=== PATIENT | male | born 1970 | race Caucasian/White ===

== ENCOUNTER 2017-03-08 23:24 | Emergency (ER) | payer MEDICARE, OTHER ==
[~2017-03-08] VITALS: Ht 162.6 cm; Wt 51.9 kg
[~2017-03-08 23:24] MED LIST: BACTRIM DS TAB1 EACH PO; CEPHALEXIN500 MG PO; HALOPERIDOL2 MG; HALOPERIDOL2 MG PO
== END 2017-03-09 00:21 | disposition home or self-care (01) ==
LOC: ED 23:24
DX: R63.4 Abnormal weight loss (principal); F15.10 Other stimulant abuse, uncomplicated; F99 Mental disorder, not otherwise specified; M79.673 Pain in unspecified foot; G89.29 Other chronic pain; F17.200 Nicotine dependence, unspecified, uncomplicated
CPT/HCPCS: 99282

== ENCOUNTER 2017-06-09 22:11 | Emergency (ER) | payer MEDICARE, OTHER | END 2017-06-09 22:20 | disposition left against medical advice (07) | LOC: ED 22:11 | DX: Z53.21 Procedure and treatment not carried out due to patient leaving prior to being seen by health care provider (principal) ==

== ENCOUNTER 2017-06-17 22:56 | Emergency (ER) | payer MEDICARE, OTHER ==
[~2017-06-17] VITALS: Ht 162.6 cm; Wt 54.0 kg
[2017-06-18] MEDS ORDERED: VENTOLIN HFA18 GM INH (00:25)
[2017-06-18] MEDS ORDERED: PREDNISONE20 MG PO (00:25)
--- NOTE | 2017-06-18 08:29 | EKG ---
[facility] [address] [facility] [place], [place] [address] Signed Normal sinus rhythm Possible Left atrial enlargement Nonspecific T wave abnormality Abnormal ECG No previous ECGs available Confirmed by CANDICE BOTELLO MD ([id number]) on 06/18/2017 8:29:52 AM Electronically Signed By: CANDICE BOTELLO MD 06/18/17 0829 PATIENT NAME: VALENTINO SORTO LYDIA Electrocardiogram DATE OF : 68 PHYSICIAN: CANDICE BOTELLO MD REPORT #: [id number] REPORT IS CONFIDENTIAL AND NOT TO BE RELEASED WITHOUT AUTHORIZATION
== END 2017-06-18 00:39 | disposition home or self-care (01) ==
LOC: ED 22:56
DX: J44.1 Chronic obstructive pulmonary disease with (acute) exacerbation (principal); F17.200 Nicotine dependence, unspecified, uncomplicated
CPT/HCPCS: 71010; 93005; 93010; 94640; 99284; J7512

== ENCOUNTER 2017-08-07 14:50 | Emergency (ER) | payer MEDICARE, OTHER ==
[~2017-08-07] VITALS: Ht 162.6 cm; Wt 54.0 kg
[~2017-08-07 14:50] MED LIST changes: +PREDNISONE20 MG PO; +VENTOLIN HFA18 GM INH
[2017-08-07] MEDS ORDERED: VENTOLIN HFA18 GM INH (15:21)
[2017-08-07] MEDS ORDERED: METHYLPREDNISOLO4 M1 PO (15:21)
[2017-08-07] MEDS ORDERED: ZITHROMAX250 MG PO (15:21)
[2017-08-07] MEDS ORDERED: OSELTAMIVIR PHO75 MG PO (15:26)
[2017-08-07] MEDS ORDERED: ZOFRAN ODT4 MG PO (15:26)
== END 2017-08-07 15:34 | disposition home or self-care (01) ==
LOC: ED 14:50
DX: J40 Bronchitis, not specified as acute or chronic (principal); F17.200 Nicotine dependence, unspecified, uncomplicated; Z98.890 Other specified postprocedural states; Z79.899 Other long term (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
CPT/HCPCS: 99283

== ENCOUNTER 2017-09-07 08:25 | Emergency (ER) | payer MEDICARE, OTHER ==
[~2017-09-07] VITALS: Ht 162.6 cm; Wt 54.0 kg
[~2017-09-07 08:25] MED LIST changes: +METHYLPREDNISOLO4 M1 PO; +OSELTAMIVIR PHO75 MG PO; +ZITHROMAX250 MG PO; +ZOFRAN ODT4 MG PO
[2017-09-07] MEDS ORDERED: IBUPROFEN600 MG PO (09:08)
[2017-09-07] MEDS ORDERED: CLEOCIN HCL300 MG PO (09:08)
== END 2017-09-07 09:21 | disposition home or self-care (01) ==
LOC: ED 08:25
PROC: 0H9FXZZ Drainage of Right Hand Skin, External Approach (ICD-10-PCS; principal; 2017-09-07)
DX: L03.011 Cellulitis of right finger (principal); F17.200 Nicotine dependence, unspecified, uncomplicated; Z79.899 Other long term (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
CPT/HCPCS: 10060; 99283

== ENCOUNTER 2017-09-28 13:10 | Emergency (ER) | payer MEDICARE, OTHER ==
[~2017-09-28] VITALS: Ht 162.6 cm; Wt 54.0 kg
[~2017-09-28 13:10] MED LIST changes: +CLEOCIN HCL300 MG PO; +IBUPROFEN600 MG PO
[2017-09-28] MEDS ORDERED: ROBITUSSIN COU237 M2 PO (13:27)
[2017-09-28] MEDS ORDERED: PROAIR HFA8.5 GM INH (13:27)
== END 2017-09-28 13:35 | disposition home or self-care (01) ==
LOC: ED 13:10
DX: J06.9 Acute upper respiratory infection, unspecified (principal); F17.200 Nicotine dependence, unspecified, uncomplicated; Z79.2 Long term (current) use of antibiotics; Z79.899 Other long term (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
CPT/HCPCS: 99283

== ENCOUNTER 2017-10-07 23:13 | Emergency (ER) | payer MEDICARE, OTHER ==
[~2017-10-07] VITALS: Ht 162.6 cm; Wt 54.0 kg
[~2017-10-07 23:13] MED LIST changes: +PROAIR HFA8.5 GM INH; +ROBITUSSIN COU237 M2 PO
[2017-10-08] MEDS ORDERED: BACTRIM DS TAB1 EACH PO (00:13)
== END 2017-10-08 00:21 | disposition home or self-care (01) ==
LOC: ED 23:13
DX: L08.9 Local infection of the skin and subcutaneous tissue, unspecified (principal); F17.200 Nicotine dependence, unspecified, uncomplicated
CPT/HCPCS: 99283

== ENCOUNTER 2017-12-22 07:29 | Emergency (ER) | payer MEDICARE, OTHER ==
[~2017-12-22] VITALS: Ht 162.6 cm; Wt 54.0 kg
[2017-12-22] MEDS ORDERED: PIMOZIDE PO (09:38)
== END 2017-12-22 07:45 | disposition home or self-care (01) ==
LOC: ED 07:29
DX: M79.89 Other specified soft tissue disorders (principal)

== ENCOUNTER 2019-01-27 08:58 | Emergency (ER) | payer SELFPAY ==
[~2019-01-27] VITALS: Ht 162.6 cm; Wt 56.7 kg
[~2019-01-27 08:58] MED LIST changes: +PIMOZIDE PO
--- OUTSIDE RECORDS SUMMARY | 2019-01-27 09:02 | XMS ---
PreManage Notification: VALENTINO SORTO Security Joist Setter Events No recent Security Events currently on file CRITERIA MET - Group Notification - [facility] - Has Care Guidelines CARE PROVIDERS There are no care providers on record at this time. [place] has no Care Guidelines for this patient. Care History Social 10/07/2017 [facility] - CHW Is unable to contact patient. - Phone number on record is no longer in service. - Please update phone number if patient is seen in ED and or contact CHW at [phone]. Care Recommendation: This patient has had 5 or more Emergency Department visits in the last 12 months.\T\nbsp; Patient requires education on the scope and purpose of the ED as an acute care provider not a Primary Care Provider and should not be utilized for chronic conditions.\T\nbsp; If patient returns to ED please contact Community Health WorkerDanuta at [phone]. These are guidelines and the provider should exercise clinical judgment when providing care. E.D. VISIT COUNT ([address] 2 [facility] TOTAL 2 NOTE: Visits indicate total known visits. ED/UCC VISIT TRACKING (12 MO.) 01/27/2019 09:01 [facility] [place] TYPE: Emergency COMPLAINT: - R LEG SWOLLEN/DIZZY 02/21/2018 17:59 [facility] [place] TYPE: Emergency COMPLAINT: - SKIN ISSUES ON HANDS FEET DIAGNOSES: - Other shelter (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 - Delusional disorders - Nicotine dependence, unspecified, uncomplicated - Other specified disorders of the skin and subcutaneous tissue - Encounter for issue of repeat prescription INPATIENT VISIT TRACKING (12 MO.) No inpatient visits to display in this time frame [id number]
[2019-01-27] MEDS ORDERED: KEFLEX500 MG PO (10:18)
== END 2019-01-27 10:28 | disposition home or self-care (01) ==
LOC: ED 08:58
DX: L03.115 Cellulitis of right lower limb (principal); F17.200 Nicotine dependence, unspecified, uncomplicated; Z79.899 Other long term (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
CPT/HCPCS: 93971; 99283-25

== ENCOUNTER 2020-01-23 08:52 | Emergency (ER) | payer MEDICARE ==
[~2020-01-23] VITALS: Ht 162.6 cm; Wt 56.7 kg
[~2020-01-23 08:52] MED LIST changes: +KEFLEX500 MG PO
--- OUTSIDE RECORDS SUMMARY | 2020-01-23 08:54 | XMS ---
PreManage Notification: VALENTINO SORTO Security Oiler Bander Events No recent Security Events currently on file CRITERIA MET - Group Notification CARE PROVIDERS There are no care providers on record at this time. [place] has no Care Guidelines for this patient. Care History Social 10/07/2017 [facility] - CHW Is unable to contact patient. - Phone number on record is no longer in service. - Please update phone number if patient is seen in ED and or contact CHW at [phone]. Care Recommendation: This patient has had 5 or more Emergency Department visits in the last 12 months.\T\nbsp; Patient requires education on the scope and purpose of the ED as an acute care provider not a Primary Care Provider and should not be utilized for chronic conditions.\T\nbsp; If patient returns to ED please contact Community Health WorkerDanuta at [phone]. These are guidelines and the provider should exercise clinical judgment when providing care. E.D. VISIT COUNT (12 MO.) 3 [facility] TOTAL 3 NOTE: Visits indicate total known visits. ED/UCC VISIT TRACKING (12 MO.) 01/23/2020 08:53 [facility] [place] TYPE: Emergency COMPLAINT: - ANKLE PAIN, POSSIBLE INFECTION 11/06/2019 01:12 [facility] [place] TYPE: Emergency COMPLAINT: - SPIDERS IN SKIN 01/27/2019 09:01 [facility] [place] TYPE: Emergency COMPLAINT: - R LEG SWOLLEN/DIZZY DIAGNOSES: - Cellulitis of right lower limb - Other snf (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 - Other specified soft tissue disorders - Nicotine dependence, unspecified, uncomplicated INPATIENT VISIT TRACKING (12 MO.) No inpatient visits to display in this time frame [id number]
[2020-01-23] MEDS ORDERED: PREDNISONE20 MG PO (11:22)
== END 2020-01-23 11:44 | disposition home or self-care (01) ==
LOC: ED 08:52
DX: M10.9 Gout, unspecified (principal); F17.200 Nicotine dependence, unspecified, uncomplicated
CPT/HCPCS: 73610; 85379; 99283

== ENCOUNTER 2020-04-01 02:54 | Emergency (ER) | payer MEDICARE, OTHER ==
[~2020-04-01] VITALS: Ht 162.6 cm; Wt 56.7 kg
--- OUTSIDE RECORDS SUMMARY | 2020-04-01 02:58 | XMS ---
PreManage Notification: VALENTINO SORTO Security Rn Sane Events No recent Security Events currently on file CRITERIA MET - Group Notification CARE PROVIDERS HARI [facility] 01/24/2020-Current PHONE: [phone] [place] has no Care Guidelines for this patient. Care History Medical/Surgical 01/24/2020 [facility] - PATIENT CONTACT NUMBER PROVIDED - PATIENT NO LONGER RESIDES AT THE ADDRESS, FAMILY IS UNKNOWN OF PATIENTS CURRENT RESIDENCE. - IF PATIENT IS SEE IN THE ED AGAIN- PLEASE REFER TO WALK IN CLINIC FOR NON URGENT MEDICAL NEEDS. - PLEASE CONTACT CHWBryce SURESH\\T\\nbsp; [phone] FOR FURTHER CONTACT WITH PATIENT. Social 10/07/2017 [facility] - CHW Is unable to contact patient. - Phone number on record is no longer in service. - Please update phone number if patient is seen in ED and or contact CHW at [phone]. Care Recommendation: This patient has had 5 or more Emergency Department visits in the last 12 months.\\T\\nbsp; Patient requires education on the scope and purpose of the ED as an acute care provider not a Primary Care Provider and should not be utilized for chronic conditions.\\T\\nbsp; If patient returns to ED please contact Community Health WorkerDanuta at [phone]. These are guidelines and the provider should exercise clinical judgment when providing care. E.D. VISIT COUNT (12 MO.) [address] [facility] TOTAL 3 NOTE: Visits indicate total known visits. ED/UCC VISIT TRACKING (12 MO.) 04/01/2020 02:55 [facility] [place] TYPE: Emergency COMPLAINT: - "SPIDERS IN MY BODY" 01/23/2020 08:53 [facility] [place] TYPE: Emergency COMPLAINT: - ANKLE PAIN, POSSIBLE INFECTION DIAGNOSES: - Nicotine dependence, unspecified, uncomplicated - Pain in left foot - Gout, unspecified 11/06/2019 01:12 [facility] [place] TYPE: Emergency COMPLAINT: - SPIDERS IN SKIN INPATIENT VISIT TRACKING (12 MO.) No inpatient visits to display in this time frame [id number]
== END 2020-04-01 03:22 | disposition home or self-care (01) ==
LOC: ED 02:54
DX: R20.0 Anesthesia of skin (principal)

== ENCOUNTER 2020-05-09 16:53 | Emergency (ER) | payer MEDICARE, OTHER ==
[~2020-05-09] VITALS: Ht 175.3 cm; Wt 54.4 kg
--- OUTSIDE RECORDS SUMMARY | 2020-05-09 16:56 | XMS ---
PreManage Notification: VALENTINO SORTO Security Technology Intern Events No recent Security Events currently on file CRITERIA MET - Group Notification CARE PROVIDERS HARI [facility] 01/24/2020-Current PHONE: [phone] [place] has no Care Guidelines for this patient. Care History Medical/Surgical 01/24/2020 [facility] - PATIENT CONTACT NUMBER PROVIDED - PATIENT NO LONGER RESIDES AT THE ADDRESS, FAMILY IS UNKNOWN OF PATIENTS CURRENT RESIDENCE. - IF PATIENT IS SEE IN THE ED AGAIN- PLEASE REFER TO WALK IN CLINIC FOR NON URGENT MEDICAL NEEDS. - PLEASE CONTACT CHWBryce SURESH\\T\\nbsp; [phone] FOR FURTHER CONTACT WITH PATIENT. Social 10/07/2017 [facility] - CHW Is unable to contact patient. - Phone number on record is no longer in service. - Please update phone number if patient is seen in ED and or contact CHW at [phone]. Care Recommendation: This patient has had 5 or more Emergency Department visits in the last 12 months.\\T\\nbsp; Patient requires education on the scope and purpose of the ED as an acute care provider not a Primary Care Provider and should not be utilized for chronic conditions.\\T\\nbsp; If patient returns to ED please contact Community Health WorkerDanuta at [phone]. These are guidelines and the provider should exercise clinical judgment when providing care. E.D. VISIT COUNT (12 MO.) [address] [facility] TOTAL 4 NOTE: Visits indicate total known visits. ED/UCC VISIT TRACKING (12 MO.) 05/09/2020 16:54 [facility] [place] TYPE: Emergency COMPLAINT: - BLOOD IN STOOL 04/01/2020 02:55 [facility] [place] TYPE: Emergency COMPLAINT: - "SPIDERS IN MY BODY" DIAGNOSES: - Anesthesia of skin - Anesthesia of skin 01/23/2020 08:53 [facility] [place] TYPE: Emergency COMPLAINT: - ANKLE PAIN, POSSIBLE INFECTION DIAGNOSES: - Nicotine dependence, unspecified, uncomplicated - Pain in left foot - Gout, unspecified 11/06/2019 01:12 [facility] [place] TYPE: Emergency COMPLAINT: - SPIDERS IN SKIN INPATIENT VISIT TRACKING (12 MO.) No inpatient visits to display in this time frame [id number]
== END 2020-05-09 19:07 | disposition home or self-care (01) ==
LOC: ED 16:53
DX: K59.00 Constipation, unspecified (principal); K60.2 Anal fissure, unspecified; F17.200 Nicotine dependence, unspecified, uncomplicated
CPT/HCPCS: 80048; 85025; 99284

== ENCOUNTER 2020-05-24 06:03 | Emergency (ER) | payer MEDICARE, OTHER ==
[~2020-05-24] VITALS: Ht 162.6 cm; Wt 53.5 kg
--- OUTSIDE RECORDS SUMMARY | 2020-05-24 06:04 | XMS ---
PreManage Notification: VALENTINO SORTO Security Electronics Worker Events No recent Security Events currently on file CRITERIA MET - Group Notification - [facility] - 2 Visits in 30 Days CARE PROVIDERS HARI [facility] 01/24/2020-Current PHONE: [phone] [place] has no Care Guidelines for this patient. Care History Social 10/07/2017 [facility] - CHW Is unable to contact patient. - Phone number on record is no longer in service. - Please update phone number if patient is seen in ED and or contact EMMANUELW at [phone]. Care Recommendation: This patient has had 5 or more Emergency Department visits in the last 12 months.\\T\\nbsp; Patient requires education on the scope and purpose of the ED as an acute care provider not a Primary Care Provider and should not be utilized for chronic conditions.\\T\\nbsp; If patient returns to ED please contact Community Health WorkerDanuta at [phone]. These are guidelines and the provider should exercise clinical judgment when providing care. Medical/Surgical 05/10/2020 [facility] - PATIENT NUMBER LISTED IS NOT A GOOD CONTACT NUMBER FOR PATIENT- PATIENT FAMILY MEMBER STATED PATIENT NO LONGER RESIDES AT THEIR RESIDENCE -PATIENT CURRENTLY LIVES ON [place] STRE[address]. 01/24/2020 [facility] - PATIENT CONTACT NUMBER PROVIDED - PATIENT NO LONGER RESIDES AT THE ADDRESS, FAMILY IS UNKNOWN OF PATIENTS CURRENT RESIDENCE. - IF PATIENT IS SEEN IN THE ED AGAIN- PLEASE REFER TO WALK IN CLINIC FOR NON URGENT MEDICAL NEEDS. - [facility]; [phone] FOR FURTHER CONTACT WITH PATIENT. Shabazz VISIT COUNT (12 MO.) 5 [facility] TOTAL 5 NOTE: Visits indicate total known visits. ED/UCC VISIT TRACKING (12 MO.) 05/24/2020 06:03 [facility] [place] TYPE: Emergency COMPLAINT: - SUICIDAL 05/09/2020 16:[address] [facility] [place] TYPE: Emergency COMPLAINT: - CONSTIPATION DIAGNOSES: - Nicotine dependence, unspecified, uncomplicated - Constipation, unspecified - Anal fissure, unspecified 04/01/2020 02:55 [facility] [place] TYPE: Emergency COMPLAINT: - "SPIDERS IN MY BODY" DIAGNOSES: - Anesthesia of skin - Anesthesia of skin 01/23/2020 08:53 [facility] [place] [facility] [place] TYPE: Emergency COMPLAINT: - ANKLE PAIN, POSSIBLE INFECTION DIAGNOSES: - Nicotine dependence, unspecified, uncomplicated - Pain in left foot - Gout, unspecified 11/06/2019 01:12 [facility] [place] TYPE: Emergency COMPLAINT: - SPIDERS IN SKIN INPATIENT VISIT TRACKING (12 MO.) No inpatient visits to display in this time frame [id number]
== END 2020-05-24 06:47 | disposition home or self-care (01) ==
LOC: ED 06:03
DX: F15.10 Other stimulant abuse, uncomplicated (principal); F17.200 Nicotine dependence, unspecified, uncomplicated
CPT/HCPCS: 80053; 80176; 81001; 84443; 85025; 99284; G0480

== ENCOUNTER 2020-06-16 12:49 | Emergency (ER) | payer MEDICARE, OTHER ==
[~2020-06-16] VITALS: Ht 162.6 cm; Wt 54.4 kg
--- OUTSIDE RECORDS SUMMARY | 2020-06-16 12:52 | XMS ---
PreManage Notification: VALENTINO SORTO Security Supervisor Fruit Grading Events No recent Security Events currently on file CRITERIA MET - Group Notification - [facility] - 2 Visits in 30 Days CARE PROVIDERS HARI [facility] 01/24/2020-Current PHONE: [phone] [place] has no Care Guidelines for this patient. Care History Medical/Surgical 05/10/2020 [facility] - PATIENT NUMBER LISTED IS NOT A GOOD CONTACT NUMBER FOR PATIENT- PATIENT FAMILY MEMBER STATED PATIENT NO LONGER RESIDES AT THEIR RESIDENCE -PATIENT CURRENTLY LIVES ON [place] STRE[address]. 01/24/2020 [facility] - PATIENT CONTACT NUMBER PROVIDED - PATIENT NO LONGER RESIDES AT THE ADDRESS, FAMILY IS UNKNOWN OF PATIENTS CURRENT RESIDENCE. - IF PATIENT IS SEEN IN THE ED AGAIN- PLEASE REFER TO WALK IN CLINIC FOR NON URGENT MEDICAL NEEDS. - PLEASE CONTACT CHWBryce SURESH\\T\\nbsp; [phone] FOR FURTHER CONTACT WITH PATIENT. Social 10/07/2017 [facility] - CHW Is unable to contact patient. - Phone number on record is no longer in service. - Please update phone number if patient is seen in ED and or contact CHW at [phone]. Care Recommendation: This patient has had 5 or more Emergency Department visits in the last 12 months.\\T\\nbsp; Patient requires education on the scope and purpose of the ED as an acute care provider not a Primary Care Provider and should not be utilized for chronic conditions.\\T\\nbsp; If patient returns to ED please contact Community Health Worker Danuta at [phone]. These are guidelines and the provider should exercise clinical judgment when providing care. EGenoveva VISIT COUNT (12 MO.) 6 [facility] TOTAL 6 NOTE: Visits indicate total known visits. ED/UCC VISIT TRACKING (12 MO.) 06/16/2020 12:50 [facility] [place] TYPE: Emergency COMPLAINT: - L HAND SWELLING 05/24/2020 06:[address] [facility] [place] TYPE: Emergency COMPLAINT: - SUICIDAL DIAGNOSES: - Other stimulant abuse, uncomplicated - Nicotine dependence, unspecified, uncomplicated 05/09/2020 16:[address] [facility] [place] TYPE: Emergency COMPLAINT: - CONSTIPATION DIAGNOSES: - Nicotine dependence, unspecified, uncomplicated - Constipation, unspecified - Anal fissure, unspecified 04/01/2020 02:[address] [facility] [place] TYPE: Emergency COMPLAINT: - "SPIDERS IN MY BODY" DIAGNOSES: - Anesthesia of skin - Anesthesia of skin 01/23/2020 08:[address] [facility] [place] TYPE: Emergency COMPLAINT: - ANKLE PAIN, POSSIBLE INFECTION DIAGNOSES: - Nicotine dependence, unspecified, uncomplicated - Pain in left foot - Gout, unspecified 11/06/2019 01:12 [facility] [place] TYPE: Emergency COMPLAINT: - SPIDERS IN SKIN INPATIENT VISIT TRACKING (12 MO.) No inpatient visits to display in this time frame [id number]
[2020-06-16] MEDS ORDERED: CLEOCIN HCL300 MG PO (14:43)
== END 2020-06-16 15:21 | disposition home or self-care (01) ==
LOC: ED 12:49
DX: K04.7 Periapical abscess without sinus (principal); M79.89 Other specified soft tissue disorders; F17.200 Nicotine dependence, unspecified, uncomplicated
CPT/HCPCS: 73130; 99283-25

== ENCOUNTER 2020-07-08 08:20 | Emergency (ER) | payer MEDICARE ==
[~2020-07-08] VITALS: Ht 162.6 cm; Wt 54.4 kg
--- OUTSIDE RECORDS SUMMARY | 2020-07-08 08:24 | XMS ---
PreManage Notification: VALENTINO SORTO Security Tar Distillation Supervisor Events No recent Security Events currently on file CRITERIA MET - Group Notification - 6 ED Visits in 6 Months - [facility] [place] [facility] - 2 Visits in 30 Days CARE PROVIDERS HARI [facility] 01/24/2020-Current PHONE: [phone] [place] has no Care Guidelines for this patient. Care History Medical/Surgical 05/10/2020 [facility] - PATIENT NUMBER LISTED IS NOT A GOOD CONTACT NUMBER FOR PATIENT- PATIENT FAMILY MEMBER STATED PATIENT NO LONGER RESIDES AT THEIR RESIDENCE -PATIENT CURRENTLY LIVES ON [place] [address]. 01/24/2020 [facility] - PATIENT CONTACT NUMBER PROVIDED - PATIENT NO LONGER RESIDES AT THE ADDRESS, FAMILY IS UNKNOWN OF PATIENTS CURRENT RESIDENCE. - IF PATIENT IS SEEN IN THE ED AGAIN- PLEASE REFER TO WALK IN CLINIC FOR NON URGENT MEDICAL NEEDS. - PLEASE CONTACT CHW- [place]\\T\\nbsp; [phone] FOR FURTHER CONTACT WITH PATIENT. Social 10/07/2017 [facility] - CHW Is unable to contact patient. - Phone number on record is no longer in service. - Please update phone number if patient is seen in ED and or contact CHW at [phone]. Care Recommendation: This patient has had 5 or more Emergency Department visits in the last 12 months.\\T\\nbsp; Patient requires education on the scope and purpose of the ED as an acute care provider not a Primary Care Provider and should not be utilized for chronic conditions.\\T\\nbsp; If patient returns to ED please contact Community Health WorkerKerwin at [phone]. These are guidelines and the provider should exercise clinical judgment when providing care. ETroyD. VISIT COUNT (12 MO.) 7 [facility] TOTAL 7 NOTE: Visits indicate total known visits. ED/UCC VISIT TRACKING (12 MO.) 07/08/2020 08:21 [facility] [place] TYPE: Emergency COMPLAINT: - ABD PAIN, HAND SWELLING 06/16/2020 12:50 [facility] [place] TYPE: Emergency COMPLAINT: - L HAND SWELLING DIAGNOSES: - Other specified soft tissue disorders - Periapical abscess without sinus - Jaw pain - Nicotine dependence, unspecified, uncomplicated 05/24/2020 06:03 [facility] [place] TYPE: Emergency COMPLAINT: - SUICIDAL DIAGNOSES: - Otalgia, right ear - Other stimulant abuse, uncomplicated - Lower abdominal pain, unspecified - Rash and other nonspecific skin eruption - Nicotine dependence, unspecified, uncomplicated 05/09/2020 16:54 [facility] [place] TYPE: Emergency COMPLAINT: - CONSTIPATION DIAGNOSES: [...] visits to display in this time frame [id number]
== END 2020-07-08 11:03 | disposition home or self-care (01) ==
LOC: ED 08:20
DX: M79.89 Other specified soft tissue disorders (principal); Z87.891 Personal history of nicotine dependence
CPT/HCPCS: 36415; 73130; 80053; 83690; 84550; 85025; 85651; 99283-25

== ENCOUNTER 2020-07-12 10:17 | Emergency (ER) | payer MEDICARE ==
[~2020-07-12] VITALS: Ht 162.6 cm; Wt 54.4 kg
--- OUTSIDE RECORDS SUMMARY | 2020-07-12 10:20 | XMS ---
PreManage Notification: VALENTINO SORTO Security Audit Senior Associate Events No recent Security Events currently on file CRITERIA MET - Group Notification - 6 ED Visits in 6 Months - [facility] - 2 Visits in 30 Days CARE PROVIDERS HARI [facility] 01/24/2020-Current PHONE: [phone] [place] has no Care Guidelines for this patient. Care History Medical/Surgical 05/10/2020 [facility] - PATIENT NUMBER LISTED IS NOT A GOOD CONTACT NUMBER FOR PATIENT- PATIENT FAMILY MEMBER STATED PATIENT NO LONGER RESIDES AT THEIR RESIDENCE -PATIENT CURRENTLY LIVES ON [place] [address]. 01/24/2020 [facility] - PATIENT CONTACT NUMBER PROVIDED - PATIENT NO LONGER RESIDES AT THE ADDRESS, FAMILY IS UNKNOWN OF PATIENTS CURRENT RESIDENCE. - IF PATIENT IS SEEN IN THE ED AGAIN- PLEASE REFER TO WALK IN CLINIC FOR NON URGENT MEDICAL NEEDS. - PLEASE CONTACT CHW- KERWIN\\T\\nbsp; [phone] FOR FURTHER CONTACT WITH PATIENT. Social 10/07/2017 [facility] - CHW Is unable to contact patient. - Phone number on record is no longer in service. - Please update phone number if patient is seen in ED and or contact CHW at [phone]. Care Recommendation: This patient has had 5 or more Emergency Department visits in the last 12 months.\\T\\nbsp; Patient requires education on the scope and purpose of the ED as an acute care provider not a Primary Care Provider and should not be utilized for chronic conditions.\\T\\nbsp; If patient returns to ED please contact Community Health WorkerKerwin at [phone]. These are guidelines and the provider should exercise clinical judgment when providing care. ETroyD. VISIT COUNT (12 MO.) 8 [facility] TOTAL 8 NOTE: Visits indicate total known visits. ED/UCC VISIT TRACKING (12 MO.) 07/12/2020 10:17 [facility] [place] TYPE: Emergency COMPLAINT: - LEFT ARM/HAND SWELLING NON INJURY 07/08/2020 08:21 [facility] [place] TYPE: Emergency COMPLAINT: - HAND SWELLING DIAGNOSES: - Other specified soft tissue disorders - Personal history of nicotine dependence 06/16/2020 12:50 [facility] [place] TYPE: Emergency [...] Nicotine dependence, unspecified, uncomplicated 05/09/2020 16:54 [facility] [place] TYPE: Emergency COMPLAINT: - CONSTIPATION [...] visits to display in this time frame [id number]
[2020-07-12] MEDS ORDERED: CLEOCIN HCL300 MG PO (14:16)
== END 2020-07-12 14:29 | disposition home or self-care (01) ==
LOC: ED 10:17
DX: L03.114 Cellulitis of left upper limb (principal); Z87.891 Personal history of nicotine dependence
CPT/HCPCS: 85025; 85651; 93971; 99284-25

== ENCOUNTER 2020-07-15 12:59 | Emergency (ER) | payer MEDICARE ==
[~2020-07-15] VITALS: Ht 162.6 cm; Wt 54.4 kg
--- OUTSIDE RECORDS SUMMARY | 2020-07-15 13:02 | XMS ---
PreManage Notification: VALENTINO SORTO Security Hand Profiler Events No recent Security Events currently on file CRITERIA MET - Group Notification - 6 ED Visits in 6 Months - [facility] - 2 Visits in 30 Days CARE PROVIDERS HARI [facility] 01/24/2020-Current PHONE: [phone] [place] has no Care Guidelines for this patient. Care History Social 10/07/2017 [facility] - CHW Is unable to contact patient. - Phone number on record is no longer in service. - Please update phone number if patient is seen in ED and or contact CHW at [phone]. Care Recommendation: This patient has had 5 or more Emergency Department visits in the last 12 months.\\T\\nbsp; Patient requires education on the scope and purpose of the ED as an acute care provider not a Primary Care Provider and should not be utilized for chronic conditions.\\T\\nbsp; If patient returns to ED please contact Community Health WorkerKerwin at [phone]. These are guidelines and the provider should exercise clinical judgment when providing care. Medical/Surgical 05/10/2020 [facility] - PATIENT NUMBER LISTED IS NOT A GOOD CONTACT NUMBER FOR PATIENT- PATIENT FAMILY MEMBER STATED PATIENT NO LONGER RESIDES AT THEIR RESIDENCE -PATIENT CURRENTLY LIVES ON THE STREET. 01/24/2020 [facility] - PATIENT CONTACT NUMBER PROVIDED - PATIENT NO LONGER RESIDES AT THE ADDRESS, FAMILY IS UNKNOWN OF PATIENTS CURRENT RESIDENCE. - IF PATIENT IS SEEN IN THE ED AGAIN- PLEASE REFER TO WALK IN CLINIC FOR NON URGENT MEDICAL NEEDS. - PLEASE CONTACT [facility]- [facility]; [phone] FOR FURTHER CONTACT WITH PATIENT. Shabazz VISIT COUNT (12 MO.) 9 [facility] TOTAL 9 NOTE: Visits indicate total known visits. ED/UCC VISIT TRACKING (12 MO.) 07/15/2020 12:59 [facility] [place] TYPE: Emergency COMPLAINT: - EYE PAIN 07/12/2020 10:17 [facility] [place] TYPE: Emergency COMPLAINT: - LEFT ARM/HAND SWELLING NON INJURY 07/08/2020 08:21 [facility] [place] TYPE: Emergency COMPLAINT: - HAND SWELLING [...] visits to display in this time frame [id number]
[2020-07-15] MEDS ORDERED: ERYTHROMYCIN1 GM OP (23:53)
== END 2020-07-15 13:36 | disposition left against medical advice (07) ==
LOC: ED 12:59
DX: Z53.21 Procedure and treatment not carried out due to patient leaving prior to being seen by health care provider (principal)

== ENCOUNTER 2020-07-15 21:14 | Emergency (ER) | payer MEDICARE ==
[~2020-07-15] VITALS: Ht 162.6 cm; Wt 54.4 kg
--- OUTSIDE RECORDS SUMMARY | 2020-07-15 21:18 | XMS ---
PreManage Notification: VALENTINO SORTO Security Manager Orange Events No recent Security Events currently on file CRITERIA MET - Group Notification - 6 ED Visits in 6 Months - [facility] - 2 Visits in 30 Days CARE PROVIDERS HARI [facility] 01/24/2020-Current PHONE: [phone] [place] has no Care Guidelines for this patient. Care History Social 10/07/2017 [facility] - CHW Is unable to contact patient. - Phone number on record is no longer in service. - Please update phone number if patient is seen in ED and or contact CHW at [phone]. Care Recommendation: This patient has had 5 or more Emergency Department visits in the last 12 months.\\T\\nbsp; Patient requires education on the scope and purpose of the ED as an acute care provider not a Primary Care Provider and should not be utilized for chronic conditions.\\T\\nbsp; If patient returns to ED please contact Community Health WorkerKerwin at [phone]. These are guidelines and the provider should exercise clinical judgment when providing care. Medical/Surgical 05/10/2020 [facility] - PATIENT NUMBER LISTED IS NOT A GOOD CONTACT NUMBER FOR PATIENT- PATIENT FAMILY MEMBER STATED PATIENT NO LONGER RESIDES AT THEIR RESIDENCE -PATIENT CURRENTLY LIVES ON THE STREET. 01/24/2020 [facility] - PATIENT CONTACT NUMBER PROVIDED - PATIENT NO LONGER RESIDES AT THE ADDRESS, FAMILY IS UNKNOWN OF PATIENTS CURRENT RESIDENCE. - IF PATIENT IS SEEN IN THE ED AGAIN- PLEASE REFER TO WALK IN CLINIC FOR NON URGENT MEDICAL NEEDS. - PLEASE CONTACT [facility]- [facility]; [phone] FOR FURTHER CONTACT WITH PATIENT. Shabazz VISIT COUNT (12 MO.) 10 LASHAY Delgado TOTAL 10 NOTE: Visits indicate total known visits. ED/UCC VISIT TRACKING (12 MO.) 07/15/2020 21:15 [facility] [place] [place] TYPE: Emergency COMPLAINT: - INJURED HAND 07/15/2020 12:59 [facility] Sh[facility] [place] TYPE: Emergency [...] Nicotine dependence, unspecified, uncomplicated 05/24/2020 06:03 LASHAY [place]olan [place] TYPE: Emergency COMPLAINT: - SUICIDAL DIAGNOSES: - Otalgia, right ear - Other stimulant abuse, uncomplicated - Lower abdominal pain, unspecified - Rash and other nonspecific skin eruption - Nicotine dependence, unspecified, uncomplicated 05/09/2020 16:54 L[facility]AY [place] TYPE: Emergency COMPLAINT: - CONSTIPATION DIAGNOSES: - Nicotine dependence, unspecified, uncomplicated - Constipation, unspecified - Anal fissure, unspecified 04/01/2020 02:[address] [facility] [place] TYPE: Emergency COMPLAINT: - "SPIDERS IN MY BODY" DIAGNOSES: - Anesthesia of skin - Anesthesia of skin 01/23/2020 08:53 LASHAY Smolan [place] TYPE: Emergency COMPLAINT: - ANKLE PAIN, POSSIBLE INFECTION DIAGNOSES: - Nicotine dependence, unspecified, uncomplicated - Pain in left foot - Gout, unspecified 11/06/2019 01:12 [facility] [place] TYPE: Emergency COMPLAINT: - SPIDERS IN SKIN INPATIENT VISIT TRACKING (12 MO.) No inpatient visits to display in this time frame [id number]
[2020-07-15] MEDS ORDERED: ERYTHROMYCIN1 GM OP (23:53)
--- NOTE | 2020-07-16 05:41 | EKG ---
[facility] [address] [place] [address] Signed Normal sinus rhythm Nonspecific T wave abnormality Abnormal ECG When compared with ECG of 17-JUN-2017 23:35, No significant change was found Confirmed by CANDICE BOTELLO MD ([id number]) on 07/16/2020 5:41:05 AM Electronically Signed By: CANDICE BOTELLO MD 07/16/20 0541 PATIENT NAME: VALENTINO SORTO Electrocardiogram DATE OF : 68 PHYSICIAN: CANDICE BOTELLO MD REPORT #: [id number] REPORT IS CONFIDENTIAL AND NOT TO BE RELEASED WITHOUT AUTHORIZATION
== END 2020-07-16 00:10 | disposition home or self-care (01) ==
LOC: ED 21:14
DX: S05.02XA Injury of conjunctiva and corneal abrasion without foreign body, left eye, initial encounter (principal); M79.89 Other specified soft tissue disorders; N17.9 Acute kidney failure, unspecified; F15.10 Other stimulant abuse, uncomplicated; F12.10 Cannabis abuse, uncomplicated; F17.200 Nicotine dependence, unspecified, uncomplicated; X58.XXXA Exposure to other specified factors, initial encounter
CPT/HCPCS: 71045; 80053; 81001; 83690; 85025; 85651; 93005; 93010; 99284-25; A9270

== ENCOUNTER 2020-07-25 15:58 | Emergency (ER) | payer MEDICARE, OTHER ==
[~2020-07-25] VITALS: Ht 162.6 cm; Wt 54.4 kg
[~2020-07-25 15:58] MED LIST changes: +ERYTHROMYCIN1 GM OP
--- OUTSIDE RECORDS SUMMARY | 2020-07-25 16:00 | XMS ---
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 07/15/2020 12:59 - Other Details: PATIENT LWBS. CRITERIA MET - Group Notification - 6 ED Visits in 6 Months - [facility] - 2 Visits in 30 Days CARE PROVIDERS JAMILA NORIEGA [facility] 01/24/2020-Current PHONE: [phone] [place] has no Care Guidelines for this patient. Care History Medical/Surgical 07/17/2020 [facility] - W HAS NOT BEEN ABLE TO CONTACT PATIENT- LEFT A MESSAGE PHONE # [phone] . - PLEASE CONTACT CHW IF PATIENT IS SEEN IN THE ED DURING THE DAY - IF I AM UNAVAILABLE PLEASE CONTACT CASE MANAGEMENT. 05/10/2020 [facility] - PATIENT NUMBER LISTED IS NOT A GOOD CONTACT NUMBER FOR PATIENT- PATIENT FAMILY MEMBER STATED PATIENT NO LONGER RESIDES AT THEIR RESIDENCE -PATIENT CURRENTLY LIVES ON [place] STREET. 01/24/2020 [facility] - PATIENT CONTACT NUMBER PROVIDED - PATIENT NO LONGER RESIDES AT THE ADDRESS, FAMILY IS UNKNOWN OF PATIENTS CURRENT RESIDENCE. - IF PATIENT IS SEEN IN THE ED AGAIN- PLEASE REFER TO WALK IN CLINIC FOR NON URGENT MEDICAL NEEDS. - PLEASE CONTACT CHW- KERWIN\\Moe\\charlesp; [phone] FOR FURTHER CONTACT WITH PATIENT. Social 10/07/2017 [facility] - CHW Is unable to contact patient. - Phone number on record is no longer in service. - Please update phone number if patient is seen in ED and or contact CHW at [phone]. Care Recommendation: This patient has had 5 or more Emergency Department visits in the last 12 months.\\T\\nbsp; Patient requires education on the scope and purpose of the ED as an acute care provider not a Primary Care Provider and should not be utilized for chronic conditions.\\T\\nbsp; If patient returns to ED please contact Community Health WorkerKerwin at [phone]. These are guidelines and the provider should exercise clinical judgment when providing care. E.D. VISIT COUNT (12 MO.) 11 [facility] TOTAL 11 NOTE: Visits indicate total known visits. ED/C VISIT TRACKING (12 MO.) 07/25/2020 15:59 [facility] [place] TYPE: Emergency COMPLAINT: - COUGH 07/15/2020 21:15 [facility] [place] [place] TYPE: Emergency COMPLAINT: - INJURED EYE DIAGNOSES: - Exposure to other specified factors, initial encounter - Cannabis abuse, uncomplicated - Other specified soft tissue disorders - Acute kidney failure, unspecified - Injury of conjunctiva and corneal abrasion without foreign body, left eye, initial encounter - Other stimulant abuse, uncomplicated - Nicotine dependence, unspecified, uncomplicated 07/15/2020 12:59 [facility] [place] [place] TYPE: Emergency COMPLAINT: - EYE PAIN DIAGNOSES: - Procedure and treatment not carried out due to patient leaving prior to being seen by health care provider 07/12/2020 10:17 [facility] [place] [place] TYPE: Emergency COMPLAINT: - LEFT ARM/HAND SWELLING NON INJURY DIAGNOSES: - Personal history of nicotine dependence - Cellulitis of left upper limb 07/08/2020 08:21 [facility] [place] TYPE: Emergency [...] Nicotine dependence, unspecified, uncomplicated 05/09/2020 16:54 LASHAY [place] TYPE: Emergency COMPLAINT: - CONSTIPATION DIAGNOSES: - Nicotine dependence, unspecified, uncomplicated - Constipation, unspecified - Anal fissure, unspecified 04/01/2020 02:55 [facility] [place] TYPE: Emergency COMPLAINT: - "SPIDERS IN MY BODY" DIAGNOSES: - Anesthesia of skin - Anesthesia of skin 01/23/2020 08:53 [facility] [place] TYPE: Emergency COMPLAINT: - ANKLE PAIN, POSSIBLE INFECTION DIAGNOSES: - Nicotine dependence, unspecified, uncomplicated - Pain in left foot - Gout, unspecified 11/06/2019 01:[address] [facility] [address] [facility] [place] TYPE: Emergency COMPLAINT: - SPIDERS IN SKIN INPATIENT VISIT TRACKING ( MO.) No inpatient visits to display in this time frame [email or web address]
== END 2020-07-25 18:45 | disposition home or self-care (01) ==
LOC: ED 15:58
DX: R05 Cough (principal)

== ENCOUNTER 2020-09-06 01:25 | Emergency (ER) | payer MEDICARE, OTHER ==
[~2020-09-06] VITALS: Ht 162.6 cm; Wt 53.5 kg
--- OUTSIDE RECORDS SUMMARY | 2020-09-06 01:26 | XMS ---
PreManage Notification: VALENTINO SORTO Security Senior Engineering Technician Events 2 event(s) in the past 18 months Most recent security events: Elopement at [facility] 07/25/2020 15:59 - Other Details: PATIENT LWBS. Elopement at [facility] 07/15/2020 12:59 - Other Details: PATIENT LWBS. CRITERIA MET - Group Notification - 6 ED Visits in 6 Months CARE PROVIDERS JAMILA NORIEGA [facility] 01/24/2020-Current PHONE: [phone] [place] has no Care Guidelines for this patient. Care History Medical/Surgical 07/17/2020 [facility] - [facility] HAS NOT BEEN ABLE TO CONTACT PATIENT- LEFT A MESSAGE PHONE # . - PLEASE CONTACT W IF PATIENT IS SEEN IN THE ED DURING THE DAY - IF I AM UNAVAILABLE PLEASE CONTACT CASE MANAGEMENT. 05/10/2020 [facility] - PATIENT NUMBER LISTED IS NOT A GOOD CONTACT NUMBER FOR PATIENT- PATIENT FAMILY MEMBER STATED PATIENT NO LONGER RESIDES AT THEIR RESIDENCE -PATIENT CURRENTLY LIVES ON [place] STREET. 01/24/2020 [facility] - PATIENT CONTACT NUMBER PROVIDED - PATIENT NO LONGER RESIDES AT THE ADDRESS, FAMILY IS UNKNOWN OF PATIENTS CURRENT RESIDENCE. - IF PATIENT IS SEEN IN THE ED AGAIN- PLEASE REFER TO WALK IN CLINIC FOR NON URGENT MEDICAL NEEDS. - PLEASE CONTACT CHW- KERWIN\\Moe\\charlesp; [phone] FOR FURTHER CONTACT WITH PATIENT. Social 10/07/2017 [facility] - CHW Is unable to contact patient. - Phone number on record is no longer in service. - Please update phone number if patient is seen in ED and or contact CHW at [phone]. Care Recommendation: This patient has had 5 or more Emergency Department visits in the last 12 months.\\T\\nbsp; Patient requires education on the scope and purpose of the ED as an acute care provider not a Primary Care Provider and should not be utilized for chronic conditions.\\T\\nbsp; If patient returns to ED please contact Community Health WorkerKerwin at [phone]. These are guidelines and the provider should exercise clinical judgment when providing care. E.D. VISIT COUNT (12 MO.) 12 [facility] TOTAL 12 NOTE: Visits indicate total known visits. ED/UCC VISIT TRACKING (12 MO.) 09/06/2020 01:25 [facility] [place] TYPE: Emergency COMPLAINT: - MULTIPLE COMPLAINTS 07/25/2020 15:59 [facility] [place] TYPE: Emergency COMPLAINT: - COUGH DIAGNOSES: - Cough 07/15/2020 21:15 [facility] [place] TYPE: Emergency [...] visits to display in this time frame [email or web address]
== END 2020-09-06 02:40 | disposition home or self-care (01) ==
LOC: ED 01:25
DX: F15.10 Other stimulant abuse, uncomplicated (principal); F17.200 Nicotine dependence, unspecified, uncomplicated
CPT/HCPCS: 80053; 81001; 85025; 99284

== ENCOUNTER → 2020-09-17 | Emergency (ER) | payer MEDICARE, OTHER ==
[~2020-09-17] VITALS: Ht 162.6 cm; Wt 53.5 kg
--- OUTSIDE RECORDS SUMMARY | 2020-09-17 11:46 | XMS ---
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 Elopement at [facility] 07/15/2020 12:59 - Other Details: PATIENT LWBS. CRITERIA MET - Group Notification - 6 ED Visits in 6 Months - [facility] - 2 Visits in 30 Days CARE PROVIDERS HARI [facility] 01/24/2020-Current PHONE: [phone] [place] has no Care Guidelines for this patient. Care History Medical/Surgical 09/17/2020 [facility] - PATIENT FAMILY MEMBER CALLED AND PROVIDED CHW WITH PATIENT NEW CONTACT NUMBER [phone]. 09/14/2020 [facility] - PATIENT CONTACT NUMBER AND ADDRESS IS PATIENT FAMILY CONTACT. PATIENT DOES NOT RESIDE AT THE RESIDENCE BUT THEY WILL PROVIDE MESSAGE TO PATIENT. PATIENT HAS A TRAILER IN TOWN PER FAMILY. 07/17/2020 [facility] - CHW HAS NOT BEEN ABLE TO CONTACT PATIENT- LEFT A MESSAGE PHONE # . - PLEASE CONTACT CHW IF PATIENT IS SEEN IN THE ED DURING THE DAY - [phone] IF I AM UNAVAILABLE PLEASE CONTACT CASE MANAGEMENT. E.DTroy VISIT COUNT (12 MO.) 13 LASHAY Delgado TOTAL 13 NOTE: Visits indicate total known visits. ED/UCC VISIT TRACKING (12 MO.) 09/17/2020 11:40 [facility] [place] TYPE: Emergency COMPLAINT: - SKIN PROBLEM 09/06/2020 01:25 [facility] [place] [place] TYPE: Emergency COMPLAINT: - MULTIPLE COMPLAINTS DIAGNOSES: - Nicotine dependence, unspecified, uncomplicated - Restlessness and agitation - Other stimulant abuse, uncomplicated 07/25/2020 15:59 [facility] [place] [place] TYPE: Emergency [...] dependence - Cellulitis of left upper limb - Pain in left upper arm 07/08/2020 08:21 L[facility] [place] TYPE: Emergency [...] visits to display in this time frame [email or web address]
== END ==
LOC: ED 11:40
DX: L98.8 Other specified disorders of the skin and subcutaneous tissue (principal); F17.200 Nicotine dependence, unspecified, uncomplicated
CPT/HCPCS: 99282

== ENCOUNTER 2020-10-27 16:07 | Emergency (ER) | payer MEDICARE, OTHER ==
[~2020-10-27] VITALS: Ht 162.6 cm; Wt 54.0 kg
--- OUTSIDE RECORDS SUMMARY | 2020-10-27 16:10 | XMS ---
PreManage Notification: VALENTINO SORTO Security Viticulture Teacher Events 2 event(s) in the past 18 months Most recent security events: Elopement at [facility] 07/25/2020 15:59 - Other Details: PATIENT LWBS. Elopement at [facility] 07/15/2020 12:59 - Other Details: PATIENT LWBS. CRITERIA MET - Group Notification - 6 ED Visits in 6 Months CARE PROVIDERS JAMILA NORIEGA [facility] 01/24/2020-Current PHONE: [phone] [place] has no Care Guidelines for this patient. Care History Medical/Surgical 09/18/2020 [facility] REFERRAL MADE- DUE TO PATIENT ED VISIT HISTORY AND NOT CALLING CHW BACK- PATIENT WOULD BENEFIT FROM [place] A\\T\\amp;D SERVICES AND MEDICAL CASE MANAGEMENT FOLLOW UP FROM [facility] CASE MANAGEMENT. 09/17/2020 [facility] - PATIENT FAMILY MEMBER CALLED AND PROVIDED CHW WITH PATIENT NEW CONTACT NUMBER [phone]. 09/14/2020 [facility] - PATIENT CONTACT NUMBER AND ADDRESS IS PATIENT FAMILY CONTACT. PATIENT DOES NOT RESIDE AT THE RESIDENCE BUT THEY WILL PROVIDE MESSAGE TO PATIENT. PATIENT HAS A TRAILER IN TOWN PER FAMILY. E.D. VISIT COUNT (12 MO.) 15 LASHAY Delgado TOTAL 15 NOTE: Visits indicate total known visits. ED/UCC VISIT TRACKING (12 MO.) 10/27/2020 16:08 LASHAY [place]ook [place] TYPE: Emergency COMPLAINT: - MEDICAL CLEARANCE 09/20/2020 11:21 LASH[facility] [place]ook [place] TYPE: Emergency COMPLAINT: - DIZZY, SKIN PROBLEM DIAGNOSES: - Delusional disorders - Nicotine dependence, unspecified, uncomplicated 09/17/2020 11:40 LASHAY [facility]ook [place] TYPE: Emergency COMPLAINT: - SKIN PROBLEM DIAGNOSES: - Nicotine dependence, unspecified, uncomplicated - Other specified disorders of the skin and subcutaneous tissue 09/06/2020 01:25 L[facility] [place] TYPE: Emergency COMPLAINT: - MULTIPLE COMPLAINTS DIAGNOSES: - Nicotine dependence, unspecified, uncomplicated - Anorexia - Restlessness and agitation - Dizziness and giddiness - Nausea - Other stimulant abuse, uncomplicated - Marfan's syndrome, unspecified - Difficulty in walking, not elsewhere classified 07/25/2020 15:59 LASHAY Shook [place] TYPE: Emergency [...] visits to display in this time frame [id number]
== END 2020-10-27 22:26 | disposition home or self-care (01) ==
LOC: ED 16:07
DX: F15.159 Other stimulant abuse with stimulant-induced psychotic disorder, unspecified (principal); Z87.891 Personal history of nicotine dependence
CPT/HCPCS: 80053; 80176; 81001; 84443; 85025; 99284

== ENCOUNTER 2020-11-13 20:20 | Emergency (ER) | payer MEDICARE, OTHER ==
[~2020-11-13] VITALS: Ht 162.6 cm; Wt 54.0 kg
--- OUTSIDE RECORDS SUMMARY | 2020-11-13 20:24 | XMS ---
PreManage Notification: VALENTINO SORTO Security Senior Piping Designer Events 2 event(s) in the past 18 months Most recent security events: Elopement at [facility] 07/25/2020 15:59 - Other Details: PATIENT LWBS. Elopement at [facility] 07/15/2020 12:59 - Other Details: PATIENT LWBS. CRITERIA MET - Group Notification - 6 ED Visits in 6 Months - [facility] - 2 Visits in 30 Days CARE PROVIDERS HARI [facility] 01/24/2020-Current PHONE: [phone] [place] has no Care Guidelines for this patient. Care History Medical/Surgical 09/18/2020 [facility] REFERRAL MADE- DUE TO PATIENT ED VISIT HISTORY AND NOT CALLING CHW BACK- PATIENT WOULD BENEFIT FROM [place] A\\T\\amp;D SERVICES AND MEDICAL CASE MANAGEMENT FOLLOW UP FROM [facility] CASE MANAGEMENT. 09/17/2020 [facility] - PATIENT FAMILY MEMBER CALLED AND PROVIDED CHW WITH PATIENT NEW CONTACT NUMBER [phone]. 09/14/2020 [facility] - PATIENT CONTACT NUMBER AND ADDRESS IS PATIENT FAMILY CONTACT. PATIENT DOES NOT RESIDE AT THE RESIDENCE BUT THEY WILL PROVIDE MESSAGE TO PATIENT. PATIENT HAS A TRAILER IN TOWN PER FAMILY. E.D. VISIT COUNT (12 MO.) 15 LASHAY Delgado TOTAL 15 NOTE: Visits indicate total known visits. ED/UCC VISIT TRACKING (12 MO.) 11/13/2020 20:21 LASH[facility] [place] TYPE: Emergency COMPLAINT: - PT STATES HE IS NOT FEELING WELL 10/27/2020 16:08 [facility] [place] TYPE: Emergency COMPLAINT: - MEDICAL CLEARANCE DIAGNOSES: - Altered mental status, unspecified - Other stimulant abuse with stimulant-induced psychotic disorder, unspecified - Unspecified psychosis not due to a substance or known physiological condition - Other stimulant abuse, uncomplicated - Personal history of nicotine dependence 09/20/2020 11:21 [facility] [place] TYPE: Emergency COMPLAINT: - DIZZY, SKIN PROBLEM DIAGNOSES: - Delusional disorders - Nicotine dependence, unspecified, uncomplicated 09/17/2020 11:40 [facility] [place] Jeremías [place] TYPE: Emergency COMPLAINT: - SKIN PROBLEM DIAGNOSES: - Nicotine dependence, unspecified, uncomplicated - Other specified disorders of the skin and subcutaneous tissue 09/06/2020 01:25 [facility] [place] TYPE: Emergency COMPLAINT: - MULTIPLE COMPLAINTS [...] Pain in left upper arm 07/08/2020 08:[address] [facility] [address] [facility] [place] TYPE: Emergency COMPLAINT: - HAND SWELLING DIAGNOSES: - Other specified soft tissue disorders - Personal history of nicotine dependence [facility] COMPLAINT: - L HAND SWELLING DIAGNOSES: - Other specified soft tissue disorders - Periapical abscess without sinus - Jaw pain - Nicotine dependence, unspecified, uncomplicated 05/24/2020 06:[address] [facility] [address] [facility] [place] TYPE: Emergency COMPLAINT: - SUICIDAL [...] Pain in left foot - Gout, unspecified INPATIENT VISIT TRACKING (12 MO.) No inpatient visits to display in this time frame [email or web address]
== END 2020-11-13 21:11 | disposition left against medical advice (07) ==
LOC: ED 20:20
DX: F15.10 Other stimulant abuse, uncomplicated (principal); F17.200 Nicotine dependence, unspecified, uncomplicated
CPT/HCPCS: 99284

== ENCOUNTER 2020-11-24 09:46 | Emergency (ER) | payer MEDICARE, OTHER ==
[~2020-11-24] VITALS: Ht 162.6 cm; Wt 54.0 kg
--- OUTSIDE RECORDS SUMMARY | 2020-11-24 09:52 | XMS ---
PreManage Notification: VALENTINO SORTO Security Vice President Compliance Events 2 event(s) in the past 18 months Most recent security events: Elopement at [facility] 07/25/2020 15:59 - Other Details: PATIENT LWBS. Elopement at [facility] 07/15/2020 12:59 - Other Details: PATIENT LWBS. CRITERIA MET - Group Notification - 6 ED Visits in 6 Months - [facility] - 2 Visits in 30 Days CARE PROVIDERS HARI [facility] 01/24/2020-Current PHONE: [phone] [place] has no Care Guidelines for this patient. Care History Medical/Surgical 11/14/2020 [facility] - PATIENT HAS DECLINED TREATMENT HELP/PLACEMENT DUE TO LOCATION IN [place] - PATIENT HAS A TRIAL MGR-[facility] - HARD TO FIND PLACEMENT/HELP FOR PATIENT IN THE AREA DUE TO PATIENT PAST - IF PATIENT IS WILLING TO ACCEPT HELP WITH TREATMENT PLEASE CONTACT KATHLEEN. 09/18/2020 [facility] REFERRAL MADE- DUE TO PATIENT ED VISIT HISTORY AND NOT CALLING CHW BACK- PATIENT WOULD BENEFIT FROM [place] A\\T\\amp;D SERVICES AND MEDICAL CASE MANAGEMENT FOLLOW UP FROM [facility] CASE MANAGEMENT. 09/17/2020 [facility] - PATIENT FAMILY MEMBER CALLED AND PROVIDED CHW WITH PATIENT NEW CONTACT NUMBER [phone]. E.D. VISIT COUNT (12 MO.) [address] [facility] TOTAL 16 NOTE: Visits indicate total known visits. ED/UCC VISIT TRACKING (12 MO.) 11/24/2020 09:47 L[facility] [place] TYPE: Emergency COMPLAINT: - HIT HEAD 11/13/2020 20:21 [facility] [place] TYPE: Emergency COMPLAINT: - NOT FEELING WELL DIAGNOSES: - Nicotine dependence, unspecified, uncomplicated - Restlessness and agitation - Other stimulant abuse, uncomplicated 10/27/2020 16:08 [facility] [place] TYPE: Emergency COMPLAINT: - MEDICAL CLEARANCE DIAGNOSES: - Altered mental status, unspecified - Other stimulant abuse with stimulant-induced psychotic disorder, unspecified - Unspecified psychosis not due to a substance or known physiological condition - Other stimulant abuse, uncomplicated - Personal history of nicotine dependence 09/20/2020 11:21 [facility] [place] TYPE: Emergency [...] seen by health care provider 07/12/2020 10:[address] [facility] [address] [facility] [place] TYPE: Emergency COMPLAINT: - LEFT ARM/HAND SWELLING NON INJURY DIAGNOSES: - Personal history of nicotine dependence - Cellulitis of left upper limb - Pain in left upper arm 07/08/2020 08:[address] [facility] [address] [facility] [place] TYPE: Emergency COMPLAINT: - HAND SWELLING DIAGNOSES: - Other specified soft tissue disorders - Personal history of nicotine dependence 06/16/2020 12:[address] [facility] [address] [facility] [place] TYPE: Emergency COMPLAINT: - L HAND SWELLING DIAGNOSES: - Other specified soft tissue disorders - Periapical abscess without sinus - Jaw pain - Nicotine dependence, unspecified, uncomplicated 05/24/2020 06:[address] [facility] [place] TYPE: Emergency COMPLAINT: - SUICIDAL DIAGNOSES: [...] unspecified 04/01/2020 02:[address] [facility] [place] TYPE: Emergency COMPLAINT: - "SPIDERS IN MY BODY" DIAGNOSES: - Anesthesia of skin - Anesthesia of skin 01/23/2020 08:[address] [facility] [place] TYPE: Emergency COMPLAINT: - ANKLE PAIN, POSSIBLE INFECTION DIAGNOSES: - Nicotine dependence, unspecified, uncomplicated - Pain in left foot - Gout, unspecified INPATIENT VISIT TRACKING (12 MO.) No inpatient visits to display in this time frame [email or web address]
--- NOTE | 2020-11-24 15:21 | EKG ---
[facility] [address] [place] [address] Signed Sinus rhythm with premature atrial complexes Minimal voltage criteria for LVH, may be normal variant T wave abnormality, consider inferior ischemia Prolonged QT Abnormal ECG When compared with ECG of 15-JUL-2020 22:32, premature atrial complexes are now present Confirmed by SHELIA MCFADDEN MD ([id number]) on 11/24/2020 3:20:46 PM Electronically Signed By: SHELIA MCFADDEN MD 11/24/20 1521 PATIENT NAME: NOREENVALENTINO LYDIA Electrocardiogram DATE OF : 68 PHYSICIAN: SHELIA MCFADDEN MD REPORT #: [id number] REPORT IS CONFIDENTIAL AND NOT TO BE RELEASED WITHOUT AUTHORIZATION
== END 2020-11-24 12:56 | disposition home or self-care (01) ==
LOC: ED 09:46
DX: R55 Syncope and collapse (principal); S00.01XA Abrasion of scalp, initial encounter; F15.90 Other stimulant use, unspecified, uncomplicated; W18.30XA Fall on same level, unspecified, initial encounter; F17.200 Nicotine dependence, unspecified, uncomplicated; Z20.822 Contact with and (suspected) exposure to COVID-19
CPT/HCPCS: 70450; 71046; 80053; 81001; 84484; 85025; 93005; 93010; 99284-25; C9803; U0003

== ENCOUNTER 2020-12-15 01:34 | Emergency (ER) | payer MEDICARE ==
[~2020-12-15] VITALS: Ht 162.6 cm; Wt 54.0 kg
--- OUTSIDE RECORDS SUMMARY | 2020-12-15 01:36 | XMS ---
PreManage Notification: VALENTINO SORTO Security Air Traffic Instructor Events 2 event(s) in the past 18 months Most recent security events: Elopement at [facility] 07/25/2020 15:59 - Other Details: PATIENT LWBS. Elopement at [facility] 07/15/2020 12:59 - Other Details: PATIENT LWBS. CRITERIA MET - Group Notification - 6 ED Visits in 6 Months - [facility] - 2 Visits in 30 Days CARE PROVIDERS HARI [facility] 01/24/2020-Current PHONE: [phone] [place] has no Care Guidelines for this patient. Care History Medical/Surgical 11/27/2020 [facility] - KATHLEEN HELPED PATIENT WITH TREATMENT PLACEMENT AT [facility] - PATIENT WAS AT TREATMENT FACILITY AND LEFT AMA BY FOOT - PATIENT IS BACK IN THE AREA AND KATHLEEN HAS NO WAY OF CONTACTING PATIENT - IF PATIENT IS SEEN IN THE ED AGAIN-PLEASE ASK IF PATIENT WOULD BE OKAY WITH KATHLEEN BEING CONTACTED. 11/14/2020 [facility] - PATIENT HAS DECLINED TREATMENT HELP/PLACEMENT DUE TO LOCATION IN [place] - PATIENT HAS A BIT SHAVER-TRAVIS - HARD TO FIND PLACEMENT/HELP FOR PATIENT IN THE AREA DUE TO PATIENT PAST - IF PATIENT IS WILLING TO ACCEPT HELP WITH TREATMENT PLEASE CONTACT KATHLEEN. 09/18/2020 [facility] REFERRAL MADE- DUE TO PATIENT ED VISIT HISTORY AND NOT CALLING CHW BACK- PATIENT WOULD BENEFIT FROM [place] A\\T\\amp;D SERVICES AND MEDICAL CASE MANAGEMENT FOLLOW UP FROM [facility] CASE MANAGEMENT. [place]le VISIT COUNT (12 MO.) 17 LASHAY Delgado TOTAL 17 NOTE: Visits indicate total known visits. ED/UCC VISIT TRACKING (12 MO.) 12/15/2020 01:34 LASHAY Shook [place] TYPE: Emergency COMPLAINT: - DIFFICULTY BREATHING/DIFFICULTY STANDING 11/24/2020 09:47 LASHAY Shook [place] TYPE: Emergency COMPLAINT: - HIT HEAD DIAGNOSES: - Nicotine dependence, unspecified, uncomplicated - Fall on same level, unspecified, initial encounter - Other stimulant use, unspecified, uncomplicated - Syncope and collapse - Abrasion of scalp, initial encounter 11/13/2020 20:21 LASHAY [place] TYPE: Emergency COMPLAINT: - NOT FEELING WELL DIAGNOSES: - Nicotine dependence, unspecified, uncomplicated - Restlessness and agitation - Other stimulant abuse, uncomplicated 10/27/2020 16:08 LASHAY [place] Jeremías Ar[place] TYPE: Emergency COMPLAINT: - MEDICAL CLEARANCE [...] - Nicotine dependence, unspecified, uncomplicated 09/17/2020 11:40 [facility] [address] [place] TYPE: Emergency COMPLAINT: - SKIN PROBLEM [...] in walking, not elsewhere classified 07/25/2020 15:59 [facility] [address] [facility] [place] [place] TYPE: Emergency COMPLAINT: - COUGH DIAGNOSES: [...] visits to display in this time frame [id number]
[2020-12-15] MEDS ORDERED: MECLIZINE HCL25 MG PO (02:28)
== END 2020-12-15 02:40 | disposition home or self-care (01) ==
LOC: ED 01:34
DX: R42 Dizziness and giddiness (principal); F17.200 Nicotine dependence, unspecified, uncomplicated
CPT/HCPCS: 80053; 81001; 85025; 99284

== ENCOUNTER 2021-02-08 03:22 | Emergency (ER) | payer MEDICARE, OTHER ==
[~2021-02-08] VITALS: Ht 162.6 cm; Wt 53.5 kg
[~2021-02-08 03:22] MED LIST changes: +MECLIZINE HCL25 MG PO
--- OUTSIDE RECORDS SUMMARY | 2021-02-08 03:28 | XMS ---
PreManage Notification: VALENTINO SORTO Security Special Procedures Tech Events 2 event(s) in the past 18 months Most recent security events: Elopement at [facility] 07/25/2020 15:59 - Other Details: PATIENT LWBS. Elopement at [facility] 07/15/2020 12:59 - Other Details: PATIENT LWBS. CRITERIA MET - Group Notification - 6 ED Visits in 6 Months CARE PROVIDERS HARI [facility] 01/24/2020-Current PHONE: [phone] [place] has no Care Guidelines for this patient. Care History Medical/Surgical 11/27/2020 [facility] - KATHLEEN HELPED PATIENT WITH TREATMENT PLACEMENT AT [facility] - PATIENT WAS AT TREATMENT FACILITY AND LEFT AMA BY FOOT - PATIENT IS BACK IN THE AREA AND KATHLEEN HAS NO WAY OF CONTACTING PATIENT - IF PATIENT IS SEEN IN THE ED AGAIN-PLEASE ASK IF PATIENT WOULD BE OKAY WITH KATHLEEN BEING CONTACTED. 11/14/2020 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 09/18/2020 [facility] REFERRAL MADE- DUE TO PATIENT ED VISIT HISTORY AND NOT CALLING CHW BACK- PATIENT WOULD BENEFIT FROM [place] A\\T\\amp;D SERVICES AND MEDICAL CASE MANAGEMENT FOLLOW UP FROM [facility] MANAGEMENT. Shabazz VISIT COUNT (12 MO.) 17 LASHAY Delgado TOTAL 17 NOTE: Visits indicate total known visits. ED/UCC VISIT TRACKING (12 MO.) 02/08/2021 03:22 LASHAY [place]ook [place] TYPE: Emergency COMPLAINT: - SKIN PROBLEM 12/15/2020 01:34 LASHAY [place] TYPE: Emergency COMPLAINT: - DIFFICULTY BREATHING/DIFFICULTY STANDING DIAGNOSES: - Dizziness and giddiness - Nicotine dependence, unspecified, uncomplicated 11/24/2020 09:47 LASHAY Bolanosony Jeremías Arora [place] TYPE: Emergency COMPLAINT: - HIT HEAD DIAGNOSES: - Nicotine dependence, unspecified, uncomplicated - Fall on same level, unspecified, initial encounter - Other stimulant use, unspecified, uncomplicated - Syncope and collapse - Abrasion of scalp, initial encounter 11/13/2020 20:21 LASHAY Bolanosony Jeremías Ar[place] TYPE: Emergency COMPLAINT: - NOT FEELING [...] Personal history of nicotine dependence 09/20/2020 11:[address] [facility] [address] [facility] [place] TYPE: Emergency COMPLAINT: - DIZZY, SKIN PROBLEM DIAGNOSES: - Delusional disorders - Nicotine dependence, unspecified, uncomplicated 09/17/2020 11:[address] [facility] [address] [facility] [place] TYPE: Emergency COMPLAINT: - SKIN PROBLEM DIAGNOSES: - Nicotine dependence, unspecified, uncomplicated - Other specified disorders of the skin and subcutaneous tissue 09/06/2020 01:[address] [facility] [address] [facility] [place] TYPE: Emergency COMPLAINT: - MULTIPLE COMPLAINTS [...] Anesthesia of skin - Anesthesia of skin INPATIENT VISIT TRACKING (12 MO.) No inpatient visits to display in this time frame [id number]
[2021-02-08] MEDS ORDERED: TRIAMCINOLONE A15 G3 TOP (04:05)
== END 2021-02-08 04:12 | disposition home or self-care (01) ==
LOC: ED 03:22
DX: L30.9 Dermatitis, unspecified (principal); F17.200 Nicotine dependence, unspecified, uncomplicated
CPT/HCPCS: 80053; 85025; 85610; 99283

== ENCOUNTER 2021-04-03 15:02 | Emergency (ER) | payer MEDICARE, OTHER ==
[~2021-04-03] VITALS: Ht 162.6 cm; Wt 53.5 kg
[~2021-04-03 15:02] MED LIST changes: +TRIAMCINOLONE A15 G3 TOP
--- OUTSIDE RECORDS SUMMARY | 2021-04-03 15:10 | XMS ---
PreManage Notification: VALENTINO SORTO Security Documentation Specialist Events 2 event(s) in the past 18 months Most recent security events: Elopement at [facility] 07/25/2020 15:59 - Other Details: PATIENT LWBS. Elopement at [facility] 07/15/2020 12:59 - Other Details: PATIENT LWBS. CRITERIA MET - 6 ED Visits in 6 Months - Group Notification CARE PROVIDERS HARI [facility] 01/24/2020-Current PHONE: [phone] [place] has no Care Guidelines for this patient. Care History Medical/Surgical 11/27/2020 [facility] - KATHLEEN HELPED PATIENT WITH TREATMENT PLACEMENT AT [facility] - PATIENT WAS AT TREATMENT FACILITY AND LEFT AMA BY FOOT - PATIENT IS BACK IN THE AREA AND KATHLEEN HAS NO WAY OF CONTACTING PATIENT - IF PATIENT IS SEEN IN THE ED AGAIN-PLEASE ASK IF PATIENT WOULD BE OKAY WITH KATHLEEN BEING CONTACTED. 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 09/18/2020 [facility] REFERRAL MADE- DUE TO PATIENT ED VISIT HISTORY AND NOT CALLING CHW BACK- PATIENT WOULD BENEFIT FROM [place] A\T\amp;D SERVICES AND MEDICAL CASE MANAGEMENT FOLLOW UP FROM [facility] MANAGEMENT. Shabazz VISIT COUNT (12 MO.) 17 LASHAY Delgado TOTAL 17 NOTE: Visits indicate total known visits. ED/UCC VISIT TRACKING (12 MO.) 04/03/2021 15:02 LASHAY Shook [place] TYPE: Emergency COMPLAINT: - VOMITING 02/08/2021 03:22 LASHAY [employer] [facility]roy Arora [place] TYPE: Emergency COMPLAINT: - SKIN PROBLEM DIAGNOSES: - Nicotine dependence, unspecified, uncomplicated - Dermatitis, unspecified - Pain in right hand 12/15/2020 01:34 [facility] [facility] [place] [place] TYPE: Emergency COMPLAINT: - DIFFICULTY BREATHING/DIFFICULTY STANDING DIAGNOSES: - Dizziness and giddiness - Nicotine dependence, unspecified, uncomplicated 11/24/2020 09:47 [facility] [employer] Jeremías Arora [place] TYPE: Emergency COMPLAINT: - HIT HEAD DIAGNOSES: - Nicotine dependence, unspecified, uncomplicated - Fall on same level, unspecified, initial encounter - Other stimulant use, unspecified, uncomplicated - Syncope and collapse - Abrasion of scalp, initial encounter 11/13/2020 20:21 LASHAY [place] Ar[place] TYPE: Emergency COMPLAINT: - NOT [...] skin and subcutaneous tissue 09/06/2020 01:25 [place]AY [place] TYPE: Emergency COMPLAINT: - MULTIPLE COMPLAINTS DIAGNOSES: - Nicotine dependence, unspecified, uncomplicated - Anorexia - Restlessness and agitation - Dizziness and giddiness - Nausea - Other stimulant abuse, uncomplicated - Marfan's syndrome, unspecified - Difficulty in walking, not elsewhere classified 07/25/2020 [facility] COMPLAINT: - COUGH DIAGNOSES: - Cough 07/15/2020 21[facility] COMPLAINT: - INJURED EYE DIAGNOSES: - Exposure to other specified factors, initial encounter - Cannabis abuse, uncomplicated - Other specified soft tissue disorders - Acute kidney failure, unspecified - Injury of conjunctiva and corneal abrasion without foreign body, left eye, initial encounter - Other stimulant abuse, uncomplicated - Nicotine dependence, unspecified, uncomplicated 07/15/2020 12[facility]59 [facility] [place] [facility] COMPLAINT: - EYE PAIN [...] - Constipation, unspecified - Anal fissure, unspecified INPATIENT VISIT TRACKING (12 MO.) No inpatient visits to display in this time frame [id number]
[2021-04-03] MEDS ORDERED: ZOFRAN4 MG PO (17:06)
== END 2021-04-03 17:27 | disposition home or self-care (01) ==
LOC: ED 15:02
DX: K52.9 Noninfective gastroenteritis and colitis, unspecified (principal); E86.0 Dehydration; Z20.822 Contact with and (suspected) exposure to COVID-19; F17.200 Nicotine dependence, unspecified, uncomplicated
CPT/HCPCS: 71045; 80053; 81001; 83690; 85025; 96374; 99284-25; C9803; J2405; J7030; U0003

== ENCOUNTER 2021-05-04 04:11 | Emergency (ER) | payer MEDICARE, OTHER ==
[~2021-05-04] VITALS: Ht 162.6 cm; Wt 50.9 kg
[~2021-05-04 04:11] MED LIST changes: +ZOFRAN4 MG PO
--- OUTSIDE RECORDS SUMMARY | 2021-05-04 04:18 | XMS ---
PreManage Notification: VALENTINO SORTO Security Director Of Recruitment And Admissions Events 2 event(s) in the past 18 months Most recent security events: Elopement at [facility] 07/25/2020 15:59 - Other Details: PATIENT LWBS. Elopement at [facility] 07/15/2020 12:59 - Other Details: PATIENT LWBS. CRITERIA MET - 6 ED Visits in 6 Months - Group Notification CARE PROVIDERS HARI [facility] 01/24/2020-Current PHONE: [phone] [place] has no Care Guidelines for this patient. Care History Medical/Surgical 11/27/2020 [facility] - KATHLEEN HELPED PATIENT WITH TREATMENT PLACEMENT AT [facility] - PATIENT WAS AT TREATMENT FACILITY AND LEFT AMA BY FOOT - PATIENT IS BACK IN THE AREA AND KATHLEEN HAS NO WAY OF CONTACTING PATIENT - IF PATIENT IS SEEN IN THE ED AGAIN-PLEASE ASK IF PATIENT WOULD BE OKAY WITH KATHLEEN BEING CONTACTED. 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 09/18/2020 [facility] REFERRAL MADE- DUE TO PATIENT ED VISIT HISTORY AND NOT CALLING CHW BACK- PATIENT WOULD BENEFIT FROM [place] A\T\amp;D SERVICES AND MEDICAL CASE MANAGEMENT FOLLOW UP FROM [facility] MANAGEMENT. Shabazz VISIT COUNT (12 MO.) 18 LASHAY Delgado TOTAL 18 NOTE: Visits indicate total known visits. ED/UCC VISIT TRACKING (12 MO.) 2021 04:12 LASHAY Shook [place] TYPE: Emergency COMPLAINT: - HAND PAIN 04/03/2021 15:02 [facility] [address] [facility] [place] TYPE: Emergency COMPLAINT: - VOMITING DIAGNOSES: - Nicotine dependence, unspecified, uncomplicated - Noninfective gastroenteritis and colitis, unspecified - Vomiting, unspecified - Dehydration 02/08/2021 03:22 LASHAY [place] HTroy Arora [place] TYPE: Emergency COMPLAINT: - SKIN PROBLEM DIAGNOSES: - Nicotine dependence, unspecified, uncomplicated - Dermatitis, unspecified - Pain in right hand 12/15/2020 01:34 [facility] [address] [facility] [place] Ar[place] TYPE: Emergency COMPLAINT: - DIFFICULTY BREATHING/DIFFICULTY STANDING DIAGNOSES: - Dizziness and giddiness - Nicotine dependence, unspecified, uncomplicated 11/24/2020 09:[address] [facility] [address] [facility] [place] TYPE: Emergency COMPLAINT: - HIT HEAD DIAGNOSES: - Nicotine dependence, unspecified, uncomplicated - Fall on same level, unspecified, initial encounter - Other stimulant use, unspecified, uncomplicated - Syncope and collapse - Abrasion of scalp, initial encounter 11/13/2020 20:21 [facility] [place] HTroy Arora [place] TYPE: Emergency COMPLAINT: - NOT FEELING WELL DIAGNOSES: - Nicotine dependence, unspecified, uncomplicated - Restlessness and agitation - Other stimulant abuse, uncomplicated 10/27/2020 16:08 [facility] [place] HTroy Arora [place] TYPE: Emergency COMPLAINT: - MEDICAL CLEARANCE DIAGNOSES: - Altered mental status, unspecified - Other stimulant abuse with stimulant-induced psychotic disorder, unspecified - Unspecified psychosis not due to a substance or known physiological condition - Other stimulant abuse, uncomplicated - Personal history of nicotine dependence 09/20/2020 11:21 [facility] [place] Jeremías Arora [place] TYPE: Emergency COMPLAINT: - DIZZY, SKIN PROBLEM DIAGNOSES: - Delusional disorders - Nicotine dependence, unspecified, uncomplicated 09/17/2020 11:40 [facility] [place] HTroy Arora [place] TYPE: Emergency COMPLAINT: - SKIN PROBLEM DIAGNOSES: - Nicotine dependence, unspecified, uncomplicated - Other specified disorders of the skin and subcutaneous tissue 09/06/2020 01:25 [facility] [place] HTroy Arora [place] TYPE: Emergency COMPLAINT: - MULTIPLE COMPLAINTS DIAGNOSES: - Nicotine dependence, unspecified, uncomplicated - Anorexia - Restlessness and agitation - Dizziness and giddiness - Nausea - Other stimulant abuse, uncomplicated - Marfan's syndrome, unspecified - Difficulty in walking, not elsewhere classified 07/25/2020 15:[address] [facility] [address] [place] Ar[place] TYPE: Emergency COMPLAINT: - COUGH DIAGNOSES: - Cough 07/15/2020 21:[address] [facility] [address] [place] Ar[place] TYPE: Emergency COMPLAINT: - INJURED [...] visits to display in this time frame [id number]
== END 2021-05-04 05:05 | disposition home or self-care (01) ==
LOC: ED 04:11
DX: M79.642 Pain in left hand (principal); M79.641 Pain in right hand; F17.200 Nicotine dependence, unspecified, uncomplicated
CPT/HCPCS: 99283

== ENCOUNTER 2021-05-11 07:53 | Emergency (ER) | payer MEDICARE, OTHER ==
[~2021-05-11] VITALS: Ht 162.6 cm; Wt 50.8 kg
--- OUTSIDE RECORDS SUMMARY | 2021-05-11 08:02 | XMS ---
PreManage Notification: VALENTINO SORTO Security Community Services Manager Events 2 event(s) in the past 18 months Most recent security events: Elopement at [facility] 07/25/2020 15:59 - Other Details: PATIENT LWBS. Elopement at [facility] 07/15/2020 12:59 - Other Details: PATIENT LWBS. CRITERIA MET - [facility] - 2 Visits in 30 Days - Group Notification - 6 ED Visits in 6 Months CARE PROVIDERS HARI [facility] 01/24/2020-Current PHONE: [phone] [place] has no Care Guidelines for this patient. Care History Medical/Surgical 11/27/2020 [facility] - KATHLEEN HELPED PATIENT WITH TREATMENT PLACEMENT AT [facility] - PATIENT WAS AT TREATMENT FACILITY AND LEFT AMA BY FOOT - PATIENT IS BACK IN THE AREA AND KATHLEEN HAS NO WAY OF CONTACTING PATIENT - IF PATIENT IS SEEN IN THE ED AGAIN-PLEASE ASK IF PATIENT WOULD BE OKAY WITH KATHLEEN BEING CONTACTED. 11/14/2020 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 09/18/2020 [facility] REFERRAL MADE- DUE TO PATIENT ED VISIT HISTORY AND NOT CALLING CHW BACK- PATIENT WOULD BENEFIT FROM [place] A\T\amp;D SERVICES AND MEDICAL CASE MANAGEMENT FOLLOW UP FROM [facility] CASE MANAGEMENT. Mele VISIT COUNT (12 MO.) 18 LASHAY Delgado TOTAL 18 NOTE: Visits indicate total known visits. ED/UCC VISIT TRACKING (12 MO.) 05/11/2021 07:55 LASHAY [place]ook [place] TYPE: Emergency COMPLAINT: - COUGH,SOB, TIRED 2021 04:12 LASHAY [place] HTroy Liangon [place] TYPE: Emergency COMPLAINT: - HAND PAIN DIAGNOSES: - Nicotine dependence, unspecified, uncomplicated - Pain in right hand - Pain in left hand 04/03/2021 15:02 [facility] [place] TYPE: Emergency COMPLAINT: - VOMITING DIAGNOSES: - Nicotine dependence, unspecified, uncomplicated - Noninfective gastroenteritis and colitis, unspecified - Vomiting, unspecified - Dehydration 02/08/2021 03:22 [facility] [place] TYPE: Emergency COMPLAINT: - SKIN PROBLEM DIAGNOSES: - Nicotine dependence, unspecified, uncomplicated - Dermatitis, unspecified - Pain in right hand 12/15/2020 01:[address] [facility] [place] TYPE: Emergency COMPLAINT: - DIFFICULTY BREATHING/DIFFICULTY STANDING DIAGNOSES: - Dizziness and giddiness - Nicotine dependence, unspecified, uncomplicated 11/24/2020 09:47 LASHAY Shook [place] TYPE: Emergency [...] Personal history of nicotine dependence 09/20/2020 11:21 [facility] [place] Jeremías Arora [place] TYPE: Emergency COMPLAINT: - DIZZY, SKIN PROBLEM DIAGNOSES: - Delusional disorders - Nicotine dependence, unspecified, uncomplicated 09/17/2020 11:40 [facility] [place] TYPE: Emergency COMPLAINT: - SKIN PROBLEM DIAGNOSES: - Nicotine dependence, unspecified, uncomplicated - Other specified disorders of the skin and subcutaneous tissue 09/06/2020 01:25 [facility] [place]roy Arora [place] TYPE: Emergency COMPLAINT: - MULTIPLE COMPLAINTS DIAGNOSES: - Nicotine dependence, unspecified, uncomplicated - Anorexia - Restlessness and agitation - Dizziness and giddiness - Nausea - Other stimulant abuse, uncomplicated - Marfan's syndrome, unspecified - Difficulty in walking, not elsewhere classified 07/25/2020 15:59 [facility] [place] TYPE: Emergency [...] skin eruption - Nicotine dependence, unspecified, uncomplicated INPATIENT VISIT TRACKING (12 MO.) No inpatient visits to display in this time frame [id number]
== END 2021-05-11 10:35 | disposition home or self-care (01) ==
LOC: ED 07:53
DX: J40 Bronchitis, not specified as acute or chronic (principal); F17.200 Nicotine dependence, unspecified, uncomplicated; Z20.822 Contact with and (suspected) exposure to COVID-19
CPT/HCPCS: 71045; 99283-25; U0003

== ENCOUNTER 2021-05-18 08:40 | Emergency (ER) | payer MEDICARE, OTHER ==
[~2021-05-18] VITALS: Ht 162.6 cm; Wt 53.6 kg
--- OUTSIDE RECORDS SUMMARY | 2021-05-18 08:48 | XMS ---
PreManage Notification: VALENTINO SORTO Security Desktop Technician Events 2 event(s) in the past 18 months Most recent security events: Elopement at [facility] 07/25/2020 15:59 - Other Details: PATIENT LWBS. Elopement at [facility] 07/15/2020 12:59 - Other Details: PATIENT LWBS. CRITERIA MET - 6 ED Visits in 6 Months - [facility] - 2 Visits in 30 Days - Group Notification CARE PROVIDERS HARI [facility] 01/24/2020-Current PHONE: [phone] [place] has no Care Guidelines for this patient. Care History Medical/Surgical 11/27/2020 [facility] - KATHLEEN HELPED PATIENT WITH TREATMENT PLACEMENT AT [facility] - PATIENT WAS AT TREATMENT FACILITY AND LEFT AMA BY FOOT - PATIENT IS BACK IN THE AREA AND KATHLEEN HAS NO WAY OF CONTACTING PATIENT - IF PATIENT IS SEEN IN THE ED AGAIN-PLEASE ASK IF PATIENT WOULD BE OKAY WITH KATHLEEN BEING CONTACTED. 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 09/18/2020 [facility] REFERRAL MADE- DUE TO PATIENT ED VISIT HISTORY AND NOT CALLING CHW BACK- PATIENT WOULD BENEFIT FROM [place] A\T\amp;D SERVICES AND MEDICAL CASE MANAGEMENT [facility]LLOW [facility] FROM [facility] MANAGEMENTTroy Shabazz VISIT COUNT (12 MO.) 19 LASHAY Delgado TOTAL 19 NOTE: Visits indicate total known visits. ED/UCC VISIT TRACKING (12 MO.) 05/18/2021 08:40 [facility]AY [place] TYPE: Emergency COMPLAINT: - DIZZY, CHILLS, BODY PAIN 05/11/2021 07:[address] [facility] [address] [facility] [place] TYPE: Emergency COMPLAINT: - COUGH,SOB, TIRED DIAGNOSES: - COUGH, UNSPECIFIED - Nicotine dependence, unspecified, uncomplicated - Bronchitis, not specified as acute or chronic 2021 04:12 [facility] [address] [facility] [place] TYPE: Emergency COMPLAINT: - HAND PAIN DIAGNOSES: - Nicotine dependence, unspecified, uncomplicated - Pain in right hand - Pain in left hand 04/03/2021 15:02 [facility] [address] [facility] [place] TYPE: Emergency COMPLAINT: - VOMITING DIAGNOSES: - Nicotine dependence, unspecified, uncomplicated - Noninfective gastroenteritis and colitis, unspecified - Vomiting, unspecified - Dehydration 02/08/2021 03:[address] [facility] [place] TYPE: Emergency COMPLAINT: - SKIN PROBLEM DIAGNOSES: - Nicotine dependence, unspecified, uncomplicated - Dermatitis, unspecified - Pain in right hand 12/15/2020 01:34 L[facility]AY [place] TYPE: Emergency [...] - Other stimulant abuse, uncomplicated 10/27/2020 16:08 [facility] [address] [facility] [place] [place] TYPE: Emergency COMPLAINT: - MEDICAL CLEARANCE DIAGNOSES: - Altered mental status, unspecified - Other stimulant abuse with stimulant-induced psychotic disorder, unspecified - Unspecified psychosis not due to a substance or known physiological condition - Other stimulant abuse, uncomplicated - Personal history of nicotine dependence 09/20/2020 11:21 [facility] [address] [place] TYPE: Emergency COMPLAINT: - DIZZY, SKIN PROBLEM DIAGNOSES: - Delusional disorders - Nicotine dependence, unspecified, uncomplicated 09/17/2020 11:40 [facility] [address] [place] TYPE: Emergency COMPLAINT: - SKIN PROBLEM DIAGNOSES: - Nicotine dependence, unspecified, uncomplicated - Other specified disorders of the skin and subcutaneous tissue 09/06/2020 01:25 [facility] [address] [facility] [place] TYPE: Emergency COMPLAINT: - MULTIPLE COMPLAINTS [...] history of nicotine dependence 06/16/2020 12:50 [facility] [address] [place] TYPE: Emergency COMPLAINT: [...] visits to display in this time frame [email or web address]
== END 2021-05-18 11:26 | disposition home or self-care (01) ==
LOC: ED 08:40
DX: B34.9 Viral infection, unspecified (principal); Z20.822 Contact with and (suspected) exposure to COVID-19; I10 Essential (primary) hypertension; F17.200 Nicotine dependence, unspecified, uncomplicated
CPT/HCPCS: 71045; 99283-25; U0003

== ENCOUNTER 2021-07-02 09:02 | Emergency (ER) | payer MEDICARE, OTHER ==
[~2021-07-02] VITALS: Ht 162.6 cm; Wt 58.1 kg
--- OUTSIDE RECORDS SUMMARY | 2021-07-02 09:10 | XMS ---
PreManage Notification: VALENTINO SORTO Security Table Top Tile Setter Events 2 event(s) in the past 18 months Most recent security events: Elopement at [facility] 07/25/2020 15:59 - Other Details: PATIENT LWBS. Elopement at [facility] 07/15/2020 12:59 - Other Details: PATIENT LWBS. CRITERIA MET - Group Notification - 6 ED Visits in 6 Months CARE PROVIDERS HARI [facility] 01/24/2020-Current PHONE: [phone] [place] has no Care Guidelines for this patient. Care History Medical/Surgical 11/27/2020 [facility] - KATHLEEN HELPED PATIENT WITH TREATMENT PLACEMENT AT [facility] - PATIENT WAS AT TREATMENT FACILITY AND LEFT AMA BY FOOT - PATIENT IS BACK IN THE AREA AND KATHLEEN HAS NO WAY OF CONTACTING PATIENT - IF PATIENT IS SEEN IN THE ED AGAIN-PLEASE ASK IF PATIENT WOULD BE OKAY WITH KATHLEEN BEING CONTACTED. 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 09/18/2020 [facility] REFERRAL MADE- DUE TO PATIENT ED VISIT HISTORY AND NOT CALLING CHW BACK- PATIENT WOULD BENEFIT FROM [place] A\T\amp;D SERVICES AND MEDICAL CASE MANAGEMENT FOLLOW UP FROM [facility] MANAGEMENT. Shabazz VISIT COUNT (12 MO.) 18 LASHAY Delgado TOTAL 18 NOTE: Visits indicate total known visits. ED/UCC VISIT TRACKING (12 MO.) 07/02/2021 09:03 [place] [place] TYPE: Emergency COMPLAINT: - COUGH, FEVER, SOB 05/18/2021 08:40 [facility] [place] TYPE: Emergency COMPLAINT: - DIZZY, CHILLS, BODY PAIN DIAGNOSES: - COUGH, UNSPECIFIED - Viral infection, unspecified - Nicotine dependence, unspecified, uncomplicated - Essential (primary) hypertension 05/11/2021 07:55 [facility] [place] TYPE: Emergency COMPLAINT: - COUGH,SOB, TIRED DIAGNOSES: - COUGH, UNSPECIFIED - Nicotine dependence, unspecified, uncomplicated - Bronchitis, not specified as acute or chronic 2021 04:12 [facility] [place] TYPE: Emergency COMPLAINT: - HAND PAIN DIAGNOSES: - Nicotine dependence, unspecified, uncomplicated - Pain in right hand - Pain in left hand 04/03/2021 15:02 [facility] [place] TYPE: Emergency COMPLAINT: - VOMITING DIAGNOSES: - Nicotine dependence, unspecified, uncomplicated - Noninfective gastroenteritis and colitis, unspecified - Vomiting, unspecified - Dehydration 02/08/2021 03:22 [facility] [place] TYPE: Emergency [...] Abrasion of scalp, initial encounter 11/13/2020 20:[address] [facility] [address] [facility] [place] TYPE: Emergency COMPLAINT: - NOT FEELING WELL DIAGNOSES: - Nicotine dependence, unspecified, uncomplicated - Restlessness and agitation - Other stimulant abuse, uncomplicated 10/27/2020 16:08 [facility] [place] TYPE: Emergency COMPLAINT: - MEDICAL CLEARANCE DIAGNOSES: - Altered mental status, unspecified - Other stimulant abuse with stimulant-induced psychotic disorder, unspecified - Unspecified psychosis not due to a substance or known physiological condition - Other stimulant abuse, uncomplicated - Personal history of nicotine dependence 09/20/2020 11:21 [facility] [place] TYPE: Emergency COMPLAINT: - DIZZY, SKIN PROBLEM DIAGNOSES: - Delusional disorders - Nicotine dependence, unspecified, uncomplicated 09/17/2020 11:40 [facility] [place] TYPE: Emergency [...] disorders - Personal history of nicotine dependence INPATIENT VISIT TRACKING (12 MO.) No inpatient visits to display in this time frame [id number]
[2021-07-02] MEDS ORDERED: LISINOPRIL10 MG PO (10:12)
== END 2021-07-02 10:43 | disposition home or self-care (01) ==
LOC: ED 09:02
DX: J20.9 Acute bronchitis, unspecified (principal); I10 Essential (primary) hypertension; F17.200 Nicotine dependence, unspecified, uncomplicated; Z20.822 Contact with and (suspected) exposure to COVID-19
CPT/HCPCS: 71045; 80053; 85025; 99285-25; C9803; U0003

== ENCOUNTER 2021-07-13 21:24 | Emergency (ER) | payer MEDICARE, OTHER ==
[~2021-07-13] VITALS: Ht 162.6 cm; Wt 54.4 kg
[~2021-07-13 21:24] MED LIST changes: +LISINOPRIL10 MG PO
--- OUTSIDE RECORDS SUMMARY | 2021-07-13 21:30 | XMS ---
PreManage Notification: VALENTINO SORTO Security Communications Senior Associate Events 2 event(s) in the past 18 months Most recent security events: Elopement at [facility] 07/25/2020 15:59 - Other Details: PATIENT LWBS. Elopement at [facility] 07/15/2020 12:59 - Other Details: PATIENT LWBS. CRITERIA MET - [facility] - 2 Visits in 30 Days - Group Notification - 6 ED Visits in 6 Months CARE PROVIDERS HARI [facility] 01/24/2020-Current PHONE: [phone] [place] has no Care Guidelines for this patient. Care History Medical/Surgical 11/27/2020 [facility] - KATHLEEN HELPED PATIENT WITH TREATMENT PLACEMENT AT [facility] - PATIENT WAS AT TREATMENT FACILITY AND LEFT AMA BY FOOT - PATIENT IS BACK IN THE AREA AND KATHLEEN HAS NO WAY OF CONTACTING PATIENT - IF PATIENT IS SEEN IN THE ED AGAIN-PLEASE ASK IF PATIENT WOULD BE OKAY WITH KATHLEEN BEING CONTACTED. 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 09/18/2020 [facility] REFERRAL MADE- DUE TO PATIENT ED VISIT HISTORY AND NOT CALLING CHW BACK- PATIENT WOULD BENEFIT FROM [place] A\T\amp;D SERVICES AND MEDICAL CASE MANAGEMENT FOLLOW UP FROM [facility] CASE MANAGEMENTTroy Shabazz VISIT COUNT (12 MO.) 17 LASHAY Delgado TOTAL 17 NOTE: Visits indicate total known visits. ED/UCC VISIT TRACKING (12 MO.) 07/13/2021 21:24 [facility] [place] TYPE: Emergency COMPLAINT: - ABDOM PAIN 07/02/2021 09:03 [place] [place] TYPE: Emergency COMPLAINT: - COUGH, FEVER, SOB DIAGNOSES: - Acute bronchitis, unspecified - Nicotine dependence, unspecified, uncomplicated - Dyspnea, unspecified - Essential (primary) hypertension 05/18/2021 08:40 [facility] [place] TYPE: Emergency COMPLAINT: - DIZZY, CHILLS, BODY PAIN DIAGNOSES: - COUGH, UNSPECIFIED - Viral infection, unspecified - Nicotine dependence, unspecified, uncomplicated - Essential (primary) hypertension 05/11/2021 07:55 [facility] [place] TYPE: Emergency COMPLAINT: - COUGH,SOB, TIRED DIAGNOSES: - COUGH, UNSPECIFIED - Nicotine dependence, unspecified, uncomplicated - Bronchitis, not specified as acute or chronic 2021 04:12 [facility] [place] TYPE: Emergency COMPLAINT: - HAND PAIN DIAGNOSES: - Nicotine dependence, unspecified, uncomplicated - Pain in right hand - Pain in left hand 04/03/2021 15:02 [facility] [place] TYPE: Emergency COMPLAINT: - VOMITING DIAGNOSES: [...] - Nicotine dependence, unspecified, uncomplicated 11/24/2020 09:[address] [facility] [address] [place] TYPE: Emergency COMPLAINT: - HIT HEAD DIAGNOSES: - Nicotine dependence, unspecified, uncomplicated - Fall on same level, unspecified, initial encounter - Other stimulant use, unspecified, uncomplicated - Syncope and collapse - Abrasion of scalp, initial encounter 11/13/2020 20:21 [facility] [place] TYPE: Emergency COMPLAINT: - NOT FEELING WELL DIAGNOSES: - Nicotine dependence, unspecified, uncomplicated - Restlessness and agitation - Other stimulant abuse, uncomplicated 10/27/2020 16:08 [facility] [place] TYPE: Emergency COMPLAINT: - MEDICAL CLEARANCE DIAGNOSES: - Altered mental status, unspecified - Other stimulant abuse with stimulant-induced psychotic disorder, unspecified - Unspecified psychosis not due to a substance or known physiological condition - Other stimulant abuse, uncomplicated - Personal history of nicotine dependence 09/20/2020 11:21 [facility] [place] TYPE: Emergency COMPLAINT: - DIZZY, [...] in walking, not elsewhere classified 07/25/2020 15:[address] [facility] [address] [place] TYPE: Emergency COMPLAINT: - COUGH DIAGNOSES: - Cough 07/15/2020 21:15 [facility] [address] [facility] [place] TYPE: Emergency COMPLAINT: - INJURED [...] to being seen by health care provider INPATIENT VISIT TRACKING (12 MO.) No inpatient visits to display in this time frame [id number]
--- NOTE | 2021-07-15 16:17 | EKG ---
[facility] [address] [place] [address] Signed Normal sinus rhythm Minimal voltage criteria for LVH, may be normal variant ( [employer] product ) T wave abnormality, consider inferior ischemia Abnormal ECG When compared with ECG of 24-NOV-2020 10:51, premature atrial complexes are no longer present Confirmed by SHELIA MCFADDEN MD ([id number]) on 07/15/2021 4:17:35 PM Electronically Signed By: SHELIA MCFADDEN MD 07/15/21 1617 PATIENT NAME: VALENTINO SORTO Electrocardiogram DATE OF : 68 PHYSICIAN: SHELIA MCFADDEN MD REPORT #: [id number] REPORT IS CONFIDENTIAL AND NOT TO BE RELEASED WITHOUT AUTHORIZATION
== END 2021-07-13 22:48 | disposition home or self-care (01) ==
LOC: ED 21:24
DX: R42 Dizziness and giddiness (principal); I10 Essential (primary) hypertension; F17.200 Nicotine dependence, unspecified, uncomplicated
CPT/HCPCS: 80053; 81001; 85025; 93005; 93010; 99284-25; G0480; J7030

== ENCOUNTER 2021-08-27 04:34 | Emergency (ER) | payer MEDICARE, OTHER ==
[~2021-08-27] VITALS: Ht 162.6 cm; Wt 54.4 kg
--- OUTSIDE RECORDS SUMMARY | 2021-08-27 04:42 | XMS ---
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 07/25/2020 15:59 - Other Details: PATIENT LWBS. Elopement at [facility] 07/15/2020 12:59 - Other Details: PATIENT LWBS. CRITERIA MET - 6 ED Visits in 6 Months - Group Notification CARE PROVIDERS HARI [facility] Current PHONE: [phone] [place] has no Care Guidelines for this patient. Care History Medical/Surgical 11/27/2020 [facility] - KATHLEEN HELPED PATIENT WITH TREATMENT PLACEMENT AT [facility] - PATIENT WAS AT TREATMENT FACILITY AND LEFT AMA BY FOOT - PATIENT IS BACK IN THE AREA AND KATHLEEN HAS NO WAY OF CONTACTING PATIENT - IF PATIENT IS SEEN IN THE ED AGAIN-PLEASE ASK IF PATIENT WOULD BE OKAY WITH KATHLEEN BEING CONTACTED. 11/14/2020 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 09/18/2020 [facility] REFERRAL MADE- DUE TO PATIENT ED VISIT HISTORY AND NOT CALLING CHW BACK- PATIENT WOULD BENEFIT FROM [place] A\T\amp;D SERVICES AND MEDICAL CASE MANA[facility]EMENT [facility]. Shabazz VISIT COUNT (12 MO.) 15 LASHAY Delgado TOTAL 15 NOTE: Visits indicate total known visits. ED/UCC VISIT TRACKING (12 MO.) 08/27/2021 04:34 LASH[facility] [place] TYPE: Emergency COMPLAINT: - HYPOTHERMIC 07/13/2021 21:24 [facility] [address] [facility] [place] TYPE: Emergency COMPLAINT: - ABDOM PAIN DIAGNOSES: - Essential (primary) hypertension - Nicotine dependence, unspecified, uncomplicated - Dizziness and giddiness 07/02/2021 09:03 [facility] [address] [facility] [place] TYPE: Emergency COMPLAINT: - COUGH, FEVER, SOB DIAGNOSES: - Acute bronchitis, unspecified - Nicotine dependence, unspecified, uncomplicated - Dyspnea, unspecified - Essential (primary) hypertension 05/18/2021 08:40 [facility] [facility] [place] TYPE: Emergency COMPLAINT: - DIZZY, CHILLS, BODY PAIN DIAGNOSES: - COUGH, UNSPECIFIED - Viral infection, unspecified - Nicotine dependence, unspecified, uncomplicated - Essential (primary) hypertension 05/11/2021 07:55 [facility] [address] [facility] [place] TYPE: Emergency COMPLAINT: - COUGH,SOB, TIRED DIAGNOSES: - COUGH, UNSPECIFIED - Nicotine dependence, unspecified, uncomplicated - Bronchitis, not specified as acute or chronic 2021 04:12 [facility] [place] TYPE: Emergency [...] history of nicotine dependence 09/20/2020 11:[address] [place] TYPE: Emergency COMPLAINT: - DIZZY, SKIN PROBLEM DIAGNOSES: - Delusional disorders - Nicotine dependence, unspecified, uncomplicated 09/17/2020 11:40 [facility] [employer] [place] TYPE: Emergency COMPLAINT: - SKIN PROBLEM DIAGNOSES: - Nicotine dependence, unspecified, uncomplicated - Other specified disorders of the skin and subcutaneous tissue 09/06/2020 01:[address] [place] TYPE: Emergency COMPLAINT: - MULTIPLE COMPLAINTS DIAGNOSES: - Nicotine dependence, unspecified, uncomplicated - Anorexia - Restlessness and agitation - Dizziness and giddiness - Nausea - Other stimulant abuse, uncomplicated - Marfan's syndrome, unspecified - Difficulty in walking, not elsewhere classified INPATIENT VISIT TRACKING (12 MO.) No inpatient visits to display in this time frame [id number]
[2021-08-27] MEDS ORDERED: PERIDEX473 M1 MM (04:57)
[2021-08-27] MEDS ORDERED: ZYPREXA5 MG PO (04:58)
== END 2021-08-27 05:50 | disposition home or self-care (01) ==
LOC: ED 04:34
DX: F25.9 Schizoaffective disorder, unspecified (principal); F15.10 Other stimulant abuse, uncomplicated; K12.1 Other forms of stomatitis; I10 Essential (primary) hypertension; F17.200 Nicotine dependence, unspecified, uncomplicated
CPT/HCPCS: 99283

== ENCOUNTER 2021-09-01 16:15 | Emergency (ER) | payer MEDICARE, OTHER ==
[~2021-09-01] VITALS: Ht 162.6 cm; Wt 54.4 kg
[~2021-09-01 16:15] MED LIST changes: +PERIDEX473 M1 MM; +ZYPREXA5 MG PO
--- OUTSIDE RECORDS SUMMARY | 2021-09-01 17:16 | XMS ---
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 Elopement at [facility] 07/15/2020 12:59 - Other Details: PATIENT LWBS. CRITERIA MET - 6 ED Visits in 6 Months - Group Notification - [facility] - 2 Visits in 30 Days CARE PROVIDERS HARI [facility] Current PHONE: [phone] [place] has no Care Guidelines for this patient. Care History Medical/Surgical 11/27/2020 [facility] - KATHLEEN HELPED PATIENT WITH TREATMENT PLACEMENT AT [facility] - PATIENT WAS AT TREATMENT FACILITY AND LEFT AMA BY FOOT - PATIENT IS BACK IN THE AREA AND KATHLEEN HAS NO WAY OF CONTACTING PATIENT - IF PATIENT IS SEEN IN THE ED AGAIN-PLEASE ASK IF PATIENT WOULD BE OKAY WITH KATHLEEN BEING CONTACTED. 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 09/18/2020 [facility] REFERRAL MADE- DUE TO PATIENT ED VISIT HISTORY AND NOT CALLING CHW BACK- PATIENT WOULD BENEFIT FROM [place] A\T\amp;D SERVICES AND MEDICAL CASE MANAGEMENT FOLLOW UP FROM [facility] CASE MANAGEMENT. Shabazz VISIT COUNT (12 MO.) 16 LASHAY Delgado TOTAL 16 NOTE: Visits indicate total known visits. ED/UCC VISIT TRACKING (12 MO.) 09/01/2021 16:16 [facility] [place] TYPE: Emergency COMPLAINT: - PAIN 08/27/2021 04:34 [facility] [place] TYPE: Emergency COMPLAINT: - HYPOTHERMIC DIAGNOSES: - Other stimulant abuse, uncomplicated - Essential (primary) hypertension - Other forms of stomatitis - Nicotine dependence, unspecified, uncomplicated - Schizoaffective disorder, unspecified 07/13/2021 21:24 [facility] [address] [facility] [place] TYPE: Emergency COMPLAINT: - ABDOM PAIN DIAGNOSES: - Essential (primary) hypertension - Nicotine dependence, unspecified, uncomplicated - Dizziness and giddiness 07/02/2021 09:03 [facility] [address] [facility] [place] TYPE: Emergency COMPLAINT: - COUGH, FEVER, SOB DIAGNOSES: - Acute bronchitis, unspecified - Nicotine dependence, unspecified, uncomplicated - Dyspnea, unspecified - Essential (primary) hypertension 05/18/2021 08:40 [facility] [facility] [place] TYPE: Emergency COMPLAINT: - DIZZY, CHILLS, BODY PAIN DIAGNOSES: - COUGH, UNSPECIFIED - Viral infection, unspecified - Nicotine dependence, unspecified, uncomplicated - Essential (primary) hypertension 05/11/2021 07:55 [facility] [place] TYPE: Emergency COMPLAINT: - COUGH,SOB, TIRED DIAGNOSES: - COUGH, UNSPECIFIED - Nicotine dependence, unspecified, uncomplicated - Bronchitis, not specified as acute or chronic 2021 04:12 [facility] [place] TYPE: Emergency COMPLAINT: - HAND PAIN DIAGNOSES: - Nicotine dependence, unspecified, uncomplicated - Pain in right hand - Pain in left hand 04/03/2021 15:02 [facility] [address] [facility] [place] TYPE: Emergency COMPLAINT: - VOMITING DIAGNOSES: - Nicotine dependence, unspecified, uncomplicated - Noninfective gastroenteritis and colitis, unspecified - Vomiting, unspecified - Dehydration 02/08/2021 03:22 [facility] [place] TYPE: Emergency COMPLAINT: - SKIN PROBLEM DIAGNOSES: - Nicotine dependence, unspecified, uncomplicated - Dermatitis, unspecified - Pain in right hand 12/15/2020 01:34 [facility] [place] TYPE: Emergency COMPLAINT: - DIFFICULTY BREATHING/DIFFICULTY STANDING DIAGNOSES: - Dizziness and giddiness - Nicotine dependence, unspecified, uncomplicated 11/24/2020 09:47 [facility] [address] [facility] [place] TYPE: Emergency COMPLAINT: - HIT HEAD DIAGNOSES: - Nicotine dependence, unspecified, uncomplicated - Fall on same level, unspecified, initial encounter - Other stimulant use, unspecified, uncomplicated - Syncope and collapse - Abrasion of scalp, initial encounter 11/13/2020 20:21 [facility] [address] [place] TYPE: [...] visits to display in this time frame [id number]
[2021-09-01] MEDS ORDERED: ZYPREXA5 MG PO (17:48)
== END 2021-09-01 18:11 | disposition home or self-care (01) ==
LOC: ED 16:15
DX: F25.9 Schizoaffective disorder, unspecified (principal); I10 Essential (primary) hypertension; F17.200 Nicotine dependence, unspecified, uncomplicated; Z88.8 Allergy status to other drugs, medicaments and biological substances
CPT/HCPCS: 99284

== ENCOUNTER 2021-09-15 06:29 | Emergency (ER) | payer MEDICARE, OTHER ==
[~2021-09-15] VITALS: Ht 162.6 cm; Wt 56.7 kg
--- OUTSIDE RECORDS SUMMARY | 2021-09-15 06:36 | XMS ---
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 07/25/2020 15:59 - Other Details: PATIENT LWBS. Elopement at [facility] 07/15/2020 12:59 - Other Details: PATIENT LWBS. CRITERIA MET - - 2 Visits in 30 Days - Group Notification - 6 ED Visits in 6 Months CARE PROVIDERS HARI [facility] Current PHONE: [phone] [place] has no Care Guidelines for this patient. Care History Medical/Surgical 09/02/2021 [facility] - MULTIPLE ATTEMPTS TO CONTACT PATIENT - - PATIENT HAS DECLINED COMMUNITY COUNSELING [employer]UTIONS HELP- MULTIPLE ATTEMPTS HAVE BEEN MADE AND PATIENT DECLINES EVERY TIME. - PATIENT HAS DECLINED HELP FROM KATHLEEN - PATIENT IS ABLE TO GO TO THE DAY CENTER THAT KATHLEEN PROVIDES. 11/27/2020 [facility] - KATHLEEN HELPED PATIENT WITH TREATMENT PLACEMENT AT [facility] - PATIENT WAS AT TREATMENT FACILITY AND LEFT AMA BY FOOT - PATIENT IS BACK IN THE AREA AND KATHLEEN HAS NO WAY OF CONTACTING PATIENT - IF PATIENT IS SEEN IN THE ED AGAIN-PLEASE ASK IF PATIENT WOULD BE OKAY WITH KATHLEEN BEING CONTACTED. 11/14/2020 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 Shabazz VISIT COUNT (12 MO.) 16 LASHAY Delgado TOTAL 16 NOTE: Visits indicate total known visits. ED/UCC VISIT TRACKING (12 MO.) 09/15/2021 06:29 [facility] [place] TYPE: Emergency COMPLAINT: - JOINT PAIN 09/01/2021 16:16 [facility] [place] TYPE: Emergency COMPLAINT: - PAIN DIAGNOSES: - Essential (primary) hypertension - Schizoaffective disorder, unspecified - Allergy status to other drugs, medicaments and biological substances - Nicotine dependence, unspecified, uncomplicated 08/27/2021 04:34 [facility] [place] TYPE: Emergency COMPLAINT: - HYPOTHERMIC DIAGNOSES: - Other stimulant abuse, uncomplicated - Essential (primary) hypertension - Other forms of stomatitis - Nicotine dependence, unspecified, uncomplicated - Schizoaffective disorder, unspecified 07/13/2021 21:24 [facility] [place] TYPE: Emergency COMPLAINT: - ABDOM PAIN DIAGNOSES: - Essential (primary) hypertension - Nicotine dependence, unspecified, uncomplicated - Dizziness and giddiness 07/02/2021 09:03 [facility] [place] TYPE: Emergency COMPLAINT: - COUGH, FEVER, SOB DIAGNOSES: - Acute bronchitis, unspecified - Nicotine dependence, unspecified, uncomplicated - Dyspnea, unspecified - Essential (primary) hypertension 05/18/2021 08:40 [facility] [place] TYPE: Emergency COMPLAINT: - DIZZY, CHILLS, BODY PAIN DIAGNOSES: - COUGH, UNSPECIFIED - Viral infection, unspecified - Nicotine dependence, unspecified, uncomplicated - Essential (primary) hypertension 05/11/2021 07:55 [facility] [place] TYPE: Emergency COMPLAINT: - COUGH,SOB, TIRED DIAGNOSES: - COUGH, UNSPECIFIED - Nicotine dependence, unspecified, uncomplicated - Bronchitis, not specified as acute or chronic 2021 04:12 [facility] [place] TYPE: Emergency COMPLAINT: - HAND PAIN DIAGNOSES: - Nicotine dependence, unspecified, uncomplicated - Pain in right hand - Pain in left hand 04/03/2021 15:[address] [place] TYPE: Emergency COMPLAINT: - VOMITING DIAGNOSES: - Nicotine dependence, unspecified, uncomplicated - Noninfective gastroenteritis and colitis, unspecified - Vomiting, unspecified - Dehydration 02/08/2021 03:22 [facility] [place] TYPE: Emergency COMPLAINT: - SKIN PROBLEM DIAGNOSES: - Nicotine dependence, unspecified, uncomplicated - Dermatitis, unspecified - Pain in right hand 12/15/2020 01:[address] [facility] [place] TYPE: Emergency COMPLAINT: - DIFFICULTY BREATHING/DIFFICULTY STANDING DIAGNOSES: - Dizziness and giddiness - Nicotine dependence, unspecified, uncomplicated 11/24/2020 09:[address] [place] TYPE: Emergency COMPLAINT: - HIT HEAD DIAGNOSES: - Nicotine dependence, unspecified, uncomplicated - Fall on same level, unspecified, initial encounter - Other stimulant use, unspecified, uncomplicated - Syncope and collapse - Abrasion of scalp, initial encounter 11/13/2020 20:21 [facility] [place] TYPE: Emergency COMPLAINT: - NOT FEELING WELL DIAGNOSES: - Nicotine dependence, unspecified, uncomplicated - Restlessness and agitation - Other stimulant abuse, uncomplicated 10/27/2020 16:[address] [facility] [address] [place] TYPE: Emergency COMPLAINT: - MEDICAL CLEARANCE DIAGNOSES: - Altered mental status, unspecified - Other stimulant abuse with stimulant-induced psychotic disorder, unspecified - Unspecified psychosis not due to a substance or known physiological condition - Other stimulant abuse, uncomplicated - Personal history of nicotine dependence 09/20/2020 11:21 [facility] [place] TYPE: Emergency COMPLAINT: - DIZZY, SKIN PROBLEM DIAGNOSES: - Delusional disorders - Nicotine dependence, unspecified, uncomplicated 09/17/2020 11:[address] [facility] [address] [facility] [place] TYPE: Emergency COMPLAINT: - SKIN PROBLEM DIAGNOSES: - Nicotine dependence, unspecified, uncomplicated - Other specified disorders of the skin and subcutaneous tissue INPATIENT VISIT TRACKING (12 MO.) No inpatient visits to display in this time frame [id number]
== END 2021-09-15 07:00 | disposition home or self-care (01) ==
LOC: ED 06:29
DX: M25.50 Pain in unspecified joint (principal); M79.10 Myalgia, unspecified site; I10 Essential (primary) hypertension; F17.200 Nicotine dependence, unspecified, uncomplicated
CPT/HCPCS: 99283

== ENCOUNTER 2021-09-21 01:40 | Emergency (ER) | payer MEDICARE, OTHER ==
[~2021-09-21] VITALS: Ht 162.6 cm; Wt 56.7 kg
--- OUTSIDE RECORDS SUMMARY | 2021-09-21 01:46 | XMS ---
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 Elopement at [facility] 07/15/2020 12:59 - Other Details: PATIENT LWBS. CRITERIA MET - [facility] - 2 Visits in 30 Days - Group Notification - 6 ED Visits in 6 Months CARE PROVIDERS HARI [facility] Current PHONE: [phone] [place] has no Care Guidelines for this patient. Care History Medical/Surgical 09/02/2021 [facility] - MULTIPLE ATTEMPTS TO CONTACT PATIENT - - PATIENT HAS DECLINED COMMUNITY COUNSELING SOLUTIONS HELP- MULTIPLE ATTEMPTS HAVE BEEN MADE AND PATIENT DECLINES EVERY TIME. - PATIENT HAS DECLINED HELP FROM KATHLEEN - PATIENT IS ABLE TO GO TO THE DAY CENTER THAT KATHLEEN PROVIDES. 11/27/2020 [facility] - KATHLEEN HELPED PATIENT WITH TREATMENT PLACEMENT AT [facility] - PATIENT WAS AT TREATMENT FACILITY AND LEFT AMA BY FOOT - PATIENT IS BACK IN THE AREA AND KATHLEEN HAS NO WAY OF CONTACTING PATIENT - IF PATIENT IS SEEN IN THE ED AGAIN-PLEASE ASK IF PATIENT WOULD BE OKAY WITH KATHLEEN BEING CONTACTED. 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 Shabazz VISIT COUNT (12 MO.) 15 LASHAY Delgado TOTAL 15 NOTE: Visits indicate total known visits. ED/UCC VISIT TRACKING (12 MO.) 09/21/2021 01:40 [facility] [place] TYPE: Emergency COMPLAINT: - SHORTNESS OF BREATH 09/15/2021 06:29 [place] [place] TYPE: Emergency COMPLAINT: - JOINT PAIN DIAGNOSES: - Myalgia, unspecified site - Pain in unspecified joint - Essential (primary) hypertension - Nicotine dependence, unspecified, uncomplicated 09/01/2021 16:16 [facility] [place] TYPE: Emergency COMPLAINT: - PAIN DIAGNOSES: - Essential (primary) hypertension - Schizoaffective disorder, unspecified - Allergy status to other drugs, medicaments and biological substances - Nicotine dependence, unspecified, uncomplicated 08/27/2021 04:34 [facility] [place] TYPE: Emergency COMPLAINT: - HYPOTHERMIC DIAGNOSES: - Other stimulant abuse, uncomplicated - Essential (primary) hypertension - Other forms of stomatitis - Nicotine dependence, unspecified, uncomplicated - Schizoaffective disorder, unspecified 07/13/2021 21:24 [facility] [place] TYPE: Emergency COMPLAINT: - ABDOM PAIN DIAGNOSES: - Essential (primary) hypertension - Nicotine dependence, unspecified, uncomplicated - Dizziness and giddiness 07/02/2021 09:03 [facility] [place]: Emergency COMPLAINT: - COUGH, FEVER, SOB DIAGNOSES: - Acute bronchitis, unspecified - Nicotine dependence, unspecified, uncomplicated - Dyspnea, unspecified - Essential (primary) hypertension 05/18/2021 08:40 [facility] [place] TYPE: Emergency COMPLAINT: - DIZZY, CHILLS, BODY PAIN DIAGNOSES: - COUGH, UNSPECIFIED - Viral infection, unspecified - Nicotine dependence, unspecified, uncomplicated - Essential (primary) hypertension 05/11/2021 07:55 [facility] [place] TYPE: Emergency COMPLAINT: - COUGH,SOB, TIRED DIAGNOSES: - COUGH, UNSPECIFIED - Nicotine dependence, unspecified, uncomplicated - Bronchitis, not specified as acute or chronic 2021 04:[address] [place] TYPE: Emergency COMPLAINT: - HAND PAIN DIAGNOSES: - Nicotine dependence, unspecified, uncomplicated - Pain in right hand - Pain in left hand 04/03/2021 15:02 L[facility]AY [place] TYPE: Emergency COMPLAINT: - VOMITING DIAGNOSES: - Nicotine dependence, unspecified, uncomplicated - Noninfective gastroenteritis and colitis, unspecified - Vomiting, unspecified - Dehydration 02/08/2021 03:22 [facility] [place] TYPE: Emergency COMPLAINT: - SKIN PROBLEM DIAGNOSES: - Nicotine dependence, unspecified, uncomplicated - Dermatitis, unspecified - Pain in right hand 12/15/2020 01:34 [facility] [place] TYPE: Emergency COMPLAINT: - [...] uncomplicated - Personal history of nicotine dependence INPATIENT VISIT TRACKING (12 MO.) No inpatient visits to display in this time frame [email or web address]
[2021-09-21] MEDS ORDERED: LISINOPRIL10 MG PO (03:32)
--- NOTE | 2021-09-21 17:37 | EKG ---
[facility] [address] [place] [address] Signed Normal sinus rhythm Nonspecific T wave abnormality Abnormal ECG When compared with ECG of 13-JUL-2021 21:39, Inverted T waves have replaced nonspecific T wave abnormality in Lateral leads Confirmed by ANALY ALEX DO ([id number]) on 09/21/2021 5:37:16 PM Electronically Signed By: ANALY ALEX DO 09/21/21 1737 PATIENT NAME: VALENTINO SORTO Electrocardiogram DATE OF : 68 PHYSICIAN: ANALY ALEX DO REPORT #: [id number] REPORT IS CONFIDENTIAL AND NOT TO BE RELEASED WITHOUT AUTHORIZATION
== END 2021-09-21 03:43 | disposition home or self-care (01) ==
LOC: ED 01:40
DX: F15.10 Other stimulant abuse, uncomplicated (principal); I10 Essential (primary) hypertension; F17.200 Nicotine dependence, unspecified, uncomplicated
CPT/HCPCS: 36415; 71045; 71260; 80048; 81001; 83880; 84484; 85025; 85379; 93005; 93010; 99285-25; Q9967

== ENCOUNTER 2021-09-22 20:54 | Emergency (ER) | payer MEDICARE, OTHER ==
[~2021-09-22] VITALS: Ht 162.6 cm; Wt 57.3 kg
--- OUTSIDE RECORDS SUMMARY | 2021-09-22 20:58 | XMS ---
PreManage Notification: VALENTINO SORTO Security Improvement Rn Events 2 event(s) in the past 18 months Most recent security events: Elopement at [facility] 07/25/2020 15:59 - Other Details: PATIENT LWBS. Elopement at [facility] 07/15/2020 12:59 - Other Details: PATIENT LWBS. CRITERIA MET - Group Notification - [facility] - 2 Visits in 30 Days - 6 ED Visits in 6 Months CARE PROVIDERS HARI [facility] Current PHONE: [phone] [place] has no Care Guidelines for this patient. Care History Medical/Surgical 09/02/2021 [facility] - MULTIPLE ATTEMPTS TO CONTACT PATIENT - - PATIENT HAS DECLINED COMMUNITY COUNSELING SOLUTIONS HELP- MULTIPLE ATTEMPTS HAVE BEEN MADE AND PATIENT DECLINES EVERY TIME. - PATIENT HAS DECLINED HELP FROM KATHLEEN - PATIENT IS ABLE TO GO TO THE DAY CENTER THAT KATHLEEN PROVIDES. 11/27/2020 [facility] - KATHLEEN HELPED PATIENT WITH TREATMENT PLACEMENT AT [facility] - PATIENT WAS AT TREATMENT FACILITY AND LEFT AMA BY FOOT - PATIENT IS BACK IN THE AREA AND KATHLEEN HAS NO WAY OF CONTACTING PATIENT - IF PATIENT IS SEEN IN THE ED AGAIN-PLEASE ASK IF PATIENT WOULD BE OKAY WITH KATHLEEN BEING CONTACTED. 11/14/2020 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 Shabazz VISIT COUNT (12 MO.) 16 LASHAY Delgado TOTAL 16 NOTE: Visits indicate total known visits. ED/UCC VISIT TRACKING (12 MO.) 09/22/2021 20:55 [facility] [place] TYPE: Emergency COMPLAINT: - VOMITING 09/21/2021 01:40 [place] [place] TYPE: Emergency COMPLAINT: - SHORTNESS OF BREATH 09/15/2021 06:29 [facility] [place] TYPE: Emergency COMPLAINT: - JOINT PAIN DIAGNOSES: - Myalgia, unspecified site - Pain in unspecified joint - Essential (primary) hypertension - Nicotine dependence, unspecified, uncomplicated 09/01/2021 16:16 [facility] [place] TYPE: Emergency COMPLAINT: - PAIN DIAGNOSES: - Essential (primary) hypertension - Schizoaffective disorder, unspecified - Allergy status to other drugs, medicaments and biological substances - Nicotine dependence, unspecified, uncomplicated 08/27/2021 04:34 [facility] [place] TYPE: Emergency COMPLAINT: - HYPOTHERMIC DIAGNOSES: - Other stimulant abuse, uncomplicated - Essential (primary) hypertension - Other forms of stomatitis - Nicotine dependence, unspecified, uncomplicated - Schizoaffective disorder, unspecified 07/13/2021 21:24 [facility] [place] TYPE: Emergency COMPLAINT: - ABDOM PAIN DIAGNOSES: - Essential (primary) hypertension - Nicotine dependence, unspecified, uncomplicated - Dizziness and giddiness 07/02/2021 09:03 [facility] [place] TYPE: Emergency COMPLAINT: - COUGH, FEVER, SOB DIAGNOSES: - Acute bronchitis, unspecified - Nicotine dependence, unspecified, uncomplicated - Dyspnea, unspecified - Essential (primary) hypertension 05/18/2021 08:40 [facility] [place] TYPE: Emergency COMPLAINT: - DIZZY, CHILLS, BODY PAIN DIAGNOSES: - COUGH, UNSPECIFIED - Viral infection, unspecified - Nicotine dependence, unspecified, uncomplicated - Essential (primary) hypertension 05/11/2021 07:[address] [facility] [address] [place] TYPE: Emergency COMPLAINT: - COUGH,SOB, TIRED DIAGNOSES: - COUGH, UNSPECIFIED - Nicotine dependence, unspecified, uncomplicated - Bronchitis, not specified as acute or chronic 2021 04:12 [facility] [place] TYPE: Emergency COMPLAINT: - HAND PAIN DIAGNOSES: - Nicotine dependence, unspecified, uncomplicated - Pain in right hand - Pain in left hand 04/03/2021 15:02 [facility] [place] TYPE: Emergency COMPLAINT: - VOMITING DIAGNOSES: - Nicotine dependence, unspecified, uncomplicated - Noninfective gastroenteritis and colitis, unspecified - Vomiting, unspecified - Dehydration 02/08/2021 03:22 [facility] [place] TYPE: Emergency COMPLAINT: - [...] - Other stimulant abuse, uncomplicated 10/27/2020 16:08 [facility] [place] TYPE: Emergency COMPLAINT: - MEDICAL CLEARANCE DIAGNOSES: - Altered mental status, unspecified - Other stimulant abuse with stimulant-induced psychotic disorder, unspecified - Unspecified psychosis not due to a substance or known physiological condition - Other stimulant abuse, uncomplicated - Personal history of nicotine dependence INPATIENT VISIT TRACKING (12 MO.) No inpatient visits to display in this time frame [email or web address]
== END 2021-09-22 23:09 | disposition home or self-care (01) ==
LOC: ED 20:54
DX: R11.10 Vomiting, unspecified (principal); I10 Essential (primary) hypertension; F17.200 Nicotine dependence, unspecified, uncomplicated; Z79.899 Other long term (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
CPT/HCPCS: 36415; 80053; 85025; 96374; 99284-25; J2765; J7030

== ENCOUNTER 2021-11-12 04:26 | Emergency (ER) | payer MEDICARE ==
[~2021-11-12] VITALS: Ht 162.6 cm; Wt 57.1 kg
--- OUTSIDE RECORDS SUMMARY | 2021-11-12 04:34 | XMS ---
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 Elopement at [facility] 07/15/2020 12:59 - Other Details: PATIENT LWBS. CRITERIA MET - 6 ED Visits in 6 Months - Group Notification CARE PROVIDERS HARI [facility] Current PHONE: [phone] [place] has no Care Guidelines for this patient. Care History Medical/Surgical 09/02/2021 [facility] - MULTIPLE ATTEMPTS TO CONTACT PATIENT - - PATIENT HAS DECLINED COMMUNITY COUNSELING SOLUTIONS HELP- MULTIPLE ATTEMPTS HAVE BEEN MADE AND PATIENT DECLINES EVERY TIME. - PATIENT HAS DECLINED HELP FROM KATHLEEN - PATIENT IS ABLE TO GO TO THE DAY CENTER THAT KATHLEEN PROVIDES. 11/27/2020 [facility] - KATHLEEN HELPED PATIENT WITH TREATMENT PLACEMENT AT [facility] - PATIENT WAS AT TREATMENT FACILITY AND LEFT AMA BY FOOT - PATIENT IS BACK IN THE AREA AND KATHLEEN HAS NO WAY OF CONTACTING PATIENT - IF PATIENT IS SEEN IN THE ED AGAIN-PLEASE ASK IF PATIENT WOULD BE OKAY WITH KATHLEEN BEING CONTACTED. 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 Shabazz VISIT COUNT (12 MO.) 16 LASHAY Delgado TOTAL 16 NOTE: Visits indicate total known visits. ED/UCC VISIT TRACKING (12 MO.) 11/12/2021 04:27 [facility] [place] TYPE: Emergency COMPLAINT: - MEDICAL CLEARANCE 09/22/2021 20:[address] [facility] [place] TYPE: Emergency COMPLAINT: - VOMITING DIAGNOSES: - Nicotine dependence, unspecified, uncomplicated - Essential (primary) hypertension - Other watermaster (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 - Vomiting, unspecified 09/21/2021 01:[address] [facility] [place] TYPE: Emergency COMPLAINT: - SHORTNESS OF BREATH DIAGNOSES: - Shortness of breath - Nicotine dependence, unspecified, uncomplicated - Essential (primary) hypertension - Other stimulant abuse, uncomplicated 09/15/2021 06:[address] [facility] [place] TYPE: Emergency COMPLAINT: - JOINT PAIN DIAGNOSES: - Myalgia, unspecified site - Pain in unspecified joint - Essential (primary) hypertension - Nicotine dependence, unspecified, uncomplicated 09/01/2021 16:[address] [facility] [place] TYPE: Emergency COMPLAINT: - [...] - Dizziness and giddiness 07/02/2021 09:03 [facility] [place] [place] TYPE: Emergency COMPLAINT: - COUGH, FEVER, SOB DIAGNOSES: - Acute bronchitis, unspecified - Nicotine dependence, unspecified, uncomplicated - Dyspnea, unspecified - Essential (primary) hypertension 05/18/2021 08:[address] [facility] [place] TYPE: Emergency COMPLAINT: - DIZZY, CHILLS, BODY PAIN DIAGNOSES: - COUGH, UNSPECIFIED - Viral infection, unspecified - Nicotine dependence, unspecified, uncomplicated - Essential (primary) hypertension 05/11/2021 07:[address] [facility] [place] TYPE: Emergency COMPLAINT: - COUGH,SOB, TIRED DIAGNOSES: - COUGH, UNSPECIFIED - Nicotine dependence, unspecified, uncomplicated - Bronchitis, not specified as acute or chronic 2021 04:[address] [facility] [place] TYPE: Emergency COMPLAINT: - HAND PAIN DIAGNOSES: - Nicotine dependence, unspecified, uncomplicated - Pain in right hand - Pain in left hand 04/03/2021 15:[address] [facility] [address] [place] TYPE: Emergency COMPLAINT: - VOMITING DIAGNOSES: [...] and agitation - Other stimulant abuse, uncomplicated INPATIENT VISIT TRACKING (12 MO.) No inpatient visits to display in this time frame [id number]
[2021-11-12] MEDS ORDERED: ZITHROMAX250 MG PO (06:26)
--- NOTE | 2021-11-12 06:40 | EKG ---
[facility] [address] [place] [address] Signed Sinus rhythm with occasional premature ventricular complexes Moderate voltage criteria for LVH, may be normal variant ( Sokolow-Hendrix , Dresden product ) T wave abnormality, consider inferolateral ischemia Abnormal ECG When compared with ECG of 21-SEP-2021 02:00, premature ventricular complexes are now present Confirmed by CANDICE BOTELLO MD ([id number]) on 11/12/2021 6:40:28 AM Electronically Signed By: CANDICE BOTELLO MD 11/12/21 0640 PATIENT NAME: VALENTINO SORTO Electrocardiogram DATE OF : 68 PHYSICIAN: CANDICE BOTELLO MD REPORT #: [id number] REPORT IS CONFIDENTIAL AND NOT TO BE RELEASED WITHOUT AUTHORIZATION
[2021-11-12] MEDS ORDERED: ROBITUSSIN COU1 EACH PO (22:22)
== END 2021-11-12 06:47 | disposition home or self-care (01) ==
LOC: ED 04:26
DX: J18.9 Pneumonia, unspecified organism (principal); I10 Essential (primary) hypertension; F17.200 Nicotine dependence, unspecified, uncomplicated
CPT/HCPCS: 36415; 71045; 80048; 84484; 85025; 93005; 93010; 99285-25; U0003

== ENCOUNTER 2021-11-12 20:47 | Emergency (ER) | payer MEDICARE ==
[~2021-11-12] VITALS: Ht 162.6 cm; Wt 57.1 kg
--- OUTSIDE RECORDS SUMMARY | 2021-11-12 20:54 | XMS ---
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 Elopement at [facility] 07/15/2020 12:59 - Other Details: PATIENT LWBS. CRITERIA MET - Group Notification - [facility] - 2 Visits in 30 Days - 6 ED Visits in 6 Months CARE PROVIDERS HARI [facility] Current PHONE: [phone] [place] has no Care Guidelines for this patient. Care History Medical/Surgical 09/02/2021 [facility] - MULTIPLE ATTEMPTS TO CONTACT PATIENT - - PATIENT HAS DECLINED COMMUNITY COUNSELING SOLUTIONS HELP- MULTIPLE ATTEMPTS HAVE BEEN MADE AND PATIENT DECLINES EVERY TIME. - PATIENT HAS DECLINED HELP FROM KATHLEEN - PATIENT IS ABLE TO GO TO THE DAY CENTER THAT KATHLEEN PROVIDES. 11/27/2020 [facility] - KATHLEEN HELPED PATIENT WITH TREATMENT PLACEMENT AT [facility] - PATIENT WAS AT TREATMENT FACILITY AND LEFT AMA BY FOOT - PATIENT IS BACK IN THE AREA AND KATHLEEN HAS NO WAY OF CONTACTING PATIENT - IF PATIENT IS SEEN IN THE ED AGAIN-PLEASE ASK IF PATIENT WOULD BE OKAY WITH KATHLEEN BEING CONTACTED. 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 Shabazz VISIT COUNT (12 MO.) 17 LASHAY Delgado TOTAL 17 NOTE: Visits indicate total known visits. ED/UCC VISIT TRACKING (12 MO.) 11/12/2021 20:48 [facility] [place] TYPE: Emergency COMPLAINT: - DIFFICULTY BREATHING 11/12/2021 04:27 [facility] [place] TYPE: Emergency COMPLAINT: - MEDICAL CLEARANCE 09/22/2021 20:55 [facility] [place] TYPE: Emergency COMPLAINT: - VOMITING DIAGNOSES: - Nicotine dependence, unspecified, uncomplicated - Essential (primary) hypertension - Other long term care administrator (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 - Vomiting, unspecified 09/21/2021 01:40 [facility] [place] TYPE: Emergency COMPLAINT: - SHORTNESS OF BREATH DIAGNOSES: - Shortness of breath - Nicotine dependence, unspecified, uncomplicated - Essential (primary) hypertension - Other stimulant abuse, uncomplicated 09/15/2021 06:29 [facility] [place] TYPE: Emergency COMPLAINT: - JOINT PAIN DIAGNOSES: - Myalgia, unspecified site - Pain in unspecified joint - Essential (primary) hypertension - Nicotine dependence, unspecified, uncomplicated 09/01/2021 16:16 [facility] [place] TYPE: Emergency COMPLAINT: - PAIN [...] uncomplicated - Schizoaffective disorder, unspecified 07/13/2021 21:[address] [facility] [address] [place] TYPE: Emergency COMPLAINT: - ABDOM PAIN DIAGNOSES: - Essential (primary) hypertension - Nicotine dependence, unspecified, uncomplicated - Dizziness and giddiness 07/02/2021 09:03 [place] TYPE: Emergency COMPLAINT: - COUGH, FEVER, SOB DIAGNOSES: - Acute bronchitis, unspecified - Contact with and (suspected) exposure to COVID-19 - Nicotine dependence, unspecified, uncomplicated - Dyspnea, unspecified - Essential (primary) hypertension 05/18/2021 08:40 [facility] [place] TYPE: Emergency COMPLAINT: - DIZZY, CHILLS, BODY PAIN DIAGNOSES: - COUGH, UNSPECIFIED - Contact with and (suspected) exposure to COVID-19 - Viral infection, unspecified - Nicotine dependence, unspecified, uncomplicated - Cough, unspecified - Essential (primary) hypertension 05/11/2021 07:55 [facility] [place] TYPE: Emergency COMPLAINT: - COUGH,SOB, TIRED DIAGNOSES: - COUGH, UNSPECIFIED - Cough, unspecified - Nicotine dependence, unspecified, uncomplicated - Contact with and (suspected) exposure to COVID-19 - Bronchitis, not specified as acute or chronic 2021 04:12 [facility] [place] TYPE: Emergency COMPLAINT: - HAND PAIN DIAGNOSES: - Nicotine dependence, unspecified, uncomplicated - Pain in right hand - Pain in left hand 04/03/2021 15:02 [facility] [place] [place] TYPE: Emergency COMPLAINT: - VOMITING DIAGNOSES: - Nicotine dependence, unspecified, uncomplicated - Noninfective gastroenteritis and colitis, unspecified - Vomiting, unspecified - Contact with and (suspected) exposure to COVID-19 - Dehydration 02/08/2021 03:22 [facility] [place] [...] visits to display in this time frame [email or web address]
[2021-11-12] MEDS ORDERED: ROBITUSSIN COU1 EACH PO (22:22)
--- NOTE | 2021-11-12 22:24 | EKG ---
[facility] [address] [place] [address] Signed Sinus rhythm with occasional premature ventricular complexes Right superior axis deviation Minimal voltage criteria for LVH, may be normal variant ( Elio product ) Nonspecific T wave abnormality Abnormal ECG When compared with ECG of 12-NOV-2021 04:52, QRS axis shifted left T wave inversion less evident in Lateral leads Confirmed by CANDICE BOTELLO MD ([id number]) on 11/12/2021 10:24:22 PM Electronically Signed By: CANDICE BOTELLO MD 11/12/212223 PATIENT NAME: VALENTINO SORTO Electrocardiogram DATE OF : 68 PHYSICIAN: CANDICE BOTELLO MD REPORT #: [id number] REPORT IS CONFIDENTIAL AND NOT TO BE RELEASED WITHOUT AUTHORIZATION
== END 2021-11-12 22:38 | disposition home or self-care (01) ==
LOC: ED 20:47
DX: J18.9 Pneumonia, unspecified organism (principal); D64.9 Anemia, unspecified; I10 Essential (primary) hypertension; F17.200 Nicotine dependence, unspecified, uncomplicated; Z79.899 Other long term (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
CPT/HCPCS: 36415; 80048; 84484; 85025; 85379; 93005; 93010; 99285-25; A9270; U0003

== ENCOUNTER 2022-01-03 05:43 | Emergency (ER) | payer MEDICARE, OTHER ==
[~2022-01-03] VITALS: Ht 162.6 cm; Wt 57.1 kg
[~2022-01-03 05:43] MED LIST changes: +ROBITUSSIN COU1 EACH PO
--- OUTSIDE RECORDS SUMMARY | 2022-01-03 05:50 | XMS ---
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 Elopement at [facility] 07/15/2020 12:59 - Other Details: PATIENT LWBS. CRITERIA MET - Group Notification - 6 ED Visits in 6 Mon[address] PROVID[address] [facility]I [facility] 01/24/2020-Current PHONE: [phone] [place] has no Care Guidelines for this patient. Care History Medical/Surgical 09/02/2021 [facility] - MULTIPLE ATTEMPTS TO CONTACT PATIENT - - PATIENT HAS DECLINED COMMUNITY COUNSELING SOLUTIONS HELP- MULTIPLE ATTEMPTS HAVE BEEN MADE AND PATIENT DECLINES EVERY TIME. - PATIENT HAS DECLINED HELP FROM KATHLEEN - PATIENT IS ABLE TO GO TO THE DAY CENTER THAT KATHLEEN PROVIDES. 11/27/2020 [facility] - KATHLEEN HELPED PATIENT WITH TREATMENT PLACEMENT AT [facility] - PATIENT WAS AT TREATMENT FACILITY AND LEFT AMA BY FOOT - PATIENT IS BACK IN THE AREA AND KATHLEEN HAS NO WAY OF CONTACTING PATIENT - IF PATIENT IS SEEN IN THE ED AGAIN-PLEASE ASK IF PATIENT WOULD BE OKAY WITH KATHLEEN BEING CONTACTED. 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 Shabazz VISIT COUNT (12 MO.) 15 LASHAY Delgado TOTAL 15 NOTE: Visits indicate total known visits. ED/UCC VISIT TRACKING (12 MO.) 01/03/2022 05:43 [facility] [place] TYPE: Emergency COMPLAINT: - DENTAL PAIN 11/12/2021 20:48 [facility] [place] TYPE: Emergency COMPLAINT: - DIFFICULTY BREATHING DIAGNOSES: - Essential (primary) hypertension - Nicotine dependence, unspecified, uncomplicated - Other continuous churn buttermaker (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 - Anemia, unspecified - Cough, unspecified - Pneumonia, unspecified organism 11/12/2021 04:27 [facility] [place] TYPE: Emergency COMPLAINT: - MEDICAL CLEARANCE DIAGNOSES: - Pneumonia, unspecified organism - Contact with and (suspected) exposure to COVID- - Cough, unspecified - Anemia, unspecified - Essential (primary) hypertension - Nicotine dependence, unspecified, uncomplicated 09/22/2021 20:55 [facility] [place] TYPE: Emergency COMPLAINT: - VOMITING DIAGNOSES: - Nicotine dependence, unspecified, uncomplicated - Essential (primary) hypertension - Other continuous churn buttermaker (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 - Vomiting, unspecified 09/21/2021 [...] - Dizziness and giddiness 07/02/2021 09:03 [place] [place] TYPE: Emergency COMPLAINT: - COUGH, FEVER, SOB DIAGNOSES: - Acute bronchitis, unspecified - Contact with and (suspected) exposure to COVID-19 - Nicotine dependence, unspecified, uncomplicated - Dyspnea, unspecified - Essential (primary) hypertension 05/18/2021 08:[address] [facility] [place] TYPE: Emergency COMPLAINT: - DIZZY, CHILLS, BODY PAIN DIAGNOSES: - COUGH, UNSPECIFIED - Contact with and (suspected) exposure to COVID-19 - Viral infection, unspecified - Nicotine dependence, unspecified, uncomplicated - Cough, unspecified - Essential (primary) hypertension 05/11/2021 07:[address] [facility] [place] TYPE: Emergency COMPLAINT: - COUGH,SOB, TIRED DIAGNOSES: - COUGH, UNSPECIFIED - Cough, unspecified - Nicotine dependence, unspecified, uncomplicated - Contact with and (suspected) exposure to COVID-19 - Bronchitis, not specified as acute or chronic 2021 04:[address] [facility] [place] TYPE: Emergency COMPLAINT: - HAND PAIN DIAGNOSES: - Nicotine dependence, unspecified, uncomplicated - Pain in right hand - Pain in left hand 04/03/2021 15:[address] [facility] [place] TYPE: Emergency COMPLAINT: - VOMITING DIAGNOSES: - Nicotine dependence, unspecified, uncomplicated - Noninfective gastroenteritis and colitis, unspecified - Vomiting, unspecified - Contact with and (suspected) exposure to COVID-19 - Dehydration 02/08/2021 03:[address] [facility] [place] TYPE: Emergency COMPLAINT: - SKIN PROBLEM DIAGNOSES: - Nicotine dependence, unspecified, uncomplicated - Dermatitis, unspecified - Pain in right hand INPATIENT VISIT TRACKING (12 MO.) No inpatient visits to display in this time frame [email or web address]
[2022-01-03] MEDS ORDERED: ULTRAM50 MG PO (07:10)
[2022-01-03] MEDS ORDERED: AMOX TR-K CLV1 EAC1 PO (07:10)
== END 2022-01-03 07:32 | disposition home or self-care (01) ==
LOC: ED 05:43
DX: K04.7 Periapical abscess without sinus (principal); D64.9 Anemia, unspecified; I10 Essential (primary) hypertension; F17.200 Nicotine dependence, unspecified, uncomplicated
CPT/HCPCS: 36415; 70487; 80053; 85025; 96361; 99283-25; J1885; J7030; Q9967

== ENCOUNTER 2022-01-13 20:45 | Emergency (ER) | payer MEDICARE, OTHER ==
[~2022-01-13] VITALS: Ht 162.6 cm; Wt 51.0 kg
[~2022-01-13 20:45] MED LIST changes: +AMOX TR-K CLV1 EAC1 PO; +ULTRAM50 MG PO
--- OUTSIDE RECORDS SUMMARY | 2022-01-13 20:54 | XMS ---
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 Elopement at [facility] 07/15/2020 12:59 - Other Details: PATIENT LWBS. CRITERIA MET - Group Notification - 6 ED Visits in 6 Months - [facility] - 2 Visits in 30 Days CARE PROVIDERS HARI [facility] 01/24/2020-Current PHONE: [phone] [place] has no Care Guidelines for this patient. Care History Medical/Surgical 09/02/2021 [facility] - MULTIPLE ATTEMPTS TO CONTACT PATIENT - - PATIENT HAS DECLINED COMMUNITY COUNSELING SOLUTIONS HELP- MULTIPLE ATTEMPTS HAVE BEEN MADE AND PATIENT DECLINES EVERY TIME. - PATIENT HAS DECLINED HELP FROM KATHLEEN - PATIENT IS ABLE TO GO TO THE DAY CENTER THAT KATHLEEN PROVIDES. 11/27/2020 [facility] - KATHLEEN HELPED PATIENT WITH TREATMENT PLACEMENT AT [facility] - PATIENT WAS AT TREATMENT FACILITY AND LEFT AMA BY FOOT - PATIENT IS BACK IN THE AREA AND KATHLEEN HAS NO WAY OF CONTACTING PATIENT - IF PATIENT IS SEEN IN THE ED AGAIN-PLEASE ASK IF PATIENT WOULD BE OKAY WITH KATHLEEN BEING CONTACTED. 11/14/2020 [facility] - PATIENT HAS DECLINED TREATMENT HELP/PLACEMENT DUE TO LOCATION IN [place] - PATIENT HAS A DIRECTOR OF MATH-TRAVIS - KATINA TO FIND PLACEMENT/HELP FOR PATIENT IN THE AREA DUE TO PATIENT PAST - IF PATIENT IS WILLING TO ACCEPT HELP WITH TREATMENT PLEASE CONTACT COPES. Shabazz VISIT COUNT (12 MO.) 17 LASHAY Delgado TOTAL 17 NOTE: Visits indicate total known visits. ED/UCC VISIT TRACKING (12 MO.) 01/13/2022 20:46 [facility] [place] TYPE: Emergency COMPLAINT: - EXTREMITY PAIN 01/04/2022 23:[address] 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 - Anemia, unspecified - Cough, unspecified - Pneumonia, unspecified organism 11/12/2021 04:27 [facility] [place] TYPE: Emergency COMPLAINT: - MEDICAL CLEARANCE DIAGNOSES: - Pneumonia, unspecified organism - Contact with and (suspected) exposure to COVID- - Cough, unspecified - Anemia, unspecified - Essential (primary) hypertension - Nicotine dependence, unspecified, uncomplicated 09/22/2021 20:55 [facility] [place] TYPE: Emergency COMPLAINT: - VOMITING DIAGNOSES: - Nicotine dependence, unspecified, uncomplicated - Essential (primary) hypertension - Other shelter (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 - Vomiting, unspecified 09/21/2021 01:40 [facility] [place] TYPE: Emergency COMPLAINT: - SHORTNESS OF BREATH DIAGNOSES: - Shortness of breath - Nicotine dependence, unspecified, uncomplicated - Essential (primary) hypertension - Other stimulant abuse, uncomplicated 09/15/2021 06:29 [facility] [place] TYPE: Emergency COMPLAINT: - JOINT PAIN DIAGNOSES: - Myalgia, unspecified site - Pain in unspecified joint - Essential (primary) hypertension - Nicotine dependence, unspecified, uncomplicated 09/01/2021 16:16 [facility] [place] TYPE: Emergency COMPLAINT: - PAIN DIAGNOSES: - Essential (primary) hypertension - Schizoaffective disorder, unspecified - Allergy status to other drugs, medicaments and biological substances - Nicotine dependence, unspecified, uncomplicated 08/27/2021 04:34 [facility] [place] TYPE: Emergency COMPLAINT: - HYPOTHERMIC DIAGNOSES: - Other stimulant abuse, uncomplicated - Essential (primary) hypertension - Other forms of stomatitis - Nicotine dependence, unspecified, uncomplicated - Schizoaffective disorder, unspecified 07/13/2021 21:24 [facility] [place] TYPE: Emergency COMPLAINT: - ABDOM PAIN DIAGNOSES: - Essential (primary) hypertension - Nicotine dependence, unspecified, uncomplicated - Dizziness and giddiness 07/02/2021 09:03 [facility] [place] TYPE: Emergency COMPLAINT: - COUGH, FEVER, SOB DIAGNOSES: - Acute bronchitis, unspecified - Contact with and (suspected) exposure to COVID-19 - Nicotine dependence, unspecified, uncomplicated - Dyspnea, unspecified - Essential (primary) hypertension 05/18/2021 08:40 [facility] [place] TYPE: Emergency COMPLAINT: - DIZZY, CHILLS, BODY PAIN DIAGNOSES: - COUGH, UNSPECIFIED - Contact with and (suspected) exposure to COVID-19 - Viral infection, unspecified - Nicotine dependence, unspecified, uncomplicated - Cough, unspecified - Essential (primary) hypertension 05/11/2021 07:55 [facility] [place] TYPE: Emergency COMPLAINT: - COUGH,SOB, TIRED DIAGNOSES: - COUGH, UNSPECIFIED - Cough, unspecified - Nicotine dependence, unspecified, uncomplicated - Contact with and (suspected) exposure to COVID-19 - Bronchitis, not specified as acute or chronic 2021 04:12 [facility] [place] TYPE: Emergency COMPLAINT: [...] visits to display in this time frame [id number]
== END 2022-01-14 03:53 | disposition home or self-care (01) ==
LOC: ED 20:45
DX: B89 Unspecified parasitic disease (principal); D64.9 Anemia, unspecified; I10 Essential (primary) hypertension; F17.200 Nicotine dependence, unspecified, uncomplicated
CPT/HCPCS: 99283

== ENCOUNTER 2022-01-23 02:02 | Emergency (ER) | payer MEDICARE, OTHER ==
[~2022-01-23] VITALS: Ht 162.6 cm; Wt 50.8 kg
--- OUTSIDE RECORDS SUMMARY | 2022-01-23 02:10 | XMS ---
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 CRITERIA MET - 6 ED Visits in 6 Months - Group Notification - [facility] - 2 Visits in 30 Days CARE PROVIDERS JAMILA NORIEGA [facility] 01/24/2020-Current PHONE: [phone] [place] has no Care Guidelines for this patient. Care History Medical/Surgical 09/02/2021 [facility] - MULTIPLE ATTEMPTS TO CONTACT PATIENT - - PATIENT HAS DECLINED COMMUNITY COUNSELING SOLUTIONS HELP- MULTIPLE ATTEMPTS HAVE BEEN MADE AND PATIENT DECLINES EVERY TIME. - PATIENT HAS DECLINED HELP FROM KATHLEEN - PATIENT IS ABLE TO GO TO THE DAY CENTER THAT KATHLEEN PROVIDES. 11/27/2020 [facility] - KATHLEEN HELPED PATIENT WITH TREATMENT PLACEMENT AT [facility] - PATIENT WAS AT TREATMENT FACILITY AND LEFT AMA BY FOOT - PATIENT IS BACK IN THE AREA AND KATHLEEN HAS NO WAY OF CONTACTING PATIENT - IF PATIENT IS SEEN IN THE ED AGAIN-PLEASE ASK IF PATIENT WOULD BE OKAY WITH KATHLEEN BEING CONTACTED. 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 Shabazz VISIT COUNT (12 MO.) 18 LASHAY Delgado TOTAL 18 NOTE: Visits indicate total known visits. ED/UCC VISIT TRACKING (12 MO.) 01/23/2022 02:03 [facility] [place] TYPE: Emergency COMPLAINT: - HAND SWELLING 01/13/2022 20:46 [facility] [place] TYPE: Emergency COMPLAINT: - EXTREMITY PAIN DIAGNOSES: - Nicotine dependence, unspecified, uncomplicated - Unspecified parasitic disease - Anemia, unspecified - Essential (primary) hypertension - Diarrhea, unspecified 01/04/2022 23:40 [facility] [place] TYPE: Emergency COMPLAINT: - WEAKNESS 01/03/2022 05:43 [facility] [place] TYPE: Emergency COMPLAINT: - DENTAL PAIN DIAGNOSES: - Nicotine dependence, unspecified, uncomplicated - Anemia, unspecified - Essential (primary) hypertension - Periapical abscess without sinus 11/12/2021 20:48 [facility] [place] TYPE: Emergency COMPLAINT: - DIFFICULTY BREATHING DIAGNOSES: - Essential (primary) hypertension - Nicotine dependence, unspecified, uncomplicated - Other longterm (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 - Anemia, unspecified - Cough, unspecified - Pneumonia, unspecified organism 11/12/2021 04:27 [facility] [place] TYPE: Emergency COMPLAINT: - MEDICAL CLEARANCE DIAGNOSES: - Pneumonia, unspecified organism - Contact with and (suspected) exposure to COVID-19 - Cough, unspecified - Anemia, unspecified - Essential (primary) hypertension - Nicotine dependence, unspecified, uncomplicated 09/22/2021 20:55 [facility] [place] TYPE: Emergency COMPLAINT: - VOMITING DIAGNOSES: - Nicotine dependence, unspecified, uncomplicated - Essential (primary) hypertension - Other longterm (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 - Vomiting, unspecified 09/21/2021 01:40 [facility] [place] TYPE: Emergency COMPLAINT: - SHORTNESS OF BREATH DIAGNOSES: - Shortness of breath - Nicotine dependence, unspecified, uncomplicated - Essential (primary) hypertension - Other stimulant abuse, uncomplicated 09/15/2021 06:[address] [facility] [address] [facility] [place] TYPE: Emergency COMPLAINT: - JOINT PAIN DIAGNOSES: - Myalgia, unspecified site - Pain in unspecified joint - Essential (primary) hypertension - Nicotine dependence, unspecified, uncomplicated 09/01/2021 16:16 [facility] [place] TYPE: Emergency COMPLAINT: - PAIN DIAGNOSES: - Essential (primary) hypertension - Schizoaffective disorder, unspecified - Allergy status to other drugs, medicaments and biological substances - Nicotine dependence, unspecified, uncomplicated 08/27/2021 04:[address] [facility] [address] [place] TYPE: Emergency COMPLAINT: - HYPOTHERMIC DIAGNOSES: - Other stimulant abuse, uncomplicated - Essential (primary) hypertension - Other forms of stomatitis - Nicotine dependence, unspecified, uncomplicated - Schizoaffective disorder, unspecified 07/13/2021 21:[address] [facility] [address] [place] TYPE: Emergency COMPLAINT: - ABDOM PAIN DIAGNOSES: - Essential (primary) hypertension - Nicotine dependence, unspecified, uncomplicated - Dizziness and giddiness 07/02/2021 09:[address] [place] TYPE: Emergency COMPLAINT: - COUGH, FEVER, SOB DIAGNOSES: - Acute bronchitis, unspecified - Contact with and (suspected) exposure to COVID-19 - Nicotine dependence, unspecified, uncomplicated - Dyspnea, unspecified - Essential (primary) hypertension 05/18/2021 08:40 [facility] [place] TYPE: Emergency COMPLAINT: - DIZZY, CHILLS, BODY PAIN DIAGNOSES: - COUGH, UNSPECIFIED - Contact with and (suspected) exposure to COVID-19 - Viral infection, unspecified - Nicotine dependence, unspecified, uncomplicated - Cough, unspecified - Essential (primary) hypertension 05/11/2021 07:55 [facility] [place] TYPE: Emergency COMPLAINT: - [...] to COVID-19 - Dehydration 02/08/2021 03:22 [facility] [place] TYPE: Emergency COMPLAINT: - SKIN PROBLEM DIAGNOSES: - Nicotine dependence, unspecified, uncomplicated - Dermatitis, unspecified - Pain in right hand INPATIENT VISIT TRACKING (12 MO.) No inpatient visits to display in this time frame [id number]
[2022-01-23] MEDS ORDERED: CEPHALEXIN500 M1 PO (02:54)
== END 2022-01-23 03:47 | disposition home or self-care (01) ==
LOC: ED 02:02
DX: L03.114 Cellulitis of left upper limb (principal); I10 Essential (primary) hypertension; F17.200 Nicotine dependence, unspecified, uncomplicated
CPT/HCPCS: 73130; 99283-25; A9270

== ENCOUNTER 2022-01-28 17:48 | Inpatient (IN) | payer MEDICARE, OTHER ==
[~2022-01-28] VITALS: Ht 162.6 cm; Wt 52.5 kg
[~2022-01-28 17:48] MED LIST changes: +CEPHALEXIN500 M1 PO
--- OUTSIDE RECORDS SUMMARY | 2022-01-28 17:56 | XMS ---
PreManage Notification: VALENTINO SORTO Security Underwriting Director Events No recent Security Events currently on file CRITERIA MET - [facility] - 2 Visits in 30 Days - 6 ED Visits in 6 Months - Group Notification CARE PROVIDERS HARI [facility] 01/24/2020-Current PHONE: [phone] [place] has no Care Guidelines for this patient. Care History Medical/Surgical 09/02/2021 [facility] - MULTIPLE ATTEMPTS TO CONTACT PATIENT - - PATIENT HAS DECLINED COMMUNITY COUNSELING SOLUTIONS HELP- MULTIPLE ATTEMPTS HAVE BEEN MADE AND PATIENT DECLINES EVERY TIME. - PATIENT HAS DECLINED HELP FROM KATHLEEN - PATIENT IS ABLE TO GO TO THE DAY CENTER THAT KATHLEEN PROVIDES. 11/27/2020 [facility] - KATHLEEN HELPED PATIENT WITH TREATMENT PLACEMENT AT [facility] - PATIENT WAS AT TREATMENT FACILITY AND LEFT AMA BY FOOT - PATIENT IS BACK IN THE AREA AND KATHLEEN HAS NO WAY OF CONTACTING PATIENT - IF PATIENT IS SEEN IN THE ED AGAIN-PLEASE ASK IF PATIENT WOULD BE OKAY WITH KATHLEEN BEING CONTACTED. 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 Mele VISIT COUNT (12 MO.) [address] [facility] TOTAL 20 NOTE: Visits indicate total known visits. ED/UCC VISIT TRACKING (12 MO.) 01/28/2022 17:49 [facility] [place] TYPE: Emergency COMPLAINT: - PAIN 01/25/2022 08:28 [facility] [place] TYPE: Emergency COMPLAINT: - BODY PART SWELLING 01/23/2022 02:03 [facility] [place] TYPE: Emergency COMPLAINT: - HAND SWELLING DIAGNOSES: - Cellulitis of left upper limb - Nicotine dependence, unspecified, uncomplicated - Pain in left hand - Essential (primary) hypertension 01/13/2022 20:46 [facility] [place] TYPE: Emergency [...] - Periapical abscess without sinus 11/12/2021 20:[address] [facility] [address] [place] TYPE: Emergency COMPLAINT: - DIFFICULTY BREATHING DIAGNOSES: - Essential (primary) hypertension - Nicotine dependence, unspecified, uncomplicated - Other detention (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 - Anemia, unspecified - Cough, unspecified - Pneumonia, unspecified organism 11/12/2021 04:[address] [facility] [address] [place] TYPE: Emergency COMPLAINT: - MEDICAL CLEARANCE DIAGNOSES: - Pneumonia, unspecified organism - Contact with and (suspected) exposure to COVID-19 - Cough, unspecified - Anemia, unspecified - Essential (primary) hypertension - Nicotine dependence, unspecified, uncomplicated 09/22/2021 20:[address] [facility] [address] [place] TYPE: Emergency COMPLAINT: - VOMITING DIAGNOSES: - Nicotine dependence, unspecified, uncomplicated - Essential (primary) hypertension - Other technician terminal and repeater (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 - Vomiting, unspecified 09/21/2021 01:40 [facility] [place] TYPE: Emergency COMPLAINT: - SHORTNESS OF BREATH DIAGNOSES: - Shortness of breath - Nicotine dependence, unspecified, uncomplicated - Essential (primary) hypertension - Other stimulant abuse, uncomplicated 09/15/2021 06:29 [facility] [place] TYPE: Emergency COMPLAINT: - JOINT PAIN DIAGNOSES: - Myalgia, unspecified site - Pain in unspecified joint - Essential (primary) hypertension - Nicotine dependence, unspecified, uncomplicated 09/01/2021 16:[address] [facility] [address] [place] TYPE: Emergency COMPLAINT: - PAIN DIAGNOSES: - Essential (primary) hypertension - Schizoaffective disorder, unspecified - Allergy status to other drugs, medicaments and biological substances - Nicotine dependence, unspecified, uncomplicated 08/27/2021 04:34 [facility] [place] TYPE: Emergency COMPLAINT: - HYPOTHERMIC DIAGNOSES: - Other stimulant abuse, uncomplicated - Essential (primary) hypertension - Other forms of stomatitis - Nicotine dependence, unspecified, uncomplicated - Schizoaffective disorder, unspecified 07/13/2021 21:24 [facility] [place] TYPE: Emergency COMPLAINT: - ABDOM PAIN DIAGNOSES: - Essential (primary) hypertension - Nicotine dependence, unspecified, uncomplicated - Dizziness and giddiness 07/02/2021 09:03 [facility] [place] TYPE: Emergency COMPLAINT: - COUGH, FEVER, SOB DIAGNOSES: - Acute bronchitis, unspecified - Contact with and (suspected) exposure to COVID-19 - Nicotine dependence, unspecified, uncomplicated - Dyspnea, unspecified - Essential (primary) hypertension 05/18/2021 08:[address] [facility] [address] [place] TYPE: Emergency COMPLAINT: - DIZZY, CHILLS, [...] visits to display in this time frame [id number]
[2022-01-28] MEDS ORDERED: CEPHALEXIN500 MG PO (18:46)
[2022-01-31] MEDS ORDERED: BACTRIM DS TAB1 EACH PO (12:51)
[2022-01-31] MEDS ORDERED: AMLODIPINE BESYL5 MG PO (12:52)
== END 2022-01-31 12:53 | disposition home or self-care (01) | DRG 603 ==
LOC: ED 17:48 → MS 21:43
PROVIDERS: ADMIT Internal Medicine; ATTEND Internal Medicine
DX: L03.114 Cellulitis of left upper limb (principal); M65.9 Synovitis and tenosynovitis, unspecified; Z20.822 Contact with and (suspected) exposure to COVID-19; I10 Essential (primary) hypertension; F15.10 Other stimulant abuse, uncomplicated; R47.1 Dysarthria and anarthria; L03.012 Cellulitis of left finger; F25.9 Schizoaffective disorder, unspecified; F17.210 Nicotine dependence, cigarettes, uncomplicated; Z98.890 Other specified postprocedural states; Z79.2 Long term (current) use of antibiotics
CPT/HCPCS: 36415; 73130; 80048; 80053; 80202; 81001; 84550; 85025; 85651; 86140; 87502; 96365; 97110; 97165; 97535; 99284-25; A9270; J1650; J3370; J7060; J7121; U0003

== ENCOUNTER 2022-02-15 01:41 | Emergency (ER) | payer MEDICARE, OTHER ==
[~2022-02-15] VITALS: Ht 162.6 cm; Wt 49.0 kg
[~2022-02-15 01:41] MED LIST changes: +AMLODIPINE BESYL5 MG PO
--- OUTSIDE RECORDS SUMMARY | 2022-02-15 01:45 | XMS ---
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 - Patient with suicidal and/or homicidal ideations eloped. - Patient eloped with IV in place. Details: PATIENT LWBS CRITERIA MET - [facility] - 2 Visits in 30 Days - 6 ED Visits in 6 Months - Group Notification CARE PROVIDERS [facility] 01/24/2020-Current PHONE: [phone] [place] has no Care Guidelines for this [...] KATHLEEN HELPED PATIENT WITH TREATMENT PLACEMENT AT [facility] - PATIENT WAS AT TREATMENT FACILITY AND LEFT AMA BY FOOT - PATIENT IS BACK IN THE AREA AND KATHLEEN HAS NO WAY OF CONTACTING PATIENT - IF PATIENT IS SEEN IN THE ED AGAIN-PLEASE ASK IF PATIENT WOULD BE OKAY WITH KATHLEEN BEING CONTACTED. 11/14/2020 [facility] - PATIENT HAS DECLINED TREATMENT HELP/PLACEMENT DUE TO LOCATION IN [place] - PATIENT HAS A JUVENILE OFFICER-TRAVIS - HARD TO FIND PLACEMENT/HELP FOR PATIENT IN THE AREA DUE TO PATIENT PAST - IF PATIENT IS WILLING TO ACCEPT HELP WITH TREATMENT PLEASE CONTACT COPES. Shabazz VISIT COUNT (12 MO.) 25 LAHSAY Delgado TOTAL 25 NOTE: Visits indicate total known visits. ED/UCC VISIT TRACKING (12 MO.) 02/15/2022 01:41 [facility] [place] TYPE: Emergency COMPLAINT: - WEAKNESS 02/10/2022 06:38 [facility] [place] TYPE: Emergency COMPLAINT: - LT HAND PAIN 02/05/2022 12:54 [facility] [place] TYPE: Emergency COMPLAINT: - HANDS PAIN 02/04/2022 11:03 [facility] [place] TYPE: Emergency COMPLAINT: - HANDS PAIN 02/03/2022 19:04 [facility] [place] TYPE: Emergency COMPLAINT: - MULTIPLE COMPLAINTS 02/03/2022 11:19 [facility] [place] TYPE: Emergency COMPLAINT: - HAND PAIN 01/28/2022 17:49 [facility] [place] TYPE: Emergency [...] - Periapical abscess without sinus 11/12/2021 20:[address] [facility] [address] [facility] [place] TYPE: Emergency COMPLAINT: - DIFFICULTY BREATHING DIAGNOSES: - Essential (primary) hypertension - Nicotine dependence, unspecified, uncomplicated - Other assistant terminal manager (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 - Anemia, unspecified - [...] uncomplicated - Essential (primary) hypertension - Other assistant terminal manager (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 - Vomiting, unspecified 09/21/2021 [...] dependence, unspecified, uncomplicated - Dizziness and giddiness Plus 5 More Visits INPATIENT VISIT TRACKING (12 MO.) 01/28/2022 21:[address] [facility] [place] TYPE: Medical Surgical COMPLAINT: - CELLULITIS DIAGNOSES: - Cellulitis of left finger - Cellulitis of left finger - Contact with and (suspected) exposure to COVID-19 - Cellulitis of left upper limb - Other specified postprocedural states - Other specified postprocedural states - Schizoaffective disorder, unspecified - MCFP (current) use of antibiotics - Synovitis and tenosynovitis, unspecified - Other stimulant abuse, uncomplicated - Other stimulant abuse, uncomplicated - Synovitis and tenosynovitis, unspecified - MCFP (current) use of antibiotics - Dysarthria and anarthria - Nicotine dependence, cigarettes, uncomplicated - Contact with and (suspected) exposure to COVID-19 - Dysarthria and anarthria - Essential (primary) hypertension - Schizoaffective disorder, unspecified - Essential (primary) hypertension - Nicotine dependence, cigarettes, uncomplicated [email or web address]
== END 2022-02-15 02:43 | disposition home or self-care (01) ==
LOC: ED 01:41
DX: F15.10 Other stimulant abuse, uncomplicated (principal); D64.9 Anemia, unspecified; I10 Essential (primary) hypertension; F17.200 Nicotine dependence, unspecified, uncomplicated; Z79.899 Other long term (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
CPT/HCPCS: 36415; 80048; 85025; 99284

== ENCOUNTER 2022-03-07 01:11 | Emergency (ER) | payer MEDICARE, OTHER ==
[~2022-03-07] VITALS: Ht 162.6 cm; Wt 49.0 kg
--- OUTSIDE RECORDS SUMMARY | 2022-03-07 01:18 | XMS ---
PreManage Notification: VALENTINO SORTO Security Certified Indoor Environmentalist Events 2 event(s) in the past 18 months Most recent security events: Elopement at [facility] 02/04/2022 11:03 - Patient eloped before treatment completed. - Patient with suicidal and/or homicidal ideations eloped. - Patient eloped with IV in place. Details: PATIENT LWBS Elopement at [facility] 01/25/2022 08:28 - Patient eloped before treatment completed. - Patient with suicidal and/or homicidal ideations eloped. - Patient eloped with IV in place. Details: PATIENT LWBS CRITERIA MET - Group Notification - 6 ED Visits in 6 Months [facility] - 2 Visits in 30 Days CARE PROVIDERS [facility] [place] [facility] 01/24/2020-Current PHONE: [phone] [place] has no Care Guidelines for this patient. Care History Medical/Surgical 09/02/2021 [facility] - MULTIPLE ATTEMPTS TO CONTACT PATIENT - - PATIENT HAS DECLINED COMMUNITY COUNSELING SOLUTIONS HELP- MULTIPLE ATTEMPTS HAVE BEEN MADE AND PATIENT DECLINES EVERY TIME. - PATIENT HAS DECLINED HELP FROM KATHLEEN - PATIENT IS ABLE TO GO TO THE DAY CENTER THAT KATHLEEN PROVIDES. 11/27/2020 [facility] - KATHLEEN HELPED PATIENT WITH TREATMENT PLACEMENT AT [facility] - PATIENT WAS AT TREATMENT FACILITY AND LEFT AMA BY FOOT - PATIENT IS BACK IN THE AREA AND KATHLEEN HAS NO WAY OF CONTACTING PATIENT - IF PATIENT IS SEEN IN THE ED AGAIN-PLEASE ASK IF PATIENT WOULD BE OKAY WITH KATHLEEN BEING CONTACTED. 11/14/2020 [facility] - PATIENT HAS DECLINED TREATMENT HELP/PLACEMENT DUE TO LOCATION IN [place] - PATIENT HAS A VP ANALYSIS-TRAVIS - HARD TO FIND PLACEMENT/HELP FOR PATIENT IN THE AREA DUE TO PATIENT PAST - IF PATIENT IS WILLING TO ACCEPT HELP WITH TREATMENT PLEASE CONTACT COPES. Shabazz VISIT COUNT (12 MO.) [address] [facility] T[facility] 28 NOTE: Visits indicate total known visits. ED/C VISIT TRACKING (12 MO.) 03/07/2022 01:[address] [facility] [facility] TYPE: Emergency COMPLAINT: - ARM PAIN [facility]22 [facility] DIAGNOSES: - Pruritus, unspecified - med refill - Medication Refill 03/01/2022 17:[facility] DIAGNOSES: - Dermatitis, unspecified - Other skin changes - Hand Swelling - foot issue - Hallucinations 02/15/2022 01:[address] [facility] [address] [facility] [place] TYPE: Emergency COMPLAINT: - WEAKNESS DIAGNOSES: - Essential (primary) hypertension - Anemia, unspecified - Other vermin exterminator (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 - Other stimulant abuse, uncomplicated - Nicotine dependence, unspecified, uncomplicated 02/10/2022 06:[address] [facility] [address] [facility] [place] TYPE: Emergency COMPLAINT: - LT HAND PAIN 02/05/2022 12:[address] [facility] [address] [facility] [place] TYPE: Emergency COMPLAINT: - HANDS PAIN 02/04/2022 11:[address] [facility] [address] [facility] [place] TYPE: Emergency COMPLAINT: - HANDS PAIN 02/03/2022 19:[address] [facility] [address] [facility] [place] TYPE: Emergency COMPLAINT: - MULTIPLE COMPLAINTS 02/03/2022 11:19 [facility] [place] TYPE: Emergency COMPLAINT: - HAND PAIN 01/28/2022 17:49 [facility] [place] TYPE: Emergency COMPLAINT: - PAIN 01/25/2022 08:28 [facility] [place] TYPE: Emergency COMPLAINT: - BODY PART SWELLING 01/23/2022 02:03 [facility] [place] [place] COMPLAINT: - HAND SWELLING DIAGNOSES: - Cellulitis of left upper limb - Nicotine dependence, unspecified, uncomplicated - Pain in left hand - Essential (primary) hypertension 01/13/2022 20:46 [facility] [place] TYPE: Emergency COMPLAINT: - EXTREMITY PAIN [...] - Nicotine dependence, unspecified, uncomplicated - Other fdc (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 - Anemia, unspecified - Cough, unspecified - Pneumonia, unspecified organism 11/12/2021 04:27 [facility] [place] TYPE: Emergency COMPLAINT: - MEDICAL CLEARANCE DIAGNOSES: - Pneumonia, unspecified organism - Contact with and (suspected) exposure to COVID-19 - Cough, unspecified - Anemia, unspecified - Essential (primary) hypertension - Nicotine dependence, unspecified, uncomplicated 09/22/2021 20:55 [facility] [place] TYPE: Emergency COMPLAINT: - VOMITING DIAGNOSES: - Nicotine dependence, unspecified, uncomplicated - Essential (primary) hypertension - Other vermin exterminator (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 - Vomiting, unspecified 09/21/2021 01:40 [facility] [place] [facility] COMPLAINT: - SHORTNESS OF BREATH DIAGNOSES: - Shortness of breath - Nicotine dependence, unspecified, uncomplicated - Essential (primary) hypertension - Other stimulant abuse, uncomplicated 09/15/2021 06:29 [facility] [place] TYPE: Emergency COMPLAINT: - JOINT PAIN DIAGNOSES: - Myalgia, unspecified site - Pain in unspecified joint - Essential (primary) hypertension - Nicotine dependence, unspecified, uncomplicated Plus 8 More Visits INPATIENT VISIT TRACKING (12 MO.) 01/28/2022 21:[address] [facility] [place] TYPE: Medical Surgical COMPLAINT: - CELLULITIS DIAGNOSES: - Cellulitis of left finger - Cellulitis of left finger - Contact with and (suspected) exposure to COVID-19 - Cellulitis of left upper limb - Other specified postprocedural states - Other specified postprocedural states - Schizoaffective disorder, unspecified - medical terminologist (current) use of antibiotics - Synovitis and tenosynovitis, unspecified - Other stimulant abuse, uncomplicated - Other stimulant abuse, uncomplicated - Synovitis and tenosynovitis, unspecified - medical terminologist (current) use of antibiotics - Dysarthria and anarthria - Nicotine dependence, cigarettes, uncomplicated - Contact with and (suspected) exposure to COVID-19 - Dysarthria and anarthria - Essential (primary) hypertension - Schizoaffective disorder, unspecified - Essential (primary) hypertension - Nicotine dependence, cigarettes, uncomplicated [email or web address]
[2022-03-07] MEDS ORDERED: BETAMETHASONE D15 G2 TOP (01:22)
== END 2022-03-07 02:32 | disposition home or self-care (01) ==
LOC: ED 01:11
DX: F15.10 Other stimulant abuse, uncomplicated (principal); I10 Essential (primary) hypertension; F17.200 Nicotine dependence, unspecified, uncomplicated; Z79.899 Other long term (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
CPT/HCPCS: 36415; 80053; 85025; 99284

== ENCOUNTER 2022-03-10 13:58 | Emergency (ER) | payer MEDICARE, OTHER ==
[~2022-03-10] VITALS: Ht 162.6 cm; Wt 49.0 kg
[~2022-03-10 13:58] MED LIST changes: +BETAMETHASONE D15 G2 TOP
--- OUTSIDE RECORDS SUMMARY | 2022-03-10 14:07 | XMS ---
PreManage Notification: VALENTINO SORTO Security Operational Risk Manager Events 2 event(s) in the past 18 months Most recent security events: Elopement at [facility] 02/04/2022 11:03 - Patient eloped before treatment completed. - Patient with suicidal and/or homicidal ideations eloped. - Patient eloped with IV in place. Details: PATIENT LWBS Elopement at [facility] 01/25/2022 08:28 - Patient eloped before treatment completed. - Patient with suicidal and/or homicidal ideations eloped. - Patient eloped with IV in place. Details: PATIENT LWBS CRITERIA MET - Group Notification - [facility] - 2 Visits in 30 Days - 6 ED Visits in 6 Months CARE PROVIDERS [facility] 01/24/2020-Current PHONE: [phone] [place] has no Care Guidelines for this patient. Care History Medical/Surgical 09/02/2021 [facility] - MULTIPLE ATTEMPTS TO CONTACT PATIENT - - PATIENT HAS DECLINED COMMUNITY COUNSELING SOLUTIONS HELP- MULTIPLE ATTEMPTS HAVE BEEN MADE AND PATIENT DECLINES EVERY TIME. - PATIENT HAS DECLINED HELP FROM KATHLEEN - PATIENT IS ABLE TO GO TO THE DAY CENTER THAT KATHLEEN PROVIDES. 11/27/2020 [facility] - KATHLEEN HELPED PATIENT WITH TREATMENT PLACEMENT AT [facility] - PATIENT WAS AT TREATMENT FACILITY AND LEFT AMA BY FOOT - PATIENT IS BACK IN THE AREA AND KATHLEEN HAS NO WAY OF CONTACTING PATIENT - IF PATIENT IS SEEN IN THE ED AGAIN-PLEASE ASK IF PATIENT WOULD BE OKAY WITH KATHLEEN BEING CONTACTED. 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 Shabazz VISIT COUNT (12 MO.) [address] [facility] TOTAL 29 NOTE: Visits indicate total known visits. ED/C VISIT TRACKING (12 MO.) 03/10/2022 13:59 [facility] TYPE: Emergency COMPLAINT: - MOUTH, THROAT, HANDS PAIN 03/07/2022 01:12 [facility] [place] TYPE: Emergency COMPLAINT: - ARM PAIN [facility] DIAGNOSES: - med refill - Medication Refill - Pruritus, unspecified 03/01/2022 17:[facility] DIAGNOSES: - foot issue - Other skin changes - Hallucinations - Hand Swelling - Dermatitis, unspecified 02/15/2022 01:41 [facility] [place] [facility]: Emergency COMPLAINT: - WEAKNESS DIAGNOSES: - Other stimulant abuse, uncomplicated - Anemia, unspecified - Nicotine dependence, unspecified, uncomplicated - Other assisted (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 - Essential (primary) hypertension 02/10/2022 06:38 [facility] [place] TYPE: Emergency [...] Emergency COMPLAINT: - HAND SWELLING DIAGNOSES: - Essential (primary) hypertension - Nicotine dependence, unspecified, uncomplicated - Pain in left hand - Cellulitis of left upper limb 01/13/2022 20:46 [facility] [place] [facility] TYPE: Emergency COMPLAINT: - EXTREMITY PAIN DIAGNOSES: - Essential (primary) hypertension - Unspecified parasitic disease - Diarrhea, unspecified - Anemia, unspecified - Nicotine dependence, unspecified, uncomplicated 01/04/2022 23:40 [facility] [place] TYPE: Emergency COMPLAINT: - WEAKNESS 01/03/2022 05:43 [facility] [place] [facility] [place] TYPE: Emergency COMPLAINT: - DENTAL PAIN DIAGNOSES: - Periapical abscess without sinus - Anemia, unspecified - Essential (primary) hypertension - Nicotine dependence, unspecified, uncomplicated 11/12/2021 20:48 [facility] [place] TYPE: Emergency COMPLAINT: - DIFFICULTY BREATHING DIAGNOSES: - Pneumonia, unspecified organism - Anemia, unspecified - Nicotine dependence, unspecified, uncomplicated - Cough, unspecified - Other principal archaeologist (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 - Essential (primary) hypertension 11/12/2021 04:27 [facility] [place] TYPE: Emergency COMPLAINT: - MEDICAL CLEARANCE DIAGNOSES: - Nicotine dependence, unspecified, uncomplicated - Anemia, unspecified - Contact with and (suspected) exposure to COVID-19 - Essential (primary) hypertension - Cough, unspecified - Pneumonia, unspecified organism 09/22/2021 20:55 [facility] [place] TYPE: Emergency COMPLAINT: - VOMITING DIAGNOSES: - Vomiting, unspecified - Essential (primary) hypertension - Other principal archaeologist (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 - Nicotine dependence, unspecified, uncomplicated 09/21/2021 01:40 [facility] [place] TYPE: Emergency COMPLAINT: - SHORTNESS OF BREATH DIAGNOSES: - Other stimulant abuse, uncomplicated - Nicotine dependence, unspecified, uncomplicated - Essential (primary) hypertension - Shortness of breath Plus 9 More Visits INPATIENT VISIT TRACKING (12 MO.) 01/28/2022 21:[address] [facility] [place] TYPE: Medical Surgical COMPLAINT: - CELLULITIS DIAGNOSES: - Nicotine dependence, cigarettes, uncomplicated - gifted teacher (current) use of antibiotics - Dysarthria and anarthria - Other stimulant abuse, uncomplicated - Schizoaffective disorder, unspecified - Contact with and (suspected) exposure to COVID-19 - Cellulitis of left finger - Nicotine dependence, cigarettes, uncomplicated - Other specified postprocedural states - Dysarthria and anarthria - Schizoaffective disorder, unspecified - Contact with and (suspected) exposure to COVID-19 - Synovitis and tenosynovitis, unspecified - Essential (primary) hypertension - Cellulitis of left finger - Other stimulant abuse, uncomplicated - Essential (primary) hypertension - Cellulitis of left upper limb - senior living (current) use of antibiotics - Synovitis and tenosynovitis, unspecified - Other specified postprocedural states [email or web address]
[2022-03-10] MEDS ORDERED: CEPHALEXIN500 M1 PO (16:37)
== END 2022-03-10 16:46 | disposition home or self-care (01) ==
LOC: ED 13:58
DX: R20.2 Paresthesia of skin (principal); R23.4 Changes in skin texture; F15.10 Other stimulant abuse, uncomplicated; I10 Essential (primary) hypertension; F17.200 Nicotine dependence, unspecified, uncomplicated; Z79.899 Other long term (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
CPT/HCPCS: 99284

== ENCOUNTER 2022-03-14 16:57 | Emergency (ER) | payer MEDICARE, OTHER ==
[~2022-03-14] VITALS: Ht 162.6 cm; Wt 49.0 kg
--- OUTSIDE RECORDS SUMMARY | 2022-03-14 17:04 | XMS ---
PreManage Notification: VALENTINO SORTO Security Lead Systems Analyst Events 2 event(s) in the past 18 months Most recent security events: Elopement at [facility] 02/04/2022 11:03 - Patient eloped before treatment completed. - Patient with suicidal and/or homicidal ideations eloped. - Patient eloped with IV in place. Details: PATIENT LWBS Elopement at [facility] 01/25/2022 08:28 - Patient eloped before treatment completed. - Patient with suicidal and/or homicidal ideations eloped. - Patient eloped with IV in place. Details: PATIENT LW CRITERIA MET - [facility] - 2 Visits in 30 Days - [facility] - Has Care Guidelines - 6 ED Visits in 6 Months - Group Notification CARE PROVIDERS [facility] 01/24/2020-Current PHONE: [phone] [place] has no Care Guidelines for this patient. Care History Medical/Surgical 03/11/2022 [facility] ALERT KATHLEEN HAS BEEN TRYING TO CONTACT PATIENT. IF PATIENT IS SEEN IN THE ED PLEASE CONTACT KATHLEEN CRISIS LINE [phone]. KATHLEEN HAS A PHONE TO PROVIDE TO THE PATIENT. PLEASE LET PATIENT KNOW. KATHLEEN IS TRYING TO HELP WITH HOUSING RESOURCES AND WOULD LIKE TO FURTHER ASSIST. 09/02/2021 [facility] - MULTIPLE ATTEMPTS TO CONTACT PATIENT - - PATIENT HAS DECLINED COMMUNITY COUNSELING SOLUTIONS HELP- MULTIPLE ATTEMPTS HAVE BEEN MADE AND PATIENT DECLINES EVERY TIME. - PATIENT HAS DECLINED HELP FROM KATHLEEN - PATIENT IS ABLE TO GO TO THE DAY CENTER THAT KATHLEEN PROVIDES. 11/27/2020 [facility] - KATHLEEN HELPED PATIENT WITH TREATMENT PLACEMENT AT [facility] - PATIENT WAS AT TREATMENT FACILITY AND LEFT AMA BY FOOT - PATIENT IS BACK IN THE AREA AND KATHLEEN HAS NO WAY OF CONTACTING PATIENT - IF PATIENT IS SEEN IN THE ED AGAIN-PLEASE ASK IF PATIENT WOULD BE OKAY WITH KATHLEEN BEING CONTACTED. E.D. VISIT COUNT (12 MO.) 2 [facility] 28 [facility]. TOTAL 30 NOTE: Visits indicate total known visits. ED/C VISIT TRACKING (12 MO.) 03/14/2022 16:58 [facility] [place] TYPE: Emergency COMPLAINT: - SKIN PROBLEM 03/10/2022 13:59 [facility] [place] TYPE: Emergency COMPLAINT: - MOUTH, THROAT, HANDS PAIN DIAGNOSES: - Nicotine dependence, unspecified, uncomplicated - Other stimulant abuse, uncomplicated - Essential (primary) hypertension - Paresthesia of skin - Changes in skin texture - Other senior living (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 03/07/2022 01:12 [facility] [place] TYPE: Emergency COMPLAINT: - ARM PAIN DIAGNOSES: - Nicotine dependence, unspecified, uncomplicated - Other stimulant abuse, uncomplicated - Pain in right hand - Other senior living (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 - Essential (primary) hypertension [facility]22 [facility] DIAGNOSES: - med refill - Medication Refill - Pruritus, unspecified 03/01/2022 [facility] DIAGNOSES: - foot issue - Other skin changes - Hallucinations - Hand Swelling - Dermatitis, unspecified 02/15/2022 01:41 [facility] TYPE: Emergency COMPLAINT: - WEAKNESS DIAGNOSES: - Other stimulant abuse, uncomplicated - Anemia, unspecified - Nicotine dependence, unspecified, uncomplicated - Other ocean transportation intermediary (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 - Essential (primary) hypertension [...] of left upper limb 01/13/2022 20:46 [facility] [place] TYPE: Emergency COMPLAINT: - EXTREMITY PAIN DIAGNOSES: - Essential (primary) hypertension - Unspecified parasitic disease - Diarrhea, unspecified - Anemia, unspecified - Nicotine dependence, unspecified, uncomplicated 01/04/2022 23:[address] [facility] [place] TYPE: Emergency COMPLAINT: - WEAKNESS 01/03/2022 05:[address] [place] TYPE: Emergency COMPLAINT: - DENTAL PAIN DIAGNOSES: - Periapical abscess without sinus - Anemia, unspecified - Essential (primary) hypertension - Nicotine dependence, unspecified, uncomplicated 11/12/2021 20:[address] [facility] [place] TYPE: Emergency COMPLAINT: - DIFFICULTY BREATHING DIAGNOSES: - Anemia, unspecified - Nicotine dependence, unspecified, uncomplicated - Cough, unspecified - Other ocean transportation intermediary (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 - Essential (primary) hypertension - Pneumonia, unspecified organism 11/12/2021 04:[address] [facility] [address] [facility] [place] TYPE: Emergency COMPLAINT: - MEDICAL CLEARANCE DIAGNOSES: - Anemia, unspecified - Contact with and (suspected) exposure to COVID-19 - Essential (primary) hypertension - Cough, unspecified - Pneumonia, unspecified organism - Nicotine dependence, unspecified, uncomplicated 09/22/2021 20:55 [facility] [place] TYPE: Emergency COMPLAINT: - VOMITING DIAGNOSES: - Vomiting, unspecified - Essential (primary) hypertension - Other senior living (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 - Nicotine dependence, unspecified, uncomplicated Plus 10 More Visits INPATIENT VISIT TRACKING (12 MO.) 01/28/2022 21:43 [facility] [place] TYPE: Medical Surgical COMPLAINT: - CELLULITIS DIAGNOSES: - Other stimulant abuse, uncomplicated - Schizoaffective [...] - Cellulitis of left upper limb - terminologist (current) use of antibiotics - Synovitis and tenosynovitis, unspecified - Other specified postprocedural states - Nicotine dependence, cigarettes, uncomplicated - terminologist (current) use of antibiotics - Dysarthria and anarthria [email or web address]
[2022-03-14] MEDS ORDERED: BETAMETHASONE D15 G2 TOP (19:54)
== END 2022-03-14 20:07 | disposition home or self-care (01) ==
LOC: ED 16:57
DX: R21 Rash and other nonspecific skin eruption (principal); F22 Delusional disorders; F15.10 Other stimulant abuse, uncomplicated; F17.200 Nicotine dependence, unspecified, uncomplicated; I10 Essential (primary) hypertension; Z79.899 Other long term (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
CPT/HCPCS: 99284

== ENCOUNTER 2022-03-22 09:09 | Emergency (ER) | payer MEDICARE, OTHER ==
[~2022-03-22] VITALS: Ht 162.6 cm; Wt 49.0 kg
--- OUTSIDE RECORDS SUMMARY | 2022-03-22 09:14 | XMS ---
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 - Patient with suicidal and/or homicidal ideations eloped. - Patient eloped with IV in place. Details: PATIENT LWBS Elopement at [facility] 01/25/2022 08:28 - Patient eloped before treatment completed. - Patient with suicidal and/or homicidal ideations eloped. - Patient eloped with IV in place. Details: PATIENT LW CRITERIA MET - [facility] - Has Care Guidelines - 6 ED Visits in 6 Months - Group Notification - [facility] - 2 Visits in 30 Days CARE PROVIDERS JAMILA NORIEGA [facility] 01/24/2020-Current PHONE: [phone] [place] has no Care Guidelines for this patient. Care History Medical/Surgical 03/11/2022 [facility] ALERT KATHLEEN HAS BEEN TRYING TO CONTACT PATIENT. IF PATIENT IS SEEN IN THE ED PLEASE CONTACT KATHLEEN CRISIS LINE [phone]. KATHLEEN HAS A PHONE TO PROVIDE TO THE PATIENT. PLEASE LET PATIENT KNOW. KATHLEEN IS TRYING TO HELP WITH HOUSING RESOURCES AND WOULD LIKE TO FURTHER ASSIST. 09/02/2021 [facility] - MULTIPLE ATTEMPTS TO CONTACT PATIENT - - PATIENT HAS DECLINED COMMUNITY COUNSELING SOLUTIONS HELP- MULTIPLE ATTEMPTS HAVE BEEN MADE AND PATIENT DECLINES EVERY TIME. - PATIENT HAS DECLINED HELP FROM KATHLEEN - PATIENT IS ABLE TO GO TO THE DAY CENTER THAT KATHLEEN PROVIDES. 11/27/2020 [facility] - KATHLEEN HELPED PATIENT WITH TREATMENT PLACEMENT AT [facility] - PATIENT WAS AT TREATMENT FACILITY AND LEFT AMA BY FOOT - PATIENT IS BACK IN THE AREA AND KATHLEEN HAS NO WAY OF CONTACTING PATIENT - IF PATIENT IS SEEN IN THE ED AGAIN-PLEASE ASK IF PATIENT WOULD BE OKAY WITH KATHLEEN BEING CONTACTED. E.D. VISIT COUNT (12 MO.) 2 [facility] 29 [facility]. TOTAL 31 NOTE: Visits indicate total known visits. ED/C VISIT TRACKING (12 MO.) 03/22/2022 09:10 [facility] [place] TYPE: Emergency COMPLAINT: - EXTREMITY PAIN/INJURY 03/14/2022 16:58 [facility] [place] TYPE: Emergency COMPLAINT: - SKIN PROBLEM DIAGNOSES: - Essential (primary) hypertension - Disorder of the skin and subcutaneous tissue, unspecified - Other long term care pharmacist (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 - Rash and other nonspecific skin eruption - Nicotine dependence, unspecified, uncomplicated - Other stimulant abuse, uncomplicated - Delusional disorders 03/10/2022 13:59 [facility] [place] TYPE: Emergency COMPLAINT: - MOUTH, THROAT, HANDS PAIN DIAGNOSES: - Other long term care pharmacist (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 - Nicotine dependence, unspecified, uncomplicated - Other stimulant abuse, uncomplicated - Essential (primary) hypertension - Paresthesia of skin - Changes in skin texture 03/07/2022 01:12 [facility] Pyle TYPE: Emergency COMPLAINT: - ARM PAIN DIAGNOSES: - Nicotine dependence, unspecified, uncomplicated - Other stimulant abuse, uncomplicated - Pain in right hand - Other long term care pharmacist (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 - Essential (primary) hypertension [facility] DIAGNOSES: - med refill - Medication Refill - Pruritus, unspecified [facility]22 [facility] DIAGNOSES: - foot issue - Other skin changes - Hallucinations - Hand Swelling - Dermatitis, unspecified 02/15/2022 01:41 [facility] [place] TYPE: Emergency COMPLAINT: - WEAKNESS DIAGNOSES: - Other stimulant abuse, uncomplicated - Anemia, unspecified - Nicotine dependence, unspecified, uncomplicated - Other long term care pharmacist (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 - Essential (primary) hypertension [...] Nicotine dependence, unspecified, uncomplicated 01/04/2022 23:40 [facility] [place] TYPE: Emergency COMPLAINT: - WEAKNESS 01/03/2022 05:43 [facility] [place] TYPE: Emergency COMPLAINT: - DENTAL PAIN DIAGNOSES: - Periapical abscess without sinus - Anemia, unspecified - Essential (primary) hypertension - Nicotine dependence, unspecified, uncomplicated 11/12/2021 20:48 [facility] [place] TYPE: Emergency COMPLAINT: - DIFFICULTY BREATHING DIAGNOSES: - Pneumonia, unspecified organism - Anemia, unspecified - Nicotine dependence, unspecified, uncomplicated - Cough, unspecified - Other correction (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 - Essential (primary) hypertension 11/12/2021 04:27 [facility] [place] TYPE: Emergency COMPLAINT: - MEDICAL CLEARANCE DIAGNOSES: - Nicotine dependence, unspecified, uncomplicated - Anemia, unspecified - Contact with and (suspected) exposure to COVID-19 - Essential (primary) hypertension - Cough, unspecified - Pneumonia, unspecified organism Plus 11 More Visits INPATIENT VISIT TRACKING (12 MO.) 01/28/2022 21:43 [facility] [place] TYPE: Medical Surgical COMPLAINT: - CELLULITIS DIAGNOSES: - residential (current) use of antibiotics - Dysarthria and [...] - Cellulitis of left upper limb - long term care pharmacist (current) use of antibiotics - Synovitis and tenosynovitis, unspecified - Other specified postprocedural states - Nicotine dependence, cigarettes, uncomplicated [email or web address]
[2022-03-22] MEDS ORDERED: PREDNISONE20 MG PO (09:37)
== END 2022-03-22 09:46 | disposition home or self-care (01) ==
LOC: ED 09:09
DX: M79.89 Other specified soft tissue disorders (principal); I10 Essential (primary) hypertension; F17.200 Nicotine dependence, unspecified, uncomplicated; Z79.899 Other long term (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
CPT/HCPCS: 99283; J7512

== ENCOUNTER 2022-10-13 11:39 | Emergency (ER) | payer MEDICARE ==
[~2022-10-13] VITALS: Ht 162.6 cm; Wt 53.4 kg
--- OUTSIDE RECORDS SUMMARY | 2022-10-13 11:46 | XMS ---
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 - Patient with suicidal and/or homicidal ideations eloped. - Patient eloped with IV in place. Details: PATIENT LWBS Elopement at [facility] 02/04/2022 11:03 - Patient eloped before treatment completed. - Patient with suicidal and/or homicidal ideations eloped. - Patient eloped with IV in place. Details: PATIENT LWBS Elopement at [facility] 01/25/2022 08:28 - Patient eloped before treatment completed. - Patient with suicidal and/or homicidal ideations eloped. - Patient eloped with IV in place. Details: PATIENT LWBS CRITERIA MET - [facility] - Has Care Guidelines - Group Notification CARE PROVIDERS HARI [facility] 01/24/2020-Current PHONE: [phone] [place] has no Care Guidelines for this patient. Care History Medical/Surgical 03/11/2022 [facility] ALERT KATHLEEN HAS BEEN TRYING TO CONTACT PATIENT. IF PATIENT IS SEEN IN THE ED PLEASE CONTACT KATHLEEN CRISIS LINE [phone]. KATHLEEN HAS A PHONE TO PROVIDE TO THE PATIENT. PLEASE LET PATIENT KNOW. KATHLEEN IS TRYING TO HELP WITH HOUSING RESOURCES AND WOULD LIKE TO FURTHER ASSIST. 09/02/2021 [facility] - MULTIPLE ATTEMPTS TO CONTACT PATIENT - - PATIENT HAS DECLINED COMMUNITY COUNSELING SOLUTIONS HELP- MULTIPLE ATTEMPTS HAVE BEEN MADE AND PATIENT DECLINES EVERY TIME. - PATIENT HAS DECLINED HELP FROM KATHLEEN - PATIENT IS ABLE TO GO TO THE DAY CENTER THAT KATHLEEN PROVIDES. 11/27/2020 [facility] - KATHLEEN HELPED PATIENT WITH TREATMENT PLACEMENT AT [facility] - PATIENT WAS AT TREATMENT FACILITY AND LEFT AMA BY FOOT - PATIENT IS BACK IN THE AREA AND KATHLEEN HAS NO WAY OF CONTACTING PATIENT - IF PATIENT IS SEEN IN THE ED AGAIN-PLEASE ASK IF PATIENT WOULD BE OKAY WITH KATHLEEN BEING CONTACTED. [place] VISIT COUNT (12 MO.) 2 [facility] 19 [facility]. TOTAL 21 NOTE: Visits indicate total known visits. ED/UCC VISIT TRACKING (12 MO.) 10/13/2022 11:40 [facility] [place] TYPE: Emergency COMPLAINT: - MOUTH, HANDS, FEET PAIN, HEADACHE 03/22/2022 09:10 [facility] [place] TYPE: Emergency COMPLAINT: - EXTREMITY PAIN/INJURY DIAGNOSES: - Other specified soft tissue disorders - Other long distance billing operator (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 - Nicotine dependence, unspecified, uncomplicated - Essential (primary) hypertension 03/14/2022 16:58 [facility] [place] TYPE: Emergency COMPLAINT: - SKIN PROBLEM DIAGNOSES: - Rash and other nonspecific skin eruption - Nicotine dependence, unspecified, uncomplicated - Other stimulant abuse, uncomplicated - Delusional disorders - Essential (primary) hypertension - Disorder of the skin and subcutaneous tissue, unspecified - Other fdc (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 03/10/2022 13:59 [facility] TYPE: Emergency COMPLAINT: - MOUTH, THROAT, HANDS PAIN DIAGNOSES: - Essential (primary) hypertension - Paresthesia of skin - Changes in skin texture - Other long distance billing operator (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 - Nicotine dependence, unspecified, uncomplicated - Other stimulant abuse, uncomplicated 03/07/2022 01:12 [facility] Pyle TYPE: Emergency COMPLAINT: - ARM PAIN DIAGNOSES: - Pain in right hand - Other fdc (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 - Essential (primary) hypertension - Nicotine dependence, unspecified, uncomplicated - Other stimulant abuse, uncomplicated 03/03/2022 13:25 [facility] Radha ROSARIO TYPE: Emergency DIAGNOSES: - Medication Refill - Pruritus, unspecified - med refill 03/01/2022 17:46 [facility]inoa [facility] TYPE: Emergency DIAGNOSES: - Hallucinations - Hand Swelling - Dermatitis, unspecified - foot issue - Other skin changes 02/15/2022 01:41 [facility] [place] TYPE: Emergency COMPLAINT: - WEAKNESS DIAGNOSES: - Nicotine dependence, unspecified, uncomplicated - Other long distance billing operator (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 - Essential (primary) hypertension - Other stimulant abuse, uncomplicated - Anemia, unspecified 02/10/2022 06:38 [facility] [place] TYPE: Emergency [...] TYPE: Emergency COMPLAINT: - PAIN 01/25/2022 08:28 [facility] [place] [place]: [place] COMPLAINT: - BODY PART SWELLING 01/23/2022 02:[address] [facility] [address] [facility] [place] TYPE: Emergency COMPLAINT: - HAND SWELLING DIAGNOSES: - Pain in left hand - Cellulitis of left upper limb - Essential (primary) hypertension - Nicotine dependence, unspecified, uncomplicated 01/13/2022 20:[address] [facility] [address] [facility] [place] TYPE: Emergency COMPLAINT: - EXTREMITY PAIN DIAGNOSES: - Diarrhea, unspecified - Anemia, unspecified - Nicotine dependence, unspecified, uncomplicated - Essential (primary) hypertension - Unspecified parasitic disease 01/04/2022 23:[address] [facility] [address] [facility] [place] TYPE: Emergency COMPLAINT: - WEAKNESS 01/03/2022 05:43 [facility] [place] TYPE: Emergency COMPLAINT: - DENTAL PAIN DIAGNOSES: - Essential (primary) hypertension - Nicotine dependence, unspecified, uncomplicated - Periapical abscess without sinus - Anemia, unspecified 11/12/2021 20:48 [facility] [place] TYPE: Emergency COMPLAINT: - DIFFICULTY BREATHING DIAGNOSES: - Cough, unspecified - Other fdc (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 - Essential (primary) hypertension - Pneumonia, unspecified organism - Anemia, unspecified - Nicotine dependence, unspecified, uncomplicated Plus 1 More Visit INPATIENT VISIT TRACKING (12 MO.) 01/28/2022 21:[address] [facility] [place] TYPE: Medical Surgical COMPLAINT: - CELLULITIS DIAGNOSES: - Contact with and (suspected) exposure to COVID-19 - Synovitis and tenosynovitis, unspecified - Essential (primary) hypertension - Cellulitis of left finger - Other stimulant abuse, uncomplicated - Essential (primary) hypertension - Cellulitis of left upper limb - extermination inspector (current) use of antibiotics - Synovitis and tenosynovitis, unspecified - Other specified postprocedural states - Nicotine dependence, cigarettes, uncomplicated - extermination inspector (current) use of antibiotics - Dysarthria and anarthria - Other stimulant abuse, uncomplicated - Schizoaffective disorder, unspecified - Contact with and (suspected) exposure to COVID-19 - Cellulitis of left finger - Nicotine dependence, cigarettes, uncomplicated - Other specified postprocedural states - Dysarthria and anarthria - Schizoaffective disorder, unspecified [email or web address]
[2022-10-13] MEDS ORDERED: ONDANSETRON ODT8 MG PO (12:07)
[2022-10-13] MEDS ORDERED: DOXYCYCLINE HY100 MG PO (12:07)
== END 2022-10-13 12:17 | disposition home or self-care (01) ==
LOC: ED 11:39
DX: R60.0 Localized edema (principal); I10 Essential (primary) hypertension; E11.9 Type 2 diabetes mellitus without complications; F17.200 Nicotine dependence, unspecified, uncomplicated
CPT/HCPCS: 99283

== ENCOUNTER 2022-11-22 02:53 | Emergency (ER) | payer MEDICARE, OTHER ==
[~2022-11-22] VITALS: Ht 162.6 cm; Wt 53.1 kg
[~2022-11-22 02:53] MED LIST changes: +DOXYCYCLINE HY100 MG PO; +ONDANSETRON ODT8 MG PO
--- OUTSIDE RECORDS SUMMARY | 2022-11-22 03:01 | XMS ---
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 - Patient with suicidal and/or homicidal ideations eloped. - Patient eloped with IV in place. Details: Patient LWBS Elopement at [facility] 02/10/2022 06:38 - Patient eloped before treatment completed. - Patient with suicidal and/or homicidal ideations eloped. - Patient eloped with IV in place. Details: PATIENT LWBS Elopement at [facility] 02/04/2022 11:03 - Patient eloped before treatment completed. - Patient with suicidal and/or homicidal ideations eloped. - Patient eloped with IV in place. Details: PATIENT LWBS CRITERIA MET - [facility] - Has Care Guidelines - [facility] - 2 Visits in 30 Days - Group Notification CARE PROVIDERS -Ulysses- Dentist: Channel Manager [facility] PHONE: [phone] JAMILA NORIEGA [facility] 01/24/2020-Current PHONE: [phone] [place] has no Care Guidelines for this patient. Care History Medical/Surgical 03/11/2022 [facility] ALERT KATHLEEN HAS BEEN TRYING TO CONTACT PATIENT. IF PATIENT IS SEEN IN THE ED PLEASE CONTACT KATHLEEN CRISIS LINE [phone]. KATHLEEN HAS A PHONE TO PROVIDE TO THE PATIENT. PLEASE LET PATIENT KNOW. KATHLEEN IS TRYING TO HELP WITH HOUSING RESOURCES AND WOULD LIKE TO FURTHER ASSIST. 09/02/2021 [facility] - MULTIPLE ATTEMPTS TO CONTACT PATIENT - - PATIENT HAS DECLINED COMMUNITY COUNSELING SOLUTIONS HELP- MULTIPLE ATTEMPTS HAVE BEEN MADE AND PATIENT DECLINES EVERY TIME. - PATIENT HAS DECLINED HELP FROM KATHLEEN - PATIENT IS ABLE TO GO TO THE DAY CENTER THAT KATHLEEN PROVIDES. 11/27/2020 [facility] - KATHLEEN HELPED PATIENT WITH TREATMENT PLACEMENT AT [facility] - PATIENT WAS AT TREATMENT FACILITY AND LEFT AMA BY FOOT - PATIENT IS BACK IN THE AREA AND KATHLEEN HAS NO WAY OF CONTACTING PATIENT - IF PATIENT IS SEEN IN THE ED AGAIN-PLEASE ASK IF PATIENT WOULD BE OKAY WITH KATHLEEN BEING CONTACTED. E.D. VISIT COUNT (12 MO.) 2 [place] [address] [facility] [place] TOTAL 22 NOTE: Visits indicate total known visits. ED/UCC VISIT TRACKING (12 MO.) 11/22/2022 02:54 [facility] [place] TYPE: Emergency COMPLAINT: - SKIN PROBLEM 11/21/2022 13:52 [facility] [place] TYPE: Emergency COMPLAINT: - EAR PAIN 10/31/2022 17:09 [facility] [place]ish [place] TYPE: Emergency COMPLAINT: - HAND PAIN 10/13/2022 11:[address] [facility] [place] TYPE: Emergency COMPLAINT: - MOUTH, HANDS, FEET PAIN, HEADACHE DIAGNOSES: - Essential (primary) hypertension - Localized edema - Nicotine dependence, unspecified, uncomplicated - Type 2 diabetes mellitus without complications 03/22/2022 09:[address] [facility] Dish [place] TYPE: Emergency COMPLAINT: - EXTREMITY PAIN/INJURY DIAGNOSES: - Essential (primary) hypertension - Nicotine dependence, unspecified, uncomplicated - Other director long term care (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 - Other specified soft tissue disorders 03/14/2022 16:58 [facility] [place] [place] TYPE: Emergency COMPLAINT: - SKIN PROBLEM DIAGNOSES: - Delusional disorders - Disorder of the skin and subcutaneous tissue, unspecified - Essential (primary) hypertension - Nicotine dependence, unspecified, uncomplicated - Other director long term care (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 - Other stimulant abuse, uncomplicated - Rash and other nonspecific skin eruption 03/10/2022 13:59 [facility] Pyle TYPE: Emergency COMPLAINT: - MOUTH, THROAT, HANDS PAIN DIAGNOSES: - Changes in skin texture - Essential (primary) hypertension - Nicotine dependence, unspecified, uncomplicated - Other retirement (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 - Other stimulant abuse, uncomplicated - Paresthesia of skin 03/07/2022 01:12 [facility] Pyle TYPE: Emergency COMPLAINT: - ARM PAIN DIAGNOSES: - Essential (primary) hypertension - Nicotine dependence, unspecified, uncomplicated - Other director long term care (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 - Other stimulant abuse, uncomplicated - Pain in right hand 03/03/2022 13:25 [facility] Radha ROSARIO TYPE: Emergency DIAGNOSES: - Pruritus, unspecified - med refill - Medication Refill 03/01/2022 17:46 [facility] Radha ROSARIO TYPE: Emergency DIAGNOSES: - Dermatitis, unspecified - Other skin changes - foot issue - Hallucinations - Hand Swelling 02/15/2022 01:41 [facility]ook [place] TYPE: Emergency COMPLAINT: - WEAKNESS DIAGNOSES: - Anemia, unspecified - Essential (primary) hypertension - Nicotine dependence, unspecified, uncomplicated - Other director long term care (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 - Other stimulant abuse, uncomplicated 02/10/2022 06:38 [facility] [place] TYPE: Emergency [...] - BODY PART SWELLING 01/23/2022 02:03 [facility] Dish [place] TYPE: Emergency COMPLAINT: - HAND SWELLING DIAGNOSES: - Cellulitis of left upper limb - Essential (primary) hypertension - Nicotine dependence, unspecified, uncomplicated - Pain in left hand 01/13/2022 20:46 [facility] Dish [place] TYPE: Emergency COMPLAINT: - EXTREMITY PAIN DIAGNOSES: - Anemia, unspecified - Diarrhea, unspecified - Essential (primary) hypertension - Nicotine dependence, unspecified, uncomplicated - Unspecified parasitic disease Plus 2 More Visits INPATIENT VISIT TRACKING (12 MO.) 01/28/2022 21:[address] [facility] [place] TYPE: Medical Surgical COMPLAINT: - CELLULITIS DIAGNOSES: - Cellulitis of left finger - Cellulitis of left finger - Cellulitis of left upper limb - Contact with and (suspected) exposure to COVID-19 - Contact with and (suspected) exposure to COVID-19 - Dysarthria and anarthria - Dysarthria and anarthria - Essential (primary) hypertension - Essential (primary) hypertension - prison (current) use of antibiotics - prison (current) use of antibiotics - Nicotine dependence, cigarettes, uncomplicated - Nicotine dependence, cigarettes, uncomplicated - Other specified postprocedural states - Other specified postprocedural states - Other stimulant abuse, uncomplicated - Other stimulant abuse, uncomplicated - Schizoaffective disorder, unspecified - Schizoaffective disorder, unspecified - Synovitis and tenosynovitis, unspecified - Synovitis and tenosynovitis, unspecified [email or web address]
[2022-11-22] MEDS ORDERED: AMOX TR-K CLV1 EAC1 PO (03:32)
[2022-11-22 03:43] VITALS: BP 164/121
[2022-11-23] MEDS ORDERED: CLEOCIN HCL300 MG PO (10:14)
== END 2022-11-22 03:44 | disposition home or self-care (01) ==
LOC: ED 02:53
DX: K04.7 Periapical abscess without sinus (principal); I10 Essential (primary) hypertension; E11.9 Type 2 diabetes mellitus without complications; F17.200 Nicotine dependence, unspecified, uncomplicated

== ENCOUNTER 2022-11-23 10:00 | Emergency (ER) | payer MEDICARE, OTHER ==
[~2022-11-23] VITALS: Ht 162.6 cm; Wt 49.9 kg
--- OUTSIDE RECORDS SUMMARY | 2022-11-23 10:07 | XMS ---
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 - Patient with suicidal and/or homicidal ideations eloped. - Patient eloped with IV in place. Details: Patient LWBS Elopement at [facility] 02/10/2022 06:38 - Patient eloped before treatment completed. - Patient with suicidal and/or homicidal ideations eloped. - Patient eloped with IV in place. Details: PATIENT LWBS Elopement at [facility] 02/04/2022 11:03 - Patient eloped before treatment completed. - Patient with suicidal and/or homicidal ideations eloped. - Patient eloped with IV in place. Details: PATIENT LWBS CRITERIA MET - [facility] - 2 Visits in 30 Days - [facility] - Has Care Guidelines - Group Notification CARE PROVIDERS -[place]es- Dentist: Community Health Nurse Supervisor [facility] PHONE: [phone] JAMILA NORIEGA [facility] 01/24/2020-[facility] PHONE: [phone] [place] has no Care Guidelines for this patient. Care History Medical/Surgical 03/11/2022 [facility] ALERT KATHLEEN HAS BEEN TRYING TO CONTACT PATIENT. IF PATIENT IS SEEN IN THE ED PLEASE CONTACT KATHLEEN CRISIS LINE [phone]. KATHLEEN HAS A PHONE TO PROVIDE TO THE PATIENT. PLEASE LET PATIENT KNOW. KATHLEEN IS TRYING TO HELP WITH HOUSING RESOURCES AND WOULD LIKE TO FURTHER ASSIST. 09/02/2021 [facility] - MULTIPLE ATTEMPTS TO CONTACT PATIENT - - PATIENT HAS DECLINED COMMUNITY COUNSELING SOLUTIONS HELP- MULTIPLE ATTEMPTS HAVE BEEN MADE AND PATIENT DECLINES EVERY TIME. - PATIENT HAS DECLINED HELP FROM KATHLEEN - PATIENT IS ABLE TO GO TO THE DAY CENTER THAT KATHLEEN PROVIDES. 11/27/2020 [facility] - KATHLEEN HELPED PATIENT WITH TREATMENT PLACEMENT AT [facility] - PATIENT WAS AT TREATMENT FACILITY AND LEFT AMA BY FOOT - PATIENT IS BACK IN THE AREA AND KATHLEEN HAS NO WAY OF CONTACTING PATIENT - IF PATIENT IS SEEN IN THE ED AGAIN-PLEASE ASK IF PATIENT WOULD BE OKAY WITH KATHLEEN BEING CONTACTED. E.D. VISIT COUNT (12 MO.) [address] Radha Wilson 21 LASHAY Delgado TOTAL 23 NOTE: Visits indicate total known visits. ED/UCC VISIT TRACKING (12 MO.) 11/23/2022 10:03 L[facility] Shook [place] TYPE: Emergency COMPLAINT: - THINKS HE HAS INFECTION 11/22/2022 02:54 [facility] Shook [place] TYPE: Emergency COMPLAINT: - SKIN PROBLEM 11/21/2022 13:52 [facility] Shook [place] TYPE: Emergency COMPLAINT: - EAR PAIN 10/31/2022 17:09 [facility] [place]ook [place] TYPE: Emergency COMPLAINT: - HAND PAIN 10/13/2022 11:40 [facility] Shook [place] TYPE: Emergency COMPLAINT: - MOUTH, HANDS, FEET PAIN, HEADACHE DIAGNOSES: - Essential (primary) hypertension - Localized edema - Nicotine dependence, unspecified, uncomplicated - Type 2 diabetes mellitus without complications 03/22/2022 09:[address] [facility] Arora [place] TYPE: Emergency COMPLAINT: - EXTREMITY PAIN/INJURY DIAGNOSES: - Essential (primary) hypertension - Nicotine dependence, unspecified, uncomplicated - Other prison (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 - Other specified soft tissue disorders 03/14/2022 16:58 [facility] Shook [place] TYPE: Emergency COMPLAINT: - SKIN PROBLEM DIAGNOSES: - Delusional disorders - Disorder of the skin and subcutaneous tissue, unspecified - Essential (primary) hypertension - Nicotine dependence, unspecified, uncomplicated - Other prison (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 - Other stimulant abuse, uncomplicated - Rash and other nonspecific skin eruption 03/10/2022 13:[address] [facility] [address] [place] TYPE: Emergency COMPLAINT: - MOUTH, THROAT, HANDS PAIN DIAGNOSES: - Changes in skin texture - Essential (primary) hypertension - Nicotine dependence, unspecified, uncomplicated - Other computer terminal operator (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 - Other stimulant abuse, uncomplicated - Paresthesia of skin 03/07/2022 01:[address] [facility] [place] [place] TYPE: Emergency COMPLAINT: - ARM PAIN DIAGNOSES: - Essential (primary) hypertension - Nicotine dependence, unspecified, uncomplicated - Other computer terminal operator (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 - Other stimulant abuse, uncomplicated - Pain in right hand 03/03/2022 13:25 [facility]Troy ROSARIO TYPE: Emergency DIAGNOSES: - Pruritus, unspecified - med refill - Medication Refill [facility]2022 [facility] DIAGNOSES: - Dermatitis, unspecified - Other skin changes - foot issue - Hallucinations - Hand Swelling 02/15/2022 01:41 LASHAY Pyle TYPE: Emergency COMPLAINT: - WEAKNESS DIAGNOSES: - Anemia, unspecified - Essential (primary) hypertension - Nicotine dependence, unspecified, uncomplicated - Other computer terminal operator (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 - Other stimulant abuse, uncomplicated 02/10/2022 06:38 LASHAY Pyle TYPE: Emergency COMPLAINT: - LT HAND PAIN 02/05/2022 12:54 [facility] Shook [place] TYPE: Emergency COMPLAINT: - HANDS PAIN 02/04/2022 11:03 [facility] [place] [place] TYPE: Emergency COMPLAINT: - HANDS PAIN 02/03/2022 19:04 [facility] [place]ook [place] TYPE: Emergency COMPLAINT: - MULTIPLE COMPLAINTS 02/03/2022 11:19 [facility] [place]ook [place] TYPE: Emergency COMPLAINT: - HAND PAIN 01/28/2022 17:[address] [facility] [place] TYPE: Emergency COMPLAINT: - PAIN 01/25/2022 08:28 [facility] [place]ook [place] TYPE: Emergency COMPLAINT: - BODY PART SWELLING 01/23/2022 02:03 [facility] [place] [place] TYPE: Emergency COMPLAINT: - HAND SWELLING DIAGNOSES: - Cellulitis of left upper limb - Essential (primary) hypertension - Nicotine dependence, unspecified, uncomplicated - Pain in left hand Plus 3 More Visits INPATIENT VISIT TRACKING (12 MO.) [...] (primary) hypertension - Essential (primary) hypertension - termite control representative (current) use of antibiotics - snf (current) use of antibiotics - Nicotine dependence, cigarettes, uncomplicated - Nicotine dependence, cigarettes, uncomplicated - Other specified postprocedural states - Other specified postprocedural states - Other stimulant abuse, uncomplicated - Other stimulant abuse, uncomplicated - Schizoaffective disorder, unspecified - Schizoaffective disorder, unspecified - Synovitis and tenosynovitis, unspecified - Synovitis and tenosynovitis, unspecified [email or web address]
[2022-11-23] MEDS ORDERED: CLEOCIN HCL300 MG PO (10:14)
[2022-11-23 10:34] VITALS: BP 160/87
== END 2022-11-23 10:34 | disposition home or self-care (01) ==
LOC: ED 10:00
DX: K02.9 Dental caries, unspecified (principal); K13.0 Diseases of lips; I10 Essential (primary) hypertension; E11.9 Type 2 diabetes mellitus without complications; F17.200 Nicotine dependence, unspecified, uncomplicated; Z79.899 Other long term (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

== ENCOUNTER 2022-12-16 20:44 | Emergency (ER) | payer MEDICARE, OTHER ==
[~2022-12-16] VITALS: Ht 162.6 cm; Wt 52.0 kg
--- OUTSIDE RECORDS SUMMARY | 2022-12-16 20:52 | XMS ---
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 - Patient with suicidal and/or homicidal ideations eloped. - Patient eloped with IV in place. Details: Patient LWBS. Elopement at [facility] 10/31/2022 17:09 - Patient eloped before treatment completed. - Patient with suicidal and/or homicidal ideations eloped. - Patient eloped with IV in place. Details: Patient LWBS Elopement at [facility] 02/10/2022 06:38 - Patient eloped before treatment completed. - Patient with suicidal and/or homicidal ideations eloped. - Patient eloped with IV in place. Details: PATIENT LWBS CRITERIA MET - 6 ED Visits in 6 Months - Group Notification - [facility] - 2 Visits in 30 Days - [facility] - Has Care Guidelines CARE PROVIDERS -U[place]es- Dentist: Financial Operations Clerk [facility] PHONE: [phone] JAMILA NORIEGA [facility] 01/24/[facility] PHONE: [phone] [place] has no Care Guidelines for this patient. Care History Medical/Surgical 03/11/2022 [facility] ALERT KATHLEEN HAS BEEN TRYING TO CONTACT PATIENT. IF PATIENT IS SEEN IN THE ED PLEASE CONTACT KATHLEEN CRISIS LINE [phone]. KATHLEEN HAS A PHONE TO PROVIDE TO THE PATIENT. PLEASE LET PATIENT KNOW. KATHLEEN IS TRYING TO HELP WITH HOUSING RESOURCES AND WOULD LIKE TO FURTHER ASSIST. 09/02/2021 [facility] - MULTIPLE ATTEMPTS TO CONTACT PATIENT - - PATIENT HAS DECLINED COMMUNITY COUNSELING SOLUTIONS HELP- MULTIPLE ATTEMPTS HAVE BEEN MADE AND PATIENT DECLINES EVERY TIME. - PATIENT HAS DECLINED HELP FROM KATHLEEN - PATIENT IS ABLE TO GO TO THE DAY CENTER THAT KATHLEEN PROVIDES. 11/27/2020 [facility] - KATHLEEN HELPED PATIENT WITH [...] BEING CONTACTED. E.D. VISIT COUNT (12 MO.) [facility] [address] [facility] [place] TOTAL 25 NOTE: Visits indicate total known visits. ED/UCC VISIT TRACKING (12 MO.) 12/16/2022 20:45 LASHAY Bolanoskhoi HolderTroy AMBROCIO TYPE: Emergency COMPLAINT: - DIZZY 12/09/2022 18:55 [facility]: Emergency DIAGNOSES: - Cellulitis of right upper limb - Arm Swelling - Rt arm pain/swelling 11/23/2022 10:03 [facility] Shook [place] TYPE: Emergency COMPLAINT: - THINKS HE HAS INFECTION DIAGNOSES: - Dental caries, unspecified - Diseases of lips - Essential (primary) hypertension - Nicotine dependence, unspecified, uncomplicated - Other long term care phlebotomist (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 - Type 2 diabetes mellitus without complications 11/22/2022 02:54 [facility] [place]ook [place] TYPE: Emergency COMPLAINT: - SKIN PROBLEM DIAGNOSES: - Disorder of the skin and subcutaneous tissue, unspecified - Essential (primary) hypertension - Nicotine dependence, unspecified, uncomplicated - Periapical abscess without sinus - Type 2 diabetes mellitus without complications 11/21/2022 13:52 [facility] [place]ook [place] TYPE: Emergency COMPLAINT: - EAR PAIN 10/31/2022 17:09 [facility] [place] TYPE: Emergency COMPLAINT: - HAND PAIN 10/13/2022 11:40 [facility] [place] [place] TYPE: Emergency COMPLAINT: - MOUTH, HANDS, FEET PAIN, HEADACHE DIAGNOSES: - Essential (primary) hypertension - Localized edema - Nicotine dependence, unspecified, uncomplicated - Type 2 diabetes mellitus without complications 03/22/2022 09:10 [facility] [address] [facility] [place] TYPE: Emergency COMPLAINT: - EXTREMITY PAIN/INJURY DIAGNOSES: - Essential (primary) hypertension - Nicotine dependence, unspecified, uncomplicated - Other [place] 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 - Other specified soft tissue disorders 03/14/2022 16:[address] [facility] [address] [facility] [place] TYPE: Emergency COMPLAINT: - SKIN PROBLEM DIAGNOSES: - Delusional disorders - Disorder of the skin and subcutaneous tissue, unspecified - Essential (primary) hypertension - Nicotine dependence, unspecified, uncomplicated - Other long term care phlebotomist (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 - Other stimulant abuse, uncomplicated - Rash and other nonspecific skin eruption 03/10/2022 13:59 LASHAY Pyle TYPE: Emergency COMPLAINT: - MOUTH, THROAT, HANDS PAIN DIAGNOSES: - Changes in skin texture - Essential (primary) hypertension - Nicotine dependence, unspecified, uncomplicated - Other long term care phlebotomist (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 - Other stimulant abuse, uncomplicated - Paresthesia of skin 03/07/2022 01:12 LASHAY Pyle TYPE: Emergency COMPLAINT: - ARM PAIN DIAGNOSES: - Essential (primary) hypertension - Nicotine dependence, unspecified, uncomplicated - Other [place] [facility] (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 - Other stimulant abuse, uncomplicated - Pain in right hand [facility]/03/2022 [facility] DIAGNOSES: - Pruritus, unspecified - med refill - Medication Refill 03/01/2022 17:[facility] DIAGNOSES: - Dermatitis, unspecified - Other skin changes - foot issue - Hallucinations - Hand Swelling 02/15/2022 01:41 LASH[facility] Shook [place] TYPE: Emergency COMPLAINT: - WEAKNESS DIAGNOSES: - Anemia, unspecified - Essential (primary) hypertension - Nicotine dependence, unspecified, uncomplicated - Other long term care phlebotomist (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 - Other stimulant abuse, [...] Shook [place] TYPE: Emergency COMPLAINT: - PAIN Plus 5 More Visits INPATIENT VISIT TRACKING (12 MO.) 12/09/2022 18:55 [facility] TYPE: Medical Surgical DIAGNOSES: - Cellulitis of right upper limb - Cellulitis of right upper limb 01/28/2022 21:[address] [facility] [address] Tai AMBROCIO TYPE: Medical Surgical COMPLAINT: - CELLULITIS DIAGNOSES: - Cellulitis of left finger - Cellulitis of left finger - Cellulitis of left upper limb - Contact with and (suspected) exposure to COVID-19 - Contact with and (suspected) exposure to COVID-19 - Dysarthria and anarthria - Dysarthria and anarthria - Essential (primary) hypertension - Essential (primary) hypertension - extermination supervisor (current) use of antibiotics - correction (current) use of antibiotics - Nicotine dependence, cigarettes, uncomplicated - Nicotine dependence, cigarettes, uncomplicated - Other specified postprocedural states - Other specified postprocedural states - Other stimulant abuse, uncomplicated - Other stimulant abuse, uncomplicated - Schizoaffective disorder, unspecified - Schizoaffective disorder, unspecified - Synovitis and tenosynovitis, unspecified - Synovitis and tenosynovitis, unspecified [email or web address]
[2022-12-16 23:16] VITALS: BP 105/70
== END 2022-12-16 23:18 | disposition home or self-care (01) ==
LOC: ED 20:44
DX: R42 Dizziness and giddiness (principal); I10 Essential (primary) hypertension; E11.9 Type 2 diabetes mellitus without complications; F17.200 Nicotine dependence, unspecified, uncomplicated; Z79.899 Other long term (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
CPT/HCPCS: 36415; 70450; 80053; 81003; 85025; 99406

== ENCOUNTER 2022-12-21 12:34 | Emergency (ER) | payer MEDICARE, OTHER ==
[~2022-12-21] VITALS: Ht 162.6 cm; Wt 51.7 kg
--- OUTSIDE RECORDS SUMMARY | 2022-12-21 12:40 | XMS ---
PreManage Notification: VALENTINO SORTO Security Paramedic Events 5 event(s) in the past 18 months Most recent security events: Elopement at [facility] 11/21/2022 13:52 - Patient eloped before treatment completed. - Patient with suicidal and/or homicidal ideations eloped. - Patient eloped with IV in place. Details: Patient LWBS. Elopement at [facility] 10/31/2022 17:09 - Patient eloped before treatment completed. - Patient with suicidal and/or homicidal ideations eloped. - Patient eloped with IV in place. Details: Patient LWBS Elopement at [facility] 02/10/2022 06:38 - Patient eloped before treatment completed. - Patient with suicidal and/or homicidal ideations eloped. - Patient eloped with IV in place. Details: PATIENT LWBS CRITERIA MET - 6 ED Visits in 6 Months - Group Notification - [facility] - 2 Visits in 30 Days - [facility] - Has Care Guidelines CARE PROVIDERS -Ulysses- Dentist: Nitrocellulose Operator [facility] PHONE: [phone] JAMILA NORIEGA [facility] 01/24/2020-[facility] PHONE: [phone] [place] has no Care Guidelines for this patient. Care History Medical/Surgical 03/11/2022 [facility] ALERT KATHLEEN HAS BEEN TRYING TO CONTACT PATIENT. IF PATIENT IS SEEN IN THE ED PLEASE CONTACT KATHLEEN CRISIS LINE [phone]. KATHLEEN HAS A PHONE TO PROVIDE TO THE PATIENT. PLEASE LET PATIENT KNOW. KATHLEEN IS TRYING TO HELP WITH HOUSING RESOURCES AND WOULD LIKE TO FURTHER ASSIST. 09/02/2021 [facility] - MULTIPLE ATTEMPTS TO CONTACT PATIENT - - PATIENT HAS DECLINED COMMUNITY COUNSELING SOLUTIONS HELP- MULTIPLE ATTEMPTS HAVE BEEN MADE AND PATIENT DECLINES EVERY TIME. - PATIENT HAS DECLINED HELP FROM KATHLEEN - PATIENT IS ABLE TO GO TO THE DAY CENTER THAT KATHLEEN PROVIDES. 11/27/2020 [facility] - KATHLEEN HELPED PATIENT WITH TREATMENT PLACEMENT AT [facility] - PATIENT WAS AT TREATMENT FACILITY AND LEFT AMA BY FOOT - PATIENT IS BACK IN THE AREA AND KATHLEEN HAS NO WAY OF CONTACTING PATIENT - IF PATIENT IS SEEN IN THE ED AGAIN-PLEASE ASK IF PATIENT WOULD BE OKAY WITH KATHLEEN BEING CONTACTED. E.D. VISIT COUNT (12 MO.) 3 [facility] MJayde 23 LASHAY Delgado TOTAL 26 NOTE: Visits indicate total known visits. ED/UCC VISIT TRACKING (12 MO.) 12/21/2022 12:34 LASHAY Shook [place] TYPE: Emergency COMPLAINT: - DIZZINESS 12/16/2022 20:45 LASHAY Shook [place] TYPE: Emergency COMPLAINT: - DIZZINESS DIAGNOSES: - Dizziness and giddiness - Essential (primary) hypertension - Nicotine dependence, unspecified, uncomplicated - [place] [facility] 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 - Type 2 diabetes mellitus without complications 12/09/2022 18:55 [facility] Steve ROSARIO TYPE: Emergency DIAGNOSES: - Cellulitis of right upper limb - Arm Swelling - Rt arm pain/swelling 11/23/2022 10:03 LASHAY Shook [place] TYPE: Emergency COMPLAINT: - THINKS HE HAS INFECTION DIAGNOSES: - Dental caries, unspecified - Diseases of lips - Essential (primary) hypertension - Nicotine dependence, unspecified, uncomplicated - Other roasterman (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 - Type 2 diabetes mellitus without complications 11/22/2022 02:54 LASHAY Shook [place] TYPE: Emergency COMPLAINT: - SKIN PROBLEM DIAGNOSES: - Disorder of the skin and subcutaneous tissue, unspecified - Essential (primary) hypertension - Nicotine dependence, unspecified, uncomplicated - Periapical abscess without sinus - Type 2 diabetes mellitus without complications 11/21/2022 13:52 [facility] [place] Jeremías Arora [place] TYPE: Emergency COMPLAINT: - EAR PAIN 10/31/2022 17:09 [facility] [place] Jeremías Arora [place] TYPE: Emergency COMPLAINT: - HAND PAIN 10/13/2022 11:40 [facility] [place] Jeremías Arora [place] TYPE: Emergency COMPLAINT: - MOUTH, HANDS, FEET PAIN, HEADACHE DIAGNOSES: - Essential (primary) hypertension - Localized edema - Nicotine dependence, unspecified, uncomplicated - Type 2 diabetes mellitus without complications 03/22/2022 09:10 [facility] [place] Jeremías Arora [place] TYPE: Emergency COMPLAINT: - [...] - Nicotine dependence, unspecified, uncomplicated - Other roasterman (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 - Other stimulant abuse, uncomplicated - Rash and other nonspecific skin eruption 03/10/2022 13:59 L[facility] Shook [place] TYPE: Emergency COMPLAINT: - MOUTH, THROAT, HANDS PAIN DIAGNOSES: - Changes in skin texture - Essential (primary) hypertension - Nicotine dependence, unspecified, uncomplicated - Other roasterman (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 - Other stimulant abuse, uncomplicated - Paresthesia of skin 03/07/2022 01:12 LASH[facility] Shook [place] TYPE: Emergency COMPLAINT: - ARM PAIN DIAGNOSES: - Essential (primary) hypertension - Nicotine dependence, unspecified, uncomplicated - Other roasterman (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 - Other stimulant abuse, uncomplicated - Pain in right hand 03/03/2022 13:25 [facility]: Emergency DIAGNOSES: - Pruritus, unspecified - med refill - Medication Refill 03/01/2022 17:46 [facility] DIAGNOSES: - Dermatitis, unspecified - Other skin changes - foot issue - Hallucinations - Hand Swelling 02/15/2022 01:41 LASHAY Pyle TYPE: Emergency COMPLAINT: - WEAKNESS DIAGNOSES: - Anemia, unspecified - Essential (primary) hypertension - Nicotine dependence, unspecified, uncomplicated - Other roasterman (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 - Other stimulant abuse, uncomplicated 02/10/2022 06:38 LASHAY Pyle TYPE: Emergency COMPLAINT: - LT HAND PAIN 02/05/2022 12:54 LASHAY Shook [place] TYPE: Emergency COMPLAINT: - HANDS PAIN 02/04/2022 11:03 LASH[facility] Shook [place] TYPE: Emergency COMPLAINT: - HANDS PAIN 02/03/2022 19:04 LASHAY Shook [place] TYPE: Emergency COMPLAINT: - MULTIPLE COMPLAINTS 02/03/2022 11:[address] [facility] [address] Tai [place] TYPE: Emergency COMPLAINT: - HAND PAIN Plus 6 More Visits INPATIENT VISIT TRACKING (12 MO.) 12/09/2022 18:55 [facility] Steve ROSARIO TYPE: Medical Surgical DIAGNOSES: - Cellulitis of right upper limb - Cellulitis of right upper limb 01/28/2022 21:43 LASHAY Shook [place] TYPE: Medical Surgical COMPLAINT: - CELLULITIS DIAGNOSES: - Cellulitis of left finger - Cellulitis of left finger - Cellulitis of left upper limb - Contact with and (suspected) exposure to COVID-19 - Contact with and (suspected) exposure to COVID-19 - Dysarthria and anarthria - Dysarthria and anarthria - Essential (primary) hypertension - Essential (primary) hypertension - termite control technician (current) use of antibiotics - group home (current) use of antibiotics - Nicotine dependence, cigarettes, uncomplicated - Nicotine dependence, cigarettes, uncomplicated - Other specified postprocedural states - Other specified postprocedural states - Other stimulant abuse, uncomplicated - Other stimulant abuse, uncomplicated - Schizoaffective disorder, unspecified - Schizoaffective disorder, unspecified - Synovitis and tenosynovitis, unspecified - Synovitis and tenosynovitis, unspecified [email or web address]
[2022-12-21 15:11] VITALS: BP 128/81
--- NOTE | 2022-12-22 18:10 | EKG ---
[facility] [address] [facility] [place] [address] Signed Normal sinus rhythm T wave abnormality, consider inferolateral ischemia , new compared to the EKG from 11/12/21 Abnormal ECG When compared with ECG of 12-NOV-2021 21:29, premature ventricular complexes are no longer present QRS axis shifted right Confirmed by SHELIA MCFADDEN MD ([id number]) on 12/22/2022 6:10:00 PM Electronically Signed By: SHELIA MCFADDEN MD 12/22/22 1810 PATIENT NAME: VALENTINO SORTO LYDIA Electrocardiogram DATE OF : 68 PHYSICIAN: SHELIA MCFADDEN MD REPORT #: [id number] REPORT IS CONFIDENTIAL AND NOT TO BE RELEASED WITHOUT AUTHORIZATION
== END 2022-12-21 15:32 | disposition home or self-care (01) ==
LOC: ED 12:34
DX: F15.10 Other stimulant abuse, uncomplicated (principal); I10 Essential (primary) hypertension; E11.9 Type 2 diabetes mellitus without complications; F17.200 Nicotine dependence, unspecified, uncomplicated; Z79.899 Other long term (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
CPT/HCPCS: 36415; 80053; 85025; 93005; 93010; 99284-25; J7030

== ENCOUNTER 2023-01-01 18:28 | Emergency (ER) | payer MEDICARE, OTHER ==
[~2023-01-01] VITALS: Ht 162.6 cm; Wt 52.5 kg
--- OUTSIDE RECORDS SUMMARY | 2023-01-01 18:39 | XMS ---
PreManage Notification: VALENTINO SORTO Security Representative Phlebotomy Services Events 5 event(s) in the past 18 months Most recent security events: Elopement at [facility] 11/21/2022 13:52 - Patient eloped before treatment completed. - Patient with suicidal and/or homicidal ideations eloped. - Patient eloped with IV in place. Details: Patient LWBS. Elopement at [facility] 10/31/2022 17:09 - Patient eloped before treatment completed. - Patient with suicidal and/or homicidal ideations eloped. - Patient eloped with IV in place. Details: Patient LWBS Elopement at [facility] 02/10/2022 06:38 - Patient eloped before treatment completed. - Patient with suicidal and/or homicidal ideations eloped. - Patient eloped with IV in place. Details: PATIENT LWBS CRITERIA MET - 6 ED Visits in 6 Months - Group Notification - [facility] - 2 Visits in 30 Days - [facility] - Has Care Guidelines CARE PROVIDERS -Ulysses- Dentist: Senior Business Analyst [facility] PHONE: [phone] JAMILA NORIEGA [facility] 01/24/2020-[facility] PHONE: [phone] [place] has no Care Guidelines for this patient. Care History Medical/Surgical 03/11/2022 [facility] ALERT KATHLEEN HAS BEEN TRYING TO CONTACT PATIENT. IF PATIENT IS SEEN IN THE ED PLEASE CONTACT KATHLEEN CRISIS LINE [phone]. KATHLEEN HAS A PHONE TO PROVIDE TO THE PATIENT. PLEASE LET PATIENT KNOW. KATHLEEN IS TRYING TO HELP WITH HOUSING RESOURCES AND WOULD LIKE TO FURTHER ASSIST. 09/02/2021 [facility] - MULTIPLE ATTEMPTS TO CONTACT PATIENT - - PATIENT HAS DECLINED COMMUNITY COUNSELING SOLUTIONS HELP- MULTIPLE ATTEMPTS HAVE BEEN MADE AND PATIENT DECLINES EVERY TIME. - PATIENT HAS DECLINED HELP FROM KATHLEEN - PATIENT IS ABLE TO GO TO THE DAY CENTER THAT KATHLEEN PROVIDES. 11/27/2020 [facility] - KATHLEEN HELPED PATIENT WITH TREATMENT PLACEMENT AT [facility] - PATIENT WAS AT TREATMENT FACILITY AND LEFT AMA BY FOOT - PATIENT IS BACK IN THE AREA AND KATHLEEN HAS NO WAY OF CONTACTING PATIENT - IF PATIENT IS SEEN IN THE ED AGAIN-PLEASE ASK IF PATIENT WOULD BE OKAY WITH KATHLEEN BEING CONTACTED. E.D. [facility] [address] [facility] [address] Tai Veronica TOTAL 27 NOTE: Visits indicate total known visits. ED/UCC VISIT TRACKING (12 MO.) 01/01/2023 18:29 LASHAY Shook [place] TYPE: Emergency COMPLAINT: - BUG BITES 12/21/2022 12:34 LASHAY Shook [place] TYPE: Emergency COMPLAINT: - DIZZINESS DIAGNOSES: - Essential (primary) hypertension - Nicotine dependence, unspecified, uncomplicated - Other intermodal customer service (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 - Other stimulant abuse, uncomplicated - Type 2 diabetes mellitus without complications - Weakness 12/16/2022 20:45 LASHAY Pyle TYPE: Emergency COMPLAINT: - DIZZINESS DIAGNOSES: - Dizziness and giddiness - Essential (primary) hypertension - Nicotine dependence, unspecified, uncomplicated - Other intermodal customer service (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 - Type 2 diabetes mellitus without complications 12/09/2022 18:55 [facility] Steve ROSARIO TYPE: Emergency DIAGNOSES: - Cellulitis of right upper limb - Arm Swelling - Rt arm pain/swelling 11/23/2022 10:03 LASHAY Pyle TYPE: Emergency COMPLAINT: - THINKS HE HAS INFECTION DIAGNOSES: - Dental caries, unspecified - Diseases of lips - Essential (primary) hypertension - Nicotine dependence, unspecified, uncomplicated - Other retirement (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 - Type 2 diabetes mellitus without complications 11/22/2022 02:54 [facility] [place] TYPE: Emergency COMPLAINT: - SKIN PROBLEM DIAGNOSES: - Disorder of the skin and subcutaneous tissue, unspecified - Essential (primary) hypertension - Nicotine dependence, unspecified, uncomplicated - Periapical abscess without sinus - Type 2 diabetes mellitus without complications 11/21/2022 13:[address] [facility] [address] [facility] Ar[place] TYPE: Emergency COMPLAINT: - EAR PAIN 10/31/2022 17:[address] [facility] [address] [facility] Arora [place] TYPE: Emergency COMPLAINT: - HAND PAIN 10/13/2022 11:[address] [facility] [address] [place] Arora [place] TYPE: Emergency COMPLAINT: - MOUTH, HANDS, FEET PAIN, HEADACHE DIAGNOSES: - Essential (primary) hypertension - Localized edema - Nicotine dependence, unspecified, uncomplicated - Type 2 diabetes mellitus without complications 03/22/2022 09:[address] [facility] [address] [facility] Ar[place] TYPE: Emergency COMPLAINT: - EXTREMITY PAIN/INJURY DIAGNOSES: - Essential (primary) hypertension - Nicotine dependence, unspecified, uncomplicated - Other intermodal customer service (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 - Other specified soft tissue disorders 03/14/2022 16:[address] [facility] [address] [facility] [place] TYPE: Emergency COMPLAINT: - SKIN PROBLEM DIAGNOSES: - Delusional disorders - Disorder of the skin and subcutaneous tissue, unspecified - Essential (primary) hypertension - Nicotine dependence, unspecified, uncomplicated - Other retirement (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 - Other stimulant abuse, uncomplicated - Rash and other nonspecific skin eruption 03/10/2022 13:[address] [facility] [address] [facility] [place] TYPE: Emergency COMPLAINT: - MOUTH, THROAT, HANDS PAIN DIAGNOSES: - Changes in skin texture - Essential (primary) hypertension - Nicotine dependence, unspecified, uncomplicated - Other intermodal customer service (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 - Other stimulant abuse, uncomplicated - Paresthesia of skin 03/07/2022 01:12 LASHAY Pyle TYPE: Emergency COMPLAINT: - ARM PAIN DIAGNOSES: - Essential (primary) hypertension - Nicotine dependence, unspecified, uncomplicated - Other intermodal customer service (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 - Other stimulant abuse, uncomplicated - Pain in right hand [facility]03[facility]22 [facility] DIAGNOSES: - Pruritus, unspecified - med refill - Medication Refill 03/01/2022 17:[facility] DIAGNOSES: - Dermatitis, [...] OR TYPE: Emergency COMPLAINT: - MULTIPLE COMPLAINTS Plus 7 More Visits INPATIENT VISIT TRACKING (12 MO.) 12/09/2022 18:55 [facility] Steve ROSARIO TYPE: Medical Surgical DIAGNOSES: - Cellulitis of right upper limb - Cellulitis of right upper limb 01/28/2022 21:[address] [facility] [address] [facility] Ar[place] TYPE: Medical Surgical [...] control representative (current) use of antibiotics - [facility] (current) use of antibiotics - Nicotine dependence, cigarettes, uncomplicated - Nicotine dependence, cigarettes, uncomplicated - Other specified postprocedural states - Other specified postprocedural states - Other stimulant abuse, uncomplicated - Other stimulant abuse, uncomplicated - Schizoaffective disorder, unspecified - Schizoaffective disorder, unspecified - Synovitis and tenosynovitis, unspecified - Synovitis and tenosynovitis, unspecified [email or web address]
[2023-01-01] MEDS ORDERED: HYDROCHLOROTH12.5 MG PO ×3 (19:10→19:16)
[2023-01-01] MEDS ORDERED: LISINOPRIL10 MG PO ×2 (19:10→19:14)
[2023-01-01] MEDS ORDERED: ELIMITE60 GM TOP (19:16)
[2023-01-01 19:33] VITALS: BP 162/98
== END 2023-01-01 19:33 | disposition home or self-care (01) ==
LOC: ED 18:28
DX: B86 Scabies (principal); I10 Essential (primary) hypertension; E11.9 Type 2 diabetes mellitus without complications; F17.200 Nicotine dependence, unspecified, uncomplicated; F15.11 Other stimulant abuse, in remission; Z79.899 Other long term (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
CPT/HCPCS: 99283

== ENCOUNTER 2023-01-10 07:20 | Emergency (ER) | payer MEDICARE, OTHER ==
[~2023-01-10] VITALS: Ht 162.6 cm; Wt 52.6 kg
[~2023-01-10 07:20] MED LIST changes: +ELIMITE60 GM TOP; +HYDROCHLOROTH12.5 MG PO
--- OUTSIDE RECORDS SUMMARY | 2023-01-10 07:24 | XMS ---
PreManage Notification: VALENTINO SORTO Security Archives Specialist Events 5 event(s) in the past 18 months Most recent security events: Elopement at [facility] 11/21/2022 13:52 - Patient eloped before treatment completed. - Patient with suicidal and/or homicidal ideations eloped. - Patient eloped with IV in place. Details: Patient LWBS. Elopement at [facility] 10/31/2022 17:09 - Patient eloped before treatment completed. - Patient with suicidal and/or homicidal ideations eloped. - Patient eloped with IV in place. Details: Patient LWBS Elopement at [facility] 02/10/2022 06:38 - Patient eloped before treatment completed. - Patient with suicidal and/or homicidal ideations eloped. - Patient eloped with IV in place. Details: PATIENT LWBS CRITERIA MET - 6 ED Visits in 6 Months - Group Notification - [facility] - 2 Visits in 30 Days - [facility] - Has Care Guidelines CARE PROVIDERS -Ulysses- Dentist: Caustic Mixer [facility] PHONE: [phone] JAMILA NORIEGA [facility] 01/24/2020-[facility] PHONE: [phone] [place] has no Care Guidelines for this patient. Care History Medical/Surgical 03/11/2022 [facility] ALERT KATHLEEN HAS BEEN TRYING TO CONTACT PATIENT. IF PATIENT IS SEEN IN THE ED PLEASE CONTACT KATHLEEN CRISIS LINE [phone]. KATHLEEN HAS A PHONE TO PROVIDE TO THE PATIENT. PLEASE LET PATIENT KNOW. KATHLEEN IS TRYING TO HELP WITH HOUSING RESOURCES AND WOULD LIKE TO FURTHER ASSIST. 09/02/2021 [facility] - MULTIPLE ATTEMPTS TO CONTACT PATIENT - - PATIENT HAS DECLINED COMMUNITY COUNSELING SOLUTIONS HELP- MULTIPLE ATTEMPTS HAVE BEEN MADE AND PATIENT DECLINES EVERY TIME. - PATIENT HAS DECLINED HELP FROM KATHLEEN - PATIENT IS ABLE TO GO TO THE DAY CENTER THAT KATHLEEN PROVIDES. 11/27/2020 [facility] - KATHLEEN HELPED PATIENT WITH TREATMENT PLACEMENT AT [facility] - PATIENT WAS AT TREATMENT FACILITY AND LEFT AMA BY FOOT - PATIENT IS BACK IN THE AREA AND KATHLEEN HAS NO WAY OF CONTACTING PATIENT - IF PATIENT IS SEEN IN THE ED AGAIN-PLEASE ASK IF PATIENT WOULD BE OKAY WITH KATHLEEN BEING CONTACTED. E.D. VISIT COUNT (12 MO.) 3 [facility] Delgado TOTAL 26 NOTE: Visits indicate total known visits. ED/UCC VISIT TRACKING (12 MO.) 01/10/2023 07:21 LASHAY Shook [place] TYPE: Emergency COMPLAINT: - HAND PAIN/SWELLING 01/01/2023 18:29 LASHAY Shook [place] TYPE: Emergency COMPLAINT: - BUG BITES DIAGNOSES: - Essential (primary) hypertension - Nicotine dependence, unspecified, uncomplicated - Other joint terminal attack controller (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 - Other stimulant abuse, in remission - Scabies - Type 2 diabetes mellitus without complications 12/21/2022 12:34 [facility] [place] TYPE: Emergency COMPLAINT: - DIZZINESS DIAGNOSES: - Essential (primary) hypertension - Nicotine dependence, unspecified, uncomplicated - Other detention (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 - Other stimulant abuse, uncomplicated - Type 2 diabetes mellitus without complications - Weakness 12/16/2022 20:[address] [facility] [address] Tai AMBROCIO TYPE: Emergency COMPLAINT: - DIZZINESS DIAGNOSES: - Dizziness and giddiness - Essential (primary) hypertension - Nicotine dependence, unspecified, uncomplicated - Other joint terminal attack controller (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 - Type 2 diabetes mellitus without complications 12/09/2022 18:55 [facility] Steve ROSARIO TYPE: Emergency DIAGNOSES: - Cellulitis of right upper limb - Arm Swelling - Rt arm pain/swelling 11/23/2022 10:03 LASHAY Shook [place] TYPE: Emergency COMPLAINT: - THINKS HE HAS INFECTION DIAGNOSES: - Dental caries, unspecified - Diseases of lips - Essential (primary) hypertension - Nicotine dependence, unspecified, uncomplicated - Other joint terminal attack controller (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 - Type 2 diabetes [...] COMPLAINT: - HAND PAIN 10/13/2022 11:40 LASHAY [place] TYPE: Emergency COMPLAINT: - MOUTH, HANDS, FEET PAIN, HEADACHE DIAGNOSES: - Essential (primary) hypertension - Localized edema - Nicotine dependence, unspecified, uncomplicated - Type 2 diabetes mellitus without complications 03/22/2022 09:10 LASHAY [place] [place] Ar[place] TYPE: Emergency COMPLAINT: - EXTREMITY PAIN/INJURY DIAGNOSES: - Essential (primary) hypertension - Nicotine dependence, unspecified, uncomplicated - Other joint terminal attack controller (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 - Other specified soft tissue disorders 03/14/2022 16:58 LASHAY Bolanoskhoi HolderTroy Arora [place] TYPE: Emergency COMPLAINT: - SKIN PROBLEM DIAGNOSES: - Delusional disorders - Disorder of the skin and subcutaneous tissue, unspecified - Essential (primary) hypertension - Nicotine dependence, unspecified, uncomplicated - Other detention (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 - Other stimulant abuse, uncomplicated - Rash and other nonspecific skin eruption 03/10/2022 13:59 LASHAY [place] HTroy Arora [place] TYPE: Emergency COMPLAINT: - MOUTH, THROAT, HANDS PAIN DIAGNOSES: - Changes in skin texture - Essential (primary) hypertension - Nicotine dependence, unspecified, uncomplicated - Other joint terminal attack controller (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 - Other stimulant abuse, uncomplicated - Paresthesia of skin 03/07/2022 01:12 LASHAY [place] HTroy Arora [place] TYPE: Emergency COMPLAINT: - ARM PAIN DIAGNOSES: - Essential (primary) hypertension - Nicotine dependence, unspecified, uncomplicated - Other joint terminal attack controller (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 - Other stimulant abuse, uncomplicated - Pain in right hand 03/03/2022 13:25 [facility] DIAGNOSES: - Pruritus, unspecified - med refill - Medication Refill 03/01/2022 17:46 [facility] DIAGNOSES: - Dermatitis, unspecified - Other skin changes - foot issue - Hallucinations - Hand Swelling 02/15/2022 01:41 LASHAY Shook [place] TYPE: Emergency COMPLAINT: - WEAKNESS DIAGNOSES: - Anemia, unspecified - Essential (primary) hypertension - Nicotine dependence, unspecified, uncomplicated - Other detention (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 - Other stimulant abuse, uncomplicated 02/10/2022 06:38 LASHAY Shook [place] TYPE: Emergency COMPLAINT: - LT HAND PAIN 02/05/2022 12:54 LASHAY Shook [place] TYPE: Emergency COMPLAINT: - HANDS PAIN 02/04/2022 11:03 LASHAY Shook [place] TYPE: Emergency COMPLAINT: - HANDS PAIN Plus 6 More Visits INPATIENT VISIT TRACKING (12 MO.) 12/09/2022 18[facility] DIAGNOSES: - Cellulitis of right upper limb - Cellulitis of right upper limb 01/28/2022 21:[address] [facility] [address] Tai AMBROCIO TYPE: Medical Surgical COMPLAINT: [...] tenosynovitis, unspecified - Synovitis and tenosynovitis, unspecified [email or web address]
[2023-01-10 08:10] VITALS: BP 173/102
== END 2023-01-10 08:09 | disposition home or self-care (01) ==
LOC: ED 07:20
DX: F15.10 Other stimulant abuse, uncomplicated (principal); R23.4 Changes in skin texture; I10 Essential (primary) hypertension; E11.9 Type 2 diabetes mellitus without complications; F17.200 Nicotine dependence, unspecified, uncomplicated; Z79.899 Other long term (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
CPT/HCPCS: 99283

== ENCOUNTER 2023-01-27 09:47 | Emergency (ER) | payer MEDICARE, OTHER ==
[~2023-01-27] VITALS: Ht 162.6 cm; Wt 52.6 kg
--- OUTSIDE RECORDS SUMMARY | ~2023-01-27 | XMS | Continuity of Care Document ---
Demographics + + + | Address | [address] | | | [place] [address] | + + + | Preferred Language | Unknown | + + + | Marital Status | Never | + + + | Zoroastrian Affiliation | Unknown | + + + | Race | White | + + + | Ethnic Group | Not or | + + + Author + + + | Author | [facility] | + + + | Organization | [facility] | + + + | Address | [address] | | | [place] [address] | + + + | Phone | | + + + Care Team Providers + + + + | Care Inclinometer Tester Name | Role | Phone | [...] and Intolerances + + + + + | date | description | facility | type | + + + + + | (no date) | Mild | [facility] | (unknown) | | | [facility] Hospital | | + + + + + Encounters No information. Functional Status No information. Immunizations No information. Medications + + + + | date | description | facility | + + + + | 2017-09-28 00:00 | | [facility] | | | Guaifenesin/Dextromethorpha | | | | n | | + + + + | 2017-09-28 00:00 | | [facility] | | | Guaifenesin/Dextromethorpha | | | | n | | + + + + | 2017-09-28 00:00 | | [facility] | | | Guaifenesin/Dextromethorpha | | | | n | | + + + + | 2017-09-28 00:00 | | [facility] | | | Guaifenesin/Dextromethorpha | | | | n | | + + + + | 2017-09-28 00:00 | | [facility] | | | Guaifenesin/Dextromethorpha | | | | n | | + + + + | 2017-09-28 00:00 | | [facility] | | | Guaifenesin/Dextromethorpha | | | | n | | + + + + | 2021-04-03 00:00 | ONDANSETRON HCL | [facility] | + + + + | 2021-04-03 00:00 | ONDANSETRON HCL | [facility] | + + + + | 2021-04-03 00:00 | ONDANSETRON HCL | [facility] | + + + + | 2021-04-03 00:00 | ONDANSETRON HCL | [facility] | + + + + | 2021-04-03 00:00 | ONDANSETRON HCL | [facility] | + + + + | 2021-04-03 00:00 | ONDANSETRON HCL | [facility] | + + + + | 2021-02-08 00:00 | TRIAMCINOLONE ACETONIDE | [facility] | + + + + | 2021-02-08 00:00 | TRIAMCINOLONE ACETONIDE | [facility] | + + + + | 2021-02-08 00:00 | TRIAMCINOLONE ACETONIDE | [facility] | + + + + | 2021-02-08 00:00 | TRIAMCINOLONE ACETONIDE | [facility] | + + + + | 2021-02-08 00:00 | TRIAMCINOLONE ACETONIDE | [facility] | + + + + | 2021-02-08 00:00 | TRIAMCINOLONE ACETONIDE | [facility] | + + + + | 2021-08-27 00:00 | OLANZAPINE | [facility] | + + + + | 2021-08-27 00:00 | OLANZAPINE | [facility] | + + + + | 2021-08-27 00:00 | OLANZAPINE | [facility] | + + + + | 2021-08-27 00:00 | OLANZAPINE | [facility] | + + + + | 2021-08-27 00:00 | OLANZAPINE | [facility] | + + + + | 2021-08-27 00:00 | OLANZAPINE | [facility] | + + + + | 2021-09-01 00:00 | OLANZAPINE | [facility] | + + + + | 2021-09-01 00:00 | OLANZAPINE | [facility] | + + + + | 2021-09-01 00:00 | OLANZAPINE | [facility] | + + + + | 2021-09-01 00:00 | OLANZAPINE | [facility] | + + + + | 2021-09-01 00:00 | OLANZAPINE | [facility] | + + + + | 2021-09-01 00:00 | OLANZAPINE | [facility] | + + + + | 2022-10-13 00:00 | DOXYCYCLINE HYCLATE | [facility] | + + + + | 2022-01-31 00:00 | AMLODIPINE BESYLATE | [facility] | + + + + | 2022-01-31 00:00 | AMLODIPINE BESYLATE | [facility] | + + + + | 2022-01-31 00:00 | AMLODIPINE BESYLATE | [facility] | + + + + | 2022-01-23 00:00 | CEPHALEXIN | [facility] | + + + + | 2022-01-23 00:00 | CEPHALEXIN | [facility] | + + + + | 2022-01-23 00:00 | CEPHALEXIN | [facility] | + + + + | 2022-01-23 00:00 | CEPHALEXIN | [facility] | + + + + | 2022-01-23 00:00 | CEPHALEXIN | [facility] | + + + + | 2022-01-23 00:00 | CEPHALEXIN | [facility] | + + + + | 2022-03-10 00:00 | CEPHALEXIN | [facility] | + + + + | 2022-03-10 00:00 | CEPHALEXIN | [facility] | + + + + | 2017-09-07 00:00 | IBUPROFEN | [facility] | + + + + | 2017-09-07 00:00 | IBUPROFEN | [facility] | + + + + | 2017-09-07 00:00 | IBUPROFEN | [facility] | + + + + | 2017-09-07 00:00 | IBUPROFEN | [facility] | + + + + | 2017-09-07 00:00 | IBUPROFEN | [facility] | + + + + | 2017-09-07 00:00 | IBUPROFEN | [facility] | + + + + | 2023-01-01 00:00 | PERMETHRIN | [facility] | + + + + | 2023-01-01 00:00 | PERMETHRIN | [facility] | + + + + | 2019-01-27 00:00 | CEPHALEXIN | [facility] | + + + + | 2019-01-27 00:00 | CEPHALEXIN | [facility] | + + + + | 2019-01-27 00:00 | CEPHALEXIN | [facility] | + + + + | 2019-01-27 00:00 | CEPHALEXIN | [facility] | + + + + | 2019-01-27 00:00 | CEPHALEXIN | [facility] | + + + + | 2019-01-27 00:00 | CEPHALEXIN | [facility] | + + + + | 2017-08-07 00:00 | AZITHROMYCIN | [facility] | + + + + | 2017-08-07 00:00 | AZITHROMYCIN | [facility] | + + + + | 2017-08-07 00:00 | AZITHROMYCIN | [facility] | + + + + | 2017-08-07 00:00 | AZITHROMYCIN | [facility] | + + + + | 2017-08-07 00:00 | AZITHROMYCIN | [facility] | + + + + | 2017-08-07 00:00 | AZITHROMYCIN | [facility] | + + + + | 2022-03-14 00:00 | BETAMETHASONE DIPROPIONATE | [facility] | | | | | + + + + | 2016-11-17 00:00 | CEPHALEXIN | [facility] | + + + + | 2016-11-17 00:00 | CEPHALEXIN | [facility] | + + + + | 2016-11-17 00:00 | CEPHALEXIN | [facility] | + + + + | 2016-11-17 00:00 | CEPHALEXIN | [facility] | + + + + | 2016-11-17 00:00 | CEPHALEXIN | [facility] | + + + + | 2016-11-17 00:00 | CEPHALEXIN | [facility] | + + + + | 2016-11-20 00:00 | CEPHALEXIN | [facility] | + + + + | 2016-11-20 00:00 | CEPHALEXIN | [facility] | + + + + | 2016-11-20 00:00 | CEPHALEXIN | [facility] | + + + + | 2016-11-20 00:00 | CEPHALEXIN | [facility] | + + + + | 2016-11-20 00:00 | CEPHALEXIN | [facility] | + + + + | 2016-11-20 00:00 | CEPHALEXIN | [facility] | + + + + | 2022-02-03 00:00 | CEPHALEXIN | [facility] | + + + + | 2022-02-05 00:00 | CEPHALEXIN | [facility] | + + + + | 2022-02-06 00:00 | CEPHALEXIN | [facility] | + + + + | 2022-02-06 00:00 | CEPHALEXIN | [facility] | + + + + | 2022-02-07 00:00 | CEPHALEXIN | [facility] | + + + + | 2022-02-10 00:00 | CEPHALEXIN | [facility] | + + + + | 2022-02-16 00:00 | CEPHALEXIN | [facility] | + + + + | 2022-03-14 00:00 | CEPHALEXIN | [facility] | + + + + | 2022-03-19 00:00 | CEPHALEXIN | [facility] | + + + + | 2022-03-22 00:00 | CEPHALEXIN | [facility] | + + + + | 2022-10-13 00:00 | CEPHALEXIN | [facility] | + + + + | 2022-10-31 00:00 | CEPHALEXIN | [facility] | + + + + | 2022-11-21 00:00 | CEPHALEXIN | [facility] | + + + + | 2022-11-22 00:00 | CEPHALEXIN | [facility] | + + + + | 2022-11-23 00:00 | CEPHALEXIN | [facility] | + + + + | 2022-12-16 00:00 | CEPHALEXIN | [facility] | + + + + | 2022-12-21 00:00 | CEPHALEXIN | [facility] | + + + + | 2023-01-01 00:00 | CEPHALEXIN | [facility] | + + + + | 2023-01-10 00:00 | CEPHALEXIN | [facility] | + + + + | 2020-07-15 00:00 | Erythromycin Base | [facility] | + + + + | 2020-07-15 00:00 | Erythromycin Base | [facility] | + + + + | 2020-07-15 00:00 | Erythromycin Base | [facility] | + + + + | 2020-07-15 00:00 | Erythromycin Base | [facility] | + + + + | 2020-07-15 00:00 | Erythromycin Base | [facility] | + + + + | 2020-07-15 00:00 | Erythromycin Base | [facility] | + + + + | 2022-10-13 00:00 | ONDANSETRON | [facility] | + + + + | 2022-02-03 00:00 | Oseltamivir Phosphate | [facility] | + + + + | 2022-02-05 00:00 | Oseltamivir Phosphate | [facility] | + + + + | 2022-02-06 00:00 | Oseltamivir Phosphate | [facility] | + + + + | 2022-02-06 00:00 | Oseltamivir Phosphate | [facility] | + + + + | 2022-02-07 00:00 | Oseltamivir Phosphate | [facility] | + + + + | 2022-02-10 00:00 | Oseltamivir Phosphate | [facility] | + + + + | 2022-02-16 00:00 | Oseltamivir Phosphate | [facility] | + + + + | 2022-03-14 00:00 | Oseltamivir Phosphate | [facility] | + + + + | 2022-03-19 00:00 | Oseltamivir Phosphate | [facility] | + + + + | 2022-03-22 00:00 | Oseltamivir Phosphate | [facility] | + + + + | 2022-10-13 00:00 | Oseltamivir Phosphate | [facility] | + + + + | 2022-10-31 00:00 | Oseltamivir Phosphate | [facility] | + + + + | 2022-11-21 00:00 | Oseltamivir Phosphate | [facility] | + + + + | 2022-11-22 00:00 | Oseltamivir Phosphate | [facility] | + + + + | 2022-11-23 00:00 | Oseltamivir Phosphate | [facility] | + + + + | 2022-12-16 00:00 | Oseltamivir Phosphate | [facility] | + + + + | 2022-12-21 00:00 | Oseltamivir Phosphate | [facility] | + + + + | 2023-01-01 00:00 | Oseltamivir Phosphate | [facility] | + + + + | 2023-01-10 00:00 | Oseltamivir Phosphate | [facility] | + + + + | 2022-02-03 00:00 | PIMOZIDE | [facility] | + + + + | 2022-02-05 00:00 | PIMOZIDE | [facility] | + + + + | 2022-02-06 00:00 | PIMOZIDE | [facility] | + + + + | 2022-02-06 00:00 | PIMOZIDE | [facility] | + + + + | 2022-02-07 00:00 | PIMOZIDE | [facility] | + + + + | 2022-02-10 00:00 | PIMOZIDE | [facility] | + + + + | 2022-02-16 00:00 | PIMOZIDE | [facility] | + + + + | 2022-03-14 00:00 | PIMOZIDE | [facility] | + + + + | 2022-03-19 00:00 | PIMOZIDE | [facility] | + + + + | 2022-03-22 00:00 | PIMOZIDE | [facility] | + + + + | 2022-10-13 00:00 | PIMOZIDE | [facility] | + + + + | 2022-10-31 00:00 | PIMOZIDE | [facility] | + + + + | 2022-11-21 00:00 | PIMOZIDE | [facility] | + + + + | 2022-11-22 00:00 | PIMOZIDE | [facility] | + + + + | 2022-11-23 00:00 | PIMOZIDE | [facility] | + + + + | 2022-12-16 00:00 | PIMOZIDE | [facility] | + + + + | 2022-12-21 00:00 | PIMOZIDE | [facility] | + + + + | 2023-01-01 00:00 | PIMOZIDE | [facility] | + + + + | 2023-01-10 00:00 | PIMOZIDE | [facility] | + + + + | 2017-06-18 00:00 | predniSONE | [facility] | + + + + | 2017-06-18 00:00 | predniSONE | [facility] | + + + + | 2017-06-18 00:00 | predniSONE | [facility] | + + + + | 2017-06-18 00:00 | predniSONE | [facility] | + + + + | 2017-06-18 00:00 | predniSONE | [facility] | + + + + | 2017-06-18 00:00 | predniSONE | [facility] | + + + + | 2020-01-23 00:00 | predniSONE | [facility] | + + + + | 2020-01-23 00:00 | predniSONE | [facility] | + + + + | 2020-01-23 00:00 | predniSONE | [facility] | + + + + | 2020-01-23 00:00 | predniSONE | [facility] | + + + + | 2020-01-23 00:00 | predniSONE | [facility] | + + + + | 2020-01-23 00:00 | predniSONE | [facility] | + + + + | 2022-03-22 00:00 | predniSONE | [facility] | + + + + | 2016-05-14 00:00 | HALOPERIDOL | [facility] | + + + + | 2016-05-14 00:00 | HALOPERIDOL | [facility] | + + + + | 2016-05-14 00:00 | HALOPERIDOL | [facility] | + + + + | 2016-05-14 00:00 | HALOPERIDOL | [facility] | + + + + | 2016-05-14 00:00 | HALOPERIDOL | [facility] | + + + + | 2016-05-14 00:00 | HALOPERIDOL | [facility] | + + + + | 2018-02-21 00:00 | HALOPERIDOL | [facility] | + + + + | 2018-02-21 00:00 | HALOPERIDOL | [facility] | + + + + | 2018-02-21 00:00 | HALOPERIDOL | [facility] | + + + + | 2018-02-21 00:00 | HALOPERIDOL | [facility] | + + + + | 2018-02-21 00:00 | HALOPERIDOL | [facility] | + + + + | 2018-02-21 00:00 | HALOPERIDOL | [facility] | + + + + | 2022-02-03 00:00 | HALOPERIDOL | [facility] | + + + + | 2022-02-05 00:00 | HALOPERIDOL | [facility] | + + + + | 2022-02-06 00:00 | HALOPERIDOL | [facility] | + + + + | 2022-02-06 00:00 | HALOPERIDOL | [facility] | + + + + | 2022-02-07 00:00 | HALOPERIDOL | [facility] | + + + + | 2022-02-10 00:00 | HALOPERIDOL | [facility] | + + + + | 2022-02-16 00:00 | HALOPERIDOL | [facility] | + + + + | 2022-03-14 00:00 | HALOPERIDOL | [facility] | + + + + | 2022-03-19 00:00 | HALOPERIDOL | [facility] | + + + + | 2022-03-22 00:00 | HALOPERIDOL | [facility] | + + + + | 2022-10-13 00:00 | HALOPERIDOL | [facility] | + + + + | 2022-10-31 00:00 | HALOPERIDOL | [facility] | + + + + | 2022-11-21 00:00 | HALOPERIDOL | [facility] | + + + + | 2022-11-22 00:00 | HALOPERIDOL | [facility] | + + + + | 2022-11-23 00:00 | HALOPERIDOL | [facility] | + + + + | 2022-12-16 00:00 | HALOPERIDOL | [facility] | + + + + | 2022-12-21 00:00 | HALOPERIDOL | [facility] | + + + + | 2023-01-01 00:00 | HALOPERIDOL | [facility] | + + + + | 2023-01-10 00:00 | HALOPERIDOL | [facility] | + + + + | 2021-07-02 00:00 | LISINOPRIL | [facility] | + + + + | 2021-07-02 00:00 | LISINOPRIL | [facility] | + + + + | 2021-07-02 00:00 | LISINOPRIL | [facility] | + + + + | 2021-07-02 00:00 | LISINOPRIL | [facility] | + + + + | 2021-07-02 00:00 | LISINOPRIL | [facility] | + + + + | 2021-07-02 00:00 | LISINOPRIL | [facility] | + + + + | 2023-01-01 00:00 | LISINOPRIL | [facility] | + + + + | 2023-01-01 00:00 | LISINOPRIL | [facility] | + + + + | 2023-01-10 00:00 | LISINOPRIL | [facility] | + + + + | 2023-01-01 00:00 | HYDROCHLOROTHIAZIDE | [facility] | + + + + | 2023-01-01 00:00 | HYDROCHLOROTHIAZIDE | [facility] | + + + + | 2023-01-10 00:00 | HYDROCHLOROTHIAZIDE | [facility] | + + + + | 2022-11-22 00:00 | AMOXICILLIN/POTASSIUM CLAV | [facility] | | | | | + + + + | 2022-11-22 00:00 | AMOXICILLIN/POTASSIUM CLAV | [facility] | | | | | + + + + | 2017-09-28 00:00 | ALBUTEROL SULFATE | [facility] | + + + + | 2017-09-28 00:00 | ALBUTEROL SULFATE | [facility] | + + + + | 2017-09-28 00:00 | ALBUTEROL SULFATE | [facility] | + + + + | 2017-09-28 00:00 | ALBUTEROL SULFATE | [facility] | + + + + | 2017-09-28 00:00 | ALBUTEROL SULFATE | [facility] | + + + + | 2017-09-28 00:00 | ALBUTEROL SULFATE | [facility] | + + + + | 2017-09-07 00:00 | CLINDAMYCIN HCL | [facility] | + + + + | 2017-09-07 00:00 | CLINDAMYCIN HCL | [facility] | + + + + | 2017-09-07 00:00 | CLINDAMYCIN HCL | [facility] | + + + + | 2017-09-07 00:00 | CLINDAMYCIN HCL | [facility] | + + + + | 2017-09-07 00:00 | CLINDAMYCIN HCL | [facility] | + + + + | 2017-09-07 00:00 | CLINDAMYCIN HCL | [facility] | + + + + | 2020-06-16 00:00 | CLINDAMYCIN HCL | [facility] | + + + + | 2020-06-16 00:00 | CLINDAMYCIN HCL | [facility] | + + + + | 2020-06-16 00:00 | CLINDAMYCIN HCL | [facility] | + + + + | 2020-06-16 00:00 | CLINDAMYCIN HCL | [facility] | + + + + | 2020-06-16 00:00 | CLINDAMYCIN HCL | [facility] | + + + + | 2020-06-16 00:00 | CLINDAMYCIN HCL | [facility] | + + + + | 2020-07-12 00:00 | CLINDAMYCIN HCL | [facility] | + + + + | 2020-07-12 00:00 | CLINDAMYCIN HCL | [facility] | + + + + | 2020-07-12 00:00 | CLINDAMYCIN HCL | [facility] | + + + + | 2020-07-12 00:00 | CLINDAMYCIN HCL | [facility] | + + + + | 2020-07-12 00:00 | CLINDAMYCIN HCL | [facility] | + + + + | 2020-07-12 00:00 | CLINDAMYCIN HCL | [facility] | + + + + | 2022-11-23 00:00 | CLINDAMYCIN HCL | [facility] | + + + + | 2022-11-23 00:00 | CLINDAMYCIN HCL | [facility] | + + + + | 2017-08-07 00:00 | METHYLPREDNISOLONE | [facility] | + + + + | 2017-08-07 00:00 | METHYLPREDNISOLONE | [facility] | + + + + | 2017-08-07 00:00 | METHYLPREDNISOLONE [facility] | + + + + | 2017-08-07 00:00 | METHYLPREDNISOLONE | [facility] | + + + + | 2017-08-07 00:00 | METHYLPREDNISOLONE | [facility] | + + + + | 2017-08-07 00:00 | METHYLPREDNISOLONE | [facility] | + + + + | 2021-08-27 00:00 | Chlorhexidine Gluconate | [facility] | + + + + | 2021-08-27 00:00 | Chlorhexidine Gluconate | [facility] | + + + + | 2021-08-27 00:00 | Chlorhexidine Gluconate | [facility] | + + + + | 2021-08-27 00:00 | Chlorhexidine Gluconate | [facility] | + + + + | 2021-08-27 00:00 | Chlorhexidine Gluconate | [facility] | + + + + | 2021-08-27 00:00 | Chlorhexidine Gluconate | [facility] | + + + + | 2014-02-25 00:00 | | [facility] | | | SULFAMETHOXAZOLE/TRIMETHOPR | | | | IM DS | | + + + + | 2014-02-25 00:00 | | [facility] | | | SULFAMETHOXAZOLE/TRIMETHOPR | | | | IM DS | | + + + + | 2014-02-25 00:00 | | [facility] | | | SULFAMETHOXAZOLE/TRIMETHOPR | | | | IM DS | | + + + + | 2014-02-25 00:00 | | [facility] | | | SULFAMETHOXAZOLE/TRIMETHOPR | | | | IM DS | | + + + + | 2014-02-25 00:00 | | [facility] | | | SULFAMETHOXAZOLE/TRIMETHOPR | | | | IM DS | | + + + + | 2014-02-25 00:00 | | [facility] | | | SULFAMETHOXAZOLE/TRIMETHOPR | | | | IM DS | | + + + + | 2017-10-08 00:00 | | [facility] | | | SULFAMETHOXAZOLE/TRIMETHOPR | | | | IM DS | | + + + + | 2017-10-08 00:00 | | [facility] | | | SULFAMETHOXAZOLE/TRIMETHOPR | | | | IM DS | | + + + + | 2017-10-08 00:00 | | [facility] | | | SULFAMETHOXAZOLE/TRIMETHOPR | | | | IM DS | | + + + + | 2017-10-08 00:00 | | [facility] | | | SULFAMETHOXAZOLE/TRIMETHOPR | | | | IM DS | | + + + + | 2017-10-08 00:00 | | [facility] | | | SULFAMETHOXAZOLE/TRIMETHOPR | | | | IM DS | | + + + + | 2017-10-08 00:00 | | [facility] | | | SULFAMETHOXAZOLE/TRIMETHOPR | | | | IM DS | | + + + + | 2022-01-31 00:00 | | [facility] | | | SULFAMETHOXAZOLE/TRIMETHOPR | | | | IM DS | | + + + + | 2017-06-18 00:00 | ALBUTEROL SULFATE | [facility] | + + + + | 2017-06-18 00:00 | ALBUTEROL SULFATE | [facility] | + + + + | 2017-06-18 00:00 | ALBUTEROL SULFATE | [facility] | + + + + | 2017-06-18 00:00 | ALBUTEROL SULFATE | [facility] | + + + + | 2017-06-18 00:00 | ALBUTEROL SULFATE | [facility] | + + + + | 2017-06-18 00:00 | ALBUTEROL SULFATE | [facility] | + + + + | 2017-08-07 00:00 | ALBUTEROL SULFATE | [facility] | + + + + | 2017-08-07 00:00 | ALBUTEROL SULFATE | [facility] | + + + + | 2017-08-07 00:00 | ALBUTEROL SULFATE | [facility] | + + + + | 2017-08-07 00:00 | ALBUTEROL SULFATE | [facility] | + + + + | 2017-08-07 00:00 | ALBUTEROL SULFATE | [facility] | + + + + | 2017-08-07 00:00 | ALBUTEROL SULFATE | [facility] | + + + + | 2022-02-03 00:00 | ONDANSETRON | [facility] | + + + + | 2022-02-05 00:00 | ONDANSETRON | [facility] | + + + + | 2022-02-06 00:00 | ONDANSETRON | [facility] | + + + + | 2022-02-06 00:00 | ONDANSETRON | [facility] | + + + + | 2022-02-07 00:00 | ONDANSETRON | [facility] | + + + + | 2022-02-10 00:00 | ONDANSETRON | [facility] | + + + + | 2022-02-16 00:00 | ONDANSETRON | [facility] | + + + + | 2022-03-14 00:00 | ONDANSETRON | [facility] | + + + + | 2022-03-19 00:00 | ONDANSETRON | [facility] | + + + + | 2022-03-22 00:00 | ONDANSETRON | [facility] | + + + + | 2022-10-13 00:00 | ONDANSETRON | [facility] | + + + + | 2022-10-31 00:00 | ONDANSETRON | [facility] | + + + + | 2022-11-21 00:00 | ONDANSETRON | [facility] | + + + + | 2022-11-22 00:00 | ONDANSETRON | [facility] | + + + + | 2022-11-23 00:00 | ONDANSETRON | [facility] | + + + + | 2022-12-16 00:00 | ONDANSETRON | [facility] | + + + + | 2022-12-21 00:00 | ONDANSETRON | [facility] | + + + + | 2023-01-01 00:00 | ONDANSETRON | [facility] | + + + + | 2023-01-10 00:00 | ONDANSETRON | [facility] | + + + + | 2020-12-15 00:00 | MECLIZINE HCL | [facility] | + + + + | 2020-12-15 00:00 | MECLIZINE HCL | [facility] | + + + + | 2020-12-15 00:00 | MECLIZINE HCL | [facility] | + + + + | 2020-12-15 00:00 | MECLIZINE HCL | [facility] | + + + + | 2020-12-15 00:00 | MECLIZINE HCL | [facility] | + + + + | 2020-12-15 00:00 | MECLIZINE HCL | [facility] | + + + + Problems + + + + | date | description | facility | + + + + | 2016-05-14 00:00 | Encounter for medication | [facility] | | | refill | | + + + + | 2016-05-14 00:00 | Encounter for medication | [facility] | | | refill | | + + + + | 2016-05-14 00:00 | Encounter for medication | [facility] | | | refill | | + + + + | 2016-05-14 00:00 | [facility] [facility] | [facility] | | + + + + | 2016-05-14 00:00 | Encounter for medication | [facility] | | | refill | | + + + + | 2016-05-14 00:00 | Encounter for medication | [facility] | | | refill | | + + + + | 2016-08-19 00:00 | Encounter for medical | [facility] | | | screening examination | | + + + + | 2016-08-19 00:00 | Encounter for medical | [facility] | | | screening examination | | + + + + | 2016-08-19 00:00 | Encounter for medical | [facility] | | | screening examination | | + + + + | 2016-08-19 00:00 | Encounter for medical | [facility] | | | screening examination | | + + + + | 2016-08-19 00:00 | Encounter for medical | [facility] | | | screening examination | | + + + + | 2016-08-19 00:00 | Encounter for medical | [facility] | | | screening examination | | + + + + | 2016-10-10 00:00 | Constipation | [facility] | + + + + | 2016-10-10 00:00 | Constipation | [facility] | + + + + | 2016-10-10 00:00 | Constipation | [facility] | + + + + | 2016-10-10 00:00 | Constipation | [facility] | + + + + | 2016-10-10 00:00 | Constipation | [facility] | + + + + | 2016-10-10 00:00 | Constipation | [facility] | + + + + | 2016-10-10 00:00 | Nonspecific abdominal pain | [facility] | | | | | + + + + | 2016-10-10 00:00 | Nonspecific abdominal pain | [facility] | | | | | + + + + | 2016-10-10 00:00 | Nonspecific abdominal pain | [facility] | | | | | + + + + | 2016-10-10 00:00 | Nonspecific abdominal pain | [facility] | | | | | + + + + | 2016-10-10 00:00 | Nonspecific abdominal pain | [facility] | | | | | + + + + | 2016-10-10 00:00 | Nonspecific abdominal pain | [facility] | | | | | + + + + | 2016-10-31 00:00 | Methamphetamine abuse | [facility] | + + + + | 2016-10-31 00:00 | Methamphetamine abuse | [facility] | + + + + | 2016-10-31 00:00 | Methamphetamine abuse | [facility] | + + + + | 2016-10-31 00:00 | Methamphetamine abuse | [facility] | + + + + | 2016-10-31 00:00 | Methamphetamine abuse | [facility] | + + + + | 2016-10-31 00:00 | Methamphetamine abuse | [facility] | + + + + | 2016-10-31 00:00 | Chronic abdominal pain | [facility] | + + + + | 2016-10-31 00:00 | Chronic abdominal pain | [facility] | + + + + | 2016-10-31 00:00 | Chronic abdominal pain | [facility] | + + + + | 2016-10-31 00:00 | Chronic abdominal pain | [facility] | + + + + | 2016-10-31 00:00 | Chronic abdominal pain | [facility] | + + + + | 2016-10-31 00:00 | Chronic abdominal pain | [facility] | + + + + | 2016-10-31 00:00 | Weight loss | [facility] | + + + + | 2016-10-31 00:00 | Weight loss | [facility] | + + + + | 2016-10-31 00:00 | Weight loss | [facility] | + + + + | 2016-10-31 00:00 | Weight loss | [facility] | + + + + | 2016-10-31 00:00 | Weight loss | [facility] | + + + + | 2016-10-31 00:00 | Weight loss | [facility] | + + + + | 2016-11-17 00:00 | Cellulitis | [facility] | + + + + | 2016-11-17 00:00 | Cellulitis | [facility] | + + + + | 2016-11-17 00:00 | Cellulitis | [facility] | + + + + | 2016-11-17 00:00 | Cellulitis | [facility] | + + + + | 2016-11-17 00:00 | Cellulitis | [facility] | + + + + | 2016-11-17 00:00 | Cellulitis | [facility] | + + + + | 2017-01-04 00:00 | Mononeuropathy of right | [facility]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 | | + + + + | 2017-01-04 00:00 | Mononeuropathy of right | [facility]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 | | + + + + | 2017-01-04 00:00 | Mononeuropathy of right | [facility]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 | | + + + + | 2017-01-04 00:00 | Mononeuropathy of right | [facility]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 | | + + + + | 2017-01-04 00:00 | Mononeuropathy of right | [facility]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 | | + + + + | 2017-01-04 00:00 | Mononeuropathy of right | [facility]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 | | + + + + | 2017-06-09 00:00 | Patient left without being | [facility] | | | seen | | + + + + | 2017-06-09 00:00 | Patient left without being | [facility] | | | seen | | + + + + | 2017-06-09 00:00 | Patient left without being | [facility] | | | seen | | + + + + | 2017-06-09 00:00 | Patient left without being | [facility] | | | seen | | + + + + | 2017-06-09 00:00 | Patient left without being | [facility] | | | seen | | + + + + | 2017-06-09 00:00 | Patient left without being | [facility] | | | seen | | + + + + | 2017-06-18 00:00 | Obstructive chronic | [facility] | | | bronchitis with | | | | exacerbation | | + + + + | 2017-06-18 00:00 | Obstructive chronic | [facility] | | | bronchitis with | | | | exacerbation | | + + + + | 2017-06-18 00:00 | Obstructive chronic | [facility] | | | bronchitis with | | | | exacerbation | | + + + + | 2017-06-18 00:00 | Obstructive chronic | [facility] | | | bronchitis with | | | | exacerbation | | + + + + | 2017-06-18 00:00 | Obstructive chronic | [facility] | | | bronchitis with | | | | exacerbation | | + + + + | 2017-06-18 00:00 | Obstructive chronic | [facility] | | | bronchitis with | | | | exacerbation | | + + + + | 2017-06-18 00:00 | Dyspnea on exertion | [facility] | + + + + | 2017-06-18 00:00 | Dyspnea on exertion | [facility] | + + + + | 2017-06-18 00:00 | Dyspnea on exertion | [facility] | + + + + | 2017-06-18 00:00 | Dyspnea on exertion | [facility] | + + + + | 2017-06-18 00:00 | Dyspnea on exertion | [facility] | + + + + | 2017-06-18 00:00 | Dyspnea on exertion | [facility] | + + + + | 2017-08-07 00:00 | Bronchitis | [facility] | + + + + | 2017-08-07 00:00 | Bronchitis | [facility] | + + + + | 2017-08-07 00:00 | Bronchitis | [facility] | + + + + | 2017-08-07 00:00 | Bronchitis | [facility] | + + + + | 2017-08-07 00:00 | Bronchitis | [facility] | + + + + | 2017-08-07 00:00 | Bronchitis | [facility] | + + + + | 2017-09-07 00:00 | Paronychia of finger of | [facility] | | | right hand | | + + + + | 2017-09-07 00:00 | Paronychia of finger of [facility] | | | right hand | | + + + + | 2017-09-07 00:00 | Paronychia of finger of [facility] | | | right hand | | + + + + | 2017-09-07 00:00 | Paronychia of finger of [facility] | | | right hand | | + + + + | 2017-09-07 00:00 | Paronychia of finger of [facility] | | | right hand | | + + + + | 2017-09-07 00:00 | Paronychia of finger of | [facility] | | | right hand | | + + + + | 2017-09-28 00:00 | Upper respiratory tract | [facility] | | | infection | | + + + + | 2017-09-28 00:00 | Upper respiratory tract | [facility] | | | infection | | + + + + | 2017-09-28 00:00 | Upper respiratory tract | [facility] | | | infection | | + + + + | 2017-09-28 00:00 | Upper respiratory tract | [facility] | | | infection | | + + + + | 2017-09-28 00:00 | Upper respiratory tract | [facility] | | | infection | | + + + + | 2017-09-28 00:00 | Upper respiratory tract | [facility] | | | infection | | + + + + | 2019-01-27 00:00 | Cellulitis of lower | [facility] | | | extremity | | + + + + | 2019-01-27 00:00 | Cellulitis of lower | [facility] | | | extremity | | + + + + | 2019-01-27 00:00 | Cellulitis of lower | [facility] | | | extremity | | + + + + | 2019-01-27 00:00 | Cellulitis of lower | [facility] | | | extremity | | + + + + | 2019-01-27 00:00 | Cellulitis of lower | [facility] | | | extremity | | + + + + | 2019-01-27 00:00 | Cellulitis of lower | [facility] | | | extremity | | + + + + | 2020-01-23 00:00 | Gout | [facility] | + + + + | 2020-01-23 00:00 | Gout | [facility] | + + + + | 2020-01-23 00:00 | Gout | [facility] | + + + + | 2020-01-23 00:00 | Gout | [facility] | + + + + | 2020-01-23 00:00 | Gout | [facility] | + + + + | 2020-01-23 00:00 | Gout | [facility] | + + + + | 2020-05-09 00:00 | Rectal fissure | [facility] | + + + + | 2020-05-09 00:00 | Rectal fissure | [facility] | + + + + | 2020-05-09 00:00 | Rectal fissure | [facility] | + + + + 2020-05-09 00:00 | Rectal fissure | [facility] | + + + + | 2020-05-09 00:00 | Rectal fissure | [facility] | + + + + | 2020-05-09 00:00 | Rectal fissure | [facility] | + + + + | 2020-07-15 00:00 | Cannabis abuse | [facility] | + + + + | 2020-07-15 00:00 | Cannabis abuse | [facility] | + + + + | 2020-07-15 00:00 | Cannabis abuse | [facility] | + + + + | 2020-07-15 00:00 | Cannabis abuse | [facility] | + + + + | 2020-07-15 00:00 | Cannabis abuse | [facility] | + + + + | 2020-07-15 00:00 | Cannabis abuse | [facility] | + + + + 2020-07-15 00:00 | Acute kidney injury | [facility] | + + + + | 2020-07-15 00:00 | Acute kidney injury | [facility] | + + + + | 2020-07-15 00:00 | Acute kidney injury | [facility] | + + + + | 2020-07-15 00:00 | Acute kidney injury | [facility] | + + + + | 2020-07-15 00:00 | Acute kidney injury | [facility] | + + + + | 2020-07-15 00:00 | Acute kidney injury | [facility] | + + + + | 2020-07-15 00:00 | Elevated transaminase | [facility] | | | measurement | | + + + + | 2020-07-15 00:00 | Elevated transaminase | [facility] | | | measurement | | + + + + | 2020-07-15 00:00 | Elevated transaminase | [facility] | | | measurement | | + + + + | 2020-07-15 00:00 | Elevated transaminase | [facility] | | | measurement | | + + + + | 2020-07-15 00:00 | Elevated transaminase | [facility] | | | measurement | | + + + + | 2020-07-15 00:00 | Elevated transaminase | [facility] | | | measurement | | + + + + | 2020-07-15 00:00 | Abrasion of left cornea | [facility] | + + + + | 2020-07-15 00:00 | Abrasion of left cornea | [facility] | + + + + | 2020-07-15 00:00 | Abrasion of left cornea | [facility] | + + + + 2020-07-15 00:00 | Abrasion of left cornea | [facility] | + + + + 2020-07-15 00:00 | Abrasion of left cornea | [facility] | + + + + | 2020-07-15 00:00 | Abrasion of left cornea | [facility] | + + + + | 2020-09-17 00:00 | 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[facility] | + + + + | 2020-09-17 00:00 | 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[facility] | + + + + | 2020-09-17 00:00 | 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[facility] | + + + + | 2020-09-17 00:00 | 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[facility] | + + + + | 2020-09-17 00:00 | 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[facility] | + + + + | 2020-09-17 00:00 | 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[facility] | + + + + | 2020-11-13 00:00 | Drug use | [facility] | + + + + | 2020-11-13 00:00 | Drug use | [facility] | + + + + | 2020-11-13 00:00 | Drug use | [facility] | + + + + | 2020-11-13 00:00 | Drug use | [facility] | + + + + | 2020-11-13 00:00 | Drug use | [facility] | + + + + | 2020-11-13 00:00 | Drug use | [facility] | + + + + | 2020-12-15 00:00 | Vertigo | [facility] | + + + + | 2020-12-15 00:00 | Vertigo | [facility] | + + + + | 2020-12-15 00:00 | Vertigo | [facility] | + + + + | 2020-12-15 00:00 | Vertigo | [facility] | + + + + | 2020-12-15 00:00 | Vertigo | [facility] | + + + + | 2020-12-15 00:00 | Vertigo | [facility] | + + + + | 2021-02-08 00:00 | Eczema of both hands | [facility] | + + + + | 2021-02-08 00:00 | Eczema of both hands | [facility] | + + + + | 2021-02-08 00:00 | Eczema of both hands | [facility] | + + + + | 2021-02-08 00:00 | Eczema of both hands | [facility] | + + + + | 2021-02-08 00:00 | Eczema of both hands | [facility] | + + + + | 2021-02-08 00:00 | Eczema of both hands | [facility] | + + + + | 2021-04-03 00:00 | Dehydration | [facility] | + + + + | 2021-04-03 00:00 | Dehydration | [facility] | + + + + | 2021-04-03 00:00 | Dehydration | [facility] | + + + + | 2021-04-03 00:00 | Dehydration | [facility] | + + + + | 2021-04-03 00:00 | Dehydration | [facility] | + + + + | 2021-04-03 00:00 | Dehydration | [facility] | + + + + | 2021-04-03 00:00 | Enteritis | [facility] | + + + + | 2021-04-03 00:00 | Enteritis | [facility] | + + + + | 2021-04-03 00:00 | Enteritis | [facility] | + + + + | 2021-04-03 00:00 | Enteritis | [facility] | + + + + | 2021-04-03 00:00 | Enteritis | [facility] | + + + + | 2021-04-03 00:00 | Enteritis | [facility] | + + + + | 2021 00:00 | Parasite not detected | [facility] | + + + + | 2021 00:00 | Parasite not detected | [facility] | + + + + | 2021 00:00 | Parasite not detected | [facility] | + + + + | 2021 00:00 | Parasite not detected | [facility] | + + + + | 2021 00:00 | Parasite not detected | [facility] | + + + + | 2021 00:00 | Parasite not detected | [facility] | + + + + | 2021 00:00 | Pain of hand | [facility] | + + + + | 2021 00:00 | Pain of hand | [facility] | + + + + | 2021 00:00 | Pain of hand | [facility] | + + + + | 2021 00:00 | Pain of hand | [facility] | + + + + | 2021 00:00 | Pain of hand | [facility] | + + + + | 2021 00:00 | Pain of hand | [facility] | + + + + | 2021-05-18 00:00 | Viral infection | [facility] | + + + + | 2021-05-18 00:00 | Viral infection | [facility] | + + + + | 2021-05-18 00:00 | Viral infection | [facility] | + + + + | 2021-05-18 00:00 | Viral infection | [facility] | + + + + | 2021-05-18 00:00 | Viral infection | [facility] | + + + + | 2021-05-18 00:00 | Viral infection | [facility] | + + + + | 2021-07-02 00:00 | Acute bronchitis | [facility] | + + + + | 2021-07-02 00:00 | Acute bronchitis | [facility] | + + + + | 2021-07-02 00:00 | Acute bronchitis | [facility] | + + + + | 2021-07-02 00:00 | Acute bronchitis | [facility] | + + + + | 2021-07-02 00:00 | Acute bronchitis | [facility] | + + + + | 2021-07-02 00:00 | Acute bronchitis | [facility] | + + + + | 2021-07-13 00:00 | Dizziness | [facility] | + + + + | 2021-07-13 00:00 | Dizziness | [facility] | + + + + | 2021-07-13 00:00 | Dizziness | [facility] | + + + + | 2021-07-13 00:00 | Dizziness | [facility] | + + + + | 2021-07-13 00:00 | Dizziness | [facility] | + + + + | 2021-07-13 00:00 | Dizziness | [facility] | + + + + | 2021-08-27 00:00 | Schizoaffective disorder | [facility] | + + + + | 2021-08-27 00:00 | Schizoaffective disorder | [facility] | + + + + | 2021-08-27 00:00 | Schizoaffective disorder | [facility] | + + + + | 2021-08-27 00:00 | Schizoaffective disorder | [facility] | + + + + | 2021-08-27 00:00 | Schizoaffective disorder | [facility] | + + + + | 2021-08-27 00:00 | Schizoaffective disorder | [facility] | + + + + | 2021-08-27 00:00 | Stomatitis | [facility] | + + + + | 2021-08-27 00:00 | Stomatitis | [facility] | + + + + | 2021-08-27 00:00 | Stomatitis | [facility] | + + + + | 2021-08-27 00:00 | Stomatitis | [facility] | + + + + | 2021-08-27 00:00 | Stomatitis | [facility] | + + + + | 2021-08-27 00:00 | Stomatitis | [facility] | + + + + | 2021-09-22 00:00 | Vomiting | [facility] | + + + + | 2021-09-22 00:00 | Vomiting | [facility] | + + + + | 2021-09-22 00:00 | Vomiting | [facility] | + + + + | 2021-09-22 00:00 | Vomiting | [facility] | + + + + | 2021-09-22 00:00 | Vomiting | [facility] | + + + + | 2021-09-22 00:00 | Vomiting | [facility] | + + + + | 2021-11-12 00:00 | Pneumonia | [facility] | + + + + | 2021-11-12 00:00 | Pneumonia | [facility] | + + + + | 2021-11-12 00:00 | Pneumonia | [facility] | + + + + | 2021-11-12 00:00 | Pneumonia | [facility] | + + + + | 2021-11-12 00:00 | Pneumonia | [facility] | + + + + | 2021-11-12 00:00 | Pneumonia | [facility] | + + + + | 2022-01-03 00:00 | Dental abscess | [facility] | + + + + | 2022-01-03 00:00 | Dental abscess | [facility] | + + + + | 2022-01-03 00:00 | Dental abscess | [facility] | + + + + | 2022-01-03 00:00 | Dental abscess | [facility] | + + + + | 2022-01-03 00:00 | Dental abscess | [facility] | + + + + | 2022-01-03 00:00 | Dental abscess | [facility] | + + + + | 2022-01-14 00:00 | Parasitic infestation | [facility] | + + + + | 2022-01-14 00:00 | Parasitic infestation | [facility] | + + + + | 2022-01-14 00:00 | Parasitic infestation | [facility] | + + + + | 2022-01-14 00:00 | Parasitic infestation | [facility] | + + + + | 2022-01-14 00:00 | Parasitic infestation | [facility] | + + + + | 2022-01-14 00:00 | Parasitic infestation | [facility] | + + + + | 2022-01-23 00:00 | Cellulitis of finger of | [facility] | | | left hand | | + + + + | 2022-01-23 00:00 | Cellulitis of finger of [facility] | | | left hand | | + + + + | 2022-01-23 00:00 | Cellulitis of finger of [facility] | | | left hand | | + + + + | 2022-01-23 00:00 | Cellulitis of finger of [facility] | | | left hand | | + + + + | 2022-01-23 00:00 | Cellulitis of finger of | [facility] | | | left hand | | + + + + | 2022-01-23 00:00 | Cellulitis of finger of | [facility] | | | left hand | | + + + + | 2022-01-25 00:00 | Swelling | [facility] | + + + + | 2022-01-25 00:00 | Swelling | [facility] | + + + + | 2022-01-25 00:00 | Swelling | [facility] | + + + + | 2022-01-25 00:00 | Swelling | [facility] | + + + + | 2022-01-25 00:00 | Swelling | [facility] | + + + + | 2022-01-25 00:00 | Swelling | [facility] | + + + + | 2022-01-28 00:00 | Cellulitis of left ring | [facility] | | | finger | | + + + + | 2022-01-28 00:00 | Cellulitis of left ring | [facility] | | | finger | | + + + + | 2022-01-28 00:00 | Cellulitis of left ring | [facility] | | | finger | | + + + + | 2022-01-28 00:00 | Cellulitis of left ring | [facility] | | | finger | | + + + + | 2022-01-28 00:00 | Cellulitis of left ring | [facility] | | | finger | | + + + + | 2022-01-28 00:00 | Cellulitis of left ring | [facility] | | | finger | | + + + + | 2022-02-10 00:00 | Injury of extremity | [facility] | + + + + | 2022-02-10 00:00 | Injury of extremity | [facility] | + + + + | 2022-02-10 00:00 | Injury of extremity | [facility] | + + + + | 2022-02-10 00:00 | Injury of extremity | [facility] | + + + + | 2022-02-10 00:00 | Injury of extremity | [facility] | + + + + | 2022-03-10 00:00 | Cellulitis of thumb | [facility] | + + + + | 2022-03-10 00:00 | Cellulitis of thumb | [facility] | + + + + | 2022-03-10 00:00 | Cellulitis of thumb | [facility] | + + + + | 2022-03-10 00:00 | Cellulitis of thumb | [facility] | + + + + | 2022-03-10 00:00 | Cellulitis of thumb | [facility] | + + + + | 2022-03-10 00:00 | Formication | [facility] | + + + + | 2022-03-10 00:00 | Formication | [facility] | + + + + | 2022-03-10 00:00 | Formication | [facility] | + + + + | 2022-03-10 00:00 | Formication | [facility] | + + + + | 2022-03-10 00:00 | Formication | [facility] | + + + + | 2022-03-14 00:00 | 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[facility] | + + + + | 2022-03-14 00:00 | 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[facility] | + + + + | 2022-03-14 00:00 | 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[facility] | + + + + | 2022-03-14 00:00 | 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[facility] | + + + + | 2022-03-22 00:00 | Swelling of hand | [facility] | + + + + | 2022-03-22 00:00 | Swelling of hand | [facility] | + + + + | 2022-03-22 00:00 | Swelling of hand | [facility] | + + + + | 2022-03-22 00:00 | Swelling of hand | [facility] | + + + + | 2022-11-23 00:00 | Dental caries | [facility] | + + + + | 2022-11-23 00:00 | Dental caries | [facility] | + + + + | 2022-11-23 00:00 | Dental caries | [facility] | + + + + | 2022-11-23 00:00 | Dental caries | [facility] | + + + + | 2022-11-23 00:00 | Abscess of face | [facility] | + + + + | 2022-11-23 00:00 | Abscess of face | [facility] | + + + + | 2022-11-23 00:00 | Abscess of face | [facility] | + + + + | 2022-11-23 00:00 | Abscess of face | [facility] | + + + + | 2022-12-16 00:00 | Dizziness of unknown | [facility] | | | etiology | | + + + + | 2022-12-16 00:00 | Dizziness of unknown | [facility] | | | etiology | | + + + + | 2022-12-16 00:00 | Dizziness of unknown | [facility] [facility] | | | etiology | | + + + + | 2022-12-16 00:00 | Dizziness of unknown | 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 Results/Labs +--------+--------+ + +---------+--------+ + | test | date | author | facility | value | unit | | | | | | | | | interpreta | | | | | | | | tion | +--------+--------+ + +---------+--------+ + + + | Result panel 1 | + + + + + + +---------+ + + | (unknown) | (no date) | (unknown) | [facility]no | [facility]units | (unknown) | | | [facility] value[facility] | unknown[facility] | | | | + + + + +---------+ + + + + | Result panel 2 | + + + + + + +---------+ + + | (unknown) | (no date) | (unknown) | [facility] (no | (units | (unknown) | | | [facility] | value) | unknown) | [facility] | | | | + + + + +---------+ + + + + | Result panel 3 | + + + + + + +---------+ + + | (unknown) | (no date) | (unknown) | [facility] (no | (units | (unknown) | | | [facility] | value) | unknown) | | [facility] | | | | + + + + +---------+ + + + + | Result panel 4 | + + + + + + +---------+ + + | (unknown) | (no date) | (unknown) | [facility] (no | (units | (unknown) | | | [facility] | value) | unknown) | | [facility] | | | | + + + + +---------+ + + + + | Result panel 5 | + + + + + + +---------+ + + | (unknown) | (no date) | (unknown) | [facility] (no | (units | (unknown) | | | [facility] | value) | unknown) | | [facility] | | | | + + + + +---------+ + + + + | Result panel 6 | + + + + + + +---------+ + + | (unknown) | (no date) | (unknown) | [facility] (no | (units | (unknown) | | | [facility] | value) | unknown) | | [facility] | | | | + + + + +---------+ + + + + | Result panel 7 | + + + + + + +---------+ + + | (unknown) | (no date) | (unknown) | [facility] (no | (units | (unknown) | | [facility] | value) | unknown) | | [facility] | | | | + + + + +---------+ + + + + | Result panel 8 | + + + + + + +---------+ + + | (unknown) | (no date) | (unknown) | [facility] (no | (units | (unknown) | | | [facility] | value) | unknown) | | [facility] | | | | + + + + +---------+ + + + + | Result panel 9 | + + + + + + +---------+ + + | (unknown) | (no date) | (unknown) | [facility] (no | (units | (unknown) | | | [facility] | value) | unknown) | | [facility] | | | | + + + + +---------+ + + + + | Result panel 10 | + + + + + + +---------+ + + | (unknown) | (no date) | (unknown) | [facility] (no | (units | (unknown) | | | | [facility] | value) | unknown) | | [facility] | | | | + + + + +---------+ + + + + | Result panel 11 | + + + + + + +---------+ + + | (unknown) | (no date) | (unknown) | [facility] | (no | (units | (unknown) | | | | [facility] | value) | unknown) | | [facility] | | | | + + + + +---------+ + + + + | Result panel 12 | + + + + + + +---------+ + + | (unknown) | (no date) | (unknown) | [facility] (no | (units | (unknown) | | | | [facility] | value) | unknown) | | [facility] | | | | + + + + +---------+ + + + + | Result panel 13 | + + + + + + +---------+ + + | (unknown) | (no date) | (unknown) | [facility] (no | (units | (unknown) | | | | [facility] | value) | unknown) | | [facility] | | | | + + + + +---------+ + + + + | Result panel 14 | + + + + + + +---------+ + + | (unknown) | (no date) | (unknown) | [facility] | (no | (units | (unknown) | | | | [facility] | value) | unknown) | | | [facility] | | | | + + + + +---------+ + + + + | Result panel 15 | + + + + + + +---------+ + + | (unknown) | (no date) | (unknown) | [facility] (no | (units | (unknown) | | | | [facility] | value) | unknown) | | [facility] | | | | + + + + +---------+ + + + + | Result panel 16 | + + + + + + +---------+ + + | (unknown) | (no date) | (unknown) | [facility] (no | (units | (unknown) | | | | [facility] | value) | unknown) | | | [facility] | | | | + + + + +---------+ + + + + | Result panel 17 | + + + + + + +---------+ + + | (unknown) | (no date) | (unknown) | [facility] (no | (units | (unknown) | | | | [facility] | value) | unknown) | | [facility] | | | | + + + + +---------+ + + + + | Result panel 18 | + + + + + + +---------+ + + | (unknown) | (no date) | (unknown) | [facility] (no | (units | (unknown) | | | | [facility] | value) | unknown) | | [facility] | | | | + + + + +---------+ + + + + | Result panel 19 | + + + + + + +---------+ + + | (unknown) | (no date) | (unknown) | [facility] (no | (units | (unknown) | | | | [facility] | value) | unknown) | | | [facility] | | | | + + + + +---------+ + + + + | Result panel 20 | + + + + + + +---------+ + + | (unknown) | (no date) | (unknown) | [facility] (no | (units | (unknown) | | | | [facility] | value) | unknown) | | [facility] | | | | + + + + +---------+ + + + + | Result panel 21 | + + + + + + +---------+ + + | (unknown) | (no date) | (unknown) | [facility] | (no | (units | (unknown) | | | | [facility] | value) | unknown) | | | [facility] | | | | + + + + +---------+ + + + + | Result panel 22 | + + + + + + +---------+ + + | (unknown) | (no date) | (unknown) | [facility] | (no | (units | (unknown) | | | | [facility] | value) | unknown) | | | [facility] | | | | + + + + +---------+ + + + + | Result panel 23 | + + + + + + +---------+ + + | (unknown) | (no date) | (unknown) | [facility] | (no | (units | (unknown) | | | | [facility] | value) | unknown) | | | [facility] | | | | + + + + +---------+ + + + + | Result panel 24 | + + + + + + +---------+ + + | (unknown) | (no date) | (unknown) | [facility] | (no | (units | (unknown) | | | | [facility] | value) | unknown) | | | [facility] | | | | + + + + +---------+ + + + + | Result panel 25 | + + + + + + +---------+ + + | (unknown) | (no date) | (unknown) | [facility] | (no | (units | (unknown) | | | | [facility] | value) | unknown) | | | [facility] | | | | + + + + +---------+ + + + + | Result panel 26 | + + + + + + +---------+ + + | (unknown) | (no date) | (unknown) | [facility] (no | (units | (unknown) | | | | [facility] | value) | unknown) | | | [facility] | | | | + + + + +---------+ + + + + | Result panel 27 | + + + + + + +---------+ + + | (unknown) | (no date) | (unknown) | [facility] (no | (units | (unknown) | | | | [facility] | value) | unknown) | | | [facility] | | | | + + + + +---------+ + + + + | Result panel 28 | + + + + + + +---------+ + + | (unknown) | (no date) | (unknown) | [facility] (no | (units | (unknown) | | | | [facility] | value) | unknown) | | | [facility] | | | | + + + + +---------+ + + + + | Result panel 29 | + + + + + + +---------+ + + | (unknown) | (no date) | (unknown) | [facility] (no | (units | (unknown) | | | | [facility] | value) | unknown) | | | [facility] | | | | + + + + +---------+ + + + + | Result panel 30 | + + + + + + +---------+ + + | (unknown) | (no date) | (unknown) | [facility] (no | (units | (unknown) | | | | [facility] | value) | unknown) | | | [facility] | | | | + + + + +---------+ + + + + | Result panel 31 | + + + + + + +---------+ + + | (unknown) | (no date) | (unknown) | [facility] | (no | (units | (unknown) | | | | [facility] | value) | unknown) | | | [facility] | | | | + + + + +---------+ + + + + | Result panel 32 | + + + + + + +---------+ + + | (unknown) | (no date) | (unknown) | [facility] | (no | (units | (unknown) | | | | [facility] | value) | unknown) | | | [facility] | | | | + + + + +---------+ + + + + | Result panel 33 | + + + + + + +---------+ + + | (unknown) | (no date) | (unknown) | [facility] | (no | (units | (unknown) | | | | [facility] | value) | unknown) | | | [facility] | | | | + + + + +---------+ + + + + | Result panel 34 | + + + + + + +---------+ + + | (unknown) | (no date) | (unknown) | [facility] | (no | (units | (unknown) | | | | [facility] | value) | unknown) | | [facility] | | | | + + + + +---------+ + + + + | Result panel 35 | + + + + + + +---------+ + + | (unknown) | (no date) | (unknown) | [facility] | (no | (units | (unknown) | | | | [facility] | value) | unknown) | | | [facility] | | | | + + + + +---------+ + + + + | Result panel 36 | + + + + + + +---------+ + + | (unknown) | (no date) | (unknown) | [facility] | (no | (units | (unknown) | | | | [facility] | value) | unknown) | | | [facility] | | | | + + + + +---------+ + + + + | Result panel 37 | + + + + + + +---------+ + + | (unknown) | (no date) | (unknown) | [facility] | (no | (units | (unknown) | | | | [facility] | value) | unknown) | | | | [facility] | | | | + + + + +---------+ + + + + | Result panel 38 | + + + + + + +---------+ + + | (unknown) | (no date) | (unknown) | [facility] | (no | (units | (unknown) | | | | [facility] | value) | unknown) | | | [facility] | | | | + + + + +---------+ + + + + | Result panel 39 | + + + + + + +---------+ + + | (unknown) | (no date) | (unknown) | [facility] | (no | (units | (unknown) | | | | [facility] | value) | unknown) | | | | [facility] | | | | + + + + +---------+ + + + + | Result panel 40 | + + + + + + +---------+ + + | (unknown) | (no date) | (unknown) | [facility] | (no | (units | (unknown) | | | | [facility] | value) | unknown) | | | [facility] | | | | + + + + +---------+ + + + + | Result panel 41 | + + + + + + +---------+ + + | (unknown) | (no date) | (unknown) | [facility] | (no | (units | (unknown) | | | | [facility] | value) | unknown) | | [facility] | [facility] | | | | + + + + +---------+ + + + + | Result panel 42 | + + + + + + +---------+ + + | (unknown) | (no date) | (unknown) | [facility] | (no | (units | (unknown) | | | | [facility] | value) | unknown) | | | | [facility] | | | | + + + + +---------+ + + + + | Result panel 43 | + + + + + + +---------+ + + | (unknown) | (no date) | (unknown) | [facility] | (no | (units | (unknown) | | | | [facility] | value) | unknown) | | | [facility] | | | | + + + + +---------+ + + + + | Result panel 44 | + + + + + + +---------+ + + | (unknown) | (no date) | (unknown) | [facility] | (no | (units | (unknown) | | | | [facility] | value) | unknown) | | | [facility] | | | | + + + + +---------+ + + + + | Result panel 45 | + + + + + + +---------+ + + | (unknown) | (no date) | (unknown) | [facility] | (no | (units | (unknown) | | | | [facility] | value) | unknown) | | | | [facility] | | | | + + + + +---------+ + + + + | Result panel 46 | + + + + + + +---------+ + + | (unknown) | (no date) | (unknown) | [facility] | (no | (units | (unknown) | | | | [facility] | value) | unknown) | | | [facility] | | | | + + + + +---------+ + + + + | Result panel 47 | + + + + + + +---------+ + + | (unknown) | (no date) | (unknown) | [facility] | (no | (units | (unknown) | | | | [facility] | value) | unknown) | | | | [facility] | | | | + + + + +---------+ + + + + | Result panel 48 | + + + + + + +---------+ + + | (unknown) | (no date) | (unknown) | [facility] | (no | (units | (unknown) | | | | [facility] | value) | unknown) | | | [facility] | | | | + + + + +---------+ + + + + | Result panel 49 | + + + + + + +---------+ + + | (unknown) | (no date) | (unknown) | [facility] | (no | (units | (unknown) | | | | [facility] | value) | unknown) | | | | [facility] | | | | + + + + +---------+ + + + + | Result panel 50 | + + + + + + +---------+ + + | (unknown) | (no date) | (unknown) | [facility] | (no | (units | (unknown) | | | | [facility] | value) | unknown) | | | | [facility] | | | | + + + + +---------+ + + + + | Result panel 51 | + + + + + + +---------+ + + | (unknown) | (no date) | (unknown) | [facility] | (no | (units | (unknown) | | | | [facility] | value) | unknown) | | | | [facility] | | | | + + + + +---------+ + + + + | Result panel 52 | + + + + + + +---------+ + + | (unknown) | (no date) | (unknown) | [facility] | (no | (units | (unknown) | | | | [facility] | value) | unknown) | | | | | [facility] | | | | + + + + +---------+ + + + + | Result panel 53 | + + + + + + +---------+ + + | (unknown) | (no date) | (unknown) | [facility] | (no | (units | (unknown) | | | | [facility] | value) | unknown) | | | | [facility] | | | | + + + + +---------+ + + + + | Result panel 54 | + + + + + + +---------+ + + | (unknown) | (no date) | (unknown) | [facility] | (no | (units | (unknown) | | | | [facility] | value) | unknown) | | | | [facility] | | | | + + + + +---------+ + + + + | Result panel 55 | + + + + + + +---------+ + + | (unknown) | (no date) | (unknown) | [facility] | (no | (units | (unknown) | | | | [facility] | value) | unknown) | | | | [facility] | | | | + + + + +---------+ + + + + | Result panel 56 | + + + + + + +---------+ + + | (unknown) | (no date) | (unknown) | [facility] | (no | (units | (unknown) | | | | [facility] | value) | unknown) | | | [facility] | | | | + + + + +---------+ + + + + | Result panel 57 | + + + + + + +---------+ + + | (unknown) | (no date) | (unknown) | [facility] | (no | (units | (unknown) | | | | [facility] | value) | unknown) | | | | [facility] | | | | + + + + +---------+ + + + + | Result panel 58 | + + + + + + +---------+ + + | (unknown) | (no date) | (unknown) | [facility] | (no | (units | (unknown) | | | | [facility] | value) | unknown) | | | | [facility] | | | | + + + + +---------+ + + + + | Result panel 59 | + + + + + + +---------+ + + | (unknown) | (no date) | (unknown) | [facility] | (no | (units | (unknown) | | | | [facility] | value) | unknown) | | | | | [facility] | | | | + + + + +---------+ + + + + | Result panel 60 | + + + + + + +---------+ + + | (unknown) | (no date) | (unknown) | [facility] | (no | (units | (unknown) | | | | [facility] | value) | unknown) | | | | [facility] | | | | + + + + +---------+ + + + + | Result panel 61 | + + + + + + +---------+ + + | (unknown) | (no date) | (unknown) | [facility] | (no | (units | (unknown) | | | | [facility] | value) | unknown) | | | | | [facility] | | | | + + + + +---------+ + + + + | Result panel 62 | + + + + + + +---------+ + + | (unknown) | (no date) | (unknown) | [facility] | (no | (units | (unknown) | | | | [facility] | value) | unknown) | | | | | [facility] | | | | + + + + +---------+ + + + + | Result panel 63 | + + + + + + +---------+ + + | (unknown) | (no date) | (unknown) | [facility] | (no | (units | (unknown) | | | | [facility] | value) | unknown) | | | | [facility] | | | | + + + + +---------+ + + + + | Result panel 64 | + + + + + + +---------+ + + | (unknown) | (no date) | (unknown) | [facility] | (no | (units | (unknown) | | | | [facility] | value) | unknown) | | | [facility] | | | | + + + + +---------+ + + + + | Result panel 65 | + + + + + + +---------+ + + | (unknown) | (no date) | (unknown) | [facility] | (no | (units | (unknown) | | | | [facility] | value) | unknown) | | | | | [facility] | | | | + + + + +---------+ + + + + | Result panel 66 | + + + + + + +---------+ + + | (unknown) | (no date) | (unknown) | [facility] | (no | (units | (unknown) | | | | [facility] | value) | unknown) | | | | | [facility] | | | | + + + + +---------+ + + + + | Result panel 67 | + + + + + + +---------+ + + | (unknown) | (no date) | (unknown) | [facility] | (no | (units | (unknown) | | | | [facility] | value) | unknown) | | | | [facility] | | | | + + + + +---------+ + + + + | Result panel 68 | + + + + + + +---------+ + + | (unknown) | (no date) | (unknown) | [facility] | (no | (units | (unknown) | | | | [facility] | value) | unknown) | | | | | [facility] | | | | + + + + +---------+ + + + + | Result panel 69 | + + + + + + +---------+ + + | (unknown) | (no date) | (unknown) | [facility] | (no | (units | (unknown) | | | | [facility] | value) | unknown) | | | | | [facility] | | | | + + + + +---------+ + + + + | Result panel 70 | + + + + + + +---------+ + + | (unknown) | (no date) | (unknown) | [facility] | (no | (units | (unknown) | | | | [facility] | value) | unknown) | | | | | [facility] | | | | + + + + +---------+ + + + + | Result panel 71 | + + + + + + +---------+ + + | (unknown) | (no date) | (unknown) | [facility] | (no | (units | (unknown) | | | | [facility] | value) | unknown) | | | | | [facility] | | | | + + + + +---------+ + + + + | Result panel 72 | + + + + + + +---------+ + + | (unknown) | (no date) | (unknown) | [facility] | (no | (units | (unknown) | | | | [facility] | value) | unknown) | | | | | [facility] | | | | + + + + +---------+ + + + + | Result panel 73 | + + + + + + +---------+ + + | (unknown) | (no date) | (unknown) | [facility] | (no | (units | (unknown) | | | | [facility] | value) | unknown) | | | | | [facility] | | | | + + + + +---------+ + + + + | Result panel 74 | + + + + + + +---------+ + + | (unknown) | (no date) | (unknown) | [facility] | (no | (units | (unknown) | | | | [facility] | value) | unknown) | | | | | [facility] | | | | + + + + +---------+ + + + + | Result panel 75 | + + + + + + +---------+ + + | (unknown) | (no date) | (unknown) | [facility] | (no | (units | (unknown) | | | | [facility] | value) | unknown) | | | | | [facility] | | | | + + + + +---------+ + + + + | Result panel 76 | + + + + + + +---------+ + + | (unknown) | (no date) | (unknown) | [facility] | (no | (units | (unknown) | | | | [facility] | value) | unknown) | | | | | [facility] | | | | + + + + +---------+ + + + + | Result panel 77 | + + + + + + +---------+ + + | (unknown) | (no date) | (unknown) | [facility] | (no | (units | (unknown) | | | | [facility] | value) | unknown) | | | | | [facility] | | | | + + + + +---------+ + + + + | Result panel 78 | + + + + + + +---------+ + + | (unknown) | (no date) | (unknown) | [facility] | (no | (units | (unknown) | | [facility] | [facility] | value) | unknown) | | | | | [facility] | | | | + + + + +---------+ + + + + | Result panel 79 | + + + + + + +---------+ + + | (unknown) | (no date) | (unknown) | [facility] | (no | (units | (unknown) | | | [facility] | value) | unknown) | | | | [facility] | | | | + + + + +---------+ + + + + | Result panel 80 | + + + + + + +---------+ + + | (unknown) | (no date) | (unknown) | [facility] | (no | (units | (unknown) | | | | [facility] | value) | unknown) | | | | | [facility] | | | | + + + + +---------+ + + + + | Result panel 81 | + + + + + + +---------+ + + | (unknown) | (no date) | (unknown) | [facility] | (no | (units | (unknown) | | | | [facility] | value) | unknown) | | | | | [facility] | | | | + + + + +---------+ + + + + | Result panel 82 | + + + + + + +---------+ + + | (unknown) | (no date) | (unknown) | [facility] | (no | (units | (unknown) | | | | [facility] | value) | unknown) | | | | | [facility] | | | | + + + + +---------+ + + + + | Result panel 83 | + + + + + + +---------+ + + | (unknown) | (no date) | (unknown) | [facility] | (no | (units | (unknown) | | | | | [facility] | value) | unknown) | | | | | [facility] | | | | + + + + +---------+ + + + + | Result panel 84 | + + + + + + +---------+ + + | (unknown) | (no date) | (unknown) | [facility] | (no | (units | (unknown) | | | | | [facility] | value) | unknown) | | | | | [facility] | | | | + + + + +---------+ + + + + | Result panel 85 | + + + + + + +---------+ + + | (unknown) | (no date) | (unknown) | [facility] | (no | (units | (unknown) | | | | [facility] | value) | unknown) | | | | | [facility] | | | | + + + + +---------+ + + + + | Result panel 86 | + + + + + + +---------+ + + | (unknown) | (no date) | (unknown) | [facility] | (no | (units | (unknown) | | | | [facility] | value) | unknown) | | | | | [facility] | | | | + + + + +---------+ + + + + | Result panel 87 | + + + + + + +---------+ + + | (unknown) | (no date) | (unknown) | [facility] | (no | (units | (unknown) | | | | | [facility] | value) | unknown) | | | | | | [facility] | | | | + + + + +---------+ + + + + | Result panel 88 | + + + + + + +---------+ + + | (unknown) | (no date) | (unknown) | [facility] | (no | (units | (unknown) | | | | | [facility] | value) | unknown) | | | | | [facility] | | | | + + + + +---------+ + + + + | Result panel 89 | + + + + + + +---------+ + + | (unknown) | (no date) | (unknown) | [facility] | (no | (units | (unknown) | | | | | [facility] | value) | unknown) | | | | | | [facility] | | | | + + + + +---------+ + + + + | Result panel 90 | + + + + + + +---------+ + + | (unknown) | (no date) | (unknown) | [facility] | (no | (units | (unknown) | | | | | [facility] | value) | unknown) | | | | | | [facility] | | | | + + + + +---------+ + + + + | Result panel 91 | + + + + + + +---------+ + + | (unknown) | (no date) | (unknown) | [facility] | (no | (units | (unknown) | | | | | [facility] | value) | unknown) | | | | | [facility] | | | | + + + + +---------+ + + + + | Result panel 92 | + + + + + + +---------+ + + | (unknown) | (no date) | (unknown) | [facility] | (no | (units | (unknown) | | | | [facility] | value) | unknown) | | | | | [facility] | | | | + + + + +---------+ + + + + | Result panel 93 | + + + + + + +---------+ + + | (unknown) | (no date) | (unknown) | [facility] | (no | (units | (unknown) | | [facility] | [facility] | value) | unknown) | | | | | [facility] | | | | + + + + +---------+ + + + + | Result panel 94 | + + + + + + +---------+ + + | (unknown) | (no date) | (unknown) | [facility] | (no | (units | (unknown) | | | | | [facility] | value) | unknown) | | | | | [facility] | | | | + + + + +---------+ + + + + | Result panel 95 | + + + + + + +---------+ + + | (unknown) | (no date) | (unknown) | [facility] | (no | (units | (unknown) | | | | [facility] | value) | unknown) | | | | | [facility] | | | | + + + + +---------+ + + + + | Result panel 96 | + + + + + + +---------+ + + | (unknown) | (no date) | (unknown) | [facility] | (no | (units | (unknown) | | | | | [facility] | value) | unknown) | | | | | | [facility] | | | | + + + + +---------+ + + + + | Result panel 97 | + + + + + + +---------+ + + | (unknown) | (no date) | (unknown) | [facility] | (no | (units | (unknown) | | | | | [facility] | value) | unknown) | | | | | [facility] | | | | + + + + +---------+ + + + + | Result panel 98 | + + + + + + +---------+ + + | (unknown) | (no date) | (unknown) | [facility] | (no | (units | (unknown) | | | | | [facility] | value) | unknown) | | | | | | [facility] | | | | + + + + +---------+ + + + + | Result panel 99 | + + + + + + +---------+ + + | (unknown) | (no date) | (unknown) | [facility] | (no | (units | (unknown) | | | | | [facility] | value) | unknown) | | | | | | [facility] | | | | + + + + +---------+ + + + + | Result panel 100 | + + + + + + +---------+ + + | (unknown) | (no date) | (unknown) | [facility] | (no | (units | (unknown) | | | | | [facility] | value) | unknown) | | | | | | [facility] | | | | + + + + +---------+ + + + + | Result panel 101 | + + + + + + +---------+ + + | (unknown) | (no date) | (unknown) | [facility] | (no | (units | (unknown) | | | | | [facility] | value) | unknown) | | | | | | [facility] | | | | + + + + +---------+ + + + + | Result panel 102 | + + + + + + +---------+ + + | (unknown) | (no date) | (unknown) | [facility] | (no | (units | (unknown) | | | | | [facility] | value) | unknown) | | | | | | [facility] | | | | + + + + +---------+ + + + + | Result panel 103 | + + + + + + +---------+ + + | (unknown) | (no date) | (unknown) | [facility] | (no | (units | (unknown) | | | | | [facility] | value) | unknown) | | | | | | [facility] | | | | + + + + +---------+ + + + + | Result panel 104 | + + + + + + +---------+ + + | (unknown) | (no date) | (unknown) | [facility] | (no | (units | (unknown) | | | | | [facility] | value) | unknown) | | | | | | [facility] | | | | + + + + +---------+ + + + + | Result panel 105 | + + + + + + +---------+ + + | (unknown) | (no date) | (unknown) | [facility] | (no | (units | (unknown) | | | | | [facility] | value) | unknown) | | | | | | [facility] | | | | + + + + +---------+ + + + + | Result panel 106 | + + + + + + +---------+ + + | (unknown) | (no date) | (unknown) | [facility] | (no | (units | (unknown) | | | | | [facility] | value) | unknown) | | | | | | [facility] | | | | + + + + +---------+ + + + + | Result panel 107 | + + + + + + +---------+ + + | (unknown) | (no date) | (unknown) | [facility] | (no | (units | (unknown) | | | | | [facility] | value) | unknown) | | | | | | [facility] | | | | + + + + +---------+ + + + + | Result panel 108 | + + + + + + +---------+ + + | (unknown) | (no date) | (unknown) | [facility] | (no | (units | (unknown) | | | | | [facility] | value) | unknown) | | | | | | [facility] | | | | + + + + +---------+ + + + + | Result panel 109 | + + + + + + +---------+ + + | (unknown) | (no date) | (unknown) | [facility] | (no | (units | (unknown) | | | | | [facility] | value) | unknown) | | | | | | [facility] | | | | + + + + +---------+ + + + + | Result panel 110 | + + + + + + +---------+ + + | (unknown) | (no date) | (unknown) | [facility] | (no | (units | (unknown) | | | | | [facility] | value) | unknown) | | | | | | [facility] | | | | + + + + +---------+ + + + + | Result panel 111 | + + + + + + +---------+ + + | (unknown) | (no date) | (unknown) | [facility] | (no | (units | (unknown) | | | | | [facility] | value) | unknown) | | | | | | [facility] | | | | + + + + +---------+ + + + + | Result panel 112 | + + + + + + +---------+ + + | (unknown) | (no date) | (unknown) | [facility] | (no | (units | (unknown) | | | | | [facility] | value) | unknown) | | | | | | [facility] | | | | + + + + +---------+ + + + + | Result panel 113 | + + + + + + +---------+ + + | (unknown) | (no date) | (unknown) | [facility] | (no | (units | (unknown) | | | | | [facility] | value) | unknown) | | | | | | [facility] | | | | + + + + +---------+ + + + + | Result panel 114 | + + + + + + +---------+ + + | (unknown) | (no date) | (unknown) | [facility] | (no | (units | (unknown) | | | | | [facility] | value) | unknown) | | | | | | [facility] | | | | + + + + +---------+ + + + + | Result panel 115 | + + + + + + +---------+ + + | (unknown) | (no date) | (unknown) | [facility] | (no | (units | (unknown) | | | | | [facility] | value) | unknown) | | | | | | [facility] | | | | + + + + +---------+ + + + + | Result panel 116 | + + + + + + +---------+ + + | (unknown) | (no date) | (unknown) | [facility] | (no | (units | (unknown) | | | | | [facility] | value) | unknown) | | | | | | [facility] | | | | + + + + +---------+ + + Social History No information. Vital [...] 116 | lb | + + + +---------+"
--- OUTSIDE RECORDS SUMMARY | ~2023-01-27 | XMS | Continuity of Care Document ---
Demographics + + + | Address | [address] | | | [place] [address] | + + + | Preferred Language | Unknown | + + + | Marital Status | Never | + + + | Confucianism Affiliation | Unknown | + + + | Race | White | + + + | Ethnic Group | Not or | + + + Author + + + | Author | [facility] | + + + | Organization | [facility] | + + + | Address | [address] | | | [place] [address] | + + + | Phone | | + + + Care Team Providers + + + + | Care [employer] Name | Role | Phone | [...] | (no date) | Mild | [facility] | (unknown) | | | | Hospital | | + + + + + Encounters No information. Functional Status No information. Immunizations No information. Medications + + + + | date | description | facility | + + + + | 2017-09-28 00:00 | | [facility] | | | Guaifenesin/Dextromethorpha | | | | n | | + + + + | 2017-09-28 00:00 | | [facility] | | | Guaifenesin/Dextromethorpha | | | | n | | + + + + | 2017-09-28 00:00 | | [facility] | | | Guaifenesin/Dextromethorpha | | | | n | | + + + + | 2017-09-28 00:00 | | [facility] | | | Guaifenesin/Dextromethorpha | | | | n | | + + + + | 2017-09-28 00:00 | | [facility] | | | Guaifenesin/Dextromethorpha | | | | n | | + + + + | 2017-09-28 00:00 | | [facility] | | | Guaifenesin/Dextromethorpha | | | | n | | + + + + | 2021-04-03 00:00 | ONDANSETRON HCL | [facility] | + + + + | 2021-04-03 00:00 | ONDANSETRON HCL | [facility] | + + + + | 2021-04-03 00:00 | ONDANSETRON HCL | [facility] | + + + + | 2021-04-03 00:00 | ONDANSETRON HCL | [facility] | + + + + | 2021-04-03 00:00 | ONDANSETRON HCL | [facility] | + + + + | 2021-04-03 00:00 | ONDANSETRON HCL | [facility] | + + + + | 2021-02-08 00:00 | TRIAMCINOLONE ACETONIDE | [facility] | + + + + | 2021-02-08 00:00 | TRIAMCINOLONE ACETONIDE | [facility] | + + + + | 2021-02-08 00:00 | TRIAMCINOLONE ACETONIDE | [facility] | + + + + | 2021-02-08 00:00 | TRIAMCINOLONE ACETONIDE | [facility] | + + + + | 2021-02-08 00:00 | TRIAMCINOLONE ACETONIDE | [facility] | + + + + | 2021-02-08 00:00 | TRIAMCINOLONE ACETONIDE | [facility] | + + + + | 2021-08-27 00:00 | OLANZAPINE | [facility] | + + + + | 2021-08-27 00:00 | OLANZAPINE | [facility] | + + + + | 2021-08-27 00:00 | OLANZAPINE | [facility] | + + + + | 2021-08-27 00:00 | OLANZAPINE | [facility] | + + + + | 2021-08-27 00:00 | OLANZAPINE | [facility] | + + + + | 2021-08-27 00:00 | OLANZAPINE | [facility] | + + + + | 2021-09-01 00:00 | OLANZAPINE | [facility] | + + + + | 2021-09-01 00:00 | OLANZAPINE | [facility] | + + + + | 2021-09-01 00:00 | OLANZAPINE | [facility] | + + + + | 2021-09-01 00:00 | OLANZAPINE | [facility] | + + + + | 2021-09-01 00:00 | OLANZAPINE | [facility] | + + + + | 2021-09-01 00:00 | OLANZAPINE | [facility] | + + + + | 2022-10-13 00:00 | DOXYCYCLINE HYCLATE | [facility] | + + + + | 2022-01-31 00:00 | AMLODIPINE BESYLATE | [facility] | + + + + | 2022-01-31 00:00 | AMLODIPINE BESYLATE | [facility] | + + + + | 2022-01-31 00:00 | AMLODIPINE BESYLATE | [facility] | + + + + | 2022-01-23 00:00 | CEPHALEXIN | [facility] | + + + + | 2022-01-23 00:00 | CEPHALEXIN | [facility] | + + + + | 2022-01-23 00:00 | CEPHALEXIN | [facility] | + + + + | 2022-01-23 00:00 | CEPHALEXIN | [facility] | + + + + | 2022-01-23 00:00 | CEPHALEXIN | [facility] | + + + + | 2022-01-23 00:00 | CEPHALEXIN | [facility] | + + + + | 2022-03-10 00:00 | CEPHALEXIN | [facility] | + + + + | 2022-03-10 00:00 | CEPHALEXIN | [facility] | + + + + | 2017-09-07 00:00 | IBUPROFEN | [facility] | + + + + | 2017-09-07 00:00 | IBUPROFEN | [facility] | + + + + | 2017-09-07 00:00 | IBUPROFEN | [facility] | + + + + | 2017-09-07 00:00 | IBUPROFEN | [facility] | + + + + | 2017-09-07 00:00 | IBUPROFEN | [facility] | + + + + | 2017-09-07 00:00 | IBUPROFEN | [facility] | + + + + | 2023-01-01 00:00 | PERMETHRIN | [facility] | + + + + | 2023-01-01 00:00 | PERMETHRIN | [facility] | + + + + | 2019-01-27 00:00 | CEPHALEXIN | [facility] | + + + + | 2019-01-27 00:00 | CEPHALEXIN | [facility] | + + + + | 2019-01-27 00:00 | CEPHALEXIN | [facility] | + + + + | 2019-01-27 00:00 | CEPHALEXIN | [facility] | + + + + | 2019-01-27 00:00 | CEPHALEXIN | [facility] | + + + + | 2019-01-27 00:00 | CEPHALEXIN | [facility] | + + + + | 2017-08-07 00:00 | AZITHROMYCIN | [facility] | + + + + | 2017-08-07 00:00 | AZITHROMYCIN | [facility] | + + + + | 2017-08-07 00:00 | AZITHROMYCIN | [facility] | + + + + | 2017-08-07 00:00 | AZITHROMYCIN | [facility] | + + + + | 2017-08-07 00:00 | AZITHROMYCIN | [facility] | + + + + | 2017-08-07 00:00 | AZITHROMYCIN | [facility] | + + + + | 2022-03-14 00:00 | BETAMETHASONE DIPROPIONATE | [facility] | | | | | + + + + | 2016-11-17 00:00 | CEPHALEXIN | [facility] | + + + + | 2016-11-17 00:00 | CEPHALEXIN | [facility] | + + + + | 2016-11-17 00:00 | CEPHALEXIN | [facility] | + + + + | 2016-11-17 00:00 | CEPHALEXIN | [facility] | + + + + | 2016-11-17 00:00 | CEPHALEXIN | [facility] | + + + + | 2016-11-17 00:00 | CEPHALEXIN | [facility] | + + + + | 2016-11-20 00:00 | CEPHALEXIN | [facility] | + + + + | 2016-11-20 00:00 | CEPHALEXIN | [facility] | + + + + | 2016-11-20 00:00 | CEPHALEXIN | [facility] | + + + + | 2016-11-20 00:00 | CEPHALEXIN | [facility] | + + + + | 2016-11-20 00:00 | CEPHALEXIN | [facility] | + + + + | 2016-11-20 00:00 | CEPHALEXIN | [facility] | + + + + | 2022-02-03 00:00 | CEPHALEXIN | [facility] | + + + + | 2022-02-05 00:00 | CEPHALEXIN | [facility] | + + + + | 2022-02-06 00:00 | CEPHALEXIN | [facility] | + + + + | 2022-02-06 00:00 | CEPHALEXIN | [facility] | + + + + | 2022-02-07 00:00 | CEPHALEXIN | [facility] | + + + + | 2022-02-10 00:00 | CEPHALEXIN | [facility] | + + + + | 2022-02-16 00:00 | CEPHALEXIN | [facility] | + + + + | 2022-03-14 00:00 | CEPHALEXIN | [facility] | + + + + | 2022-03-19 00:00 | CEPHALEXIN | [facility] | + + + + | 2022-03-22 00:00 | CEPHALEXIN | [facility] | + + + + | 2022-10-13 00:00 | CEPHALEXIN | [facility] | + + + + | 2022-10-31 00:00 | CEPHALEXIN | [facility] | + + + + | 2022-11-21 00:00 | CEPHALEXIN | [facility] | + + + + | 2022-11-22 00:00 | CEPHALEXIN | [facility] | + + + + | 2022-11-23 00:00 | CEPHALEXIN | [facility] | + + + + | 2022-12-16 00:00 | CEPHALEXIN | [facility] | + + + + | 2022-12-21 00:00 | CEPHALEXIN | [facility] | + + + + | 2023-01-01 00:00 | CEPHALEXIN | [facility] | + + + + | 2023-01-10 00:00 | CEPHALEXIN | [facility] | + + + + | 2020-07-15 00:00 | Erythromycin Base | [facility] | + + + + | 2020-07-15 00:00 | Erythromycin Base | [facility] | + + + + | 2020-07-15 00:00 | Erythromycin Base | [facility] | + + + + | 2020-07-15 00:00 | Erythromycin Base | [facility] | + + + + | 2020-07-15 00:00 | Erythromycin Base | [facility] | + + + + | 2020-07-15 00:00 | Erythromycin Base | [facility] | + + + + | 2022-10-13 00:00 | ONDANSETRON | [facility] | + + + + | 2022-02-03 00:00 | Oseltamivir Phosphate | [facility] | + + + + | 2022-02-05 00:00 | Oseltamivir Phosphate | [facility] | + + + + | 2022-02-06 00:00 | Oseltamivir Phosphate | [facility] | + + + + | 2022-02-06 00:00 | Oseltamivir Phosphate | [facility] | + + + + | 2022-02-07 00:00 | Oseltamivir Phosphate | [facility] | + + + + | 2022-02-10 00:00 | Oseltamivir Phosphate | [facility] | + + + + | 2022-02-16 00:00 | Oseltamivir Phosphate | [facility] | + + + + | 2022-03-14 00:00 | Oseltamivir Phosphate | [facility] | + + + + | 2022-03-19 00:00 | Oseltamivir Phosphate | [facility] | + + + + | 2022-03-22 00:00 | Oseltamivir Phosphate | [facility] | + + + + | 2022-10-13 00:00 | Oseltamivir Phosphate | [facility] | + + + + | 2022-10-31 00:00 | Oseltamivir Phosphate | [facility] | + + + + | 2022-11-21 00:00 | Oseltamivir Phosphate | [facility] | + + + + | 2022-11-22 00:00 | Oseltamivir Phosphate | [facility] | + + + + | 2022-11-23 00:00 | Oseltamivir Phosphate | [facility] | + + + + | 2022-12-16 00:00 | Oseltamivir Phosphate | [facility] | + + + + | 2022-12-21 00:00 | Oseltamivir Phosphate | [facility] | + + + + | 2023-01-01 00:00 | Oseltamivir Phosphate | [facility] | + + + + | 2023-01-10 00:00 | Oseltamivir Phosphate | [facility] | + + + + | 2022-02-03 00:00 | PIMOZIDE | [facility] | + + + + | 2022-02-05 00:00 | PIMOZIDE | [facility] | + + + + | 2022-02-06 00:00 | PIMOZIDE | [facility] | + + + + | 2022-02-06 00:00 | PIMOZIDE | [facility] | + + + + | 2022-02-07 00:00 | PIMOZIDE | [facility] | + + + + | 2022-02-10 00:00 | PIMOZIDE | [facility] | + + + + | 2022-02-16 00:00 | PIMOZIDE | [facility] | + + + + | 2022-03-14 00:00 | PIMOZIDE | [facility] | + + + + | 2022-03-19 00:00 | PIMOZIDE | [facility] | + + + + | 2022-03-22 00:00 | PIMOZIDE | [facility] | + + + + | 2022-10-13 00:00 | PIMOZIDE | [facility] | + + + + | 2022-10-31 00:00 | PIMOZIDE | [facility] | + + + + | 2022-11-21 00:00 | PIMOZIDE | [facility] | + + + + | 2022-11-22 00:00 | PIMOZIDE | [facility] | + + + + | 2022-11-23 00:00 | PIMOZIDE | [facility] | + + + + | 2022-12-16 00:00 | PIMOZIDE | [facility] | + + + + | 2022-12-21 00:00 | PIMOZIDE | [facility] | + + + + | 2023-01-01 00:00 | PIMOZIDE | [facility] | + + + + | 2023-01-10 00:00 | PIMOZIDE | [facility] | + + + + | 2017-06-18 00:00 | predniSONE | [facility] | + + + + | 2017-06-18 00:00 | predniSONE | [facility] | + + + + | 2017-06-18 00:00 | predniSONE | [facility] | + + + + | 2017-06-18 00:00 | predniSONE | [facility] | + + + + | 2017-06-18 00:00 | predniSONE | [facility] | + + + + | 2017-06-18 00:00 | predniSONE | [facility] | + + + + | 2020-01-23 00:00 | predniSONE | [facility] | + + + + | 2020-01-23 00:00 | predniSONE | [facility] | + + + + | 2020-01-23 00:00 | predniSONE | [facility] | + + + + | 2020-01-23 00:00 | predniSONE | [facility] | + + + + | 2020-01-23 00:00 | predniSONE | [facility] | + + + + | 2020-01-23 00:00 | predniSONE | [facility] | + + + + | 2022-03-22 00:00 | predniSONE | [facility] | + + + + | 2016-05-14 00:00 | HALOPERIDOL | [facility] | + + + + | 2016-05-14 00:00 | HALOPERIDOL | [facility] | + + + + | 2016-05-14 00:00 | HALOPERIDOL | [facility] | + + + + | 2016-05-14 00:00 | HALOPERIDOL | [facility] | + + + + | 2016-05-14 00:00 | HALOPERIDOL | [facility] | + + + + | 2016-05-14 00:00 | HALOPERIDOL | [facility] | + + + + | 2018-02-21 00:00 | HALOPERIDOL | [facility] | + + + + | 2018-02-21 00:00 | HALOPERIDOL | [facility] | + + + + | 2018-02-21 00:00 | HALOPERIDOL | [facility] | + + + + | 2018-02-21 00:00 | HALOPERIDOL | [facility] | + + + + | 2018-02-21 00:00 | HALOPERIDOL | [facility] | + + + + | 2018-02-21 00:00 | HALOPERIDOL | [facility] | + + + + | 2022-02-03 00:00 | HALOPERIDOL | [facility] | + + + + | 2022-02-05 00:00 | HALOPERIDOL | [facility] | + + + + | 2022-02-06 00:00 | HALOPERIDOL | [facility] | + + + + | 2022-02-06 00:00 | HALOPERIDOL | [facility] | + + + + | 2022-02-07 00:00 | HALOPERIDOL | [facility] | + + + + | 2022-02-10 00:00 | HALOPERIDOL | [facility] | + + + + | 2022-02-16 00:00 | HALOPERIDOL | [facility] | + + + + | 2022-03-14 00:00 | HALOPERIDOL | [facility] | + + + + | 2022-03-19 00:00 | HALOPERIDOL | [facility] | + + + + | 2022-03-22 00:00 | HALOPERIDOL | [facility] | + + + + | 2022-10-13 00:00 | HALOPERIDOL | [facility] | + + + + | 2022-10-31 00:00 | HALOPERIDOL | [facility] | + + + + | 2022-11-21 00:00 | HALOPERIDOL | [facility] | + + + + | 2022-11-22 00:00 | HALOPERIDOL | [facility] | + + + + | 2022-11-23 00:00 | HALOPERIDOL | [facility] | + + + + | 2022-12-16 00:00 | HALOPERIDOL | [facility] | + + + + | 2022-12-21 00:00 | HALOPERIDOL | [facility] | + + + + | 2023-01-01 00:00 | HALOPERIDOL | [facility] | + + + + | 2023-01-10 00:00 | HALOPERIDOL | [facility] | + + + + | 2021-07-02 00:00 | LISINOPRIL | [facility] | + + + + | 2021-07-02 00:00 | LISINOPRIL | [facility] | + + + + | 2021-07-02 00:00 | LISINOPRIL | [facility] | + + + + | 2021-07-02 00:00 | LISINOPRIL | [facility] | + + + + | 2021-07-02 00:00 | LISINOPRIL | [facility] | + + + + | 2021-07-02 00:00 | LISINOPRIL | [facility] | + + + + | 2023-01-01 00:00 | LISINOPRIL | [facility] | + + + + | 2023-01-01 00:00 | LISINOPRIL | [facility] | + + + + | 2023-01-10 00:00 | LISINOPRIL | [facility] | + + + + | 2023-01-01 00:00 | HYDROCHLOROTHIAZIDE | [facility] | + + + + | 2023-01-01 00:00 | HYDROCHLOROTHIAZIDE | [facility] | + + + + | 2023-01-10 00:00 | HYDROCHLOROTHIAZIDE | [facility] | + + + + | 2022-11-22 00:00 | AMOXICILLIN/POTASSIUM CLAV | [facility] | | | | | + + + + | 2022-11-22 00:00 | AMOXICILLIN/POTASSIUM CLAV | [facility] | | | | | + + + + | 2017-09-28 00:00 | ALBUTEROL SULFATE | [facility] | + + + + | 2017-09-28 00:00 | ALBUTEROL SULFATE | [facility] | + + + + | 2017-09-28 00:00 | ALBUTEROL SULFATE | [facility] | + + + + | 2017-09-28 00:00 | ALBUTEROL SULFATE | [facility] | + + + + | 2017-09-28 00:00 | ALBUTEROL SULFATE | [facility] | + + + + | 2017-09-28 00:00 | ALBUTEROL SULFATE | [facility] | + + + + | 2017-09-07 00:00 | CLINDAMYCIN HCL | [facility] | + + + + | 2017-09-07 00:00 | CLINDAMYCIN HCL | [facility] | + + + + | 2017-09-07 00:00 | CLINDAMYCIN HCL | [facility] | + + + + | 2017-09-07 00:00 | CLINDAMYCIN HCL | [facility] | + + + + | 2017-09-07 00:00 | CLINDAMYCIN HCL | [facility] | + + + + | 2017-09-07 00:00 | CLINDAMYCIN HCL | [facility] | + + + + | 2020-06-16 00:00 | CLINDAMYCIN HCL | [facility] | + + + + | 2020-06-16 00:00 | CLINDAMYCIN HCL | [facility] | + + + + | 2020-06-16 00:00 | CLINDAMYCIN HCL | [facility] | + + + + | 2020-06-16 00:00 | CLINDAMYCIN HCL | [facility] | + + + + | 2020-06-16 00:00 | CLINDAMYCIN HCL | [facility] | + + + + | 2020-06-16 00:00 | CLINDAMYCIN HCL | [facility] | + + + + | 2020-07-12 00:00 | CLINDAMYCIN HCL | [facility] | + + + + | 2020-07-12 00:00 | CLINDAMYCIN HCL | [facility] | + + + + | 2020-07-12 00:00 | CLINDAMYCIN HCL | [facility] | + + + + | 2020-07-12 00:00 | CLINDAMYCIN HCL | [facility] | + + + + | 2020-07-12 00:00 | CLINDAMYCIN HCL | [facility] | + + + + | 2020-07-12 00:00 | CLINDAMYCIN HCL | [facility] | + + + + | 2022-11-23 00:00 | CLINDAMYCIN HCL | [facility] | + + + + | 2022-11-23 00:00 | CLINDAMYCIN HCL | [facility] | + + + + | 2017-08-07 00:00 | METHYLPREDNISOLONE | [facility] | + + + + | 2017-08-07 00:00 | METHYLPREDNISOLONE | [facility] | + + + + | 2017-08-07 00:00 | METHYLPREDNISOLONE [facility] | + + + + | 2017-08-07 00:00 | METHYLPREDNISOLONE | [facility] | + + + + | 2017-08-07 00:00 | METHYLPREDNISOLONE | [facility] | + + + + | 2017-08-07 00:00 | METHYLPREDNISOLONE | [facility] | + + + + | 2021-08-27 00:00 | Chlorhexidine Gluconate | [facility] | + + + + | 2021-08-27 00:00 | Chlorhexidine Gluconate | [facility] | + + + + | 2021-08-27 00:00 | Chlorhexidine Gluconate | [facility] | + + + + | 2021-08-27 00:00 | Chlorhexidine Gluconate | [facility] | + + + + | 2021-08-27 00:00 | Chlorhexidine Gluconate | [facility] | + + + + | 2021-08-27 00:00 | Chlorhexidine Gluconate | [facility] | + + + + | 2014-02-25 00:00 | | [facility] | | | SULFAMETHOXAZOLE/TRIMETHOPR | | | | IM DS | | + + + + | 2014-02-25 00:00 | | [facility] | | | SULFAMETHOXAZOLE/TRIMETHOPR | | | | IM DS | | + + + + | 2014-02-25 00:00 | | [facility] | | | SULFAMETHOXAZOLE/TRIMETHOPR | | | | IM DS | | + + + + | 2014-02-25 00:00 | | [facility] | | | SULFAMETHOXAZOLE/TRIMETHOPR | | | | IM DS | | + + + + | 2014-02-25 00:00 | | [facility] | | | SULFAMETHOXAZOLE/TRIMETHOPR | | | | IM DS | | + + + + | 2014-02-25 00:00 | | [facility] | | | SULFAMETHOXAZOLE/TRIMETHOPR | | | | IM DS | | + + + + | 2017-10-08 00:00 | | [facility] | | | SULFAMETHOXAZOLE/TRIMETHOPR | | | | IM DS | | + + + + | 2017-10-08 00:00 | | [facility] | | | SULFAMETHOXAZOLE/TRIMETHOPR | | | | IM DS | | + + + + | 2017-10-08 00:00 | | [facility] | | | SULFAMETHOXAZOLE/TRIMETHOPR | | | | IM DS | | + + + + | 2017-10-08 00:00 | | [facility] | | | SULFAMETHOXAZOLE/TRIMETHOPR | | | | IM DS | | + + + + | 2017-10-08 00:00 | | [facility] | | | SULFAMETHOXAZOLE/TRIMETHOPR | | | | IM DS | | + + + + | 2017-10-08 00:00 | | [facility] | | | SULFAMETHOXAZOLE/TRIMETHOPR | | | | IM DS | | + + + + | 2022-01-31 00:00 | | [facility] | | | SULFAMETHOXAZOLE/TRIMETHOPR | | | | IM DS | | + + + + | 2017-06-18 00:00 | ALBUTEROL SULFATE | [facility] | + + + + | 2017-06-18 00:00 | ALBUTEROL SULFATE | [facility] | + + + + | 2017-06-18 00:00 | ALBUTEROL SULFATE | [facility] | + + + + | 2017-06-18 00:00 | ALBUTEROL SULFATE | [facility] | + + + + | 2017-06-18 00:00 | ALBUTEROL SULFATE | [facility] | + + + + | 2017-06-18 00:00 | ALBUTEROL SULFATE | [facility] | + + + + | 2017-08-07 00:00 | ALBUTEROL SULFATE | [facility] | + + + + | 2017-08-07 00:00 | ALBUTEROL SULFATE | [facility] | + + + + | 2017-08-07 00:00 | ALBUTEROL SULFATE | [facility] | + + + + | 2017-08-07 00:00 | ALBUTEROL SULFATE | [facility] | + + + + | 2017-08-07 00:00 | ALBUTEROL SULFATE | [facility] | + + + + | 2017-08-07 00:00 | ALBUTEROL SULFATE | [facility] | + + + + | 2022-02-03 00:00 | ONDANSETRON | [facility] | + + + + | 2022-02-05 00:00 | ONDANSETRON | [facility] | + + + + | 2022-02-06 00:00 | ONDANSETRON | [facility] | + + + + | 2022-02-06 00:00 | ONDANSETRON | [facility] | + + + + | 2022-02-07 00:00 | ONDANSETRON | [facility] | + + + + | 2022-02-10 00:00 | ONDANSETRON | [facility] | + + + + | 2022-02-16 00:00 | ONDANSETRON | [facility] | + + + + | 2022-03-14 00:00 | ONDANSETRON | [facility] | + + + + | 2022-03-19 00:00 | ONDANSETRON | [facility] | + + + + | 2022-03-22 00:00 | ONDANSETRON | [facility] | + + + + | 2022-10-13 00:00 | ONDANSETRON | [facility] | + + + + | 2022-10-31 00:00 | ONDANSETRON | [facility] | + + + + | 2022-11-21 00:00 | ONDANSETRON | [facility] | + + + + | 2022-11-22 00:00 | ONDANSETRON | [facility] | + + + + | 2022-11-23 00:00 | ONDANSETRON | [facility] | + + + + | 2022-12-16 00:00 | ONDANSETRON | [facility] | + + + + | 2022-12-21 00:00 | ONDANSETRON | [facility] | + + + + | 2023-01-01 00:00 | ONDANSETRON | [facility] | + + + + | 2023-01-10 00:00 | ONDANSETRON | [facility] | + + + + | 2020-12-15 00:00 | MECLIZINE HCL | [facility] | + + + + | 2020-12-15 00:00 | MECLIZINE HCL | [facility] | + + + + | 2020-12-15 00:00 | MECLIZINE HCL | [facility] | + + + + | 2020-12-15 00:00 | MECLIZINE HCL | [facility] | + + + + | 2020-12-15 00:00 | MECLIZINE HCL | [facility] | + + + + | 2020-12-15 00:00 | MECLIZINE HCL | [facility] | + + + + Problems + + + + | date | description | facility | + + + + | 2016-05-14 00:00 | Encounter for medication | [facility] | | | refill | | + + + + | 2016-05-14 00:00 | Encounter for medication | [facility] | | | refill | | + + + + | 2016-05-14 00:00 | Encounter for medication | [facility] | | | refill | | + + + + | 2016-05-14 00:00 | Encounter for medication | [facility] | | | refill | | + + + + | 2016-05-14 00:00 | Encounter for medication | [facility] | | | refill | | + + + + | 2016-05-14 00:00 | Encounter for medication | [facility] | | | refill | | + + + + | 2016-08-19 00:00 | Encounter for medical | [facility] | | | screening examination | | + + + + | 2016-08-19 00:00 | Encounter for medical | [facility] | | | screening examination | | + + + + | 2016-08-19 00:00 | Encounter for medical | [facility] | | | screening examination | | + + + + | 2016-08-19 00:00 | Encounter for medical | [facility] | | | screening examination | | + + + + | 2016-08-19 00:00 | Encounter for medical | [facility] | | | screening examination | | + + + + | 2016-08-19 00:00 | Encounter for medical | [facility] | | | screening examination | | + + + + | 2016-10-10 00:00 | Constipation | [facility] | + + + + | 2016-10-10 00:00 | Constipation | [facility] | + + + + | 2016-10-10 00:00 | Constipation | [facility] | + + + + | 2016-10-10 00:00 | Constipation | [facility] | + + + + | 2016-10-10 00:00 | Constipation | [facility] | + + + + | 2016-10-10 00:00 | Constipation | [facility] | + + + + | 2016-10-10 00:00 | Nonspecific abdominal pain | [facility] | | | | | + + + + | 2016-10-10 00:00 | Nonspecific abdominal pain | [facility] | | | | | + + + + | 2016-10-10 00:00 | Nonspecific abdominal pain | [facility] | | | | | + + + + | 2016-10-10 00:00 | Nonspecific abdominal pain | [facility] | | | | | + + + + | 2016-10-10 00:00 | Nonspecific abdominal pain | [facility] | | | | | + + + + | 2016-10-10 00:00 | Nonspecific abdominal pain | [facility] | | | | | + + + + | 2016-10-31 00:00 | Methamphetamine abuse | [facility] | + + + + | 2016-10-31 00:00 | Methamphetamine abuse | [facility] | + + + + | 2016-10-31 00:00 | Methamphetamine abuse | [facility] | + + + + | 2016-10-31 00:00 | Methamphetamine abuse | [facility] | + + + + | 2016-10-31 00:00 | Methamphetamine abuse | [facility] | + + + + | 2016-10-31 00:00 | Methamphetamine abuse | [facility] | + + + + | 2016-10-31 00:00 | Chronic abdominal pain | [facility] | + + + + | 2016-10-31 00:00 | Chronic abdominal pain | [facility] | + + + + | 2016-10-31 00:00 | Chronic abdominal pain | [facility] | + + + + | 2016-10-31 00:00 | Chronic abdominal pain | [facility] | + + + + | 2016-10-31 00:00 | Chronic abdominal pain | [facility] | + + + + | 2016-10-31 00:00 | Chronic abdominal pain | [facility] | + + + + | 2016-10-31 00:00 | Weight loss | [facility] | + + + + | 2016-10-31 00:00 | Weight loss | [facility] | + + + + | 2016-10-31 00:00 | Weight loss | [facility] | + + + + | 2016-10-31 00:00 | Weight loss | [facility] | + + + + | 2016-10-31 00:00 | Weight loss | [facility] | + + + + | 2016-10-31 00:00 | Weight loss | [facility] | + + + + | 2016-11-17 00:00 | Cellulitis | [facility] | + + + + | 2016-11-17 00:00 | Cellulitis | [facility] | + + + + | 2016-11-17 00:00 | Cellulitis | [facility] | + + + + | 2016-11-17 00:00 | Cellulitis | [facility] | + + + + | 2016-11-17 00:00 | Cellulitis | [facility] | + + + + | 2016-11-17 00:00 | Cellulitis | [facility] | + + + + | 2017-01-04 00:00 | Mononeuropathy of right | [facility]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 | | + + + + | 2017-01-04 00:00 | Mononeuropathy of right | [facility]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 | | + + + + | 2017-01-04 00:00 | Mononeuropathy of right | [facility]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 | | + + + + | 2017-01-04 00:00 | Mononeuropathy of right | [facility]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 | | + + + + | 2017-01-04 00:00 | Mononeuropathy of right | [facility]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 | | + + + + | 2017-01-04 00:00 | Mononeuropathy of right | [facility]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 | | + + + + | 2017-06-09 00:00 | Patient left without being | [facility] | | | seen | | + + + + | 2017-06-09 00:00 | Patient left without being | [facility] | | | seen | | + + + + | 2017-06-09 00:00 | Patient left without being | [facility] | | | seen | | + + + + | 2017-06-09 00:00 | Patient left without being | [facility] | | | seen | | + + + + | 2017-06-09 00:00 | Patient left without being | [facility] | | | seen | | + + + + | 2017-06-09 00:00 | Patient left without being | [facility] | | | seen | | + + + + | 2017-06-18 00:00 | Obstructive chronic | [facility] | | | bronchitis with | | | | exacerbation | | + + + + | 2017-06-18 00:00 | Obstructive chronic | [facility] | | | bronchitis with | | | | exacerbation | | + + + + | 2017-06-18 00:00 | Obstructive chronic | [facility] | | | bronchitis with | | | | exacerbation | | + + + + | 2017-06-18 00:00 | Obstructive chronic | [facility] | | | bronchitis with | | | | exacerbation | | + + + + | 2017-06-18 00:00 | Obstructive chronic | [facility] | | | bronchitis with | | | | exacerbation | | + + + + | 2017-06-18 00:00 | Obstructive chronic | [facility] | | | bronchitis with | | | | exacerbation | | + + + + | 2017-06-18 00:00 | Dyspnea on exertion | [facility] | + + + + | 2017-06-18 00:00 | Dyspnea on exertion | [facility] | + + + + | 2017-06-18 00:00 | Dyspnea on exertion | [facility] | + + + + | 2017-06-18 00:00 | Dyspnea on exertion | [facility] | + + + + | 2017-06-18 00:00 | Dyspnea on exertion | [facility] | + + + + | 2017-06-18 00:00 | Dyspnea on exertion | [facility] | + + + + | 2017-08-07 00:00 | Bronchitis | [facility] | + + + + | 2017-08-07 00:00 | Bronchitis | [facility] | + + + + | 2017-08-07 00:00 | Bronchitis | [facility] | + + + + | 2017-08-07 00:00 | Bronchitis | [facility] | + + + + | 2017-08-07 00:00 | Bronchitis | [facility] | + + + + | 2017-08-07 00:00 | Bronchitis | [facility] | + + + + | 2017-09-07 00:00 | [facility] | | | right hand | | + + + + | 2017-09-07 00:00 | Paronychia of finger of [facility] | | | right hand | | + + + + | 2017-09-07 00:00 | Paronychia of finger of [facility] | | | right hand | | + + + + | 2017-09-07 00:00 | Paronychia of finger of [facility] | | | right hand | | + + + + | 2017-09-07 00:00 | Paronychia of finger of [facility] | | | right hand | | + + + + | 2017-09-07 00:00 | Paronychia of finger of | [facility] | | | right hand | | + + + + | 2017-09-28 00:00 | Upper respiratory tract | [facility] | | | infection | | + + + + | 2017-09-28 00:00 | Upper respiratory tract | [facility] | | | infection | | + + + + | 2017-09-28 00:00 | Upper respiratory tract | [facility] | | | infection | | + + + + | 2017-09-28 00:00 | Upper respiratory tract | [facility] | | | infection | | + + + + | 2017-09-28 00:00 | Upper respiratory tract | [facility] | | | infection | | + + + + | 2017-09-28 00:00 | Upper respiratory tract | [facility] | | | infection | | + + + + | 2019-01-27 00:00 | Cellulitis of lower | [facility] | | | extremity | | + + + + | 2019-01-27 00:00 | Cellulitis of lower | [facility] | | | extremity | | + + + + | 2019-01-27 00:00 | Cellulitis of lower | [facility] | | | extremity | | + + + + | 2019-01-27 00:00 | Cellulitis of lower | [facility] | | | extremity | | + + + + | 2019-01-27 00:00 | Cellulitis of lower | [facility] | | | extremity | | + + + + | 2019-01-27 00:00 | Cellulitis of lower | [facility] | | | extremity | | + + + + | 2020-01-23 00:00 | Gout | [facility] | + + + + | 2020-01-23 00:00 | Gout | [facility] | + + + + | 2020-01-23 00:00 | Gout | [facility] | + + + + | 2020-01-23 00:00 | Gout | [facility] | + + + + | 2020-01-23 00:00 | Gout | [facility] | + + + + | 2020-01-23 00:00 | Gout | [facility] | + + + + | 2020-05-09 00:00 | Rectal fissure | [facility] | + + + + | 2020-05-09 00:00 | Rectal fissure | [facility] | + + + + | 2020-05-09 00:00 | Rectal fissure | [facility] | + + + + 2020-05-09 00:00 | Rectal fissure | [facility] | + + + + | 2020-05-09 00:00 | Rectal fissure | [facility] | + + + + | 2020-05-09 00:00 | Rectal fissure | [facility] | + + + + | 2020-07-15 00:00 | Cannabis abuse | [facility] | + + + + | 2020-07-15 00:00 | Cannabis abuse | [facility] | + + + + | 2020-07-15 00:00 | Cannabis abuse | [facility] | + + + + | 2020-07-15 00:00 | Cannabis abuse | [facility] | + + + + | 2020-07-15 00:00 | Cannabis abuse | [facility] | + + + + | 2020-07-15 00:00 | Cannabis abuse | [facility] | + + + + 2020-07-15 00:00 | Acute kidney injury | [facility] | + + + + | 2020-07-15 00:00 | Acute kidney injury | [facility] | + + + + | 2020-07-15 00:00 | Acute kidney injury | [facility] | + + + + | 2020-07-15 00:00 | Acute kidney injury | [facility] | + + + + | 2020-07-15 00:00 | Acute kidney injury | [facility] | + + + + | 2020-07-15 00:00 | Acute kidney injury | [facility] | + + + + | 2020-07-15 00:00 | Elevated transaminase | [facility] | | | measurement | | + + + + | 2020-07-15 00:00 | Elevated transaminase | [facility] | | | measurement | | + + + + | 2020-07-15 00:00 | Elevated transaminase | [facility] | | | measurement | | + + + + | 2020-07-15 00:00 | Elevated transaminase | [facility] | | | measurement | | + + + + | 2020-07-15 00:00 | Elevated transaminase | [facility] | | | measurement | | + + + + | 2020-07-15 00:00 | Elevated transaminase | [facility] | | | measurement | | + + + + | 2020-07-15 00:00 | Abrasion of left cornea | [facility] | + + + + | 2020-07-15 00:00 | Abrasion of left cornea | [facility] | + + + + | 2020-07-15 00:00 | Abrasion of left cornea | [facility] | + + + + 2020-07-15 00:00 | Abrasion of left cornea | [facility] | + + + + 2020-07-15 00:00 | Abrasion of left cornea | [facility] | + + + + | 2020-07-15 00:00 | Abrasion of left cornea | [facility] | + + + + | 2020-09-17 00:00 | 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[facility] | + + + + | 2020-09-17 00:00 | 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[facility] | + + + + | 2020-09-17 00:00 | 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[facility] | + + + + | 2020-09-17 00:00 | 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[facility] | + + + + | 2020-09-17 00:00 | 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[facility] | + + + + | 2020-09-17 00:00 | 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[facility] | + + + + | 2020-11-13 00:00 | Drug use | [facility] | + + + + | 2020-11-13 00:00 | Drug use | [facility] | + + + + | 2020-11-13 00:00 | Drug use | [facility] | + + + + | 2020-11-13 00:00 | Drug use | [facility] | + + + + | 2020-11-13 00:00 | Drug use | [facility] | + + + + | 2020-11-13 00:00 | Drug use | [facility] | + + + + | 2020-12-15 00:00 | Vertigo | [facility] | + + + + | 2020-12-15 00:00 | Vertigo | [facility] | + + + + | 2020-12-15 00:00 | Vertigo | [facility] | + + + + | 2020-12-15 00:00 | Vertigo | [facility] | + + + + | 2020-12-15 00:00 | Vertigo | [facility] | + + + + | 2020-12-15 00:00 | Vertigo | [facility] | + + + + | 2021-02-08 00:00 | Eczema of both hands | [facility] | + + + + | 2021-02-08 00:00 | Eczema of both hands | [facility] | + + + + | 2021-02-08 00:00 | Eczema of both hands | [facility] | + + + + | 2021-02-08 00:00 | Eczema of both hands | [facility] | + + + + | 2021-02-08 00:00 | Eczema of both hands | [facility] | + + + + | 2021-02-08 00:00 | Eczema of both hands | [facility] | + + + + | 2021-04-03 00:00 | Dehydration | [facility] | + + + + | 2021-04-03 00:00 | Dehydration | [facility] | + + + + | 2021-04-03 00:00 | Dehydration | [facility] | + + + + | 2021-04-03 00:00 | Dehydration | [facility] | + + + + | 2021-04-03 00:00 | Dehydration | [facility] | + + + + | 2021-04-03 00:00 | Dehydration | [facility] | + + + + | 2021-04-03 00:00 | Enteritis | [facility] | + + + + | 2021-04-03 00:00 | Enteritis | [facility] | + + + + | 2021-04-03 00:00 | Enteritis | [facility] | + + + + | 2021-04-03 00:00 | Enteritis | [facility] | + + + + | 2021-04-03 00:00 | Enteritis | [facility] | + + + + | 2021-04-03 00:00 | Enteritis | [facility] | + + + + | 2021 00:00 | Parasite not detected | [facility] | + + + + | 2021 00:00 | Parasite not detected | [facility] | + + + + | 2021 00:00 | Parasite not detected | [facility] | + + + + | 2021 00:00 | Parasite not detected | [facility] | + + + + | 2021 00:00 | Parasite not detected | [facility] | + + + + | 2021 00:00 | Parasite not detected | [facility] | + + + + | 2021 00:00 | Pain of hand | [facility] | + + + + | 2021 00:00 | Pain of hand | [facility] | + + + + | 2021 00:00 | Pain of hand | [facility] | + + + + | 2021 00:00 | Pain of hand | [facility] | + + + + | 2021 00:00 | Pain of hand | [facility] | + + + + | 2021 00:00 | Pain of hand | [facility] | + + + + | 2021-05-18 00:00 | Viral infection | [facility] | + + + + | 2021-05-18 00:00 | Viral infection | [facility] | + + + + | 2021-05-18 00:00 | Viral infection | [facility] | + + + + | 2021-05-18 00:00 | Viral infection | [facility] | + + + + | 2021-05-18 00:00 | Viral infection | [facility] | + + + + | 2021-05-18 00:00 | Viral infection | [facility] | + + + + | 2021-07-02 00:00 | Acute bronchitis | [facility] | + + + + | 2021-07-02 00:00 | Acute bronchitis | [facility] | + + + + | 2021-07-02 00:00 | Acute bronchitis | [facility] | + + + + | 2021-07-02 00:00 | Acute bronchitis | [facility] | + + + + | 2021-07-02 00:00 | Acute bronchitis | [facility] | + + + + | 2021-07-02 00:00 | Acute bronchitis | [facility] | + + + + | 2021-07-13 00:00 | Dizziness | [facility] | + + + + | 2021-07-13 00:00 | Dizziness | [facility] | + + + + | 2021-07-13 00:00 | Dizziness | [facility] | + + + + | 2021-07-13 00:00 | Dizziness | [facility] | + + + + | 2021-07-13 00:00 | Dizziness | [facility] | + + + + | 2021-07-13 00:00 | Dizziness | [facility] | + + + + | 2021-08-27 00:00 | Schizoaffective disorder | [facility] | + + + + | 2021-08-27 00:00 | Schizoaffective disorder | [facility] | + + + + | 2021-08-27 00:00 | Schizoaffective disorder | [facility] | + + + + | 2021-08-27 00:00 | Schizoaffective disorder | [facility] | + + + + | 2021-08-27 00:00 | Schizoaffective disorder | [facility] | + + + + | 2021-08-27 00:00 | Schizoaffective disorder | [facility] | + + + + | 2021-08-27 00:00 | Stomatitis | [facility] | + + + + | 2021-08-27 00:00 | Stomatitis | [facility] | + + + + | 2021-08-27 00:00 | Stomatitis | [facility] | + + + + | 2021-08-27 00:00 | Stomatitis | [facility] | + + + + | 2021-08-27 00:00 | Stomatitis | [facility] | + + + + | 2021-08-27 00:00 | Stomatitis | [facility] | + + + + | 2021-09-22 00:00 | Vomiting | [facility] | + + + + | 2021-09-22 00:00 | Vomiting | [facility] | + + + + | 2021-09-22 00:00 | Vomiting | [facility] | + + + + | 2021-09-22 00:00 | Vomiting | [facility] | + + + + | 2021-09-22 00:00 | Vomiting | [facility] | + + + + | 2021-09-22 00:00 | Vomiting | [facility] | + + + + | 2021-11-12 00:00 | Pneumonia | [facility] | + + + + | 2021-11-12 00:00 | Pneumonia | [facility] | + + + + | 2021-11-12 00:00 | Pneumonia | [facility] | + + + + | 2021-11-12 00:00 | Pneumonia | [facility] | + + + + | 2021-11-12 00:00 | Pneumonia | [facility] | + + + + | 2021-11-12 00:00 | Pneumonia | [facility] | + + + + | 2022-01-03 00:00 | Dental abscess | [facility] | + + + + | 2022-01-03 00:00 | Dental abscess | [facility] | + + + + | 2022-01-03 00:00 | Dental abscess | [facility] | + + + + | 2022-01-03 00:00 | Dental abscess | [facility] | + + + + | 2022-01-03 00:00 | Dental abscess | [facility] | + + + + | 2022-01-03 00:00 | Dental abscess | [facility] | + + + + | 2022-01-14 00:00 | Parasitic infestation | [facility] | + + + + | 2022-01-14 00:00 | Parasitic infestation | [facility] | + + + + | 2022-01-14 00:00 | Parasitic infestation | [facility] | + + + + | 2022-01-14 00:00 | Parasitic infestation | [facility] | + + + + | 2022-01-14 00:00 | Parasitic infestation | [facility] | + + + + | 2022-01-14 00:00 | Parasitic infestation | [facility] | + + + + | 2022-01-23 00:00 | Cellulitis of finger of | [facility] | | | left hand | | + + + + | 2022-01-23 00:00 | Cellulitis of finger of [facility] | | | left hand | | + + + + | 2022-01-23 00:00 | Cellulitis of finger of [facility] | | | left hand | | + + + + | 2022-01-23 00:00 | Cellulitis of finger of [facility] | | | left hand | | + + + + | 2022-01-23 00:00 | Cellulitis of finger of | [facility] | | | left hand | | + + + + | 2022-01-23 00:00 | Cellulitis of finger of | [facility] | | | left hand | | + + + + | 2022-01-25 00:00 | Swelling | [facility] | + + + + | 2022-01-25 00:00 | Swelling | [facility] | + + + + | 2022-01-25 00:00 | Swelling | [facility] | + + + + | 2022-01-25 00:00 | Swelling | [facility] | + + + + | 2022-01-25 00:00 | Swelling | [facility] | + + + + | 2022-01-25 00:00 | Swelling | [facility] | + + + + | 2022-01-28 00:00 | Cellulitis of left ring | [facility] | | | finger | | + + + + | 2022-01-28 00:00 | Cellulitis of left ring | [facility] | | | finger | | + + + + | 2022-01-28 00:00 | Cellulitis of left ring | [facility] | | | finger | | + + + + | 2022-01-28 00:00 | Cellulitis of left ring | [facility] | | | finger | | + + + + | 2022-01-28 00:00 | Cellulitis of left ring | [facility] | | | finger | | + + + + | 2022-01-28 00:00 | Cellulitis of left ring | [facility] | | | finger | | + + + + | 2022-02-10 00:00 | Injury of extremity | [facility] | + + + + | 2022-02-10 00:00 | Injury of extremity | [facility] | + + + + | 2022-02-10 00:00 | Injury of extremity | [facility] | + + + + | 2022-02-10 00:00 | Injury of extremity | [facility] | + + + + | 2022-02-10 00:00 | Injury of extremity | [facility] | + + + + | 2022-03-10 00:00 | Cellulitis of thumb | [facility] | + + + + | 2022-03-10 00:00 | Cellulitis of thumb | [facility] | + + + + | 2022-03-10 00:00 | Cellulitis of thumb | [facility] | + + + + | 2022-03-10 00:00 | Cellulitis of thumb | [facility] | + + + + | 2022-03-10 00:00 | Cellulitis of thumb | [facility] | + + + + | 2022-03-10 00:00 | Formication | [facility] | + + + + | 2022-03-10 00:00 | Formication | [facility] | + + + + | 2022-03-10 00:00 | Formication | [facility] | + + + + | 2022-03-10 00:00 | Formication | [facility] | + + + + | 2022-03-10 00:00 | Formication | [facility] | + + + + | 2022-03-14 00:00 | 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[facility] | + + + + | 2022-03-14 00:00 | 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[facility] | + + + + | 2022-03-14 00:00 | 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[facility] | + + + + | 2022-03-14 00:00 | 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[facility] | + + + + | 2022-03-22 00:00 | Swelling of hand | [facility] | + + + + | 2022-03-22 00:00 | Swelling of hand | [facility] | + + + + | 2022-03-22 00:00 | Swelling of hand | [facility] | + + + + | 2022-03-22 00:00 | Swelling of hand | [facility] | + + + + | 2022-11-23 00:00 | Dental caries | [facility] | + + + + | 2022-11-23 00:00 | Dental caries | [facility] | + + + + | 2022-11-23 00:00 | Dental caries | [facility] | + + + + | 2022-11-23 00:00 | Dental caries | [facility] | + + + + | 2022-11-23 00:00 | Abscess of face | [facility] | + + + + | 2022-11-23 00:00 | Abscess of face | [facility] | + + + + | 2022-11-23 00:00 | Abscess of face | [facility] | + + + + | 2022-11-23 00:00 | Abscess of face | [facility] | + + + + | 2022-12-16 00:00 | Dizziness of unknown | [facility] | | | etiology | | + + + + | 2022-12-16 00:00 | Dizziness of unknown | [facility] | | | etiology | | + + + + | 2022-12-16 00:00 | Dizziness of unknown | [facility] | | | etiology | | + + + + | 2022-12-16 00:00 | Dizziness of unknown | [facility] | | | etiology | [...] + + | 2022-12-16 20:45 | 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) | [facility] | | | DRUG [...] + + | 2022-12-21 12:34 | 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) | [facility] | | | DRUG THERAPY | | + + + + | 2023-01-01 00:00 | Infestation by Sarcoptes | [facility] | | | scabiei | | + + + + | 2023-01-01 00:00 | Infestation by Sarcoptes | [facility] | | | scabiei | | + + + + | 2023-01-01 00:00 | Hypothyroidism | [facility] | + + + + | 2023-01-01 00:00 | Hypothyroidism | [facility] | + + + + | 2023-01-01 00:00 | Hypertension | [facility] | + + + + | 2023-01-01 00:00 | Hypertension | [facility] | + + + + | [...] + + | 2023-01-01 18:29 | OTHER [facility] (CURRENT) | [facility] | | | DRUG [...] + + | 2023-01-10 07:21 | 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) | [facility] | | | DRUG [...]
--- OUTSIDE RECORDS SUMMARY | 2023-01-27 09:57 | XMS ---
PreManage Notification: VALENTINO SORTO Security Glass Sagger Events 5 event(s) in the past 18 months Most recent security events: Elopement at [facility] 11/21/2022 13:52 - Patient eloped before treatment completed. - Patient with suicidal and/or homicidal ideations eloped. - Patient eloped with IV in place. Details: Patient LWBS. Elopement at [facility] 10/31/2022 17:09 - Patient eloped before treatment completed. - Patient with suicidal and/or homicidal ideations eloped. - Patient eloped with IV in place. Details: Patient LWBS Elopement at [facility] 02/10/2022 06:38 - Patient eloped before treatment completed. - Patient with suicidal and/or homicidal ideations eloped. - Patient eloped with IV in place. Details: PATIENT LWBS CRITERIA MET - 6 ED Visits in 6 Months - Group Notification - [facility] - 2 Visits in 30 Days - [facility] - Has Care Guidelines CARE PROVIDERS -Ulysses- Dentist: Dye And Chemical Coordinator Counts Include [facility] PHONE: [phone] JAMILA NORIEGA [facility] 01/24/2020-[facility] PHONE: [phone] [place] has no Care Guidelines for this patient. Care History Medical/Surgical 03/11/2022 [facility] ALERT KATHLEEN HAS BEEN TRYING TO CONTACT PATIENT. IF PATIENT IS SEEN IN THE ED PLEASE CONTACT KATHLEEN CRISIS LINE [phone]. KATHLEEN HAS A PHONE TO PROVIDE TO THE PATIENT. PLEASE LET PATIENT KNOW. KATHLEEN IS TRYING TO HELP WITH HOUSING RESOURCES AND WOULD LIKE TO FURTHER ASSIST. 09/02/2021 [facility] - MULTIPLE ATTEMPTS TO CONTACT PATIENT - - PATIENT HAS DECLINED COMMUNITY COUNSELING SOLUTIONS HELP- MULTIPLE ATTEMPTS HAVE BEEN MADE AND PATIENT DECLINES EVERY TIME. - PATIENT HAS DECLINED HELP FROM KATHLEEN - PATIENT IS ABLE TO GO TO THE DAY CENTER THAT KATHLEEN PROVIDES. 11/27/2020 [facility] - KATHLEEN HELPED PATIENT WITH TREATMENT PLACEMENT AT [facility] - PATIENT WAS AT TREATMENT FACILITY AND LEFT AMA BY FOOT - PATIENT IS BACK IN THE AREA AND KATHLEEN HAS NO WAY OF CONTACTING PATIENT - IF PATIENT IS SEEN IN THE ED AGAIN-PLEASE ASK IF PATIENT WOULD BE OKAY WITH KATHLEEN BEING CONTACTED. E.D. VISIT COUNT (12 MO.) 5 [place] Steve 21 LASHAY PandyaTroy TOTAL 26 NOTE: Visits indicate total known visits. ED/UCC VISIT TRACKING (12 MO.) 01/27/2023 09:48 LASHAY Wilmer [place]roy Arora [place] TYPE: Emergency COMPLAINT: - MEDICAL CLEARANCE 01/14/2023 [facility] DIAGNOSES: - Changes in skin texture - hands burning - Wound Check 01/13/2023 18:46 [facility] Radha DuranTroyMesfinTroy Johny Mcclain ABRAHAM TYPE: Emergency DIAGNOSES: - Cellulitis of right upper limb - Rash and other nonspecific skin eruption - Scabies - hand pain - Headache (Adult - New Onset Or New Symptoms) - Nausea - Scabies (Possible) 01/10/2023 07:[address] [facility] [address] 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 [facility] Arora [place] TYPE: Emergency COMPLAINT: - BUG BITES DIAGNOSES: - Essential (primary) hypertension - Nicotine dependence, unspecified, uncomplicated - Other prison (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 - Other stimulant abuse, in remission - Scabies - Type 2 diabetes mellitus without complications 12/21/2022 12:34 LASHAY Shook [place] TYPE: Emergency COMPLAINT: - DIZZINESS DIAGNOSES: - Essential (primary) hypertension - Nicotine dependence, unspecified, uncomplicated - Other longwall foreman (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 - Other stimulant abuse, uncomplicated - Type 2 diabetes mellitus without complications - Weakness 12/16/2022 20:45 LASHAY Shook [place] TYPE: Emergency COMPLAINT: - DIZZINESS DIAGNOSES: - Dizziness and giddiness - Essential (primary) hypertension - Nicotine dependence, unspecified, uncomplicated - Other longwall foreman (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 - Type 2 diabetes mellitus without complications 12/09/2022 18:55 [facility] Steve ROSARIO TYPE: Emergency DIAGNOSES: - Cellulitis of right upper limb - Arm Swelling - Rt arm pain/swelling 11/23/2022 10:03 LASHAY Shook [place] TYPE: Emergency COMPLAINT: - THINKS HE HAS INFECTION DIAGNOSES: - Dental caries, unspecified - Diseases of lips - Essential (primary) hypertension - Nicotine dependence, unspecified, uncomplicated - Other longwall foreman (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 - Type 2 diabetes [...] COMPLAINT: - HAND PAIN 10/13/2022 11:40 LASHAY Parish[place] TYPE: Emergency COMPLAINT: - MOUTH, HANDS, FEET PAIN, HEADACHE DIAGNOSES: - Essential (primary) hypertension - Localized edema - Nicotine dependence, unspecified, uncomplicated - Type 2 diabetes mellitus without complications 03/22/2022 09:10 [facility] [place] [facility] COMPLAINT: - EXTREMITY PAIN/INJURY DIAGNOSES: - Essential (primary) hypertension - Nicotine dependence, unspecified, uncomplicated - Other prison (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 - Other specified soft tissue disorders 03/14/2022 16:58 [facility] [place] TYPE: Emergency COMPLAINT: - SKIN PROBLEM DIAGNOSES: - Delusional disorders - Disorder of the skin and subcutaneous tissue, unspecified - Essential (primary) hypertension - Nicotine dependence, unspecified, uncomplicated - Other prison (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 - Other stimulant abuse, uncomplicated - Rash and other nonspecific skin eruption 03/10/2022 13:59 [facility] [place] TYPE: Emergency COMPLAINT: - MOUTH, THROAT, HANDS PAIN DIAGNOSES: - Changes in skin texture - Essential (primary) hypertension - Nicotine dependence, unspecified, uncomplicated - Other longwall foreman (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 - Other stimulant abuse, uncomplicated - Paresthesia of skin 03/07/2022 01:12 LASHAY Pyle TYPE: Emergency COMPLAINT: - ARM PAIN DIAGNOSES: - Essential (primary) hypertension - Nicotine dependence, unspecified, uncomplicated - Other prison (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 - Other stimulant abuse, uncomplicated - Pain in right hand 03/03/2022 13:25 [facility] DIAGNOSES: - Pruritus, unspecified - med refill - Medication Refill 03/01/2022 17:46 [facility] DIAGNOSES: - Dermatitis, unspecified - Other skin changes - foot issue - Hallucinations - Hand Swelling 02/15/2022 01:41 LASHAY Shook [place] TYPE: Emergency COMPLAINT: - WEAKNESS DIAGNOSES: - Anemia, unspecified - Essential (primary) hypertension - Nicotine dependence, unspecified, uncomplicated - Other prison (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 - Other stimulant abuse, uncomplicated Plus 6 More Visits INPATIENT VISIT TRACKING (12 MO.) 12/09/2022 18:55 [facility] Steve ROSARIO TYPE: Medical Surgical DIAGNOSES: - Cellulitis of right upper limb - Cellulitis of right upper limb 01/28/2022 21:43 LASHAY Pyle TYPE: Medical Surgical COMPLAINT: - CELLULITIS DIAGNOSES: - Cellulitis of left finger - Cellulitis of left finger - Cellulitis of left upper limb - Contact with and (suspected) exposure to COVID-19 - Contact with and (suspected) exposure to COVID-19 - Dysarthria and anarthria - Dysarthria and anarthria - Essential (primary) hypertension - Essential (primary) hypertension - arts administrator (current) use of antibiotics - care home (current) use of antibiotics - Nicotine dependence, cigarettes, uncomplicated - Nicotine dependence, cigarettes, uncomplicated - Other specified postprocedural states - Other specified postprocedural states - Other stimulant abuse, uncomplicated - Other stimulant abuse, uncomplicated - Schizoaffective disorder, unspecified - Schizoaffective disorder, unspecified - Synovitis and tenosynovitis, unspecified - Synovitis and tenosynovitis, unspecified [email or web address]
[2023-01-27 10:25] VITALS: BP 156/99
== END 2023-01-27 10:28 | disposition home or self-care (01) ==
LOC: ED 09:47
DX: L30.9 Dermatitis, unspecified (principal); I10 Essential (primary) hypertension; E11.9 Type 2 diabetes mellitus without complications; E07.9 Disorder of thyroid, unspecified; F17.200 Nicotine dependence, unspecified, uncomplicated; Z79.899 Other long term (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
CPT/HCPCS: 99283

== ENCOUNTER 2023-01-29 00:23 | Emergency (ER) | payer MEDICARE, OTHER ==
[~2023-01-29] VITALS: Ht 162.6 cm; Wt 52.9 kg
--- OUTSIDE RECORDS SUMMARY | ~2023-01-29 | XMS | Continuity of Care Document ---
Demographics + + + | Address | [address] | | | [place] [address] | + + + | Preferred Language | Unknown | + + + | Marital Status | Never | + + + | Druze Affiliation | Unknown | + + + | Race | White | + + + | Ethnic Group | Not or | + + + Author + + + | Author | [facility] | + + + | Organization | [facility] | + + + | Address | [address] | | | [place] [address] | + + + | Phone | | + + + Care Team Providers + + + + | Care Deburrer Name | Role | Phone | + [...] | (no date) | Mild | [facility] (unknown) | | | | [facility] | | + + + + + | (no date) | No Known Drug | [facility] | (unknown) | | | Allergies | | | + + + + + Encounters No information. Functional Status No information. Immunizations No information. Medications + + + + | date | description | facility | + + + + | 2017-09-28 00:00 | | [facility] | | | Guaifenesin/Dextromethorpha | | | | n | | + + + + | 2017-09-28 00:00 | | [facility] | | | Guaifenesin/Dextromethorpha | | | | n | | + + + + | 2017-09-28 00:00 | | [facility] | | | Guaifenesin/Dextromethorpha | | | | n | | + + + + | 2017-09-28 00:00 | | [facility] | | | Guaifenesin/Dextromethorpha | | | | n | | + + + + | 2017-09-28 00:00 | | [facility] | | | Guaifenesin/Dextromethorpha | | | | n | | + + + + | 2017-09-28 00:00 | | [facility] | | | Guaifenesin/Dextromethorpha | | | | n | | + + + + | 2017-09-28 00:00 | | [facility] | | | Guaifenesin/Dextromethorpha | | | | n | | + + + + | 2021-04-03 00:00 | ONDANSETRON HCL | [facility] | + + + + | 2021-04-03 00:00 | ONDANSETRON HCL | [facility] | + + + + | 2021-04-03 00:00 | ONDANSETRON HCL | [facility] | + + + + | 2021-04-03 00:00 | ONDANSETRON HCL | [facility] | + + + + | 2021-04-03 00:00 | ONDANSETRON HCL | [facility] | + + + + | 2021-04-03 00:00 | ONDANSETRON HCL | [facility] | + + + + | 2021-04-03 00:00 | ONDANSETRON HCL | [facility] | + + + + | 2021-02-08 00:00 | TRIAMCINOLONE ACETONIDE | [facility] | + + + + | 2021-02-08 00:00 | TRIAMCINOLONE ACETONIDE | [facility] | + + + + | 2021-02-08 00:00 | TRIAMCINOLONE ACETONIDE | [facility] | + + + + | 2021-02-08 00:00 | TRIAMCINOLONE ACETONIDE | [facility] | + + + + | 2021-02-08 00:00 | TRIAMCINOLONE ACETONIDE | [facility] | + + + + | 2021-02-08 00:00 | TRIAMCINOLONE ACETONIDE | [facility] | + + + + | 2021-02-08 00:00 | TRIAMCINOLONE ACETONIDE | [facility] | + + + + | 2021-08-27 00:00 | OLANZAPINE | [facility] | + + + + | 2021-08-27 00:00 | OLANZAPINE | [facility] | + + + + | 2021-08-27 00:00 | OLANZAPINE | [facility] | + + + + | 2021-08-27 00:00 | OLANZAPINE | [facility] | + + + + | 2021-08-27 00:00 | OLANZAPINE | [facility] | + + + + | 2021-08-27 00:00 | OLANZAPINE | [facility] | + + + + | 2021-08-27 00:00 | OLANZAPINE | [facility] | + + + + | 2021-09-01 00:00 | OLANZAPINE | [facility] | + + + + | 2021-09-01 00:00 | OLANZAPINE | [facility] | + + + + | 2021-09-01 00:00 | OLANZAPINE | [facility] | + + + + | 2021-09-01 00:00 | OLANZAPINE | [facility] | + + + + | 2021-09-01 00:00 | OLANZAPINE | [facility] | + + + + | 2021-09-01 00:00 | OLANZAPINE | [facility] | + + + + | 2021-09-01 00:00 | OLANZAPINE | [facility] | + + + + | 2022-10-13 00:00 | DOXYCYCLINE HYCLATE | [facility] | + + + + | 2022-01-31 00:00 | AMLODIPINE BESYLATE | [facility] | + + + + | 2022-01-31 00:00 | AMLODIPINE BESYLATE | [facility] | + + + + | 2022-01-31 00:00 | AMLODIPINE BESYLATE | [facility] | + + + + | 2022-01-23 00:00 | CEPHALEXIN | [facility] | + + + + | 2022-01-23 00:00 | CEPHALEXIN | [facility] | + + + + | 2022-01-23 00:00 | CEPHALEXIN | [facility] | + + + + | 2022-01-23 00:00 | CEPHALEXIN | [facility] | + + + + | 2022-01-23 00:00 | CEPHALEXIN | [facility] | + + + + | 2022-01-23 00:00 | CEPHALEXIN | [facility] | + + + + | 2022-01-23 00:00 | CEPHALEXIN | [facility] | + + + + | 2022-03-10 00:00 | CEPHALEXIN | [facility] | + + + + | 2022-03-10 00:00 | CEPHALEXIN | [facility] | + + + + | 2017-09-07 00:00 | IBUPROFEN | [facility] | + + + + | 2017-09-07 00:00 | IBUPROFEN | [facility] | + + + + | 2017-09-07 00:00 | IBUPROFEN | [facility] | + + + + | 2017-09-07 00:00 | IBUPROFEN | [facility] | + + + + | 2017-09-07 00:00 | IBUPROFEN | [facility] | + + + + | 2017-09-07 00:00 | IBUPROFEN | [facility] | + + + + | 2017-09-07 00:00 | IBUPROFEN | [facility] | + + + + | 2023-01-01 00:00 | PERMETHRIN | [facility] | + + + + | 2023-01-01 00:00 | PERMETHRIN | [facility] | + + + + | 2023-01-01 00:00 | PERMETHRIN | [facility] | + + + + | 2019-01-27 00:00 | CEPHALEXIN | [facility] | + + + + | 2019-01-27 00:00 | CEPHALEXIN | [facility] | + + + + | 2019-01-27 00:00 | CEPHALEXIN | [facility] | + + + + | 2019-01-27 00:00 | CEPHALEXIN | [facility] | + + + + | 2019-01-27 00:00 | CEPHALEXIN | [facility] | + + + + | 2019-01-27 00:00 | CEPHALEXIN | [facility] | + + + + | 2019-01-27 00:00 | CEPHALEXIN | [facility] | + + + + | 2017-08-07 00:00 | AZITHROMYCIN | [facility] | + + + + | 2017-08-07 00:00 | AZITHROMYCIN | [facility] | + + + + | 2017-08-07 00:00 | AZITHROMYCIN | [facility] | + + + + | 2017-08-07 00:00 | AZITHROMYCIN | [facility] | + + + + | 2017-08-07 00:00 | AZITHROMYCIN | [facility] | + + + + | 2017-08-07 00:00 | AZITHROMYCIN | [facility] | + + + + | 2017-08-07 00:00 | AZITHROMYCIN | [facility] | + + + + | 2022-03-14 00:00 | BETAMETHASONE DIPROPIONATE | [facility] | | | | | + + + + | 2016-11-17 00:00 | CEPHALEXIN | [facility] | + + + + | 2016-11-17 00:00 | CEPHALEXIN | [facility] | + + + + | 2016-11-17 00:00 | CEPHALEXIN | [facility] | + + + + | 2016-11-17 00:00 | CEPHALEXIN | [facility] | + + + + | 2016-11-17 00:00 | CEPHALEXIN | [facility] | + + + + | 2016-11-17 00:00 | CEPHALEXIN | [facility] | + + + + | 2016-11-17 00:00 | CEPHALEXIN | [facility] | + + + + | 2016-11-20 00:00 | CEPHALEXIN | [facility] | + + + + | 2016-11-20 00:00 | CEPHALEXIN | [facility] | + + + + | 2016-11-20 00:00 | CEPHALEXIN | [facility] | + + + + | 2016-11-20 00:00 | CEPHALEXIN | [facility] | + + + + | 2016-11-20 00:00 | CEPHALEXIN | [facility] | + + + + | 2016-11-20 00:00 | CEPHALEXIN | [facility] | + + + + | 2016-11-20 00:00 | CEPHALEXIN | [facility] | + + + + | 2022-02-03 00:00 | CEPHALEXIN | [facility] | + + + + | 2022-02-05 00:00 | CEPHALEXIN | [facility] | + + + + | 2022-02-06 00:00 | CEPHALEXIN | [facility] | + + + + | 2022-02-06 00:00 | CEPHALEXIN | [facility] | + + + + | 2022-02-07 00:00 | CEPHALEXIN | [facility] | + + + + | 2022-02-10 00:00 | CEPHALEXIN | [facility] | + + + + | 2022-02-16 00:00 | CEPHALEXIN | [facility] | + + + + | 2022-03-14 00:00 | CEPHALEXIN | [facility] | + + + + | 2022-03-19 00:00 | CEPHALEXIN | [facility] | + + + + | 2022-03-22 00:00 | CEPHALEXIN | [facility] | + + + + | 2022-10-13 00:00 | CEPHALEXIN | [facility] | + + + + | 2022-10-31 00:00 | CEPHALEXIN | [facility] | + + + + | 2022-11-21 00:00 | CEPHALEXIN | [facility] | + + + + | 2022-11-22 00:00 | CEPHALEXIN | [facility] | + + + + | 2022-11-23 00:00 | CEPHALEXIN | [facility] | + + + + | 2022-12-16 00:00 | CEPHALEXIN | [facility] | + + + + | 2022-12-21 00:00 | CEPHALEXIN | [facility] | + + + + | 2023-01-01 00:00 | CEPHALEXIN | [facility] | + + + + | 2023-01-10 00:00 | CEPHALEXIN | [facility] | + + + + | 2023-01-27 00:00 | CEPHALEXIN | [facility] | + + + + | 2020-07-15 00:00 | Erythromycin Base | [facility] | + + + + | 2020-07-15 00:00 | Erythromycin Base | [facility] | + + + + | 2020-07-15 00:00 | Erythromycin Base | [facility] | + + + + | 2020-07-15 00:00 | Erythromycin Base | [facility] | + + + + | 2020-07-15 00:00 | Erythromycin Base | [facility] | + + + + | 2020-07-15 00:00 | Erythromycin Base | [facility] | + + + + | 2020-07-15 00:00 | Erythromycin Base | [facility] | + + + + | 2022-10-13 00:00 | ONDANSETRON | [facility] | + + + + | 2022-02-03 00:00 | Oseltamivir Phosphate | [facility] | + + + + | 2022-02-05 00:00 | Oseltamivir Phosphate | [facility] | + + + + | 2022-02-06 00:00 | Oseltamivir Phosphate | [facility] | + + + + | 2022-02-06 00:00 | Oseltamivir Phosphate | [facility] | + + + + | 2022-02-07 00:00 | Oseltamivir Phosphate | [facility] | + + + + | 2022-02-10 00:00 | Oseltamivir Phosphate | [facility] | + + + + | 2022-02-16 00:00 | Oseltamivir Phosphate | [facility] | + + + + | 2022-03-14 00:00 | Oseltamivir Phosphate | [facility] | + + + + | 2022-03-19 00:00 | Oseltamivir Phosphate | [facility] | + + + + | 2022-03-22 00:00 | Oseltamivir Phosphate | [facility] | + + + + | 2022-10-13 00:00 | Oseltamivir Phosphate | [facility] | + + + + | 2022-10-31 00:00 | Oseltamivir Phosphate | [facility] | + + + + | 2022-11-21 00:00 | Oseltamivir Phosphate | [facility] | + + + + | 2022-11-22 00:00 | Oseltamivir Phosphate | [facility] | + + + + | 2022-11-23 00:00 | Oseltamivir Phosphate | [facility] | + + + + | 2022-12-16 00:00 | Oseltamivir Phosphate | [facility] | + + + + | 2022-12-21 00:00 | Oseltamivir Phosphate | [facility] | + + + + | 2023-01-01 00:00 | Oseltamivir Phosphate | [facility] | + + + + | 2023-01-10 00:00 | Oseltamivir Phosphate | [facility] | + + + + | 2023-01-27 00:00 | Oseltamivir Phosphate | [facility] | + + + + | 2022-02-03 00:00 | PIMOZIDE | [facility] | + + + + | 2022-02-05 00:00 | PIMOZIDE | [facility] | + + + + | 2022-02-06 00:00 | PIMOZIDE | [facility] | + + + + | 2022-02-06 00:00 | PIMOZIDE | [facility] | + + + + | 2022-02-07 00:00 | PIMOZIDE | [facility] | + + + + | 2022-02-10 00:00 | PIMOZIDE | [facility] | + + + + | 2022-02-16 00:00 | PIMOZIDE | [facility] | + + + + | 2022-03-14 00:00 | PIMOZIDE | [facility] | + + + + | 2022-03-19 00:00 | PIMOZIDE | [facility] | + + + + | 2022-03-22 00:00 | PIMOZIDE | [facility] | + + + + | 2022-10-13 00:00 | PIMOZIDE | [facility] | + + + + | 2022-10-31 00:00 | PIMOZIDE | [facility] | + + + + | 2022-11-21 00:00 | PIMOZIDE | [facility] | + + + + | 2022-11-22 00:00 | PIMOZIDE | [facility] | + + + + | 2022-11-23 00:00 | PIMOZIDE | [facility] | + + + + | 2022-12-16 00:00 | PIMOZIDE | [facility] | + + + + | 2022-12-21 00:00 | PIMOZIDE | [facility] | + + + + | 2023-01-01 00:00 | PIMOZIDE | [facility] | + + + + | 2023-01-10 00:00 | PIMOZIDE | [facility] | + + + + | 2023-01-27 00:00 | PIMOZIDE | [facility] | + + + + | 2017-06-18 00:00 | predniSONE | [facility] | + + + + | 2017-06-18 00:00 | predniSONE | [facility] | + + + + | 2017-06-18 00:00 | predniSONE | [facility] | + + + + | 2017-06-18 00:00 | predniSONE | [facility] | + + + + | 2017-06-18 00:00 | predniSONE | [facility] | + + + + | 2017-06-18 00:00 | predniSONE | [facility] | + + + + | 2017-06-18 00:00 | predniSONE | [facility] | + + + + | 2020-01-23 00:00 | predniSONE | [facility] | + + + + | 2020-01-23 00:00 | predniSONE | [facility] | + + + + | 2020-01-23 00:00 | predniSONE | [facility] | + + + + | 2020-01-23 00:00 | predniSONE | [facility] | + + + + 2020-01-23 00:00 | predniSONE | [facility] | + + + + | 2020-01-23 00:00 | predniSONE | [facility] | + + + + | 2020-01-23 00:00 | predniSONE | [facility] | + + + + | 2022-03-22 00:00 | predniSONE | [facility] | + + + + | 2016-05-14 00:00 | HALOPERIDOL | [facility] | + + + + | 2016-05-14 00:00 | HALOPERIDOL | [facility] | + + + + | 2016-05-14 00:00 | HALOPERIDOL | [facility] | + + + + | 2016-05-14 00:00 | HALOPERIDOL | [facility] | + + + + | 2016-05-14 00:00 | HALOPERIDOL | [facility] | + + + + | 2016-05-14 00:00 | HALOPERIDOL | [facility] | + + + + | 2016-05-14 00:00 | HALOPERIDOL | [facility] | + + + + | 2018-02-21 00:00 | HALOPERIDOL | [facility] | + + + + | 2018-02-21 00:00 | HALOPERIDOL | [facility] | + + + + | 2018-02-21 00:00 | HALOPERIDOL | [facility] | + + + + | 2018-02-21 00:00 | HALOPERIDOL | [facility] | + + + + | 2018-02-21 00:00 | HALOPERIDOL | [facility] | + + + + | 2018-02-21 00:00 | HALOPERIDOL | [facility] | + + + + | 2018-02-21 00:00 | HALOPERIDOL | [facility] | + + + + | 2022-02-03 00:00 | HALOPERIDOL | [facility] | + + + + | 2022-02-05 00:00 | HALOPERIDOL | [facility] | + + + + | 2022-02-06 00:00 | HALOPERIDOL | [facility] | + + + + | 2022-02-06 00:00 | HALOPERIDOL | [facility] | + + + + | 2022-02-07 00:00 | HALOPERIDOL | [facility] | + + + + | 2022-02-10 00:00 | HALOPERIDOL | [facility] | + + + + | 2022-02-16 00:00 | HALOPERIDOL | [facility] | + + + + | 2022-03-14 00:00 | HALOPERIDOL | [facility] | + + + + | 2022-03-19 00:00 | HALOPERIDOL | [facility] | + + + + | 2022-03-22 00:00 | HALOPERIDOL | [facility] | + + + + | 2022-10-13 00:00 | HALOPERIDOL | [facility] | + + + + | 2022-10-31 00:00 | HALOPERIDOL | [facility] | + + + + | 2022-11-21 00:00 | HALOPERIDOL | [facility] | + + + + | 2022-11-22 00:00 | HALOPERIDOL | [facility] | + + + + | 2022-11-23 00:00 | HALOPERIDOL | [facility] | + + + + | 2022-12-16 00:00 | HALOPERIDOL | [facility] | + + + + | 2022-12-21 00:00 | HALOPERIDOL | [facility] | + + + + | 2023-01-01 00:00 | HALOPERIDOL | [facility] | + + + + | 2023-01-10 00:00 | HALOPERIDOL | [facility] | + + + + | 2023-01-27 00:00 | HALOPERIDOL | [facility] | + + + + | 2021-07-02 00:00 | LISINOPRIL | [facility] | + + + + | 2021-07-02 00:00 | LISINOPRIL | [facility] | + + + + | 2021-07-02 00:00 | LISINOPRIL | [facility] | + + + + | 2021-07-02 00:00 | LISINOPRIL | [facility] | + + + + | 2021-07-02 00:00 | LISINOPRIL | [facility] | + + + + | 2021-07-02 00:00 | LISINOPRIL | [facility] | + + + + | 2021-07-02 00:00 | LISINOPRIL | [facility] | + + + + | 2023-01-01 00:00 | LISINOPRIL | [facility] | + + + + | 2023-01-01 00:00 | LISINOPRIL | [facility] | + + + + | 2023-01-01 00:00 | LISINOPRIL | [facility] | + + + + | 2023-01-10 00:00 | LISINOPRIL | [facility] | + + + + | 2023-01-27 00:00 | LISINOPRIL | [facility] | + + + + | 2023-01-01 00:00 | HYDROCHLOROTHIAZIDE | [facility] | + + + + | 2023-01-01 00:00 | HYDROCHLOROTHIAZIDE | [facility] | + + + + | 2023-01-01 00:00 | HYDROCHLOROTHIAZIDE | [facility] | + + + + | 2023-01-10 00:00 | HYDROCHLOROTHIAZIDE | [facility] | + + + + | 2023-01-27 00:00 | HYDROCHLOROTHIAZIDE | [facility] | + + + + | 2022-11-22 00:00 | AMOXICILLIN/POTASSIUM CLAV | [facility] | | | | | + + + + | 2022-11-22 00:00 | AMOXICILLIN/POTASSIUM CLAV | [facility] | | | | | + + + + | 2017-09-28 00:00 | ALBUTEROL SULFATE | [facility] | + + + + | 2017-09-28 00:00 | ALBUTEROL SULFATE | [facility] | + + + + | 2017-09-28 00:00 | ALBUTEROL SULFATE | [facility] | + + + + | 2017-09-28 00:00 | ALBUTEROL SULFATE | [facility] | + + + + | 2017-09-28 00:00 | ALBUTEROL SULFATE | [facility] | + + + + | 2017-09-28 00:00 | ALBUTEROL SULFATE | [facility] | + + + + | 2017-09-28 00:00 | ALBUTEROL SULFATE | [facility] | + + + + | 2017-09-07 00:00 | CLINDAMYCIN HCL | [facility] | + + + + | 2017-09-07 00:00 | CLINDAMYCIN HCL | [facility] | + + + + | 2017-09-07 00:00 | CLINDAMYCIN HCL | [facility] | + + + + | 2017-09-07 00:00 | CLINDAMYCIN HCL | [facility] | + + + + | 2017-09-07 00:00 | CLINDAMYCIN HCL | [facility] | + + + + | 2017-09-07 00:00 | CLINDAMYCIN HCL | [facility] | + + + + | 2017-09-07 00:00 | CLINDAMYCIN HCL | [facility] | + + + + | 2020-06-16 00:00 | CLINDAMYCIN HCL | [facility] | + + + + | 2020-06-16 00:00 | CLINDAMYCIN HCL | [facility] | + + + + | 2020-06-16 00:00 | CLINDAMYCIN HCL | [facility] | + + + + | 2020-06-16 00:00 | CLINDAMYCIN HCL | [facility] | + + + + | 2020-06-16 00:00 | CLINDAMYCIN HCL | [facility] | + + + + | 2020-06-16 00:00 | CLINDAMYCIN HCL | [facility] | + + + + | 2020-06-16 00:00 | CLINDAMYCIN HCL | [facility] | + + + + | 2020-07-12 00:00 | CLINDAMYCIN HCL | [facility] | + + + + | 2020-07-12 00:00 | CLINDAMYCIN HCL | [facility] | + + + + | 2020-07-12 00:00 | CLINDAMYCIN HCL | [facility] | + + + + | 2020-07-12 00:00 | CLINDAMYCIN HCL | [facility] | + + + + 2020-07-12 00:00 | CLINDAMYCIN HCL | [facility] | + + + + | 2020-07-12 00:00 | CLINDAMYCIN HCL | [facility] | + + + + | 2020-07-12 00:00 | CLINDAMYCIN HCL | [facility] | + + + + | 2022-11-23 00:00 | CLINDAMYCIN HCL | [facility] | + + + + | 2022-11-23 00:00 | CLINDAMYCIN HCL | [facility] | + + + + | 2017-08-07 00:00 | METHYLPREDNISOLONE | [facility] | + + + + | 2017-08-07 00:00 | METHYLPREDNISOLONE | [facility] | + + + + | 2017-08-07 00:00 | METHYLPREDNISOLONE | [facility] | + + + + | 2017-08-07 00:00 | METHYLPREDNISOLONE | [facility] | + + + + | 2017-08-07 00:00 | METHYLPREDNISOLONE | [facility] | + + + + | 2017-08-07 00:00 | METHYLPREDNISOLONE | [facility] | + + + + | 2017-08-07 00:00 | METHYLPREDNISOLONE | [facility] | + + + + | 2021-08-27 00:00 | Chlorhexidine Gluconate | [facility] | + + + + | 2021-08-27 00:00 | Chlorhexidine Gluconate | [facility] | + + + + | 2021-08-27 00:00 | Chlorhexidine Gluconate | [facility] | + + + + | 2021-08-27 00:00 | Chlorhexidine Gluconate | [facility] | + + + + | 2021-08-27 00:00 | Chlorhexidine Gluconate | [facility] | + + + + | 2021-08-27 00:00 | Chlorhexidine Gluconate | [facility] | + + + + | 2021-08-27 00:00 | Chlorhexidine Gluconate | [facility] | + + + + | 2014-02-25 00:00 | | [facility] | | | SULFAMETHOXAZOLE/TRIMETHOPR | | | | IM DS | | + + + + | 2014-02-25 00:00 | | [facility] | | | SULFAMETHOXAZOLE/TRIMETHOPR | | | | IM DS | | + + + + | 2014-02-25 00:00 | | [facility] | | | SULFAMETHOXAZOLE/TRIMETHOPR | | | | IM DS | | + + + + | 2014-02-25 00:00 | | [facility] | | | SULFAMETHOXAZOLE/TRIMETHOPR | | | | IM DS | | + + + + | 2014-02-25 00:00 | | [facility] | | | SULFAMETHOXAZOLE/TRIMETHOPR | | | | IM DS | | + + + + | 2014-02-25 00:00 | | [facility] | | | SULFAMETHOXAZOLE/TRIMETHOPR | | | | IM DS | | + + + + | 2014-02-25 00:00 | | [facility] | | | SULFAMETHOXAZOLE/TRIMETHOPR | | | | IM DS | | + + + + | 2017-10-08 00:00 | | [facility] | | | SULFAMETHOXAZOLE/TRIMETHOPR | | | | IM DS | | + + + + | 2017-10-08 00:00 | | [facility] | | | SULFAMETHOXAZOLE/TRIMETHOPR | | | | IM DS | | + + + + | 2017-10-08 00:00 | | [facility] | | | SULFAMETHOXAZOLE/TRIMETHOPR | | | | IM DS | | + + + + | 2017-10-08 00:00 | | [facility] | | | SULFAMETHOXAZOLE/TRIMETHOPR | | | | IM DS | | + + + + | 2017-10-08 00:00 | | [facility] | | | SULFAMETHOXAZOLE/TRIMETHOPR | | | | IM DS | | + + + + | 2017-10-08 00:00 | | [facility] | | | SULFAMETHOXAZOLE/TRIMETHOPR | | | | IM DS | | + + + + | 2017-10-08 00:00 | | [facility] | | | SULFAMETHOXAZOLE/TRIMETHOPR | | | | IM DS | | + + + + | 2022-01-31 00:00 | | [facility] | | | SULFAMETHOXAZOLE/TRIMETHOPR | | | | IM DS | | + + + + | 2017-06-18 00:00 | ALBUTEROL SULFATE | [facility] | + + + + | 2017-06-18 00:00 | ALBUTEROL SULFATE | [facility] | + + + + | 2017-06-18 00:00 | ALBUTEROL SULFATE | [facility] | + + + + | 2017-06-18 00:00 | ALBUTEROL SULFATE | [facility] | + + + + | 2017-06-18 00:00 | ALBUTEROL SULFATE | [facility] | + + + + | 2017-06-18 00:00 | ALBUTEROL SULFATE | [facility] | + + + + | 2017-06-18 00:00 | ALBUTEROL SULFATE | [facility] | + + + + | 2017-08-07 00:00 | ALBUTEROL SULFATE | [facility] | + + + + | 2017-08-07 00:00 | ALBUTEROL SULFATE | [facility] | + + + + | 2017-08-07 00:00 | ALBUTEROL SULFATE | [facility] | + + + + | 2017-08-07 00:00 | ALBUTEROL SULFATE | [facility] | + + + + | 2017-08-07 00:00 | ALBUTEROL SULFATE | [facility] | + + + + | 2017-08-07 00:00 | ALBUTEROL SULFATE | [facility] | + + + + | 2017-08-07 00:00 | ALBUTEROL SULFATE | [facility] | + + + + | 2022-02-03 00:00 | ONDANSETRON | [facility] | + + + + | 2022-02-05 00:00 | ONDANSETRON | [facility] | + + + + | 2022-02-06 00:00 | ONDANSETRON | [facility] | + + + + | 2022-02-06 00:00 | ONDANSETRON | [facility] | + + + + | 2022-02-07 00:00 | ONDANSETRON | [facility] | + + + + | 2022-02-10 00:00 | ONDANSETRON | [facility] | + + + + | 2022-02-16 00:00 | ONDANSETRON | [facility] | + + + + | 2022-03-14 00:00 | ONDANSETRON | [facility] | + + + + | 2022-03-19 00:00 | ONDANSETRON | [facility] | + + + + | 2022-03-22 00:00 | ONDANSETRON | [facility] | + + + + | 2022-10-13 00:00 | ONDANSETRON | [facility] | + + + + | 2022-10-31 00:00 | ONDANSETRON | [facility] | + + + + | 2022-11-21 00:00 | ONDANSETRON | [facility] | + + + + | 2022-11-22 00:00 | ONDANSETRON | [facility] | + + + + | 2022-11-23 00:00 | ONDANSETRON | [facility] | + + + + | 2022-12-16 00:00 | ONDANSETRON | [facility] | + + + + | 2022-12-21 00:00 | ONDANSETRON | [facility] | + + + + | 2023-01-01 00:00 | ONDANSETRON | [facility] | + + + + | 2023-01-10 00:00 | ONDANSETRON | [facility] | + + + + | 2023-01-27 00:00 | ONDANSETRON | [facility] | + + + + | 2020-12-15 00:00 | MECLIZINE HCL | [facility] | + + + + | 2020-12-15 00:00 | MECLIZINE HCL | [facility] | + + + + | 2020-12-15 00:00 | MECLIZINE HCL | [facility] | + + + + | 2020-12-15 00:00 | MECLIZINE HCL | [facility] | + + + + | 2020-12-15 00:00 | MECLIZINE HCL | [facility] | + + + + | 2020-12-15 00:00 | MECLIZINE HCL | [facility] | + + + + | 2020-12-15 00:00 | MECLIZINE HCL | [facility] | + + + + Problems + + + + | date | description | facility | + + + + | 2016-05-14 00:00 | Encounter for medication | [facility] | | | refill | | + + + + | 2016-05-14 00:00 | Encounter for medication | [facility] | | | refill | | + + + + | 2016-05-14 00:00 | Encounter for medication | [facility] | | | refill | | + + + + | 2016-05-14 00:00 | Encounter for medication | [facility] | | | refill | | + + + + | 2016-05-14 00:00 | Encounter for medication | [facility] | | | refill | | + + + + | 2016-05-14 00:00 | Encounter for medication | [facility] | | | refill | | + + + + | 2016-05-14 00:00 | Encounter for medication | [facility] | | | refill | | + + + + | 2016-08-19 00:00 | Encounter for medical | [facility] | | | screening examination | | + + + + | 2016-08-19 00:00 | Encounter for medical | [facility] | | | screening examination | | + + + + | 2016-08-19 00:00 | Encounter for medical | [facility] | | | screening examination | | + + + + | 2016-08-19 00:00 | Encounter for medical | [facility] | | | screening examination | | + + + + | 2016-08-19 00:00 | Encounter for medical | [facility] | | | screening examination | | + + + + | 2016-08-19 00:00 | Encounter for medical | [facility] | | | screening examination | | + + + + | 2016-08-19 00:00 | Encounter for medical | [facility] | | | screening examination | | + + + + | 2016-10-10 00:00 | Constipation | [facility] | + + + + | 2016-10-10 00:00 | Constipation | [facility] | + + + + | 2016-10-10 00:00 | Constipation | [facility] | + + + + | 2016-10-10 00:00 | Constipation | [facility] | + + + + | 2016-10-10 00:00 | Constipation | [facility] | + + + + | 2016-10-10 00:00 | Constipation | [facility] | + + + + | 2016-10-10 00:00 | Constipation | [facility] | + + + + | 2016-10-10 00:00 | Nonspecific abdominal pain | [facility] | | | | | + + + + | 2016-10-10 00:00 | Nonspecific abdominal pain | [facility] | | | | | + + + + | 2016-10-10 00:00 | Nonspecific abdominal pain | [facility] | | | | | + + + + | 2016-10-10 00:00 | Nonspecific abdominal pain | [facility] | | | | | + + + + | 2016-10-10 00:00 | Nonspecific abdominal pain | [facility] | | | | | + + + + | 2016-10-10 00:00 | Nonspecific abdominal pain | [facility] | | | | | + + + + | 2016-10-10 00:00 | Nonspecific abdominal pain | [facility] | | | | | + + + + | 2016-10-31 00:00 | Methamphetamine abuse | [facility] | + + + + | 2016-10-31 00:00 | Methamphetamine abuse | [facility] | + + + + | 2016-10-31 00:00 | Methamphetamine abuse | [facility] | + + + + | 2016-10-31 00:00 | Methamphetamine abuse | [facility] | + + + + | 2016-10-31 00:00 | Methamphetamine abuse | [facility] | + + + + | 2016-10-31 00:00 | Methamphetamine abuse | [facility] | + + + + | 2016-10-31 00:00 | Methamphetamine abuse | [facility] | + + + + | 2016-10-31 00:00 | Chronic abdominal pain | [facility] | + + + + | 2016-10-31 00:00 | Chronic abdominal pain | [facility] | + + + + | 2016-10-31 00:00 | Chronic abdominal pain | [facility] | + + + + | 2016-10-31 00:00 | Chronic abdominal pain | [facility] | + + + + | 2016-10-31 00:00 | Chronic abdominal pain | [facility] | + + + + | 2016-10-31 00:00 | Chronic abdominal pain | [facility] | + + + + | 2016-10-31 00:00 | Chronic abdominal pain | [facility] | + + + + | 2016-10-31 00:00 | Weight loss | [facility] | + + + + | 2016-10-31 00:00 | Weight loss | [facility] | + + + + | 2016-10-31 00:00 | Weight loss | [facility] | + + + + | 2016-10-31 00:00 | Weight loss | [facility] | + + + + | 2016-10-31 00:00 | Weight loss | [facility] | + + + + | 2016-10-31 00:00 | Weight loss | [facility] | + + + + | 2016-10-31 00:00 | Weight loss | [facility] | + + + + | 2016-11-17 00:00 | Cellulitis | [facility] | + + + + | 2016-11-17 00:00 | Cellulitis | [facility] | + + + + | 2016-11-17 00:00 | Cellulitis | [facility] | + + + + | 2016-11-17 00:00 | Cellulitis | [facility] | + + + + | 2016-11-17 00:00 | Cellulitis | [facility] | + + + + | 2016-11-17 00:00 | Cellulitis | [facility] | + + + + | 2016-11-17 00:00 | Cellulitis | [facility] | + + + + | 2017-01-04 00:00 | 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 | | + + + + | 2017-01-04 00:00 | 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 | | + + + + | 2017-01-04 00:00 | 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 | | + + + + | 2017-01-04 00:00 | 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 | | + + + + | 2017-01-04 00:00 | 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 | | + + + + | 2017-01-04 00:00 | 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 | | + + + + | 2017-01-04 00:00 | 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 | | + + + + | 2017-06-09 00:00 | Patient left without being | [facility] | | | seen | | + + + + | 2017-06-09 00:00 | Patient left without being | [facility] | | | seen | | + + + + | 2017-06-09 00:00 | Patient left without being | [facility] | | | seen | | + + + + | 2017-06-09 00:00 | Patient left without being | [facility] | | | seen | | + + + + | 2017-06-09 00:00 | Patient left without being | [facility] | | | seen | | + + + + | 2017-06-09 00:00 | Patient left without being | [facility] | | | seen | | + + + + | 2017-06-09 00:00 | Patient left without being | [facility] | | | seen | | + + + + | 2017-06-18 00:00 | Obstructive chronic | [facility] | | | bronchitis with | | | | exacerbation | | + + + + | 2017-06-18 00:00 | Obstructive chronic | [facility] | | | bronchitis with | | | | exacerbation | | + + + + | 2017-06-18 00:00 | Obstructive chronic | [facility] | | | bronchitis with | | | | exacerbation | | + + + + | 2017-06-18 00:00 | Obstructive chronic | [facility] | | | bronchitis with | | | | exacerbation | | + + + + | 2017-06-18 00:00 | Obstructive chronic | [facility] | | | bronchitis with | | | | exacerbation | | + + + + | 2017-06-18 00:00 | Obstructive chronic | [facility] | | | bronchitis with | | | | exacerbation | | + + + + | 2017-06-18 00:00 | Obstructive chronic | [facility] | | | bronchitis with | | | | exacerbation | | + + + + | 2017-06-18 00:00 | Dyspnea on exertion | [facility] | + + + + | 2017-06-18 00:00 | Dyspnea on exertion | [facility] | + + + + | 2017-06-18 00:00 | Dyspnea on exertion | [facility] | + + + + | 2017-06-18 00:00 | Dyspnea on exertion | [facility] | + + + + | 2017-06-18 00:00 | Dyspnea on exertion | [facility] | + + + + | 2017-06-18 00:00 | Dyspnea on exertion | [facility] | + + + + | 2017-06-18 00:00 | Dyspnea on exertion | [facility] | + + + + | 2017-08-07 00:00 | Bronchitis | [facility] | + + + + | 2017-08-07 00:00 | Bronchitis | [facility] | + + + + | 2017-08-07 00:00 | Bronchitis | [facility] | + + + + | 2017-08-07 00:00 | Bronchitis | [facility] | + + + + | 2017-08-07 00:00 | Bronchitis | [facility] | + + + + | 2017-08-07 00:00 | Bronchitis | [facility] | + + + + | 2017-08-07 00:00 | Bronchitis | [facility] | + + + + | 2017-09-07 00:00 | Paronychia of finger of | [facility] | | | right hand | | + + + + | 2017-09-07 00:00 | Paronychia of finger of [facility] | | | right hand | | + + + + | 2017-09-07 00:00 | Paronychia of finger of [facility] | | | right hand | | + + + + | 2017-09-07 00:00 | Paronychia of finger of [facility] | | | right hand | | + + + + | 2017-09-07 00:00 | Paronychia of finger of [facility] | | | right hand | | + + + + | 2017-09-07 00:00 | Paronychia of finger of | [facility] | | | right hand | | + + + + | 2017-09-07 00:00 | Paronychia of finger of | [facility] | | | right hand | | + + + + | 2017-09-28 00:00 | Upper respiratory tract | [facility] | | | infection | | + + + + | 2017-09-28 00:00 | Upper respiratory tract | [facility] | | | infection | | + + + + | 2017-09-28 00:00 | Upper respiratory tract | [facility] | | | infection | | + + + + | 2017-09-28 00:00 | Upper respiratory tract | [facility] | | | infection | | + + + + | 2017-09-28 00:00 | Upper respiratory tract | [facility] | | | infection | | + + + + | 2017-09-28 00:00 | Upper respiratory tract | [facility] | | | infection | | + + + + | 2017-09-28 00:00 | Upper respiratory tract | [facility] | | | infection | | + + + + | 2019-01-27 00:00 | Cellulitis of lower | [facility] | | | extremity | | + + + + | 2019-01-27 00:00 | Cellulitis of lower | [facility] | | | extremity | | + + + + | 2019-01-27 00:00 | Cellulitis of lower | [facility] | | | extremity | | + + + + | 2019-01-27 00:00 | Cellulitis of lower | [facility] | | | extremity | | + + + + | 2019-01-27 00:00 | Cellulitis of lower | [facility] | | | extremity | | + + + + | 2019-01-27 00:00 | Cellulitis of lower | [facility] | | | extremity | | + + + + | 2019-01-27 00:00 | Cellulitis of lower | [facility] | | | extremity | | + + + + | 2020-01-23 00:00 | Gout | [facility] | + + + + | 2020-01-23 00:00 | Gout | [facility] | + + + + | 2020-01-23 00:00 | Gout | [facility] | + + + + | 2020-01-23 00:00 | Gout | [facility] | + + + + | 2020-01-23 00:00 | Gout | [facility] | + + + + | 2020-01-23 00:00 | Gout | [facility] | + + + + | 2020-01-23 00:00 | Gout | [facility] | + + + + 2020-05-09 00:00 | Rectal fissure | [facility] | + + + + | 2020-05-09 00:00 | Rectal fissure | [facility] | + + + + | 2020-05-09 00:00 | Rectal fissure | [facility] | + + + + | 2020-05-09 00:00 | Rectal fissure | [facility] | + + + + 2020-05-09 00:00 | Rectal fissure | [facility] | + + + + 2020-05-09 00:00 | Rectal fissure | [facility] | + + + + | 2020-05-09 00:00 | Rectal fissure | [facility] | + + + + | 2020-07-15 00:00 | Cannabis abuse | [facility] | + + + + | 2020-07-15 00:00 | Cannabis abuse | [facility] | + + + + 2020-07-15 00:00 | Cannabis abuse | [facility] | + + + + 2020-07-15 00:00 | Cannabis abuse | [facility] | + + + + | 2020-07-15 00:00 | Cannabis abuse | [facility] | + + + + | 2020-07-15 00:00 | Cannabis abuse | [facility] | + + + + | 2020-07-15 00:00 | Cannabis abuse | [facility] | + + + + 2020-07-15 00:00 | Acute kidney injury | [facility] | + + + + | 2020-07-15 00:00 | Acute kidney injury | [facility] | + + + + | 2020-07-15 00:00 | Acute kidney injury | [facility] | + + + + | 2020-07-15 00:00 | Acute kidney injury | [facility] | + + + + | 2020-07-15 00:00 | Acute kidney injury | [facility] | + + + + 2020-07-15 00:00 | Acute kidney injury | [facility] | + + + + 2020-07-15 00:00 | Acute kidney injury | [facility] | + + + + | 2020-07-15 00:00 | Elevated transaminase | [facility] | | | measurement | | + + + + | 2020-07-15 00:00 | Elevated transaminase | [facility] | | | measurement | | + + + + | 2020-07-15 00:00 | Elevated transaminase | [facility] | | | measurement | | + + + + | 2020-07-15 00:00 | Elevated transaminase | [facility] | | | measurement | | + + + + | 2020-07-15 00:00 | Elevated transaminase | [facility] | | | measurement | | + + + + | 2020-07-15 00:00 | Elevated transaminase | [facility] | | | measurement | | + + + + | 2020-07-15 00:00 | Elevated transaminase | [facility] | | | measurement | | + + + + | 2020-07-15 00:00 | Abrasion of left cornea | [facility] | + + + + | 2020-07-15 00:00 | Abrasion of left cornea | [facility] | + + + + | 2020-07-15 00:00 | Abrasion of left cornea | [facility] | + + + + | 2020-07-15 00:00 | Abrasion of left cornea | [facility] | + + + + | 2020-07-15 00:00 | Abrasion of left cornea | [facility] | + + + + | 2020-07-15 00:00 | Abrasion of left cornea | [facility] | + + + + 2020-07-15 00:00 | Abrasion of left cornea | [facility] | + + + + | 2020-09-17 00:00 | 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[facility] | + + + + | 2020-09-17 00:00 | 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[facility] | + + + + | 2020-09-17 00:00 | 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[facility] | + + + + | 2020-09-17 00:00 | 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[facility] | + + + + | 2020-09-17 00:00 | 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[facility] | + + + + | 2020-09-17 00:00 | 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[facility] | + + + + | 2020-09-17 00:00 | 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[facility] | + + + + | 2020-11-13 00:00 | Drug use | [facility] | + + + + | 2020-11-13 00:00 | Drug use | [facility] | + + + + | 2020-11-13 00:00 | Drug use | [facility] | + + + + | 2020-11-13 00:00 | Drug use | [facility] | + + + + | 2020-11-13 00:00 | Drug use | [facility] | + + + + | 2020-11-13 00:00 | Drug use | [facility] | + + + + | 2020-11-13 00:00 | Drug use | [facility] | + + + + | 2020-12-15 00:00 | Vertigo | [facility] | + + + + | 2020-12-15 00:00 | Vertigo | [facility] | + + + + | 2020-12-15 00:00 | Vertigo | [facility] | + + + + | 2020-12-15 00:00 | Vertigo | [facility] | + + + + | 2020-12-15 00:00 | Vertigo | [facility] | + + + + | 2020-12-15 00:00 | Vertigo | [facility] | + + + + | 2020-12-15 00:00 | Vertigo | [facility] | + + + + | 2021-02-08 00:00 | Eczema of both hands | [facility] | + + + + | 2021-02-08 00:00 | Eczema of both hands | [facility] | + + + + | 2021-02-08 00:00 | Eczema of both hands | [facility] | + + + + | 2021-02-08 00:00 | Eczema of both hands | [facility] | + + + + | 2021-02-08 00:00 | Eczema of both hands | [facility] | + + + + | 2021-02-08 00:00 | Eczema of both hands | [facility] | + + + + | 2021-02-08 00:00 | Eczema of both hands | [facility] | + + + + | 2021-04-03 00:00 | Dehydration | [facility] | + + + + | 2021-04-03 00:00 | Dehydration | [facility] | + + + + | 2021-04-03 00:00 | Dehydration | [facility] | + + + + | 2021-04-03 00:00 | Dehydration | [facility] | + + + + | 2021-04-03 00:00 | Dehydration | [facility] | + + + + | 2021-04-03 00:00 | Dehydration | [facility] | + + + + | 2021-04-03 00:00 | Dehydration | [facility] | + + + + | 2021-04-03 00:00 | Enteritis | [facility] | + + + + | 2021-04-03 00:00 | Enteritis | [facility] | + + + + | 2021-04-03 00:00 | Enteritis | [facility] | + + + + | 2021-04-03 00:00 | Enteritis | [facility] | + + + + | 2021-04-03 00:00 | Enteritis | [facility] | + + + + | 2021-04-03 00:00 | Enteritis | [facility] | + + + + | 2021-04-03 00:00 | Enteritis | [facility] | + + + + | 2021 00:00 | Parasite not detected | [facility] | + + + + | 2021 00:00 | Parasite not detected | [facility] | + + + + | 2021 00:00 | Parasite not detected | [facility] | + + + + | 2021 00:00 | Parasite not detected | [facility] | + + + + | 2021 00:00 | Parasite not detected | [facility] | + + + + | 2021 00:00 | Parasite not detected | [facility] | + + + + | 2021 00:00 | Parasite not detected | [facility] | + + + + | 2021 00:00 | Pain of hand | [facility] | + + + + | 2021 00:00 | Pain of hand | [facility] | + + + + | 2021 00:00 | Pain of hand | [facility] | + + + + | 2021 00:00 | Pain of hand | [facility] | + + + + | 2021 00:00 | Pain of hand | [facility] | + + + + | 2021 00:00 | Pain of hand | [facility] | + + + + | 2021 00:00 | Pain of hand | [facility] | + + + + | 2021-05-18 00:00 | Viral infection | [facility] | + + + + | 2021-05-18 00:00 | Viral infection | [facility] | + + + + | 2021-05-18 00:00 | Viral infection | [facility] | + + + + | 2021-05-18 00:00 | Viral infection | [facility] | + + + + | 2021-05-18 00:00 | Viral infection | [facility] | + + + + | 2021-05-18 00:00 | Viral infection | [facility] | + + + + | 2021-05-18 00:00 | Viral infection | [facility] | + + + + | 2021-07-02 00:00 | Acute bronchitis | [facility] | + + + + | 2021-07-02 00:00 | Acute bronchitis | [facility] | + + + + | 2021-07-02 00:00 | Acute bronchitis | [facility] | + + + + | 2021-07-02 00:00 | Acute bronchitis | [facility] | + + + + | 2021-07-02 00:00 | Acute bronchitis | [facility] | + + + + | 2021-07-02 00:00 | Acute bronchitis | [facility] | + + + + | 2021-07-02 00:00 | Acute bronchitis | [facility] | + + + + | 2021-07-13 00:00 | Dizziness | [facility] | + + + + | 2021-07-13 00:00 | Dizziness | [facility] | + + + + | 2021-07-13 00:00 | Dizziness | [facility] | + + + + | 2021-07-13 00:00 | Dizziness | [facility] | + + + + | 2021-07-13 00:00 | Dizziness | [facility] | + + + + | 2021-07-13 00:00 | Dizziness | [facility] | + + + + | 2021-07-13 00:00 | Dizziness | [facility] | + + + + | 2021-08-27 00:00 | Schizoaffective disorder | [facility] | + + + + | 2021-08-27 00:00 | Schizoaffective disorder | [facility] | + + + + | 2021-08-27 00:00 | Schizoaffective disorder | [facility] | + + + + | 2021-08-27 00:00 | Schizoaffective disorder | [facility] | + + + + | 2021-08-27 00:00 | Schizoaffective disorder | [facility] | + + + + | 2021-08-27 00:00 | Schizoaffective disorder | [facility] | + + + + | 2021-08-27 00:00 | Schizoaffective disorder | [facility] | + + + + | 2021-08-27 00:00 | Stomatitis | [facility] | + + + + | 2021-08-27 00:00 | Stomatitis | [facility] | + + + + | 2021-08-27 00:00 | Stomatitis | [facility] | + + + + | 2021-08-27 00:00 | Stomatitis | [facility] | + + + + | 2021-08-27 00:00 | Stomatitis | [facility] | + + + + | 2021-08-27 00:00 | Stomatitis | [facility] | + + + + | 2021-08-27 00:00 | Stomatitis | [facility] | + + + + | 2021-09-22 00:00 | Vomiting | [facility] | + + + + | 2021-09-22 00:00 | Vomiting | [facility] | + + + + | 2021-09-22 00:00 | Vomiting | [facility] | + + + + | 2021-09-22 00:00 | Vomiting | [facility] | + + + + | 2021-09-22 00:00 | Vomiting | [facility] | + + + + | 2021-09-22 00:00 | Vomiting | [facility] | + + + + | 2021-09-22 00:00 | Vomiting | [facility] | + + + + | 2021-11-12 00:00 | Pneumonia | [facility] | + + + + | 2021-11-12 00:00 | Pneumonia | [facility] | + + + + | 2021-11-12 00:00 | Pneumonia | [facility] | + + + + | 2021-11-12 00:00 | Pneumonia | [facility] | + + + + | 2021-11-12 00:00 | Pneumonia | [facility] | + + + + | 2021-11-12 00:00 | Pneumonia | [facility] | + + + + | 2021-11-12 00:00 | Pneumonia | [facility] | + + + + | 2022-01-03 00:00 | Dental abscess | [facility] | + + + + | 2022-01-03 00:00 | Dental abscess | [facility] | + + + + | 2022-01-03 00:00 | Dental abscess | [facility] | + + + + | 2022-01-03 00:00 | Dental abscess | [facility] | + + + + | 2022-01-03 00:00 | Dental abscess | [facility] | + + + + | 2022-01-03 00:00 | Dental abscess | [facility] | + + + + | 2022-01-03 00:00 | Dental abscess | [facility] | + + + + | 2022-01-14 00:00 | Parasitic infestation | [facility] | + + + + | 2022-01-14 00:00 | Parasitic infestation | [facility] | + + + + | 2022-01-14 00:00 | Parasitic infestation | [facility] | + + + + | 2022-01-14 00:00 | Parasitic infestation | [facility] | + + + + | 2022-01-14 00:00 | Parasitic infestation | [facility] | + + + + | 2022-01-14 00:00 | Parasitic infestation | [facility] | + + + + | 2022-01-14 00:00 | Parasitic infestation | [facility] | + + + + | 2022-01-23 00:00 | Cellulitis of finger of | [facility] | | | left hand | | + + + + | 2022-01-23 00:00 | Cellulitis of finger of | [facility] | | | left hand | | + + + + | 2022-01-23 00:00 | Cellulitis of finger of | [facility] | | | left hand | | + + + + | 2022-01-23 00:00 | Cellulitis of finger of | [facility] | | | left hand | | + + + + | 2022-01-23 00:00 | Cellulitis of finger of | [facility] | | | left hand | | + + + + | 2022-01-23 00:00 | Cellulitis of finger of | [facility] | | | left hand | | + + + + | 2022-01-23 00:00 | Cellulitis of finger of [facility] | | | left hand | | + + + + | 2022-01-25 00:00 | Swelling | [facility] | + + + + | 2022-01-25 00:00 | Swelling | [facility] | + + + + | 2022-01-25 00:00 | Swelling | [facility] | + + + + | 2022-01-25 00:00 | Swelling | [facility] | + + + + | 2022-01-25 00:00 | Swelling | [facility] | + + + + | 2022-01-25 00:00 | Swelling | [facility] | + + + + | 2022-01-25 00:00 | Swelling | [facility] | + + + + | 2022-01-28 00:00 | Cellulitis of left ring | [facility] | | | finger | | + + + + | 2022-01-28 00:00 | Cellulitis of left ring | [facility] | | | finger | | + + + + | 2022-01-28 00:00 | Cellulitis of left ring | [facility] | | | finger | | + + + + | 2022-01-28 00:00 | Cellulitis of left ring | [facility] | | | finger | | + + + + | 2022-01-28 00:00 | Cellulitis of left ring | [facility] | | | finger | | + + + + | 2022-01-28 00:00 | Cellulitis of left ring | [facility] | | | finger | | + + + + | 2022-01-28 00:00 | Cellulitis of left ring | [facility] | | | finger | | + + + + | 2022-02-10 00:00 | Injury of extremity | [facility] | + + + + | 2022-02-10 00:00 | Injury of extremity | [facility] | + + + + | 2022-02-10 00:00 | Injury of extremity | [facility] | + + + + | 2022-02-10 00:00 | Injury of extremity | [facility] | + + + + | 2022-02-10 00:00 | Injury of extremity | [facility] | + + + + | 2022-02-10 00:00 | Injury of extremity | [facility] | + + + + | 2022-03-10 00:00 | Cellulitis of thumb | [facility] | + + + + | 2022-03-10 00:00 | Cellulitis of thumb | [facility] | + + + + | 2022-03-10 00:00 | Cellulitis of thumb | [facility] | + + + + | 2022-03-10 00:00 | Cellulitis of thumb | [facility] | + + + + | 2022-03-10 00:00 | Cellulitis of thumb | [facility] | + + + + | 2022-03-10 00:00 | Cellulitis of thumb | [facility] | + + + + | 2022-03-10 00:00 | Formication | [facility] | + + + + | 2022-03-10 00:00 | Formication | [facility] | + + + + | 2022-03-10 00:00 | Formication | [facility] | + + + + | 2022-03-10 00:00 | Formication | [facility] | + + + + | 2022-03-10 00:00 | Formication | [facility] | + + + + | 2022-03-10 00:00 | Formication | [facility] | + + + + | 2022-03-14 00:00 | 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[facility] | + + + + | 2022-03-14 00:00 | 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[facility] | + + + + | 2022-03-14 00:00 | 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[facility] | + + + + | 2022-03-14 00:00 | 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[facility] | + + + + | 2022-03-14 00:00 | 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[facility] | + + + + | 2022-03-22 00:00 | Swelling of hand | [facility] | + + + + | 2022-03-22 00:00 | Swelling of hand | [facility] | + + + + | 2022-03-22 00:00 | Swelling of hand | [facility] | + + + + | 2022-03-22 00:00 | Swelling of hand | [facility] | + + + + | 2022-03-22 00:00 | Swelling of hand | [facility] | + + + + | 2022-11-23 00:00 | Dental caries | [facility] | + + + + | 2022-11-23 00:00 | Dental caries | [facility] | + + + + | 2022-11-23 00:00 | Dental caries | [facility] | + + + + | 2022-11-23 00:00 | Dental caries | [facility] | + + + + | 2022-11-23 00:00 | Dental caries | [facility] | + + + + | 2022-11-23 00:00 | Abscess of face | [facility] | + + + + | 2022-11-23 00:00 | Abscess of face | [facility] | + + + + | 2022-11-23 00:00 | Abscess of face | [facility] | + + + + | 2022-11-23 00:00 | Abscess of face | [facility] | + + + + | 2022-11-23 00:00 | Abscess of face | [facility] | + + + + | 2022-12-16 00:00 | Dizziness of unknown | [facility] | | | etiology | | + + + + | 2022-12-16 00:00 | Dizziness of unknown | [facility] | | | etiology | | + + + + | 2022-12-16 00:00 | Dizziness of unknown | [facility] | | | etiology | | + + + + | 2022-12-16 00:00 | Dizziness of unknown | [facility] | | | etiology | | + + + + | 2022-12-16 00:00 | Dizziness of unknown | [facility] | | | etiology | [...] + + | 2022-12-16 20:45 | 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) | [facility] | | | DRUG [...] + + | 2022-12-21 12:34 | OTHER CUSTODIAL (CURRENT) | [facility] | | | DRUG THERAPY | | + + + + | 2023-01-01 00:00 | Infestation by Sarcoptes | [facility] | | | scabiei | | + + + + | 2023-01-01 00:00 | Infestation by Sarcoptes | [facility] | | | scabiei | | + + + + | 2023-01-01 00:00 | Infestation by Sarcoptes | [facility] | | | scabiei | | + + + + | 2023-01-01 00:00 | Hypothyroidism | [facility] | + + + + | 2023-01-01 00:00 | Hypothyroidism | [facility] | + + + + | 2023-01-01 00:00 | Hypothyroidism | [facility] | + + + + | 2023-01-01 00:00 | Hypertension | [facility] | + + + + | 2023-01-01 00:00 | Hypertension | [facility] | + + + + | 2023-01-01 00:00 | Hypertension | [facility] | + + + + [...] + + | 2023-01-01 18:29 | OTHER CUSTODIAL (CURRENT) | [facility] | | | DRUG [...] + + | 2023-01-10 07:21 | 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
--- OUTSIDE RECORDS SUMMARY | ~2023-01-29 | XMS | Continuity of Care Document ---
Demographics + + + | Address | [address] | | | [place] [address] | + + + | Preferred Language | Unknown | + + + | Marital Status | Never | + + + | Buddhist Affiliation | Unknown | + + + | Race | White | + + + | Ethnic Group | Not or | + + + Author + + + | Author | [facility] | + + + | Organization | [facility] | + + + | Address | [address] | | | [place] [address] | + + + | Phone | | + + + Care Team Providers + + + + | Care Manager Actuarial Name | Role | Phone | + [...] | (no date) | Mild | [facility] | (unknown) | | | | Hospital [...] + + | 2017-09-28 00:00 | | [facility] | | | Guaifenesin/Dextromethorpha | | | | n | | + + + + | 2017-09-28 00:00 | | [facility] | | | Guaifenesin/Dextromethorpha | | | | n | | + + + + | 2017-09-28 00:00 | | [facility] | | | Guaifenesin/Dextromethorpha | | | | n | | + + + + | 2017-09-28 00:00 | | [facility] | | | Guaifenesin/Dextromethorpha | | | | n | | + + + + | 2017-09-28 00:00 | | [facility] | | | Guaifenesin/Dextromethorpha | | | | n | | + + + + | 2017-09-28 00:00 | | [facility] | | | Guaifenesin/Dextromethorpha | | | | n | | + + + + | 2017-09-28 00:00 | | [facility] | | | Guaifenesin/Dextromethorpha | | | | n | | + + + + | 2021-04-03 00:00 | ONDANSETRON HCL | [facility] | + + + + | 2021-04-03 00:00 | ONDANSETRON HCL | [facility] | + + + + | 2021-04-03 00:00 | ONDANSETRON HCL | [facility] | + + + + | 2021-04-03 00:00 | ONDANSETRON HCL | [facility] | + + + + | 2021-04-03 00:00 | ONDANSETRON HCL | [facility] | + + + + | 2021-04-03 00:00 | ONDANSETRON HCL | [facility] | + + + + | 2021-04-03 00:00 | ONDANSETRON HCL | [facility] | + + + + | 2021-02-08 00:00 | TRIAMCINOLONE ACETONIDE | [facility] | + + + + | 2021-02-08 00:00 | TRIAMCINOLONE ACETONIDE | [facility] | + + + + | 2021-02-08 00:00 | TRIAMCINOLONE ACETONIDE | [facility] | + + + + | 2021-02-08 00:00 | TRIAMCINOLONE ACETONIDE | [facility] | + + + + | 2021-02-08 00:00 | TRIAMCINOLONE ACETONIDE | [facility] | + + + + | 2021-02-08 00:00 | TRIAMCINOLONE ACETONIDE | [facility] | + + + + | 2021-02-08 00:00 | TRIAMCINOLONE ACETONIDE | [facility] | + + + + | 2021-08-27 00:00 | OLANZAPINE | [facility] | + + + + | 2021-08-27 00:00 | OLANZAPINE | [facility] | + + + + | 2021-08-27 00:00 | OLANZAPINE | [facility] | + + + + | 2021-08-27 00:00 | OLANZAPINE | [facility] | + + + + | 2021-08-27 00:00 | OLANZAPINE | [facility] | + + + + | 2021-08-27 00:00 | OLANZAPINE | [facility] | + + + + | 2021-08-27 00:00 | OLANZAPINE | [facility] | + + + + | 2021-09-01 00:00 | OLANZAPINE | [facility] | + + + + | 2021-09-01 00:00 | OLANZAPINE | [facility] | + + + + | 2021-09-01 00:00 | OLANZAPINE | [facility] | + + + + | 2021-09-01 00:00 | OLANZAPINE | [facility] | + + + + | 2021-09-01 00:00 | OLANZAPINE | [facility] | + + + + | 2021-09-01 00:00 | OLANZAPINE | [facility] | + + + + | 2021-09-01 00:00 | OLANZAPINE | [facility] | + + + + | 2022-10-13 00:00 | DOXYCYCLINE HYCLATE | [facility] | + + + + | 2022-01-31 00:00 | AMLODIPINE BESYLATE | [facility] | + + + + | 2022-01-31 00:00 | AMLODIPINE BESYLATE | [facility] | + + + + | 2022-01-31 00:00 | AMLODIPINE BESYLATE | [facility] | + + + + | 2022-01-23 00:00 | CEPHALEXIN | [facility] | + + + + | 2022-01-23 00:00 | CEPHALEXIN | [facility] | + + + + | 2022-01-23 00:00 | CEPHALEXIN | [facility] | + + + + | 2022-01-23 00:00 | CEPHALEXIN | [facility] | + + + + | 2022-01-23 00:00 | CEPHALEXIN | [facility] | + + + + | 2022-01-23 00:00 | CEPHALEXIN | [facility] | + + + + | 2022-01-23 00:00 | CEPHALEXIN | [facility] | + + + + | 2022-03-10 00:00 | CEPHALEXIN | [facility] | + + + + | 2022-03-10 00:00 | CEPHALEXIN | [facility] | + + + + | 2017-09-07 00:00 | IBUPROFEN | [facility] | + + + + | 2017-09-07 00:00 | IBUPROFEN | [facility] | + + + + | 2017-09-07 00:00 | IBUPROFEN | [facility] | + + + + | 2017-09-07 00:00 | IBUPROFEN | [facility] | + + + + | 2017-09-07 00:00 | IBUPROFEN | [facility] | + + + + | 2017-09-07 00:00 | IBUPROFEN | [facility] | + + + + | 2017-09-07 00:00 | IBUPROFEN | [facility] | + + + + | 2023-01-01 00:00 | PERMETHRIN | [facility] | + + + + | 2023-01-01 00:00 | PERMETHRIN | [facility] | + + + + | 2023-01-01 00:00 | PERMETHRIN | [facility] | + + + + | 2019-01-27 00:00 | CEPHALEXIN | [facility] | + + + + | 2019-01-27 00:00 | CEPHALEXIN | [facility] | + + + + | 2019-01-27 00:00 | CEPHALEXIN | [facility] | + + + + | 2019-01-27 00:00 | CEPHALEXIN | [facility] | + + + + | 2019-01-27 00:00 | CEPHALEXIN | [facility] | + + + + | 2019-01-27 00:00 | CEPHALEXIN | [facility] | + + + + | 2019-01-27 00:00 | CEPHALEXIN | [facility] | + + + + | 2017-08-07 00:00 | AZITHROMYCIN | [facility] | + + + + | 2017-08-07 00:00 | AZITHROMYCIN | [facility] | + + + + | 2017-08-07 00:00 | AZITHROMYCIN | [facility] | + + + + | 2017-08-07 00:00 | AZITHROMYCIN | [facility] | + + + + | 2017-08-07 00:00 | AZITHROMYCIN | [facility] | + + + + | 2017-08-07 00:00 | AZITHROMYCIN | [facility] | + + + + | 2017-08-07 00:00 | AZITHROMYCIN | [facility] | + + + + | 2022-03-14 00:00 | BETAMETHASONE DIPROPIONATE | [facility] | | | | | + + + + | 2016-11-17 00:00 | CEPHALEXIN | [facility] | + + + + | 2016-11-17 00:00 | CEPHALEXIN | [facility] | + + + + | 2016-11-17 00:00 | CEPHALEXIN | [facility] | + + + + | 2016-11-17 00:00 | CEPHALEXIN | [facility] | + + + + | 2016-11-17 00:00 | CEPHALEXIN | [facility] | + + + + | 2016-11-17 00:00 | CEPHALEXIN | [facility] | + + + + | 2016-11-17 00:00 | CEPHALEXIN | [facility] | + + + + | 2016-11-20 00:00 | CEPHALEXIN | [facility] | + + + + | 2016-11-20 00:00 | CEPHALEXIN | [facility] | + + + + | 2016-11-20 00:00 | CEPHALEXIN | [facility] | + + + + | 2016-11-20 00:00 | CEPHALEXIN | [facility] | + + + + | 2016-11-20 00:00 | CEPHALEXIN | [facility] | + + + + | 2016-11-20 00:00 | CEPHALEXIN | [facility] | + + + + | 2016-11-20 00:00 | CEPHALEXIN | [facility] | + + + + | 2022-02-03 00:00 | CEPHALEXIN | [facility] | + + + + | 2022-02-05 00:00 | CEPHALEXIN | [facility] | + + + + | 2022-02-06 00:00 | CEPHALEXIN | [facility] | + + + + | 2022-02-06 00:00 | CEPHALEXIN | [facility] | + + + + | 2022-02-07 00:00 | CEPHALEXIN | [facility] | + + + + | 2022-02-10 00:00 | CEPHALEXIN | [facility] | + + + + | 2022-02-16 00:00 | CEPHALEXIN | [facility] | + + + + | 2022-03-14 00:00 | CEPHALEXIN | [facility] | + + + + | 2022-03-19 00:00 | CEPHALEXIN | [facility] | + + + + | 2022-03-22 00:00 | CEPHALEXIN | [facility] | + + + + | 2022-10-13 00:00 | CEPHALEXIN | [facility] | + + + + | 2022-10-31 00:00 | CEPHALEXIN | [facility] | + + + + | 2022-11-21 00:00 | CEPHALEXIN | [facility] | + + + + | 2022-11-22 00:00 | CEPHALEXIN | [facility] | + + + + | 2022-11-23 00:00 | CEPHALEXIN | [facility] | + + + + | 2022-12-16 00:00 | CEPHALEXIN | [facility] | + + + + | 2022-12-21 00:00 | CEPHALEXIN | [facility] | + + + + | 2023-01-01 00:00 | CEPHALEXIN | [facility] | + + + + | 2023-01-10 00:00 | CEPHALEXIN | [facility] | + + + + | 2023-01-27 00:00 | CEPHALEXIN | [facility] | + + + + | 2020-07-15 00:00 | Erythromycin Base | [facility] | + + + + | 2020-07-15 00:00 | Erythromycin Base | [facility] | + + + + | 2020-07-15 00:00 | Erythromycin Base | [facility] | + + + + | 2020-07-15 00:00 | Erythromycin Base | [facility] | + + + + | 2020-07-15 00:00 | Erythromycin Base | [facility] | + + + + | 2020-07-15 00:00 | Erythromycin Base | [facility] | + + + + | 2020-07-15 00:00 | Erythromycin Base | [facility] | + + + + | 2022-10-13 00:00 | ONDANSETRON | [facility] | + + + + | 2022-02-03 00:00 | Oseltamivir Phosphate | [facility] | + + + + | 2022-02-05 00:00 | Oseltamivir Phosphate | [facility] | + + + + | 2022-02-06 00:00 | Oseltamivir Phosphate | [facility] | + + + + | 2022-02-06 00:00 | Oseltamivir Phosphate | [facility] | + + + + | 2022-02-07 00:00 | Oseltamivir Phosphate | [facility] | + + + + | 2022-02-10 00:00 | Oseltamivir Phosphate | [facility] | + + + + | 2022-02-16 00:00 | Oseltamivir Phosphate | [facility] | + + + + | 2022-03-14 00:00 | Oseltamivir Phosphate | [facility] | + + + + | 2022-03-19 00:00 | Oseltamivir Phosphate | [facility] | + + + + | 2022-03-22 00:00 | Oseltamivir Phosphate | [facility] | + + + + | 2022-10-13 00:00 | Oseltamivir Phosphate | [facility] | + + + + | 2022-10-31 00:00 | Oseltamivir Phosphate | [facility] | + + + + | 2022-11-21 00:00 | Oseltamivir Phosphate | [facility] | + + + + | 2022-11-22 00:00 | Oseltamivir Phosphate | [facility] | + + + + | 2022-11-23 00:00 | Oseltamivir Phosphate | [facility] | + + + + | 2022-12-16 00:00 | Oseltamivir Phosphate | [facility] | + + + + | 2022-12-21 00:00 | Oseltamivir Phosphate | [facility] | + + + + | 2023-01-01 00:00 | Oseltamivir Phosphate | [facility] | + + + + | 2023-01-10 00:00 | Oseltamivir Phosphate | [facility] | + + + + | 2023-01-27 00:00 | Oseltamivir Phosphate | [facility] | + + + + | 2022-02-03 00:00 | PIMOZIDE | [facility] | + + + + | 2022-02-05 00:00 | PIMOZIDE | [facility] | + + + + | 2022-02-06 00:00 | PIMOZIDE | [facility] | + + + + | 2022-02-06 00:00 | PIMOZIDE | [facility] | + + + + | 2022-02-07 00:00 | PIMOZIDE | [facility] | + + + + | 2022-02-10 00:00 | PIMOZIDE | [facility] | + + + + | 2022-02-16 00:00 | PIMOZIDE | [facility] | + + + + | 2022-03-14 00:00 | PIMOZIDE | [facility] | + + + + | 2022-03-19 00:00 | PIMOZIDE | [facility] | + + + + | 2022-03-22 00:00 | PIMOZIDE | [facility] | + + + + | 2022-10-13 00:00 | PIMOZIDE | [facility] | + + + + | 2022-10-31 00:00 | PIMOZIDE | [facility] | + + + + | 2022-11-21 00:00 | PIMOZIDE | [facility] | + + + + | 2022-11-22 00:00 | PIMOZIDE | [facility] | + + + + | 2022-11-23 00:00 | PIMOZIDE | [facility] | + + + + | 2022-12-16 00:00 | PIMOZIDE | [facility] | + + + + | 2022-12-21 00:00 | PIMOZIDE | [facility] | + + + + | 2023-01-01 00:00 | PIMOZIDE | [facility] | + + + + | 2023-01-10 00:00 | PIMOZIDE | [facility] | + + + + | 2023-01-27 00:00 | PIMOZIDE | [facility] | + + + + | 2017-06-18 00:00 | predniSONE | [facility] | + + + + | 2017-06-18 00:00 | predniSONE | [facility] | + + + + | 2017-06-18 00:00 | predniSONE | [facility] | + + + + | 2017-06-18 00:00 | predniSONE | [facility] | + + + + | 2017-06-18 00:00 | predniSONE | [facility] | + + + + | 2017-06-18 00:00 | predniSONE | [facility] | + + + + | 2017-06-18 00:00 | predniSONE | [facility] | + + + + | 2020-01-23 00:00 | predniSONE | [facility] | + + + + | 2020-01-23 00:00 | predniSONE | [facility] | + + + + | 2020-01-23 00:00 | predniSONE | [facility] | + + + + | 2020-01-23 00:00 | predniSONE | [facility] | + + + + 2020-01-23 00:00 | predniSONE | [facility] | + + + + | 2020-01-23 00:00 | predniSONE | [facility] | + + + + | 2020-01-23 00:00 | predniSONE | [facility] | + + + + | 2022-03-22 00:00 | predniSONE | [facility] | + + + + | 2016-05-14 00:00 | HALOPERIDOL | [facility] | + + + + | 2016-05-14 00:00 | HALOPERIDOL | [facility] | + + + + | 2016-05-14 00:00 | HALOPERIDOL | [facility] | + + + + | 2016-05-14 00:00 | HALOPERIDOL | [facility] | + + + + | 2016-05-14 00:00 | HALOPERIDOL | [facility] | + + + + | 2016-05-14 00:00 | HALOPERIDOL | [facility] | + + + + | 2016-05-14 00:00 | HALOPERIDOL | [facility] | + + + + | 2018-02-21 00:00 | HALOPERIDOL | [facility] | + + + + | 2018-02-21 00:00 | HALOPERIDOL | [facility] | + + + + | 2018-02-21 00:00 | HALOPERIDOL | [facility] | + + + + | 2018-02-21 00:00 | HALOPERIDOL | [facility] | + + + + | 2018-02-21 00:00 | HALOPERIDOL | [facility] | + + + + | 2018-02-21 00:00 | HALOPERIDOL | [facility] | + + + + | 2018-02-21 00:00 | HALOPERIDOL | [facility] | + + + + | 2022-02-03 00:00 | HALOPERIDOL | [facility] | + + + + | 2022-02-05 00:00 | HALOPERIDOL | [facility] | + + + + | 2022-02-06 00:00 | HALOPERIDOL | [facility] | + + + + | 2022-02-06 00:00 | HALOPERIDOL | [facility] | + + + + | 2022-02-07 00:00 | HALOPERIDOL | [facility] | + + + + | 2022-02-10 00:00 | HALOPERIDOL | [facility] | + + + + | 2022-02-16 00:00 | HALOPERIDOL | [facility] | + + + + | 2022-03-14 00:00 | HALOPERIDOL | [facility] | + + + + | 2022-03-19 00:00 | HALOPERIDOL | [facility] | + + + + | 2022-03-22 00:00 | HALOPERIDOL | [facility] | + + + + | 2022-10-13 00:00 | HALOPERIDOL | [facility] | + + + + | 2022-10-31 00:00 | HALOPERIDOL | [facility] | + + + + | 2022-11-21 00:00 | HALOPERIDOL | [facility] | + + + + | 2022-11-22 00:00 | HALOPERIDOL | [facility] | + + + + | 2022-11-23 00:00 | HALOPERIDOL | [facility] | + + + + | 2022-12-16 00:00 | HALOPERIDOL | [facility] | + + + + | 2022-12-21 00:00 | HALOPERIDOL | [facility] | + + + + | 2023-01-01 00:00 | HALOPERIDOL | [facility] | + + + + | 2023-01-10 00:00 | HALOPERIDOL | [facility] | + + + + | 2023-01-27 00:00 | HALOPERIDOL | [facility] | + + + + | 2021-07-02 00:00 | LISINOPRIL | [facility] | + + + + | 2021-07-02 00:00 | LISINOPRIL | [facility] | + + + + | 2021-07-02 00:00 | LISINOPRIL | [facility] | + + + + | 2021-07-02 00:00 | LISINOPRIL | [facility] | + + + + | 2021-07-02 00:00 | LISINOPRIL | [facility] | + + + + | 2021-07-02 00:00 | LISINOPRIL | [facility] | + + + + | 2021-07-02 00:00 | LISINOPRIL | [facility] | + + + + | 2023-01-01 00:00 | LISINOPRIL | [facility] | + + + + | 2023-01-01 00:00 | LISINOPRIL | [facility] | + + + + | 2023-01-01 00:00 | LISINOPRIL | [facility] | + + + + | 2023-01-10 00:00 | LISINOPRIL | [facility] | + + + + | 2023-01-27 00:00 | LISINOPRIL | [facility] | + + + + | 2023-01-01 00:00 | HYDROCHLOROTHIAZIDE | [facility] | + + + + | 2023-01-01 00:00 | HYDROCHLOROTHIAZIDE | [facility] | + + + + | 2023-01-01 00:00 | HYDROCHLOROTHIAZIDE | [facility] | + + + + | 2023-01-10 00:00 | HYDROCHLOROTHIAZIDE | [facility] | + + + + | 2023-01-27 00:00 | HYDROCHLOROTHIAZIDE | [facility] | + + + + | 2022-11-22 00:00 | AMOXICILLIN/POTASSIUM CLAV | [facility] | | | | | + + + + | 2022-11-22 00:00 | AMOXICILLIN/POTASSIUM CLAV | [facility] | | | | | + + + + | 2017-09-28 00:00 | ALBUTEROL SULFATE | [facility] | + + + + | 2017-09-28 00:00 | ALBUTEROL SULFATE | [facility] | + + + + | 2017-09-28 00:00 | ALBUTEROL SULFATE | [facility] | + + + + | 2017-09-28 00:00 | ALBUTEROL SULFATE | [facility] | + + + + | 2017-09-28 00:00 | ALBUTEROL SULFATE | [facility] | + + + + | 2017-09-28 00:00 | ALBUTEROL SULFATE | [facility] | + + + + | 2017-09-28 00:00 | ALBUTEROL SULFATE | [facility] | + + + + | 2017-09-07 00:00 | CLINDAMYCIN HCL | [facility] | + + + + | 2017-09-07 00:00 | CLINDAMYCIN HCL | [facility] | + + + + | 2017-09-07 00:00 | CLINDAMYCIN HCL | [facility] | + + + + | 2017-09-07 00:00 | CLINDAMYCIN HCL | [facility] | + + + + | 2017-09-07 00:00 | CLINDAMYCIN HCL | [facility] | + + + + | 2017-09-07 00:00 | CLINDAMYCIN HCL | [facility] | + + + + | 2017-09-07 00:00 | CLINDAMYCIN HCL | [facility] | + + + + | 2020-06-16 00:00 | CLINDAMYCIN HCL | [facility] | + + + + | 2020-06-16 00:00 | CLINDAMYCIN HCL | [facility] | + + + + | 2020-06-16 00:00 | CLINDAMYCIN HCL | [facility] | + + + + | 2020-06-16 00:00 | CLINDAMYCIN HCL | [facility] | + + + + | 2020-06-16 00:00 | CLINDAMYCIN HCL | [facility] | + + + + | 2020-06-16 00:00 | CLINDAMYCIN HCL | [facility] | + + + + | 2020-06-16 00:00 | CLINDAMYCIN HCL | [facility] | + + + + | 2020-07-12 00:00 | CLINDAMYCIN HCL | [facility] | + + + + | 2020-07-12 00:00 | CLINDAMYCIN HCL | [facility] | + + + + | 2020-07-12 00:00 | CLINDAMYCIN HCL | [facility] | + + + + | 2020-07-12 00:00 | CLINDAMYCIN HCL | [facility] | + + + + 2020-07-12 00:00 | CLINDAMYCIN HCL | [facility] | + + + + | 2020-07-12 00:00 | CLINDAMYCIN HCL | [facility] | + + + + | 2020-07-12 00:00 | CLINDAMYCIN HCL | [facility] | + + + + | 2022-11-23 00:00 | CLINDAMYCIN HCL | [facility] | + + + + | 2022-11-23 00:00 | CLINDAMYCIN HCL | [facility] | + + + + | 2017-08-07 00:00 | METHYLPREDNISOLONE | [facility] | + + + + | 2017-08-07 00:00 | METHYLPREDNISOLONE | [facility] | + + + + | 2017-08-07 00:00 | METHYLPREDNISOLONE | [facility] | + + + + | 2017-08-07 00:00 | METHYLPREDNISOLONE | [facility] | + + + + | 2017-08-07 00:00 | METHYLPREDNISOLONE | [facility] | + + + + | 2017-08-07 00:00 | METHYLPREDNISOLONE | [facility] | + + + + | 2017-08-07 00:00 | METHYLPREDNISOLONE | [facility] | + + + + | 2021-08-27 00:00 | Chlorhexidine Gluconate | [facility] | + + + + | 2021-08-27 00:00 | Chlorhexidine Gluconate | [facility] | + + + + | 2021-08-27 00:00 | Chlorhexidine Gluconate | [facility] | + + + + | 2021-08-27 00:00 | Chlorhexidine Gluconate | [facility] | + + + + | 2021-08-27 00:00 | Chlorhexidine Gluconate | [facility] | + + + + | 2021-08-27 00:00 | Chlorhexidine Gluconate | [facility] | + + + + | 2021-08-27 00:00 | Chlorhexidine Gluconate | [facility] | + + + + | 2014-02-25 00:00 | | [facility] | | | SULFAMETHOXAZOLE/TRIMETHOPR | | | | IM DS | | + + + + | 2014-02-25 00:00 | | [facility] | | | SULFAMETHOXAZOLE/TRIMETHOPR | | | | IM DS | | + + + + | 2014-02-25 00:00 | | [facility] | | | SULFAMETHOXAZOLE/TRIMETHOPR | | | | IM DS | | + + + + | 2014-02-25 00:00 | | [facility] | | | SULFAMETHOXAZOLE/TRIMETHOPR | | | | IM DS | | + + + + | 2014-02-25 00:00 | | [facility] | | | SULFAMETHOXAZOLE/TRIMETHOPR | | | | IM DS | | + + + + | 2014-02-25 00:00 | | [facility] | | | SULFAMETHOXAZOLE/TRIMETHOPR | | | | IM DS | | + + + + | 2014-02-25 00:00 | | [facility] | | | SULFAMETHOXAZOLE/TRIMETHOPR | | | | IM DS | | + + + + | 2017-10-08 00:00 | | [facility] | | | SULFAMETHOXAZOLE/TRIMETHOPR | | | | IM DS | | + + + + | 2017-10-08 00:00 | | [facility] | | | SULFAMETHOXAZOLE/TRIMETHOPR | | | | IM DS | | + + + + | 2017-10-08 00:00 | | [facility] | | | SULFAMETHOXAZOLE/TRIMETHOPR | | | | IM DS | | + + + + | 2017-10-08 00:00 | | [facility] | | | SULFAMETHOXAZOLE/TRIMETHOPR | | | | IM DS | | + + + + | 2017-10-08 00:00 | | [facility] | | | SULFAMETHOXAZOLE/TRIMETHOPR | | | | IM DS | | + + + + | 2017-10-08 00:00 | | [facility] | | | SULFAMETHOXAZOLE/TRIMETHOPR | | | | IM DS | | + + + + | 2017-10-08 00:00 | | [facility] | | | SULFAMETHOXAZOLE/TRIMETHOPR | | | | IM DS | | + + + + | 2022-01-31 00:00 | | [facility] | | | SULFAMETHOXAZOLE/TRIMETHOPR | | | | IM DS | | + + + + | 2017-06-18 00:00 | ALBUTEROL SULFATE | [facility] | + + + + | 2017-06-18 00:00 | ALBUTEROL SULFATE | [facility] | + + + + | 2017-06-18 00:00 | ALBUTEROL SULFATE | [facility] [facility] | + + + + | 2017-06-18 00:00 | ALBUTEROL SULFATE | [facility] | + + + + | 2017-06-18 00:00 | ALBUTEROL SULFATE | [facility] | + + + + | 2017-06-18 00:00 | ALBUTEROL SULFATE | [facility] | + + + + | 2017-06-18 00:00 | ALBUTEROL SULFATE | [facility] | + + + + | 2017-08-07 00:00 | ALBUTEROL SULFATE | [facility] | + + + + | 2017-08-07 00:00 | ALBUTEROL SULFATE | [facility] | + + + + | 2017-08-07 00:00 | ALBUTEROL SULFATE | [facility] | + + + + | 2017-08-07 00:00 | ALBUTEROL SULFATE | [facility] | + + + + | 2017-08-07 00:00 | ALBUTEROL SULFATE | [facility] | + + + + | 2017-08-07 00:00 | ALBUTEROL SULFATE | [facility] | + + + + | 2017-08-07 00:00 | ALBUTEROL SULFATE | [facility] | + + + + | 2022-02-03 00:00 | ONDANSETRON | [facility] | + + + + | 2022-02-05 00:00 | ONDANSETRON | [facility] | + + + + | 2022-02-06 00:00 | ONDANSETRON | [facility] | + + + + | 2022-02-06 00:00 | ONDANSETRON | [facility] | + + + + | 2022-02-07 00:00 | ONDANSETRON | [facility] | + + + + | 2022-02-10 00:00 | ONDANSETRON | [facility] | + + + + | 2022-02-16 00:00 | ONDANSETRON | [facility] | + + + + | 2022-03-14 00:00 | ONDANSETRON | [facility] | + + + + | 2022-03-19 00:00 | ONDANSETRON | [facility] | + + + + | 2022-03-22 00:00 | ONDANSETRON | [facility] | + + + + | 2022-10-13 00:00 | ONDANSETRON | [facility] | + + + + | 2022-10-31 00:00 | ONDANSETRON | [facility] | + + + + | 2022-11-21 00:00 | ONDANSETRON | [facility] | + + + + | 2022-11-22 00:00 | ONDANSETRON | [facility] | + + + + | 2022-11-23 00:00 | ONDANSETRON | [facility] | + + + + | 2022-12-16 00:00 | ONDANSETRON | [facility] | + + + + | 2022-12-21 00:00 | ONDANSETRON | [facility] | + + + + | 2023-01-01 00:00 | ONDANSETRON | [facility] | + + + + | 2023-01-10 00:00 | ONDANSETRON | [facility] | + + + + | 2023-01-27 00:00 | ONDANSETRON | [facility] | + + + + | 2020-12-15 00:00 | MECLIZINE HCL | [facility] | + + + + | 2020-12-15 00:00 | MECLIZINE HCL | [facility] | + + + + | 2020-12-15 00:00 | MECLIZINE HCL | [facility] | + + + + | 2020-12-15 00:00 | MECLIZINE HCL | [facility] | + + + + | 2020-12-15 00:00 | MECLIZINE HCL | [facility] | + + + + | 2020-12-15 00:00 | MECLIZINE HCL | [facility] | + + + + | 2020-12-15 00:00 | MECLIZINE HCL | [facility] | + + + + Problems + + + + | date | description | facility | + + + + | 2016-05-14 00:00 | Encounter for medication | [facility] | | | refill | | + + + + | 2016-05-14 00:00 | Encounter for medication | [facility] | | | refill | | + + + + | 2016-05-14 00:00 | Encounter for medication | [facility] | | | refill | | + + + + | 2016-05-14 00:00 | Encounter for medication | [facility] | | | refill | | + + + + | 2016-05-14 00:00 | Encounter for medication | [facility] | | | refill | | + + + + | 2016-05-14 00:00 | Encounter for medication | [facility] | | | refill | | + + + + | 2016-05-14 00:00 | Encounter for medication | [facility] | | | refill | | + + + + | 2016-08-19 00:00 | Encounter for medical | [facility] | | | screening examination | | + + + + | 2016-08-19 00:00 | Encounter for medical | [facility] | | | screening examination | | + + + + | 2016-08-19 00:00 | Encounter for medical | [facility] | | | screening examination | | + + + + | 2016-08-19 00:00 | Encounter for medical | [facility] | | | screening examination | | + + + + | 2016-08-19 00:00 | Encounter for medical | [facility] | | | screening examination | | + + + + | 2016-08-19 00:00 | Encounter for medical | [facility] | | | screening examination | | + + + + | 2016-08-19 00:00 | Encounter for medical | [facility] | | | screening examination | | + + + + | 2016-10-10 00:00 | Constipation | [facility] | + + + + | 2016-10-10 00:00 | Constipation | [facility] | + + + + | 2016-10-10 00:00 | Constipation | [facility] | + + + + | 2016-10-10 00:00 | Constipation | [facility] | + + + + | 2016-10-10 00:00 | Constipation | [facility] | + + + + | 2016-10-10 00:00 | Constipation | [facility] | + + + + | 2016-10-10 00:00 | Constipation | [facility] | + + + + | 2016-10-10 00:00 | Nonspecific abdominal pain | [facility] | | | | | + + + + | 2016-10-10 00:00 | Nonspecific abdominal pain | [facility] | | | | | + + + + | 2016-10-10 00:00 | Nonspecific abdominal pain | [facility] | | | | | + + + + | 2016-10-10 00:00 | Nonspecific abdominal pain | [facility] | | | | | + + + + | 2016-10-10 00:00 | Nonspecific abdominal pain | [facility] | | | | | + + + + | 2016-10-10 00:00 | Nonspecific abdominal pain | [facility] | | | | | + + + + | 2016-10-10 00:00 | Nonspecific abdominal pain | [facility] | | | | | + + + + | 2016-10-31 00:00 | Methamphetamine abuse | [facility] | + + + + | 2016-10-31 00:00 | Methamphetamine abuse | [facility] | + + + + | 2016-10-31 00:00 | Methamphetamine abuse | [facility] | + + + + | 2016-10-31 00:00 | Methamphetamine abuse | [facility] | + + + + | 2016-10-31 00:00 | Methamphetamine abuse | [facility] | + + + + | 2016-10-31 00:00 | Methamphetamine abuse | [facility] | + + + + | 2016-10-31 00:00 | Methamphetamine abuse | [facility] | + + + + | 2016-10-31 00:00 | Chronic abdominal pain | [facility] | + + + + | 2016-10-31 00:00 | Chronic abdominal pain | [facility] | + + + + | 2016-10-31 00:00 | Chronic abdominal pain | [facility] | + + + + | 2016-10-31 00:00 | Chronic abdominal pain | [facility] | + + + + | 2016-10-31 00:00 | Chronic abdominal pain | [facility] | + + + + | 2016-10-31 00:00 | Chronic abdominal pain | [facility] | + + + + | 2016-10-31 00:00 | Chronic abdominal pain | [facility] | + + + + | 2016-10-31 00:00 | Weight loss | [facility] | + + + + | 2016-10-31 00:00 | Weight loss | [facility] | + + + + | 2016-10-31 00:00 | Weight loss | [facility] | + + + + | 2016-10-31 00:00 | Weight loss | [facility] | + + + + | 2016-10-31 00:00 | Weight loss | [facility] | + + + + | 2016-10-31 00:00 | Weight loss | [facility] | + + + + | 2016-10-31 00:00 | Weight loss | [facility] | + + + + | 2016-11-17 00:00 | Cellulitis | [facility] | + + + + | 2016-11-17 00:00 | Cellulitis | [facility] | + + + + | 2016-11-17 00:00 | Cellulitis | [facility] | + + + + | 2016-11-17 00:00 | Cellulitis | [facility] | + + + + | 2016-11-17 00:00 | Cellulitis | [facility] | + + + + | 2016-11-17 00:00 | Cellulitis | [facility] | + + + + | 2016-11-17 00:00 | Cellulitis | [facility] | + + + + | 2017-01-04 00:00 | 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 | | + + + + | 2017-01-04 00:00 | 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 | | + + + + | 2017-01-04 00:00 | 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 | | + + + + | 2017-01-04 00:00 | 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 | | + + + + | 2017-01-04 00:00 | 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 | | + + + + | 2017-01-04 00:00 | 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 | | + + + + | 2017-01-04 00:00 | 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 | | + + + + | 2017-06-09 00:00 | Patient left without being | [facility] | | | seen | | + + + + | 2017-06-09 00:00 | Patient left without being | [facility] | | | seen | | + + + + | 2017-06-09 00:00 | Patient left without being | [facility] | | | seen | | + + + + | 2017-06-09 00:00 | Patient left without being | [facility] | | | seen | | + + + + | 2017-06-09 00:00 | Patient left without being | [facility] | | | seen | | + + + + | 2017-06-09 00:00 | Patient left without being | [facility] | | | seen | | + + + + | 2017-06-09 00:00 | Patient left without being | [facility] | | | seen | | + + + + | 2017-06-18 00:00 | Obstructive chronic | [facility] | | | bronchitis with | | | | exacerbation | | + + + + | 2017-06-18 00:00 | Obstructive chronic | [facility] | | | bronchitis with | | | | exacerbation | | + + + + | 2017-06-18 00:00 | Obstructive chronic | [facility] | | | bronchitis with | | | | exacerbation | | + + + + | 2017-06-18 00:00 | Obstructive chronic | [facility] | | | bronchitis with | | | | exacerbation | | + + + + | 2017-06-18 00:00 | Obstructive chronic | [facility] | | | bronchitis with | | | | exacerbation | | + + + + | 2017-06-18 00:00 | Obstructive chronic | [facility] | | | bronchitis with | | | | exacerbation | | + + + + | 2017-06-18 00:00 | Obstructive chronic | [facility] | | | bronchitis with | | | | exacerbation | | + + + + | 2017-06-18 00:00 | Dyspnea on exertion | [facility] | + + + + | 2017-06-18 00:00 | Dyspnea on exertion | [facility] | + + + + | 2017-06-18 00:00 | Dyspnea on exertion | [facility] | + + + + | 2017-06-18 00:00 | Dyspnea on exertion | [facility] | + + + + | 2017-06-18 00:00 | Dyspnea on exertion | [facility] | + + + + | 2017-06-18 00:00 | Dyspnea on exertion | [facility] | + + + + | 2017-06-18 00:00 | Dyspnea on exertion | [facility] | + + + + | 2017-08-07 00:00 | Bronchitis | [facility] | + + + + | 2017-08-07 00:00 | Bronchitis | [facility] | + + + + | 2017-08-07 00:00 | Bronchitis | [facility] | + + + + | 2017-08-07 00:00 | Bronchitis | [facility] | + + + + | 2017-08-07 00:00 | Bronchitis | [facility] | + + + + | 2017-08-07 00:00 | Bronchitis | [facility] | + + + + | 2017-08-07 00:00 | Bronchitis | [facility] | + + + + | 2017-09-07 00:00 | Paronychia of finger of | [facility] | | | right hand | | + + + + | 2017-09-07 00:00 | Paronychia of finger of [facility] | | | right hand | | + + + + | 2017-09-07 00:00 | Paronychia of finger of [facility] | | | right hand | | + + + + | 2017-09-07 00:00 | Paronychia of finger of [facility] | | | right hand | | + + + + | 2017-09-07 00:00 | Paronychia of finger of [facility] | | | right hand | | + + + + | 2017-09-07 00:00 | Paronychia of finger of | [facility] | | | right hand | | + + + + | 2017-09-07 00:00 | Paronychia of finger of | [facility] | | | right hand | | + + + + | 2017-09-28 00:00 | Upper respiratory tract | [facility] | | | infection | | + + + + | 2017-09-28 00:00 | Upper respiratory tract | [facility] | | | infection | | + + + + | 2017-09-28 00:00 | Upper respiratory tract | [facility] | | | infection | | + + + + | 2017-09-28 00:00 | Upper respiratory tract | [facility] | | | infection | | + + + + | 2017-09-28 00:00 | Upper respiratory tract | [facility] | | | infection | | + + + + | 2017-09-28 00:00 | Upper respiratory tract | [facility] | | | infection | | + + + + | 2017-09-28 00:00 | Upper respiratory tract | [facility] | | | infection | | + + + + | 2019-01-27 00:00 | Cellulitis of lower | [facility] | | | extremity | | + + + + | 2019-01-27 00:00 | Cellulitis of lower | [facility] | | | extremity | | + + + + | 2019-01-27 00:00 | Cellulitis of lower | [facility] | | | extremity | | + + + + | 2019-01-27 00:00 | Cellulitis of lower | [facility] | | | extremity | | + + + + | 2019-01-27 00:00 | Cellulitis of lower | [facility] | | | extremity | | + + + + | 2019-01-27 00:00 | Cellulitis of lower | [facility] | | | extremity | | + + + + | 2019-01-27 00:00 | Cellulitis of lower | [facility] | | | extremity | | + + + + | 2020-01-23 00:00 | Gout | [facility] | + + + + | 2020-01-23 00:00 | Gout | [facility] | + + + + | 2020-01-23 00:00 | Gout | [facility] | + + + + | 2020-01-23 00:00 | Gout | [facility] | + + + + | 2020-01-23 00:00 | Gout | [facility] | + + + + | 2020-01-23 00:00 | Gout | [facility] | + + + + | 2020-01-23 00:00 | Gout | [facility] | + + + + 2020-05-09 00:00 | Rectal fissure | [facility] | + + + + | 2020-05-09 00:00 | Rectal fissure | [facility] | + + + + | 2020-05-09 00:00 | Rectal fissure | [facility] | + + + + | 2020-05-09 00:00 | Rectal fissure | [facility] | + + + + 2020-05-09 00:00 | Rectal fissure | [facility] | + + + + 2020-05-09 00:00 | Rectal fissure | [facility] | + + + + | 2020-05-09 00:00 | Rectal fissure | [facility] | + + + + | 2020-07-15 00:00 | Cannabis abuse | [facility] | + + + + | 2020-07-15 00:00 | Cannabis abuse | [facility] | + + + + 2020-07-15 00:00 | Cannabis abuse | [facility] | + + + + 2020-07-15 00:00 | Cannabis abuse | [facility] | + + + + | 2020-07-15 00:00 | Cannabis abuse | [facility] | + + + + | 2020-07-15 00:00 | Cannabis abuse | [facility] | + + + + | 2020-07-15 00:00 | Cannabis abuse | [facility] | + + + + 2020-07-15 00:00 | Acute kidney injury | [facility] | + + + + | 2020-07-15 00:00 | Acute kidney injury | [facility] | + + + + | 2020-07-15 00:00 | Acute kidney injury | [facility] | + + + + | 2020-07-15 00:00 | Acute kidney injury | [facility] | + + + + | 2020-07-15 00:00 | Acute kidney injury | [facility] | + + + + 2020-07-15 00:00 | Acute kidney injury | [facility] | + + + + 2020-07-15 00:00 | Acute kidney injury | [facility] | + + + + | 2020-07-15 00:00 | Elevated transaminase | [facility] | | | measurement | | + + + + | 2020-07-15 00:00 | Elevated transaminase | [facility] | | | measurement | | + + + + | 2020-07-15 00:00 | Elevated transaminase | [facility] | | | measurement | | + + + + | 2020-07-15 00:00 | Elevated transaminase | [facility] | | | measurement | | + + + + | 2020-07-15 00:00 | Elevated transaminase | [facility] | | | measurement | | + + + + | 2020-07-15 00:00 | Elevated transaminase | [facility] | | | measurement | | + + + + | 2020-07-15 00:00 | Elevated transaminase | [facility] | | | measurement | | + + + + | 2020-07-15 00:00 | Abrasion of left cornea | [facility] | + + + + | 2020-07-15 00:00 | Abrasion of left cornea | [facility] | + + + + | 2020-07-15 00:00 | Abrasion of left cornea | [facility] | + + + + | 2020-07-15 00:00 | Abrasion of left cornea | [facility] | + + + + | 2020-07-15 00:00 | Abrasion of left cornea | [facility] | + + + + | 2020-07-15 00:00 | Abrasion of left cornea | [facility] | + + + + 2020-07-15 00:00 | Abrasion of left cornea | [facility] | + + + + | 2020-09-17 00:00 | 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[facility] | + + + + | 2020-09-17 00:00 | 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[facility] | + + + + | 2020-09-17 00:00 | 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[facility] | + + + + | 2020-09-17 00:00 | 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[facility] | + + + + | 2020-09-17 00:00 | 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[facility] | + + + + | 2020-09-17 00:00 | 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[facility] | + + + + | 2020-09-17 00:00 | 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[facility] | + + + + | 2020-11-13 00:00 | Drug use | [facility] | + + + + | 2020-11-13 00:00 | Drug use | [facility] | + + + + | 2020-11-13 00:00 | Drug use | [facility] | + + + + | 2020-11-13 00:00 | Drug use | [facility] | + + + + | 2020-11-13 00:00 | Drug use | [facility] | + + + + | 2020-11-13 00:00 | Drug use | [facility] | + + + + | 2020-11-13 00:00 | Drug use | [facility] | + + + + | 2020-12-15 00:00 | Vertigo | [facility] | + + + + | 2020-12-15 00:00 | Vertigo | [facility] | + + + + | 2020-12-15 00:00 | Vertigo | [facility] | + + + + | 2020-12-15 00:00 | Vertigo | [facility] | + + + + | 2020-12-15 00:00 | Vertigo | [facility] | + + + + | 2020-12-15 00:00 | Vertigo | [facility] | + + + + | 2020-12-15 00:00 | Vertigo | [facility] | + + + + | 2021-02-08 00:00 | Eczema of both hands | [facility] | + + + + | 2021-02-08 00:00 | Eczema of both hands | [facility] | + + + + | 2021-02-08 00:00 | Eczema of both hands | [facility] | + + + + | 2021-02-08 00:00 | Eczema of both hands | [facility] | + + + + | 2021-02-08 00:00 | Eczema of both hands | [facility] | + + + + | 2021-02-08 00:00 | Eczema of both hands | [facility] | + + + + | 2021-02-08 00:00 | Eczema of both hands | [facility] | + + + + | 2021-04-03 00:00 | Dehydration | [facility] | + + + + | 2021-04-03 00:00 | Dehydration | [facility] | + + + + | 2021-04-03 00:00 | Dehydration | [facility] | + + + + | 2021-04-03 00:00 | Dehydration | [facility] | + + + + | 2021-04-03 00:00 | Dehydration | [facility] | + + + + | 2021-04-03 00:00 | Dehydration | [facility] | + + + + | 2021-04-03 00:00 | Dehydration | [facility] | + + + + | 2021-04-03 00:00 | Enteritis | [facility] | + + + + | 2021-04-03 00:00 | Enteritis | [facility] | + + + + | 2021-04-03 00:00 | Enteritis | [facility] | + + + + | 2021-04-03 00:00 | Enteritis | [facility] | + + + + | 2021-04-03 00:00 | Enteritis | [facility] | + + + + | 2021-04-03 00:00 | Enteritis | [facility] | + + + + | 2021-04-03 00:00 | Enteritis | [facility] | + + + + | 2021 00:00 | Parasite not detected | [facility] | + + + + | 2021 00:00 | Parasite not detected | [facility] | + + + + | 2021 00:00 | Parasite not detected | [facility] | + + + + | 2021 00:00 | Parasite not detected | [facility] | + + + + | 2021 00:00 | Parasite not detected | [facility] | + + + + | 2021 00:00 | Parasite not detected | [facility] | + + + + | 2021 00:00 | Parasite not detected | [facility] | + + + + | 2021 00:00 | Pain of hand | [facility] | + + + + | 2021 00:00 | Pain of hand | [facility] | + + + + | 2021 00:00 | Pain of hand | [facility] | + + + + | 2021 00:00 | Pain of hand | [facility] | + + + + | 2021 00:00 | Pain of hand | [facility] | + + + + | 2021 00:00 | Pain of hand | [facility] | + + + + | 2021 00:00 | Pain of hand | [facility] | + + + + | 2021-05-18 00:00 | Viral infection | [facility] | + + + + | 2021-05-18 00:00 | Viral infection | [facility] | + + + + | 2021-05-18 00:00 | Viral infection | [facility] | + + + + | 2021-05-18 00:00 | Viral infection | [facility] | + + + + | 2021-05-18 00:00 | Viral infection | [facility] | + + + + | 2021-05-18 00:00 | Viral infection | [facility] | + + + + | 2021-05-18 00:00 | Viral infection | [facility] | + + + + | 2021-07-02 00:00 | Acute bronchitis | [facility] | + + + + | 2021-07-02 00:00 | Acute bronchitis | [facility] | + + + + | 2021-07-02 00:00 | Acute bronchitis | [facility] | + + + + | 2021-07-02 00:00 | Acute bronchitis | [facility] | + + + + | 2021-07-02 00:00 | Acute bronchitis | [facility] | + + + + | 2021-07-02 00:00 | Acute bronchitis | [facility] | + + + + | 2021-07-02 00:00 | Acute bronchitis | [facility] | + + + + | 2021-07-13 00:00 | Dizziness | [facility] | + + + + | 2021-07-13 00:00 | Dizziness | [facility] | + + + + | 2021-07-13 00:00 | Dizziness | [facility] | + + + + | 2021-07-13 00:00 | Dizziness | [facility] | + + + + | 2021-07-13 00:00 | Dizziness | [facility] | + + + + | 2021-07-13 00:00 | Dizziness | [facility] | + + + + | 2021-07-13 00:00 | Dizziness | [facility] | + + + + | 2021-08-27 00:00 | Schizoaffective disorder | [facility] | + + + + | 2021-08-27 00:00 | Schizoaffective disorder | [facility] | + + + + | 2021-08-27 00:00 | Schizoaffective disorder | [facility] | + + + + | 2021-08-27 00:00 | Schizoaffective disorder | [facility] [facility] + + | 2021-08-27 00:00 | Schizoaffective disorder | [facility] | + + + + | 2021-08-27 00:00 | Schizoaffective disorder | [facility] | + + + + | 2021-08-27 00:00 | Schizoaffective disorder | [facility] | + + + + | 2021-08-27 00:00 | Stomatitis | [facility] | + + + + | 2021-08-27 00:00 | Stomatitis | [facility] | + + + + | 2021-08-27 00:00 | Stomatitis | [facility] | + + + + | 2021-08-27 00:00 | Stomatitis | [facility] | + + + + | 2021-08-27 00:00 | Stomatitis | [facility] | + + + + | 2021-08-27 00:00 | Stomatitis | [facility] | + + + + | 2021-08-27 00:00 | Stomatitis | [facility] | + + + + | 2021-09-22 00:00 | Vomiting | [facility] | + + + + | 2021-09-22 00:00 | Vomiting | [facility] | + + + + | 2021-09-22 00:00 | Vomiting | [facility] | + + + + | 2021-09-22 00:00 | Vomiting | [facility] | + + + + | 2021-09-22 00:00 | Vomiting | [facility] | + + + + | 2021-09-22 00:00 | Vomiting | [facility] | + + + + | 2021-09-22 00:00 | Vomiting | [facility] | + + + + | 2021-11-12 00:00 | Pneumonia | [facility] | + + + + | 2021-11-12 00:00 | Pneumonia | [facility] | + + + + | 2021-11-12 00:00 | Pneumonia | [facility] | + + + + | 2021-11-12 00:00 | Pneumonia | [facility] | + + + + | 2021-11-12 00:00 | Pneumonia | [facility] | + + + + | 2021-11-12 00:00 | Pneumonia | [facility] | + + + + | 2021-11-12 00:00 | Pneumonia | [facility] | + + + + | 2022-01-03 00:00 | Dental abscess | [facility] | + + + + | 2022-01-03 00:00 | Dental abscess | [facility] | + + + + | 2022-01-03 00:00 | Dental abscess | [facility] | + + + + | 2022-01-03 00:00 | Dental abscess | [facility] | + + + + | 2022-01-03 00:00 | Dental abscess | [facility] | + + + + | 2022-01-03 00:00 | Dental abscess | [facility] | + + + + | 2022-01-03 00:00 | Dental abscess | [facility] | + + + + | 2022-01-14 00:00 | Parasitic infestation | [facility] | + + + + | 2022-01-14 00:00 | Parasitic infestation | [facility] | + + + + | 2022-01-14 00:00 | Parasitic infestation | [facility] | + + + + | 2022-01-14 00:00 | Parasitic infestation | [facility] | + + + + | 2022-01-14 00:00 | Parasitic infestation | [facility] | + + + + | 2022-01-14 00:00 | Parasitic infestation | [facility] | + + + + | 2022-01-14 00:00 | Parasitic infestation | [facility] | + + + + | 2022-01-23 00:00 | Cellulitis of finger of | [facility] | | | left hand | | + + + + | 2022-01-23 00:00 | Cellulitis of finger of | [facility] | | | left hand | | + + + + | 2022-01-23 00:00 | Cellulitis of finger of | [facility] | | | left hand | | + + + + | 2022-01-23 00:00 | Cellulitis of finger of | [facility] | | | left hand | | + + + + | 2022-01-23 00:00 | Cellulitis of finger of | [facility] | | | left hand | | + + + + | 2022-01-23 00:00 | Cellulitis of finger of | [facility] | | | left hand | | + + + + | 2022-01-23 00:00 | Cellulitis of finger of [facility] | | | left hand | | + + + + | 2022-01-25 00:00 | Swelling | [facility] | + + + + | 2022-01-25 00:00 | Swelling | [facility] | + + + + | 2022-01-25 00:00 | Swelling | [facility] | + + + + | 2022-01-25 00:00 | Swelling | [facility] | + + + + | 2022-01-25 00:00 | Swelling | [facility] | + + + + | 2022-01-25 00:00 | Swelling | [facility] | + + + + | 2022-01-25 00:00 | Swelling | [facility] | + + + + | 2022-01-28 00:00 | Cellulitis of left ring | [facility] | | | finger | | + + + + | 2022-01-28 00:00 | Cellulitis of left ring | [facility] | | | finger | | + + + + | 2022-01-28 00:00 | Cellulitis of left ring | [facility] | | | finger | | + + + + | 2022-01-28 00:00 | Cellulitis of left ring | [facility] | | | finger | | + + + + | 2022-01-28 00:00 | Cellulitis of left ring | [facility] | | | finger | | + + + + | 2022-01-28 00:00 | Cellulitis of left ring | [facility] | | | finger | | + + + + | 2022-01-28 00:00 | Cellulitis of left ring | [facility] | | | finger | | + + + + | 2022-02-10 00:00 | Injury of extremity | [facility] | + + + + | 2022-02-10 00:00 | Injury of extremity | [facility] | + + + + | 2022-02-10 00:00 | Injury of extremity | [facility] | + + + + | 2022-02-10 00:00 | Injury of extremity | [facility] | + + + + | 2022-02-10 00:00 | Injury of extremity | [facility] | + + + + | 2022-02-10 00:00 | Injury of extremity | [facility] | + + + + | 2022-03-10 00:00 | Cellulitis of thumb | [facility] | + + + + | 2022-03-10 00:00 | Cellulitis of thumb | [facility] | + + + + | 2022-03-10 00:00 | Cellulitis of thumb | [facility] | + + + + | 2022-03-10 00:00 | Cellulitis of thumb | [facility] | + + + + | 2022-03-10 00:00 | Cellulitis of thumb | [facility] | + + + + | 2022-03-10 00:00 | Cellulitis of thumb | [facility] | + + + + | 2022-03-10 00:00 | Formication | [facility] | + + + + | 2022-03-10 00:00 | Formication | [facility] | + + + + | 2022-03-10 00:00 | Formication | [facility] | + + + + | 2022-03-10 00:00 | Formication | [facility] | + + + + | 2022-03-10 00:00 | Formication | [facility] | + + + + | 2022-03-10 00:00 | Formication | [facility] | + + + + | 2022-03-14 00:00 | 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[facility] | + + + + | 2022-03-14 00:00 | 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[facility] | + + + + | 2022-03-14 00:00 | 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[facility] | + + + + | 2022-03-14 00:00 | 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[facility] | + + + + | 2022-03-14 00:00 | 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[facility] | + + + + | 2022-03-22 00:00 | Swelling of hand | [facility] | + + + + | 2022-03-22 00:00 | Swelling of hand | [facility] | + + + + | 2022-03-22 00:00 | Swelling of hand | [facility] | + + + + | 2022-03-22 00:00 | Swelling of hand | [facility] | + + + + | 2022-03-22 00:00 | Swelling of hand | [facility] | + + + + | 2022-11-23 00:00 | Dental caries | [facility] | + + + + | 2022-11-23 00:00 | Dental caries | [facility] | + + + + | 2022-11-23 00:00 | Dental caries | [facility] | + + + + | 2022-11-23 00:00 | Dental caries | [facility] | + + + + | 2022-11-23 00:00 | Dental caries | [facility] | + + + + | 2022-11-23 00:00 | Abscess of face | [facility] | + + + + | 2022-11-23 00:00 | Abscess of face | [facility] | + + + + | 2022-11-23 00:00 | Abscess of face | [facility] | + + + + | 2022-11-23 00:00 | Abscess of face | [facility] | + + + + | 2022-11-23 00:00 | Abscess of face | [facility] | + + + + | 2022-12-16 00:00 | Dizziness of unknown | [facility] | | | etiology | | + + + + | 2022-12-16 00:00 | Dizziness of unknown | [facility] | | | etiology | | + + + + | 2022-12-16 00:00 | Dizziness of unknown | [facility] | | | etiology | | + + + + | 2022-12-16 00:00 | Dizziness of unknown | [facility] | | | etiology | | + + + + | 2022-12-16 00:00 | Dizziness of unknown | [facility] | | | etiology | [...] + + | 2022-12-16 20:45 | 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) | [facility] | | | DRUG [...] + + | 2022-12-21 12:34 | OTHER SENIOR CARE (CURRENT) | [facility] | | | DRUG THERAPY | | + + + + | 2023-01-01 00:00 | Infestation by Sarcoptes | [facility] | | | scabiei | | + + + + | 2023-01-01 00:00 | Infestation by Sarcoptes | [facility] | | | scabiei | | + + + + | 2023-01-01 00:00 | Infestation by Sarcoptes | [facility] | | | scabiei | | + + + + | 2023-01-01 00:00 | Hypothyroidism | [facility] | + + + + | 2023-01-01 00:00 | Hypothyroidism | [facility] | + + + + | 2023-01-01 00:00 | Hypothyroidism | [facility] | + + + + | 2023-01-01 00:00 | Hypertension | [facility] | + + + + | 2023-01-01 00:00 | Hypertension | [facility] | + + + + | 2023-01-01 00:00 | Hypertension | [facility] | + + + + [...] + + | 2023-01-10 07:21 | 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
--- OUTSIDE RECORDS SUMMARY | 2023-01-29 00:30 | XMS ---
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 11/21/2022 13:52 - Patient eloped before treatment completed. - Patient with suicidal and/or homicidal ideations eloped. - Patient eloped with IV in place. Details: Patient LWBS. Elopement at [facility] 10/31/2022 17:09 - Patient eloped before treatment completed. - Patient with suicidal and/or homicidal ideations eloped. - Patient eloped with IV in place. Details: Patient LWBS Elopement at [facility] 02/10/2022 06:38 - Patient eloped before treatment completed. - Patient with suicidal and/or homicidal ideations eloped. - Patient eloped with IV in place. 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 Care History Medical/Surgical 03/11/2022 [facility] ALERT KATHLEEN HAS BEEN TRYING TO CONTACT PATIENT. IF PATIENT IS SEEN IN THE ED PLEASE CONTACT KATHLEEN CRISIS LINE [phone]. KATHLEEN HAS A PHONE TO PROVIDE TO THE PATIENT. PLEASE LET PATIENT KNOW. KATHLEEN IS TRYING TO HELP WITH HOUSING RESOURCES AND WOULD LIKE TO FURTHER ASSIST. 09/02/2021 [facility] - MULTIPLE ATTEMPTS TO CONTACT PATIENT - - PATIENT HAS DECLINED COMMUNITY COUNSELING [employer] HELP- MULTIPLE ATTEMPTS HAVE BEEN MADE AND PATIENT DECLINES EVERY TIME. - PATIENT HAS DECLINED HELP FROM KATHLEEN - PATIENT IS ABLE TO GO TO THE DAY CENTER THAT KATHLEEN PROVIDES. 11/27/2020 [facility] - KATHLEEN HELPED PATIENT WITH TREATMENT PLACEMENT AT [facility] - PATIENT WAS AT TREATMENT FACILITY AND LEFT AMA BY FOOT - PATIENT IS BACK IN THE AREA AND KATHLEEN HAS NO WAY OF CONTACTING PATIENT - IF PATIENT IS SEEN IN THE ED AGAIN-PLEASE ASK IF PATIENT WOULD BE OKAY WITH K[facility]LEEN BEING CONTACTED. E.D. VISIT COUNT (12 MO.) [address] Radha Wilson 21 LASHAY Delgado TOTAL 26 NOTE: Visits indicate total known visits. ED/UCC VISIT TRACKING (12 MO.) 01/29/2023 00:24 [facility] [place] TYPE: Emergency COMPLAINT: - SKIN PROBLEM 01/27/2023 09:48 [facility] [place] TYPE: Emergency COMPLAINT: - MEDICAL CLEARANCE 01/14/2023 10:54 [facility] 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 - Type 2 diabetes mellitus without complications 12/09/2022 18:55 [facility] Steve [place] TYPE: Emergency DIAGNOSES: - Cellulitis of right upper limb - Arm Swelling - Rt arm pain/swelling 11/23/2022 10:03 [facility] [place] TYPE: Emergency COMPLAINT: - THINKS HE HAS INFECTION DIAGNOSES: - Dental caries, unspecified - Diseases of lips - Essential (primary) hypertension - Nicotine dependence, unspecified, uncomplicated - Other halfway (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 - Type 2 diabetes [...] COMPLAINT: - EAR PAIN 10/31/2022 17:09 [facility] [place] TYPE: Emergency COMPLAINT: - HAND PAIN 10/13/2022 11:40 [facility] [place] TYPE: Emergency COMPLAINT: - MOUTH, HANDS, FEET PAIN, HEADACHE DIAGNOSES: - Essential (primary) hypertension - Localized edema - Nicotine dependence, unspecified, uncomplicated - Type 2 diabetes mellitus without complications 03/22/2022 09:10 [facility] [place] TYPE: Emergency COMPLAINT: - EXTREMITY PAIN/INJURY DIAGNOSES: - Essential (primary) hypertension - Nicotine dependence, unspecified, uncomplicated - Other halfway (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 - Other specified soft tissue disorders 03/14/2022 16:58 [facility] [place] TYPE: Emergency COMPLAINT: - SKIN PROBLEM DIAGNOSES: - Delusional disorders - Disorder of the skin and subcutaneous tissue, unspecified - Essential (primary) hypertension - Nicotine dependence, unspecified, uncomplicated - 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 - Other stimulant abuse, uncomplicated - Rash and other nonspecific skin eruption 03/10/2022 13:59 [facility] [place] TYPE: Emergency COMPLAINT: - MOUTH, THROAT, HANDS PAIN DIAGNOSES: - Changes in skin texture - Essential (primary) hypertension - Nicotine dependence, unspecified, uncomplicated - 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 - Other stimulant abuse, uncomplicated - Paresthesia of skin 03/07/2022 01:12 [facility] [place] TYPE: Emergency COMPLAINT: - ARM PAIN DIAGNOSES: - Essential (primary) hypertension - Nicotine dependence, unspecified, uncomplicated - Other halfway (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 - Other stimulant abuse, uncomplicated - Pain in right hand 03/03/2022 13:25 [facility] Radha [place] TYPE: Emergency DIAGNOSES: - Pruritus, unspecified - med refill - [facility]ication [facility] DIAGNOSES: - Dermatitis, unspecified - Other skin changes - foot issue - Hallucinations - Hand Swelling Plus 6 More Visits INPATIENT VISIT TRACKING (12 MO.) 12/09/2022 18[facility] DIAGNOSES: - Cellulitis of right upper limb - Cellulitis of right upper limb [email or web address]
[2023-01-29] MEDS ORDERED: KERALAC142 G1 TOP (00:34)
[2023-01-29 01:10] VITALS: BP 140/88
== END 2023-01-29 01:10 | disposition home or self-care (01) ==
LOC: ED 00:23
DX: L30.9 Dermatitis, unspecified (principal); I10 Essential (primary) hypertension; E11.9 Type 2 diabetes mellitus without complications; F17.200 Nicotine dependence, unspecified, uncomplicated; Z79.899 Other long term (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
CPT/HCPCS: 99283

== ENCOUNTER 2023-02-16 06:38 | Emergency (ER) | payer MEDICARE, OTHER ==
[~2023-02-16] VITALS: Ht 162.6 cm; Wt 49.0 kg
--- OUTSIDE RECORDS SUMMARY | ~2023-02-16 | XMS | Continuity of Care Document ---
Demographics + + + | Address | [address] | | | [place] [address] | + + + | Preferred Language | Unknown | + + + | Marital Status | Never | + + + | Buddhist Affiliation | Unknown | + + + | Race | White | + + + | Ethnic Group | Not or | + + + Author + + + | Author | [facility] | + + + | Organization | [facility] | + + + | Address | [address] | | | [place] [address] | + + + | Phone | | + + + Care Team Providers + + + + | Care Qa Tester Name | Role | Phone | + + + + Unavailable | Unavailable | + + + + Unavailable | Unavailable | + + + + Unavailable | Unavailable | + + + + Unavailable | Unavailable | + + + + Unavailable | Unavailable | + + + + Unavailable | Unavailable | + + + + Unavailable | Unavailable | + + + + Unavailable | Unavailable | + + + + Unavailable | Unavailable | + + + + Unavailable | Unavailable | + + + + Unavailable | Unavailable | + + + + Allergies and Intolerances + + + + + + | date | description | facility | reaction | severity | + + + + + + | (no date) | Mild | [facility] | (no reaction) | (no severity) | | [facility] | | | + + + + + + | (no date) | No Known Drug | [facility] | (no reaction) | (no severity) | | | Allergies | | | | + + + + + + Encounters No information. Functional Status No information. Immunizations No information. Medications + + + + | date | description | facility | + + + + | 2017-09-28 00:00 | | [facility] | | | Guaifenesin/Dextromethorpha | | | | n | | + + + + | 2017-09-28 00:00 | | [facility] | | | Guaifenesin/Dextromethorpha | | | | n | | + + + + | 2017-09-28 00:00 | | [facility] | | | Guaifenesin/Dextromethorpha | | | | n | | + + + + | 2017-09-28 00:00 | | [facility] | | | Guaifenesin/Dextromethorpha | | | | n | | + + + + | 2017-09-28 00:00 | | [facility] | | | Guaifenesin/Dextromethorpha | | | | n | | + + + + | 2017-09-28 00:00 | | [facility] | | | Guaifenesin/Dextromethorpha | | | | n | | + + + + | 2017-09-28 00:00 | | [facility] | | | Guaifenesin/Dextromethorpha | | | | n | | + + + + | 2017-09-28 00:00 | | [facility] | | | Guaifenesin/Dextromethorpha | | | | n | | + + + + | 2017-09-28 00:00 | | [facility] | | | Guaifenesin/Dextromethorpha | | | | n | | + + + + | 2021-04-03 00:00 | ONDANSETRON HCL | [facility] | + + + + | 2021-04-03 00:00 | ONDANSETRON HCL | [facility] | + + + + | 2021-04-03 00:00 | ONDANSETRON HCL | [facility] | + + + + | 2021-04-03 00:00 | ONDANSETRON HCL | [facility] | + + + + | 2021-04-03 00:00 | ONDANSETRON HCL | [facility] | + + + + | 2021-04-03 00:00 | ONDANSETRON HCL | [facility] | + + + + | 2021-04-03 00:00 | ONDANSETRON HCL | [facility] | + + + + | 2021-04-03 00:00 | ONDANSETRON HCL | [facility] | + + + + | 2021-04-03 00:00 | ONDANSETRON HCL | [facility] | + + + + | 2021-02-08 00:00 | TRIAMCINOLONE ACETONIDE | [facility] | + + + + | 2021-02-08 00:00 | TRIAMCINOLONE ACETONIDE | [facility] | + + + + | 2021-02-08 00:00 | TRIAMCINOLONE ACETONIDE | [facility] | + + + + | 2021-02-08 00:00 | TRIAMCINOLONE ACETONIDE | [facility] | + + + + | 2021-02-08 00:00 | TRIAMCINOLONE ACETONIDE | [facility] | + + + + | 2021-02-08 00:00 | TRIAMCINOLONE ACETONIDE | [facility] | + + + + | 2021-02-08 00:00 | TRIAMCINOLONE ACETONIDE | [facility] | + + + + | 2021-02-08 00:00 | TRIAMCINOLONE ACETONIDE | [facility] | + + + + | 2021-02-08 00:00 | TRIAMCINOLONE ACETONIDE | [facility] | + + + + | 2023-01-29 00:00 | UREA | [facility] | + + + + | 2023-01-29 00:00 | UREA | [facility] | + + + + | 2021-08-27 00:00 | OLANZAPINE | [facility] | + + + + | 2021-08-27 00:00 | OLANZAPINE | [facility] | + + + + | 2021-08-27 00:00 | OLANZAPINE | [facility] | + + + + | 2021-08-27 00:00 | OLANZAPINE | [facility] | + + + + | 2021-08-27 00:00 | OLANZAPINE | [facility] | + + + + | 2021-08-27 00:00 | OLANZAPINE | [facility] | + + + + | 2021-08-27 00:00 | OLANZAPINE | [facility] | + + + + | 2021-08-27 00:00 | OLANZAPINE | [facility] | + + + + | 2021-08-27 00:00 | OLANZAPINE | [facility] | + + + + | 2021-09-01 00:00 | OLANZAPINE | [facility] | + + + + | 2021-09-01 00:00 | OLANZAPINE | [facility] | + + + + | 2021-09-01 00:00 | OLANZAPINE | [facility] | + + + + | 2021-09-01 00:00 | OLANZAPINE | [facility] | + + + + | 2021-09-01 00:00 | OLANZAPINE | [facility] | + + + + | 2021-09-01 00:00 | OLANZAPINE | [facility] | + + + + | 2021-09-01 00:00 | OLANZAPINE | [facility] | + + + + | 2021-09-01 00:00 | OLANZAPINE | [facility] | + + + + | 2021-09-01 00:00 | OLANZAPINE | [facility] | + + + + | 2022-10-13 00:00 | DOXYCYCLINE HYCLATE | [facility] | + + + + | 2022-01-31 00:00 | AMLODIPINE BESYLATE | [facility] | + + + + | 2022-01-31 00:00 | AMLODIPINE BESYLATE | [facility] | + + + + | 2022-01-31 00:00 | AMLODIPINE BESYLATE | [facility] | + + + + | 2022-01-23 00:00 | CEPHALEXIN | [facility] | + + + + | 2022-01-23 00:00 | CEPHALEXIN | [facility] | + + + + | 2022-01-23 00:00 | CEPHALEXIN | [facility] | + + + + | 2022-01-23 00:00 | CEPHALEXIN | [facility] | + + + + | 2022-01-23 00:00 | CEPHALEXIN | [facility] | + + + + | 2022-01-23 00:00 | CEPHALEXIN | [facility] | + + + + | 2022-01-23 00:00 | CEPHALEXIN | [facility] | + + + + | 2022-01-23 00:00 | CEPHALEXIN | [facility] | + + + + | 2022-01-23 00:00 | CEPHALEXIN | [facility] | + + + + | 2022-03-10 00:00 | CEPHALEXIN | [facility] | + + + + | 2022-03-10 00:00 | CEPHALEXIN | [facility] | + + + + | 2017-09-07 00:00 | IBUPROFEN | [facility] | + + + + | 2017-09-07 00:00 | IBUPROFEN | [facility] | + + + + | 2017-09-07 00:00 | IBUPROFEN | [facility] | + + + + | 2017-09-07 00:00 | IBUPROFEN | [facility] | + + + + | 2017-09-07 00:00 | IBUPROFEN | [facility] | + + + + | 2017-09-07 00:00 | IBUPROFEN | [facility] | + + + + | 2017-09-07 00:00 | IBUPROFEN | [facility] | + + + + | 2017-09-07 00:00 | IBUPROFEN | [facility] | + + + + | 2017-09-07 00:00 | IBUPROFEN | [facility] | + + + + | 2023-01-01 00:00 | PERMETHRIN | [facility] | + + + + | 2023-01-01 00:00 | PERMETHRIN | [facility] | + + + + | 2023-01-01 00:00 | PERMETHRIN | [facility] | + + + + | 2023-01-01 00:00 | PERMETHRIN | [facility] | + + + + | 2023-01-01 00:00 | PERMETHRIN | [facility] | + + + + | 2019-01-27 00:00 | CEPHALEXIN | [facility] | + + + + | 2019-01-27 00:00 | CEPHALEXIN | [facility] | + + + + | 2019-01-27 00:00 | CEPHALEXIN | [facility] | + + + + | 2019-01-27 00:00 | CEPHALEXIN | [facility] | + + + + | 2019-01-27 00:00 | CEPHALEXIN | [facility] | + + + + | 2019-01-27 00:00 | CEPHALEXIN | [facility] | + + + + | 2019-01-27 00:00 | CEPHALEXIN | [facility] | + + + + | 2019-01-27 00:00 | CEPHALEXIN | [facility] | + + + + | 2019-01-27 00:00 | CEPHALEXIN | [facility] | + + + + | 2017-08-07 00:00 | AZITHROMYCIN | [facility] | + + + + | 2017-08-07 00:00 | AZITHROMYCIN | [facility] | + + + + | 2017-08-07 00:00 | AZITHROMYCIN | [facility] | + + + + | 2017-08-07 00:00 | AZITHROMYCIN | [facility] | + + + + | 2017-08-07 00:00 | AZITHROMYCIN | [facility] | + + + + | 2017-08-07 00:00 | AZITHROMYCIN | [facility] | + + + + | 2017-08-07 00:00 | AZITHROMYCIN | [facility] | + + + + | 2017-08-07 00:00 | AZITHROMYCIN | [facility] | + + + + | 2017-08-07 00:00 | AZITHROMYCIN | [facility] | + + + + | 2022-03-14 00:00 | BETAMETHASONE DIPROPIONATE | [facility] | | | | | + + + + | 2016-11-17 00:00 | CEPHALEXIN | [facility] | + + + + | 2016-11-17 00:00 | CEPHALEXIN | [facility] | + + + + | 2016-11-17 00:00 | CEPHALEXIN | [facility] | + + + + | 2016-11-17 00:00 | CEPHALEXIN | [facility] | + + + + | 2016-11-17 00:00 | CEPHALEXIN | [facility] | + + + + | 2016-11-17 00:00 | CEPHALEXIN | [facility] | + + + + | 2016-11-17 00:00 | CEPHALEXIN | [facility] | + + + + | 2016-11-17 00:00 | CEPHALEXIN | [facility] | + + + + | 2016-11-17 00:00 | CEPHALEXIN | [facility] | + + + + | 2016-11-20 00:00 | CEPHALEXIN | [facility] | + + + + | 2016-11-20 00:00 | CEPHALEXIN | [facility] | + + + + | 2016-11-20 00:00 | CEPHALEXIN | [facility] | + + + + | 2016-11-20 00:00 | CEPHALEXIN | [facility] | + + + + | 2016-11-20 00:00 | CEPHALEXIN | [facility] | + + + + | 2016-11-20 00:00 | CEPHALEXIN | [facility] | + + + + | 2016-11-20 00:00 | CEPHALEXIN | [facility] | + + + + | 2016-11-20 00:00 | CEPHALEXIN | [facility] | + + + + | 2016-11-20 00:00 | CEPHALEXIN | [facility] | + + + + | 2022-02-03 00:00 | CEPHALEXIN | [facility] | + + + + | 2022-02-05 00:00 | CEPHALEXIN | [facility] | + + + + | 2022-02-06 00:00 | CEPHALEXIN | [facility] | + + + + | 2022-02-06 00:00 | CEPHALEXIN | [facility] | + + + + | 2022-02-07 00:00 | CEPHALEXIN | [facility] | + + + + | 2022-02-10 00:00 | CEPHALEXIN | [facility] | + + + + | 2022-02-16 00:00 | CEPHALEXIN | [facility] | + + + + | 2022-03-14 00:00 | CEPHALEXIN | [facility] | + + + + | 2022-03-19 00:00 | CEPHALEXIN | [facility] | + + + + | 2022-03-22 00:00 | CEPHALEXIN | [facility] | + + + + | 2022-10-13 00:00 | CEPHALEXIN | [facility] | + + + + | 2022-10-31 00:00 | CEPHALEXIN | [facility] | + + + + | 2022-11-21 00:00 | CEPHALEXIN | [facility] | + + + + | 2022-11-22 00:00 | CEPHALEXIN | [facility] | + + + + | 2022-11-23 00:00 | CEPHALEXIN | [facility] | + + + + | 2022-12-16 00:00 | CEPHALEXIN | [facility] | + + + + | 2022-12-21 00:00 | CEPHALEXIN | [facility] | + + + + | 2023-01-01 00:00 | CEPHALEXIN | [facility] | + + + + | 2023-01-10 00:00 | CEPHALEXIN | [facility] | + + + + | 2023-01-27 00:00 | CEPHALEXIN | [facility] | + + + + | 2023-01-29 00:00 | CEPHALEXIN | [facility] | + + + + | 2023-02-14 00:00 | CEPHALEXIN | [facility] | + + + + | 2023-02-15 00:00 | CEPHALEXIN | [facility] | + + + + | 2020-07-15 00:00 | Erythromycin Base | [facility] | + + + + | 2020-07-15 00:00 | Erythromycin Base | [facility] | + + + + | 2020-07-15 00:00 | Erythromycin Base | [facility] | + + + + 2020-07-15 00:00 | Erythromycin Base | [facility] | + + + + | 2020-07-15 00:00 | Erythromycin Base | [facility] | + + + + | 2020-07-15 00:00 | Erythromycin Base | [facility] | + + + + | 2020-07-15 00:00 | Erythromycin Base | [facility] | + + + + | 2020-07-15 00:00 | Erythromycin Base | [facility] | + + + + | 2020-07-15 00:00 | Erythromycin Base | [facility] | + + + + | 2022-10-13 00:00 | ONDANSETRON | [facility] | + + + + | 2022-02-03 00:00 | Oseltamivir Phosphate | [facility] | + + + + | 2022-02-05 00:00 | Oseltamivir Phosphate | [facility] | + + + + | 2022-02-06 00:00 | Oseltamivir Phosphate | [facility] | + + + + | 2022-02-06 00:00 | Oseltamivir Phosphate | [facility] | + + + + | 2022-02-07 00:00 | Oseltamivir Phosphate | [facility] | + + + + | 2022-02-10 00:00 | Oseltamivir Phosphate | [facility] | + + + + | 2022-02-16 00:00 | Oseltamivir Phosphate | [facility] | + + + + | 2022-03-14 00:00 | Oseltamivir Phosphate | [facility] | + + + + | 2022-03-19 00:00 | Oseltamivir Phosphate | [facility] | + + + + | 2022-03-22 00:00 | Oseltamivir Phosphate | [facility] | + + + + | 2022-10-13 00:00 | Oseltamivir Phosphate | [facility] | + + + + | 2022-10-31 00:00 | Oseltamivir Phosphate | [facility] | + + + + | 2022-11-21 00:00 | Oseltamivir Phosphate | [facility] | + + + + | 2022-11-22 00:00 | Oseltamivir Phosphate | [facility] | + + + + | 2022-11-23 00:00 | Oseltamivir Phosphate | [facility] | + + + + | 2022-12-16 00:00 | Oseltamivir Phosphate | [facility] | + + + + | 2022-12-21 00:00 | Oseltamivir Phosphate | [facility] | + + + + | 2023-01-01 00:00 | Oseltamivir Phosphate | [facility] | + + + + | 2023-01-10 00:00 | Oseltamivir Phosphate | [facility] | + + + + | 2023-01-27 00:00 | Oseltamivir Phosphate | [facility] | + + + + | 2023-01-29 00:00 | Oseltamivir Phosphate | [facility] | + + + + | 2023-02-14 00:00 | Oseltamivir Phosphate | [facility] | + + + + | 2023-02-15 00:00 | Oseltamivir Phosphate | [facility] | + + + + | 2022-02-03 00:00 | PIMOZIDE | [facility] | + + + + | 2022-02-05 00:00 | PIMOZIDE | [facility] | + + + + | 2022-02-06 00:00 | PIMOZIDE | [facility] | + + + + | 2022-02-06 00:00 | PIMOZIDE | [facility] | + + + + | 2022-02-07 00:00 | PIMOZIDE | [facility] | + + + + | 2022-02-10 00:00 | PIMOZIDE | [facility] | + + + + | 2022-02-16 00:00 | PIMOZIDE | [facility] | + + + + | 2022-03-14 00:00 | PIMOZIDE | [facility] | + + + + | 2022-03-19 00:00 | PIMOZIDE | [facility] | + + + + | 2022-03-22 00:00 | PIMOZIDE | [facility] | + + + + | 2022-10-13 00:00 | PIMOZIDE | [facility] | + + + + | 2022-10-31 00:00 | PIMOZIDE | [facility] | + + + + | 2022-11-21 00:00 | PIMOZIDE | [facility] | + + + + | 2022-11-22 00:00 | PIMOZIDE | [facility] | + + + + | 2022-11-23 00:00 | PIMOZIDE | [facility] | + + + + | 2022-12-16 00:00 | PIMOZIDE | [facility] | + + + + | 2022-12-21 00:00 | PIMOZIDE | [facility] | + + + + | 2023-01-01 00:00 | PIMOZIDE | [facility] | + + + + | 2023-01-10 00:00 | PIMOZIDE | [facility] | + + + + | 2023-01-27 00:00 | PIMOZIDE | [facility] | + + + + | 2023-01-29 00:00 | PIMOZIDE | [facility] | + + + + | 2023-02-14 00:00 | PIMOZIDE | [facility] | + + + + | 2023-02-15 00:00 | PIMOZIDE | [facility] | + + + + | 2017-06-18 00:00 | predniSONE | [facility] | + + + + | 2017-06-18 00:00 | predniSONE | [facility] | + + + + | 2017-06-18 00:00 | predniSONE | [facility] | + + + + | 2017-06-18 00:00 | predniSONE | [facility] | + + + + | 2017-06-18 00:00 | predniSONE | [facility] | + + + + | 2017-06-18 00:00 | predniSONE | [facility] | + + + + | 2017-06-18 00:00 | predniSONE | [facility] | + + + + | 2017-06-18 00:00 | predniSONE | [facility] | + + + + | 2017-06-18 00:00 | predniSONE | [facility] | + + + + | 2020-01-23 00:00 | predniSONE | [facility] | + + + + | 2020-01-23 00:00 | predniSONE | [facility] | + + + + | 2020-01-23 00:00 | predniSONE | [facility] | + + + + | 2020-01-23 00:00 | predniSONE | [facility] | + + + + | 2020-01-23 00:00 | predniSONE | [facility] | + + + + | 2020-01-23 00:00 | predniSONE | [facility] | + + + + 2020-01-23 00:00 | predniSONE | [facility] | + + + + | 2020-01-23 00:00 | predniSONE | [facility] | + + + + | 2020-01-23 00:00 | predniSONE | [facility] | + + + + | 2022-03-22 00:00 | predniSONE | [facility] | + + + + | 2016-05-14 00:00 | HALOPERIDOL | [facility] | + + + + | 2016-05-14 00:00 | HALOPERIDOL | [facility] | + + + + | 2016-05-14 00:00 | HALOPERIDOL | [facility] | + + + + | 2016-05-14 00:00 | HALOPERIDOL | [facility] | + + + + | 2016-05-14 00:00 | HALOPERIDOL | [facility] | + + + + | 2016-05-14 00:00 | HALOPERIDOL | [facility] | + + + + | 2016-05-14 00:00 | HALOPERIDOL | [facility] | + + + + | 2016-05-14 00:00 | HALOPERIDOL | [facility] | + + + + | 2016-05-14 00:00 | HALOPERIDOL | [facility] | + + + + | 2018-02-21 00:00 | HALOPERIDOL | [facility] | + + + + | 2018-02-21 00:00 | HALOPERIDOL | [facility] | + + + + | 2018-02-21 00:00 | HALOPERIDOL | [facility] | + + + + | 2018-02-21 00:00 | HALOPERIDOL | [facility] | + + + + | 2018-02-21 00:00 | HALOPERIDOL | [facility] | + + + + | 2018-02-21 00:00 | HALOPERIDOL | [facility] | + + + + | 2018-02-21 00:00 | HALOPERIDOL | [facility] | + + + + | 2018-02-21 00:00 | HALOPERIDOL | [facility] | + + + + | 2018-02-21 00:00 | HALOPERIDOL | [facility] | + + + + | 2022-02-03 00:00 | HALOPERIDOL | [facility] | + + + + | 2022-02-05 00:00 | HALOPERIDOL | [facility] | + + + + | 2022-02-06 00:00 | HALOPERIDOL | [facility] | + + + + | 2022-02-06 00:00 | HALOPERIDOL | [facility] | + + + + | 2022-02-07 00:00 | HALOPERIDOL | [facility] | + + + + | 2022-02-10 00:00 | HALOPERIDOL | [facility] | + + + + | 2022-02-16 00:00 | HALOPERIDOL | [facility] | + + + + | 2022-03-14 00:00 | HALOPERIDOL | [facility] | + + + + | 2022-03-19 00:00 | HALOPERIDOL | [facility] | + + + + | 2022-03-22 00:00 | HALOPERIDOL | [facility] | + + + + | 2022-10-13 00:00 | HALOPERIDOL | [facility] | + + + + | 2022-10-31 00:00 | HALOPERIDOL | [facility] | + + + + | 2022-11-21 00:00 | HALOPERIDOL | [facility] | + + + + | 2022-11-22 00:00 | HALOPERIDOL | [facility] | + + + + | 2022-11-23 00:00 | HALOPERIDOL | [facility] | + + + + | 2022-12-16 00:00 | HALOPERIDOL | [facility] | + + + + | 2022-12-21 00:00 | HALOPERIDOL | [facility] | + + + + | 2023-01-01 00:00 | HALOPERIDOL | [facility] | + + + + | 2023-01-10 00:00 | HALOPERIDOL | [facility] | + + + + | 2023-01-27 00:00 | HALOPERIDOL | [facility] | + + + + | 2023-01-29 00:00 | HALOPERIDOL | [facility] | + + + + | 2023-02-14 00:00 | HALOPERIDOL | [facility] | + + + + | 2023-02-15 00:00 | HALOPERIDOL | [facility] | + + + + | 2021-07-02 00:00 | LISINOPRIL | [facility] | + + + + | 2021-07-02 00:00 | LISINOPRIL | [facility] | + + + + | 2021-07-02 00:00 | LISINOPRIL | [facility] | + + + + | 2021-07-02 00:00 | LISINOPRIL | [facility] | + + + + | 2021-07-02 00:00 | LISINOPRIL | [facility] | + + + + | 2021-07-02 00:00 | LISINOPRIL | [facility] | + + + + | 2021-07-02 00:00 | LISINOPRIL | [facility] | + + + + | 2021-07-02 00:00 | LISINOPRIL | [facility] | + + + + | 2021-07-02 00:00 | LISINOPRIL | [facility] | + + + + | 2023-01-01 00:00 | LISINOPRIL | [facility] | + + + + | 2023-01-01 00:00 | LISINOPRIL | [facility] | + + + + | 2023-01-01 00:00 | LISINOPRIL | [facility] | + + + + | 2023-01-01 00:00 | LISINOPRIL | [facility] | + + + + | 2023-01-01 00:00 | LISINOPRIL | [facility] | + + + + | 2023-01-10 00:00 | LISINOPRIL | [facility] | + + + + | 2023-01-27 00:00 | LISINOPRIL | [facility] | + + + + | 2023-01-29 00:00 | LISINOPRIL | [facility] | + + + + | 2023-02-14 00:00 | LISINOPRIL | [facility] | + + + + | 2023-02-15 00:00 | LISINOPRIL | [facility] | + + + + | 2023-01-01 00:00 | HYDROCHLOROTHIAZIDE | [facility] | + + + + | 2023-01-01 00:00 | HYDROCHLOROTHIAZIDE | [facility] | + + + + | 2023-01-01 00:00 | HYDROCHLOROTHIAZIDE | [facility] | + + + + | 2023-01-01 00:00 | HYDROCHLOROTHIAZIDE | [facility] | + + + + | 2023-01-01 00:00 | HYDROCHLOROTHIAZIDE | [facility] | + + + + | 2023-01-10 00:00 | HYDROCHLOROTHIAZIDE | [facility] | + + + + | 2023-01-27 00:00 | HYDROCHLOROTHIAZIDE | [facility] | + + + + | 2023-01-29 00:00 | HYDROCHLOROTHIAZIDE | [facility] | + + + + | 2023-02-14 00:00 | HYDROCHLOROTHIAZIDE | [facility] | + + + + | 2023-02-15 00:00 | HYDROCHLOROTHIAZIDE | [facility] | + + + + | 2022-11-22 00:00 | AMOXICILLIN/POTASSIUM CLAV | [facility] | | | | | + + + + | 2022-11-22 00:00 | AMOXICILLIN/POTASSIUM CLAV | [facility] | | | | | + + + + | 2017-09-28 00:00 | ALBUTEROL SULFATE | [facility] | + + + + | 2017-09-28 00:00 | ALBUTEROL SULFATE | [facility] | + + + + | 2017-09-28 00:00 | ALBUTEROL SULFATE | [facility] | + + + + | 2017-09-28 00:00 | ALBUTEROL SULFATE | [facility] | + + + + | 2017-09-28 00:00 | ALBUTEROL SULFATE | [facility] | + + + + | 2017-09-28 00:00 | ALBUTEROL SULFATE | [facility] | + + + + | 2017-09-28 00:00 | ALBUTEROL SULFATE | [facility] | + + + + | 2017-09-28 00:00 | ALBUTEROL SULFATE | [facility] | + + + + | 2017-09-28 00:00 | ALBUTEROL SULFATE | [facility] | + + + + | 2017-09-07 00:00 | CLINDAMYCIN HCL | [facility] | + + + + | 2017-09-07 00:00 | CLINDAMYCIN HCL | [facility] | + + + + | 2017-09-07 00:00 | CLINDAMYCIN HCL | [facility] | + + + + | 2017-09-07 00:00 | CLINDAMYCIN HCL | [facility] | + + + + | 2017-09-07 00:00 | CLINDAMYCIN HCL | [facility] | + + + + | 2017-09-07 00:00 | CLINDAMYCIN HCL | [facility] | + + + + | 2017-09-07 00:00 | CLINDAMYCIN HCL | [facility] | + + + + | 2017-09-07 00:00 | CLINDAMYCIN HCL | [facility] | + + + + | 2017-09-07 00:00 | CLINDAMYCIN HCL | [facility] | + + + + | 2020-06-16 00:00 | CLINDAMYCIN HCL | [facility] | + + + + | 2020-06-16 00:00 | CLINDAMYCIN HCL | [facility] | + + + + | 2020-06-16 00:00 | CLINDAMYCIN HCL | [facility] | + + + + | 2020-06-16 00:00 | CLINDAMYCIN HCL | [facility] | + + + + | 2020-06-16 00:00 | CLINDAMYCIN HCL | [facility] | + + + + 2020-06-16 00:00 | CLINDAMYCIN HCL | [facility] | + + + + | 2020-06-16 00:00 | CLINDAMYCIN HCL | [facility] | + + + + | 2020-06-16 00:00 | CLINDAMYCIN HCL | [facility] | + + + + | 2020-06-16 00:00 | CLINDAMYCIN HCL | [facility] | + + + + | 2020-07-12 00:00 | CLINDAMYCIN HCL | [facility] | + + + + | 2020-07-12 00:00 | CLINDAMYCIN HCL | [facility] | + + + + | 2020-07-12 00:00 | CLINDAMYCIN HCL | [facility] | + + + + | 2020-07-12 00:00 | CLINDAMYCIN HCL | [facility] | + + + + | 2020-07-12 00:00 | CLINDAMYCIN HCL | [facility] | + + + + | 2020-07-12 00:00 | CLINDAMYCIN HCL | [facility] | + + + + | 2020-07-12 00:00 | CLINDAMYCIN HCL | [facility] | + + + + | 2020-07-12 00:00 | CLINDAMYCIN HCL | [facility] | + + + + | 2020-07-12 00:00 | CLINDAMYCIN HCL | [facility] | + + + + | 2022-11-23 00:00 | CLINDAMYCIN HCL | [facility] | + + + + | 2022-11-23 00:00 | CLINDAMYCIN HCL | [facility] | + + + + | 2017-08-07 00:00 | METHYLPREDNISOLONE | [facility] | + + + + | 2017-08-07 00:00 | METHYLPREDNISOLONE | [facility] | + + + + | 2017-08-07 00:00 | METHYLPREDNISOLONE | [facility] | + + + + | 2017-08-07 00:00 | METHYLPREDNISOLONE | [facility] | + + + + | 2017-08-07 00:00 | METHYLPREDNISOLONE | [facility] | + + + + | 2017-08-07 00:00 | METHYLPREDNISOLONE | [facility] | + + + + | 2017-08-07 00:00 | METHYLPREDNISOLONE | [facility] | + + + + | 2017-08-07 00:00 | METHYLPREDNISOLONE | [facility] | + + + + | 2017-08-07 00:00 | METHYLPREDNISOLONE | [facility] | + + + + | 2021-08-27 00:00 | Chlorhexidine Gluconate | [facility] | + + + + | 2021-08-27 00:00 | Chlorhexidine Gluconate | [facility] | + + + + | 2021-08-27 00:00 | Chlorhexidine Gluconate | [facility] | + + + + | 2021-08-27 00:00 | Chlorhexidine Gluconate | [facility] | + + + + | 2021-08-27 00:00 | Chlorhexidine Gluconate | [facility] | + + + + | 2021-08-27 00:00 | Chlorhexidine Gluconate | [facility] | + + + + | 2021-08-27 00:00 | Chlorhexidine Gluconate | [facility] | + + + + | 2021-08-27 00:00 | Chlorhexidine Gluconate | [facility] | + + + + | 2021-08-27 00:00 | Chlorhexidine Gluconate | [facility] | + + + + | 2014-02-25 00:00 | | [facility] | | | SULFAMETHOXAZOLE/TRIMETHOPR | | | | IM DS | | + + + + | 2014-02-25 00:00 | | [facility] | | | SULFAMETHOXAZOLE/TRIMETHOPR | | | | IM DS | | + + + + | 2014-02-25 00:00 | | [facility] | | | SULFAMETHOXAZOLE/TRIMETHOPR | | | | IM DS | | + + + + | 2014-02-25 00:00 | | [facility] | | | SULFAMETHOXAZOLE/TRIMETHOPR | | | | IM DS | | + + + + | 2014-02-25 00:00 | | [facility] | | | SULFAMETHOXAZOLE/TRIMETHOPR | | | | IM DS | | + + + + | 2014-02-25 00:00 | | [facility] | | | SULFAMETHOXAZOLE/TRIMETHOPR | | | | IM DS | | + + + + | 2014-02-25 00:00 | | [facility] | | | SULFAMETHOXAZOLE/TRIMETHOPR | | | | IM DS | | + + + + | 2014-02-25 00:00 | | [facility] | | | SULFAMETHOXAZOLE/TRIMETHOPR | | | | IM DS | | + + + + | 2014-02-25 00:00 | | [facility] | | | SULFAMETHOXAZOLE/TRIMETHOPR | | | | IM DS | | + + + + | 2017-10-08 00:00 | | [facility] | | | SULFAMETHOXAZOLE/TRIMETHOPR | | | | IM DS | | + + + + | 2017-10-08 00:00 | | [facility] | | | SULFAMETHOXAZOLE/TRIMETHOPR | | | | IM DS | | + + + + | 2017-10-08 00:00 | | [facility] | | | SULFAMETHOXAZOLE/TRIMETHOPR | | | | IM DS | | + + + + | 2017-10-08 00:00 | | [facility] | | | SULFAMETHOXAZOLE/TRIMETHOPR | | | | IM DS | | + + + + | 2017-10-08 00:00 | | [facility] | | | SULFAMETHOXAZOLE/TRIMETHOPR | | | | IM DS | | + + + + | 2017-10-08 00:00 | | [facility] | | | SULFAMETHOXAZOLE/TRIMETHOPR | | | | IM DS | | + + + + | 2017-10-08 00:00 | | [facility] | | | SULFAMETHOXAZOLE/TRIMETHOPR | | | | IM DS | | + + + + | 2017-10-08 00:00 | | [facility] | | | SULFAMETHOXAZOLE/TRIMETHOPR | | | | IM DS | | + + + + | 2017-10-08 00:00 | | [facility] | | | SULFAMETHOXAZOLE/TRIMETHOPR | | | | IM DS | | + + + + | 2022-01-31 00:00 | | [facility] | | | SULFAMETHOXAZOLE/TRIMETHOPR | | | | IM DS | | + + + + | 2017-06-18 00:00 | ALBUTEROL SULFATE | [facility] | + + + + | 2017-06-18 00:00 | ALBUTEROL SULFATE | [facility] | + + + + | 2017-06-18 00:00 | ALBUTEROL SULFATE | [facility] | + + + + | 2017-06-18 00:00 | ALBUTEROL SULFATE | [facility] | + + + + | 2017-06-18 00:00 | ALBUTEROL SULFATE | [facility] | + + + + | 2017-06-18 00:00 | ALBUTEROL SULFATE | [facility] | + + + + | 2017-06-18 00:00 | ALBUTEROL SULFATE | [facility] | + + + + | 2017-06-18 00:00 | ALBUTEROL SULFATE | [facility] | + + + + | 2017-06-18 00:00 | ALBUTEROL SULFATE | [facility] | + + + + | 2017-08-07 00:00 | ALBUTEROL SULFATE | [facility] | + + + + | 2017-08-07 00:00 | ALBUTEROL SULFATE | [facility] | + + + + | 2017-08-07 00:00 | ALBUTEROL SULFATE | [facility] | + + + + | 2017-08-07 00:00 | ALBUTEROL SULFATE | [facility] | + + + + | 2017-08-07 00:00 | ALBUTEROL SULFATE | [facility] | + + + + | 2017-08-07 00:00 | ALBUTEROL SULFATE | [facility] | + + + + | 2017-08-07 00:00 | ALBUTEROL SULFATE | [facility] | + + + + | 2017-08-07 00:00 | ALBUTEROL SULFATE | [facility] | + + + + | 2017-08-07 00:00 | ALBUTEROL SULFATE | [facility] | + + + + | 2022-02-03 00:00 | ONDANSETRON | [facility] | + + + + | 2022-02-05 00:00 | ONDANSETRON | [facility] | + + + + | 2022-02-06 00:00 | ONDANSETRON | [facility] | + + + + | 2022-02-06 00:00 | ONDANSETRON | [facility] | + + + + | 2022-02-07 00:00 | ONDANSETRON | [facility] | + + + + | 2022-02-10 00:00 | ONDANSETRON | [facility] | + + + + | 2022-02-16 00:00 | ONDANSETRON | [facility] | + + + + | 2022-03-14 00:00 | ONDANSETRON | [facility] | + + + + | 2022-03-19 00:00 | ONDANSETRON | [facility] | + + + + | 2022-03-22 00:00 | ONDANSETRON | [facility] | + + + + | 2022-10-13 00:00 | ONDANSETRON | [facility] | + + + + | 2022-10-31 00:00 | ONDANSETRON | [facility] | + + + + | 2022-11-21 00:00 | ONDANSETRON | [facility] | + + + + | 2022-11-22 00:00 | ONDANSETRON | [facility] | + + + + | 2022-11-23 00:00 | ONDANSETRON | [facility] | + + + + | 2022-12-16 00:00 | ONDANSETRON | [facility] | + + + + | 2022-12-21 00:00 | ONDANSETRON | [facility] | + + + + | 2023-01-01 00:00 | ONDANSETRON | [facility] | + + + + | 2023-01-10 00:00 | ONDANSETRON | [facility] | + + + + | 2023-01-27 00:00 | ONDANSETRON | [facility] | + + + + | 2023-01-29 00:00 | ONDANSETRON | [facility] | + + + + | 2023-02-14 00:00 | ONDANSETRON | [facility] | + + + + | 2023-02-15 00:00 | ONDANSETRON | [facility] | + + + + | 2020-12-15 00:00 | MECLIZINE HCL | [facility] | + + + + | 2020-12-15 00:00 | MECLIZINE HCL | [facility] | + + + + | 2020-12-15 00:00 | MECLIZINE HCL | [facility] | + + + + | 2020-12-15 00:00 | MECLIZINE HCL | [facility] | + + + + | 2020-12-15 00:00 | MECLIZINE HCL | [facility] | + + + + | 2020-12-15 00:00 | MECLIZINE HCL | [facility] | + + + + | 2020-12-15 00:00 | MECLIZINE HCL | [facility] | + + + + | 2020-12-15 00:00 | MECLIZINE HCL | [facility] | + + + + | 2020-12-15 00:00 | MECLIZINE HCL | [facility] | + + + + Problems + + + + | date | description | facility | + + + + | 2016-05-14 00:00 | Encounter for medication | [facility] | | | refill | | + + + + | 2016-05-14 00:00 | Encounter for medication | [facility] | | | refill | | + + + + | 2016-05-14 00:00 | Encounter for medication | [facility] | | | refill | | + + + + | 2016-05-14 00:00 | Encounter for medication | [facility] | | | refill | | + + + + | 2016-05-14 00:00 | Encounter for medication | [facility] | | | refill | | + + + + | 2016-05-14 00:00 | Encounter for medication | [facility] | | | refill | | + + + + | 2016-05-14 00:00 | Encounter for medication | [facility] | | | refill | | + + + + | 2016-05-14 00:00 | Encounter for medication | [facility] | | | refill | | + + + + | 2016-05-14 00:00 | Encounter for medication | [facility] | | | refill | | + + + + | 2016-08-19 00:00 | Encounter for medical | [facility] | | | screening examination | | + + + + | 2016-08-19 00:00 | Encounter for medical | [facility] | | | screening examination | | + + + + | 2016-08-19 00:00 | Encounter for medical | [facility] | | | screening examination | | + + + + | 2016-08-19 00:00 | Encounter for medical | [facility] | | | screening examination | | + + + + | 2016-08-19 00:00 | Encounter for medical | [facility] | | | screening examination | | + + + + | 2016-08-19 00:00 | Encounter for medical | [facility] | | | screening examination | | + + + + | 2016-08-19 00:00 | Encounter for medical | [facility] | | | screening examination | | + + + + | 2016-08-19 00:00 | Encounter for medical | [facility] | | | screening examination | | + + + + | 2016-08-19 00:00 | Encounter for medical | [facility] | | | screening examination | | + + + + | 2016-10-10 00:00 | Constipation | [facility] | + + + + | 2016-10-10 00:00 | Constipation | [facility] | + + + + | 2016-10-10 00:00 | Constipation | [facility] | + + + + | 2016-10-10 00:00 | Constipation | [facility] | + + + + | 2016-10-10 00:00 | Constipation | [facility] | + + + + | 2016-10-10 00:00 | Constipation | [facility] | + + + + | 2016-10-10 00:00 | Constipation | [facility] | + + + + | 2016-10-10 00:00 | Constipation | [facility] | + + + + | 2016-10-10 00:00 | Constipation | [facility] | + + + + | 2016-10-10 00:00 | Nonspecific abdominal pain | [facility] | | | | | + + + + | 2016-10-10 00:00 | Nonspecific abdominal pain | [facility] | | | | | + + + + | 2016-10-10 00:00 | Nonspecific abdominal pain | [facility] | | | | | + + + + | 2016-10-10 00:00 | Nonspecific abdominal pain | [facility] | | | | | + + + + | 2016-10-10 00:00 | Nonspecific abdominal pain | [facility] | | | | | + + + + | 2016-10-10 00:00 | Nonspecific abdominal pain | [facility] | | | | | + + + + | 2016-10-10 00:00 | Nonspecific abdominal pain | [facility] | | | | | + + + + | 2016-10-10 00:00 | Nonspecific abdominal pain | [facility] | | | | | + + + + | 2016-10-10 00:00 | Nonspecific abdominal pain | [facility] | | | | | + + + + | 2016-10-31 00:00 | Methamphetamine abuse | [facility] | + + + + | 2016-10-31 00:00 | Methamphetamine abuse | [facility] | + + + + | 2016-10-31 00:00 | Methamphetamine abuse | [facility] | + + + + | 2016-10-31 00:00 | Methamphetamine abuse | [facility] | + + + + | 2016-10-31 00:00 | Methamphetamine abuse | [facility] | + + + + | 2016-10-31 00:00 | Methamphetamine abuse | [facility] | + + + + | 2016-10-31 00:00 | Methamphetamine abuse | [facility] | + + + + | 2016-10-31 00:00 | Methamphetamine abuse | [facility] | + + + + | 2016-10-31 00:00 | Methamphetamine abuse | [facility] | + + + + | 2016-10-31 00:00 | Chronic abdominal pain | [facility] | + + + + | 2016-10-31 00:00 | Chronic abdominal pain | [facility] | + + + + | 2016-10-31 00:00 | Chronic abdominal pain | [facility] | + + + + | 2016-10-31 00:00 | Chronic abdominal pain | [facility] | + + + + | 2016-10-31 00:00 | Chronic abdominal pain | [facility] | + + + + | 2016-10-31 00:00 | Chronic abdominal pain | [facility] | + + + + | 2016-10-31 00:00 | Chronic abdominal pain | [facility] | + + + + | 2016-10-31 00:00 | Chronic abdominal pain | [facility] | + + + + | 2016-10-31 00:00 | Chronic abdominal pain | [facility] | + + + + | 2016-10-31 00:00 | Weight loss | [facility] | + + + + | 2016-10-31 00:00 | Weight loss | [facility] | + + + + | 2016-10-31 00:00 | Weight loss | [facility] | + + + + | 2016-10-31 00:00 | Weight loss | [facility] | + + + + | 2016-10-31 00:00 | Weight loss | [facility] | + + + + | 2016-10-31 00:00 | Weight loss | [facility] | + + + + | 2016-10-31 00:00 | Weight loss | [facility] | + + + + | 2016-10-31 00:00 | Weight loss | [facility] | + + + + | 2016-10-31 00:00 | Weight loss | [facility] | + + + + | 2016-11-17 00:00 | Cellulitis | [facility] | + + + + | 2016-11-17 00:00 | Cellulitis | [facility] | + + + + | 2016-11-17 00:00 | Cellulitis | [facility] | + + + + | 2016-11-17 00:00 | Cellulitis | [facility] | + + + + | 2016-11-17 00:00 | Cellulitis | [facility] | + + + + | 2016-11-17 00:00 | Cellulitis | [facility] | + + + + | 2016-11-17 00:00 | Cellulitis | [facility] | + + + + | 2016-11-17 00:00 | Cellulitis | [facility] | + + + + | 2016-11-17 00:00 | Cellulitis | [facility] | + + + + | 2017-01-04 00:00 | Mononeuropathy of right | [facility]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 | | + + + + | 2017-01-04 00:00 | Mononeuropathy of right | [facility]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 | | + + + + | 2017-01-04 00:00 | Mononeuropathy of right | [facility]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 | | + + + + | 2017-01-04 00:00 | Mononeuropathy of right | [facility]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 | | + + + + | 2017-01-04 00:00 | Mononeuropathy of right | [facility]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 | | + + + + | 2017-01-04 00:00 | Mononeuropathy of right | [facility]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 | | + + + + | 2017-01-04 00:00 | Mononeuropathy of right | [facility]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 | | + + + + | 2017-01-04 00:00 | Mononeuropathy of right | [facility]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 | | + + + + | 2017-01-04 00:00 | Mononeuropathy of right | [facility]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 | | + + + + | 2017-06-09 00:00 | Patient left without being | [facility] | | | seen | | + + + + | 2017-06-09 00:00 | Patient left without being | [facility] | | | seen | | + + + + | 2017-06-09 00:00 | Patient left without being | [facility] | | seen | | + + + + | 2017-06-09 00:00 | Patient left without being | [facility] | | | seen | | + + + + | 2017-06-09 00:00 | Patient left without being | [facility] [facility] | | | seen | | + + + + | 2017-06-09 00:00 | Patient left without being | [facility] [place] [facility] | | | seen | | + + + + | 2017-06-09 00:00 | Patient left without being | [facility] | | | seen | | + + + + | 2017-06-09 00:00 | Patient left without being | [facility] | | | seen | | + + + + | 2017-06-09 00:00 | Patient left without being | [facility] | | | seen | | + + + + | 2017-06-18 00:00 | Obstructive chronic | [facility] | | | bronchitis with | | | | exacerbation | | + + + + | 2017-06-18 00:00 | Obstructive chronic | [facility] | | | bronchitis with | | | | exacerbation | | + + + + | 2017-06-18 00:00 | Obstructive chronic | [facility] | | | bronchitis with | | | | exacerbation | | + + + + | 2017-06-18 00:00 | Obstructive chronic | [facility] | | | bronchitis with | | | | exacerbation | | + + + + | 2017-06-18 00:00 | Obstructive chronic | [facility] | | | bronchitis with | | | | exacerbation | | + + + + | 2017-06-18 00:00 | Obstructive chronic | [facility] | | | bronchitis with | | | | exacerbation | | + + + + | 2017-06-18 00:00 | Obstructive chronic | [facility] | | | bronchitis with | | | | exacerbation | | + + + + | 2017-06-18 00:00 | Obstructive chronic | [facility] | | | bronchitis with | | | | exacerbation | | + + + + | 2017-06-18 00:00 | Obstructive chronic | [facility] | | | bronchitis with | | | | exacerbation | | + + + + | 2017-06-18 00:00 | Dyspnea on exertion | [facility] | + + + + | 2017-06-18 00:00 | Dyspnea on exertion | [facility] | + + + + | 2017-06-18 00:00 | Dyspnea on exertion | [facility] | + + + + | 2017-06-18 00:00 | Dyspnea on exertion | [facility] | + + + + | 2017-06-18 00:00 | Dyspnea on exertion | [facility] | + + + + | 2017-06-18 00:00 | Dyspnea on exertion | [facility] | + + + + | 2017-06-18 00:00 | Dyspnea on exertion | [facility] | + + + + | 2017-06-18 00:00 | Dyspnea on exertion | [facility] | + + + + | 2017-06-18 00:00 | Dyspnea on exertion | [facility] | + + + + | 2017-08-07 00:00 | Bronchitis | [facility] | + + + + | 2017-08-07 00:00 | Bronchitis | [facility] | + + + + | 2017-08-07 00:00 | Bronchitis | [facility] | + + + + | 2017-08-07 00:00 | Bronchitis | [facility] | + + + + | 2017-08-07 00:00 | Bronchitis | [facility] | + + + + | 2017-08-07 00:00 | Bronchitis | [facility] | + + + + | 2017-08-07 00:00 | Bronchitis | [facility] | + + + + | 2017-08-07 00:00 | Bronchitis | [facility] | + + + + | 2017-08-07 00:00 | Bronchitis | [facility] | + + + + | 2017-09-07 00:00 | Paronychia of finger of [facility] | | | right hand | | + + + + | 2017-09-07 00:00 | Paronychia of finger of [facility] | | | right hand | | + + + + | 2017-09-07 00:00 | Paronychia of finger of [facility] | | | right hand | | + + + + | 2017-09-07 00:00 | Paronychia of finger of [facility] | | | right hand | | + + + + | 2017-09-07 00:00 | Paronychia of finger of [facility] | | | right hand | | + + + + | 2017-09-07 00:00 | Paronychia of finger of [facility] | | | right hand | | + + + + | 2017-09-07 00:00 | Paronychia of finger of [facility] | | | right hand | | + + + + | 2017-09-07 00:00 | Paronychia of finger of [facility] | | | right hand | | + + + + | 2017-09-07 00:00 | Paronychia of finger of | [facility] | | | right hand | | + + + + | 2017-09-28 00:00 | Upper respiratory tract | [facility] | | | infection | | + + + + | 2017-09-28 00:00 | Upper respiratory tract | [facility] | | | infection | | + + + + | 2017-09-28 00:00 | Upper respiratory tract | [facility] | | | infection | | + + + + | 2017-09-28 00:00 | Upper respiratory tract | [facility] | | | infection | | + + + + | 2017-09-28 00:00 | Upper respiratory tract | [facility] | | | infection | | + + + + | 2017-09-28 00:00 | Upper respiratory tract | [facility] | | | infection | | + + + + | 2017-09-28 00:00 | Upper respiratory tract | [facility] | | | infection | | + + + + | 2017-09-28 00:00 | Upper respiratory tract | [facility] | | | infection | | + + + + | 2017-09-28 00:00 | Upper respiratory tract | [facility] | | | infection | | + + + + | 2019-01-27 00:00 | Cellulitis of lower | [facility] | | | extremity | | + + + + | 2019-01-27 00:00 | Cellulitis of lower | [facility] | | | extremity | | + + + + | 2019-01-27 00:00 | Cellulitis of lower | [facility] | | | extremity | | + + + + | 2019-01-27 00:00 | Cellulitis of lower | [facility] | | | extremity | | + + + + | 2019-01-27 00:00 | Cellulitis of lower | [facility] | | | extremity | | + + + + | 2019-01-27 00:00 | Cellulitis of lower | [facility] | | | extremity | | + + + + | 2019-01-27 00:00 | Cellulitis of lower | [facility] | | | extremity | | + + + + | 2019-01-27 00:00 | Cellulitis of lower | [facility] | | | extremity | | + + + + | 2019-01-27 00:00 | Cellulitis of lower | [facility] | | | extremity | | + + + + | 2020-01-23 00:00 | Gout | [facility] | + + + + | 2020-01-23 00:00 | Gout | [facility] | + + + + | 2020-01-23 00:00 | Gout | [facility] | + + + + | 2020-01-23 00:00 | Gout | [facility] | + + + + | 2020-01-23 00:00 | Gout | [facility] | + + + + | 2020-01-23 00:00 | Gout | [facility] | + + + + | 2020-01-23 00:00 | Gout | [facility] | + + + + | 2020-01-23 00:00 | Gout | [facility] | + + + + | 2020-01-23 00:00 | Gout | [facility] | + + + + | 2020-05-09 00:00 | Rectal fissure | [facility] | + + + + | 2020-05-09 00:00 | Rectal fissure | [facility] | + + + + | 2020-05-09 00:00 | Rectal fissure | [facility] | + + + + | 2020-05-09 00:00 | Rectal fissure | [facility] | + + + + | 2020-05-09 00:00 | Rectal fissure | [facility] | + + + + | 2020-05-09 00:00 | Rectal fissure | [facility] | + + + + | 2020-05-09 00:00 | Rectal fissure | [facility] | + + + + | 2020-05-09 00:00 | Rectal fissure | [facility] | + + + + 2020-05-09 00:00 | Rectal fissure | [facility] | + + + + | 2020-07-15 00:00 | Cannabis abuse | [facility] | + + + + | 2020-07-15 00:00 | Cannabis abuse | [facility] | + + + + | 2020-07-15 00:00 | Cannabis abuse | [facility] | + + + + | 2020-07-15 00:00 | Cannabis abuse | [facility] | + + + + 2020-07-15 00:00 | Cannabis abuse | [facility] | + + + + | 2020-07-15 00:00 | Cannabis abuse | [facility] | + + + + | 2020-07-15 00:00 | Cannabis abuse | [facility] | + + + + | 2020-07-15 00:00 | Cannabis abuse | [facility] | + + + + | 2020-07-15 00:00 | Cannabis abuse | [facility] | + + + + 2020-07-15 00:00 | Acute kidney injury | [facility] | + + + + 2020-07-15 00:00 | Acute kidney injury | [facility] | + + + + | 2020-07-15 00:00 | Acute kidney injury | [facility] | + + + + | 2020-07-15 00:00 | Acute kidney injury | [facility] | + + + + | 2020-07-15 00:00 | Acute kidney injury | [facility] | + + + + 2020-07-15 00:00 | Acute kidney injury | [facility] | + + + + 2020-07-15 00:00 | Acute kidney injury | [facility] | + + + + | 2020-07-15 00:00 | Acute kidney injury | [facility] | + + + + | 2020-07-15 00:00 | Acute kidney injury | [facility] | + + + + | 2020-07-15 00:00 | Elevated transaminase | [facility] | | | measurement | | + + + + | 2020-07-15 00:00 | Elevated transaminase | [facility] | | | measurement | | + + + + | 2020-07-15 00:00 | Elevated transaminase | [facility] | | | measurement | | + + + + | 2020-07-15 00:00 | Elevated transaminase | [facility] | | | measurement | | + + + + | 2020-07-15 00:00 | Elevated transaminase | [facility] | | | measurement | | + + + + | 2020-07-15 00:00 | Elevated transaminase | [facility] | | | measurement | | + + + + | 2020-07-15 00:00 | [facility]ase [facility] | | measurement | | + + + + | 2020-07-15 00:00 | Elevated transaminase | [facility] | | | measurement | | + + + + | 2020-07-15 00:00 | Elevated transaminase | [facility] | | | measurement | | + + + + | 2020-07-15 00:00 | Abrasion of left cornea | [facility] | + + + + 2020-07-15 00:00 | Abrasion of left cornea | [facility] | + + + + | 2020-07-15 00:00 | Abrasion of left cornea | [facility] | + + + + | 2020-07-15 00:00 | Abrasion of left cornea | [facility] | + + + + | 2020-07-15 00:00 | Abrasion of left cornea | [facility] | + + + + | 2020-07-15 00:00 | Abrasion of left cornea | [facility] | + + + + | 2020-07-15 00:00 | Abrasion of left cornea | [facility] | + + + + | 2020-07-15 00:00 | Abrasion of left cornea | [facility] | + + + + | 2020-07-15 00:00 | Abrasion of left cornea | [facility] | + + + + | 2020-09-17 00:00 | 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[facility] | + + + + | 2020-09-17 00:00 | 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[facility] | + + + + | 2020-09-17 00:00 | 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[facility] | + + + + | 2020-09-17 00:00 | 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[facility] | + + + + | 2020-09-17 00:00 | 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[facility] | + + + + | 2020-09-17 00:00 | 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[facility] | + + + + | 2020-09-17 00:00 | 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[facility] | + + + + | 2020-09-17 00:00 | 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[facility] | + + + + | 2020-09-17 00:00 | 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[facility] | + + + + | 2020-11-13 00:00 | Drug use | [facility] | + + + + | 2020-11-13 00:00 | Drug use | [facility] | + + + + | 2020-11-13 00:00 | Drug use | [facility] | + + + + | 2020-11-13 00:00 | Drug use | [facility] | + + + + | 2020-11-13 00:00 | Drug use | [facility] | + + + + | 2020-11-13 00:00 | Drug use | [facility] | + + + + | 2020-11-13 00:00 | Drug use | [facility] | + + + + | 2020-11-13 00:00 | Drug use | [facility] | + + + + | 2020-11-13 00:00 | Drug use | [facility] | + + + + | 2020-12-15 00:00 | Vertigo | [facility] | + + + + | 2020-12-15 00:00 | Vertigo | [facility] | + + + + | 2020-12-15 00:00 | Vertigo | [facility] | + + + + | 2020-12-15 00:00 | Vertigo | [facility] | + + + + | 2020-12-15 00:00 | Vertigo | [facility] | + + + + | 2020-12-15 00:00 | Vertigo | [facility] | + + + + | 2020-12-15 00:00 | Vertigo | [facility] | + + + + | 2020-12-15 00:00 | Vertigo | [facility] | + + + + | 2020-12-15 00:00 | Vertigo | [facility] | + + + + | 2021-02-08 00:00 | Eczema of both hands | [facility] | + + + + | 2021-02-08 00:00 | Eczema of both hands | [facility] | + + + + | 2021-02-08 00:00 | Eczema of both hands | [facility] | + + + + | 2021-02-08 00:00 | Eczema of both hands | [facility] | + + + + | 2021-02-08 00:00 | Eczema of both hands | [facility] | + + + + | 2021-02-08 00:00 | Eczema of both hands | [facility] | + + + + | 2021-02-08 00:00 | Eczema of both hands | [facility] | + + + + | 2021-02-08 00:00 | Eczema of both hands | [facility] | + + + + | 2021-02-08 00:00 | Eczema of both hands | [facility] | + + + + | 2021-04-03 00:00 | Dehydration | [facility] | + + + + | 2021-04-03 00:00 | Dehydration | [facility] | + + + + | 2021-04-03 00:00 | Dehydration | [facility] | + + + + | 2021-04-03 00:00 | Dehydration | [facility] | + + + + | 2021-04-03 00:00 | Dehydration | [facility] | + + + + | 2021-04-03 00:00 | Dehydration | [facility] | + + + + | 2021-04-03 00:00 | Dehydration | [facility] | + + + + | 2021-04-03 00:00 | Dehydration | [facility] | + + + + | 2021-04-03 00:00 | Dehydration | [facility] | + + + + | 2021-04-03 00:00 | Enteritis | [facility] | + + + + | 2021-04-03 00:00 | Enteritis | [facility] | + + + + | 2021-04-03 00:00 | Enteritis | [facility] | + + + + | 2021-04-03 00:00 | Enteritis | [facility] | + + + + | 2021-04-03 00:00 | Enteritis | [facility] | + + + + | 2021-04-03 00:00 | Enteritis | [facility] | + + + + | 2021-04-03 00:00 | Enteritis | [facility] | + + + + | 2021-04-03 00:00 | Enteritis | [facility] | + + + + | 2021-04-03 00:00 | Enteritis | [facility] | + + + + | 2021 00:00 | Parasite not detected | [facility] | + + + + | 2021 00:00 | Parasite not detected | [facility] | + + + + | 2021 00:00 | Parasite not detected | [facility] | + + + + | 2021 00:00 | Parasite not detected | [facility] | + + + + | 2021 00:00 | Parasite not detected | [facility] | + + + + | 2021 00:00 | Parasite not detected | [facility] | + + + + | 2021 00:00 | Parasite not detected | [facility] | + + + + | 2021 00:00 | Parasite not detected | [facility] | + + + + | 2021 00:00 | Parasite not detected | [facility] | + + + + | 2021 00:00 | Pain of hand | [facility] | + + + + | 2021 00:00 | Pain of hand | [facility] | + + + + | 2021 00:00 | Pain of hand | [facility] | + + + + | 2021 00:00 | Pain of hand | [facility] | + + + + | 2021 00:00 | Pain of hand | [facility] | + + + + | 2021 00:00 | Pain of hand | [facility] | + + + + | 2021 00:00 | Pain of hand | [facility] | + + + + | 2021 00:00 | Pain of hand | [facility] | + + + + | 2021 00:00 | Pain of hand | [facility] | + + + + | 2021-05-18 00:00 | Viral infection | [facility] | + + + + | 2021-05-18 00:00 | Viral infection | [facility] | + + + + | 2021-05-18 00:00 | Viral infection | [facility] | + + + + | 2021-05-18 00:00 | Viral infection | [facility] | + + + + | 2021-05-18 00:00 | Viral infection | [facility] | + + + + | 2021-05-18 00:00 | Viral infection | [facility] | + + + + | 2021-05-18 00:00 | Viral infection | [facility] | + + + + | 2021-05-18 00:00 | Viral infection | [facility] | + + + + | 2021-05-18 00:00 | Viral infection | [facility] | + + + + | 2021-07-02 00:00 | Acute bronchitis | [facility] | + + + + | 2021-07-02 00:00 | Acute bronchitis | [facility] | + + + + | 2021-07-02 00:00 | Acute bronchitis | [facility] | + + + + | 2021-07-02 00:00 | Acute bronchitis | [facility] | + + + + | 2021-07-02 00:00 | Acute bronchitis | [facility] | + + + + | 2021-07-02 00:00 | Acute bronchitis | [facility] | + + + + | 2021-07-02 00:00 | Acute bronchitis | [facility] | + + + + | 2021-07-02 00:00 | Acute bronchitis | [facility] | + + + + | 2021-07-02 00:00 | Acute bronchitis | [facility] | + + + + | 2021-07-13 00:00 | Dizziness | [facility] | + + + + | 2021-07-13 00:00 | Dizziness | [facility] | + + + + | 2021-07-13 00:00 | Dizziness | [facility] | + + + + | 2021-07-13 00:00 | Dizziness | [facility] | + + + + | 2021-07-13 00:00 | Dizziness | [facility] | + + + + | 2021-07-13 00:00 | Dizziness | [facility] | + + + + | 2021-07-13 00:00 | Dizziness | [facility] | + + + + | 2021-07-13 00:00 | Dizziness | [facility] | + + + + | 2021-07-13 00:00 | Dizziness | [facility] | + + + + | 2021-08-27 00:00 | Schizoaffective disorder | [facility] | + + + + | 2021-08-27 00:00 | Schizoaffective disorder | [facility] | + + + + | 2021-08-27 00:00 | Schizoaffective disorder | [facility] | + + + + | 2021-08-27 00:00 | Schizoaffective disorder | [facility] | + + + + | 2021-08-27 00:00 | Schizoaffective disorder | [facility] | + + + + | 2021-08-27 00:00 | Schizoaffective disorder | [facility] | + + + + | 2021-08-27 00:00 | Schizoaffective disorder | [facility] | + + + + | 2021-08-27 00:00 | Schizoaffective disorder | [facility] | + + + + | 2021-08-27 00:00 | Schizoaffective disorder | [facility] | + + + + | 2021-08-27 00:00 | Stomatitis | [facility] | + + + + | 2021-08-27 00:00 | Stomatitis | [facility] | + + + + | 2021-08-27 00:00 | Stomatitis | [facility] | + + + + | 2021-08-27 00:00 | Stomatitis | [facility] | + + + + | 2021-08-27 00:00 | Stomatitis | [facility] | + + + + | 2021-08-27 00:00 | Stomatitis | [facility] | + + + + | 2021-08-27 00:00 | Stomatitis | [facility] | + + + + | 2021-08-27 00:00 | Stomatitis | [facility] | + + + + | 2021-08-27 00:00 | Stomatitis | [facility] | + + + + | 2021-09-22 00:00 | Vomiting | [facility] | + + + + | 2021-09-22 00:00 | Vomiting | [facility] | + + + + | 2021-09-22 00:00 | Vomiting | [facility] | + + + + | 2021-09-22 00:00 | Vomiting | [facility] | + + + + | 2021-09-22 00:00 | Vomiting | [facility] | + + + + | 2021-09-22 00:00 | Vomiting | [facility] | + + + + | 2021-09-22 00:00 | Vomiting | [facility] | + + + + | 2021-09-22 00:00 | Vomiting | [facility] | + + + + | 2021-09-22 00:00 | Vomiting | [facility] | + + + + | 2021-11-12 00:00 | Pneumonia | [facility] | + + + + | 2021-11-12 00:00 | Pneumonia | [facility] | + + + + | 2021-11-12 00:00 | Pneumonia |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 (missing) | (missing) | | (unavailable | 19:23 | [facility] | | | + + + + + + + + + | Result panel 70 | + + + + + + + + + | | 2022-01-28 | [facility] | NEGATIVE | (missing) | (missing) | | (unavailable | 19:23 | [facility] | | | + + + + + + + + + | Result panel 71 | + + + + + + + + + | | 2022-01-28 | [facility] | NEGATIVE | (missing) | (missing) | | (unavailable | 19:23 | [facility] | | | + + + + + + + + + | Result panel 72 | + + + + + + + + + | | 2022-01-28 | [facility] | NEGATIVE | (missing) | (missing) | | (unavailable | 19:23 | [facility] | | | + + + + + + + + + | Result panel 73 | + + + + + + + + + | | 2022-01-28 | [facility] | NEGATIVE | (missing) | (missing) | | (unavailable | 19:23 | [facility] | | | + + + + + + + + + | Result panel 74 | + + + + + + + + + | | 2022-01-28 | [facility] | NEGATIVE | (missing) | (missing) | | (unavailable | 19:23 | [facility] | | | + + + + + + + + + | Result panel 75 | + + + + + + + + + | | 2022-01-28 | [facility] | NEGATIVE | (missing) | (missing) | | (unavailable | 19:23 | [facility] | | | + + + + + + + + + | Result panel 76 | + + + + + + + + + | | 2022-01-28 | [facility] | NEGATIVE | (missing) | (missing) | | (unavailable | 19:23 | [facility] | | | + + + + + + + + + | Result panel 77 | + + + + + + + + + | | 2022-01-28 | [facility] | NEGATIVE | (missing) | (missing) | | (unavailable | 19:23 | [facility] | | | + + + + + + + + + | Result panel 78 | + + + + + + + + + | | 2022-01-28 | [facility] | NEGATIVE | (missing) | (missing) | | (unavailable | 19:23 | [facility] | | | + + + + + + + + + | Result panel 79 | + + + + + + + + + | | 2022-01-28 | [facility] | NEGATIVE | (missing) | (missing) | | (unavailable | 19:23 | [facility] | | | + + + + + + + + + | Result panel 80 | + + + + + + + + + | | 2022-01-28 | [facility] | NEGATIVE | (missing) | (missing) | | (unavailable | 19:23 | [facility] | | | + + + + + + + + + | Result panel 81 | + + + + + + + + + | | 2022-01-28 | [facility] | NEGATIVE | (missing) | (missing) | | (unavailable | 19:23 | [facility] | | | + + + + + + + + + | Result panel 82 | + + + + + +-------+ + + | | 2022-01-28 | [facility] | 5.5 | (missing) | (missing) | | (unavailable | 19:40 | [facility] | | | + + + +-------+ + + + + | Result panel 83 | + + + + + + + + + | | 2022-01-28 | [facility] | NEGATIVE | (missing) | (missing) | | (unavailable | 19:40 | [facility] | | | + + + + + + + + + | Result panel 84 | + + + + + +-------+ + + | | 2022-01-28 | [facility] | 1.0 | (missing) | (missing) | | (unavailable | 19:40 | [facility] | | | + + + +-------+ + + + + | Result panel 85 | + + + + + + + + + | | 2022-01-28 | [facility] | NEGATIVE | (missing) | (missing) | | (unavailable | 19:40 | [facility] | | | | + + + + + + + + + | Result panel 86 | + + + + + + + + + | | 2022-01-28 | [facility] | NEGATIVE | (missing) | (missing) | | (unavailable | 19:40 | [facility] | | | + + + + + + + + + | Result panel 87 | + + + + + + + + + | | 2022-01-28 | [facility] | CLEAN CATCH | (missing) | (missing) | | (unavailable | 19:40 | [facility] | | | + + + + + + + + + | Result panel 88 | + + + + + +------+ + + | | 2022-01-28 | [facility] | 47 | (missing) | (missing) | | (unavailable | 19:40 | [facility] | | | | + + + +------+ + + + + | Result panel 89 | + + + + + + + + + | | 2022-01-28 | [facility] | YELLOW | (missing) | (missing) | | (unavailable | 19:40 | [facility] | | | + + + + + + + + + | Result panel 90 | + + + + + +---------+ + + | | 2022-01-28 | [facility] | CLEAR | (missing) | (missing) | | (unavailable | 19:40 | [facility] | | | + + + +---------+ + + + + | Result panel 91 | + + + + + + + + + | | 2022-01-28 | [facility] | NEGATIVE | (missing) | (missing) | | (unavailable | 19:40 | [facility] | | | + + + + + + + + + | Result panel 92 | + + + + + + + + + | | 2022-01-28 | [facility] | NEGATIVE | (missing) | (missing) | | (unavailable | 19:40 | [facility] | | | + + + + + + + + + | Result panel 93 | + + + + + + + + + | | 2022-01-28 | [facility] | NEGATIVE | (missing) | (missing) | | (unavailable | 19:40 | [facility] | | | + + + + + + + + + | Result panel 94 | + + + + + + + + + | | 2022-01-28 | [facility] | >=1.030 | (missing) | (missing) | | (unavailable | 19:40 | [facility] | | | + + + + + + + + + | Result panel 95 | + + + + + + + + + | | 2022-01-28 | [facility] | NEGATIVE | (missing) | (missing) | | (unavailable | 19:40 | [facility] | | | + + + + + + + + + | Result panel 96 | + + + + + +-------+ + + | | 2022-01-28 | [facility] | 5.5 | (missing) | (missing) | | (unavailable | 19:40 | [facility] | | | | + + + +-------+ + + + + | Result panel 97 | + + + + + + + + + | | 2022-01-28 | [facility] | NEGATIVE | (missing) | (missing) | | (unavailable | 19:40 | [facility] | | | + + + + + + + + + | Result panel 98 | + + + + + +-------+ + + | | 2022-01-28 | [facility] | 1.0 | (missing) | (missing) | | (unavailable | 19:40 | [facility] | | | + + + +-------+ + + + + | Result panel 99 | + + + + + + + + + | | 2022-01-28 | [facility] | NEGATIVE | (missing) | (missing) | | (unavailable | 19:40 | [facility] | | | + + + + + + + + + | Result panel 100 | + + + + + + + + + | | 2022-01-28 | [facility] | NEGATIVE | (missing) | (missing) | | (unavailable | 19:40 | [facility] | | | + + + + + + + + + | Result panel 101 | + + + + + + + + + | | 2022-01-28 | [facility] | CLEAN CATCH | (missing) | (missing) | | (unavailable | 19:40 | [facility] | | | + + + + + + + + + | Result panel 102 | + + + + + +-------+ + + | | 2022-01-28 | [facility] | 9.8 | (missing) | (missing) | | (unavailable | 19:40 | [facility] | | | + + + +-------+ + + + + | Result panel 103 | + + + + + +--------+ + + | | 2022-01-28 | [facility] | 3.35 | (missing) | (missing) | | (unavailable | 19:40 | [facility] | | | + + + +--------+ + + + + | Result panel 104 | + + + + + +--------+ + + | | 2022-01-28 | [facility] | 10.1 | (missing) | (missing) | | (unavailable | 19:40 | [facility] | | | + + + +--------+ + + + + | Result panel 105 | + + + + + +--------+ + + | | 2022-01-28 | [facility] | 31.5 | (missing) | (missing) | | (unavailable | 19:40 [facility] | | | + + + +--------+ + + + + | Result panel 106 | + + + + + +--------+ + + | | 2022-01-28 | [facility] | 94.1 | (missing) | (missing) | | (unavailable | 19:40 [facility] | | | + + + +--------+ + + + + | Result panel 107 | + + + + + +--------+ + + | | 2022-01-28 | [facility] | 30.3 | (missing) | (missing) | | (unavailable | 19:40 | [facility] | | | + + + +--------+ + + + + | Result panel 108 | + + + + + +--------+ + + | | 2022-01-28 | [facility] | 32.2 | (missing) | (missing) | | (unavailable | 19:40 | [facility] | | | + + + +--------+ + + + + | Result panel 109 | + + + + + +--------+ + + | | 2022-01-28 | [facility] | 15.2 | (missing) | (missing) | | (unavailable | 19:40 | [facility] | | | + + + +--------+ + + + + | Result panel 110 | + + + + + +-------+ + + | | 2022-01-28 | [facility] | 340 | (missing) | (missing) | | (unavailable | 19:40 [facility] | | | + + + +-------+ + + + + | Result panel 111 | + + + + + +--------+ + + | | 2022-01-28 | [facility] | 77.3 | (missing) | (missing) | | (unavailable | 19:40 [facility] | | | + + + +--------+ + + + + | Result panel 112 | + + + + + +-------+ + + | | 2022-01-28 | [facility] | 8.8 | (missing) | (missing) | | (unavailable | 19:40 [facility] | | | + + + +-------+ + + + + | Result panel 113 | + + + + + +--------+ + + | | 2022-01-28 | [facility] | 11.8 | (missing) | (missing) | | (unavailable | 19:40 | [facility] | | | + + + +--------+ + + + + | Result panel 114 | + + + + + +-------+ + + | | 2022-01-28 | [facility] | 1.6 | (missing) | (missing) | | (unavailable | 19:40 | [facility] | | | + + + +-------+ + + + + | Result panel 115 | + + + + + +-------+ + + | | 2022-01-28 | [facility] | 0.5 | (missing) | (missing) | | (unavailable | 19:40 [facility] | | | + + + +-------+ + + + + | Result panel 116 | + + + + + +------+ + + | | 2022-01-28 | [facility] | 47 | (missing) | (missing) | | (unavailable | 19:40 | [facility] | | | + + + +------+ + + + + | Result panel 117 | + + + + + + + + + | | 2022-01-28 | [facility] | YELLOW | (missing) | (missing) | | (unavailable | 19:40 [facility] | | | + + + + + + + + + | Result panel 118 | + + + + + +---------+ + + | | 2022-01-28 | [facility] | CLEAR | (missing) | (missing) | | (unavailable | 19:40 | [facility] | | | + + + +---------+ + + + + | Result panel 119 | + + + + + + + + + | | 2022-01-28 | [facility] | NEGATIVE | (missing) | (missing) | | (unavailable | 19:40 [facility] | | | + + + + + + + + + | Result panel 120 | + + + + + + + + + | | 2022-01-28 | [facility] | NEGATIVE | (missing) | (missing) | | (unavailable | 19:40 [facility] | | | + + + + + + + + + | Result panel 121 | + + + + + + + + + | | 2022-01-28 | [facility] | NEGATIVE | (missing) | (missing) | | (unavailable | 19:40 | [facility] | | | + + + + + + + + + | Result panel 122 | + + + + + + + + + | | 2022-01-28 | [facility] | >=1.030 | (missing) | (missing) | | (unavailable | 19:40 | [facility] | | | + + + + + + + + + | Result panel 123 | + + + + + + + + + | | 2022-01-28 | [facility] | NEGATIVE | (missing) | (missing) | | (unavailable | 19:40 | [facility] | | | + + + + + + + + + | Result panel 124 | + + + + + +-------+ + + | | 2022-01-28 | [facility] | 5.5 | (missing) | (missing) | | (unavailable | 19:40 | [facility] | | | + + + +-------+ + + + + | Result panel 125 | + + + + + + + + + | | 2022-01-28 | [facility] | NEGATIVE | (missing) | (missing) | | (unavailable | 19:40 [facility] | | | + + + + + + + + + | Result panel 126 | + + + + + +-------+ + + | | 2022-01-28 | [facility] | 1.0 | (missing) | (missing) | | (unavailable | 19:40 | [facility] | | | + + + +-------+ + + + + | Result panel 127 | + + + + + + + + + | | 2022-01-28 | [facility] | NEGATIVE | (missing) | (missing) | | (unavailable | 19:40 [facility] | | | + + + + + + + + + | Result panel 128 | + + + + + + + + + | | 2022-01-28 | [facility] | NEGATIVE | (missing) | (missing) | | (unavailable | 19:40 [facility] | | | + + + + + + + + + | Result panel 129 | + + + + + + + + + | | 2022-01-28 | [facility] | CLEAN CATCH | (missing) | (missing) | | (unavailable | 19:40 | [facility] | | | | + + + + + + + + + | Result panel 130 | + + + + + +-------+ + + | | 2022-01-28 | [facility] | 6.0 | (missing) | (missing) | | (unavailable | 19:40 [facility] | | | + + + +-------+ + + + + | Result panel 131 | + + + + + +-------+ + + | | 2022-01-28 | [facility] | 2.3 | (missing) | (missing) | | (unavailable | 19:40 [facility] | | | + + + +-------+ + + + + | Result panel 132 | + + + + + +-------+ + + | | 2022-01-28 | [facility] | 3.7 | (missing) | (missing) | | (unavailable | 19:40 [facility] | | | + + + +-------+ + + + + | Result panel 133 | + + + + + +--------+ + + | | 2022-01-28 | [facility] | 0.62 | (missing) | (missing) | | (unavailable | 19:40 | [facility] | | | + + + +--------+ + + + + | Result panel 134 | + + + + + +-------+ + + | | 2022-01-28 | [facility] | 0.3 | (missing) | (missing) | | (unavailable | 19:40 [facility] | | | + + + +-------+ + + + + | Result panel 135 | + + + + + +------+ + + | | 2022-01-28 | [facility] | 47 | (missing) | (missing) | | (unavailable | 19:40 | [facility] | | | + + + +------+ + + + + | Result panel 136 | + + + + + +------+ + + | | 2022-01-28 | [facility] | 48 | (missing) | (missing) | | (unavailable | 19:40 [facility] | | | + + + +------+ + + + + | Result panel 137 | + + + + + +-------+ + + | | 2022-01-28 | [facility] | 181 | (missing) | (missing) | | (unavailable | 19:40 [facility] | | | + + + +-------+ + + + + | Result panel 138 | + + + + + + + + + | | 2022-01-28 | [facility] | NEGATIVE | (missing) | (missing) | | (unavailable | 19:40 [facility] | | | + + + + + + + + + | Result panel 139 | + + + + + + + + + | | 2022-01-28 | [facility] | POSITIVE | (missing) | (missing) | | (unavailable | 19:40 [facility] | | | + + + + + + + + + | Result panel 140 | + + + + + + + + + | | 2022-01-28 | [facility] | NEGATIVE | (missing) | (missing) | | (unavailable | 19:40 | [facility] | | | | + + + + + + + + + | Result panel 141 | + + + + + + + + + | | 2022-01-28 | [facility] | NEGATIVE | (missing) | (missing) | | (unavailable | 19:40 | [facility] | | | | + + + + + + + + + | Result panel 142 | + + + + + + + + + | | 2022-01-28 | [facility] | NEGATIVE | (missing) | (missing) | | (unavailable | 19:40 | [facility] | | | | + + + + + + + + + | Result panel 143 | + + + + + + + + + | | 2022-01-28 | [facility] | NEGATIVE | (missing) | (missing) | | (unavailable | 19:40 [facility] | | | + + + + + + + + + | Result panel 144 | + + + + + + + + + | | 2022-01-28 | [facility] | NEGATIVE | (missing) | (missing) | | (unavailable | 19:40 [facility] | | | + + + + + + + + + | Result panel 145 | + + + + + + + + + | | 2022-01-28 | [facility] | NEGATIVE | (missing) | (missing) | | (unavailable | 19:40 [facility] | | | | + + + + + + + + + | Result panel 146 | + + + + + + + + + | | 2022-01-28 | [facility] | NEGATIVE | (missing) | (missing) | | (unavailable | 19:40 [facility] | | | | + + + + + + + + + | Result panel 147 | + + + + + + + + + | | 2022-01-28 | [facility] | POSITIVE | (missing) | (missing) | | (unavailable | 19:40 [facility] | | | | + + + + + + + + + | Result panel 148 | + + + + + + + + + | | 2022-01-28 | [facility] | NEGATIVE | (missing) | (missing) | | (unavailable | 19:40 [facility] | | | | + + + + + + + + + | Result panel 149 | + + + + + + + + + | | 2022-01-28 | [facility] | NEGATIVE | (missing) | (missing) | | (unavailable | 19:40 [facility] | | | | + + + + + + + + + | Result panel 150 | + + + + + + + + + | | 2022-01-28 | [facility] | NEGATIVE | (missing) | (missing) | | (unavailable | 19:40 [facility] | | | | + + + + + + + + + | Result panel 151 | + + + + + +-------+ + + | | 2022-01-28 | [facility] | 9.8 | (missing) | (missing) | | (unavailable | 19:40 [facility] | | | + + + +-------+ + + + + | Result panel 152 | + + + + + +--------+ + + | | 2022-01-28 | [facility] | 3.35 | (missing) | (missing) | | (unavailable | 19:40 [facility] | | | + + + +--------+ + + + + | Result panel 153 | + + + + + +--------+ + + | | 2022-01-28 | [facility] | 10.1 | (missing) | (missing) | | (unavailable | 19:40 [facility] | | | + + + +--------+ + + + + | Result panel 154 | + + + + + +--------+ + + | | 2022-01-28 | [facility] | 31.5 | (missing) | (missing) | | (unavailable | 19:40 [facility] | | | + + + +--------+ + + + + | Result panel 155 | + + + + + +--------+ + + | | 2022-01-28 | [facility] | 94.1 | (missing) | (missing) | | (unavailable | 19:40 [facility] | | | + + + +--------+ + + + + | Result panel 156 | + + + + + +--------+ + + | | 2022-01-28 | [facility] | 30.3 | (missing) | (missing) | | (unavailable | 19:40 [facility] | | | | + + + +--------+ + + + + | Result panel 157 | + + + + + +--------+ + + | | 2022-01-28 | [facility] | 32.2 | (missing) | (missing) | | (unavailable | 19:40 [facility] | | | + + + +--------+ + + + + | Result panel 158 | + + + + + +--------+ + + | | 2022-01-28 | [facility] | 15.2 | (missing) | (missing) | | (unavailable | 19:40 [facility] | | | | + + + +--------+ + + + + | Result panel 159 | + + + + + +-------+ + + | | 2022-01-28 | [facility] | 340 | (missing) | (missing) | | (unavailable | 19:40 [facility] | | | + + + +-------+ + + + + | Result panel 160 | + + + + + +--------+ + + | | 2022-01-28 | [facility] | 77.3 | (missing) | (missing) | | (unavailable | 19:40 [facility] | | | | + + + +--------+ + + + + | Result panel 161 | + + + + + +-------+ + + | | 2022-01-28 | [facility] | 8.8 | (missing) | (missing) | | (unavailable | 19:40 [facility] | | | | + + + +-------+ + + + + | Result panel 162 | + + + + + +--------+ + + | | 2022-01-28 | [facility] | 11.8 | (missing) | (missing) | | (unavailable | 19:40 [facility] | | | + + + +--------+ + + + + | Result panel 163 | + + + + + +-------+ + + | | 2022-01-28 | [facility] | 1.6 | (missing) | (missing) | | (unavailable | 19:40 [facility] | | | | + + + +-------+ + + + + | Result panel 164 | + + + + + +-------+ + + | | 2022-01-28 | [facility] | 0.5 | (missing) | (missing) | | (unavailable | 19:40 [facility] | | | | + + + +-------+ + + + + | Result panel 165 | + + + + + +------+ + + | | 2022-01-28 | [facility] | 47 | (missing) | (missing) | | (unavailable | 19:40 [facility] | | | | + + + +------+ + + + + | Result panel 166 | + + + + + + + + + | | 2022-01-28 | [facility] | YELLOW | (missing) | (missing) | | (unavailable | 19:40 [facility] | | | | + + + + + + + + + | Result panel 167 | + + + + + +---------+ + + | | 2022-01-28 | [facility] | CLEAR | (missing) | (missing) | | (unavailable | 19:40 [facility] | | | | + + + +---------+ + + + + | Result panel 168 | + + + + + + + + + | | 2022-01-28 | [facility] | NEGATIVE | (missing) | (missing) | | (unavailable | 19:40 [facility] | | | | + + + + + + + + + | Result panel 169 | + + + + + + + + + | | 2022-01-28 | [facility] | NEGATIVE | (missing) | (missing) | | (unavailable | 19:40 [facility] | | | | + + + + + + + + + | Result panel 170 | + + + + + + + + + | | 2022-01-28 | [facility] | NEGATIVE | (missing) | (missing) | | (unavailable | 19:40 [facility] | | | | + + + + + + + + + | Result panel 171 | + + + + + + + + + | | 2022-01-28 | [facility] | >=1.030 | (missing) | (missing) | | (unavailable | 19:40 | [facility] | | | | + + + + + + + + + | Result panel 172 | + + + + + + + + + | | 2022-01-28 | [facility] | NEGATIVE | (missing) | (missing) | | (unavailable | 19:40 | [facility] | | | | + + + + + + + + + | Result panel 173 | + + + + + +-------+ + + | | 2022-01-28 | [facility] | 5.5 | (missing) | (missing) | | (unavailable | 19:40 | [facility] | | | | + + + +-------+ + + + + | Result panel 174 | + + + + + + + + + | | 2022-01-28 | [facility] | NEGATIVE | (missing) | (missing) | | (unavailable | 19:40 | [facility] | | | | + + + + + + + + + | Result panel 175 | + + + + + +-------+ + + | | 2022-01-28 | [facility] | 1.0 | (missing) | (missing) | | (unavailable | 19:40 | [facility] | | | | + + + +-------+ + + + + | Result panel 176 | + + + + + + + + + | | 2022-01-28 | [facility] | NEGATIVE | (missing) | (missing) | | (unavailable | 19:40 | [facility] | | | | + + + + + + + + + | Result panel 177 | + + + + + + + + + | | 2022-01-28 | [facility] | NEGATIVE | (missing) | (missing) | | (unavailable | 19:40 | [facility] | | | | + + + + + + + + + | Result panel 178 | + + + + + + + + + | | 2022-01-28 | [facility] | CLEAN CATCH | (missing) | (missing) | | (unavailable | 19:40 | [facility] | | | | + + + + + + + + + | Result panel 179 | + + + + + +-------+ + + | | 2022-01-28 | [facility] | 6.0 | (missing) | (missing) | | (unavailable | 19:40 | [facility] | | | | + + + +-------+ + + + + | Result panel 180 | + + + + + +-------+ + + | | 2022-01-28 | [facility] | 2.3 | (missing) | (missing) | | (unavailable | 19:40 | [facility] | | | | + + + +-------+ + + + + | Result panel 181 | + + + + + +-------+ + + | | 2022-01-28 | [facility] | 3.7 | (missing) | (missing) | | (unavailable | 19:40 | [facility] | | | | + + + +-------+ + + + + | Result panel 182 | + + + + + +--------+ + + | | 2022-01-28 | [facility] | 0.62 | (missing) | (missing) | | (unavailable | 19:40 | [facility] | | | | + + + +--------+ + + + + | Result panel 183 | + + + + + +-------+ + + | | 2022-01-28 | [facility] | 0.3 | (missing) | (missing) | | (unavailable | 19:40 | [facility] | | | | + + + +-------+ + + + + | Result panel 184 | + + + + + +------+ + + | | 2022-01-28 | [facility] | 47 | (missing) | (missing) | | (unavailable | 19:40 | [facility] | | | | + + + +------+ + + + + | Result panel 185 | + + + + + +------+ + + | | 2022-01-28 | [facility] | 48 | (missing) | (missing) | | (unavailable | 19:40 | [facility] | | | | + + + +------+ + + + + | Result panel 186 | + + + + + +-------+ + + | | 2022-01-28 | [facility] | 181 | (missing) | (missing) | | (unavailable | 19:40 | [facility] | | | | + + + +-------+ + + + + | Result panel 187 | + + + + + + + + + | | 2022-01-28 | [facility] | NEGATIVE | (missing) | (missing) | | (unavailable | 19:40 | [facility] | | | | + + + + + + + + + | Result panel 188 | + + + + + + + + + | | 2022-01-28 | [facility] | POSITIVE | (missing) | (missing) | | (unavailable | 19:40 | [facility] | | | | + + + + + + + + + | Result panel 189 | + + + + + + + + + | | 2022-01-28 | [facility] | NEGATIVE | (missing) | (missing) | | (unavailable | 19:40 | [facility] | | | | + + + + + + + + + | Result panel 190 | + + + + + + + + + | | 2022-01-28 | [facility] | NEGATIVE | (missing) | (missing) | | (unavailable | 19:40 | [facility] | | | | + + + + + + + + + | Result panel 191 | + + + + + + + + + | | 2022-01-28 | [facility] | NEGATIVE | (missing) | (missing) | | (unavailable | 19:40 | [facility] | | | | + + + + + + + + + | Result panel 192 | + + + + + + + + + | | 2022-01-28 | [facility] | NEGATIVE | (missing) | (missing) | | (unavailable | 19:40 | [facility] | | | | | [facility] | | | | + + + + + + + + + | Result panel 193 | + + + + + + + + + | | 2022-01-28 | [facility] | NEGATIVE | (missing) | (missing) | | (unavailable | 19:40 | [facility] | | | | + + + + + + + + + | Result panel 194 | + + + + + + + + + | | 2022-01-28 | [facility] | NEGATIVE | (missing) | (missing) | | (unavailable | 19:40 | [facility] | | | | + + + + + + + + + | Result panel 195 | + + + + + + + + + | | 2022-01-28 | [facility] | NEGATIVE | (missing) | (missing) | | (unavailable | 19:40 [facility] | | | | + + + + + + + + + | Result panel 196 | + + + + + + + + + | | 2022-01-28 | [facility] | POSITIVE | (missing) | (missing) | | (unavailable | 19:40 [facility] | | | | + + + + + + + + + | Result panel 197 | + + + + + + + + + | | 2022-01-28 | [facility] | NEGATIVE | (missing) | (missing) | | (unavailable | 19:40 [facility] | | | | + + + + + + + + + | Result panel 198 | + + + + + + + + + | | 2022-01-28 | [facility] | NEGATIVE | (missing) | (missing) | | (unavailable | 19:40 [facility] | | | | + + + + + + + + + | Result panel 199 | + + + + + + + + + | | 2022-01-28 | [facility] | NEGATIVE | (missing) | (missing) | | (unavailable | 19:40 | [facility] | | | | + + + + + + + + + | Result panel 200 | + + + + + +-------+ + + | | 2022-01-28 | [facility] | 9.8 | (missing) | (missing) | | (unavailable | 19:40 | [facility] | | | | + + + +-------+ + + + + | Result panel 201 | + + + + + +--------+ + + | | 2022-01-28 | [facility] | 3.35 | (missing) | (missing) | | (unavailable | 19:40 | [facility] | | | | + + + +--------+ + + + + | Result panel 202 | + + + + + +--------+ + + | | 2022-01-28 | [facility] | 10.1 | (missing) | (missing) | | (unavailable | 19:40 [facility] | | | | + + + +--------+ + + + + | Result panel 203 | + + + + + +--------+ + + | | 2022-01-28 | [facility] | 31.5 | (missing) | (missing) | | (unavailable | 19:40 | [facility] | | | | + + + +--------+ + + + + | Result panel 204 | + + + + + +--------+ + + | | 2022-01-28 | [facility] | 94.1 | (missing) | (missing) | | (unavailable | 19:40 | [facility] | | | | + + + +--------+ + + + + | Result panel 205 | + + + + + +--------+ + + | | 2022-01-28 | [facility] | 30.3 | (missing) | (missing) | | (unavailable | 19:40 | [facility] | | | | + + + +--------+ + + + + | Result panel 206 | + + + + + +--------+ + + | | 2022-01-28 | [facility] | 32.2 | (missing) | (missing) | | (unavailable | 19:40 | [facility] | | | | + + + +--------+ + + + + | Result panel 207 | + + + + + +--------+ + + | | 2022-01-28 | [facility] | 15.2 | (missing) | (missing) | | (unavailable | 19:40 | [facility] | | | | + + + +--------+ + + + + | Result panel 208 | + + + + + +-------+ + + | | 2022-01-28 | [facility] | 340 | (missing) | (missing) | | (unavailable | 19:40 | [facility] | | | | + + + +-------+ + + + + | Result panel 209 | + + + + + +--------+ + + | | 2022-01-28 | [facility] | 77.3 | (missing) | (missing) | | (unavailable | 19:40 | [facility] | | | | + + + +--------+ + + + + | Result panel 210 | + + + + + +-------+ + + | | 2022-01-28 | [facility] | 8.8 | (missing) | (missing) | | (unavailable | 19:40 | [facility] | | | | + + + +-------+ + + + + | Result panel 211 | + + + + + +--------+ + + | | 2022-01-28 | [facility] | 11.8 | (missing) | (missing) | | (unavailable | 19:40 | [facility] | | | | + + + +--------+ + + + + | Result panel 212 | + + + + + +-------+ + + | | 2022-01-28 | [facility] | 1.6 | (missing) | (missing) | | (unavailable | 19:40 | [facility] | | | | + + + +-------+ + + + + | Result panel 213 | + + + + + +-------+ + + | | 2022-01-28 | [facility] | 0.5 | (missing) | (missing) | | (unavailable | 19:40 | [facility] | | | | + + + +-------+ + + + + | Result panel 214 | + + + + + +------+ + + | | 2022-01-28 | [facility] | 47 | (missing) | (missing) | | (unavailable | 19:40 | [facility] | | | | + + + +------+ + + + + | Result panel 215 | + + + + + + + + + | | 2022-01-28 | [facility] | YELLOW | (missing) | (missing) | | (unavailable | 19:40 | [facility] | | | | + + + + + + + + + | Result panel 216 | + + + + + +---------+ + + | | 2022-01-28 | [facility] | CLEAR | (missing) | (missing) | | (unavailable | 19:40 | [facility] | | | | + + + +---------+ + + + + | Result panel 217 | + + + + + + + + + | | 2022-01-28 | [facility] | NEGATIVE | (missing) | (missing) | | (unavailable | 19:40 [facility] | | | | + + + + + + + + + | Result panel 218 | + + + + + + + + + | | 2022-01-28 | [facility] | NEGATIVE | (missing) | (missing) | | (unavailable | 19:40 | [facility] | | | | + + + + + + + + + | Result panel 219 | + + + + + + + + + | | 2022-01-28 | [facility] | NEGATIVE | (missing) | (missing) | | (unavailable | 19:40 [facility] | | | | + + + + + + + + + | Result panel 220 | + + + + + + + + + | | 2022-01-28 | [facility] | >=1.030 | (missing) | (missing) | | (unavailable | 19:40 | [facility] | | | | + + + + + + + + + | Result panel 221 | + + + + + + + + + | | 2022-01-28 | [facility] | NEGATIVE | (missing) | (missing) | | (unavailable | 19:40 | [facility] | | | | + + + + + + + + + | Result panel 222 | + + + + + +-------+ + + | | 2022-01-28 | [facility] | 5.5 | (missing) | (missing) | | (unavailable | 19:40 | [facility] | | | | + + + +-------+ + + + + | Result panel 223 | + + + + + + + + + | | 2022-01-28 | [facility] | NEGATIVE | (missing) | (missing) | | (unavailable | 19:40 | [facility] | | | | + + + + + + + + + | Result panel 224 | + + + + + +-------+ + + | | 2022-01-28 | [facility] | 1.0 | (missing) | (missing) | | (unavailable | 19:40 | [facility] | | | | + + + +-------+ + + + + | Result panel 225 | + + + + + + + + + | | 2022-01-28 | [facility] | NEGATIVE | (missing) | (missing) | | (unavailable | 19:40 | [facility] | | | | + + + + + + + + + | Result panel 226 | + + + + + + + + + | | 2022-01-28 | [facility] | NEGATIVE | (missing) | (missing) | | (unavailable | 19:40 | [facility] | | | | + + + + + + + + + | Result panel 227 | + + + + + + + + + | | 2022-01-28 | [facility] | CLEAN CATCH | (missing) | (missing) | | (unavailable | 19:40 | [facility] | | | | + + + + + + + + + | Result panel 228 | + + + + + +-------+ + + | | 2022-01-28 | [facility] | 6.0 | (missing) | (missing) | | (unavailable | 19:40 | [facility] | | | | + + + +-------+ + + + + | Result panel 229 | + + + + + +-------+ + + | | 2022-01-28 | [facility] | 2.3 | (missing) | (missing) | | (unavailable | 19:40 | [facility] | | | | + + + +-------+ + + + + | Result panel 230 | + + + + + +-------+ + + | | 2022-01-28 | [facility] | 3.7 | (missing) | (missing) | | (unavailable | 19:40 | [facility] | | | | + + + +-------+ + + + + | Result panel 231 | + + + + + +--------+ + + | | 2022-01-28 | [facility] | 0.62 | (missing) | (missing) | | (unavailable | 19:40 | [facility] | | | | + + + +--------+ + + + + | Result panel 232 | + + + + + +-------+ + + | | 2022-01-28 | [facility] | 0.3 | (missing) | (missing) | | (unavailable | 19:40 | [facility] | | | | + + + +-------+ + + + + | Result panel 233 | + + + + + +------+ + + | | 2022-01-28 | [facility] | 47 | (missing) | (missing) | | (unavailable | 19:40 | [facility] | | | | + + + +------+ + + + + | Result panel 234 | + + + + + +------+ + + | | 2022-01-28 | [facility] | 48 | (missing) | (missing) | | (unavailable | 19:40 | [facility] | | | | + + + +------+ + + + + | Result panel 235 | + + + + + +-------+ + + | | 2022-01-28 | [facility] | 181 | (missing) | (missing) | | (unavailable | 19:40 | [facility] | | | | + + + +-------+ + + + + | Result panel 236 | + + + + + + + + + | | 2022-01-28 | [facility] | NEGATIVE | (missing) | (missing) | | (unavailable | 19:40 | [facility] | | | | + + + + + + + + + | Result panel 237 | + + + + + + + + + | | 2022-01-28 | [facility] | POSITIVE | (missing) | (missing) | | (unavailable | 19:40 | [facility] | | | | + + + + + + + + + | Result panel 238 | + + + + + + + + + | | 2022-01-28 | [facility] | NEGATIVE | (missing) | (missing) | | (unavailable | 19:40 | [facility] | | | | + + + + + + + + + | Result panel 239 | + + + + + + + + + | | 2022-01-28 | [facility] | NEGATIVE | (missing) | (missing) | | (unavailable | 19:40 | [facility] | | | | + + + + + + + + + | Result panel 240 | + + + + + + + + + | | 2022-01-28 | [facility] | NEGATIVE | (missing) | (missing) | | (unavailable | 19:40 | [facility] | | | | + + + + + + + + + | Result panel 241 | + + + + + + + + + | | 2022-01-28 | [facility] | NEGATIVE | (missing) | (missing) | | (unavailable | 19:40 | [facility] | | | | + + + + + + + + + | Result panel 242 | + + + + + + + + + | | 2022-01-28 | [facility] | NEGATIVE | (missing) | (missing) | | (unavailable | 19:40 | [facility] | | | | + + + + + + + + + | Result panel 243 | + + + + + + + + + | | 2022-01-28 | [facility] | NEGATIVE | (missing) | (missing) | | (unavailable | 19:40 | [facility] | | | | + + + + + + + + + | Result panel 244 | + + + + + + + + + | | 2022-01-28 | [facility] | NEGATIVE | (missing) | (missing) | | (unavailable | 19:40 | [facility] | | | | + + + + + + + + + | Result panel 245 | + + + + + + + + + | | 2022-01-28 | [facility] | POSITIVE | (missing) | (missing) | | (unavailable | 19:40 | [facility] | | | | + + + + + + + + + | Result panel 246 | + + + + + + + + + | | 2022-01-28 | [facility] | NEGATIVE | (missing) | (missing) | | (unavailable | 19:40 | [facility] | | | | + + + + + + + + + | Result panel 247 | + + + + + + + + + | | 2022-01-28 | [facility] | NEGATIVE | (missing) | (missing) | | (unavailable | 19:40 | [facility] | | | | + + + + + + + + + | Result panel 248 | + + + + + + + + + | | 2022-01-28 | [facility] | NEGATIVE | (missing) | (missing) | | (unavailable | 19:40 | [facility] | | | | + + + + + + + + + | Result panel 249 | + + + + + +-------+ + + | | 2022-01-28 | [facility] | 9.8 | (missing) | (missing) | | (unavailable | 19:40 [facility] | | | | + + + +-------+ + + + + | Result panel 250 | + + + + + +--------+ + + | | 2022-01-28 | [facility] | 3.35 | (missing) | (missing) | | (unavailable | 19:40 | [facility] | | | | + + + +--------+ + + + + | Result panel 251 | + + + + + +--------+ + + | | 2022-01-28 | [facility] | 10.1 | (missing) | (missing) | | (unavailable | 19:40 | [facility] | | | | + + + +--------+ + + + + | Result panel 252 | + + + + + +--------+ + + | | 2022-01-28 | [facility] | 31.5 | (missing) | (missing) | | (unavailable | 19:40 | [facility] | | | | + + + +--------+ + + + + | Result panel 253 | + + + + + +--------+ + + | | 2022-01-28 | [facility] | 94.1 | (missing) | (missing) | | (unavailable | 19:40 | [facility] | | | | + + + +--------+ + + + + | Result panel 254 | + + + + + +--------+ + + | | 2022-01-28 | [facility] | 30.3 | (missing) | (missing) | | (unavailable | 19:40 | [facility] | | | | + + + +--------+ + + + + | Result panel 255 | + + + + + +--------+ + + | | 2022-01-28 | [facility] | 32.2 | (missing) | (missing) | | (unavailable | 19:40 | [facility] | | | | + + + +--------+ + + + + | Result panel 256 | + + + + + +--------+ + + | | 2022-01-28 | [facility] | 15.2 | (missing) | (missing) | | (unavailable | 19:40 [facility] | | | | + + + +--------+ + + + + | Result panel 257 | + + + + + +-------+ + + | | 2022-01-28 | [facility] | 340 | (missing) | (missing) | | (unavailable | 19:40 | [facility] | | | + + + +-------+ + + + + | Result panel 258 | + + + + + +--------+ + + | | 2022-01-28 | [facility] | 77.3 | (missing) | (missing) | | (unavailable | 19:40 | [facility] | | | | + + + +--------+ + + + + | Result panel 259 | + + + + + +-------+ + + | | 2022-01-28 | [facility] | 8.8 | (missing) | (missing) | | (unavailable | 19:40 [facility] | | | | + + + +-------+ + + + + | Result panel 260 | + + + + + +--------+ + + | | 2022-01-28 | [facility] | 11.8 | (missing) | (missing) | | (unavailable | 19:40 [facility] | | | | + + + +--------+ + + + + | Result panel 261 | + + + + + +-------+ + + | | 2022-01-28 | [facility] | 1.6 | (missing) | (missing) | | (unavailable | 19:40 | [facility] | | | | + + + +-------+ + + + + | Result panel 262 | + + + + + +-------+ + + | | 2022-01-28 | [facility] | 0.5 | (missing) | (missing) | | (unavailable | 19:40 | [facility] | | | | + + + +-------+ + + + + | Result panel 263 | + + + + + +------+ + + | | 2022-01-28 | [facility] | 47 | (missing) | (missing) | | (unavailable | 19:40 [facility] | | | | + + + +------+ + + + + | Result panel 264 | + + + + + + + + + | | 2022-01-28 | [facility] | YELLOW | (missing) | (missing) | | (unavailable | 19:40 [facility] | | | | + + + + + + + + + | Result panel 265 | + + + + + +---------+ + + | | 2022-01-28 | [facility] | CLEAR | (missing) | (missing) | | (unavailable | 19:40 [facility] | | | | + + + +---------+ + + + + | Result panel 266 | + + + + + + + + + | | 2022-01-28 | [facility] | NEGATIVE | (missing) | (missing) | | (unavailable | 19:40 [facility] | | | | + + + + + + + + + | Result panel 267 | + + + + + + + + + | | 2022-01-28 | [facility] | NEGATIVE | (missing) | (missing) | | (unavailable | 19:40 [facility] | | | | + + + + + + + + + | Result panel 268 | + + + + + + + + + | | 2022-01-28 | [facility] | NEGATIVE | (missing) | (missing) | | (unavailable | 19:40 | [facility] | | | | + + + + + + + + + | Result panel 269 | + + + + + + + + + | | 2022-01-28 | [facility] | >=1.030 | (missing) | (missing) | | (unavailable | 19:40 | [facility] | | | | + + + + + + + + + | Result panel 270 | + + + + + + + + + | | 2022-01-28 | [facility] | NEGATIVE | (missing) | (missing) | | (unavailable | 19:40 [facility] | | | | + + + + + + + + + | Result panel 271 | + + + + + +-------+ + + | | 2022-01-28 | [facility] | 5.5 | (missing) | (missing) | | (unavailable | 19:40 | [facility] | | | | + + + +-------+ + + + + | Result panel 272 | + + + + + + + + + | | 2022-01-28 | [facility] | NEGATIVE | (missing) | (missing) | | (unavailable | 19:40 [facility] | | | | + + + + + + + + + | Result panel 273 | + + + + + +-------+ + + | | 2022-01-28 | [facility] | 1.0 | (missing) | (missing) | | (unavailable | 19:40 | [facility] | | | | + + + +-------+ + + + + | Result panel 274 | + + + + + + + + + | | 2022-01-28 | [facility] | NEGATIVE | (missing) | (missing) | | (unavailable | 19:40 [facility] | | | | + + + + + + + + + | Result panel 275 | + + + + + + + + + | | 2022-01-28 | [facility] | NEGATIVE | (missing) | (missing) | | (unavailable | 19:40 [facility] | | | | + + + + + + + + + | Result panel 276 | + + + + + + + + + | | 2022-01-28 | [facility] | CLEAN CATCH | (missing) | (missing) | | (unavailable | 19:40 | [facility] | | | | + + + + + + + + + | Result panel 277 | + + + + + +-------+ + + | | 2022-01-28 | [facility] | 6.0 | (missing) | (missing) | | (unavailable | 19:40 | [facility] | | | | + + + +-------+ + + + + | Result panel 278 | + + + + + +-------+ + + | | 2022-01-28 | [facility] | 2.3 | (missing) | (missing) | | (unavailable | 19:40 | [facility] | | | | + + + +-------+ + + + + | Result panel 279 | + + + + + +-------+ + + | | 2022-01-28 | [facility] | 3.7 | (missing) | (missing) | | (unavailable | 19:40 [facility] | | | | + + + +-------+ + + + + | Result panel 280 | + + + + + +--------+ + + | | 2022-01-28 | [facility] | 0.62 | (missing) | (missing) | | (unavailable | 19:40 | [facility] | | | | + + + +--------+ + + + + | Result panel 281 | + + + + + +-------+ + + | | 2022-01-28 | [facility] | 0.3 | (missing) | (missing) | | (unavailable | 19:40 [facility] | | | | + + + +-------+ + + + + | Result panel 282 | + + + + + +------+ + + | | 2022-01-28 | [facility] | 47 | (missing) | (missing) | | (unavailable | 19:40 | [facility] | | | | + + + +------+ + + + + | Result panel 283 | + + + + + +------+ + + | | 2022-01-28 | [facility] | 48 | (missing) | (missing) | | (unavailable | 19:40 | [facility] | | | | + + + +------+ + + + + | Result panel 284 | + + + + + +-------+ + + | | 2022-01-28 | [facility] | 181 | (missing) | (missing) | | (unavailable | 19:40 | [facility] | | | | + + + +-------+ + + + + | Result panel 285 | + + + + + + + + + | | 2022-01-28 | [facility] | NEGATIVE | (missing) | (missing) | | (unavailable | 19:40 | [facility] | | | | + + + + + + + + + | Result panel 286 | + + + + + + + + + | | 2022-01-28 | [facility] | POSITIVE | (missing) | (missing) | | (unavailable | 19:40 | [facility] | | | | + + + + + + + + + | Result panel 287 | + + + + + + + + + | | 2022-01-28 | [facility] | NEGATIVE | (missing) | (missing) | | (unavailable | 19:40 | [facility] | | | | + + + + + + + + + | Result panel 288 | + + + + + + + + + | | 2022-01-28 | [facility] | NEGATIVE | (missing) | (missing) | | (unavailable | 19:40 | [facility] | | | | + + + + + + + + + | Result panel 289 | + + + + + + + + + | | 2022-01-28 | [facility] | NEGATIVE | (missing) | (missing) | | (unavailable | 19:40 | [facility] | | | | + + + + + + + + + | Result panel 290 | + + + + + + + + + | | 2022-01-28 | [facility] | NEGATIVE | (missing) | (missing) | | (unavailable | 19:40 | [facility] | | | | + + + + + + + + + | Result panel 291 | + + + + + + + + + | | 2022-01-28 | [facility] | NEGATIVE | (missing) | (missing) | | (unavailable | 19:40 | [facility] | | | | + + + + + + + + + | Result panel 292 | + + + + + + + + + | | 2022-01-28 | [facility] | NEGATIVE | (missing) | (missing) | | (unavailable | 19:40 | [facility] | | | | + + + + + + + + + | Result panel 293 | + + + + + + + + + | | 2022-01-28 | [facility] | NEGATIVE | (missing) | (missing) | | (unavailable | 19:40 [facility] | | | | + + + + + + + + + | Result panel 294 | + + + + + + + + + | | 2022-01-28 | [facility] | POSITIVE | (missing) | (missing) | | (unavailable | 19:40 [facility] | | | | + + + + + + + + + | Result panel 295 | + + + + + + + + + | | 2022-01-28 | [facility] | NEGATIVE | (missing) | (missing) | | (unavailable | 19:40 [facility] | | | | + + + + + + + + + | Result panel 296 | + + + + + + + + + | | 2022-01-28 | [facility] | NEGATIVE | (missing) | (missing) | | (unavailable | 19:40 [facility] | | | | + + + + + + + + + | Result panel 297 | + + + + + + + + + | | 2022-01-28 | [facility] | NEGATIVE | (missing) | (missing) | | (unavailable | 19:40 [facility] | | | | + + + + + + + + + | Result panel 298 | + + + + + +-------+ + + | | 2022-01-28 | [facility] | 9.8 | (missing) | (missing) | | (unavailable | 19:40 [facility] | | | | + + + +-------+ + + + + | Result panel 299 | + + + + + +--------+ + + | | 2022-01-28 | [facility] | 3.35 | (missing) | (missing) | | (unavailable | 19:40 [facility] | | | | + + + +--------+ + + + + | Result panel 300 | + + + + + +--------+ + + | | 2022-01-28 | [facility] | 10.1 | (missing) | (missing) | | (unavailable | 19:40 [facility] | | | | + + + +--------+ + + + + | Result panel 301 | + + + + + +--------+ + + | | 2022-01-28 | [facility] | 31.5 | (missing) | (missing) | | (unavailable | 19:40 | [facility] | | | | + + + +--------+ + + + + | Result panel 302 | + + + + + +--------+ + + | | 2022-01-28 | [facility] | 94.1 | (missing) | (missing) | | (unavailable | 19:40 [facility] | | | | + + + +--------+ + + + + | Result panel 303 | + + + + + +--------+ + + | | 2022-01-28 | [facility] | 30.3 | (missing) | (missing) | | (unavailable | 19:40 | [facility] | | | | + + + +--------+ + + + + | Result panel 304 | + + + + + +--------+ + + | | 2022-01-28 | [facility] | 32.2 | (missing) | (missing) | | (unavailable | 19:40 | [facility] | | | | + + + +--------+ + + + + | Result panel 305 | + + + + + +--------+ + + | | 2022-01-28 | [facility] | 15.2 | (missing) | (missing) | | (unavailable | 19:40 | [facility] | | | | + + + +--------+ + + + + | Result panel 306 | + + + + + +-------+ + + | | 2022-01-28 | [facility] | 340 | (missing) | (missing) | | (unavailable | 19:40 | [facility] | | | | + + + +-------+ + + + + | Result panel 307 | + + + + + +--------+ + + | | 2022-01-28 | [facility] | 77.3 | (missing) | (missing) | | (unavailable | 19:40 | [facility] | | | | + + + +--------+ + + + + | Result panel 308 | + + + + + +-------+ + + | | 2022-01-28 | [facility] | 8.8 | (missing) | (missing) | | (unavailable | 19:40 | [facility] | | | | + + + +-------+ + + + + | Result panel 309 | + + + + + +--------+ + + | | 2022-01-28 | [facility] | 11.8 | (missing) | (missing) | | (unavailable | 19:40 | [facility] | | | | + + + +--------+ + + + + | Result panel 310 | + + + + + +-------+ + + | | 2022-01-28 | [facility] | 1.6 | (missing) | (missing) | | (unavailable | 19:40 | [facility] | | | | + + + +-------+ + + + + | Result panel 311 | + + + + + +-------+ + + | | 2022-01-28 | [facility] | 0.5 | (missing) | (missing) | | (unavailable | 19:40 | [facility] | | | | + + + +-------+ + + + + | Result panel 312 | + + + + + +------+ + + | | 2022-01-28 | [facility] | 47 | (missing) | (missing) | | (unavailable | 19:40 | [facility] | | | | + + + +------+ + + + + | Result panel 313 | + + + + + + + + + | | 2022-01-28 | [facility] | YELLOW | (missing) | (missing) | | (unavailable | 19:40 | [facility] | | | | + + + + + + + + + | Result panel 314 | + + + + + +---------+ + + | | 2022-01-28 | [facility] | CLEAR | (missing) | (missing) | | (unavailable | 19:40 | [facility] | | | | + + + +---------+ + + + + | Result panel 315 | + + + + + + + + + | | 2022-01-28 | [facility] | NEGATIVE | (missing) | (missing) | | (unavailable | 19:40 | [facility] | | | | + + + + + + + + + | Result panel 316 | + + + + + + + + + | | 2022-01-28 | [facility] | NEGATIVE | (missing) | (missing) | | (unavailable | 19:40 | [facility] | | | | + + + + + + + + + | Result panel 317 | + + + + + + + + + | | 2022-01-28 | [facility] | NEGATIVE | (missing) | (missing) | | (unavailable | 19:40 | [facility] | | | | + + + + + + + + + | Result panel 318 | + + + + + + + + + | | 2022-01-28 | [facility] | >=1.030 | (missing) | (missing) | | (unavailable | 19:40 | [facility] | | | | + + + + + + + + + | Result panel 319 | + + + + + + + + + | | 2022-01-28 | [facility] | NEGATIVE | (missing) | (missing) | | (unavailable | 19:40 | [facility] | | | | + + + + + + + + + | Result panel 320 | + + + + + +-------+ + + | | 2022-01-28 | [facility] | 5.5 | (missing) | (missing) | | (unavailable | 19:40 | [facility] | | | | + + + +-------+ + + + + | Result panel 321 | + + + + + + + + + | | 2022-01-28 | [facility] | NEGATIVE | (missing) | (missing) | | (unavailable | 19:40 | [facility] | | | | + + + + + + + + + | Result panel 322 | + + + + + +-------+ + + | | 2022-01-28 | [facility] | 1.0 | (missing) | (missing) | | (unavailable | 19:40 | [facility] | | | | + + + +-------+ + + + + | Result panel 323 | + + + + + + + + + | | 2022-01-28 | [facility] | NEGATIVE | (missing) | (missing) | | (unavailable | 19:40 [facility] | | | + + + + + + + + + | Result panel 324 | + + + + + + + + + | | 2022-01-28 | [facility] | NEGATIVE | (missing) | (missing) | | (unavailable | 19:40 [facility] | | | + + + + + + + + + | Result panel 325 | + + + + + + + + + | | 2022-01-28 | [facility] | CLEAN CATCH | (missing) | (missing) | | (unavailable | 19:40 [facility] | | | + + + + + + + + + | Result panel 326 | + + + + + +-------+ + + | | 2022-01-28 | [facility] | 6.0 | (missing) | (missing) | | (unavailable | 19:40 [facility] | | | + + + +-------+ + + + + | Result panel 327 | + + + + + +-------+ + + | | 2022-01-28 | [facility] | 2.3 | (missing) | (missing) | | (unavailable | 19:40 [facility] | | | + + + +-------+ + + + + | Result panel 328 | + + + + + +-------+ + + | | 2022-01-28 | [facility] | 3.7 | (missing) | (missing) | | (unavailable | 19:40 [facility] | | | + + + +-------+ + + + + | Result panel 329 | + + + + + +--------+ + + | | 2022-01-28 | [facility] | 0.62 | (missing) | (missing) | | (unavailable | 19:40 [facility] | | | + + + +--------+ + + + + | Result panel 330 | + + + + + +-------+ + + | | 2022-01-28 | [facility] | 0.3 | (missing) | (missing) | | (unavailable | 19:40 [facility] | | | + + + +-------+ + + + + | Result panel 331 | + + + + + +------+ + + | | 2022-01-28 | [facility] | 47 | (missing) | (missing) | | (unavailable | 19:40 [facility] | | | + + + +------+ + + + + | Result panel 332 | + + + + + +------+ + + | | 2022-01-28 | [facility] | 48 | (missing) | (missing) | | (unavailable | 19:40 | [facility] | | | + + + +------+ + + + + | Result panel 333 | + + + + + +-------+ + + | | 2022-01-28 | [facility] | 181 | (missing) | (missing) | | (unavailable | 19:40 [facility] | | | + + + +-------+ + + + + | Result panel 334 | + + + + + + + + + | | 2022-01-28 | [facility] | NEGATIVE | (missing) | (missing) | | (unavailable | 19:40 | [facility] | | | + + + + + + + + + | Result panel 335 | + + + + + + + + + | | 2022-01-28 | [facility] | POSITIVE | (missing) | (missing) | | (unavailable | 19:40 | [facility] | | | + + + + + + + + + | Result panel 336 | + + + + + + + + + | | 2022-01-28 | [facility] | NEGATIVE | (missing) | (missing) | | (unavailable | 19:40 | [facility] | | | + + + + + + + + + | Result panel 337 | + + + + + + + + + | | 2022-01-28 | [facility] | NEGATIVE | (missing) | (missing) | | (unavailable | 19:40 | [facility] | | | + + + + + + + + + | Result panel 338 | + + + + + + + + + | | 2022-01-28 | [facility] | NEGATIVE | (missing) | (missing) | | (unavailable | 19:40 | [facility] | | | + + + + + + + + + | Result panel 339 | + + + + + + + + + | | 2022-01-28 | [facility] | NEGATIVE | (missing) | (missing) | | (unavailable | 19:40 | [facility] | | | + + + + + + + + + | Result panel 340 | + + + + + + + + + | | 2022-01-28 | [facility] | NEGATIVE | (missing) | (missing) | | (unavailable | 19:40 | [facility] | | | + + + + + + + + + | Result panel 341 | + + + + + + + + + | | 2022-01-28 | [facility] | NEGATIVE | (missing) | (missing) | | (unavailable | 19:40 | [facility] | | | + + + + + + + + + | Result panel 342 | + + + + + + + + + | | 2022-01-28 | [facility] | NEGATIVE | (missing) | (missing) | | (unavailable | 19:40 | [facility] | | | + + + + + + + + + | Result panel 343 | + + + + + + + + + | | 2022-01-28 | [facility] | POSITIVE | (missing) | (missing) | | (unavailable | 19:40 | [facility] | | | + + + + + + + + + | Result panel 344 | + + + + + + + + + | | 2022-01-28 | [facility] | NEGATIVE | (missing) | (missing) | | (unavailable | 19:40 | [facility] | | | + + + + + + + + + | Result panel 345 | + + + + + + + + + | | 2022-01-28 | [facility] | NEGATIVE | (missing) | (missing) | | (unavailable | 19:40 | [facility] | | | | + + + + + + + + + | Result panel 346 | + + + + + + + + + | | 2022-01-28 | [facility] | NEGATIVE | (missing) | (missing) | | (unavailable | 19:40 [facility] | | | + + + + + + + + + | Result panel 347 | + + + + + +-------+ + + | | 2022-01-28 | [facility] | 9.8 | (missing) | (missing) | | (unavailable | 19:40 [facility] | | | + + + +-------+ + + + + | Result panel 348 | + + + + + +--------+ + + | | 2022-01-28 | [facility] | 3.35 | (missing) | (missing) | | (unavailable | 19:40 [facility] | | | + + + +--------+ + + + + | Result panel 349 | + + + + + +--------+ + + | | 2022-01-28 | [facility] | 10.1 | (missing) | (missing) | | (unavailable | 19:40 [facility] | | | + + + +--------+ + + + + | Result panel 350 | + + + + + +--------+ + + | | 2022-01-28 | [facility] | 31.5 | (missing) | (missing) | | (unavailable | 19:40 [facility] | | | + + + +--------+ + + + + | Result panel 351 | + + + + + +--------+ + + | | 2022-01-28 | [facility] | 94.1 | (missing) | (missing) | | (unavailable | 19:40 [facility] | | | + + + +--------+ + + + + | Result panel 352 | + + + + + +--------+ + + | | 2022-01-28 | [facility] | 30.3 | (missing) | (missing) | | (unavailable | 19:40 | [facility] | | | + + + +--------+ + + + + | Result panel 353 | + + + + + +--------+ + + | | 2022-01-28 | [facility] | 32.2 | (missing) | (missing) | | (unavailable | 19:40 [facility] | | | + + + +--------+ + + + + | Result panel 354 | + + + + + +--------+ + + | | 2022-01-28 | [facility] | 15.2 | (missing) | (missing) | | (unavailable | 19:40 [facility] | | | + + + +--------+ + + + + | Result panel 355 | + + + + + +-------+ + + | | 2022-01-28 | [facility] | 340 | (missing) | (missing) | | (unavailable | 19:40 | [facility] | | | + + + +-------+ + + + + | Result panel 356 | + + + + + +--------+ + + | | 2022-01-28 | [facility] | 77.3 | (missing) | (missing) | | (unavailable | 19:40 [facility] | | | + + + +--------+ + + + + | Result panel 357 | + + + + + +-------+ + + | | 2022-01-28 | [facility] | 8.8 | (missing) | (missing) | | (unavailable | 19:40 | [facility] | | | + + + +-------+ + + + + | Result panel 358 | + + + + + +--------+ + + | | 2022-01-28 | [facility] | 11.8 | (missing) | (missing) | | (unavailable | 19:40 [facility] | | | + + + +--------+ + + + + | Result panel 359 | + + + + + +-------+ + + | | 2022-01-28 | [facility] | 1.6 | (missing) | (missing) | | (unavailable | 19:40 | [facility] | | | + + + +-------+ + + + + | Result panel 360 | + + + + + +-------+ + + | | 2022-01-28 | [facility] | 0.5 | (missing) | (missing) | | (unavailable | 19:40 | [facility] | | | + + + +-------+ + + + + | Result panel 361 | + + + + + +------+ + + | | 2022-01-28 | [facility] | 47 | (missing) | (missing) | | (unavailable | 19:40 | [facility] | | | + + + +------+ + + + + | Result panel 362 | + + + + + + + + + | | 2022-01-28 | [facility] | YELLOW | (missing) | (missing) | | (unavailable | 19:40 | [facility] | | | | + + + + + + + + + | Result panel 363 | + + + + + +---------+ + + | | 2022-01-28 | [facility] | CLEAR | (missing) | (missing) | | (unavailable | 19:40 | [facility] | | | + + + +---------+ + + + + | Result panel 364 | + + + + + + + + + | | 2022-01-28 | [facility] | NEGATIVE | (missing) | (missing) | | (unavailable | 19:40 | [facility] | | | + + + + + + + + + | Result panel 365 | + + + + + + + + + | | 2022-01-28 | [facility] | NEGATIVE | (missing) | (missing) | | (unavailable | 19:40 | [facility] | | | | + + + + + + + + + | Result panel 366 | + + + + + + + + + | | 2022-01-28 | [facility] | NEGATIVE | (missing) | (missing) | | (unavailable | 19:40 | [facility] | | | + + + + + + + + + | Result panel 367 | + + + + + + + + + | | 2022-01-28 | [facility] | >=1.030 | (missing) | (missing) | | (unavailable | 19:40 | [facility] | | | + + + + + + + + + | Result panel 368 | + + + + + + + + + | | 2022-01-28 | [facility] | NEGATIVE | (missing) | (missing) | | (unavailable | 19:40 | [facility] | | | | + + + + + + + + + | Result panel 369 | + + + + + +-------+ + + | | 2022-01-28 | [facility] | 5.5 | (missing) | (missing) | | (unavailable | 19:40 | [facility] | | | | + + + +-------+ + + + + | Result panel 370 | + + + + + + + + + | | 2022-01-28 | [facility] | NEGATIVE | (missing) | (missing) | | (unavailable | 19:40 | [facility] | | | | + + + + + + + + + | Result panel 371 | + + + + + +-------+ + + | | 2022-01-28 | [facility] | 1.0 | (missing) | (missing) | | (unavailable | 19:40 | [facility] | | | + + + +-------+ + + + + | Result panel 372 | + + + + + + + + + | | 2022-01-28 | [facility] | NEGATIVE | (missing) | (missing) | | (unavailable | 19:40 | [facility] | | | + + + + + + + + + | Result panel 373 | + + + + + + + + + | | 2022-01-28 | [facility] | NEGATIVE | (missing) | (missing) | | (unavailable | 19:40 | [facility] | | | + + + + + + + + + | Result panel 374 | + + + + + + + + + | | 2022-01-28 | [facility] | CLEAN CATCH | (missing) | (missing) | | (unavailable | 19:40 | [facility] | | | + + + + + + + + + | Result panel 375 | + + + + + +-------+ + + | | 2022-01-28 | [facility] | 6.0 | (missing) | (missing) | | (unavailable | 19:40 | [facility] | | | + + + +-------+ + + + + | Result panel 376 | + + + + + +-------+ + + | | 2022-01-28 | [facility] | 2.3 | (missing) | (missing) | | (unavailable | 19:40 | [facility] | | | + + + +-------+ + + + + | Result panel 377 | + + + + + +-------+ + + | | 2022-01-28 | [facility] | 3.7 | (missing) | (missing) | | (unavailable | 19:40 | [facility] | | | + + + +-------+ + + + + | Result panel 378 | + + + + + +--------+ + + | | 2022-01-28 | [facility] | 0.62 | (missing) | (missing) | | (unavailable | 19:40 | [facility] | | | + + + +--------+ + + + + | Result panel 379 | + + + + + +-------+ + + | | 2022-01-28 | [facility] | 0.3 | (missing) | (missing) | | (unavailable | 19:40 | [facility] | | | + + + +-------+ + + + + | Result panel 380 | + + + + + +------+ + + | | 2022-01-28 | [facility] | 47 | (missing) | (missing) | | (unavailable | 19:40 | [facility] | | | + + + +------+ + + + + | Result panel 381 | + + + + + +------+ + + | | 2022-01-28 | [facility] | 48 | (missing) | (missing) | | (unavailable | 19:40 | [facility] | | | + + + +------+ + + + + | Result panel 382 | + + + + + +-------+ + + | | 2022-01-28 | [facility] | 181 | (missing) | (missing) | | (unavailable | 19:40 | [facility] | | | | + + + +-------+ + + + + | Result panel 383 | + + + + + + + + + | | 2022-01-28 | [facility] | NEGATIVE | (missing) | (missing) | | (unavailable | 19:40 | [facility] | | | | + + + + + + + + + | Result panel 384 | + + + + + + + + + | | 2022-01-28 | [facility] | POSITIVE | (missing) | (missing) | | (unavailable | 19:40 | [facility] | | | | + + + + + + + + + | Result panel 385 | + + + + + + + + + | | 2022-01-28 | [facility] | NEGATIVE | (missing) | (missing) | | (unavailable | 19:40 | [facility] | | | | + + + + + + + + + | Result panel 386 | + + + + + + + + + | | 2022-01-28 | [facility] | NEGATIVE | (missing) | (missing) | | (unavailable | 19:40 | [facility] | | | | + + + + + + + + + | Result panel 387 | + + + + + + + + + | | 2022-01-28 | [facility] | NEGATIVE | (missing) | (missing) | | (unavailable | 19:40 | [facility] | | | | + + + + + + + + + | Result panel 388 | + + + + + + + + + | | 2022-01-28 | [facility] | NEGATIVE | (missing) | (missing) | | (unavailable | 19:40 | [facility] | | | | + + + + + + + + + | Result panel 389 | + + + + + + + + + | | 2022-01-28 | [facility] | NEGATIVE | (missing) | (missing) | | (unavailable | 19:40 | [facility] | | | | + + + + + + + + + | Result panel 390 | + + + + + + + + + | | 2022-01-28 | [facility] | NEGATIVE | (missing) | (missing) | | (unavailable | 19:40 [facility] | | | | + + + + + + + + + | Result panel 391 | + + + + + + + + + | | 2022-01-28 | [facility] | NEGATIVE | (missing) | (missing) | | (unavailable | 19:40 | [facility] | | | | + + + + + + + + + | Result panel 392 | + + + + + + + + + | | 2022-01-28 | [facility] | POSITIVE | (missing) | (missing) | | (unavailable | 19:40 | [facility] | | | | + + + + + + + + + | Result panel 393 | + + + + + + + + + | | 2022-01-28 | [facility] | NEGATIVE | (missing) | (missing) | | (unavailable | 19:40 | [facility] | | | | + + + + + + + + + | Result panel 394 | + + + + + + + + + | | 2022-01-28 | [facility] | NEGATIVE | (missing) | (missing) | | (unavailable | 19:40 | [facility] | | | | + + + + + + + + + | Result panel 395 | + + + + + + + + + | | 2022-01-28 | [facility] | NEGATIVE | (missing) | (missing) | | (unavailable | 19:40 | [facility] | | | | + + + + + + + + + | Result panel 396 | + + + + + +-------+ + + | | 2022-01-28 | [facility] | 9.8 | (missing) | (missing) | | (unavailable | 19:40 [facility] | | | + + + +-------+ + + + + | Result panel 397 | + + + + + +--------+ + + | | 2022-01-28 | [facility] | 3.35 | (missing) | (missing) | | (unavailable | 19:40 | [facility] | | | + + + +--------+ + + + + | Result panel 398 | + + + + + +--------+ + + | | 2022-01-28 | [facility] | 10.1 | (missing) | (missing) | | (unavailable | 19:40 | [facility] | | | + + + +--------+ + + + + | Result panel 399 | + + + + + +--------+ + + | | 2022-01-28 | [facility] | 31.5 | (missing) | (missing) | | (unavailable | 19:40 | [facility] | | | + + + +--------+ + + + + | Result panel 400 | + + + + + +--------+ + + | | 2022-01-28 | [facility] | 94.1 | (missing) | (missing) | | (unavailable | 19:40 | [facility] | | | + + + +--------+ + + + + | Result panel 401 | + + + + + +--------+ + + | | 2022-01-28 | [facility] | 30.3 | (missing) | (missing) | | (unavailable | 19:40 | [facility] | | | + + + +--------+ + + + + | Result panel 402 | + + + + + +--------+ + + | | 2022-01-28 | [facility] | 32.2 | (missing) | (missing) | | (unavailable | 19:40 | [facility] | | | + + + +--------+ + + + + | Result panel 403 | + + + + + +--------+ + + | | 2022-01-28 | [facility] | 15.2 | (missing) | (missing) | | (unavailable | 19:40 | [facility] | | | + + + +--------+ + + + + | Result panel 404 | + + + + + +-------+ + + | | 2022-01-28 | [facility] | 340 | (missing) | (missing) | | (unavailable | 19:40 | [facility] | | | + + + +-------+ + + + + | Result panel 405 | + + + + + +--------+ + + | | 2022-01-28 | [facility] | 77.3 | (missing) | (missing) | | (unavailable | 19:40 | [facility] | | | + + + +--------+ + + + + | Result panel 406 | + + + + + +-------+ + + | | 2022-01-28 | [facility] | 8.8 | (missing) | (missing) | | (unavailable | 19:40 | [facility] | | | + + + +-------+ + + + + | Result panel 407 | + + + + + +--------+ + + | | 2022-01-28 | [facility] | 11.8 | (missing) | (missing) | | (unavailable | 19:40 | [facility] | | | | + + + +--------+ + + + + | Result panel 408 | + + + + + +-------+ + + | | 2022-01-28 | [facility] | 1.6 | (missing) | (missing) | | (unavailable | 19:40 | [facility] | | | | + + + +-------+ + + + + | Result panel 409 | + + + + + +-------+ + + | | 2022-01-28 | [facility] | 0.5 | (missing) | (missing) | | (unavailable | 19:40 | [facility] | | | | + + + +-------+ + + + + | Result panel 410 | + + + + + +------+ + + | | 2022-01-28 | [facility] | 47 | (missing) | (missing) | | (unavailable | 19:40 | [facility] | | | | + + + +------+ + + + + | Result panel 411 | + + + + + + + + + | | 2022-01-28 | [facility] | YELLOW | (missing) | (missing) | | (unavailable | 19:40 | [facility] | | | | + + + + + + + + + | Result panel 412 | + + + + + +---------+ + + | | 2022-01-28 | [facility] | CLEAR | (missing) | (missing) | | (unavailable | 19:40 | [facility] | | | | + + + +---------+ + + + + | Result panel 413 | + + + + + + + + + | | 2022-01-28 | [facility] | NEGATIVE | (missing) | (missing) | | (unavailable | 19:40 | [facility] | | | | + + + + + + + + + | Result panel 414 | + + + + + + + + + | | 2022-01-28 | [facility] | NEGATIVE | (missing) | (missing) | | (unavailable | 19:40 | [facility] | | | | + + + + + + + + + | Result panel 415 | + + + + + + + + + | | 2022-01-28 | [facility] | NEGATIVE | (missing) | (missing) | | (unavailable | 19:40 | [facility] | | | | + + + + + + + + + | Result panel 416 | + + + + + + + + + | | 2022-01-28 | [facility] | >=1.030 | (missing) | (missing) | | (unavailable | 19:40 | [facility] | | | | + + + + + + + + + | Result panel 417 | + + + + + + + + + | | 2022-01-28 | [facility] | NEGATIVE | (missing) | (missing) | | (unavailable | 19:40 | [facility] | | | | + + + + + + + + + | Result panel 418 | + + + + + +-------+ + + | | 2022-01-28 | [facility] | 5.5 | (missing) | (missing) | | (unavailable | 19:40 | [facility] | | | | + + + +-------+ + + + + | Result panel 419 | + + + + + + + + + | | 2022-01-28 | [facility] | NEGATIVE | (missing) | (missing) | | (unavailable | 19:40 | [facility] | | | | + + + + + + + + + | Result panel 420 | + + + + + +-------+ + + | | 2022-01-28 | [facility] | 1.0 | (missing) | (missing) | | (unavailable | 19:40 | [facility] | | | | + + + +-------+ + + + + | Result panel 421 | + + + + + + + + + | | 2022-01-28 | [facility] | NEGATIVE | (missing) | (missing) | | (unavailable | 19:40 | [facility] | | | | + + + + + + + + + | Result panel 422 | + + + + + + + + + | | 2022-01-28 | [facility] | NEGATIVE | (missing) | (missing) | | (unavailable | 19:40 | [facility] | | | | + + + + + + + + + | Result panel 423 | + + + + + + + + + | | 2022-01-28 | [facility] | CLEAN CATCH | (missing) | (missing) | | (unavailable | 19:40 | [facility] | | | | + + + + + + + + + | Result panel 424 | + + + + + +-------+ + + | | 2022-01-28 | [facility] | 6.0 | (missing) | (missing) | | (unavailable | 19:40 | [facility] | | | | + + + +-------+ + + + + | Result panel 425 | + + + + + +-------+ + + | | 2022-01-28 | [facility] | 2.3 | (missing) | (missing) | | (unavailable | 19:40 | [facility] | | | | + + + +-------+ + + + + | Result panel 426 | + + + + + +-------+ + + | | 2022-01-28 | [facility] | 3.7 | (missing) | (missing) | | (unavailable | 19:40 | [facility] | | | | + + + +-------+ + + + + | Result panel 427 | + + + + + +--------+ + + | | 2022-01-28 | [facility] | 0.62 | (missing) | (missing) | | (unavailable | 19:40 | [facility] | | | | + + + +--------+ + + + + | Result panel 428 | + + + + + +-------+ + + | | 2022-01-28 | [facility] | 0.3 | (missing) | (missing) | | (unavailable | 19:40 | [facility] | | | | + + + +-------+ + + + + | Result panel 429 | + + + + + +------+ + + | | 2022-01-28 | [facility] | 47 | (missing) | (missing) | | (unavailable | 19:40 | [facility] | | | | + + + +------+ + + + + | Result panel 430 | + + + + + +------+ + + | | 2022-01-28 | [facility] | 48 | (missing) | (missing) | | (unavailable | 19:40 | [facility] | | | | + + + +------+ + + + + | Result panel 431 | + + + + + +-------+ + + | | 2022-01-28 | [facility] | 181 | (missing) | (missing) | | (unavailable | 19:40 | [facility] | | | | + + + +-------+ + + + + | Result panel 432 | + + + + + + + + + | | 2022-01-28 | [facility] | NEGATIVE | (missing) | (missing) | | (unavailable | 19:40 | [facility] | | | | + + + + + + + + + | Result panel 433 | + + + + + + + + + | | 2022-01-28 | [facility] | POSITIVE | (missing) | (missing) | | (unavailable | 19:40 | [facility] | | | | + + + + + + + + + | Result panel 434 | + + + + + + + + + | | 2022-01-28 | [facility] | NEGATIVE | (missing) | (missing) | | (unavailable | 19:40 | [facility] | | | | + + + + + + + + + | Result panel 435 | + + + + + + + + + | | 2022-01-28 | [facility] | NEGATIVE | (missing) | (missing) | | (unavailable | 19:40 | [facility] | | | | + + + + + + + + + | Result panel 436 | + + + + + + + + + | | 2022-01-28 | [facility] | NEGATIVE | (missing) | (missing) | | (unavailable | 19:40 | [facility] | | | | + + + + + + + + + | Result panel 437 | + + + + + + + + + | | 2022-01-28 | [facility] | NEGATIVE | (missing) | (missing) | | (unavailable | 19:40 | [facility] | | | | + + + + + + + + + | Result panel 438 | + + + + + + + + + | | 2022-01-28 | [facility] | NEGATIVE | (missing) | (missing) | | (unavailable | 19:40 | [facility] | | | | + + + + + + + + + | Result panel 439 | + + + + + + + + + | | 2022-01-28 | [facility] | NEGATIVE | (missing) | (missing) | | (unavailable | 19:40 | [facility] | | | | + + + + + + + + + | Result panel 440 | + + + + + + + + + | | 2022-01-28 | [facility] | NEGATIVE | (missing) | (missing) | | (unavailable | 19:40 | [facility] | | | | + + + + + + + + + | Result panel 441 | + + + + + + + + + | | 2022-01-28 | [facility] | POSITIVE | (missing) | (missing) | | (unavailable | 19:40 | [facility] | | | | + + + + + + + + + | Result panel 442 | + + + + + + + + + | | 2022-01-28 | [facility] | NEGATIVE | (missing) | (missing) | | (unavailable | 19:40 | [facility] | | | | + + + + + + + + + | Result panel 443 | + + + + + + + + + | | 2022-01-28 | [facility] | NEGATIVE | (missing) | (missing) | | (unavailable | 19:40 | [facility] | | | | + + + + + + + + + | Result panel 444 | + + + + + + + + + | | 2022-01-28 | [facility] | NEGATIVE | (missing) | (missing) | | (unavailable | 19:40 | [facility] | | | | + + + + + + + + + | Result panel 445 | + + + + + +-------+ + + | | 2022-01-28 | [facility] | 9.8 | (missing) | (missing) | | (unavailable | 19:40 | [facility] | | | | + + + +-------+ + + + + | Result panel 446 | + + + + + +--------+ + + | | 2022-01-28 | [facility] | 3.35 | (missing) | (missing) | | (unavailable | 19:40 | [facility] | | | | + + + +--------+ + + + + | Result panel 447 | + + + + + +--------+ + + | | 2022-01-28 | [facility] | 10.1 | (missing) | (missing) | | (unavailable | 19:40 | [facility] | | | | + + + +--------+ + + + + | Result panel 448 | + + + + + +--------+ + + | | 2022-01-28 | [facility] | 31.5 | (missing) | (missing) | | (unavailable | 19:40 | [facility] | | | | + + + +--------+ + + + + | Result panel 449 | + + + + + +--------+ + + | | 2022-01-28 | [facility] | 94.1 | (missing) | (missing) | | (unavailable | 19:40 | [facility] | | | | + + + +--------+ + + + + | Result panel 450 | + + + + + +--------+ + + | | 2022-01-28 | [facility] | 30.3 | (missing) | (missing) | | (unavailable | 19:40 | [facility] | | | | + + + +--------+ + + + + | Result panel 451 | + + + + + +--------+ + + | | 2022-01-28 | [facility] | 32.2 | (missing) | (missing) | | (unavailable | 19:40 | [facility] | | | | + + + +--------+ + + + + | Result panel 452 | + + + + + +--------+ + + | | 2022-01-28 | [facility] | 15.2 | (missing) | (missing) | | (unavailable | 19:40 | [facility] | | | | + + + +--------+ + + + + | Result panel 453 | + + + + + +-------+ + + | | 2022-01-28 | [facility] | 340 | (missing) | (missing) | | (unavailable | 19:40 [facility] | | | + + + +-------+ + + + + | Result panel 454 | + + + + + +--------+ + + | | 2022-01-28 | [facility] | 77.3 | (missing) | (missing) | | (unavailable | 19:40 [facility] | | | + + + +--------+ + + + + | Result panel 455 | + + + + + +-------+ + + | | 2022-01-28 | [facility] | 8.8 | (missing) | (missing) | | (unavailable | 19:40 [facility] | | | + + + +-------+ + + + + | Result panel 456 | + + + + + +--------+ + + | | 2022-01-28 | [facility] | 11.8 | (missing) | (missing) | | (unavailable | 19:40 [facility] | | | + + + +--------+ + + + + | Result panel 457 | + + + + + +-------+ + + | | 2022-01-28 | [facility] | 1.6 | (missing) | (missing) | | (unavailable | 19:40 [facility] | | | + + + +-------+ + + + + | Result panel 458 | + + + + + +-------+ + + | | 2022-01-28 | [facility] | 0.5 | (missing) | (missing) | | (unavailable | 19:40 [facility] | | | + + + +-------+ + + + + | Result panel 459 | + + + + + +------+ + + | | 2022-01-28 | [facility] | 47 | (missing) | (missing) | | (unavailable | 19:40 [facility] | | | + + + +------+ + + + + | Result panel 460 | + + + + + + + + + | | 2022-01-28 | [facility] | YELLOW | (missing) | (missing) | | (unavailable | 19:40 [facility] | | | + + + + + + + + + | Result panel 461 | + + + + + +---------+ + + | | 2022-01-28 | [facility] | CLEAR | (missing) | (missing) | | (unavailable | 19:40 [facility] | | | + + + +---------+ + + + + | Result panel 462 | + + + + + + + + + | | 2022-01-28 | [facility] | NEGATIVE | (missing) | (missing) | | (unavailable | 19:40 [facility] | | | + + + + + + + + + | Result panel 463 | + + + + + + + + + | | 2022-01-28 | [facility] | NEGATIVE | (missing) | (missing) | | (unavailable | 19:40 [facility] | | | + + + + + + + + + | Result panel 464 | + + + + + + + + + | | 2022-01-28 | [facility] | NEGATIVE | (missing) | (missing) | | (unavailable | 19:40 [facility] | | | + + + + + + + + + | Result panel 465 | + + + + + + + + + | | 2022-01-28 | [facility] | >=1.030 | (missing) | (missing) | | (unavailable | 19:40 [facility] | | | + + + + + + + + + | Result panel 466 | + + + + + + + + + | | 2022-01-28 | [facility] | NEGATIVE | (missing) | (missing) | | (unavailable | 19:40 [facility] | | | | + + + + + + + + + | Result panel 467 | + + + + + +-------+ + + | | 2022-01-28 | [facility] | 5.5 | (missing) | (missing) | | (unavailable | 19:40 | [facility] | | | + + + +-------+ + + + + | Result panel 468 | + + + + + + + + + | | 2022-01-28 | [facility] | NEGATIVE | (missing) | (missing) | | (unavailable | 19:40 [facility] | | | + + + + + + + + + | Result panel 469 | + + + + + +-------+ + + | | 2022-01-28 | [facility] | 1.0 | (missing) | (missing) | | (unavailable | 19:40 | [facility] | | | | + + + +-------+ + + + + | Result panel 470 | + + + + + + + + + | | 2022-01-28 | [facility] | NEGATIVE | (missing) | (missing) | | (unavailable | 19:40 [facility] | | | + + + + + + + + + | Result panel 471 | + + + + + + + + + | | 2022-01-28 | [facility] | NEGATIVE | (missing) | (missing) | | (unavailable | 19:40 | [facility] | | | + + + + + + + + + | Result panel 472 | + + + + + + + + + | | 2022-01-28 | [facility] | CLEAN CATCH | (missing) | (missing) | | (unavailable | 19:40 | [facility] | | | + + + + + + + + + | Result panel 473 | + + + + + +-------+ + + | | 2022-01-28 | [facility] | 6.0 | (missing) | (missing) | | (unavailable | 19:40 | [facility] | | | + + + +-------+ + + + + | Result panel 474 | + + + + + +-------+ + + | | 2022-01-28 | [facility] | 2.3 | (missing) | (missing) | | (unavailable | 19:40 [facility] | | | + + + +-------+ + + + + | Result panel 475 | + + + + + +-------+ + + | | 2022-01-28 | [facility] | 3.7 | (missing) | (missing) | | (unavailable | 19:40 [facility] | | | + + + +-------+ + + + + | Result panel 476 | + + + + + +--------+ + + | | 2022-01-28 | [facility] | 0.62 | (missing) | (missing) | | (unavailable | 19:40 [facility] | | | + + + +--------+ + + + + | Result panel 477 | + + + + + +-------+ + + | | 2022-01-28 | [facility] | 0.3 | (missing) | (missing) | | (unavailable | 19:40 [facility] | | | + + + +-------+ + + + + | Result panel 478 | + + + + + +------+ + + | | 2022-01-28 | [facility] | 47 | (missing) | (missing) | | (unavailable | 19:40 [facility] | | | + + + +------+ + + + + | Result panel 479 | + + + + + +------+ + + | | 2022-01-28 | [facility] | 48 | (missing) | (missing) | | (unavailable | 19:40 [facility] | | | + + + +------+ + + + + | Result panel 480 | + + + + + +-------+ + + | | 2022-01-28 | [facility] | 181 | (missing) | (missing) | | (unavailable | 19:40 | [facility] | | | + + + +-------+ + + + + | Result panel 481 | + + + + + + + + + | | 2022-01-28 | [facility] | NEGATIVE | (missing) | (missing) | | (unavailable | 19:40 | [facility] | | | | + + + + + + + + + | Result panel 482 | + + + + + + + + + | | 2022-01-28 | [facility] | POSITIVE | (missing) | (missing) | | (unavailable | 19:40 | [facility] | | | | + + + + + + + + + | Result panel 483 | + + + + + + + + + | | 2022-01-28 | [facility] | NEGATIVE | (missing) | (missing) | | (unavailable | 19:40 | [facility] | | | | + + + + + + + + + | Result panel 484 | + + + + + + + + + | | 2022-01-28 | [facility] | NEGATIVE | (missing) | (missing) | | (unavailable | 19:40 | [facility] | | | | + + + + + + + + + | Result panel 485 | + + + + + + + + + | | 2022-01-28 | [facility] | NEGATIVE | (missing) | (missing) | | (unavailable | 19:40 | [facility] | | | | + + + + + + + + + | Result panel 486 | + + + + + + + + + | | 2022-01-28 | [facility] | NEGATIVE | (missing) | (missing) | | (unavailable | 19:40 | [facility] | | | | + + + + + + + + + | Result panel 487 | + + + + + + + + + | | 2022-01-28 | [facility] | NEGATIVE | (missing) | (missing) | | (unavailable | 19:40 | [facility] | | | | + + + + + + + + + | Result panel 488 | + + + + + + + + + | | 2022-01-28 | [facility] | NEGATIVE | (missing) | (missing) | | (unavailable | 19:40 | [facility] | | | + + + + + + + + + | Result panel 489 | + + + + + + + + + | | 2022-01-28 | [facility] | NEGATIVE | (missing) | (missing) | | (unavailable | 19:40 | [facility] | | | | + + + + + + + + + | Result panel 490 | + + + + + + + + + | | 2022-01-28 | [facility] | POSITIVE | (missing) | (missing) | | (unavailable | 19:40 | [facility] | | | | + + + + + + + + + | Result panel 491 | + + + + + + + + + | | 2022-01-28 | [facility] | NEGATIVE | (missing) | (missing) | | (unavailable | 19:40 | [facility] | | | + + + + + + + + + | Result panel 492 | + + + + + + + + + | | 2022-01-28 | [facility] | NEGATIVE | (missing) | (missing) | | (unavailable | 19:40 | [facility] | | | | + + + + + + + + + | Result panel 493 | + + + + + + + + + | | 2022-01-28 | [facility] | NEGATIVE | (missing) | (missing) | | (unavailable | 19:40 | [facility] | | | + + + + + + + + + | Result panel 494 | + + + + + +------+ + + | | 2022-01-28 | [facility] | 47 | (missing) | (missing) | | (unavailable | 19:40 | [facility] | | | + + + +------+ + + + + | Result panel 495 | + + + + + + + + + | | 2022-01-28 | [facility] | YELLOW | (missing) | (missing) | | (unavailable | 19:40 [facility] | | | + + + + + + + + + | Result panel 496 | + + + + + +---------+ + + | | 2022-01-28 | [facility] | CLEAR | (missing) | (missing) | | (unavailable | 19:40 [facility] | | | + + + +---------+ + + + + | Result panel 497 | + + + + + + + + + | | 2022-01-28 | [facility] | NEGATIVE | (missing) | (missing) | | (unavailable | 19:40 [facility] | | | + + + + + + + + + | Result panel 498 | + + + + + + + + + | | 2022-01-28 | [facility] | NEGATIVE | (missing) | (missing) | | (unavailable | 19:40 | [facility] | | | + + + + + + + + + | Result panel 499 | + + + + + + + + + | | 2022-01-28 | [facility] | NEGATIVE | (missing) | (missing) | | (unavailable | 19:40 [facility] | | | + + + + + + + + + | Result panel 500 | + + + + + + + + + | | 2022-01-28 | [facility] | >=1.030 | (missing) | (missing) | | (unavailable | 19:40 [facility] | | | + + + + + + + + + | Result panel 501 | + + + + + + + + + | | 2022-01-28 | [facility] | NEGATIVE | (missing) | (missing) | | (unavailable | 19:40 [facility] | | | + + + + + + + + + | Result panel 502 | + + + + + +-------+ + + | | 2022-01-28 | [facility] | 5.5 | (missing) | (missing) | | (unavailable | 19:40 [facility] | | | + + + +-------+ + + + + | Result panel 503 | + + + + + + + + + | | 2022-01-28 | [facility] | NEGATIVE | (missing) | (missing) | | (unavailable | 19:40 [facility] | | | + + + + + + + + + | Result panel 504 | + + + + + +-------+ + + | | 2022-01-28 | [facility] | 1.0 | (missing) | (missing) | | (unavailable | 19:40 | [facility] | | | + + + +-------+ + + + + | Result panel 505 | + + + + + + + + + | | 2022-01-28 | [facility] | NEGATIVE | (missing) | (missing) | | (unavailable | 19:40 | [facility] | | | + + + + + + + + + | Result panel 506 | + + + + + + + + + | | 2022-01-28 | [facility] | NEGATIVE | (missing) | (missing) | | (unavailable | 19:40 [facility] | | | + + + + + + + + + | Result panel 507 | + + + + + + + + + | | 2022-01-28 | [facility] | CLEAN CATCH | (missing) | (missing) | | (unavailable | 19:40 | [facility] | | | | + + + + + + + + + | Result panel 508 | + + + + + +-------+ + + | | 2022-01-28 | [facility] | 6.0 | (missing) | (missing) | | (unavailable | 19:40 [facility] | | | + + + +-------+ + + + + | Result panel 509 | + + + + + +-------+ + + | | 2022-01-28 | [facility] | 2.3 | (missing) | (missing) | | (unavailable | 19:40 [facility] | | | + + + +-------+ + + + + | Result panel 510 | + + + + + +-------+ + + | | 2022-01-28 | [facility] | 3.7 | (missing) | (missing) | | (unavailable | 19:40 [facility] | | | + + + +-------+ + + + + | Result panel 511 | + + + + + +--------+ + + | | 2022-01-28 | [facility] | 0.62 | (missing) | (missing) | | (unavailable | 19:40 [facility] | | | + + + +--------+ + + + + | Result panel 512 | + + + + + +-------+ + + | | 2022-01-28 | [facility] | 0.3 | (missing) | (missing) | | (unavailable | 19:40 [facility] | | | + + + +-------+ + + + + | Result panel 513 | + + + + + +------+ + + | | 2022-01-28 | [facility] | 47 | (missing) | (missing) | | (unavailable | 19:40 [facility] | | | + + + +------+ + + + + | Result panel 514 | + + + + + +------+ + + | | 2022-01-28 | [facility] | 48 | (missing) | (missing) | | (unavailable | 19:40 [facility] | | | + + + +------+ + + + + | Result panel 515 | + + + + + +-------+ + + | | 2022-01-28 | [facility] | 181 | (missing) | (missing) | | (unavailable | 19:40 [facility] | | | + + + +-------+ + + + + | Result panel 516 | + + + + + + + + + | | 2022-01-28 | [facility] | NEGATIVE | (missing) | (missing) | | (unavailable | 19:40 [facility] | | | + + + + + + + + + | Result panel 517 | + + + + + + + + + | | 2022-01-28 | [facility] | POSITIVE | (missing) | (missing) | | (unavailable | 19:40 [facility] | | | | + + + + + + + + + | Result panel 518 | + + + + + + + + + | | 2022-01-28 | [facility] | NEGATIVE | (missing) | (missing) | | (unavailable | 19:40 [facility] | | | | + + + + + + + + + | Result panel 519 | + + + + + + + + + | | 2022-01-28 | [facility] | NEGATIVE | (missing) | (missing) | | (unavailable | 19:40 [facility] | | | | + + + + + + + + + | Result panel 520 | + + + + + + + + + | | 2022-01-28 | [facility] | NEGATIVE | (missing) | (missing) | | (unavailable | 19:40 [facility] | | | | + + + + + + + + + | Result panel 521 | + + + + + + + + + | | 2022-01-28 | [facility] | NEGATIVE | (missing) | (missing) | | (unavailable | 19:40 [facility] | | | | + + + + + + + + + | Result panel 522 | + + + + + + + + + | | 2022-01-28 | [facility] | NEGATIVE | (missing) | (missing) | | (unavailable | 19:40 [facility] | | | | + + + + + + + + + | Result panel 523 | + + + + + + + + + | | 2022-01-28 | [facility] | NEGATIVE | (missing) | (missing) | | (unavailable | 19:40 [facility] | | | | + + + + + + + + + | Result panel 524 | + + + + + + + + + | | 2022-01-28 | [facility] | NEGATIVE | (missing) | (missing) | | (unavailable | 19:40 [facility] | | | + + + + + + + + + | Result panel 525 | + + + + + + + + + | | 2022-01-28 | [facility] | POSITIVE | (missing) | (missing) | | (unavailable | 19:40 [facility] | | | + + + + + + + + + | Result panel 526 | + + + + + + + + + | | 2022-01-28 | [facility] | NEGATIVE | (missing) | (missing) | | (unavailable | 19:40 [facility] | | | + + + + + + + + + | Result panel 527 | + + + + + + + + + | | 2022-01-28 | [facility] | NEGATIVE | (missing) | (missing) | | (unavailable | 19:40 [facility] | | | + + + + + + + + + | Result panel 528 | + + + + + + + + + | | 2022-01-28 | [facility] | NEGATIVE | (missing) | (missing) | | (unavailable | 19:40 [facility] | | | + + + + + + + + + | Result panel 529 | + + + + + +------+ + + | | 2022-01-28 | [facility] | 47 | (missing) | (missing) | | (unavailable | 19:40 [facility] | | | + + + +------+ + + + + | Result panel 530 | + + + + + + + + + | | 2022-01-28 | [facility] | YELLOW | (missing) | (missing) | | (unavailable | 19:40 [facility] | | | + + + + + + + + + | Result panel 531 | + + + + + +---------+ + + | | 2022-01-28 | [facility] | CLEAR | (missing) | (missing) | | (unavailable | 19:40 [facility] | | | + + + +---------+ + + + + | Result panel 532 | + + + + + + + + + | | 2022-01-28 | [facility] | NEGATIVE | (missing) | (missing) | | (unavailable | 19:40 [facility] | | | + + + + + + + + + | Result panel 533 | + + + + + + + + + | | 2022-01-28 | [facility] | NEGATIVE | (missing) | (missing) | | (unavailable | 19:40 [facility] | | | + + + + + + + + + | Result panel 534 | + + + + + + + + + | | 2022-01-28 | [facility] | NEGATIVE | (missing) | (missing) | | (unavailable | 19:40 [facility] | | | + + + + + + + + + | Result panel 535 | + + + + + + + + + | | 2022-01-28 | [facility] | >=1.030 | (missing) | (missing) | | (unavailable | 19:40 [facility] | | | + + + + + + + + + | Result panel 536 | + + + + + + + + + | | 2022-01-28 | [facility] | NEGATIVE | (missing) | (missing) | | (unavailable | 19:40 [facility] | | | | + + + + + + + + + | Result panel 537 | + + + + + +-------+ + + | | 2022-01-28 | [facility] | 5.5 | (missing) | (missing) | | (unavailable | 19:40 [facility] | | | | + + + +-------+ + + + + | Result panel 538 | + + + + + + + + + | | 2022-01-28 | [facility] | NEGATIVE | (missing) | (missing) | | (unavailable | 19:40 [facility] | | | | + + + + + + + + + | Result panel 539 | + + + + + +-------+ + + | | 2022-01-28 | [facility] | 1.0 | (missing) | (missing) | | (unavailable | 19:40 [facility] | | | | + + + +-------+ + + + + | Result panel 540 | + + + + + + + + + | | 2022-01-28 | [facility] | NEGATIVE | (missing) | (missing) | | (unavailable | 19:40 [facility] | | | | + + + + + + + + + | Result panel 541 | + + + + + + + + + | | 2022-01-28 | [facility] | NEGATIVE | (missing) | (missing) | | (unavailable | 19:40 [facility] | | | | + + + + + + + + + | Result panel 542 | + + + + + + + + + | | 2022-01-28 | [facility] | CLEAN CATCH | (missing) | (missing) | | (unavailable | 19:40 [facility] | | | | + + + + + + + + + | Result panel 543 | + + + + + +------+ + + | | 2022-01-28 | [facility] | 47 | (missing) | (missing) | | (unavailable | 19:40 [facility] | | | | + + + +------+ + + + + | Result panel 544 | + + + + + + + + + | | 2022-01-28 | [facility] | YELLOW | (missing) | (missing) | | (unavailable | 19:40 [facility] | | | | + + + + + + + + + | Result panel 545 | + + + + + +---------+ + + | | 2022-01-28 | [facility] | CLEAR | (missing) | (missing) | | (unavailable | 19:40 [facility] | | | | + + + +---------+ + + + + | Result panel 546 | + + + + + + + + + | | 2022-01-28 | [facility] | NEGATIVE | (missing) | (missing) | | (unavailable | 19:40 [facility] | | | | + + + + + + + + + | Result panel 547 | + + + + + + + + + | | 2022-01-28 | [facility] | NEGATIVE | (missing) | (missing) | | (unavailable | 19:40 [facility] | | | | + + + + + + + + + | Result panel 548 | + + + + + + + + + | | 2022-01-28 | [facility] | NEGATIVE | (missing) | (missing) | | (unavailable | 19:40 [facility] | | | + + + + + + + + + | Result panel 549 | + + + + + + + + + | | 2022-01-28 | [facility] | >=1.030 | (missing) | (missing) | | (unavailable | 19:40 [facility] | | | | + + + + + + + + + | Result panel 550 | + + + + + + + + + | | 2022-01-28 | [facility] | NEGATIVE | (missing) | (missing) | | (unavailable | 19:40 [facility] | | | | + + + + + + + + + | Result panel 551 | + + + + + +-------+---------+ + | | 2022-01-29 | [facility] | 5.3 | mg/dL | (missing) | | (unavailable | 08:55 | [facility] | | | | + + + +-------+---------+ + + + | Result panel 552 | + + + + + +-------+---------+ + | | 2022-01-29 | [facility] | 5.3 | mg/dL | (missing) | | (unavailable | 08:55 | [facility] | | | | + + + +-------+---------+ + + + | Result panel 553 | + + + + + +-------+---------+ + | | 2022-01-29 | [facility] | 5.3 | mg/dL | (missing) | | (unavailable | 08:55 [facility] | | | | + + + +-------+---------+ + + + | Result panel 554 | + + + + + +-------+---------+ + | | 2022-01-29 | [facility] | 5.3 | mg/dL | (missing) | | (unavailable | 08:55 [facility] | | | | + + + +-------+---------+ + + + | Result panel 555 | + + + + + +-------+---------+ + | | 2022-01-29 | [facility] | 5.3 | mg/dL | (missing) | | (unavailable | 08:55 [facility] | | | | + + + +-------+---------+ + + + | Result panel 556 | + + + + + +-------+---------+ + | | 2022-01-29 | [facility] | 5.3 | mg/dL | (missing) | | (unavailable | 08:55 [facility] | | | | + + + +-------+---------+ + + + | Result panel 557 | + + + + + +-------+---------+ + | | 2022-01-29 | [facility] | 5.3 | mg/dL | (missing) | | (unavailable | 08:55 [facility] | | | | + + + +-------+---------+ + + + | Result panel 558 | + + + + + +-------+---------+ + | | 2022-01-29 | [facility] | 5.3 | mg/dL | (missing) | | (unavailable | 08:55 [facility] | | | | + + + +-------+---------+ + + + | Result panel 559 | + + + + + +-------+---------+ + | | 2022-01-29 | [facility] | 5.3 | mg/dL | (missing) | | (unavailable | 08:55 [facility] | | | | + + + +-------+---------+ + + + | Result panel 560 | + + + + + +-------+---------+ + | | 2022-01-29 | [facility] | 5.3 | mg/dL | (missing) | | (unavailable | 08:55 [facility] | | | | + + + +-------+---------+ + + + | Result panel 561 | + + + + + +-------+---------+ + | | 2022-01-29 | [facility] | 5.3 | mg/dL | (missing) | | (unavailable | 08:55 [facility] | | | | + + + +-------+---------+ + + + | Result panel 562 | + + + + + +-------+---------+ + | | 2022-01-30 | [facility] | 5.2 | mg/dL | (missing) | | (unavailable | 05:36 | [facility] | | | | + + + +-------+---------+ + + + | Result panel 563 | + + + + + +-------+---------+ + | | 2022-01-30 | [facility] | 124 | mg/dL | (missing) | | (unavailable | 05:36 | [facility] | | | | + + + +-------+---------+ + + + | Result panel 564 | + + + + + +------+---------+ + | | 2022-01-30 | [facility] | 19 | mg/dL | (missing) | | (unavailable | 05:36 | [facility] | | | | + + + +------+---------+ + + + | Result panel 565 | + + + + + +--------+---------+ + | | 2022-01-30 | [facility] | 0.88 | mg/dL | (missing) | | (unavailable | 05:36 | [facility] | | | | + + + +--------+---------+ + + + | Result panel 566 | + + + + + +-------+ + + | | 2022-01-30 | [facility] | 103 | (missing) | (missing) | | (unavailable | 05:36 | [facility] | | | | + + + +-------+ + + + + | Result panel 567 | + + + + + +---------+ + + | | 2022-01-30 | [facility] | 21.59 | (missing) | (missing) | | (unavailable | 05:36 | [facility] | | | | + + + +---------+ + + + + | Result panel 568 | + + + + + +-------+ + + | | 2022-01-30 | [facility] | 135 | (missing) | (missing) | | (unavailable | 05:36 | [facility] | | | | + + + +-------+ + + + + | Result panel 569 | + + + + + +-------+ + + | | 2022-01-30 | [facility] | 4.7 | (missing) | (missing) | | (unavailable | 05:36 | [facility] | | | | + + + +-------+ + + + + | Result panel 570 | + + + + + +-------+ + + | | 2022-01-30 | [facility] | 102 | (missing) | (missing) | | (unavailable | 05:36 | [facility] | | | | + + + +-------+ + + + + | Result panel 571 | + + + + + +------+ + + | | 2022-01-30 | [facility] | 28 | (missing) | (missing) | | (unavailable | 05:36 | [facility] | | | | + + + +------+ + + + + | Result panel 572 | + + + + + +-------+ + + | | 2022-01-30 | [facility] | 9.7 | (missing) | (missing) | | (unavailable | 05:36 | [facility] | | | | + + + +-------+ + + + + | Result panel 573 | + + + + + +-------+---------+ + | | 2022-01-30 | [facility] | 8.1 | mg/dL | (missing) | | (unavailable | 05:36 | [facility] | | | | + + + +-------+---------+ + + + | Result panel 574 | + + + + + +-------+---------+ + | | 2022-01-30 | [facility] | 5.2 | mg/dL | (missing) | | (unavailable | 05:36 | [facility] | | | | + + + +-------+---------+ + + + | Result panel 575 | + + + + + +-------+---------+ + | | 2022-01-30 | [facility] | 124 | mg/dL | (missing) | | (unavailable | 05:36 | [facility] | | | | + + + +-------+---------+ + + + | Result panel 576 | + + + + + +------+---------+ + | | 2022-01-30 | [facility] | 19 | mg/dL | (missing) | | (unavailable | 05:36 | [facility] | | | | + + + +------+---------+ + + + | Result panel 577 | + + + + + +--------+---------+ + | | 2022-01-30 | [facility] | 0.88 | mg/dL | (missing) | | (unavailable | 05:36 | [facility] | | | | + + + +--------+---------+ + + + | Result panel 578 | + + + + + +-------+ + + | | 2022-01-30 | [facility] | 103 | (missing) | (missing) | | (unavailable | 05:36 | [facility] | | | | + + + +-------+ + + + + | Result panel 579 | + + + + + +---------+ + + | | 2022-01-30 | [facility] | 21.59 | (missing) | (missing) | | (unavailable | 05:36 | [facility] | | | | + + + +---------+ + + + + | Result panel 580 | + + + + + +-------+ + + | | 2022-01-30 | [facility] | 135 | (missing) | (missing) | | (unavailable | 05:36 | [facility] | | | | + + + +-------+ + + + + | Result panel 581 | + + + + + +-------+ + + | | 2022-01-30 | [facility] | 4.7 | (missing) | (missing) | | (unavailable | 05:36 [facility] | | | + + + +-------+ + + + + | Result panel 582 | + + + + + +-------+ + + | | 2022-01-30 | [facility] | 102 | (missing) | (missing) | | (unavailable | 05:36 [facility] | | | + + + +-------+ + + + + | Result panel 583 | + + + + + +------+ + + | | 2022-01-30 | [facility] | 28 | (missing) | (missing) | | (unavailable | 05:36 [facility] | | | + + + +------+ + + + + | Result panel 584 | + + + + + +-------+ + + | | 2022-01-30 | [facility] | 9.7 | (missing) | (missing) | | (unavailable | 05:36 [facility] | | | + + + +-------+ + + + + | Result panel 585 | + + + + + +-------+---------+ + | | 2022-01-30 | [facility] | 8.1 | mg/dL | (missing) | | (unavailable | 05:36 [facility] | | | + + + +-------+---------+ + + + | Result panel 586 | + + + + + +-------+---------+ + | | 2022-01-30 | [facility] | 5.2 | mg/dL | (missing) | | (unavailable | 05:36 [facility] | | | + + + +-------+---------+ + + + | Result panel 587 | + + + + + +-------+---------+ + | | 2022-01-30 | [facility] | 124 | mg/dL | (missing) | | (unavailable | 05:36 [facility] | | | + + + +-------+---------+ + + + | Result panel 588 | + + + + + +------+---------+ + | | 2022-01-30 | [facility] | 19 | mg/dL | (missing) | | (unavailable | 05:36 [facility] | | | + + + +------+---------+ + + + | Result panel 589 | + + + + + +--------+---------+ + | | 2022-01-30 | [facility] | 0.88 | mg/dL | (missing) | | (unavailable | 05:36 [facility] | | | + + + +--------+---------+ + + + | Result panel 590 | + + + + + +-------+ + + | | 2022-01-30 | [facility] | 103 | (missing) | (missing) | | (unavailable | 05:36 [facility] | | | + + + +-------+ + + + + | Result panel 591 | + + + + + +---------+ + + | | 2022-01-30 | [facility] | 21.59 | (missing) | (missing) | | (unavailable | 05:36 [facility] | | | + + + +---------+ + + + + | Result panel 592 | + + + + + +-------+ + + | | 2022-01-30 | [facility] | 135 | (missing) | (missing) | | (unavailable | 05:36 [facility] | | | + + + +-------+ + + + + | Result panel 593 | + + + + + +-------+ + + | | 2022-01-30 | [facility] | 4.7 | (missing) | (missing) | | (unavailable | 05:36 [facility] | | | + + + +-------+ + + + + | Result panel 594 | + + + + + +-------+ + + | | 2022-01-30 | [facility] | 102 | (missing) | (missing) | | (unavailable | 05:36 [facility] | | | + + + +-------+ + + + + | Result panel 595 | + + + + + +------+ + + | | 2022-01-30 | [facility] | 28 | (missing) | (missing) | | (unavailable | 05:36 [facility] | | | + + + +------+ + + + + | Result panel 596 | + + + + + +-------+ + + | | 2022-01-30 | [facility] | 9.7 | (missing) | (missing) | | (unavailable | 05:36 [facility] | | | + + + +-------+ + + + + | Result panel 597 | + + + + + +-------+---------+ + | | 2022-01-30 | [facility] | 8.1 | mg/dL | (missing) | | (unavailable | 05:36 [facility] | | | + + + +-------+---------+ + + + | Result panel 598 | + + + + + +-------+---------+ + | | 2022-01-30 | [facility] | 5.2 | mg/dL | (missing) | | (unavailable | 05:36 | [facility] | | | + + + +-------+---------+ + + + | Result panel 599 | + + + + + +-------+---------+ + | | 2022-01-30 | [facility] | 124 | mg/dL | (missing) | | (unavailable | 05:36 | [facility] | | | + + + +-------+---------+ + + + | Result panel 600 | + + + + + +------+---------+ + | | 2022-01-30 | [facility] | 19 | mg/dL | (missing) | | (unavailable | 05:36 [facility] | | | + + + +------+---------+ + + + | Result panel 601 | + + + + + +--------+---------+ + | | 2022-01-30 | [facility] | 0.88 | mg/dL | (missing) | | (unavailable | 05:36 [facility] | | | + + + +--------+---------+ + + + | Result panel 602 | + + + + + +-------+ + + | | 2022-01-30 | [facility] | 103 | (missing) | (missing) | | (unavailable | 05:36 [facility] | | | + + + +-------+ + + + + | Result panel 603 | + + + + + +---------+ + + | | 2022-01-30 | [facility] | 21.59 | (missing) | (missing) | | (unavailable | 05:36 [facility] | | | + + + +---------+ + + + + | Result panel 604 | + + + + + +-------+ + + | | 2022-01-30 | [facility] | 135 | (missing) | (missing) | | (unavailable | 05:36 [facility] | | | + + + +-------+ + + + + | Result panel 605 | + + + + + +-------+ + + | | 2022-01-30 | [facility] | 4.7 | (missing) | (missing) | | (unavailable | 05:36 [facility] | | | + + + +-------+ + + + + | Result panel 606 | + + + + + +-------+ + + | | 2022-01-30 | [facility] | 102 | (missing) | (missing) | | (unavailable | 05:36 [facility] | | | + + + +-------+ + + + + | Result panel 607 | + + + + + +------+ + + | | 2022-01-30 | [facility] | 28 | (missing) | (missing) | | (unavailable | 05:36 [facility] | | | + + + +------+ + + + + | Result panel 608 | + + + + + +-------+ + + | | 2022-01-30 | [facility] | 9.7 | (missing) | (missing) | | (unavailable | 05:36 [facility] | | | + + + +-------+ + + + + | Result panel 609 | + + + + + +-------+---------+ + | | 2022-01-30 | [facility] | 8.1 | mg/dL | (missing) | | (unavailable | 05:36 [facility] | | | + + + +-------+---------+ + + + | Result panel 610 | + + + + + +-------+---------+ + | | 2022-01-30 | [facility] | 5.2 | mg/dL | (missing) | | (unavailable | 05:36 [facility] | | | + + + +-------+---------+ + + + | Result panel 611 | + + + + + +-------+---------+ + | | 2022-01-30 | [facility] | 124 | mg/dL | (missing) | | (unavailable | 05:36 [facility] | | | + + + +-------+---------+ + + + | Result panel 612 | + + + + + +------+---------+ + | | 2022-01-30 | [facility] | 19 | mg/dL | (missing) | | (unavailable | 05:36 [facility] | | | + + + +------+---------+ + + + | Result panel 613 | + + + + + +--------+---------+ + | | 2022-01-30 | [facility] | 0.88 | mg/dL | (missing) | | (unavailable | 05:36 [facility] | | | + + + +--------+---------+ + + + | Result panel 614 | + + + + + +-------+ + + | | 2022-01-30 | [facility] | 103 | (missing) | (missing) | | (unavailable | 05:36 [facility] | | | + + + +-------+ + + + + | Result panel 615 | + + + + + +---------+ + + | | 2022-01-30 | [facility] | 21.59 | (missing) | (missing) | | (unavailable | 05:36 [facility] | | | + + + +---------+ + + + + | Result panel 616 | + + + + + +-------+ + + | | 2022-01-30 | [facility] | 135 | (missing) | (missing) | | (unavailable | 05:36 [facility] | | | + + + +-------+ + + + + | Result panel 617 | + + + + + +-------+ + + | | 2022-01-30 | [facility] | 4.7 | (missing) | (missing) | | (unavailable | 05:36 [facility] | | | + + + +-------+ + + + + | Result panel 618 | + + + + + +-------+ + + | | 2022-01-30 | [facility] | 102 | (missing) | (missing) | | (unavailable | 05:36 | [facility] | | | + + + +-------+ + + + + | Result panel 619 | + + + + + +------+ + + | | 2022-01-30 | [facility] | 28 | (missing) | (missing) | | (unavailable | 05:36 [facility] | | | + + + +------+ + + + + | Result panel 620 | + + + + + +-------+ + + | | 2022-01-30 | [facility] | 9.7 | (missing) | (missing) | | (unavailable | 05:36 [facility] | | | + + + +-------+ + + + + | Result panel 621 | + + + + + +-------+---------+ + | | 2022-01-30 | [facility] | 8.1 | mg/dL | (missing) | | (unavailable | 05:36 [facility] | | | + + + +-------+---------+ + + + | Result panel 622 | + + + + + +-------+---------+ + | | 2022-01-30 | [facility] | 5.2 | mg/dL | (missing) | | (unavailable | 05:36 [facility] | | | + + + +-------+---------+ + + + | Result panel 623 | + + + + + +-------+---------+ + | | 2022-01-30 | [facility] | 124 | mg/dL | (missing) | | (unavailable | 05:36 [facility] | | | + + + +-------+---------+ + + + | Result panel 624 | + + + + + +------+---------+ + | | 2022-01-30 | [facility] | 19 | mg/dL | (missing) | | (unavailable | 05:36 [facility] | | | + + + +------+---------+ + + + | Result panel 625 | + + + + + +--------+---------+ + | | 2022-01-30 | [facility] | 0.88 | mg/dL | (missing) | | (unavailable | 05:36 [facility] | | | + + + +--------+---------+ + + + | Result panel 626 | + + + + + +-------+ + + | | 2022-01-30 | [facility] | 103 | (missing) | (missing) | | (unavailable | 05:36 [facility] | | | + + + +-------+ + + + + | Result panel 627 | + + + + + +---------+ + + | | 2022-01-30 | [facility] | 21.59 | (missing) | (missing) | | (unavailable | 05:36 [facility] | | | + + + +---------+ + + + + | Result panel 628 | + + + + + +-------+ + + | | 2022-01-30 | [facility] | 135 | (missing) | (missing) | | (unavailable | 05:36 [facility] | | | + + + +-------+ + + + + | Result panel 629 | + + + + + +-------+ + + | | 2022-01-30 | [facility] | 4.7 | (missing) | (missing) | | (unavailable | 05:36 [facility] | | | + + + +-------+ + + + + | Result panel 630 | + + + + + +-------+ + + | | 2022-01-30 | [facility] | 102 | (missing) | (missing) | | (unavailable | 05:36 [facility] | | | + + + +-------+ + + + + | Result panel 631 | + + + + + +------+ + + | | 2022-01-30 | [facility] | 28 | (missing) | (missing) | | (unavailable | 05:36 [facility] | | | + + + +------+ + + + + | Result panel 632 | + + + + + +-------+ + + | | 2022-01-30 | [facility] | 9.7 | (missing) | (missing) | | (unavailable | 05:36 [facility] | | | + + + +-------+ + + + + | Result panel 633 | + + + + + +-------+---------+ + | | 2022-01-30 | [facility] | 8.1 | mg/dL | (missing) | | (unavailable | 05:36 [facility] | | | + + + +-------+---------+ + + + | Result panel 634 | + + + + + +-------+---------+ + | | 2022-01-30 | [facility] | 5.2 | mg/dL | (missing) | | (unavailable | 05:36 [facility] | | | + + + +-------+---------+ + + + | Result panel 635 | + + + + + +-------+---------+ + | | 2022-01-30 | [facility] | 124 | mg/dL | (missing) | | (unavailable | 05:36 [facility] | | | + + + +-------+---------+ + + + | Result panel 636 | + + + + + +------+---------+ + | | 2022-01-30 | [facility] | 19 | mg/dL | (missing) | | (unavailable | 05:36 [facility] | | | + + + +------+---------+ + + + | Result panel 637 | + + + + + +--------+---------+ + | | 2022-01-30 | [facility] | 0.88 | mg/dL | (missing) | | (unavailable | 05:36 [facility] | | | + + + +--------+---------+ + + + | Result panel 638 | + + + + + +-------+ + + | | 2022-01-30 | [facility] | 103 | (missing) | (missing) | | (unavailable | 05:36 [facility] | | | + + + +-------+ + + + + | Result panel 639 | + + + + + +---------+ + + | | 2022-01-30 | [facility] | 21.59 | (missing) | (missing) | | (unavailable | 05:36 [facility] | | | + + + +---------+ + + + + | Result panel 640 | + + + + + +-------+ + + | | 2022-01-30 | [facility] | 135 | (missing) | (missing) | | (unavailable | 05:36 [facility] | | | + + + +-------+ + + + + | Result panel 641 | + + + + + +-------+ + + | | 2022-01-30 | [facility] | 4.7 | (missing) | (missing) | | (unavailable | 05:36 [facility] | | | + + + +-------+ + + + + | Result panel 642 | + + + + + +-------+ + + | | 2022-01-30 | [facility] | 102 | (missing) | (missing) | | (unavailable | 05:36 [facility] | | | + + + +-------+ + + + + | Result panel 643 | + + + + + +------+ + + | | 2022-01-30 | [facility] | 28 | (missing) | (missing) | | (unavailable | 05:36 [facility] | | | + + + +------+ + + + + | Result panel 644 | + + + + + +-------+ + + | | 2022-01-30 | [facility] | 9.7 | (missing) | (missing) | | (unavailable | 05:36 [facility] | | | + + + +-------+ + + + + | Result panel 645 | + + + + + +-------+---------+ + | | 2022-01-30 | [facility] | 8.1 | mg/dL | (missing) | | (unavailable | 05:36 [facility] | | | + + + +-------+---------+ + + + | Result panel 646 | + + + + + +-------+---------+ + | | 2022-01-30 | [facility] | 5.2 | mg/dL | (missing) | | (unavailable | 05:36 [facility] | | | + + + +-------+---------+ + + + | Result panel 647 | + + + + + +-------+---------+ + | | 2022-01-30 | [facility] | 124 | mg/dL | (missing) | | (unavailable | 05:36 [facility] | | | + + + +-------+---------+ + + + | Result panel 648 | + + + + + +------+---------+ + | | 2022-01-30 | [facility] | 19 | mg/dL | (missing) | | (unavailable | 05:36 [facility] | | | + + + +------+---------+ + + + | Result panel 649 | + + + + + +--------+---------+ + | | 2022-01-30 | [facility] | 0.88 | mg/dL | (missing) | | (unavailable | 05:36 [facility] | | | + + + +--------+---------+ + + + | Result panel 650 | + + + + + +-------+ + + | | 2022-01-30 | [facility] | 103 | (missing) | (missing) | | (unavailable | 05:36 [facility] | | | + + + +-------+ + + + + | Result panel 651 | + + + + + +---------+ + + | | 2022-01-30 | [facility] | 21.59 | (missing) | (missing) | | (unavailable | 05:36 [facility] | | | + + + +---------+ + + + + | Result panel 652 | + + + + + +-------+ + + | | 2022-01-30 | [facility] | 135 | (missing) | (missing) | | (unavailable | 05:36 [facility] | | | + + + +-------+ + + + + | Result panel 653 | + + + + + +-------+ + + | | 2022-01-30 | [facility] | 4.7 | (missing) | (missing) | | (unavailable | 05:36 [facility] | | | + + + +-------+ + + + + | Result panel 654 | + + + + + +-------+ + + | | 2022-01-30 | [facility] | 102 | (missing) | (missing) | | (unavailable | 05:36 [facility] | | | + + + +-------+ + + + + | Result panel 655 | + + + + + +------+ + + | | 2022-01-30 | [facility] | 28 | (missing) | (missing) | | (unavailable | 05:36 [facility] | | | + + + +------+ + + + + | Result panel 656 | + + + + + +-------+ + + | | 2022-01-30 | [facility] | 9.7 | (missing) | (missing) | | (unavailable | 05:36 [facility] | | | + + + +-------+ + + + + | Result panel 657 | + + + + + +-------+---------+ + | | 2022-01-30 | [facility] | 8.1 | mg/dL | (missing) | | (unavailable | 05:36 [facility] | | | + + + +-------+---------+ + + + | Result panel 658 | + + + + + +-------+---------+ + | | 2022-01-30 | [facility] | 5.2 | mg/dL | (missing) | | (unavailable | 05:36 [facility] | | | + + + +-------+---------+ + + + | Result panel 659 | + + + + + +-------+---------+ + | | 2022-01-30 | [facility] | 5.2 | mg/dL | (missing) | | (unavailable | 05:36 [facility] | | | + + + +-------+---------+ + + + | Result panel 660 | + + + + + +-------+---------+ + | | 2022-01-30 | [facility] | 5.2 | mg/dL | (missing) | | (unavailable | 05:36 [facility] | | | + + + +-------+---------+ + + + | Result panel 661 | + + + + + +-------+---------+ + | | 2022-01-30 | [facility] | 5.2 | mg/dL | (missing) | | (unavailable | 05:36 [facility] | | | + + + +-------+---------+ + + + | Result panel 662 | + + + + + +--------+ + + | | 2022-01-31 | [facility] | 11.0 | (missing) | (missing) | | (unavailable | 07:21 | [facility] | | | + + + +--------+ + + + + | Result panel 663 | + + + + + +------+ + + | | 2022-01-31 | [facility] | // | (missing) | (missing) | | (unavailable | 07:21 | [facility] | | | + + + +------+ + + + + | Result panel 664 | + + + + + +--------+ + + | | 2022-01-31 | [facility] | 11.0 | (missing) | (missing) | | (unavailable | 07:21 [facility] | | | + + + +--------+ + + + + | Result panel 665 | + + + + + +------+ + + | | 2022-01-31 | [facility] | // | (missing) | (missing) | | (unavailable | 07:21 [facility] | | | + + + +------+ + + + + | Result panel 666 | + + + + + +--------+ + + | | 2022-01-31 | [facility] | 11.0 | (missing) | (missing) | | (unavailable | 07:21 [facility] | | | + + + +--------+ + + + + | Result panel 667 | + + + + + +------+ + + | | 2022-01-31 | [facility] | // | (missing) | (missing) | | (unavailable | 07:21 [facility] | | | + + + +------+ + + + + | Result panel 668 | + + + + + +--------+ + + | | 2022-01-31 | [facility] | 11.0 | (missing) | (missing) | | (unavailable | 07:21 [facility] | | | + + + +--------+ + + + + | Result panel 669 | + + + + + +------+ + + | | 2022-01-31 | [facility] | // | (missing) | (missing) | | (unavailable | 07:21 [facility] | | | + + + +------+ + + + + | Result panel 670 | + + + + + +--------+ + + | | 2022-01-31 | [facility] | 11.0 | (missing) | (missing) | | (unavailable | 07:21 [facility] | | | + + + +--------+ + + + + | Result panel 671 | + + + + + +------+ + + | | 2022-01-31 | [facility] | // | (missing) | (missing) | | (unavailable | 07:21 [facility] | | | + + + +------+ + + + + | Result panel 672 | + + + + + +--------+ + + | | 2022-01-31 | [facility] | 11.0 | (missing) | (missing) | | (unavailable | 07:21 [facility] | | | + + + +--------+ + + + + | Result panel 673 | + + + + + +------+ + + | | 2022-01-31 | [facility] | // | (missing) | (missing) | | (unavailable | 07:21 [facility] | | | + + + +------+ + + + + | Result panel 674 | + + + + + +--------+ + + | | 2022-01-31 | [facility] | 11.0 | (missing) | (missing) | | (unavailable | 07:21 [facility] | | | + + + +--------+ + + + + | Result panel 675 | + + + + + +------+ + + | | 2022-01-31 | [facility] | // | (missing) | (missing) | | (unavailable | 07:21 [facility] | | | + + + +------+ + + + + | Result panel 676 | + + + + + +--------+ + + | | 2022-01-31 | [facility] | 11.0 | (missing) | (missing) | | (unavailable | 07:21 [facility] | | | + + + +--------+ + + + + | Result panel 677 | + + + + + +------+ + + | | 2022-01-31 | [facility] | // | (missing) | (missing) | | (unavailable | 07:21 [facility] | | | + + + +------+ + + + + | Result panel 678 | + + + + + +--------+ + + | | 2022-01-31 | [facility] | 11.0 | (missing) | (missing) | | (unavailable | 07:21 [facility] | | | + + + +--------+ + + + + | Result panel 679 | + + + + + +------+ + + | | 2022-01-31 | [facility] | // | (missing) | (missing) | | (unavailable | 07:21 [facility] | | | + + + +------+ + + + + | Result panel 680 | + + + + + +--------+ + + | | 2022-01-31 | [facility] | 11.0 | (missing) | (missing) | | (unavailable | 07:21 [facility] | | | + + + +--------+ + + + + | Result panel 681 | + + + + + +------+ + + | | 2022-01-31 | [facility] | // | (missing) | (missing) | | (unavailable | 07:21 [facility] | | | + + + +------+ + + + + | Result panel 682 | + + + + + +--------+ + + | | 2022-01-31 | [facility] | 11.0 | (missing) | (missing) | | (unavailable | 07:21 [facility] | | | + + + +--------+ + + + + | Result panel 683 | + + + + + +------+ + + | | 2022-01-31 | [facility] | // | (missing) | (missing) | | (unavailable | 07:21 [facility] | | | + + + +------+ + + + + | Result panel 684 | + + + + + +--------+ + + | | 2022-01-31 | [facility] | 11.0 | (missing) | (missing) | | (unavailable | 07:21 [facility] | | | + + + +--------+ + + + + | Result panel 685 | + + + + + +------+ + + | | 2022-01-31 | [facility] | // | (missing) | (missing) | | (unavailable | 07:21 [facility] | | | + + + +------+ + + + + | Result panel 686 | + + + + + +-------+ + + | | 2022-02-15 | [facility] | 8.1 | (missing) | (missing) | | (unavailable | 02:00 | [facility] | | | + + + +-------+ + + + + | Result panel 687 | + + + + + +--------+ + + | | 2022-02-15 | [facility] | 3.63 | (missing) | (missing) | | (unavailable | 02:00 | [facility] | | | + + + +--------+ + + + + | Result panel 688 | + + + + + +--------+ + + | | 2022-02-15 | [facility] | 11.0 | (missing) | (missing) | | (unavailable | 02:00 [facility] | | | + + + +--------+ + + + + | Result panel 689 | + + + + + +--------+ + + | | 2022-02-15 | [facility] | 33.6 | (missing) | (missing) | | (unavailable | 02:00 | [facility] | | | | + + + +--------+ + + + + | Result panel 690 | + + + + + +--------+ + + | | 2022-02-15 | [facility] | 92.5 | (missing) | (missing) | | (unavailable | 02:00 | [facility] | | | | + + + +--------+ + + + + | Result panel 691 | + + + + + +--------+ + + | | 2022-02-15 | [facility] | 30.3 | (missing) | (missing) | | (unavailable | 02:00 | [facility] | | | | + + + +--------+ + + + + | Result panel 692 | + + + + + +--------+ + + | | 2022-02-15 | [facility] | 32.8 | (missing) | (missing) | | (unavailable | 02:00 | [facility] | | | | + + + +--------+ + + + + | Result panel 693 | + + + + + +--------+ + + | | 2022-02-15 | [facility] | 15.3 | (missing) | (missing) | | (unavailable | 02:00 | [facility] | | | | + + + +--------+ + + + + | Result panel 694 | + + + + + +-------+ + + | | 2022-02-15 | [facility] | 271 | (missing) | (missing) | | (unavailable | 02:00 | [facility] | | | | + + + +-------+ + + + + | Result panel 695 | + + + + + +--------+ + + | | 2022-02-15 | [facility] | 79.2 | (missing) | (missing) | | (unavailable | 02:00 | [facility] | | | | + + + +--------+ + + + + | Result panel 696 | + + + + + +--------+ + + | | 2022-02-15 | [facility] | 11.0 | (missing) | (missing) | | (unavailable | 02:00 | [facility] | | | | + + + +--------+ + + + + | Result panel 697 | + + + + + +-------+ + + | | 2022-02-15 | [facility] | 5.4 | (missing) | (missing) | | (unavailable | 02:00 | [facility] | | | | + + + +-------+ + + + + | Result panel 698 | + + + + + +-------+ + + | | 2022-02-15 | [facility] | 2.9 | (missing) | (missing) | | (unavailable | 02:00 | [facility] | | | | + + + +-------+ + + + + | Result panel 699 | + + + + + +-------+ + + | | 2022-02-15 | [facility] | 1.5 | (missing) | (missing) | | (unavailable | 02:00 | [facility] | | | | + + + +-------+ + + + + | Result panel 700 | + + + + + +-------+---------+ + | | 2022-02-15 | [facility] | 104 | mg/dL | (missing) | | (unavailable | 02:00 | [facility] | | | | + + + +-------+---------+ + + + | Result panel 701 | + + + + + +------+---------+ + | | 2022-02-15 | [facility] | 21 | mg/dL | (missing) | | (unavailable | 02:00 | [facility] | | | | + + + +------+---------+ + + + | Result panel 702 | + + + + + +--------+---------+ + | | 2022-02-15 | [facility] | 0.89 | mg/dL | (missing) | | (unavailable | 02:00 | [facility] | | | | + + + +--------+---------+ + + + | Result panel 703 | + + + + + +-------+ + + | | 2022-02-15 | [facility] | 103 | (missing) | (missing) | | (unavailable | 02:00 | [facility] | | | | + + + +-------+ + + + + | Result panel 704 | + + + + + +---------+ + + | | 2022-02-15 | [facility] | 23.59 | (missing) | (missing) | | (unavailable | 02:00 | [facility] | | | | + + + +---------+ + + + + | Result panel 705 | + + + + + +-------+ + + | | 2022-02-15 | [facility] | 139 | (missing) | (missing) | | (unavailable | 02:00 | [facility] | | | | + + + +-------+ + + + + | Result panel 706 | + + + + + +-------+ + + | | 2022-02-15 | [facility] | 4.5 | (missing) | (missing) | | (unavailable | 02:00 | [facility] | | | + + + +-------+ + + + + | Result panel 707 | + + + + + +-------+ + + | | 2022-02-15 | [facility] | 103 | (missing) | (missing) | | (unavailable | 02:00 | [facility] | | | + + + +-------+ + + + + | Result panel 708 | + + + + + +------+ + + | | 2022-02-15 | [facility] | 28 | (missing) | (missing) | | (unavailable | 02:00 | [facility] | | | + + + +------+ + + + + | Result panel 709 | + + + + + +--------+ + + | | 2022-02-15 | [facility] | 12.5 | (missing) | (missing) | | (unavailable | 02:00 | [facility] | | | + + + +--------+ + + + + | Result panel 710 | + + + + + +-------+---------+ + | | 2022-02-15 | [facility] | 8.3 | mg/dL | (missing) | | (unavailable | 02:00 | [facility] | | | + + + +-------+---------+ + + + | Result panel 711 | + + + + + +-------+ + + | | 2022-03-07 | [facility] | 9.2 | (missing) | (missing) | | (unavailable | 01:32 | [facility] | | | + + + +-------+ + + + + | Result panel 712 | + + + + + +--------+ + + | | 2022-03-07 | [facility] | 3.49 | (missing) | (missing) | | (unavailable | 01:32 | [facility] | | | + + + +--------+ + + + + | Result panel 713 | + + + + + +--------+ + + | | 2022-03-07 | [facility] | 10.8 | (missing) | (missing) | | (unavailable | 01:32 | [facility] | | | + + + +--------+ + + + + | Result panel 714 | + + + + + +--------+ + + | | 2022-03-07 | [facility] | 32.6 | (missing) | (missing) | | (unavailable | 01:32 | [facility] | | | + + + +--------+ + + + + | Result panel 715 | + + + + + +--------+ + + | | 2022-03-07 | [facility] | 93.4 | (missing) | (missing) | | (unavailable | 01:32 | [facility] | | | + + + +--------+ + + + + | Result panel 716 | + + + + + +--------+ + + | | 2022-03-07 | [facility] | 31.0 | (missing) | (missing) | | (unavailable | 01:32 | [facility] | | | + + + +--------+ + + + + | Result panel 717 | + + + + + +--------+ + + | | 2022-03-07 | [facility] | 33.2 | (missing) | (missing) | | (unavailable | 01:32 | [facility] | | | + + + +--------+ + + + + | Result panel 718 | + + + + + +--------+ + + | | 2022-03-07 | [facility] | 15.6 | (missing) | (missing) | | (unavailable | 01:32 | [facility] | | | + + + +--------+ + + + + | Result panel 719 | + + + + + +-------+ + + | | 2022-03-07 | [facility] | 251 | (missing) | (missing) | | (unavailable | 01:32 | [facility] | | | + + + +-------+ + + + + | Result panel 720 | + + + + + +--------+ + + | | 2022-03-07 | [facility] | 79.1 | (missing) | (missing) | | (unavailable | 01:32 | [facility] | | | + + + +--------+ + + + + | Result panel 721 | + + + + + +--------+ + + | | 2022-03-07 | [facility] | 11.7 | (missing) | (missing) | | (unavailable | 01:32 | [facility] | | | + + + +--------+ + + + + | Result panel 722 | + + + + + +-------+ + + | | 2022-03-07 | [facility] | 6.7 | (missing) | (missing) | | (unavailable | 01:32 | [facility] | | | + + + +-------+ + + + + | Result panel 723 | + + + + + +-------+ + + | | 2022-03-07 | [facility] | 2.0 | (missing) | (missing) | | (unavailable | 01:32 | [facility] | | | + + + +-------+ + + + + | Result panel 724 | + + + + + +-------+ + + | | 2022-03-07 | [facility] | 0.5 | (missing) | (missing) | | (unavailable | 01:32 | [facility] | | | + + + +-------+ + + + + | Result panel 725 | + + + + + +-------+---------+ + | | 2022-03-07 | [facility] | 133 | mg/dL | (missing) | | (unavailable | 01:32 | [facility] | | | + + + +-------+---------+ + + + | Result panel 726 | + + + + + +------+---------+ + | | 2022-03-07 | [facility] | 25 | mg/dL | (missing) | | (unavailable | 01:32 | [facility] | | | + + + +------+---------+ + + + | Result panel 727 | + + + + + +--------+---------+ + | | 2022-03-07 | [facility] | 1.11 | mg/dL | (missing) | | (unavailable | 01:32 | [facility] | | | + + + +--------+---------+ + + + | Result panel 728 | + + + + + +------+ + + | | 2022-03-07 | [facility] | 80 | (missing) | (missing) | | (unavailable | 01:32 | [facility] | | | + + + +------+ + + + + | Result panel 729 | + + + + + +---------+ + + | | 2022-03-07 | [facility] | 22.52 | (missing) | (missing) | | (unavailable | 01:32 | [facility] | | | + + + +---------+ + + + + | Result panel 730 | + + + + + +-------+ + + | | 2022-03-07 | [facility] | 137 | (missing) | (missing) | | (unavailable | 01:32 | [facility] | | | + + + +-------+ + + + + | Result panel 731 | + + + + + +-------+ + + | | 2022-03-07 | [facility] | 4.5 | (missing) | (missing) | | (unavailable | 01:32 | [facility] | | | + + + +-------+ + + + + | Result panel 732 | + + + + + +-------+ + + | | 2022-03-07 | [facility] | 102 | (missing) | (missing) | | (unavailable | 01:32 | [facility] | | | + + + +-------+ + + + + | Result panel 733 | + + + + + +------+ + + | | 2022-03-07 | [facility] | 30 | (missing) | (missing) | | (unavailable | 01:32 | [facility] | | | + + + +------+ + + + + | Result panel 734 | + + + + + +-------+ + + | | 2022-03-07 | [facility] | 9.5 | (missing) | (missing) | | (unavailable | 01:32 | [facility] | | | + + + +-------+ + + + + | Result panel 735 | + + + + + +-------+---------+ + | | 2022-03-07 | [facility] | 8.2 | mg/dL | (missing) | | (unavailable | 01:32 | [facility] | | | + + + +-------+---------+ + + + | Result panel 736 | + + + + + +-------+ + + | | 2022-03-07 | [facility] | 6.4 | (missing) | (missing) | | (unavailable | 01:32 | [facility] | | | + + + +-------+ + + + + | Result panel 737 | + + + + + +-------+ + + | | 2022-03-07 | [facility] | 3.1 | (missing) | (missing) | | (unavailable | 01:32 | [facility] | | | + + + +-------+ + + + + | Result panel 738 | + + + + + +-------+ + + | | 2022-03-07 | [facility] | 3.3 | (missing) | (missing) | | (unavailable | 01:32 | [facility] | | | + + + +-------+ + + + + | Result panel 739 | + + + + + +--------+ + + | | 2022-03-07 | [facility] | 0.94 | (missing) | (missing) | | (unavailable | 01:32 | [facility] | | | + + + +--------+ + + + + | Result panel 740 | + + + + + +-------+ + + | | 2022-03-07 | [facility] | 0.3 | (missing) | (missing) | | (unavailable | 01:32 | [facility] | | | + + + +-------+ + + + + | Result panel 741 | + + + + + +------+ + + | | 2022-03-07 | [facility] | 40 | (missing) | (missing) | | (unavailable | 01:32 | [facility] | | | + + + +------+ + + + + | Result panel 742 | + + + + + +------+ + + | | 2022-03-07 | [facility] | 39 | (missing) | (missing) | | (unavailable | 01:32 | [facility] | | | + + + +------+ + + + + | Result panel 743 | + + + + + +-------+ + + | | 2022-03-07 | [facility] | 132 | (missing) | (missing) | | (unavailable | 01:32 | [facility] | | | + + + +-------+ + + + + | Result panel 744 | + + + + + +-------+ + + | | 2022-03-07 | [facility] | 9.2 | (missing) | (missing) | | (unavailable | 01:32 | [facility] | | | + + + +-------+ + + + + | Result panel 745 | + + + + + +--------+ + + | | 2022-03-07 | [facility] | 3.49 | (missing) | (missing) | | (unavailable | 01:32 | [facility] | | | + + + +--------+ + + + + | Result panel 746 | + + + + + +--------+ + + | | 2022-03-07 | [facility] | 10.8 | (missing) | (missing) | | (unavailable | 01:32 | [facility] | | | + + + +--------+ + + + + | Result panel 747 | + + + + + +--------+ + + | | 2022-03-07 | [facility] | 32.6 | (missing) | (missing) | | (unavailable | 01:32 | [facility] | | | + + + +--------+ + + + + | Result panel 748 | + + + + + +--------+ + + | | 2022-03-07 | [facility] | 93.4 | (missing) | (missing) | | (unavailable | 01:32 | [facility] | | | + + + +--------+ + + + + | Result panel 749 | + + + + + +--------+ + + | | 2022-03-07 | [facility] | 31.0 | (missing) | (missing) | | (unavailable | 01:32 | [facility] | | | + + + +--------+ + + + + | Result panel 750 | + + + + + +--------+ + + | | 2022-03-07 | [facility] | 33.2 | (missing) | (missing) | | (unavailable | 01:32 | [facility] | | | + + + +--------+ + + + + | Result panel 751 | + + + + + +--------+ + + | | 2022-03-07 | [facility] | 15.6 | (missing) | (missing) | | (unavailable | 01:32 | [facility] | | | + + + +--------+ + + + + | Result panel 752 | + + + + + +-------+ + + | | 2022-03-07 | [facility] | 251 | (missing) | (missing) | | (unavailable | 01:32 | [facility] | | | + + + +-------+ + + + + | Result panel 753 | + + + + + +--------+ + + | | 2022-03-07 | [facility] | 79.1 | (missing) | (missing) | | (unavailable | 01:32 | [facility] | | | + + + +--------+ + + + + | Result panel 754 | + + + + + +--------+ + + | | 2022-03-07 | [facility] | 11.7 | (missing) | (missing) | | (unavailable | 01:32 | [facility] | | | + + + +--------+ + + + + | Result panel 755 | + + + + + +-------+ + + | | 2022-03-07 | [facility] | 6.7 | (missing) | (missing) | | (unavailable | 01:32 | [facility] | | | + + + +-------+ + + + + | Result panel 756 | + + + + + +-------+ + + | | 2022-03-07 | [facility] | 2.0 | (missing) | (missing) | | (unavailable | 01:32 | [facility] | | | + + + +-------+ + + + + | Result panel 757 | + + + + + +-------+ + + | | 2022-03-07 | [facility] | 0.5 | (missing) | (missing) | | (unavailable | 01:32 | [facility] | | | + + + +-------+ + + + + | Result panel 758 | + + + + + +-------+---------+ + | | 2022-03-07 | [facility] | 133 | mg/dL | (missing) | | (unavailable | 01:32 | [facility] | | | + + + +-------+---------+ + + + | Result panel 759 | + + + + + +------+---------+ + | | 2022-03-07 | [facility] | 25 | mg/dL | (missing) | | (unavailable | 01:32 | [facility] | | | + + + +------+---------+ + + + | Result panel 760 | + + + + + +--------+---------+ + | | 2022-03-07 | [facility] | 1.11 | mg/dL | (missing) | | (unavailable | 01:32 | [facility] | | | + + + +--------+---------+ + + + | Result panel 761 | + + + + + +------+ + + | | 2022-03-07 | [facility] | 80 | (missing) | (missing) | | (unavailable | 01:32 | [facility] | | | + + + +------+ + + + + | Result panel 762 | + + + + + +---------+ + + | | 2022-03-07 | [facility] | 22.52 | (missing) | (missing) | | (unavailable | 01:32 | [facility] | | | + + + +---------+ + + + + | Result panel 763 | + + + + + +-------+ + + | | 2022-03-07 | [facility] | 137 | (missing) | (missing) | | (unavailable | 01:32 | [facility] | | | + + + +-------+ + + + + | Result panel 764 | + + + + + +-------+ + + | | 2022-03-07 | [facility] | 4.5 | (missing) | (missing) | | (unavailable | 01:32 | [facility] | | | + + + +-------+ + + + + | Result panel 765 | + + + + + +-------+ + + | | 2022-03-07 | [facility] | 102 | (missing) | (missing) | | (unavailable | 01:32 | [facility] | | | + + + +-------+ + + + + | Result panel 766 | + + + + + +------+ + + | | 2022-03-07 | [facility] | 30 | (missing) | (missing) | | (unavailable | 01:32 | [facility] | | | + + + +------+ + + + + | Result panel 767 | + + + + + +-------+ + + | | 2022-03-07 | [facility] | 9.5 | (missing) | (missing) | | (unavailable | 01:32 | [facility] | | | + + + +-------+ + + + + | Result panel 768 | + + + + + +-------+---------+ + | | 2022-03-07 | [facility] | 8.2 | mg/dL | (missing) | | (unavailable | 01:32 | [facility] | | | + + + +-------+---------+ + + + | Result panel 769 | + + + + + +-------+ + + | | 2022-03-07 | [facility] | 6.4 | (missing) | (missing) | | (unavailable | 01:32 | [facility] | | | + + + +-------+ + + + + | Result panel 770 | + + + + + +-------+ + + | | 2022-03-07 | [facility] | 3.1 | (missing) | (missing) | | (unavailable | 01:32 | [facility] | | | + + + +-------+ + + + + | Result panel 771 | + + + + + +-------+ + + | | 2022-03-07 | [facility] | 3.3 | (missing) | (missing) | | (unavailable | 01:32 | [facility] | | | + + + +-------+ + + + + | Result panel 772 | + + + + + +--------+ + + | | 2022-03-07 | [facility] | 0.94 | (missing) | (missing) | | (unavailable | 01:32 | [facility] | | | + + + +--------+ + + + + | Result panel 773 | + + + + + +-------+ + + | | 2022-03-07 | [facility] | 0.3 | (missing) | (missing) | | (unavailable | 01:32 | [facility] | | | + + + +-------+ + + + + | Result panel 774 | + + + + + +------+ + + | | 2022-03-07 | [facility] | 40 | (missing) | (missing) | | (unavailable | 01:32 | [facility] | | | + + + +------+ + + + + | Result panel 775 | + + + + + +------+ + + | | 2022-03-07 | [facility] | 39 | (missing) | (missing) | | (unavailable | 01:32 | [facility] | | | + + + +------+ + + + + | Result panel 776 | + + + + + +-------+ + + | | 2022-03-07 | [facility] | 132 | (missing) | (missing) | | (unavailable | 01:32 | [facility] | | | + + + +-------+ + + + + | Result panel 777 | + + + + + +-------+ + + | | 2022-03-07 | [facility] | 9.2 | (missing) | (missing) | | (unavailable | 01:32 [facility] | | | + + + +-------+ + + + + | Result panel 778 | + + + + + +--------+ + + | | 2022-03-07 | [facility] | 3.49 | (missing) | (missing) | | (unavailable | 01:32 [facility] | | | + + + +--------+ + + + + | Result panel 779 | + + + + + +--------+ + + | | 2022-03-07 | [facility] | 10.8 | (missing) | (missing) | | (unavailable | 01:32 | [facility] | | | + + + +--------+ + + + + | Result panel 780 | + + + + + +--------+ + + | | 2022-03-07 | [facility] | 32.6 | (missing) | (missing) | | (unavailable | 01:32 | [facility] | | | + + + +--------+ + + + + | Result panel 781 | + + + + + +--------+ + + | | 2022-03-07 | [facility] | 93.4 | (missing) | (missing) | | (unavailable | 01:32 | [facility] | | | + + + +--------+ + + + + | Result panel 782 | + + + + + +--------+ + + | | 2022-03-07 | [facility] | 31.0 | (missing) | (missing) | | (unavailable | 01:32 [facility] | | | + + + +--------+ + + + + | Result panel 783 | + + + + + +--------+ + + | | 2022-03-07 | [facility] | 33.2 | (missing) | (missing) | | (unavailable | 01:32 [facility] | | | + + + +--------+ + + + + | Result panel 784 | + + + + + +--------+ + + | | 2022-03-07 | [facility] | 15.6 | (missing) | (missing) | | (unavailable | 01:32 [facility] | | | + + + +--------+ + + + + | Result panel 785 | + + + + + +-------+ + + | | 2022-03-07 | [facility] | 251 | (missing) | (missing) | | (unavailable | 01:32 [facility] | | | + + + +-------+ + + + + | Result panel 786 | + + + + + +--------+ + + | | 2022-03-07 | [facility] | 79.1 | (missing) | (missing) | | (unavailable | 01:32 [facility] | | | + + + +--------+ + + + + | Result panel 787 | + + + + + +--------+ + + | | 2022-03-07 | [facility] | 11.7 | (missing) | (missing) | | (unavailable | 01:32 [facility] | | | + + + +--------+ + + + + | Result panel 788 | + + + + + +-------+ + + | | 2022-03-07 | [facility] | 6.7 | (missing) | (missing) | | (unavailable | 01:32 [facility] | | | + + + +-------+ + + + + | Result panel 789 | + + + + + +-------+ + + | | 2022-03-07 | [facility] | 2.0 | (missing) | (missing) | | (unavailable | 01:32 | [facility] | | | + + + +-------+ + + + + | Result panel 790 | + + + + + +-------+ + + | | 2022-03-07 | [facility] | 0.5 | (missing) | (missing) | | (unavailable | 01:32 | [facility] | | | + + + +-------+ + + + + | Result panel 791 | + + + + + +-------+---------+ + | | 2022-03-07 | [facility] | 133 | mg/dL | (missing) | | (unavailable | 01:32 | [facility] | | | + + + +-------+---------+ + + + | Result panel 792 | + + + + + +------+---------+ + | | 2022-03-07 | [facility] | 25 | mg/dL | (missing) | | (unavailable | 01:32 | [facility] | | | + + + +------+---------+ + + + | Result panel 793 | + + + + + +--------+---------+ + | | 2022-03-07 | [facility] | 1.11 | mg/dL | (missing) | | (unavailable | 01:32 | [facility] | | | + + + +--------+---------+ + + + | Result panel 794 | + + + + + +------+ + + | | 2022-03-07 | [facility] | 80 | (missing) | (missing) | | (unavailable | 01:32 [facility] | | | + + + +------+ + + + + | Result panel 795 | + + + + + +---------+ + + | | 2022-03-07 | [facility] | 22.52 | (missing) | (missing) | | (unavailable | 01:32 | [facility] | | | + + + +---------+ + + + + | Result panel 796 | + + + + + +-------+ + + | | 2022-03-07 | [facility] | 137 | (missing) | (missing) | | (unavailable | 01:32 | [facility] | | | + + + +-------+ + + + + | Result panel 797 | + + + + + +-------+ + + | | 2022-03-07 | [facility] | 4.5 | (missing) | (missing) | | (unavailable | 01:32 | [facility] | | | + + + +-------+ + + + + | Result panel 798 | + + + + + +-------+ + + | | 2022-03-07 | [facility] | 102 | (missing) | (missing) | | (unavailable | 01:32 | [facility] | | | + + + +-------+ + + + + | Result panel 799 | + + + + + +------+ + + | | 2022-03-07 | [facility] | 30 | (missing) | (missing) | | (unavailable | 01:32 | [facility] | | | | + + + +------+ + + + + | Result panel 800 | + + + + + +-------+ + + | | 2022-03-07 | [facility] | 9.5 | (missing) | (missing) | | (unavailable | 01:32 | [facility] | | | + + + +-------+ + + + + | Result panel 801 | + + + + + +-------+---------+ + | | 2022-03-07 | [facility] | 8.2 | mg/dL | (missing) | | (unavailable | 01:32 | [facility] | | | + + + +-------+---------+ + + + | Result panel 802 | + + + + + +-------+ + + | | 2022-03-07 | [facility] | 6.4 | (missing) | (missing) | | (unavailable | 01:32 | [facility] | | | + + + +-------+ + + + + | Result panel 803 | + + + + + +-------+ + + | | 2022-03-07 | [facility] | 3.1 | (missing) | (missing) | | (unavailable | 01:32 | [facility] | | | + + + +-------+ + + + + | Result panel 804 | + + + + + +-------+ + + | | 2022-03-07 | [facility] | 3.3 | (missing) | (missing) | | (unavailable | 01:32 | [facility] | | | + + + +-------+ + + + + | Result panel 805 | + + + + + +--------+ + + | | 2022-03-07 | [facility] | 0.94 | (missing) | (missing) | | (unavailable | 01:32 [facility] | | | + + + +--------+ + + + + | Result panel 806 | + + + + + +-------+ + + | | 2022-03-07 | [facility] | 0.3 | (missing) | (missing) | | (unavailable | 01:32 | [facility] | | | + + + +-------+ + + + + | Result panel 807 | + + + + + +------+ + + | | 2022-03-07 | [facility] | 40 | (missing) | (missing) | | (unavailable | 01:32 [facility] | | | + + + +------+ + + + + | Result panel 808 | + + + + + +------+ + + | | 2022-03-07 | [facility] | 39 | (missing) | (missing) | | (unavailable | 01:32 | [facility] | | | + + + +------+ + + + + | Result panel 809 | + + + + + +-------+ + + | | 2022-03-07 | [facility] | 132 | (missing) | (missing) | | (unavailable | 01:32 | [facility] | | | + + + +-------+ + + + + | Result panel 810 | + + + + + + + + + | | 2022-03-07 | [facility] | NEGATIVE | (missing) | (missing) | | (unavailable | 01:45 | [facility] | | | | + + + + + + + + + | Result panel 811 | + + + + + + + + + | | 2022-03-07 | [facility] | NEGATIVE | (missing) | (missing) | | (unavailable | 01:45 | [facility] | | | | + + + + + + + + + | Result panel 812 | + + + + + + + + + | | 2022-03-07 | [facility] | NEGATIVE | (missing) | (missing) | | (unavailable | 01:45 | [facility] | | | + + + + + + + + + | Result panel 813 | + + + + + + + + + | | 2022-03-07 | [facility] | NEGATIVE | (missing) | (missing) | | (unavailable | 01:45 | [facility] | | | | + + + + + + + + + | Result panel 814 | + + + + + + + + + | | 2022-03-07 | [facility] | NEGATIVE | (missing) | (missing) | | (unavailable | 01:45 | [facility] | | | | + + + + + + + + + | Result panel 815 | + + + + + + + + + | | 2022-03-07 | [facility] | NEGATIVE | (missing) | (missing) | | (unavailable | 01:45 | [facility] | | | | + + + + + + + + + | Result panel 816 | + + + + + + + + + | | 2022-03-07 | [facility] | NEGATIVE | (missing) | (missing) | | (unavailable | 01:45 | [facility] | | | | + + + + + + + + + | Result panel 817 | + + + + + + + + + | | 2022-03-07 | [facility] | NEGATIVE | (missing) | (missing) | | (unavailable | 01:45 | [facility] | | | | + + + + + + + + + | Result panel 818 | + + + + + + + + + | | 2022-03-07 | [facility] | NEGATIVE | (missing) | (missing) | | (unavailable | 01:45 | [facility] | | | | + + + + + + + + + | Result panel 819 | + + + + + + + + + | | 2022-03-07 | [facility] | POSITIVE | (missing) | (missing) | | (unavailable | 01:45 | [facility] | | | | + + + + + + + + + | Result panel 820 | + + + + + + + + + | | 2022-03-07 | [facility] | NEGATIVE | (missing) | (missing) | | (unavailable | 01:45 | [facility] | | | | + + + + + + + + + | Result panel 821 | + + + + + + + + + | | 2022-03-07 | [facility] | NEGATIVE | (missing) | (missing) | | (unavailable | 01:45 | [facility] | | | | + + + + + + + + + | Result panel 822 | + + + + + + + + + | | 2022-03-07 | [facility] | NEGATIVE | (missing) | (missing) | | (unavailable | 01:45 | [facility] | | | | + + + + + + + + + | Result panel 823 | + + + + + + + + + | | 2022-03-07 | [facility] | NEGATIVE | (missing) | (missing) | | (unavailable | 01:45 | [facility] | | | | + + + + + + + + + | Result panel 824 | + + + + + + + + + | | 2022-03-07 | [facility] | NEGATIVE | (missing) | (missing) | | (unavailable | 01:45 | [facility] | | | | + + + + + + + + + | Result panel 825 | + + + + + + + + + | | 2022-03-07 | [facility] | NEGATIVE | (missing) | (missing) | | (unavailable | 01:45 | [facility] | | | | + + + + + + + + + | Result panel 826 | + + + + + + + + + | | 2022-03-07 | [facility] | NEGATIVE | (missing) | (missing) | | (unavailable | 01:45 | [facility] | | | | + + + + + + + + + | Result panel 827 | + + + + + + + + + | | 2022-03-07 | [facility] | NEGATIVE | (missing) | (missing) | | (unavailable | 01:45 | [facility] | | | | + + + + + + + + + | Result panel 828 | + + + + + + + + + | | 2022-03-07 | [facility] | NEGATIVE | (missing) | (missing) | | (unavailable | 01:45 | [facility] | | | | + + + + + + + + + | Result panel 829 | + + + + + + + + + | | 2022-03-07 | [facility] | NEGATIVE | (missing) | (missing) | | (unavailable | 01:45 | [facility] | | | | + + + + + + + + + | Result panel 830 | + + + + + + + + + | | 2022-03-07 | [facility] | NEGATIVE | (missing) | (missing) | | (unavailable | 01:45 | [facility] | | | | + + + + + + + + + | Result panel 831 | + + + + + + + + + | | 2022-03-07 | [facility] | NEGATIVE | (missing) | (missing) | | (unavailable | 01:45 | [facility] | | | | + + + + + + + + + | Result panel 832 | + + + + + + + + + | | 2022-03-07 | [facility] | POSITIVE | (missing) | (missing) | | (unavailable | 01:45 | [facility] | | | | + + + + + + + + + | Result panel 833 | + + + + + + + + + | | 2022-03-07 | [facility] | NEGATIVE | (missing) | (missing) | | (unavailable | 01:45 | [facility] | | | + + + + + + + + + | Result panel 834 | + + + + + + + + + | | 2022-03-07 | [facility] | NEGATIVE | (missing) | (missing) | | (unavailable | 01:45 | [facility] | | | + + + + + + + + + | Result panel 835 | + + + + + + + + + | | 2022-03-07 | [facility] | NEGATIVE | (missing) | (missing) | | (unavailable | 01:45 | [facility] | | | + + + + + + + + + | Result panel 836 | + + + + + + + + + | | 2022-03-07 | [facility] | NEGATIVE | (missing) | (missing) | | (unavailable | 01:45 | [facility] | | | + + + + + + + + + | Result panel 837 | + + + + + + + + + | | 2022-03-07 | [facility] | NEGATIVE | (missing) | (missing) | | (unavailable | 01:45 | [facility] | | | + + + + + + + + + | Result panel 838 | + + + + + + + + + | | 2022-03-07 | [facility] | NEGATIVE | (missing) | (missing) | | (unavailable | 01:45 | [facility] | | | + + + + + + + + + | Result panel 839 | + + + + + + + + + | | 2022-03-07 | [facility] | NEGATIVE | (missing) | (missing) | | (unavailable | 01:45 | [facility] | | | + + + + + + + + + | Result panel 840 | + + + + + + + + + | | 2022-03-07 | [facility] | NEGATIVE | (missing) | (missing) | | (unavailable | 01:45 | [facility] | | | + + + + + + + + + | Result panel 841 | + + + + + + + + + | | 2022-03-07 | [facility] | NEGATIVE | (missing) | (missing) | | (unavailable | 01:45 | [facility] | | | + + + + + + + + + | Result panel 842 | + + + + + + + + + | | 2022-03-07 | [facility] | NEGATIVE | (missing) | (missing) | | (unavailable | 01:45 | [facility] | | | + + + + + + + + + | Result panel 843 | + + + + + + + + + | | 2022-03-07 | [facility] | NEGATIVE | (missing) | (missing) | | (unavailable | 01:45 | [facility] | | | + + + + + + + + + | Result panel 844 | + + + + + + + + + | | 2022-03-07 | [facility] | NEGATIVE | (missing) | (missing) | | (unavailable | 01:45 | [facility] | | | + + + + + + + + + | Result panel 845 | + + + + + + + + + | | 2022-03-07 | [facility] | POSITIVE | (missing) | (missing) | | (unavailable | 01:45 | [facility] | | | + + + + + + + + + | Result panel 846 | + + + + + + + + + | | 2022-03-07 | [facility] | NEGATIVE | (missing) | (missing) | | (unavailable | 01:45 | [facility] | | | + + + + + + + + + | Result panel 847 | + + + + + + + + + | | 2022-03-07 | [facility] | NEGATIVE | (missing) | (missing) | | (unavailable | 01:45 | [facility] | | | + + + + + + + + + | Result panel 848 | + + + + + + + + + | | 2022-03-07 | [facility] | NEGATIVE | (missing) | (missing) | | (unavailable | 01:45 | [facility] | | | + + + + + + + + + | Result panel 849 | + + + + + + + + + | | 2022-12-16 | [facility] | YELLOW | (missing) | (missing) | | (unavailable | 21:51:07 | [facility] | | | + + + + + + + + + | Result panel 850 | + + + + + +---------+ + + | | 2022-12-16 | [facility] | CLEAR | (missing) | (missing) | | (unavailable | 21:51:07 | [facility] | | | + + + +---------+ + + + + | Result panel 851 | + + + + + + + + + | | 2022-12-16 | [facility] | NEGATIVE | (missing) | (missing) | | (unavailable | 21:51:07 | [facility] | | | + + + + + + + + + | Result panel 852 | + + + + + + + + + | | 2022-12-16 | [facility] | NEGATIVE | (missing) | (missing) | | (unavailable | 21:51:07 | [facility] | | | + + + + + + + + + | Result panel 853 | + + + + + + + + + | | 2022-12-16 | [facility] | NEGATIVE | (missing) | (missing) | | (unavailable | 21:51:07 | [facility] | | | + + + + + + + + + | Result panel 854 | + + + + + +---------+ + + | | 2022-12-16 | [facility] | 1.010 | (missing) | (missing) | | (unavailable | 21:51:07 | [facility] | | | + + + +---------+ + + + + | Result panel 855 | + + + + + + + + + | | 2022-12-16 | [facility] | NEGATIVE | (missing) | (missing) | | (unavailable | 21:51:07 | [facility] | | | + + + + + + + + + | Result panel 856 | + + + + + +-------+ + + | | 2022-12-16 | [facility] | 5.5 | (missing) | (missing) | | (unavailable | 21:51:07 | [facility] | | | + + + +-------+ + + + + | Result panel 857 | + + + + + + + + + | | 2022-12-16 | [facility] | NEGATIVE | (missing) | (missing) | | (unavailable | 21:51:07 | [facility] | | | + + + + + + + + + | Result panel 858 | + + + + + + + + + | | 2022-12-16 | [facility] | NORMAL | (missing) | (missing) | | (unavailable | 21:51:07 | [facility] | | | + + + + + + + + + | Result panel 859 | + + + + + + + + + | | 2022-12-16 | [facility] | NEGATIVE | (missing) | (missing) | | (unavailable | 21:51:07 | [facility] | | | + + + + + + + + + | Result panel 860 | + + + + + + + + + | | 2022-12-16 | [facility] | NEGATIVE | (missing) | (missing) | | (unavailable | 21:51:07 | [facility] | | | + + + + + + + + + | Result panel 861 | + + + + + + + + + | | 2022-12-16 | [facility] | YELLOW | (missing) | (missing) | | (unavailable | 21:51:07 | [facility] | | | + + + + + + + + + | Result panel 862 | + + + + + +---------+ + + | | 2022-12-16 | [facility] | CLEAR | (missing) | (missing) | | (unavailable | 21:51:07 | [facility] | | | + + + +---------+ + + + + | Result panel 863 | + + + + + + + + + | | 2022-12-16 | [facility] | NEGATIVE | (missing) | (missing) | | (unavailable | 21:51:07 | [facility] | | | + + + + + + + + + | Result panel 864 | + + + + + + + + + | | 2022-12-16 | [facility] | NEGATIVE | (missing) | (missing) | | (unavailable | 21:51:07 | [facility] | | | + + + + + + + + + | Result panel 865 | + + + + + + + + + | | 2022-12-16 | [facility] | NEGATIVE | (missing) | (missing) | | (unavailable | 21:51:07 | [facility] | | | + + + + + + + + + | Result panel 866 | + + + + + +---------+ + + | | 2022-12-16 | [facility] | 1.010 | (missing) | (missing) | | (unavailable | 21:51:07 | [facility] | | | + + + +---------+ + + + + | Result panel 867 | + + + + + + + + + | | 2022-12-16 | [facility] | NEGATIVE | (missing) | (missing) | | (unavailable | 21:51:07 | [facility] | | | + + + + + + + + + | Result panel 868 | + + + + + +-------+ + + | | 2022-12-16 | [facility] | 5.5 | (missing) | (missing) | | (unavailable | 21:51:07 | [facility] | | | + + + +-------+ + + + + | Result panel 869 | + + + + + + + + + | | 2022-12-16 | [facility] | NEGATIVE | (missing) | (missing) | | (unavailable | 21:51:07 | [facility] | | | + + + + + + + + + | Result panel 870 | + + + + + + + + + | | 2022-12-16 | [facility] | NORMAL | (missing) | (missing) | | (unavailable | 21:51:07 | [facility] | | | + + + + + + + + + | Result panel 871 | + + + + + + + + + | | 2022-12-16 | [facility] | NEGATIVE | (missing) | (missing) | | (unavailable | 21:51:07 | [facility] | | | + + + + + + + + + | Result panel 872 | + + + + + + + + + | | 2022-12-16 | [facility] | NEGATIVE | (missing) | (missing) | | (unavailable | 21:51:07 | [facility] | | | + + + + + + + + + | Result panel 873 | + + + + + +-------+ + + | | 2022-12-16 | [facility] | 6.2 | (missing) | (missing) | | (unavailable | 21:51:07 | [facility] | | | + + + +-------+ + + + + | Result panel 874 | + + + + + +--------+ + + | | 2022-12-16 | [facility] | 3.62 | (missing) | (missing) | | (unavailable | 21:51:07 | [facility] | | | + + + +--------+ + + + + | Result panel 875 | + + + + + +--------+ + + | | 2022-12-16 | [facility] | 11.1 | (missing) | (missing) | | (unavailable | 21:51:07 [facility] | | | + + + +--------+ + + + + | Result panel 876 | + + + + + +--------+ + + | | 2022-12-16 | [facility] | 34.0 | (missing) | (missing) | | (unavailable | 21:51:07 [facility] | | | + + + +--------+ + + + + | Result panel 877 | + + + + + +--------+ + + | | 2022-12-16 | [facility] | 93.8 | (missing) | (missing) | | (unavailable | 21:51:07 | [facility] | | | + + + +--------+ + + + + | Result panel 878 | + + + + + +--------+ + + | | 2022-12-16 | [facility] | 30.6 | (missing) | (missing) | | (unavailable | 21:51:07 [facility] | | | + + + +--------+ + + + + | Result panel 879 | + + + + + +--------+ + + | | 2022-12-16 | [facility] | 32.6 | (missing) | (missing) | | (unavailable | 21:51:07 [facility] | | | + + + +--------+ + + + + | Result panel 880 | + + + + + +--------+ + + | | 2022-12-16 | [facility] | 13.8 | (missing) | (missing) | | (unavailable | 21:51:07 | [facility] | | | + + + +--------+ + + + + | Result panel 881 | + + + + + +-------+ + + | | 2022-12-16 | [facility] | 354 | (missing) | (missing) | | (unavailable | 21:51:07 | [facility] | | | + + + +-------+ + + + + | Result panel 882 | + + + + + +--------+ + + | | 2022-12-16 | [facility] | 63.2 | (missing) | (missing) | | (unavailable | 21:51:07 | [facility] | | | + + + +--------+ + + + + | Result panel 883 | + + + + + +--------+ + + | | 2022-12-16 | [facility] | 21.2 | (missing) | (missing) | | (unavailable | 21:51:07 [facility] | | | + + + +--------+ + + + + | Result panel 884 | + + + + + +-------+ + + | | 2022-12-16 | [facility] | 9.3 | (missing) | (missing) | | (unavailable | 21:51:07 [facility] | | | + + + +-------+ + + + + | Result panel 885 | + + + + + +-------+ + + | | 2022-12-16 | [facility] | 5.7 | (missing) | (missing) | | (unavailable | 21:51:07 [facility] | | | + + + +-------+ + + + + | Result panel 886 | + + + + + +-------+ + + | | 2022-12-16 | [facility] | 0.6 | (missing) | (missing) | | (unavailable | 21:51:07 | [facility] | | | + + + +-------+ + + + + | Result panel 887 | + + + + + + + + + | | 2022-12-16 | [facility] | YELLOW | (missing) | (missing) | | (unavailable | 21:51:07 | [facility] | | | + + + + + + + + + | Result panel 888 | + + + + + +---------+ + + | | 2022-12-16 | [facility] | CLEAR | (missing) | (missing) | | (unavailable | 21:51:07 | [facility] | | | + + + +---------+ + + + + | Result panel 889 | + + + + + + + + + | | 2022-12-16 | [facility] | NEGATIVE | (missing) | (missing) | | (unavailable | 21:51:07 | [facility] | | | + + + + + + + + + | Result panel 890 | + + + + + + + + + | | 2022-12-16 | [facility] | NEGATIVE | (missing) | (missing) | | (unavailable | 21:51:07 | [facility] | | | + + + + + + + + + | Result panel 891 | + + + + + + + + + | | 2022-12-16 | [facility] | NEGATIVE | (missing) | (missing) | | (unavailable | 21:51:07 [facility] | | | + + + + + + + + + | Result panel 892 | + + + + + +---------+ + + | | 2022-12-16 | [facility] | 1.010 | (missing) | (missing) | | (unavailable | 21:51:07 [facility] | | | + + + +---------+ + + + + | Result panel 893 | + + + + + + + + + | | 2022-12-16 | [facility] | NEGATIVE | (missing) | (missing) | | (unavailable | 21:51:07 [facility] | | | + + + + + + + + + | Result panel 894 | + + + + + +-------+ + + | | 2022-12-16 | [facility] | 5.5 | (missing) | (missing) | | (unavailable | 21:51:07 [facility] | | | + + + +-------+ + + + + | Result panel 895 | + + + + + + + + + | | 2022-12-16 | [facility] | NEGATIVE | (missing) | (missing) | | (unavailable | 21:51:07 [facility] | | | + + + + + + + + + | Result panel 896 | + + + + + + + + + | | 2022-12-16 | [facility] | NORMAL | (missing) | (missing) | | (unavailable | 21:51:07 [facility] | | | + + + + + + + + + | Result panel 897 | + + + + + + + + + | | 2022-12-16 | [facility] | NEGATIVE | (missing) | (missing) | | (unavailable | 21:51:07 [facility] | | | + + + + + + + + + | Result panel 898 | + + + + + + + + + | | 2022-12-16 | [facility] | NEGATIVE | (missing) | (missing) | | (unavailable | 21:51:07 [facility] | | | + + + + + + + + + | Result panel 899 | + + + + + +-------+---------+ + | | 2022-12-16 | [facility] | 113 | mg/dL | (missing) | | (unavailable | 21:51:07 [facility] | | | + + + +-------+---------+ + + + | Result panel 900 | + + + + + +------+---------+ + | | 2022-12-16 | [facility] | 26 | mg/dL | (missing) | | (unavailable | 21:51:07 [facility] | | | + + + +------+---------+ + + + | Result panel 901 | + + + + + +--------+---------+ + | | 2022-12-16 | [facility] | 1.40 | mg/dL | (missing) | | (unavailable | 21:51:07 [facility] | | | + + + +--------+---------+ + + + | Result panel 902 | + + + + + +------+ + + | | 2022-12-16 | [facility] | 60 | (missing) | (missing) | | (unavailable | 21:51:07 [facility] | | | + + + +------+ + + + + | Result panel 903 | + + + + + +---------+ + + | | 2022-12-16 | [facility] | 18.57 | (missing) | (missing) | | (unavailable | 21:51:07 [facility] | | | + + + +---------+ + + + + | Result panel 904 | + + + + + +-------+ + + | | 2022-12-16 | [facility] | 137 | (missing) | (missing) | | (unavailable | 21:51:07 [facility] | | | + + + +-------+ + + + + | Result panel 905 | + + + + + +-------+ + + | | 2022-12-16 | [facility] | 4.5 | (missing) | (missing) | | (unavailable | 21:51:07 [facility] | | | + + + +-------+ + + + + | Result panel 906 | + + + + + +-------+ + + | | 2022-12-16 | [facility] | 102 | (missing) | (missing) | | (unavailable | 21:51:07 [facility] | | | + + + +-------+ + + + + | Result panel 907 | + + + + + +------+ + + | | 2022-12-16 | [facility] | 27 | (missing) | (missing) | | (unavailable | 21:51:07 [facility] | | | + + + +------+ + + + + | Result panel 908 | + + + + + +--------+ + + | | 2022-12-16 | [facility] | 12.5 | (missing) | (missing) | | (unavailable | 21:51:07 [facility] | | | + + + +--------+ + + + + | Result panel 909 | + + + + + +-------+---------+ + | | 2022-12-16 | [facility] | 8.5 | mg/dL | (missing) | | (unavailable | 21:51:07 [facility] | | | + + + +-------+---------+ + + + | Result panel 910 | + + + + + +-------+ + + | | 2022-12-16 | [facility] | 6.5 | (missing) | (missing) | | (unavailable | 21:51:07 [facility] | | | + + + +-------+ + + + + | Result panel 911 | + + + + + +-------+ + + | | 2022-12-16 | [facility] | 2.7 | (missing) | (missing) | | (unavailable | 21:51:07 [facility] | | | + + + +-------+ + + + + | Result panel 912 | + + + + + +-------+ + + | | 2022-12-16 | [facility] | 3.8 | (missing) | (missing) | | (unavailable | 21:51:07 [facility] | | | + + + +-------+ + + + + | Result panel 913 | + + + + + +--------+ + + | | 2022-12-16 | [facility] | 0.71 | (missing) | (missing) | | (unavailable | 21:51:07 [facility] | | | + + + +--------+ + + + + | Result panel 91 | + + + + + +-------+ + + | | 2022-12-16 | [facility] | 0.2 | (missing) | (missing) | | (unavailable | 21:51:07 [facility] | | | + + + +-------+ + + + + | Result panel 915 | + + + + + +------+ + + | | 2022-12-16 | [facility] | 24 | (missing) | (missing) | | (unavailable | 21:51:07 [facility] | | | + + + +------+ + + + + | Result panel 916 | + + + + + +------+ + + | | 2022-12-16 | [facility] | 26 | (missing) | (missing) | | (unavailable | 21:51:07 [facility] | | | + + + +------+ + + + + | Result panel 917 | + + + + + +-------+ + + | | 2022-12-16 | [facility] | 147 | (missing) | (missing) | | (unavailable | 21:51:07 [facility] | | | + + + +-------+ + + + + | Result panel 918 | + + + + + + + + + | | 2022-12-16 | [facility] | NEGATIVE | (missing) | (missing) | | (unavailable | 21:51:07 [facility] | | | + + + + + + + + + | Result panel 919 | + + + + + + + + + | | 2022-12-16 | [facility] | NEGATIVE | (missing) | (missing) | | (unavailable | 21:51:07 [facility] | | | | + + + + + + + + + | Result panel 920 | + + + + + + + + + | | 2022-12-16 | [facility] | NEGATIVE | (missing) | (missing) | | (unavailable | 21:51:07 [facility] | | | | + + + + + + + + + | Result panel 921 | + + + + + + + + + | | 2022-12-16 | [facility] | NEGATIVE | (missing) | (missing) | | (unavailable | 21:51:07 [facility] | | | | + + + + + + + + + | Result panel 922 | + + + + + + + + + | | 2022-12-16 | [facility] | NEGATIVE | (missing) | (missing) | | (unavailable | 21:51:07 [facility] | | | | + + + + + + + + + | Result panel 923 | + + + + + + + + + | | 2022-12-16 | [facility] | NEGATIVE | (missing) | (missing) | | (unavailable | 21:51:07 [facility] | | | | + + + + + + + + + | Result panel 924 | + + + + + + + + + | | 2022-12-16 | [facility] | NEGATIVE | (missing) | (missing) | | (unavailable | 21:51:07 [facility] | | | | + + + + + + + + + | Result panel 925 | + + + + + + + + + | | 2022-12-16 | [facility] | NEGATIVE | (missing) | (missing) | | (unavailable | 21:51:07 [facility] | | | | + + + + + + + + + | Result panel 926 | + + + + + + + + + | | 2022-12-16 | [facility] | NEGATIVE | (missing) | (missing) | | (unavailable | 21:51:07 [facility] | | | | + + + + + + + + + | Result panel 927 | + + + + + + + + + | | 2022-12-16 | [facility] | NEGATIVE | (missing) | (missing) | | (unavailable | 21:51:07 [facility] | | | | + + + + + + + + + | Result panel 928 | + + + + + + + + + | | 2022-12-16 | [facility] | NEGATIVE | (missing) | (missing) | | (unavailable | 21:51:07 [facility] | | | | + + + + + + + + + | Result panel 929 | + + + + + + + + + | | 2022-12-16 | [facility] | NEGATIVE | (missing) | (missing) | | (unavailable | 21:51:07 [facility] | | | | + + + + + + + + + | Result panel 930 | + + + + + + + + + | | 2022-12-16 | [facility] | NEGATIVE | (missing) | (missing) | | (unavailable | 21:51:07 [facility] | | | | + + + + + + + + + | Result panel 931 | + + + + + + + + + | | 2022-12-16 | [facility] | YELLOW | (missing) | (missing) | | (unavailable | 21:51:07 [facility] | | | | + + + + + + + + + | Result panel 932 | + + + + + +---------+ + + | | 2022-12-16 | [facility] | CLEAR | (missing) | (missing) | | (unavailable | 21:51:07 [facility] | | | | + + + +---------+ + + + + | Result panel 933 | + + + + + + + + + | | 2022-12-16 | [facility] | NEGATIVE | (missing) | (missing) | | (unavailable | 21:51:07 [facility] | | | | + + + + + + + + + | Result panel 934 | + + + + + + + + + | | 2022-12-16 | [facility] | NEGATIVE | (missing) | (missing) | | (unavailable | 21:51:07 [facility] | | | | + + + + + + + + + | Result panel 935 | + + + + + + + + + | | 2022-12-16 | [facility] | NEGATIVE | (missing) | (missing) | | (unavailable | 21:51:07 [facility] | | | | + + + + + + + + + | Result panel 936 | + + + + + +---------+ + + | | 2022-12-16 | [facility] | 1.010 | (missing) | (missing) | | (unavailable | 21:51:07 [facility] | | | | + + + +---------+ + + + + | Result panel 937 | + + + + + + + + + | | 2022-12-16 | [facility] | NEGATIVE | (missing) | (missing) | | (unavailable | 21:51:07 [facility] | | | + + + + + + + + + | Result panel 938 | + + + + + +-------+ + + | | 2022-12-16 | [facility] | 5.5 | (missing) | (missing) | | (unavailable | 21:51:07 [facility] | | | | + + + +-------+ + + + + | Result panel 939 | + + + + + + + + + | | 2022-12-16 | [facility] | NEGATIVE | (missing) | (missing) | | (unavailable | 21:51:07 [facility] | | | | + + + + + + + + + | Result panel 940 | + + + + + + + + + | | 2022-12-16 | [facility] | NORMAL | (missing) | (missing) | | (unavailable | 21:51:07 | [facility] | | | | + + + + + + + + + | Result panel 941 | + + + + + + + + + | | 2022-12-16 | [facility] | NEGATIVE | (missing) | (missing) | | (unavailable | 21:51:07 | [facility] | | | | + + + + + + + + + | Result panel 942 | + + + + + + + + + | | 2022-12-16 | [facility] | NEGATIVE | (missing) | (missing) | | (unavailable | 21:51:07 | [facility] | | | | + + + + + + + + + | Result panel 943 | + + + + + +-------+ + + | | 2022-12-21 | [facility] | 8.5 | (missing) | (missing) | | (unavailable | 12:35:07 | [facility] | | | | + + + +-------+ + + + + | Result panel 944 | + + + + + +--------+ + + | | 2022-12-21 | [facility] | 77.2 | (missing) | (missing) | | (unavailable | 12:35:07 | [facility] | | | | + + + +--------+ + + + + | Result panel 945 | + + + + + +--------+ + + | | 2022-12-21 | [facility] | 11.8 | (missing) | (missing) | | (unavailable | 12:35:07 | [facility] | | | | + + + +--------+ + + + + | Result panel 946 | + + + + + +-------+ + + | | 2022-12-21 | [facility] | 8.7 | (missing) | (missing) | | (unavailable | 12:35:07 | [facility] | | | | + + + +-------+ + + + + | Result panel 947 | + + + + + +-------+ + + | | 2022-12-21 | [facility] | 8.5 | (missing) | (missing) | | (unavailable | 12:35:07 | [facility] | | | | + + + +-------+ + + + + | Result panel 948 | + + + + + +-------+ + + | | 2022-12-21 | [facility] | 2.0 | (missing) | (missing) | | (unavailable | 12:35:07 | [facility] | | | | + + + +-------+ + + + + | Result panel 949 | + + + + + +--------+ + + | | 2022-12-21 | [facility] | 3.64 | (missing) | (missing) | | (unavailable | 12:35:07 | [facility] | | | | + + + +--------+ + + + + | Result panel 950 | + + + + + +--------+ + + | | 2022-12-21 | [facility] | 11.3 | (missing) | (missing) | | (unavailable | 12:35:07 | [facility] | | | | + + + +--------+ + + + + | Result panel 951 | + + + + + +--------+ + + | | 2022-12-21 | [facility] | 34.3 | (missing) | (missing) | | (unavailable | 12:35:07 | [facility] | | | | + + + +--------+ + + + + | Result panel 952 | + + + + + +--------+ + + | | 2022-12-21 | [facility] | 94.2 | (missing) | (missing) | | (unavailable | 12:35:07 | [facility] | | | | + + + +--------+ + + + + | Result panel 953 | + + + + + +--------+ + + | | 2022-12-21 | [facility] | 31.0 | (missing) | (missing) | | (unavailable | 12:35:07 | [facility] | | | | + + + +--------+ + + + + | Result panel 954 | + + + + + +--------+ + + | | 2022-12-21 | [facility] | 32.9 | (missing) | (missing) | | (unavailable | 12:35:07 | [facility] | | | | + + + +--------+ + + + + | Result panel 955 | + + + + + +--------+ + + | | 2022-12-21 | [facility] | 14.2 | (missing) | (missing) | | (unavailable | 12:35:07 | [facility] | | | | + + + +--------+ + + + + | Result panel 956 | + + + + + +-------+ + + | | 2022-12-21 | [facility] | 328 | (missing) | (missing) | | (unavailable | 12:35:07 | [facility] | | | | + + + +-------+ + + + + | Result panel 957 | + + + + + +--------+ + + | | 2022-12-21 | [facility] | 77.2 | (missing) | (missing) | | (unavailable | 12:35:07 | [facility] | | | | + + + +--------+ + + + + | Result panel 958 | + + + + + +--------+ + + | | 2022-12-21 | [facility] | 11.8 | (missing) | (missing) | | (unavailable | 12:35:07 | [facility] | | | | + + + +--------+ + + + + | Result panel 959 | + + + + + +-------+ + + | | 2022-12-21 | [facility] | 0.3 | (missing) | (missing) | | (unavailable | 12:35:07 | [facility] | | | | + + + +-------+ + + + + | Result panel 960 | + + + + + +-------+ + + | | 2022-12-21 | [facility] | 8.7 | (missing) | (missing) | | (unavailable | [facility]07 [facility] | | | | + + + +-------+ + + + + | Result panel 961 | + + + + + +-------+ + + | | 2022-12-21 | [facility] | 2.0 | (missing) | (missing) | | (unavailable | [facility] | | | + + + +-------+ + + + + | Result panel 962 | + + + + + +-------+ + + | | 2022-12-21 | [facility] | 0.3 | (missing) | (missing) | | (unavailable | [facility]07 [facility] | | | + + + +-------+ + + + + | Result panel 963 | + + + + + +-------+---------+ + | | 2022-12-21 | [facility] | 183 | mg/dL | (missing) | | (unavailable | [facility]07 [facility] | | | + + + +-------+---------+ + + + | Result panel 964 | + + + + + +------+---------+ + | | 2022-12-21 | [facility] | 28 | mg/dL | (missing) | | (unavailable | [facility]07 [facility] | | | + + + +------+---------+ + + + | Result panel 965 | + + + + + +--------+---------+ + | | 2022-12-21 | [facility] | 1.21 | mg/dL | (missing) | | (unavailable | [facility]07 [facility] | | | + + + +--------+---------+ + + + | Result panel 966 | + + + + + +------+ + + | | 2022-12-21 | [facility] | 72 | (missing) | (missing) | | (unavailable | [facility]07 [facility] | | | + + + +------+ + + + + | Result panel 967 | + + + + + +---------+ + + | | 2022-12-21 | [facility] | 23.14 | (missing) | (missing) | | (unavailable | [facility]:07 [facility] | | | + + + +---------+ + + + + | Result panel 968 | + + + + + +-------+ + + | | 2022-12-21 | [facility] | 137 | (missing) | (missing) | | (unavailable | [facility]07 [facility] | | | + + + +-------+ + + + + | Result panel 969 | + + + + + +-------+ + + | | 2022-12-21 | [facility] | 4.0 | (missing) | (missing) | | (unavailable | [facility]07 [facility] | | | + + + +-------+ + + + + | Result panel 970 | + + + + + +-------+---------+ + | | 2022-12-21 | [facility] | 183 | mg/dL | (missing) | | (unavailable | [facility]:07 [facility] | | | + + + +-------+---------+ + + + | Result panel 971 | + + + + + +-------+ + + | | 2022-12-21 | [facility] | 101 | (missing) | (missing) | | (unavailable | [facility]:07 [facility] | | | + + + +-------+ + + + + | Result panel 972 | + + + + + +------+ + + | | 2022-12-21 | [facility] | 25 | (missing) | (missing) | | (unavailable | [facility]07 [facility] | | | + + + +------+ + + + + | Result panel 973 | + + + + + +--------+ + + | | 2022-12-21 | [facility] | 15.0 | (missing) | (missing) | | (unavailable | [facility]07 [facility] | | | + + + +--------+ + + + + | Result panel 974 | + + + + + +-------+---------+ + | | 2022-12-21 | [facility] | 8.3 | mg/dL | (missing) | | (unavailable | [facility]:07 [facility] | | | + + + +-------+---------+ + + + | Result panel 975 | + + + + + +-------+ + + | | 2022-12-21 | [facility] | 6.6 | (missing) | (missing) | | (unavailable | [facility]07 [facility] | | | + + + +-------+ + + + + | Result panel 976 | + + + + + +-------+ + + | | 2022-12-21 | [facility] | 2.7 | (missing) | (missing) | | (unavailable | [facility]07 [facility] | | | + + + +-------+ + + + + | Result panel 977 | + + + + + +-------+ + + | | 2022-12-21 | [facility] | 3.9 | (missing) | (missing) | | (unavailable | [facility]07 [facility] | | | + + + +-------+ + + + + | Result panel 978 | + + + + + +--------+ + + | | 2022-12-21 | [facility] | 0.69 | (missing) | (missing) | | (unavailable | [facility]07 [facility] | | | + + + +--------+ + + + + | Result panel 979 | + + + + + +-------+ + + | | 2022-12-21 | [facility] | 0.5 | (missing) | (missing) | | (unavailable | [facility]07 [facility] | | | + + + +-------+ + + + + | Result panel 980 | + + + + + +------+ + + | | 2022-12-21 | [facility] | 20 | (missing) | (missing) | | (unavailable | [facility]35:07 [facility] | | | + + + +------+ + + + + | Result panel 981 | + + + + + +------+---------+ + | | 2022-12-21 | [facility] | 28 | mg/dL | (missing) | | (unavailable | [facility]35:07 [facility] | | | + + + +------+---------+ + + + | Result panel 982 | + + + + + +------+ + + | | 2022-12-21 | [facility] | 24 | (missing) | (missing) | | (unavailable | [facility]:07 [facility] | | | + + + +------+ + + + + | Result panel 983 | + + + + + +-------+ + + | | 2022-12-21 | [facility] | 130 | (missing) | (missing) | | (unavailable | [facility]:07 [facility] | | | + + + +-------+ + + + + | Result panel 984 | + + + + + +--------+---------+ + | | 2022-12-21 | [facility] | 1.21 | mg/dL | (missing) | | (unavailable | [facility]:07 [facility] | | | + + + +--------+---------+ + + + | Result panel 985 | + + + + + +------+ + + | | 2022-12-21 | [facility] | 72 | (missing) | (missing) | | (unavailable | [facility]:07 [facility] | | | + + + +------+ + + + + | Result panel 986 | + + + + + +---------+ + + | | 2022-12-21 | [facility] | 23.14 | (missing) | (missing) | | (unavailable | [facility]:07 [facility] | | | + + + +---------+ + + + + | Result panel 987 | + + + + + +--------+ + + | | 2022-12-21 | [facility] | 3.64 | (missing) | (missing) | | (unavailable | [facility]35:07 [facility] | | | + + + +--------+ + + + + | Result panel 988 | + + + + + +-------+ + + | | 2022-12-21 | [facility] | 137 | (missing) | (missing) | | (unavailable | [facility]35:07 [facility] | | | + + + +-------+ + + + + | Result panel 989 | + + + + + +-------+ + + | | 2022-12-21 | [facility] | 4.0 | (missing) | (missing) | | (unavailable | [facility]35:07 [facility] | | | + + + +-------+ + + + + | Result panel 990 | + + + + + +-------+ + + | | 2022-12-21 | [facility] | 101 | (missing) | (missing) | | (unavailable | [facility]35:07 [facility] | | | + + + +-------+ + + + + | Result panel 991 | + + + + + +------+ + + | | 2022-12-21 | [facility] | 25 | (missing) | (missing) | | (unavailable | [facility]35:07 [facility] | | | + + + +------+ + + + + | Result panel 992 | + + + + + +--------+ + + | | 2022-12-21 | [facility] | 15.0 | (missing) | (missing) | | (unavailable | [facility]07 [facility] | | | + + + +--------+ + + + + | Result panel 993 | + + + + + +-------+---------+ + | | 2022-12-21 | [facility] | 8.3 | mg/dL | (missing) | | (unavailable | [facility]35:07 [facility] | | | + + + +-------+---------+ + + + | Result panel 994 | + + + + + +-------+ + + | | 2022-12-21 | [facility] | 6.6 | (missing) | (missing) | | (unavailable | [facility]35:07 [facility] | | | + + + +-------+ + + + + | Result panel 995 | + + + + + +-------+ + + | | 2022-12-21 | [facility] | 2.7 | (missing) | (missing) | | (unavailable | [facility]35:07 [facility] | | | + + + +-------+ + + + + | Result panel 996 | + + + + + +-------+ + + | | 2022-12-21 | [facility] | 3.9 | (missing) | (missing) | | (unavailable | [facility]35:07 [facility] | | | + + + +-------+ + + + + | Result panel 997 | + + + + + +--------+ + + | | 2022-12-21 | [facility] | 0.69 | (missing) | (missing) | | (unavailable | [facility]35:07 [facility] | | | + + + +--------+ + + + + | Result panel 998 | + + + + + +--------+ + + | | 2022-12-21 | [facility] | 11.3 | (missing) | (missing) | | (unavailable | [facility]35:07 [facility] | | | + + + +--------+ + + + + | Result panel 999 | + + + + + +-------+ + + | | 2022-12-21 | [facility] | 0.5 | (missing) | (missing) | | (unavailable | [facility]35:07 [facility] | | | + + + +-------+ + + + + | Result panel 1000 | + + + + + +------+ + + | | 2022-12-21 | [facility] | 20 | (missing) | (missing) | | (unavailable | [facility]35:07 [facility] | | | + + + +------+ + + + + | Result panel 1001 | + + + + + +------+ + + | | 2022-12-21 | [facility] | 24 | (missing) | (missing) | | (unavailable | [facility]35:07 [facility] | | | + + + +------+ + + + + | Result panel 1002 | + + + + + +-------+ + + | | 2022-12-21 | [facility] | 130 | (missing) | (missing) | | (unavailable | [facility]35:07 [facility] | | | + + + +-------+ + + + + | Result panel 1003 | + + + + + +--------+ + + | | 2022-12-21 | [facility] | 34.3 | (missing) | (missing) | | (unavailable | [facility]35:07 [facility] | | | + + + +--------+ + + + + | Result panel 1004 | + + + + + +--------+ + + | | 2022-12-21 | [facility] | 94.2 | (missing) | (missing) | | (unavailable | [facility]35:07 [facility] | | | + + + +--------+ + + + + | Result panel 1005 | + + + + + +-------+ + + | | 2022-12-21 | [facility] | 8.5 | (missing) | (missing) | | (unavailable | [facility]35:07 [facility] | | | + + + +-------+ + + + + | Result panel 1006 | + + + + + +--------+ + + | | 2022-12-21 | [facility] | 31.0 | (missing) | (missing) | | (unavailable | [facility]35:07 [facility] | | | + + + +--------+ + + + + | Result panel 1007 | + + + + + +--------+ + + | | 2022-12-21 | [facility] | 3.64 | (missing) | (missing) | | (unavailable | [facility]35:07 [facility] | | | + + + +--------+ + + + + | Result panel 1008 | + + + + + +--------+ + + | | 2022-12-21 | [facility] | 11.3 | (missing) | (missing) | | (unavailable | [facility]35:07 [facility] | | | + + + +--------+ + + + + | Result panel 1009 | + + + + + +--------+ + + | | 2022-12-21 | [facility] | 34.3 | (missing) | (missing) | | (unavailable | [facility]35:07 [facility] | | | + + + +--------+ + + + + | Result panel 1010 | + + + + + +--------+ + + | | 2022-12-21 | [facility] | 94.2 | (missing) | (missing) | | (unavailable | [facility]35:07 [facility] | | | + + + +--------+ + + + + | Result panel 1011 | + + + + + +--------+ + + | | 2022-12-21 | [facility] | 31.0 | (missing) | (missing) | | (unavailable | [facility]35:07 [facility] | | | + + + +--------+ + + + + | Result panel 1012 | + + + + + +--------+ + + | | 2022-12-21 | [facility] | 32.9 | (missing) | (missing) | | (unavailable | [facility]35:07 [facility] | | | + + + +--------+ + + + + | Result panel 1013 | + + + + + +--------+ + + | | 2022-12-21 | [facility] | 14.2 | (missing) | (missing) | | (unavailable | [facility]:07 [facility] | | | + + + +--------+ + + + + | Result panel 1014 | + + + + + +-------+ + + | | 2022-12-21 | [facility] | 328 | (missing) | (missing) | | (unavailable | [facility]35:07 [facility] | | | + + + +-------+ + + + + | Result panel 1015 | + + + + + +--------+ + + | | 2022-12-21 | [facility] | 77.2 | (missing) | (missing) | | (unavailable | [facility]35:07 [facility] | | | + + + +--------+ + + + + | Result panel 1016 | + + + + + +--------+ + + | | 2022-12-21 | [facility] | 11.8 | (missing) | (missing) | | (unavailable | [facility]35:07 [facility] | | | + + + +--------+ + + + + | Result panel 1017 | + + + + + +--------+ + + | | 2022-12-21 | [facility] | 32.9 | (missing) | (missing) | | (unavailable | [facility]35:07 [facility] | | | + + + +--------+ + + + + | Result panel 1018 | + + + + + +-------+ + + | | 2022-12-21 | [facility] | 8.7 | (missing) | (missing) | | (unavailable | [facility]35:07 [facility] | | | + + + +-------+ + + + + | Result panel 1019 | + + + + + +-------+ + + | | 2022-12-21 | [facility] | 2.0 | (missing) | (missing) | | (unavailable | [facility]35:07 [facility] | | | + + + +-------+ + + + + | Result panel 1020 | + + + + + +-------+ + + | | 2022-12-21 | [facility] | 0.3 | (missing) | (missing) | | (unavailable | [facility]35:07 [facility] | | | + + + +-------+ + + + + | Result panel 1021 | + + + + + +-------+---------+ + | | 2022-12-21 | [facility] | 183 | mg/dL | (missing) | | (unavailable | [facility]35:07 [facility] | | | + + + +-------+---------+ + + + | Result panel 1022 | + + + + + +------+---------+ + | | 2022-12-21 | [facility] | 28 | mg/dL | (missing) | | (unavailable | [facility]35:07 [facility] | | | + + + +------+---------+ + + + | Result panel 1023 | + + + + + +--------+---------+ + | | 2022-12-21 | [facility] | 1.21 | mg/dL | (missing) | | (unavailable | [facility]:07 [facility] | | | + + + +--------+---------+ + + + | Result panel 1024 | + + + + + +------+ + + | | 2022-12-21 | [facility] | 72 | (missing) | (missing) | | (unavailable | [facility]35:07 [facility] | | | + + + +------+ + + + + | Result panel 1025 | + + + + + +---------+ + + | | 2022-12-21 | [facility] | 23.14 | (missing) | (missing) | | (unavailable | [facility]35:07 [facility] | | | + + + +---------+ + + + + | Result panel 1026 | + + + + + +-------+ + + | | 2022-12-21 | [facility] | 137 | (missing) | (missing) | | (unavailable | [facility]35:07 [facility] | | | + + + +-------+ + + + + | Result panel 1027 | + + + + + +-------+ + + | | 2022-12-21 | [facility] | 4.0 | (missing) | (missing) | | (unavailable | [facility]:07 [facility] | | | + + + +-------+ + + + + | Result panel 1028 | + + + + + +--------+ + + | | 2022-12-21 | [facility] | 14.2 | (missing) | (missing) | | (unavailable | [facility]:07 [facility] | | | + + + +--------+ + + + + | Result panel 1029 | + + + + + +-------+ + + | | 2022-12-21 | [facility] | 101 | (missing) | (missing) | | (unavailable | [facility]:07 [facility] | | | + + + +-------+ + + + + | Result panel 1030 | + + + + + +------+ + + | | 2022-12-21 | [facility] | 25 | (missing) | (missing) | | (unavailable | [facility]:07 [facility] | | | + + + +------+ + + + + | Result panel 1031 | + + + + + +--------+ + + | | 2022-12-21 | [facility] | 15.0 | (missing) | (missing) | | (unavailable | [facility]:07 [facility] | | | + + + +--------+ + + + + | Result panel 1032 | + + + + + +-------+---------+ + | | 2022-12-21 | [facility] | 8.3 | mg/dL | (missing) | | (unavailable | [facility]35:07 [facility] | | | + + + +-------+---------+ + + + | Result panel 1033 | + + + + + +-------+ + + | | 2022-12-21 | [facility] | 6.6 | (missing) | (missing) | | (unavailable | [facility]35:07 [facility] | | | + + + +-------+ + + + + | Result panel 1034 | + + + + + +-------+ + + | | 2022-12-21 | [facility] | 2.7 | (missing) | (missing) | | (unavailable | [facility]:07 [facility] | | | + + + +-------+ + + + + | Result panel 1035 | + + + + + +-------+ + + | | 2022-12-21 | [facility] | 3.9 | (missing) | (missing) | | (unavailable | [facility]:07 [facility] | | | + + + +-------+ + + + + | Result panel 1036 | + + + + + +--------+ + + | | 2022-12-21 | [facility] | 0.69 | (missing) | (missing) | | (unavailable | [facility]35:07 [facility] | | | + + + +--------+ + + + + | Result panel 1037 | + + + + + +-------+ + + | | 2022-12-21 | [facility] | 0.5 | (missing) | (missing) | | (unavailable | [facility]:07 [facility] | | | + + + +-------+ + + + + | Result panel 1038 | + + + + + +------+ + + | | 2022-12-21 | [facility] | 20 | (missing) | (missing) | | (unavailable | [facility]:07 [facility] | | | + + + +------+ + + + + | Result panel 1039 | + + + + + +-------+ + + | | 2022-12-21 | [facility] | 328 | (missing) | (missing) | | (unavailable | 12[facility]35:07 [facility] | | | + + + +-------+ + + + + | Result panel 1040 | + + + + + +------+ + + | | 2022-12-21 | [facility] | 24 | (missing) | (missing) | | (unavailable | 12[facility]35:07 [facility] | | | + + + +------+ + + + + | Result panel 1041 | + + + + + +-------+ + + | | 2022-12-21 | [facility] | 130 | (missing) | (missing) | | (unavailable | 12[facility]35:07 [facility] | | | + + + +-------+ + + + + | Result panel 1042 | + + + + + + + + + | | 2022-12-21 | [facility] | NEGATIVE | (missing) | (missing) | | (unavailable | 13:41:07 [facility] | | | | + + + + + + + + + | Result panel 1043 | + + + + + + + + + | | 2022-12-21 | [facility] | POSITIVE | (missing) | (missing) | | (unavailable | 13:41:07 [facility] | | | | + + + + + + + + + | Result panel 1044 | + + + + + + + + + | | 2022-12-21 | [facility] | NEGATIVE | (missing) | (missing) | | (unavailable | [facility]41:07 [facility] | | | | + + + + + + + + + | Result panel 1045 | + + + + + + + + + | | 2022-12-21 | [facility] | NEGATIVE | (missing) | (missing) | | (unavailable | [facility]41:07 [facility] | | | | + + + + + + + + + | Result panel 1046 | + + + + + + + + + | | 2022-12-21 | [facility] | NEGATIVE | (missing) | (missing) | | (unavailable | 13:41:07 [facility] | | | | + + + + + + + + + | Result panel 1047 | + + + + + + + + + | | 2022-12-21 | [facility] | NEGATIVE | (missing) | (missing) | | (unavailable | [facility]41:07 [facility] | | | | + + + + + + + + + | Result panel 1048 | + + + + + + + + + | | 2022-12-21 | [facility] | POSITIVE | (missing) | (missing) | | (unavailable | 13:41:07 [facility] | | | | + + + + + + + + + | Result panel 1049 | + + + + + + + + + | | 2022-12-21 | [facility] | NEGATIVE | (missing) | (missing) | | (unavailable | 13:41:07 [facility] | | | | + + + + + + + + + | Result panel 1050 | + + + + + + + + + | | 2022-12-21 | [facility] | NEGATIVE | (missing) | (missing) | | (unavailable | 13:41:07 [facility] | | | | + + + + + + + + + | Result panel 1051 | + + + + + + + + + | | 2022-12-21 | [facility] | NEGATIVE | (missing) | (missing) | | (unavailable | 13:41:07 [facility] | | | | + + + + + + + + + | Result panel 1052 | + + + + + + + + + | | 2022-12-21 | [facility] | NEGATIVE | (missing) | (missing) | | (unavailable | 13:41:07 [facility] | | | | + + + + + + + + + | Result panel 1053 | + + + + + + + + + | | 2022-12-21 | [facility] | NEGATIVE | (missing) | (missing) | | (unavailable | 13:41:07 [facility] | | | | + + + + + + + + + | Result panel 105 | + + + + + + + + + | | 2022-12-21 | [facility] | NEGATIVE | (missing) | (missing) | | (unavailable | 13:41:07 [facility] | | | | + + + + + + + + + | Result panel 1055 | + + + + + + + + + | | 2022-12-21 | [facility] | NEGATIVE | (missing) | (missing) | | (unavailable | 13:41:07 [facility] | | | | + + + + + + + + + | Result panel 1056 | + + + + + + + + + | | 2022-12-21 | [facility] | POSITIVE | (missing) | (missing) | | (unavailable | 13:41:07 [facility] | | | | + + + + + + + + + | Result panel 1057 | + + + + + + + + + | | 2022-12-21 | [facility] | NEGATIVE | (missing) | (missing) | | (unavailable | 13:41:07 [facility] | | | | + + + + + + + + + | Result panel 1058 | + + + + + + + + + | | 2022-12-21 | [facility] | NEGATIVE | (missing) | (missing) | | (unavailable | 13:41:07 [facility] | | | | + + + + + + + + + | Result panel 1059 | + + + + + + + + + | | 2022-12-21 | [facility] | NEGATIVE | (missing) | (missing) | | (unavailable | 13:41:07 [facility] | | | | + + + + + + + + + | Result panel 1060 | + + + + + + + + + | | 2022-12-21 | [facility] | NEGATIVE | (missing) | (missing) | | (unavailable | 13:41:07 [facility] | | | | + + + + + + + + + | Result panel 1061 | + + + + + + + + + | | 2022-12-21 | [facility] | POSITIVE | (missing) | (missing) | | (unavailable | 13:41:07 [facility] | | | | + + + + + + + + + | Result panel 1062 | + + + + + + + + + | | 2022-12-21 | [facility] | NEGATIVE | (missing) | (missing) | | (unavailable | 13:41:07 [facility] | | | | + + + + + + + + + | Result panel 1063 | + + + + + + + + + | | 2022-12-21 | [facility] | NEGATIVE | (missing) | (missing) | | (unavailable | 13:41:07 [facility] | | | | + + + + + + + + + | Result panel 1064 | + + + + + + + + + | | 2022-12-21 | [facility] | NEGATIVE | (missing) | (missing) | | (unavailable | 13:41:07 [facility] | | | | + + + + + + + + + | Result panel 1065 | + + + + + + + + + | | 2022-12-21 | [facility] | NEGATIVE | (missing) | (missing) | | (unavailable | 13:41:07 [facility] | | | | + + + + + + + + + | Result panel 1066 | + + + + + + + + + | | 2022-12-21 | [facility] | NEGATIVE | (missing) | (missing) | | (unavailable | 13:41:07 [facility] | | | | + + + + + + + + + | Result panel 1067 | + + + + + + + + + | | 2022-12-21 | [facility] | NEGATIVE | (missing) | (missing) | | (unavailable | 13:41:07 | [facility] | | | | + + + + + + + + + | Result panel 1068 | + + + + + + + + + | | 2022-12-21 | [facility] | NEGATIVE | (missing) | (missing) | | (unavailable | 13:41:07 | [facility] | | | | + + + + + + + + + | Result panel 1069 | + + + + + + + + + | | 2022-12-21 | [facility] | POSITIVE | (missing) | (missing) | | (unavailable | 13:41:07 | [facility] | | | | + + + + + + + + + | Result panel 1070 | + + + + + + + + + | | 2022-12-21 | [facility] | NEGATIVE | (missing) | (missing) | | (unavailable | 13:41:07 | [facility] | | | | + + + + + + + + + | Result panel 1071 | + + + + + + + + + | | 2022-12-21 | [facility] | NEGATIVE | (missing) | (missing) | | (unavailable | 13:41:07 | [facility] | | | | + + + + + + + + + | Result panel 1072 | + + + + + + + + + | | 2022-12-21 | [facility] | NEGATIVE | (missing) | (missing) | | (unavailable | 13:41:07 | [facility] | | | | + + + + + + + + + | Result panel 1073 | + + + + + + + + + | | 2022-12-21 | [facility] | NEGATIVE | (missing) | (missing) | | (unavailable | 13:41:07 | [facility] | | | | + + + + + + + + + | Result panel 1074 | + + + + + + + + + | | 2022-12-21 | [facility] | POSITIVE | (missing) | (missing) | | (unavailable | 13:41:07 | [facility] | | | | + + + + + + + + + | Result panel 1075 | + + + + + + + + + | | 2022-12-21 | [facility] | NEGATIVE | (missing) | (missing) | | (unavailable | 13:41:07 | [facility] | | | | + + + + + + + + + | Result panel 1076 | + + + + + + + + + | | 2022-12-21 | [facility] | NEGATIVE | (missing) | (missing) | | (unavailable | 13:41:07 | [facility] | | | | + + + + + + + + + | Result panel 1077 | + + + + + + + + + | | 2022-12-21 | [facility] | NEGATIVE | (missing) | (missing) | | (unavailable | 13:41:07 | [facility] | | | | + + + + + + + + + | Result panel 1078 | + + + + + + + + + | | 2022-12-21 | [facility] | NEGATIVE | (missing) | (missing) | | (unavailable | 13:41:07 | [facility] | | | | + + + + + + + + + | Result panel 1079 | + + + + + + + + + | | 2022-12-21 | [facility] | NEGATIVE | (missing) | (missing) | | (unavailable | 13:41:07 | [facility] | | | | + + + + + + + + + | Result panel 1080 | + + + + + + + + + | | 2022-12-21 | [facility] | NEGATIVE | (missing) | (missing) | | (unavailable | 13:41:07 | [facility] | | | | + + + + + + + Social History No information. Vital Signs + + + +---------+ | date | measurement | value | units | + + + +---------+ | 2021-08-27 00:00 | BMI | 20.6 | kg/m2 | + + + +---------+ | 2021-08-27 00:00 | BP_diastolic | 89 | mmHg | + + + +---------+ | 2021-08-27 00:00 | BP_systolic | 157 | mmHg | + + + +---------+ | 2021-08-27 00:00 | heart_rate | 69 | /min | + + + +---------+ | 2021-08-27 00:00 | height_metric | 162.56 | cm | + + + +---------+ | 2021-08-27 00:00 | height_standard | 64 | in | + + + +---------+ | 2021-08-27 00:00 | o2_saturation | 97 | % | + + + +---------+ | 2021-08-27 00:00 | respiration_rate | 16 | /min | + + + +---------+ | 2021-08-27 00:00 | temperature_metric | 36.72 | C | | | | | | + + + +---------+ | 2021-08-27 00:00 | | 98.1 | F | | | temperature_standar | | | | | d | | | + + + +---------+ | 2021-08-27 00:00 | weight_metric | 54.43 | kg | + + + +---------+ | 2021-08-27 00:00 | weight_standard | 120 | lb | + + + +---------+ | 2021-09-01 00:00 | BMI | 20.6 | kg/m2 | + + + +---------+ | 2021-09-01 00:00 | BP_diastolic | 90 | mmHg | + + + +---------+ | 2021-09-01 00:00 | BP_systolic | 145 | mmHg | + + + +---------+ | 2021-09-01 00:00 | heart_rate | 85 | /min | + + + +---------+ | 2021-09-01 00:00 | height_metric | 162.56 | cm | + + + +---------+ | 2021-09-01 00:00 | height_standard | 64 | in | + + + +---------+ | 2021-09-01 00:00 | o2_saturation | 97 | % | + + + +---------+ | 2021-09-01 00:00 | respiration_rate | 18 | /min | + + + +---------+ | 2021-09-01 00:00 | temperature_metric | 36.67 | C | | | | | | + + + +---------+ | 2021-09-01 00:00 | | 98 | F | | | temperature_standar | | | | | d | | | + + + +---------+ | 2021-09-01 00:00 | weight_metric | 54.43 | kg | + + + +---------+ | 2021-09-01 00:00 | weight_standard | 120 | lb | + + + +---------+ | 2021-09-15 00:00 | BMI | 21.5 | kg/m2 | + + + +---------+ | 2021-09-15 00:00 | BP_diastolic | 101 | mmHg | + + + +---------+ | 2021-09-15 00:00 | BP_systolic | 158 | mmHg | + + + +---------+ | 2021-09-15 00:00 | heart_rate | 75 | /min | + + + +---------+ | 2021-09-15 00:00 | height_metric | 162.56 | cm | + + + +---------+ | 2021-09-15 00:00 | height_standard | 64 | in | + + + +---------+ | 2021-09-15 00:00 | o2_saturation | 98 | % | + + + +---------+ | 2021-09-15 00:00 | respiration_rate | 16 | /min | + + + +---------+ | 2021-09-15 00:00 | temperature_metric | 36.61 | C | | | | | | + + + +---------+ | 2021-09-15 00:00 | | 97.9 | F | | | temperature_standar | | | | | d | | | + + + +---------+ | 2021-09-15 00:00 | weight_metric | 56.7 | kg | + + + +---------+ | 2021-09-15 00:00 | weight_standard | 125 | lb | + + + +---------+ | 2021-09-21 00:00 | BMI | 21.5 | kg/m2 | + + + +---------+ | 2021-09-21 00:00 | BP_diastolic | 127 | mmHg | + + + +---------+ | 2021-09-21 00:00 | BP_systolic | 187 | mmHg | + + + +---------+ | 2021-09-21 00:00 | heart_rate | 65 | /min | + + + +---------+ | 2021-09-21 00:00 | height_metric | 162.56 | cm | + + + +---------+ | 2021-09-21 00:00 | height_standard | 64 | in | + + + +---------+ | 2021-09-21 00:00 | o2_saturation | 96 | % | + + + +---------+ | 2021-09-21 00:00 | respiration_rate | 16 | /min | + + + +---------+ | 2021-09-21 00:00 | temperature_metric | 36.78 | C | | | | | | + + + +---------+ | 2021-09-21 00:00 | | 98.2 | F | | | temperature_standar | | | | | d | | | + + + +---------+ | 2021-09-21 00:00 | weight_metric | 56.7 | kg | + + + +---------+ | 2021-09-21 00:00 | weight_standard | 125 | lb | + + + +---------+ | 2021-09-22 00:00 | BMI | 21.7 | kg/m2 | + + + +---------+ | 2021-09-22 00:00 | BP_diastolic | 104 | mmHg | + + + +---------+ | 2021-09-22 00:00 | BP_systolic | 169 | mmHg | + + + +---------+ | 2021-09-22 00:00 | heart_rate | 80 | /min | + + + +---------+ | 2021-09-22 00:00 | height_metric | 162.56 | cm | + + + +---------+ | 2021-09-22 00:00 | height_standard | 64 | in | + + + +---------+ | 2021-09-22 00:00 | o2_saturation | 92 | % | + + + +---------+ | 2021-09-22 00:00 | respiration_rate | 18 | /min | + + + +---------+ | 2021-09-22 00:00 | temperature_metric | 36.83 | C | | | | | | + + + +---------+ | 2021-09-22 00:00 | | 98.3 | F | | | temperature_standar | | | | | d | | | + + + +---------+ | 2021-09-22 00:00 | weight_metric | 57.3 | kg | + + + +---------+ | 2021-09-22 00:00 | weight_standard | 126.32 | lb | + + + +---------+ | 2021-09-22 00:00 | weight_standard | 126.33 | lb | + + + +---------+ | 2021-11-12 00:00 | BMI | 21.6 | kg/m2 | + + + +---------+ | 2021-11-12 00:00 | BP_diastolic | 108 | mmHg | + + + +---------+ | 2021-11-12 00:00 | BP_diastolic | 117 | mmHg | + + + +---------+ | 2021-11-12 00:00 | BP_systolic | 169 | mmHg | + + + +---------+ | 2021-11-12 00:00 | BP_systolic | 171 | mmHg | + + + +---------+ | 2021-11-12 00:00 | heart_rate | 79 | /min | + + + +---------+ | 2021-11-12 00:00 | heart_rate | 84 | /min | + + + +---------+ | 2021-11-12 00:00 | height_metric | 162.56 | cm | + + + +---------+ | 2021-11-12 00:00 | height_standard | 64 | in | + + + +---------+ | 2021-11-12 00:00 | o2_saturation | 98 | % | + + + +---------+ | 2021-11-12 00:00 | o2_saturation | 99 | % | + + + +---------+ | 2021-11-12 00:00 | respiration_rate | 16 | /min | + + + +---------+ | 2021-11-12 00:00 | respiration_rate | 17 | /min | + + + +---------+ | 2021-11-12 00:00 | temperature_metric | 36.33 | C | | | | | | + + + +---------+ | 2021-11-12 00:00 | temperature_metric | 36.89 | C | | | | | | + + + +---------+ | 2021-11-12 00:00 | | 97.4 | F | | | temperature_standar | | | | | d | | | + + + +---------+ | 2021-11-12 00:00 | | 98.4 | F | | | temperature_standar | | | | | d | | | + + + +---------+ | 2021-11-12 00:00 | weight_metric | 57.15 | kg | + + + +---------+ | 2021-11-12 00:00 | weight_standard | 125.99 | lb | + + + +---------+ | 2021-11-12 00:00 | weight_standard | 126 | lb | + + + +---------+ | 2022-01-03 00:00 | BMI | 21.6 | kg/m2 | + + + +---------+ | 2022-01-03 00:00 | BP_diastolic | 70 | mmHg | + + + +---------+ | 2022-01-03 00:00 | BP_systolic | 128 | mmHg | + + + +---------+ | 2022-01-03 00:00 | heart_rate | 80 | /min | + + + +---------+ | 2022-01-03 00:00 | height_metric | 162.56 | cm | + + + +---------+ | 2022-01-03 00:00 | height_standard | 64 | in | + + + +---------+ | 2022-01-03 00:00 | o2_saturation | 98 | % | + + + +---------+ | 2022-01-03 00:00 | respiration_rate | 16 | /min | + + + +---------+ | 2022-01-03 00:00 | temperature_metric | 36.72 | C | | | | | | + + + +---------+ | 2022-01-03 00:00 | | 98.1 | F | | | temperature_standar | | | | | d | | | + + + +---------+ | 2022-01-03 00:00 | weight_metric | 57.15 | kg | + + + +---------+ | 2022-01-03 00:00 | weight_standard | 125.99 | lb | + + + +---------+ | 2022-01-03 00:00 | weight_standard | 126 | lb | + + + +---------+ | 2022-01-04 00:00 | BMI | 19.7 | kg/m2 | + + + +---------+ | 2022-01-04 00:00 | height_metric | 162.56 | cm | + + + +---------+ | 2022-01-04 00:00 | height_standard | 64 | in | + + + +---------+ | 2022-01-04 00:00 | weight_metric | 52 | kg | + + + +---------+ | 2022-01-04 00:00 | weight_standard | 114.64 | lb | + + + +---------+ | 2022-01-05 00:00 | BP_diastolic | 103 | mmHg | + + + +---------+ | 2022-01-05 00:00 | BP_systolic | 152 | mmHg | + + + +---------+ | 2022-01-05 00:00 | heart_rate | 77 | /min | + + + +---------+ | 2022-01-05 00:00 | o2_saturation | 98 | % | + + + +---------+ | 2022-01-05 00:00 | respiration_rate | 18 | /min | + + + +---------+ | 2022-01-05 00:00 | temperature_metric | 36.72 | C | | | | | | + + + +---------+ | 2022-01-05 00:00 | | 98.1 | F | | | temperature_standar | | | | | d | | | + + + +---------+ | 2022-01-13 00:00 | BMI | 19.3 | kg/m2 | + + + +---------+ | 2022-01-13 00:00 | height_metric | 162.56 | cm | + + + +---------+ | 2022-01-13 00:00 | height_standard | 64 | in | + + + +---------+ | 2022-01-13 00:00 | weight_metric | 51 | kg | + + + +---------+ | 2022-01-13 00:00 | weight_standard | 112.44 | lb | + + + +---------+ | 2022-01-14 00:00 | BP_diastolic | 100 | mmHg | + + + +---------+ | 2022-01-14 00:00 | BP_systolic | 173 | mmHg | + + + +---------+ | 2022-01-14 00:00 | heart_rate | 66 | /min | + + + +---------+ | 2022-01-14 00:00 | o2_saturation | 97 | % | + + + +---------+ | 2022-01-14 00:00 | respiration_rate | 18 | /min | + + + +---------+ | 2022-01-14 00:00 | temperature_metric | 36.78 | C | | | | | | + + + +---------+ | 2022-01-14 00:00 | | 98.2 | F | | | temperature_standar | | | | | d | | | + + + +---------+ | 2022-01-23 00:00 | BMI | 19.2 | kg/m2 | + + + +---------+ | 2022-01-23 00:00 | BP_diastolic | 101 | mmHg | + + + +---------+ | 2022-01-23 00:00 | BP_systolic | 171 | mmHg | + + + +---------+ | 2022-01-23 00:00 | heart_rate | 78 | /min | + + + +---------+ | 2022-01-23 00:00 | height_metric | 162.56 | cm | + + + +---------+ | 2022-01-23 00:00 | height_standard | 64 | in | + + + +---------+ | 2022-01-23 00:00 | o2_saturation | 95 | % | + + + +---------+ | 2022-01-23 00:00 | respiration_rate | 18 | /min | + + + +---------+ | 2022-01-23 00:00 | temperature_metric | 36.56 | C | | | | | | + + + +---------+ | 2022-01-23 00:00 | | 97.8 | F | | | temperature_standar | | | | | d | | | + + + +---------+ | 2022-01-23 00:00 | weight_metric | 50.8 | kg | + + + +---------+ | 2022-01-23 00:00 | weight_standard | 111.99 | lb | + + + +---------+ | 2022-01-23 00:00 | weight_standard | 112 | lb | + + + +---------+ | 2022-01-25 00:00 | BMI | 19.6 | kg/m2 | + + + +---------+ | 2022-01-25 00:00 | BP_diastolic | 112 | mmHg | + + + +---------+ | 2022-01-25 00:00 | BP_systolic | 159 | mmHg | + + + +---------+ | 2022-01-25 00:00 | heart_rate | 76 | /min | + + + +---------+ | 2022-01-25 00:00 | height_metric | 162.56 | cm | + + + +---------+ | 2022-01-25 00:00 | height_standard | 64 | in | + + + +---------+ | 2022-01-25 00:00 | o2_saturation | 100 | % | + + + +---------+ | 2022-01-25 00:00 | respiration_rate | 16 | /min | + + + +---------+ | 2022-01-25 00:00 | temperature_metric | 36.39 | C | | | | | | + + + +---------+ | 2022-01-25 00:00 | | 97.5 | F | | | temperature_standar | | | | | d | | | + + + +---------+ | 2022-01-25 00:00 | weight_metric | 51.71 | kg | + + + +---------+ | 2022-01-25 00:00 | weight_standard | 114 | lb | + + + +---------+ | 2022-01-28 00:00 | BMI | 19.9 | kg/m2 | + + + +---------+ | 2022-01-28 00:00 | height_metric | 162.56 | cm | + + + +---------+ | 2022-01-28 00:00 | height_standard | 64 | in | + + + +---------+ | 2022-01-28 00:00 | weight_metric | 52.5 | kg | + + + +---------+ | 2022-01-28 00:00 | weight_standard | 115.74 | lb | + + + +---------+ | 2022-01-31 00:00 | BP_diastolic | 91 | mmHg | + + + +---------+ | 2022-01-31 00:00 | BP_systolic | 169 | mmHg | + + + +---------+ | 2022-01-31 00:00 | heart_rate | 75 | /min | + + + +---------+ | 2022-01-31 00:00 | o2_saturation | 100 | % | + + + +---------+ | 2022-01-31 00:00 | respiration_rate | 16 | /min | + + + +---------+ | 2022-01-31 00:00 | temperature_metric | 36.44 | C | | | | | | + + + +---------+ | 2022-01-31 00:00 | | 97.6 | F | | | temperature_standar | | | | | d | | | + + + +---------+ | 2022-02-03 00:00 | BMI | 18.5 | kg/m2 | + + + +---------+ | 2022-02-03 00:00 | BMI | 19.7 | kg/m2 | + + + +---------+ | 2022-02-03 00:00 | BP_diastolic | 000 | mmHg | + + + +---------+ | 2022-02-03 00:00 | BP_diastolic | 57 | mmHg | + + + +---------+ | 2022-02-03 00:00 | BP_systolic | 00 | mmHg | + + + +---------+ | 2022-02-03 00:00 | BP_systolic | 112 | mmHg | + + + +---------+ | 2022-02-03 00:00 | heart_rate | 00 | /min | + + + +---------+ | 2022-02-03 00:00 | heart_rate | 83 | /min | + + + +---------+ | 2022-02-03 00:00 | height_metric | 162.56 | cm | + + + +---------+ | 2022-02-03 00:00 | height_standard | 64 | in | + + + +---------+ | 2022-02-03 00:00 | o2_saturation | 00 | % | + + + +---------+ | 2022-02-03 00:00 | o2_saturation | 98 | % | + + + +---------+ | 2022-02-03 00:00 | respiration_rate | 00 | /min | + + + +---------+ | 2022-02-03 00:00 | respiration_rate | 16 | /min | + + + +---------+ | 2022-02-03 00:00 | temperature_metric | -17.78 | C | | | | | | + + + +---------+ | 2022-02-03 00:00 | temperature_metric | 36.61 | C | | | | | | + + + +---------+ | 2022-02-03 00:00 | | 0 | F | | | temperature_standar | | | | | d | | | + + + +---------+ | 2022-02-03 00:00 | | 97.9 | F | | | temperature_standar | | | | | d | | | + + + +---------+ | 2022-02-03 00:00 | weight_metric | 49 | kg | + + + +---------+ | 2022-02-03 00:00 | weight_metric | 52.16 | kg | + + + +---------+ | 2022-02-03 00:00 | weight_standard | 108.03 | lb | + + + +---------+ | 2022-02-03 00:00 | weight_standard | 114.99 | lb | + + + +---------+ | 2022-02-03 00:00 | weight_standard | 115 | lb | + + + +---------+ | 2022-02-04 00:00 | BMI | 18.5 | kg/m2 | + + + +---------+ | 2022-02-04 00:00 | BP_diastolic | 70 | mmHg | + + + +---------+ | 2022-02-04 00:00 | BP_systolic | 129 | mmHg | + + + +---------+ | 2022-02-04 00:00 | heart_rate | 78 | /min | + + + +---------+ | 2022-02-04 00:00 | height_metric | 162.56 | cm | + + + +---------+ | 2022-02-04 00:00 | height_standard | 64 | in | + + + +---------+ | 2022-02-04 00:00 | o2_saturation | 95 | % | + + + +---------+ | 2022-02-04 00:00 | respiration_rate | 16 | /min | + + + +---------+ | 2022-02-04 00:00 | temperature_metric | 36.78 | C | | | | | | + + + +---------+ | 2022-02-04 00:00 | | 98.2 | F | | | temperature_standar | | | | | d | | | + + + +---------+ | 2022-02-04 00:00 | weight_metric | 48.99 | kg | + + + +---------+ | 2022-02-04 00:00 | weight_standard | 108 | lb | + + + +---------+ | 2022-02-05 00:00 | BMI | 18.5 | kg/m2 | + + + +---------+ | 2022-02-05 00:00 | BP_diastolic | 77 | mmHg | + + + +---------+ | 2022-02-05 00:00 | BP_systolic | 136 | mmHg | + + + +---------+ | 2022-02-05 00:00 | heart_rate | 78 | /min | + + + +---------+ | 2022-02-05 00:00 | height_metric | 162.56 | cm | + + + +---------+ | 2022-02-05 00:00 | height_standard | 64 | in | + + + +---------+ | 2022-02-05 00:00 | o2_saturation | 98 | % | + + + +---------+ | 2022-02-05 00:00 | respiration_rate | 20 | /min | + + + +---------+ | 2022-02-05 00:00 | temperature_metric | 36.28 | C | | | | | | + + + +---------+ | 2022-02-05 00:00 | | 97.3 | F | | | temperature_standar | | | | | d | | | + + + +---------+ | 2022-02-05 00:00 | weight_metric | 48.99 | kg | + + + +---------+ | 2022-02-05 00:00 | weight_standard | 108 | lb | + + + +---------+ | 2022-02-10 00:00 | BMI | 18.5 | kg/m2 | + + + +---------+ | 2022-02-10 00:00 | BP_diastolic | 83 | mmHg | + + + +---------+ | 2022-02-10 00:00 | BP_systolic | 141 | mmHg | + + + +---------+ | 2022-02-10 00:00 | heart_rate | 76 | /min | + + + +---------+ | 2022-02-10 00:00 | height_metric | 162.56 | cm | + + + +---------+ | 2022-02-10 00:00 | height_standard | 64 | in | + + + +---------+ | 2022-02-10 00:00 | o2_saturation | 100 | % | + + + +---------+ | 2022-02-10 00:00 | respiration_rate | 18 | /min | + + + +---------+ | 2022-02-10 00:00 | temperature_metric | 36.39 | C | | | | | | + + + +---------+ | 2022-02-10 00:00 | | 97.5 | F | | | temperature_standar | | | | | d | | | + + + +---------+ | 2022-02-10 00:00 | weight_metric | 48.99 | kg | + + + +---------+ | 2022-02-10 00:00 | weight_standard | 108 | lb | + + + +---------+ | 2022-02-15 00:00 | BMI | 18.5 | kg/m2 | + + + +---------+ | 2022-02-15 00:00 | BP_diastolic | 99 | mmHg | + + + +---------+ | 2022-02-15 00:00 | BP_systolic | 185 | mmHg | + + + +---------+ | 2022-02-15 00:00 | heart_rate | 57 | /min | + + + +---------+ | 2022-02-15 00:00 | height_metric | 162.56 | cm | + + + +---------+ | 2022-02-15 00:00 | height_standard | 64 | in | + + + +---------+ | 2022-02-15 00:00 | o2_saturation | 99 | % | + + + +---------+ | 2022-02-15 00:00 | respiration_rate | 18 | /min | + + + +---------+ | 2022-02-15 00:00 | temperature_metric | 36.61 | C | | | | | | + + + +---------+ | 2022-02-15 00:00 | | 97.9 | F | | | temperature_standar | | | | | d | | | + + + +---------+ | 2022-02-15 00:00 | weight_metric | 48.99 | kg | + + + +---------+ | 2022-02-15 00:00 | weight_standard | 108 | lb | + + + +---------+ | 2022-03-07 00:00 | BMI | 18.5 | kg/m2 | + + + +---------+ | 2022-03-07 00:00 | BP_diastolic | 74 | mmHg | + + + +---------+ | 2022-03-07 00:00 | BP_systolic | 150 | mmHg | + + + +---------+ | 2022-03-07 00:00 | heart_rate | 95 | /min | + + + +---------+ | 2022-03-07 00:00 | height_metric | 162.56 | cm | + + + +---------+ | 2022-03-07 00:00 | height_standard | 64 | in | + + + +---------+ | 2022-03-07 00:00 | o2_saturation | 99 | % | + + + +---------+ | 2022-03-07 00:00 | respiration_rate | 16 | /min | + + + +---------+ | 2022-03-07 00:00 | temperature_metric | 36.67 | C | | | | | | + + + +---------+ | 2022-03-07 00:00 | | 98 | F | | | temperature_standar | | | | | d | | | + + + +---------+ | 2022-03-07 00:00 | weight_metric | 48.99 | kg | + + + +---------+ | 2022-03-07 00:00 | weight_standard | 108 | lb | + + + +---------+ | 2022-03-10 00:00 | BMI | 18.5 | kg/m2 | + + + +---------+ | 2022-03-10 00:00 | BP_diastolic | 100 | mmHg | + + + +---------+ | 2022-03-10 00:00 | BP_systolic | 172 | mmHg | + + + +---------+ | 2022-03-10 00:00 | heart_rate | 86 | /min | + + + +---------+ | 2022-03-10 00:00 | height_metric | 162.56 | cm | + + + +---------+ | 2022-03-10 00:00 | height_standard | 64 | in | + + + +---------+ | 2022-03-10 00:00 | o2_saturation | 98 | % | + + + +---------+ | 2022-03-10 00:00 | respiration_rate | 17 | /min | + + + +---------+ | 2022-03-10 00:00 | temperature_metric | 36.67 | C | | | | | | + + + +---------+ | 2022-03-10 00:00 | | 98 | F | | | temperature_standar | | | | | d | | | + + + +---------+ | 2022-03-10 00:00 | weight_metric | 48.99 | kg | + + + +---------+ | 2022-03-10 00:00 | weight_standard | 108 | lb | + + + +---------+ | 2022-03-14 00:00 | BMI | 18.5 | kg/m2 | + + + +---------+ | 2022-03-14 00:00 | BP_diastolic | 101 | mmHg | + + + +---------+ | 2022-03-14 00:00 | BP_systolic | 159 | mmHg | + + + +---------+ | 2022-03-14 00:00 | heart_rate | 68 | /min | + + + +---------+ | 2022-03-14 00:00 | height_metric | 162.56 | cm | + + + +---------+ | 2022-03-14 00:00 | height_standard | 64 | in | + + + +---------+ | 2022-03-14 00:00 | o2_saturation | 99 | % | + + + +---------+ | 2022-03-14 00:00 | respiration_rate | 17 | /min | + + + +---------+ | 2022-03-14 00:00 | temperature_metric | 37.17 | C | | | | | | + + + +---------+ | 2022-03-14 00:00 | | 98.9 | F | | | temperature_standar | | | | | d | | | + + + +---------+ | 2022-03-14 00:00 | weight_metric | 48.99 | kg | + + + +---------+ | 2022-03-14 00:00 | weight_standard | 108 | lb | + + + +---------+ | 2022-03-22 00:00 | BMI | 18.5 | kg/m2 | + + + +---------+ | 2022-03-22 00:00 | BP_diastolic | 74 | mmHg | + + + +---------+ | 2022-03-22 00:00 | BP_systolic | 141 | mmHg | + + + +---------+ | 2022-03-22 00:00 | heart_rate | 71 | /min | + + + +---------+ | 2022-03-22 00:00 | height_metric | 162.56 | cm | + + + +---------+ | 2022-03-22 00:00 | height_standard | 64 | in | + + + +---------+ | 2022-03-22 00:00 | o2_saturation | 99 | % | + + + +---------+ | 2022-03-22 00:00 | respiration_rate | 16 | /min | + + + +---------+ | 2022-03-22 00:00 | temperature_metric | 36.61 | C | | | | | | + + + +---------+ | 2022-03-22 00:00 | | 97.9 | F | | | temperature_standar | | | | | d | | | + + + +---------+ | 2022-03-22 00:00 | weight_metric | 48.99 | kg | + + + +---------+ | 2022-03-22 00:00 | weight_standard | 108 | lb | + + + +---------+ | 2022-10-13 00:00 | BMI | 20.2 | kg/m2 | + + + +---------+ | 2022-10-13 00:00 | BP_diastolic | 93 | mmHg | + + + +---------+ | 2022-10-13 00:00 | BP_systolic | 157 | mmHg | + + + +---------+ | 2022-10-13 00:00 | heart_rate | 68 | /min | + + + +---------+ | 2022-10-13 00:00 | height_metric | 162.56 | cm | + + + +---------+ | 2022-10-13 00:00 | height_standard | 64 | in | + + + +---------+ | 2022-10-13 00:00 | o2_saturation | 98 | % | + + + +---------+ | 2022-10-13 00:00 | respiration_rate | 18 | /min | + + + +---------+ | 2022-10-13 00:00 | temperature_metric | 36.72 | C | | | | | | + + + +---------+ | 2022-10-13 00:00 | | 98.1 | F | | | temperature_standar | | | | | d | | | + + + +---------+ | 2022-10-13 00:00 | weight_metric | 53.4 | kg | + + + +---------+ | 2022-10-13 00:00 | weight_standard | 117.73 | lb | + + + +---------+ | 2022-10-31 00:00 | BMI | 20.1 | kg/m2 | + + + +---------+ | 2022-10-31 00:00 | BP_diastolic | 00 | mmHg | + + + +---------+ | 2022-10-31 00:00 | BP_systolic | 00 | mmHg | + + + +---------+ | 2022-10-31 00:00 | heart_rate | 00 | /min | + + + +---------+ | 2022-10-31 00:00 | height_metric | 162.56 | cm | + + + +---------+ | 2022-10-31 00:00 | height_standard | 64 | in | + + + +---------+ | 2022-10-31 00:00 | o2_saturation | 00 | % | + + + +---------+ | 2022-10-31 00:00 | respiration_rate | 00 | /min | + + + +---------+ | 2022-10-31 00:00 | temperature_metric | -17.78 | C | | | | | | + + + +---------+ | 2022-10-31 00:00 | | 0 | F | | | temperature_standar | | | | | d | | | + + + +---------+ | 2022-10-31 00:00 | weight_metric | 53.07 | kg | + + + +---------+ | 2022-10-31 00:00 | weight_standard | 117 | lb | + + + +---------+ | 2022-11-22 00:00 | BMI | 20.1 | kg/m2 | + + + +---------+ | 2022-11-22 00:00 | BP_diastolic | 121 | mmHg | + + + +---------+ | 2022-11-22 00:00 | BP_systolic | 164 | mmHg | + + + +---------+ | 2022-11-22 00:00 | heart_rate | 80 | /min | + + + +---------+ | 2022-11-22 00:00 | height_metric | 162.56 | cm | + + + +---------+ | 2022-11-22 00:00 | height_standard | 64 | in | + + + +---------+ | 2022-11-22 00:00 | o2_saturation | 100 | % | + + + +---------+ | 2022-11-22 00:00 | respiration_rate | 18 | /min | + + + +---------+ | 2022-11-22 00:00 | temperature_metric | 37.06 | C | | | | | | + + + +---------+ | 2022-11-22 00:00 | | 98.7 | F | | | temperature_standar | | | | | d | | | + + + +---------+ | 2022-11-22 00:00 | weight_metric | 53.07 | kg | + + + +---------+ | 2022-11-22 00:00 | weight_standard | 117 | lb | + + + +---------+ | 2022-11-23 00:00 | BMI | 18.9 | kg/m2 | + + + +---------+ | 2022-11-23 00:00 | BP_diastolic | 87 | mmHg | + + + +---------+ | 2022-11-23 00:00 | BP_systolic | 160 | mmHg | + + + +---------+ | 2022-11-23 00:00 | heart_rate | 70 | /min | + + + +---------+ | 2022-11-23 00:00 | height_metric | 162.56 | cm | + + + +---------+ | 2022-11-23 00:00 | height_standard | 64 | in | + + + +---------+ | 2022-11-23 00:00 | o2_saturation | 99 | % | + + + +---------+ | 2022-11-23 00:00 | respiration_rate | 18 | /min | + + + +---------+ | 2022-11-23 00:00 | temperature_metric | 37 | C | | | | | | + + + +---------+ | 2022-11-23 00:00 | | 98.6 | F | | | temperature_standar | | | | | d | | | + + + +---------+ | 2022-11-23 00:00 | weight_metric | 49.9 | kg | + + + +---------+ | 2022-11-23 00:00 | weight_standard | 110.01 | lb | + + + +---------+ | 2022-12-16 00:00 | BMI | 19.7 | kg/m2 | + + + +---------+ | 2022-12-16 00:00 | BP_diastolic | 70 | mmHg | + + + +---------+ | 2022-12-16 00:00 | BP_systolic | 105 | mmHg | + + + +---------+ | 2022-12-16 00:00 | heart_rate | 67 | /min | + + + +---------+ | 2022-12-16 00:00 | height_metric | 162.56 | cm | + + + +---------+ | 2022-12-16 00:00 | height_standard | 64 | in | + + + +---------+ | 2022-12-16 00:00 | o2_saturation | 100 | % | + + + +---------+ | 2022-12-16 00:00 | respiration_rate | 18 | /min | + + + +---------+ | 2022-12-16 00:00 | temperature_metric | 36.83 | C | | | | | | + + + +---------+ | 2022-12-16 00:00 | | 98.3 | F | | | temperature_standar | | | | | d | | | + + + +---------+ | 2022-12-16 00:00 | weight_metric | 52 | kg | + + + +---------+ | 2022-12-16 00:00 | weight_standard | 114.64 | lb | + + + +---------+ | 2022-12-21 00:00 | BMI | 19.6 | kg/m2 | + + + +---------+ | 2022-12-21 00:00 | BP_diastolic | 81 | mmHg | + + + +---------+ | 2022-12-21 00:00 | BP_systolic | 128 | mmHg | + + + +---------+ | 2022-12-21 00:00 | heart_rate | 79 | /min | + + + +---------+ | 2022-12-21 00:00 | height_metric | 162.56 | cm | + + + +---------+ | 2022-12-21 00:00 | height_standard | 64 | in | + + + +---------+ | 2022-12-21 00:00 | o2_saturation | 97 | % | + + + +---------+ | 2022-12-21 00:00 | respiration_rate | 18 | /min | + + + +---------+ | 2022-12-21 00:00 | temperature_metric | 36.44 | C | | | | | | + + + +---------+ | 2022-12-21 00:00 | | 97.6 | F | | | temperature_standar | | | | | d | | | + + + +---------+ | 2022-12-21 00:00 | weight_metric | 51.71 | kg | + + + +---------+ | 2022-12-21 00:00 | weight_standard | 114 | lb | + + + +---------+ | 2023-01-01 00:00 | BMI | 19.8 | kg/m2 | + + + +---------+ | 2023-01-01 00:00 | BP_diastolic | 98 | mmHg | + + + +---------+ | 2023-01-01 00:00 | BP_systolic | 162 | mmHg | + + + +---------+ | 2023-01-01 00:00 | heart_rate | 63 | /min | + + + +---------+ | 2023-01-01 00:00 | height_metric | 162.56 | cm | + + + +---------+ | 2023-01-01 00:00 | height_standard | 64 | in | + + + +---------+ | 2023-01-01 00:00 | o2_saturation | 99 | % | + + + +---------+ | 2023-01-01 00:00 | respiration_rate | 18 | /min | + + + +---------+ | 2023-01-01 00:00 | temperature_metric | 36.72 | C | | | | | | + + + +---------+ | 2023-01-01 00:00 | | 98.1 | F | | | temperature_standar | | | | | d | | | + + + +---------+ | 2023-01-01 00:00 | weight_metric | 52.45 | kg | + + + +---------+ | 2023-01-01 00:00 | weight_standard | 115.63 | lb | + + + +---------+ | 2023-01-10 00:00 | BMI | 19.9 | kg/m2 | + + + +---------+ | 2023-01-10 00:00 | BP_diastolic | 102 | mmHg | + + + +---------+ | 2023-01-10 00:00 | BP_systolic | 173 | mmHg | + + + +---------+ | 2023-01-10 00:00 | heart_rate | 67 | /min | + + + +---------+ | 2023-01-10 00:00 | height_metric | 162.56 | cm | + + + +---------+ | 2023-01-10 00:00 | height_standard | 64 | in | + + + +---------+ | 2023-01-10 00:00 | o2_saturation | 100 | % | + + + +---------+ | 2023-01-10 00:00 | respiration_rate | 17 | /min | + + + +---------+ | 2023-01-10 00:00 | temperature_metric | 36.39 | C | | | | | | + + + +---------+ | 2023-01-10 00:00 | | 97.5 | F | | | temperature_standar | | | | | d | | | + + + +---------+ | 2023-01-10 00:00 | weight_metric | 52.62 | kg | + + + +---------+ | 2023-01-10 00:00 | weight_standard | 116 | lb | + + + +---------+ | 2023-01-27 00:00 | BMI | 19.9 | kg/m2 | + + + +---------+ | 2023-01-27 00:00 | BP_diastolic | 99 | mmHg | + + + +---------+ | 2023-01-27 00:00 | BP_systolic | 156 | mmHg | + + + +---------+ | 2023-01-27 00:00 | heart_rate | 90 | /min | + + + +---------+ | 2023-01-27 00:00 | height_metric | 162.56 | cm | + + + +---------+ | 2023-01-27 00:00 | height_standard | 64 | in | + + + +---------+ | 2023-01-27 00:00 | o2_saturation | 100 | % | + + + +---------+ | 2023-01-27 00:00 | respiration_rate | 18 | /min | + + + +---------+ | 2023-01-27 00:00 | temperature_metric | 37.06 | C | | | | | | + + + +---------+ | 2023-01-27 00:00 | | 98.7 | F | | | temperature_standar | | | | | d | | | + + + +---------+ | 2023-01-27 00:00 | weight_metric | 52.62 | kg | + + + +---------+ | 2023-01-27 00:00 | weight_standard | 116 | lb | + + + +---------+ | 2023-01-27 00:00 | weight_standard | 116.01 | lb | + + + +---------+ | 2023-01-29 00:00 | BMI | 20.0 | kg/m2 | + + + +---------+ | 2023-01-29 00:00 | BP_diastolic | 88 | mmHg | + + + +---------+ | 2023-01-29 00:00 | BP_systolic | 140 | mmHg | + + + +---------+ | 2023-01-29 00:00 | heart_rate | 85 | /min | + + + +---------+ | 2023-01-29 00:00 | height_metric | 162.56 | cm | + + + +---------+ | 2023-01-29 00:00 | height_standard | 64 | in | + + + +---------+ | 2023-01-29 00:00 | o2_saturation | 97 | % | + + + +---------+ | 2023-01-29 00:00 | respiration_rate | 20 | /min | + + + +---------+ | 2023-01-29 00:00 | temperature_metric | 36.61 | C | | | | | | + + + +---------+ | 2023-01-29 00:00 | | 97.9 | F | | | temperature_standar | | | | | d | | | + + + +---------+ | 2023-01-29 00:00 | weight_metric | 49.27 | kg | + + + +---------+ | 2023-01-29 00:00 | weight_metric | 52.9 | kg | + + + +---------+ | 2023-01-29 00:00 | weight_standard | 108.63 | lb | + + + +---------+ | 2023-01-29 00:00 | weight_standard | 116.62 | lb | + + + +---------+ | 2023-02-14 00:00 | BMI | 18.9 | kg/m2 | + + + +---------+ | 2023-02-14 00:00 | BP_diastolic | 89 | mmHg | + + + +---------+ | 2023-02-14 00:00 | BP_systolic | 143 | mmHg | + + + +---------+ | 2023-02-14 00:00 | heart_rate | 84 | /min | + + + +---------+ | 2023-02-14 00:00 | height_metric | 162.56 | cm | + + + +---------+ | 2023-02-14 00:00 | height_standard | 64 | in | + + + +---------+ | 2023-02-14 00:00 | o2_saturation | 97 | % | + + + +---------+ | 2023-02-14 00:00 | respiration_rate | 17 | /min | + + + +---------+ | 2023-02-14 00:00 | temperature_metric | 36.44 | C | | | | | | + + + +---------+ | 2023-02-14 00:00 | | 97.6 | F | | | temperature_standar | | | | | d | | | + + + +---------+ | 2023-02-14 00:00 | weight_metric | 49.9 | kg | + + + +---------+ | 2023-02-14 00:00 | weight_standard | 110 | lb | + + + +---------+ | 2023-02-14 00:00 | weight_standard | 110.01 | lb | + + + +---------+ | 2023-02-15 00:00 | BMI | 18.5 | kg/m2 | + + + +---------+ | 2023-02-15 00:00 | BP_diastolic | 95 | mmHg | + + + +---------+ | 2023-02-15 00:00 | BP_systolic | 147 | mmHg | + + + +---------+ | 2023-02-15 00:00 | heart_rate | 81 | /min | + + + +---------+ | 2023-02-15 00:00 | height_metric | 162.56 | cm | + + + +---------+ | 2023-02-15 00:00 | height_standard | 64 | in | + + + +---------+ | 2023-02-15 00:00 | o2_saturation | 99 | % | + + + +---------+ | 2023-02-15 00:00 | respiration_rate | 14 | /min | + + + +---------+ | 2023-02-15 00:00 | temperature_metric | 36.44 | C | | | | | | + + + +---------+ | 2023-02-15 00:00 | | 97.6 | F | | | temperature_standar | | | | | d | | | + + + +---------+ | 2023-02-15 00:00 | weight_metric | 48.9 | kg | + + + +---------+ | 2023-02-15 00:00 | weight_standard | 107.81 | lb | + + + +---------+"
--- OUTSIDE RECORDS SUMMARY | ~2023-02-16 | XMS | Continuity of Care Document ---
Demographics + + + | Address | [address] | | | [place] [address] | + + + | Preferred Language | Unknown | + + + | Marital Status | Never | + + + | Moravian Affiliation | Unknown | + + + | Race | White | + + + | Ethnic Group | Not or | + + + Author + + + | Author | [facility] | + + + | Organization | [facility] | + + + | Address | [address] | | | [place] [address] | + + + | Phone | | + + + Care Team Providers + + + + | Care Infrastructure Architect Name | Role | Phone | + [...] + + | 2017-09-28 00:00 | | [facility] | | | Guaifenesin/Dextromethorpha | | | | n | | + + + + | 2017-09-28 00:00 | | [facility] | | | Guaifenesin/Dextromethorpha | | | | n | | + + + + | 2017-09-28 00:00 | | [facility] | | | Guaifenesin/Dextromethorpha | | | | n | | + + + + | 2017-09-28 00:00 | | [facility] | | | Guaifenesin/Dextromethorpha | | | | n | | + + + + | 2017-09-28 00:00 | | [facility] | | | Guaifenesin/Dextromethorpha | | | | n | | + + + + | 2017-09-28 00:00 | | [facility] | | | Guaifenesin/Dextromethorpha | | | | n | | + + + + | 2017-09-28 00:00 | | [facility] | | | Guaifenesin/Dextromethorpha | | | | n | | + + + + | 2017-09-28 00:00 | | [facility] | | | Guaifenesin/Dextromethorpha | | | | n | | + + + + | 2017-09-28 00:00 | | [facility] | | | Guaifenesin/Dextromethorpha | | | | n | | + + + + | 2021-04-03 00:00 | ONDANSETRON HCL | [facility] | + + + + | 2021-04-03 00:00 | ONDANSETRON HCL | [facility] | + + + + | 2021-04-03 00:00 | ONDANSETRON HCL | [facility] | + + + + | 2021-04-03 00:00 | ONDANSETRON HCL | [facility] | + + + + | 2021-04-03 00:00 | ONDANSETRON HCL | [facility] | + + + + | 2021-04-03 00:00 | ONDANSETRON HCL | [facility] | + + + + | 2021-04-03 00:00 | ONDANSETRON HCL | [facility] | + + + + | 2021-04-03 00:00 | ONDANSETRON HCL | [facility] | + + + + | 2021-04-03 00:00 | ONDANSETRON HCL | [facility] | + + + + | 2021-02-08 00:00 | TRIAMCINOLONE ACETONIDE | [facility] | + + + + | 2021-02-08 00:00 | TRIAMCINOLONE ACETONIDE | [facility] | + + + + | 2021-02-08 00:00 | TRIAMCINOLONE ACETONIDE | [facility] | + + + + | 2021-02-08 00:00 | TRIAMCINOLONE ACETONIDE | [facility] | + + + + | 2021-02-08 00:00 | TRIAMCINOLONE ACETONIDE | [facility] | + + + + | 2021-02-08 00:00 | TRIAMCINOLONE ACETONIDE | [facility] | + + + + | 2021-02-08 00:00 | TRIAMCINOLONE ACETONIDE | [facility] | + + + + | 2021-02-08 00:00 | TRIAMCINOLONE ACETONIDE | [facility] | + + + + | 2021-02-08 00:00 | TRIAMCINOLONE ACETONIDE | [facility] | + + + + | 2023-01-29 00:00 | UREA | [facility] | + + + + | 2023-01-29 00:00 | UREA | [facility] | + + + + | 2021-08-27 00:00 | OLANZAPINE | [facility] | + + + + | 2021-08-27 00:00 | OLANZAPINE | [facility] | + + + + | 2021-08-27 00:00 | OLANZAPINE | [facility] | + + + + | 2021-08-27 00:00 | OLANZAPINE | [facility] | + + + + | 2021-08-27 00:00 | OLANZAPINE | [facility] | + + + + | 2021-08-27 00:00 | OLANZAPINE | [facility] | + + + + | 2021-08-27 00:00 | OLANZAPINE | [facility] | + + + + | 2021-08-27 00:00 | OLANZAPINE | [facility] | + + + + | 2021-08-27 00:00 | OLANZAPINE | [facility] | + + + + | 2021-09-01 00:00 | OLANZAPINE | [facility] | + + + + | 2021-09-01 00:00 | OLANZAPINE | [facility] | + + + + | 2021-09-01 00:00 | OLANZAPINE | [facility] | + + + + | 2021-09-01 00:00 | OLANZAPINE | [facility] | + + + + | 2021-09-01 00:00 | OLANZAPINE | [facility] | + + + + | 2021-09-01 00:00 | OLANZAPINE | [facility] | + + + + | 2021-09-01 00:00 | OLANZAPINE | [facility] | + + + + | 2021-09-01 00:00 | OLANZAPINE | [facility] | + + + + | 2021-09-01 00:00 | OLANZAPINE | [facility] | + + + + | 2022-10-13 00:00 | DOXYCYCLINE HYCLATE | [facility] | + + + + | 2022-01-31 00:00 | AMLODIPINE BESYLATE | [facility] | + + + + | 2022-01-31 00:00 | AMLODIPINE BESYLATE | [facility] | + + + + | 2022-01-31 00:00 | AMLODIPINE BESYLATE | [facility] | + + + + | 2022-01-23 00:00 | CEPHALEXIN | [facility] | + + + + | 2022-01-23 00:00 | CEPHALEXIN | [facility] | + + + + | 2022-01-23 00:00 | CEPHALEXIN | [facility] | + + + + | 2022-01-23 00:00 | CEPHALEXIN | [facility] | + + + + | 2022-01-23 00:00 | CEPHALEXIN | [facility] | + + + + | 2022-01-23 00:00 | CEPHALEXIN | [facility] | + + + + | 2022-01-23 00:00 | CEPHALEXIN | [facility] | + + + + | 2022-01-23 00:00 | CEPHALEXIN | [facility] | + + + + | 2022-01-23 00:00 | CEPHALEXIN | [facility] | + + + + | 2022-03-10 00:00 | CEPHALEXIN | [facility] | + + + + | 2022-03-10 00:00 | CEPHALEXIN | [facility] | + + + + | 2017-09-07 00:00 | IBUPROFEN | [facility] | + + + + | 2017-09-07 00:00 | IBUPROFEN | [facility] | + + + + | 2017-09-07 00:00 | IBUPROFEN | [facility] | + + + + | 2017-09-07 00:00 | IBUPROFEN | [facility] | + + + + | 2017-09-07 00:00 | IBUPROFEN | [facility] | + + + + | 2017-09-07 00:00 | IBUPROFEN | [facility] | + + + + | 2017-09-07 00:00 | IBUPROFEN | [facility] | + + + + | 2017-09-07 00:00 | IBUPROFEN | [facility] | + + + + | 2017-09-07 00:00 | IBUPROFEN | [facility] | + + + + | 2023-01-01 00:00 | PERMETHRIN | [facility] | + + + + | 2023-01-01 00:00 | PERMETHRIN | [facility] | + + + + | 2023-01-01 00:00 | PERMETHRIN | [facility] | + + + + | 2023-01-01 00:00 | PERMETHRIN | [facility] | + + + + | 2023-01-01 00:00 | PERMETHRIN | [facility] | + + + + | 2019-01-27 00:00 | CEPHALEXIN | [facility] | + + + + | 2019-01-27 00:00 | CEPHALEXIN | [facility] | + + + + | 2019-01-27 00:00 | CEPHALEXIN | [facility] | + + + + | 2019-01-27 00:00 | CEPHALEXIN | [facility] | + + + + | 2019-01-27 00:00 | CEPHALEXIN | [facility] | + + + + | 2019-01-27 00:00 | CEPHALEXIN | [facility] | + + + + | 2019-01-27 00:00 | CEPHALEXIN | [facility] | + + + + | 2019-01-27 00:00 | CEPHALEXIN | [facility] | + + + + | 2019-01-27 00:00 | CEPHALEXIN | [facility] | + + + + | 2017-08-07 00:00 | AZITHROMYCIN | [facility] | + + + + | 2017-08-07 00:00 | AZITHROMYCIN | [facility] | + + + + | 2017-08-07 00:00 | AZITHROMYCIN | [facility] | + + + + | 2017-08-07 00:00 | AZITHROMYCIN | [facility] | + + + + | 2017-08-07 00:00 | AZITHROMYCIN | [facility] | + + + + | 2017-08-07 00:00 | AZITHROMYCIN | [facility] | + + + + | 2017-08-07 00:00 | AZITHROMYCIN | [facility] | + + + + | 2017-08-07 00:00 | AZITHROMYCIN | [facility] | + + + + | 2017-08-07 00:00 | AZITHROMYCIN | [facility] | + + + + | 2022-03-14 00:00 | BETAMETHASONE DIPROPIONATE | [facility] | | | | | + + + + | 2016-11-17 00:00 | CEPHALEXIN | [facility] | + + + + | 2016-11-17 00:00 | CEPHALEXIN | [facility] | + + + + | 2016-11-17 00:00 | CEPHALEXIN | [facility] | + + + + | 2016-11-17 00:00 | CEPHALEXIN | [facility] | + + + + | 2016-11-17 00:00 | CEPHALEXIN | [facility] | + + + + | 2016-11-17 00:00 | CEPHALEXIN | [facility] | + + + + | 2016-11-17 00:00 | CEPHALEXIN | [facility] | + + + + | 2016-11-17 00:00 | CEPHALEXIN | [facility] | + + + + | 2016-11-17 00:00 | CEPHALEXIN | [facility] | + + + + | 2016-11-20 00:00 | CEPHALEXIN | [facility] | + + + + | 2016-11-20 00:00 | CEPHALEXIN | [facility] | + + + + | 2016-11-20 00:00 | CEPHALEXIN | [facility] | + + + + | 2016-11-20 00:00 | CEPHALEXIN | [facility] | + + + + | 2016-11-20 00:00 | CEPHALEXIN | [facility] | + + + + | 2016-11-20 00:00 | CEPHALEXIN | [facility] | + + + + | 2016-11-20 00:00 | CEPHALEXIN | [facility] | + + + + | 2016-11-20 00:00 | CEPHALEXIN | [facility] | + + + + | 2016-11-20 00:00 | CEPHALEXIN | [facility] | + + + + | 2022-02-03 00:00 | CEPHALEXIN | [facility] | + + + + | 2022-02-05 00:00 | CEPHALEXIN | [facility] | + + + + | 2022-02-06 00:00 | CEPHALEXIN | [facility] | + + + + | 2022-02-06 00:00 | CEPHALEXIN | [facility] | + + + + | 2022-02-07 00:00 | CEPHALEXIN | [facility] | + + + + | 2022-02-10 00:00 | CEPHALEXIN | [facility] | + + + + | 2022-02-16 00:00 | CEPHALEXIN | [facility] | + + + + | 2022-03-14 00:00 | CEPHALEXIN | [facility] | + + + + | 2022-03-19 00:00 | CEPHALEXIN | [facility] | + + + + | 2022-03-22 00:00 | CEPHALEXIN | [facility] | + + + + | 2022-10-13 00:00 | CEPHALEXIN | [facility] | + + + + | 2022-10-31 00:00 | CEPHALEXIN | [facility] | + + + + | 2022-11-21 00:00 | CEPHALEXIN | [facility] | + + + + | 2022-11-22 00:00 | CEPHALEXIN | [facility] | + + + + | 2022-11-23 00:00 | CEPHALEXIN | [facility] | + + + + | 2022-12-16 00:00 | CEPHALEXIN | [facility] | + + + + | 2022-12-21 00:00 | CEPHALEXIN | [facility] | + + + + | 2023-01-01 00:00 | CEPHALEXIN | [facility] | + + + + | 2023-01-10 00:00 | CEPHALEXIN | [facility] | + + + + | 2023-01-27 00:00 | CEPHALEXIN | [facility] | + + + + | 2023-01-29 00:00 | CEPHALEXIN | [facility] | + + + + | 2023-02-14 00:00 | CEPHALEXIN | [facility] | + + + + | 2023-02-15 00:00 | CEPHALEXIN | [facility] | + + + + | 2020-07-15 00:00 | Erythromycin Base | [facility] | + + + + | 2020-07-15 00:00 | Erythromycin Base | [facility] | + + + + | 2020-07-15 00:00 | Erythromycin Base | [facility] | + + + + 2020-07-15 00:00 | Erythromycin Base | [facility] | + + + + | 2020-07-15 00:00 | Erythromycin Base | [facility] | + + + + | 2020-07-15 00:00 | Erythromycin Base | [facility] | + + + + | 2020-07-15 00:00 | Erythromycin Base | [facility] | + + + + | 2020-07-15 00:00 | Erythromycin Base | [facility] | + + + + | 2020-07-15 00:00 | Erythromycin Base | [facility] | + + + + | 2022-10-13 00:00 | ONDANSETRON | [facility] | + + + + | 2022-02-03 00:00 | Oseltamivir Phosphate | [facility] | + + + + | 2022-02-05 00:00 | Oseltamivir Phosphate | [facility] | + + + + | 2022-02-06 00:00 | Oseltamivir Phosphate | [facility] | + + + + | 2022-02-06 00:00 | Oseltamivir Phosphate | [facility] | + + + + | 2022-02-07 00:00 | Oseltamivir Phosphate | [facility] | + + + + | 2022-02-10 00:00 | Oseltamivir Phosphate | [facility] | + + + + | 2022-02-16 00:00 | Oseltamivir Phosphate | [facility] | + + + + | 2022-03-14 00:00 | Oseltamivir Phosphate | [facility] | + + + + | 2022-03-19 00:00 | Oseltamivir Phosphate | [facility] | + + + + | 2022-03-22 00:00 | Oseltamivir Phosphate | [facility] | + + + + | 2022-10-13 00:00 | Oseltamivir Phosphate | [facility] | + + + + | 2022-10-31 00:00 | Oseltamivir Phosphate | [facility] | + + + + | 2022-11-21 00:00 | Oseltamivir Phosphate | [facility] | + + + + | 2022-11-22 00:00 | Oseltamivir Phosphate | [facility] | + + + + | 2022-11-23 00:00 | Oseltamivir Phosphate | [facility] | + + + + | 2022-12-16 00:00 | Oseltamivir Phosphate | [facility] | + + + + | 2022-12-21 00:00 | Oseltamivir Phosphate | [facility] | + + + + | 2023-01-01 00:00 | Oseltamivir Phosphate | [facility] | + + + + | 2023-01-10 00:00 | Oseltamivir Phosphate | [facility] | + + + + | 2023-01-27 00:00 | Oseltamivir Phosphate | [facility] | + + + + | 2023-01-29 00:00 | Oseltamivir Phosphate | [facility] | + + + + | 2023-02-14 00:00 | Oseltamivir Phosphate | [facility] | + + + + | 2023-02-15 00:00 | Oseltamivir Phosphate | [facility] | + + + + | 2022-02-03 00:00 | PIMOZIDE | [facility] | + + + + | 2022-02-05 00:00 | PIMOZIDE | [facility] | + + + + | 2022-02-06 00:00 | PIMOZIDE | [facility] | + + + + | 2022-02-06 00:00 | PIMOZIDE | [facility] | + + + + | 2022-02-07 00:00 | PIMOZIDE | [facility] | + + + + | 2022-02-10 00:00 | PIMOZIDE | [facility] | + + + + | 2022-02-16 00:00 | PIMOZIDE | [facility] | + + + + | 2022-03-14 00:00 | PIMOZIDE | [facility] | + + + + | 2022-03-19 00:00 | PIMOZIDE | [facility] | + + + + | 2022-03-22 00:00 | PIMOZIDE | [facility] | + + + + | 2022-10-13 00:00 | PIMOZIDE | [facility] | + + + + | 2022-10-31 00:00 | PIMOZIDE | [facility] | + + + + | 2022-11-21 00:00 | PIMOZIDE | [facility] | + + + + | 2022-11-22 00:00 | PIMOZIDE | [facility] | + + + + | 2022-11-23 00:00 | PIMOZIDE | [facility] | + + + + | 2022-12-16 00:00 | PIMOZIDE | [facility] | + + + + | 2022-12-21 00:00 | PIMOZIDE | [facility] | + + + + | 2023-01-01 00:00 | PIMOZIDE | [facility] | + + + + | 2023-01-10 00:00 | PIMOZIDE | [facility] | + + + + | 2023-01-27 00:00 | PIMOZIDE | [facility] | + + + + | 2023-01-29 00:00 | PIMOZIDE | [facility] | + + + + | 2023-02-14 00:00 | PIMOZIDE | [facility] | + + + + | 2023-02-15 00:00 | PIMOZIDE | [facility] | + + + + | 2017-06-18 00:00 | predniSONE | [facility] | + + + + | 2017-06-18 00:00 | predniSONE | [facility] | + + + + | 2017-06-18 00:00 | predniSONE | [facility] | + + + + | 2017-06-18 00:00 | predniSONE | [facility] | + + + + | 2017-06-18 00:00 | predniSONE | [facility] | + + + + | 2017-06-18 00:00 | predniSONE | [facility] | + + + + | 2017-06-18 00:00 | predniSONE | [facility] | + + + + | 2017-06-18 00:00 | predniSONE | [facility] | + + + + | 2017-06-18 00:00 | predniSONE | [facility] | + + + + | 2020-01-23 00:00 | predniSONE | [facility] | + + + + | 2020-01-23 00:00 | predniSONE | [facility] | + + + + | 2020-01-23 00:00 | predniSONE | [facility] | + + + + | 2020-01-23 00:00 | predniSONE | [facility] | + + + + | 2020-01-23 00:00 | predniSONE | [facility] | + + + + | 2020-01-23 00:00 | predniSONE | [facility] | + + + + 2020-01-23 00:00 | predniSONE | [facility] | + + + + | 2020-01-23 00:00 | predniSONE | [facility] | + + + + | 2020-01-23 00:00 | predniSONE | [facility] | + + + + | 2022-03-22 00:00 | predniSONE | [facility] | + + + + | 2016-05-14 00:00 | HALOPERIDOL | [facility] | + + + + | 2016-05-14 00:00 | HALOPERIDOL | [facility] | + + + + | 2016-05-14 00:00 | HALOPERIDOL | [facility] | + + + + | 2016-05-14 00:00 | HALOPERIDOL | [facility] | + + + + | 2016-05-14 00:00 | HALOPERIDOL | [facility] | + + + + | 2016-05-14 00:00 | HALOPERIDOL | [facility] | + + + + | 2016-05-14 00:00 | HALOPERIDOL | [facility] | + + + + | 2016-05-14 00:00 | HALOPERIDOL | [facility] | + + + + | 2016-05-14 00:00 | HALOPERIDOL | [facility] | + + + + | 2018-02-21 00:00 | HALOPERIDOL | [facility] | + + + + | 2018-02-21 00:00 | HALOPERIDOL | [facility] | + + + + | 2018-02-21 00:00 | HALOPERIDOL | [facility] | + + + + | 2018-02-21 00:00 | HALOPERIDOL | [facility] | + + + + | 2018-02-21 00:00 | HALOPERIDOL | [facility] | + + + + | 2018-02-21 00:00 | HALOPERIDOL | [facility] | + + + + | 2018-02-21 00:00 | HALOPERIDOL | [facility] | + + + + | 2018-02-21 00:00 | HALOPERIDOL | [facility] | + + + + | 2018-02-21 00:00 | HALOPERIDOL | [facility] | + + + + | 2022-02-03 00:00 | HALOPERIDOL | [facility] | + + + + | 2022-02-05 00:00 | HALOPERIDOL | [facility] | + + + + | 2022-02-06 00:00 | HALOPERIDOL | [facility] | + + + + | 2022-02-06 00:00 | HALOPERIDOL | [facility] | + + + + | 2022-02-07 00:00 | HALOPERIDOL | [facility] | + + + + | 2022-02-10 00:00 | HALOPERIDOL | [facility] | + + + + | 2022-02-16 00:00 | HALOPERIDOL | [facility] | + + + + | 2022-03-14 00:00 | HALOPERIDOL | [facility] | + + + + | 2022-03-19 00:00 | HALOPERIDOL | [facility] | + + + + | 2022-03-22 00:00 | HALOPERIDOL | [facility] | + + + + | 2022-10-13 00:00 | HALOPERIDOL | [facility] | + + + + | 2022-10-31 00:00 | HALOPERIDOL | [facility] | + + + + | 2022-11-21 00:00 | HALOPERIDOL | [facility] | + + + + | 2022-11-22 00:00 | HALOPERIDOL | [facility] | + + + + | 2022-11-23 00:00 | HALOPERIDOL | [facility] | + + + + | 2022-12-16 00:00 | HALOPERIDOL | [facility] | + + + + | 2022-12-21 00:00 | HALOPERIDOL | [facility] | + + + + | 2023-01-01 00:00 | HALOPERIDOL | [facility] | + + + + | 2023-01-10 00:00 | HALOPERIDOL | [facility] | + + + + | 2023-01-27 00:00 | HALOPERIDOL | [facility] | + + + + | 2023-01-29 00:00 | HALOPERIDOL | [facility] | + + + + | 2023-02-14 00:00 | HALOPERIDOL | [facility] | + + + + | 2023-02-15 00:00 | HALOPERIDOL | [facility] | + + + + | 2021-07-02 00:00 | LISINOPRIL | [facility] | + + + + | 2021-07-02 00:00 | LISINOPRIL | [facility] | + + + + | 2021-07-02 00:00 | LISINOPRIL | [facility] | + + + + | 2021-07-02 00:00 | LISINOPRIL | [facility] | + + + + | 2021-07-02 00:00 | LISINOPRIL | [facility] | + + + + | 2021-07-02 00:00 | LISINOPRIL | [facility] | + + + + | 2021-07-02 00:00 | LISINOPRIL | [facility] | + + + + | 2021-07-02 00:00 | LISINOPRIL | [facility] | + + + + | 2021-07-02 00:00 | LISINOPRIL | [facility] | + + + + | 2023-01-01 00:00 | LISINOPRIL | [facility] | + + + + | 2023-01-01 00:00 | LISINOPRIL | [facility] | + + + + | 2023-01-01 00:00 | LISINOPRIL | [facility] | + + + + | 2023-01-01 00:00 | LISINOPRIL | [facility] | + + + + | 2023-01-01 00:00 | LISINOPRIL | [facility] | + + + + | 2023-01-10 00:00 | LISINOPRIL | [facility] | + + + + | 2023-01-27 00:00 | LISINOPRIL | [facility] | + + + + | 2023-01-29 00:00 | LISINOPRIL | [facility] | + + + + | 2023-02-14 00:00 | LISINOPRIL | [facility] | + + + + | 2023-02-15 00:00 | LISINOPRIL | [facility] | + + + + | 2023-01-01 00:00 | HYDROCHLOROTHIAZIDE | [facility] | + + + + | 2023-01-01 00:00 | HYDROCHLOROTHIAZIDE | [facility] | + + + + | 2023-01-01 00:00 | HYDROCHLOROTHIAZIDE | [facility] | + + + + | 2023-01-01 00:00 | HYDROCHLOROTHIAZIDE | [facility] | + + + + | 2023-01-01 00:00 | HYDROCHLOROTHIAZIDE | [facility] | + + + + | 2023-01-10 00:00 | HYDROCHLOROTHIAZIDE | [facility] | + + + + | 2023-01-27 00:00 | HYDROCHLOROTHIAZIDE | [facility] | + + + + | 2023-01-29 00:00 | HYDROCHLOROTHIAZIDE | [facility] | + + + + | 2023-02-14 00:00 | HYDROCHLOROTHIAZIDE | [facility] | + + + + | 2023-02-15 00:00 | HYDROCHLOROTHIAZIDE | [facility] | + + + + | 2022-11-22 00:00 | AMOXICILLIN/POTASSIUM CLAV | [facility] | | | | | + + + + | 2022-11-22 00:00 | AMOXICILLIN/POTASSIUM CLAV | [facility] | | | | | + + + + | 2017-09-28 00:00 | ALBUTEROL SULFATE | [facility] | + + + + | 2017-09-28 00:00 | ALBUTEROL SULFATE | [facility] | + + + + | 2017-09-28 00:00 | ALBUTEROL SULFATE | [facility] | + + + + | 2017-09-28 00:00 | ALBUTEROL SULFATE | [facility] | + + + + | 2017-09-28 00:00 | ALBUTEROL SULFATE | [facility] | + + + + | 2017-09-28 00:00 | ALBUTEROL SULFATE | [facility] | + + + + | 2017-09-28 00:00 | ALBUTEROL SULFATE | [facility] | + + + + | 2017-09-28 00:00 | ALBUTEROL SULFATE | [facility] | + + + + | 2017-09-28 00:00 | ALBUTEROL SULFATE | [facility] | + + + + | 2017-09-07 00:00 | CLINDAMYCIN HCL | [facility] | + + + + | 2017-09-07 00:00 | CLINDAMYCIN HCL | [facility] | + + + + | 2017-09-07 00:00 | CLINDAMYCIN HCL | [facility] | + + + + | 2017-09-07 00:00 | CLINDAMYCIN HCL | [facility] | + + + + | 2017-09-07 00:00 | CLINDAMYCIN HCL | [facility] | + + + + | 2017-09-07 00:00 | [facility]AMY[facility]IN [facility] | [place] [facility] | + + + + | 2017-09-07 00:00 | CLINDAMYCIN HCL | [facility] | + + + + | 2017-09-07 00:00 | CLINDAMYCIN HCL | [facility] | + + + + | 2017-09-07 00:00 | CLINDAMYCIN HCL | [facility] | + + + + | 2020-06-16 00:00 | CLINDAMYCIN HCL | [facility] | + + + + | 2020-06-16 00:00 | CLINDAMYCIN HCL | [facility] | + + + + | 2020-06-16 00:00 | CLINDAMYCIN HCL | [facility] | + + + + | 2020-06-16 00:00 | CLINDAMYCIN HCL | [facility] | + + + + | 2020-06-16 00:00 | CLINDAMYCIN HCL | [facility] | + + + + 2020-06-16 00:00 | CLINDAMYCIN HCL | [facility] | + + + + | 2020-06-16 00:00 | CLINDAMYCIN HCL | [facility] | + + + + | 2020-06-16 00:00 | CLINDAMYCIN HCL | [facility] | + + + + | 2020-06-16 00:00 | CLINDAMYCIN HCL | [facility] | + + + + | 2020-07-12 00:00 | CLINDAMYCIN HCL | [facility] | + + + + | 2020-07-12 00:00 | CLINDAMYCIN HCL | [facility] | + + + + | 2020-07-12 00:00 | CLINDAMYCIN HCL | [facility] | + + + + | 2020-07-12 00:00 | CLINDAMYCIN HCL | [facility] | + + + + | 2020-07-12 00:00 | CLINDAMYCIN HCL | [facility] | + + + + | 2020-07-12 00:00 | CLINDAMYCIN HCL | [facility] | + + + + | 2020-07-12 00:00 | CLINDAMYCIN HCL | [facility] | + + + + | 2020-07-12 00:00 | CLINDAMYCIN HCL | [facility] | + + + + | 2020-07-12 00:00 | CLINDAMYCIN HCL | [facility] | + + + + | 2022-11-23 00:00 | CLINDAMYCIN HCL | [facility] | + + + + | 2022-11-23 00:00 | CLINDAMYCIN HCL | [facility] | + + + + | 2017-08-07 00:00 | METHYLPREDNISOLONE | [facility] | + + + + | 2017-08-07 00:00 | METHYLPREDNISOLONE | [facility] | + + + + | 2017-08-07 00:00 | METHYLPREDNISOLONE | [facility] | + + + + | 2017-08-07 00:00 | METHYLPREDNISOLONE | [facility] | + + + + | 2017-08-07 00:00 | METHYLPREDNISOLONE | [facility] | + + + + | 2017-08-07 00:00 | METHYLPREDNISOLONE | [facility] | + + + + | 2017-08-07 00:00 | METHYLPREDNISOLONE | [facility] | + + + + | 2017-08-07 00:00 | METHYLPREDNISOLONE | [facility] | + + + + | 2017-08-07 00:00 | METHYLPREDNISOLONE | [facility] | + + + + | 2021-08-27 00:00 | Chlorhexidine Gluconate | [facility] | + + + + | 2021-08-27 00:00 | Chlorhexidine Gluconate | [facility] | + + + + | 2021-08-27 00:00 | Chlorhexidine Gluconate | [facility] | + + + + | 2021-08-27 00:00 | Chlorhexidine Gluconate | [facility] | + + + + | 2021-08-27 00:00 | Chlorhexidine Gluconate | [facility] | + + + + | 2021-08-27 00:00 | Chlorhexidine Gluconate | [facility] | + + + + | 2021-08-27 00:00 | Chlorhexidine Gluconate | [facility] | + + + + | 2021-08-27 00:00 | Chlorhexidine Gluconate | [facility] | + + + + | 2021-08-27 00:00 | Chlorhexidine Gluconate | [facility] | + + + + | 2014-02-25 00:00 | | [facility] | | | SULFAMETHOXAZOLE/TRIMETHOPR | | | | IM DS | | + + + + | 2014-02-25 00:00 | | [facility] | | | SULFAMETHOXAZOLE/TRIMETHOPR | | | | IM DS | | + + + + | 2014-02-25 00:00 | | [facility] | | | SULFAMETHOXAZOLE/TRIMETHOPR | | | | IM DS | | + + + + | 2014-02-25 00:00 | | [facility] | | | SULFAMETHOXAZOLE/TRIMETHOPR | | | | IM DS | | + + + + | 2014-02-25 00:00 | | [facility] | | | SULFAMETHOXAZOLE/TRIMETHOPR | | | | IM DS | | + + + + | 2014-02-25 00:00 | | [facility] | | | SULFAMETHOXAZOLE/TRIMETHOPR | | | | IM DS | | + + + + | 2014-02-25 00:00 | | [facility] | | | SULFAMETHOXAZOLE/TRIMETHOPR | | | | IM DS | | + + + + | 2014-02-25 00:00 | | [facility] | | | SULFAMETHOXAZOLE/TRIMETHOPR | | | | IM DS | | + + + + | 2014-02-25 00:00 | | [facility] | | | SULFAMETHOXAZOLE/TRIMETHOPR | | | | IM DS | | + + + + | 2017-10-08 00:00 | | [facility] | | | SULFAMETHOXAZOLE/TRIMETHOPR | | | | IM DS | | + + + + | 2017-10-08 00:00 | | [facility] | | | SULFAMETHOXAZOLE/TRIMETHOPR | | | | IM DS | | + + + + | 2017-10-08 00:00 | | [facility] | | | SULFAMETHOXAZOLE/TRIMETHOPR | | | | IM DS | | + + + + | 2017-10-08 00:00 | | [facility] | | | SULFAMETHOXAZOLE/TRIMETHOPR | | | | IM DS | | + + + + | 2017-10-08 00:00 | | [facility] | | | SULFAMETHOXAZOLE/TRIMETHOPR | | | | IM DS | | + + + + | 2017-10-08 00:00 | | [facility] | | | SULFAMETHOXAZOLE/TRIMETHOPR | | | | IM DS | | + + + + | 2017-10-08 00:00 | | [facility] | | | SULFAMETHOXAZOLE/TRIMETHOPR | | | | IM DS | | + + + + | 2017-10-08 00:00 | | [facility] | | | SULFAMETHOXAZOLE/TRIMETHOPR | | | | IM DS | | + + + + | 2017-10-08 00:00 | | [facility] | | | SULFAMETHOXAZOLE/TRIMETHOPR | | | | IM DS | | + + + + | 2022-01-31 00:00 | | [facility] | | | SULFAMETHOXAZOLE/TRIMETHOPR | | | | IM DS | | + + + + | 2017-06-18 00:00 | ALBUTEROL SULFATE | [facility] | + + + + | 2017-06-18 00:00 | ALBUTEROL SULFATE | [facility] | + + + + | 2017-06-18 00:00 | ALBUTEROL SULFATE | [facility] | + + + + | 2017-06-18 00:00 | ALBUTEROL SULFATE | [facility] | + + + + | 2017-06-18 00:00 | ALBUTEROL SULFATE | [facility] | + + + + | 2017-06-18 00:00 | ALBUTEROL SULFATE | [facility] | + + + + | 2017-06-18 00:00 | ALBUTEROL SULFATE | [facility] | + + + + | 2017-06-18 00:00 | ALBUTEROL SULFATE | [facility] | + + + + | 2017-06-18 00:00 | ALBUTEROL SULFATE | [facility] | + + + + | 2017-08-07 00:00 | ALBUTEROL SULFATE | [facility] | + + + + | 2017-08-07 00:00 | ALBUTEROL SULFATE | [facility] | + + + + | 2017-08-07 00:00 | ALBUTEROL SULFATE | [facility] | + + + + | 2017-08-07 00:00 | ALBUTEROL SULFATE | [facility] | + + + + | 2017-08-07 00:00 | ALBUTEROL SULFATE | [facility] | + + + + | 2017-08-07 00:00 | ALBUTEROL SULFATE | [facility] | + + + + | 2017-08-07 00:00 | ALBUTEROL SULFATE | [facility] | + + + + | 2017-08-07 00:00 | ALBUTEROL SULFATE | [facility] | + + + + | 2017-08-07 00:00 | ALBUTEROL SULFATE | [facility] | + + + + | 2022-02-03 00:00 | ONDANSETRON | [facility] | + + + + | 2022-02-05 00:00 | ONDANSETRON | [facility] | + + + + | 2022-02-06 00:00 | ONDANSETRON | [facility] | + + + + | 2022-02-06 00:00 | ONDANSETRON | [facility] | + + + + | 2022-02-07 00:00 | ONDANSETRON | [facility] | + + + + | 2022-02-10 00:00 | ONDANSETRON | [facility] | + + + + | 2022-02-16 00:00 | ONDANSETRON | [facility] | + + + + | 2022-03-14 00:00 | ONDANSETRON | [facility] | + + + + | 2022-03-19 00:00 | ONDANSETRON | [facility] | + + + + | 2022-03-22 00:00 | ONDANSETRON | [facility] | + + + + | 2022-10-13 00:00 | ONDANSETRON | [facility] | + + + + | 2022-10-31 00:00 | ONDANSETRON | [facility] | + + + + | 2022-11-21 00:00 | ONDANSETRON | [facility] | + + + + | 2022-11-22 00:00 | ONDANSETRON | [facility] | + + + + | 2022-11-23 00:00 | ONDANSETRON | [facility] | + + + + | 2022-12-16 00:00 | ONDANSETRON | [facility] | + + + + | 2022-12-21 00:00 | ONDANSETRON | [facility] | + + + + | 2023-01-01 00:00 | ONDANSETRON | [facility] | + + + + | 2023-01-10 00:00 | ONDANSETRON | [facility] | + + + + | 2023-01-27 00:00 | ONDANSETRON | [facility] | + + + + | 2023-01-29 00:00 | ONDANSETRON | [facility] | + + + + | 2023-02-14 00:00 | ONDANSETRON | [facility] | + + + + | 2023-02-15 00:00 | ONDANSETRON | [facility] | + + + + | 2020-12-15 00:00 | MECLIZINE HCL | [facility] | + + + + | 2020-12-15 00:00 | MECLIZINE HCL | [facility] | + + + + | 2020-12-15 00:00 | MECLIZINE HCL | [facility] | + + + + | 2020-12-15 00:00 | MECLIZINE HCL | [facility] | + + + + | 2020-12-15 00:00 | MECLIZINE HCL | [facility] | + + + + | 2020-12-15 00:00 | MECLIZINE HCL | [facility] | + + + + | 2020-12-15 00:00 | MECLIZINE HCL | [facility] | + + + + | 2020-12-15 00:00 | MECLIZINE HCL | [facility] | + + + + | 2020-12-15 00:00 | MECLIZINE HCL | [facility] | + + + + Problems + + + + | date | description | facility | + + + + | 2016-05-14 00:00 | Encounter for medication | [facility] | | | refill | | + + + + | 2016-05-14 00:00 | Encounter for medication | [facility] | | | refill | | + + + + | 2016-05-14 00:00 | Encounter for medication | [facility] | | | refill | | + + + + | 2016-05-14 00:00 | Encounter for medication | [facility] | | | refill | | + + + + | 2016-05-14 00:00 | Encounter for medication | [facility] | | | refill | | + + + + | 2016-05-14 00:00 | Encounter for medication | [facility] | | | refill | | + + + + | 2016-05-14 00:00 | Encounter for medication | [facility] | | | refill | | + + + + | 2016-05-14 00:00 | Encounter for medication | [facility] | | | refill | | + + + + | 2016-05-14 00:00 | Encounter for medication | [facility] | | | refill | | + + + + | 2016-08-19 00:00 | Encounter for medical | [facility] | | | screening examination | | + + + + | 2016-08-19 00:00 | Encounter for medical | [facility] | | | screening examination | | + + + + | 2016-08-19 00:00 | Encounter for medical | [facility] | | | screening examination | | + + + + | 2016-08-19 00:00 | Encounter for medical | [facility] | | | screening examination | | + + + + | 2016-08-19 00:00 | Encounter for medical | [facility] | | | screening examination | | + + + + | 2016-08-19 00:00 | Encounter for medical | [facility] | | | screening examination | | + + + + | 2016-08-19 00:00 | Encounter for medical | [facility] | | | screening examination | | + + + + | 2016-08-19 00:00 | Encounter for medical | [facility] | | | screening examination | | + + + + | 2016-08-19 00:00 | Encounter for medical | [facility] | | | screening examination | | + + + + | 2016-10-10 00:00 | Constipation | [facility] | + + + + | 2016-10-10 00:00 | Constipation | [facility] | + + + + | 2016-10-10 00:00 | Constipation | [facility] | + + + + | 2016-10-10 00:00 | Constipation | [facility] | + + + + | 2016-10-10 00:00 | Constipation | [facility] | + + + + | 2016-10-10 00:00 | Constipation | [facility] | + + + + | 2016-10-10 00:00 | Constipation | [facility] | + + + + | 2016-10-10 00:00 | Constipation | [facility] | + + + + | 2016-10-10 00:00 | Constipation | [facility] | + + + + | 2016-10-10 00:00 | Nonspecific abdominal pain | [facility] | | | | | + + + + | 2016-10-10 00:00 | Nonspecific abdominal pain | [facility] | | | | | + + + + | 2016-10-10 00:00 | Nonspecific abdominal pain | [facility] | | | | | + + + + | 2016-10-10 00:00 | Nonspecific abdominal pain | [facility] | | | | | + + + + | 2016-10-10 00:00 | Nonspecific abdominal pain | [facility] | | | | | + + + + | 2016-10-10 00:00 | Nonspecific abdominal pain | [facility] | | | | | + + + + | 2016-10-10 00:00 | Nonspecific abdominal pain | [facility] | | | | | + + + + | 2016-10-10 00:00 | Nonspecific abdominal pain | [facility] | | | | | + + + + | 2016-10-10 00:00 | Nonspecific abdominal pain | [facility] | | | | | + + + + | 2016-10-31 00:00 | Methamphetamine abuse | [facility] | + + + + | 2016-10-31 00:00 | Methamphetamine abuse | [facility] | + + + + | 2016-10-31 00:00 | Methamphetamine abuse | [facility] | + + + + | 2016-10-31 00:00 | Methamphetamine abuse | [facility] | + + + + | 2016-10-31 00:00 | Methamphetamine abuse | [facility] | + + + + | 2016-10-31 00:00 | Methamphetamine abuse | [facility] | + + + + | 2016-10-31 00:00 | Methamphetamine abuse | [facility] | + + + + | 2016-10-31 00:00 | Methamphetamine abuse | [facility] | + + + + | 2016-10-31 00:00 | Methamphetamine abuse | [facility] | + + + + | 2016-10-31 00:00 | Chronic abdominal pain | [facility] | + + + + | 2016-10-31 00:00 | Chronic abdominal pain | [facility] | + + + + | 2016-10-31 00:00 | Chronic abdominal pain | [facility] | + + + + | 2016-10-31 00:00 | Chronic abdominal pain | [facility] | + + + + | 2016-10-31 00:00 | Chronic abdominal pain | [facility] | + + + + | 2016-10-31 00:00 | Chronic abdominal pain | [facility] | + + + + | 2016-10-31 00:00 | Chronic abdominal pain | [facility] | + + + + | 2016-10-31 00:00 | Chronic abdominal pain | [facility] | + + + + | 2016-10-31 00:00 | Chronic abdominal pain | [facility] | + + + + | 2016-10-31 00:00 | Weight loss | [facility] | + + + + | 2016-10-31 00:00 | Weight loss | [facility] | + + + + | 2016-10-31 00:00 | Weight loss | [facility] | + + + + | 2016-10-31 00:00 | Weight loss | [facility] | + + + + | 2016-10-31 00:00 | Weight loss | [facility] | + + + + | 2016-10-31 00:00 | Weight loss | [facility] | + + + + | 2016-10-31 00:00 | Weight loss | [facility] | + + + + | 2016-10-31 00:00 | Weight loss | [facility] | + + + + | 2016-10-31 00:00 | Weight loss | [facility] | + + + + | 2016-11-17 00:00 | Cellulitis | [facility] | + + + + | 2016-11-17 00:00 | Cellulitis | [facility] | + + + + | 2016-11-17 00:00 | Cellulitis | [facility] | + + + + | 2016-11-17 00:00 | Cellulitis | [facility] | + + + + | 2016-11-17 00:00 | Cellulitis | [facility] | + + + + | 2016-11-17 00:00 | Cellulitis | [facility] | + + + + | 2016-11-17 00:00 | Cellulitis | [facility] | + + + + | 2016-11-17 00:00 | Cellulitis | [facility] | + + + + | 2016-11-17 00:00 | Cellulitis | [facility] | + + + + | 2017-01-04 00:00 | Mononeuropathy of right | [facility]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 | | + + + + | 2017-01-04 00:00 | Mononeuropathy of right | [facility]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 | | + + + + | 2017-01-04 00:00 | Mononeuropathy of right | [facility]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 | | + + + + | 2017-01-04 00:00 | Mononeuropathy of right | [facility]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 | | + + + + | 2017-01-04 00:00 | Mononeuropathy of right | [facility]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 | | + + + + | 2017-01-04 00:00 | Mononeuropathy of right | [facility]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 | | + + + + | 2017-01-04 00:00 | Mononeuropathy of right | [facility]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 | | + + + + | 2017-01-04 00:00 | Mononeuropathy of right | [facility]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 | | + + + + | 2017-01-04 00:00 | Mononeuropathy of right | [facility]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 | | + + + + | 2017-06-09 00:00 | Patient left without being | [facility] | | | seen | | + + + + | 2017-06-09 00:00 | Patient left without being | [facility] | | | seen | | + + + + | 2017-06-09 00:00 | Patient left without being | [facility] | | | seen | | + + + + | 2017-06-09 00:00 | Patient left without being | [facility] | | | seen | | + + + + | 2017-06-09 00:00 | Patient left without being | [facility] | | | seen | | + + + + | 2017-06-09 00:00 | Patient left without being | [facility] | | | seen | | + + + + | 2017-06-09 00:00 | Patient left without being | [facility] | | | seen | | + + + + | 2017-06-09 00:00 | Patient left without being | [facility] | | | seen | | + + + + | 2017-06-09 00:00 | Patient left without being | [facility] | | | seen | | + + + + | 2017-06-18 00:00 | Obstructive chronic | [facility] | | | bronchitis with | | | | exacerbation | | + + + + | 2017-06-18 00:00 | Obstructive chronic | [facility] | | | bronchitis with | | | | exacerbation | | + + + + | 2017-06-18 00:00 | Obstructive chronic | [facility] | | | bronchitis with | | | | exacerbation | | + + + + | 2017-06-18 00:00 | Obstructive chronic | [facility] | | | bronchitis with | | | | exacerbation | | + + + + | 2017-06-18 00:00 | Obstructive chronic | [facility] | | | bronchitis with | | | | exacerbation | | + + + + | 2017-06-18 00:00 | Obstructive chronic | [facility] | | | bronchitis with | | | | exacerbation | | + + + + | 2017-06-18 00:00 | Obstructive chronic | [facility] | | | bronchitis with | | | | exacerbation | | + + + + | 2017-06-18 00:00 | Obstructive chronic | [facility] | | | bronchitis with | | | | exacerbation | | + + + + | 2017-06-18 00:00 | Obstructive chronic | [facility] | | | bronchitis with | | | | exacerbation | | + + + + | 2017-06-18 00:00 | Dyspnea on exertion | [facility] | + + + + | 2017-06-18 00:00 | Dyspnea on exertion | [facility] | + + + + | 2017-06-18 00:00 | Dyspnea on exertion | [facility] | + + + + | 2017-06-18 00:00 | Dyspnea on exertion | [facility] | + + + + | 2017-06-18 00:00 | Dyspnea on exertion | [facility] | + + + + | 2017-06-18 00:00 | Dyspnea on exertion | [facility] | + + + + | 2017-06-18 00:00 | Dyspnea on exertion | [facility] | + + + + | 2017-06-18 00:00 | Dyspnea on exertion | [facility] | + + + + | 2017-06-18 00:00 | Dyspnea on exertion | [facility] | + + + + | 2017-08-07 00:00 | Bronchitis | [facility] | + + + + | 2017-08-07 00:00 | Bronchitis | [facility] | + + + + | 2017-08-07 00:00 | Bronchitis | [facility] | + + + + | 2017-08-07 00:00 | Bronchitis | [facility] | + + + + | 2017-08-07 00:00 | Bronchitis | [facility] | + + + + | 2017-08-07 00:00 | Bronchitis | [facility] | + + + + | 2017-08-07 00:00 | Bronchitis | [facility] | + + + + | 2017-08-07 00:00 | Bronchitis | [facility] | + + + + | 2017-08-07 00:00 | Bronchitis | [facility] | + + + + | 2017-09-07 00:00 | Paronychia of finger of [facility] | | | right hand | | + + + + | 2017-09-07 00:00 | Paronychia of finger of [facility] | | | right hand | | + + + + | 2017-09-07 00:00 | Paronychia of finger of [facility] | | | right hand | | + + + + | 2017-09-07 00:00 | Paronychia of finger of [facility] | | | right hand | | + + + + | 2017-09-07 00:00 | Paronychia of finger of [facility] | | | right hand | | + + + + | 2017-09-07 00:00 | Paronychia of finger of [facility] | | | right hand | | + + + + | 2017-09-07 00:00 | Paronychia of finger of [facility] | | | right hand | | + + + + | 2017-09-07 00:00 | Paronychia of finger of [facility] | | | right hand | | + + + + | 2017-09-07 00:00 | Paronychia of finger of | [facility] | | | right hand | | + + + + | 2017-09-28 00:00 | Upper respiratory tract | [facility] | | | infection | | + + + + | 2017-09-28 00:00 | Upper respiratory tract | [facility] | | | infection | | + + + + | 2017-09-28 00:00 | Upper respiratory tract | [facility] | | | infection | | + + + + | 2017-09-28 00:00 | Upper respiratory tract | [facility] | | | infection | | + + + + | 2017-09-28 00:00 | Upper respiratory tract | [facility] | | | infection | | + + + + | 2017-09-28 00:00 | Upper respiratory tract | [facility] | | | infection | | + + + + | 2017-09-28 00:00 | Upper respiratory tract | [facility] | | | infection | | + + + + | 2017-09-28 00:00 | Upper respiratory tract | [facility] | | | infection | | + + + + | 2017-09-28 00:00 | Upper respiratory tract | [facility] | | | infection | | + + + + | 2019-01-27 00:00 | Cellulitis of lower | [facility] | | | extremity | | + + + + | 2019-01-27 00:00 | Cellulitis of lower | [facility] | | | extremity | | + + + + | 2019-01-27 00:00 | Cellulitis of lower | [facility] | | | extremity | | + + + + | 2019-01-27 00:00 | Cellulitis of lower | [facility] | | | extremity | | + + + + | 2019-01-27 00:00 | Cellulitis of lower | [facility] | | | extremity | | + + + + | 2019-01-27 00:00 | Cellulitis of lower | [facility] | | | extremity | | + + + + | 2019-01-27 00:00 | Cellulitis of lower | [facility] | | | extremity | | + + + + | 2019-01-27 00:00 | Cellulitis of lower | [facility] | | | extremity | | + + + + | 2019-01-27 00:00 | Cellulitis of lower | [facility] | | | extremity | | + + + + | 2020-01-23 00:00 | Gout | [facility] | + + + + | 2020-01-23 00:00 | Gout | [facility] | + + + + | 2020-01-23 00:00 | Gout | [facility] | + + + + | 2020-01-23 00:00 | Gout | [facility] | + + + + | 2020-01-23 00:00 | Gout | [facility] | + + + + | 2020-01-23 00:00 | Gout | [facility] | + + + + | 2020-01-23 00:00 | Gout | [facility] | + + + + | 2020-01-23 00:00 | Gout | [facility] | + + + + | 2020-01-23 00:00 | Gout | [facility] | + + + + | 2020-05-09 00:00 | Rectal fissure | [facility] | + + + + | 2020-05-09 00:00 | Rectal fissure | [facility] | + + + + | 2020-05-09 00:00 | Rectal fissure | [facility] | + + + + | 2020-05-09 00:00 | Rectal fissure | [facility] | + + + + | 2020-05-09 00:00 | Rectal fissure | [facility] | + + + + | 2020-05-09 00:00 | Rectal fissure | [facility] | + + + + | 2020-05-09 00:00 | Rectal fissure | [facility] | + + + + | 2020-05-09 00:00 | Rectal fissure | [facility] | + + + + 2020-05-09 00:00 | Rectal fissure | [facility] | + + + + | 2020-07-15 00:00 | Cannabis abuse | [facility] | + + + + | 2020-07-15 00:00 | Cannabis abuse | [facility] | + + + + | 2020-07-15 00:00 | Cannabis abuse | [facility] | + + + + | 2020-07-15 00:00 | Cannabis abuse | [facility] | + + + + 2020-07-15 00:00 | Cannabis abuse | [facility] | + + + + | 2020-07-15 00:00 | Cannabis abuse | [facility] | + + + + | 2020-07-15 00:00 | Cannabis abuse | [facility] | + + + + | 2020-07-15 00:00 | Cannabis abuse | [facility] | + + + + | 2020-07-15 00:00 | Cannabis abuse | [facility] | + + + + 2020-07-15 00:00 | Acute kidney injury | [facility] | + + + + 2020-07-15 00:00 | Acute kidney injury | [facility] | + + + + | 2020-07-15 00:00 | Acute kidney injury | [facility] | + + + + | 2020-07-15 00:00 | Acute kidney injury | [facility] | + + + + | 2020-07-15 00:00 | Acute kidney injury | [facility] | + + + + 2020-07-15 00:00 | Acute kidney injury | [facility] | + + + + 2020-07-15 00:00 | Acute kidney injury | [facility] | + + + + | 2020-07-15 00:00 | Acute kidney injury | [facility] | + + + + | 2020-07-15 00:00 | Acute kidney injury | [facility] | + + + + | 2020-07-15 00:00 | Elevated transaminase | [facility] | | | measurement | | + + + + | 2020-07-15 00:00 | Elevated transaminase | [facility] | | | measurement | | + + + + | 2020-07-15 00:00 | Elevated transaminase | [facility] | | | measurement | | + + + + | 2020-07-15 00:00 | Elevated transaminase | [facility] | | | measurement | | + + + + | 2020-07-15 00:00 | Elevated transaminase | [facility] | | | measurement | | + + + + | 2020-07-15 00:00 | Elevated transaminase | [facility] | | | measurement | | + + + + | 2020-07-15 00:00 | Elevated transaminase | [facility] | | | measurement | | + + + + | 2020-07-15 00:00 | Elevated transaminase | [facility] | | | measurement | | + + + + | 2020-07-15 00:00 | Elevated transaminase | [facility] | | | measurement | | + + + + | 2020-07-15 00:00 | Abrasion of left cornea | [facility] | + + + + 2020-07-15 00:00 | Abrasion of left cornea | [facility] | + + + + | 2020-07-15 00:00 | Abrasion of left cornea | [facility] | + + + + | 2020-07-15 00:00 | Abrasion of left cornea | [facility] | + + + + | 2020-07-15 00:00 | Abrasion of left cornea | [facility] | + + + + | 2020-07-15 00:00 | Abrasion of left cornea | [facility] | + + + + | 2020-07-15 00:00 | Abrasion of left cornea | [facility] | + + + + | 2020-07-15 00:00 | Abrasion of left cornea | [facility] | + + + + | 2020-07-15 00:00 | Abrasion of left cornea | [facility] | + + + + | 2020-09-17 00:00 | 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[facility] | + + + + | 2020-09-17 00:00 | 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[facility] | + + + + | 2020-09-17 00:00 | 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[facility] | + + + + | 2020-09-17 00:00 | 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[facility] | + + + + | 2020-09-17 00:00 | 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[facility] | + + + + | 2020-09-17 00:00 | 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[facility] | + + + + | 2020-09-17 00:00 | 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[facility] | + + + + | 2020-09-17 00:00 | 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[facility] | + + + + | 2020-09-17 00:00 | 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[facility] | + + + + | 2020-11-13 00:00 | Drug use | [facility] | + + + + | 2020-11-13 00:00 | Drug use | [facility] | + + + + | 2020-11-13 00:00 | Drug use | [facility] | + + + + | 2020-11-13 00:00 | Drug use | [facility] | + + + + | 2020-11-13 00:00 | Drug use | [facility] | + + + + | 2020-11-13 00:00 | Drug use | [facility] | + + + + | 2020-11-13 00:00 | Drug use | [facility] | + + + + | 2020-11-13 00:00 | Drug use | [facility] | + + + + | 2020-11-13 00:00 | Drug use | [facility] | + + + + | 2020-12-15 00:00 | Vertigo | [facility] | + + + + | 2020-12-15 00:00 | Vertigo | [facility] | + + + + | 2020-12-15 00:00 | Vertigo | [facility] | + + + + | 2020-12-15 00:00 | Vertigo | [facility] | + + + + | 2020-12-15 00:00 | Vertigo | [facility] | + + + + | 2020-12-15 00:00 | Vertigo | [facility] | + + + + | 2020-12-15 00:00 | Vertigo | [facility] | + + + + | 2020-12-15 00:00 | Vertigo | [facility] | + + + + | 2020-12-15 00:00 | Vertigo | [facility] | + + + + | 2021-02-08 00:00 | Eczema of both hands | [facility] | + + + + | 2021-02-08 00:00 | Eczema of both hands | [facility] | + + + + | 2021-02-08 00:00 | Eczema of both hands | [facility] | + + + + | 2021-02-08 00:00 | Eczema of both hands | [facility] | + + + + | 2021-02-08 00:00 | Eczema of both hands | [facility] | + + + + | 2021-02-08 00:00 | Eczema of both hands | [facility] | + + + + | 2021-02-08 00:00 | Eczema of both hands | [facility] | + + + + | 2021-02-08 00:00 | Eczema of both hands | [facility] | + + + + | 2021-02-08 00:00 | Eczema of both hands | [facility] | + + + + | 2021-04-03 00:00 | Dehydration | [facility] | + + + + | 2021-04-03 00:00 | Dehydration | [facility] | + + + + | 2021-04-03 00:00 | Dehydration | [facility] | + + + + | 2021-04-03 00:00 | Dehydration | [facility] | + + + + | 2021-04-03 00:00 | Dehydration | [facility] | + + + + | 2021-04-03 00:00 | Dehydration | [facility] | + + + + | 2021-04-03 00:00 | Dehydration | [facility] | + + + + | 2021-04-03 00:00 | Dehydration | [facility] | + + + + | 2021-04-03 00:00 | Dehydration | [facility] | + + + + | 2021-04-03 00:00 | Enteritis | [facility] | + + + + | 2021-04-03 00:00 | Enteritis | [facility] | + + + + | 2021-04-03 00:00 | Enteritis | [facility] | + + + + | 2021-04-03 00:00 | Enteritis | [facility] | + + + + | 2021-04-03 00:00 | Enteritis | [facility] | + + + + | 2021-04-03 00:00 | Enteritis | [facility] | + + + + | 2021-04-03 00:00 | Enteritis | [facility] | + + + + | 2021-04-03 00:00 | Enteritis | [facility] | + + + + | 2021-04-03 00:00 | Enteritis | [facility] | + + + + | 2021 00:00 | Parasite not detected | [facility] | + + + + | 2021 00:00 | Parasite not detected | [facility] | + + + + | 2021 00:00 | Parasite not detected | [facility] | + + + + | 2021 00:00 | Parasite not detected | [facility] | + + + + | 2021 00:00 | Parasite not detected | [facility] | + + + + | 2021 00:00 | Parasite not detected | [facility] | + + + + | 2021 00:00 | Parasite not detected | [facility] | + + + + | 2021 00:00 | Parasite not detected | [facility] | + + + + | 2021 00:00 | Parasite not detected | [facility] | + + + + | 2021 00:00 | Pain of hand | [facility] | + + + + | 2021 00:00 | Pain of hand | [facility] | + + + + | 2021 00:00 | Pain of hand | [facility] | + + + + | 2021 00:00 | Pain of hand | [facility] | + + + + | 2021 00:00 | Pain of hand | [facility] | + + + + | 2021 00:00 | Pain of hand | [facility] | + + + + | 2021 00:00 | Pain of hand | [facility] | + + + + | 2021 00:00 | Pain of hand | [facility] | + + + + | 2021 00:00 | Pain of hand | [facility] | + + + + | 2021-05-18 00:00 | Viral infection | [facility] | + + + + | 2021-05-18 00:00 | Viral infection | [facility] | + + + + | 2021-05-18 00:00 | Viral infection | [facility] | + + + + | 2021-05-18 00:00 | Viral infection | [facility] | + + + + | 2021-05-18 00:00 | Viral infection | [facility] | + + + + | 2021-05-18 00:00 | Viral infection | [facility] | + + + + | 2021-05-18 00:00 | Viral infection | [facility] | + + + + | 2021-05-18 00:00 | Viral infection | [facility] | + + + + | 2021-05-18 00:00 | Viral infection | [facility] | + + + + | 2021-07-02 00:00 | Acute bronchitis | [facility] | + + + + | 2021-07-02 00:00 | Acute bronchitis | [facility] | + + + + | 2021-07-02 00:00 | Acute bronchitis | [facility] | + + + + | 2021-07-02 00:00 | Acute bronchitis | [facility] | + + + + | 2021-07-02 00:00 | Acute bronchitis | [facility] | + + + + | 2021-07-02 00:00 | Acute bronchitis | [facility] | + + + + | 2021-07-02 00:00 | Acute bronchitis | [facility] | + + + + | 2021-07-02 00:00 | Acute bronchitis | [facility] | + + + + | 2021-07-02 00:00 | Acute bronchitis | [facility] | + + + + | 2021-07-13 00:00 | Dizziness | [facility] | + + + + | 2021-07-13 00:00 | Dizziness | [facility] | + + + + | 2021-07-13 00:00 | Dizziness | [facility] | + + + + | 2021-07-13 00:00 | Dizziness | [facility] | + + + + | 2021-07-13 00:00 | Dizziness | [facility] | + + + + | 2021-07-13 00:00 | Dizziness | [facility] | + + + + | 2021-07-13 00:00 | Dizziness | [facility] | + + + + | 2021-07-13 00:00 | Dizziness | [facility] | + + + + | 2021-07-13 00:00 | Dizziness | [facility] | + + + + | 2021-08-27 00:00 | Schizoaffective disorder | [facility] | + + + + | 2021-08-27 00:00 | Schizoaffective disorder | [facility] | + + + + | 2021-08-27 00:00 | Schizoaffective disorder | [facility] | + + + + | 2021-08-27 00:00 | Schizoaffective disorder | [facility] | + + + + | 2021-08-27 00:00 | Schizoaffective disorder | [facility] | + + + + | 2021-08-27 00:00 | Schizoaffective disorder | [facility] | + + + + | 2021-08-27 00:00 | Schizoaffective disorder | [facility] | + + + + | 2021-08-27 00:00 | Schizoaffective disorder | [facility] | + + + + | 2021-08-27 00:00 | Schizoaffective disorder | [facility] | + + + + | 2021-08-27 00:00 | Stomatitis | [facility] | + + + + | 2021-08-27 00:00 | Stomatitis | [facility] | + + + + | 2021-08-27 00:00 | Stomatitis | [facility] | + + + + | 2021-08-27 00:00 | Stomatitis | [facility] | + + + + | 2021-08-27 00:00 | Stomatitis | [facility] | + + + + | 2021-08-27 00:00 | Stomatitis | [facility] | + + + + | 2021-08-27 00:00 | Stomatitis | [facility] | + + + + | 2021-08-27 00:00 | Stomatitis | [facility] | + + + + | 2021-08-27 00:00 | Stomatitis | [facility] | + + + + | 2021-09-22 00:00 | Vomiting | [facility] | + + + + | 2021-09-22 00:00 | Vomiting | [facility] | + + + + | 2021-09-22 00:00 | Vomiting | [facility] | + + + + | 2021-09-22 00:00 | Vomiting | [facility] | + + + + | 2021-09-22 00:00 | Vomiting | [facility] | + + + + | 2021-09-22 00:00 | Vomiting | [facility] | + + + + | 2021-09-22 00:00 | Vomiting | [facility] | + + + + | 2021-09-22 00:00 | Vomiting | [facility] | + + + + | 2021-09-22 00:00 | Vomiting | [facility] | + + + + | 2021-11-12 00:00 | Pneumonia | [facility] | + + + + | 2021-11-12 00:00 | Pneumonia | [facility] | + + + + | 2021-11-12 00:00 | Pneumonia | [facility] | + + + + | 2021-11-12 00:00 | Pneumonia | [facility] | + + + + | 2021-11-12 00:00 | Pneumonia | [facility] | + + + + | 2021-11-12 00:00 | Pneumonia | [facility] | + + + + | 2021-11-12 00:00 | Pneumonia | [facility] | + + + + | 2021-11-12 00:00 | Pneumonia | [facility] | + + + + | 2021-11-12 00:00 | Pneumonia | [facility] | + + + + | 2022-01-03 00:00 | Dental abscess | [facility] | + + + + | 2022-01-03 00:00 | Dental abscess | [facility] | + + + + | 2022-01-03 00:00 | Dental abscess | [facility] | + + + + | 2022-01-03 00:00 | Dental abscess | [facility] | + + + + | 2022-01-03 00:00 | Dental abscess | [facility] | + + + + | 2022-01-03 00:00 | Dental abscess | [facility] | + + + + | 2022-01-03 00:00 | Dental abscess | [facility] | + + + + | 2022-01-03 00:00 | Dental abscess | [facility] | + + + + | 2022-01-03 00:00 | Dental abscess | [facility] | + + + + | 2022-01-14 00:00 | Parasitic infestation | [facility] | + + + + | 2022-01-14 00:00 | Parasitic infestation | [facility] | + + + + | 2022-01-14 00:00 | Parasitic infestation | [facility] | + + + + | 2022-01-14 00:00 | Parasitic infestation | [facility] | + + + + | 2022-01-14 00:00 | Parasitic infestation | [facility] | + + + + | 2022-01-14 00:00 | Parasitic infestation | [facility] | + + + + | 2022-01-14 00:00 | Parasitic infestation | [facility] | + + + + | 2022-01-14 00:00 | Parasitic infestation | [facility] | + + + + | 2022-01-14 00:00 | Parasitic infestation | [facility] | + + + + | 2022-01-23 00:00 | Cellulitis of finger of | [facility] | | | left hand | | + + + + | 2022-01-23 00:00 | Cellulitis of finger of | [facility] | | | left hand | | + + + + | 2022-01-23 00:00 | Cellulitis of finger of | [facility] | | | left hand | | + + + + | 2022-01-23 00:00 | Cellulitis of finger of | [facility] | | | left hand | | + + + + | 2022-01-23 00:00 | Cellulitis of finger of [facility] | | | left hand | | + + + + | 2022-01-23 00:00 | Cellulitis of finger of [facility] | | | left hand | | + + + + | 2022-01-23 00:00 | Cellulitis of finger of | [facility] | | | left hand | | + + + + | 2022-01-23 00:00 | Cellulitis of finger of | [facility] | | | left hand | | + + + + | 2022-01-23 00:00 | Cellulitis of finger of | [facility] | | | left hand | | + + + + | 2022-01-25 00:00 | Swelling | [facility] | + + + + | 2022-01-25 00:00 | Swelling | [facility] | + + + + | 2022-01-25 00:00 | Swelling | [facility] | + + + + | 2022-01-25 00:00 | Swelling | [facility] | + + + + | 2022-01-25 00:00 | Swelling | [facility] | + + + + | 2022-01-25 00:00 | Swelling | [facility] | + + + + | 2022-01-25 00:00 | Swelling | [facility] | + + + + | 2022-01-25 00:00 | Swelling | [facility] | + + + + | 2022-01-25 00:00 | Swelling | [facility] | + + + + | 2022-01-28 00:00 | Cellulitis of left ring | [facility] | | | finger | | + + + + | 2022-01-28 00:00 | Cellulitis of left ring | [facility] | | | finger | | + + + + | 2022-01-28 00:00 | Cellulitis of left ring | [facility] | | | finger | | + + + + | 2022-01-28 00:00 | Cellulitis of left ring | [facility] | | | finger | | + + + + | 2022-01-28 00:00 | Cellulitis of left ring | [facility] | | | finger | | + + + + | 2022-01-28 00:00 | Cellulitis of left ring | [facility] | | | finger | | + + + + | 2022-01-28 00:00 | Cellulitis of left ring | [facility] | | | finger | | + + + + | 2022-01-28 00:00 | Cellulitis of left ring | [facility] | | | finger | | + + + + | 2022-01-28 00:00 | Cellulitis of left ring | [facility] | | | finger | | + + + + | 2022-02-10 00:00 | Injury of extremity | [facility] | + + + + | 2022-02-10 00:00 | Injury of extremity | [facility] | + + + + | 2022-02-10 00:00 | Injury of extremity | [facility] | + + + + | 2022-02-10 00:00 | Injury of extremity | [facility] | + + + + | 2022-02-10 00:00 | Injury of extremity | [facility] | + + + + | 2022-02-10 00:00 | Injury of extremity | [facility] | + + + + | 2022-02-10 00:00 | Injury of extremity | [facility] | + + + + | 2022-02-10 00:00 | Injury of extremity | [facility] | + + + + | 2022-03-10 00:00 | Cellulitis of thumb | [facility] | + + + + | 2022-03-10 00:00 | Cellulitis of thumb | [facility] | + + + + | 2022-03-10 00:00 | Cellulitis of thumb | [facility] | + + + + | 2022-03-10 00:00 | Cellulitis of thumb | [facility] | + + + + | 2022-03-10 00:00 | Cellulitis of thumb | [facility] | + + + + | 2022-03-10 00:00 | Cellulitis of thumb | [facility] | + + + + | 2022-03-10 00:00 | Cellulitis of thumb | [facility] | + + + + | 2022-03-10 00:00 | Cellulitis of thumb | [facility] | + + + + | 2022-03-10 00:00 | Formication | [facility] | + + + + | 2022-03-10 00:00 | Formication | [facility] | + + + + | 2022-03-10 00:00 | Formication | [facility] | + + + + | 2022-03-10 00:00 | Formication | [facility] | + + + + | 2022-03-10 00:00 | Formication | [facility] | + + + + | 2022-03-10 00:00 | Formication | [facility] | + + + + | 2022-03-10 00:00 | Formication | [facility] | + + + + | 2022-03-10 00:00 | Formication | [facility] | + + + + | 2022-03-14 00:00 | 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[facility] | + + + + | 2022-03-14 00:00 | 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[facility] | + + + + | 2022-03-14 00:00 | 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[facility] | + + + + | 2022-03-14 00:00 | 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[facility] | + + + + | 2022-03-14 00:00 | 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[facility] | + + + + | 2022-03-14 00:00 | 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[facility] | + + + + | 2022-03-14 00:00 | 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[facility] | + + + + | 2022-03-22 00:00 | Swelling of hand | [facility] | + + + + | 2022-03-22 00:00 | Swelling of hand | [facility] | + + + + | 2022-03-22 00:00 | Swelling of hand | [facility] | + + + + | 2022-03-22 00:00 | Swelling of hand | [facility] | + + + + | 2022-03-22 00:00 | Swelling of hand | [facility] | + + + + | 2022-03-22 00:00 | Swelling of hand | [facility] | + + + + | 2022-03-22 00:00 | Swelling of hand | [facility] | + + + + | [...] | 2022-11-23 00:00 | Dental caries | [facility] | + + + + | 2022-11-23 00:00 | Dental caries | [facility] | + + + + | 2022-11-23 00:00 | Dental caries | [facility] | + + + + | 2022-11-23 00:00 | Dental caries | [facility] | + + + + | 2022-11-23 00:00 | Dental caries | [facility] | + + + + | 2022-11-23 00:00 | Dental caries | [facility] | + + + + | 2022-11-23 00:00 | Dental caries | [facility] | + + + + | 2022-11-23 00:00 | Abscess of face | [facility] | + + + + | 2022-11-23 00:00 | Abscess of face | [facility] | + + + + | 2022-11-23 00:00 | Abscess of face | [facility] | + + + + | 2022-11-23 00:00 | Abscess of face | [facility] | + + + + | 2022-11-23 00:00 | Abscess of face | [facility] | + + + + | 2022-11-23 00:00 | Abscess of face | [facility] | + + + + | 2022-11-23 00:00 | Abscess of face | [facility] | + + + + | 2022-12-16 00:00 | Dizziness of unknown | [facility] | | | etiology | | + + + + | 2022-12-16 00:00 | Dizziness of unknown | [facility] | | | etiology | | + + + + | 2022-12-16 00:00 | Dizziness of unknown | [facility] | | | etiology | | + + + + | 2022-12-16 00:00 | Dizziness of unknown | [facility] | | | etiology | | + + + + | 2022-12-16 00:00 | Dizziness of unknown | [facility] | | | etiology | | + + + + | 2022-12-16 00:00 | Dizziness of unknown | [facility] | | | etiology | | + + + + | 2022-12-16 00:00 | Dizziness of unknown | [facility] | | | etiology | | + [...] + + | 2022-12-16 20:45 | OTHER [facility] (CURRENT) | [facility] | | | DRUG [...] + + | 2022-12-21 12:34 | OTHER [employer] (CURRENT) | [facility] | | | DRUG THERAPY | | + + + + | 2023-01-01 00:00 | Infestation by Sarcoptes | [facility] | | | scabiei | | + + + + | 2023-01-01 00:00 | Infestation by Sarcoptes | [facility] | | | scabiei | | + + + + | 2023-01-01 00:00 | Infestation by Sarcoptes | [facility] | | | scabiei | | + + + + | 2023-01-01 00:00 | Infestation by Sarcoptes | [facility] [facility] | | | scabiei | | + + + + | 2023-01-01 00:00 | Infestation by Sarcoptes | [facility] | | | scabiei | | + + + + | 2023-01-01 00:00 | Hypothyroidism | [facility] | + + + + | 2023-01-01 00:00 | Hypothyroidism | [facility] | + + + + | 2023-01-01 00:00 | Hypothyroidism | [facility] | + + + + | 2023-01-01 00:00 | Hypothyroidism | [facility] | + + + + | 2023-01-01 00:00 | Hypothyroidism | [facility] | + + + + | 2023-01-01 00:00 | Hypertension | [facility] | + + + + | 2023-01-01 00:00 | Hypertension | [facility] | + + + + | 2023-01-01 00:00 | Hypertension | [facility] | + + + + | 2023-01-01 00:00 | Hypertension | [facility] | + + + + | 2023-01-01 00:00 | Hypertension | [facility] | + + + + | 2023-01-01 [...] + + | 2023-01-01 18:29 | OTHER [facility] (CURRENT) | [facility] | | | DRUG [...] + + | 2023-01-10 07:21 | OTHER [facility] (CURRENT) | [facility] | | | DRUG THERAPY | | + + + + | 2023-01-27 00:00 | Chronic dermatitis of | [facility] | | | hands | | + + + + | 2023-01-27 00:00 | Chronic dermatitis of | [facility] | | | hands | | + + + + | 2023-01-27 00:00 | Chronic dermatitis of | [facility] | | | hands | | + [...] + + | 2023-01-27 09:48 | 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
[~2023-02-16 06:38] MED LIST changes: +KERALAC142 G1 TOP
--- OUTSIDE RECORDS SUMMARY | 2023-02-16 06:46 | XMS ---
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 11/21/2022 13:52 - Patient eloped before treatment completed. - Patient with suicidal and/or homicidal ideations eloped. - Patient eloped with IV in place. Details: Patient LWBS. Elopement at [facility] 10/31/2022 17:09 - Patient eloped before treatment completed. - Patient with suicidal and/or homicidal ideations eloped. - Patient eloped with IV in place. Details: Patient LWBS Elopement at [facility] 02/10/2022 06:38 - Patient eloped before treatment completed. - Patient with suicidal and/or homicidal ideations eloped. - Patient eloped with IV in place. Details: PATIENT LWBS CRITERIA MET - 6 ED Visits in 6 Months - Group Notification - [facility] - 2 Visits in 30 Days - [facility] - Has Care Guidelines CARE PROVIDERS -[place]- Dentist: Learning And Development Consultant [facility] PHONE: [phone] JAMILA NORIEGA [facility] 01/24/2020-[facility] PHONE: [phone] [place] has no Care Guidelines for this patient. Care History Medical/Surgical 03/11/2022 [facility] ALERT KATHLEEN HAS BEEN TRYING TO CONTACT PATIENT. IF PATIENT IS SEEN IN THE ED PLEASE CONTACT KATHLEEN CRISIS LINE [phone]. KATHLEEN HAS A PHONE TO PROVIDE TO THE PATIENT. PLEASE LET PATIENT KNOW. KATHLEEN IS TRYING TO HELP WITH HOUSING RESOURCES AND WOULD LIKE TO FURTHER ASSIST. 09/02/2021 [facility] [...] CONTACTED. E.D. VISIT COUNT (12 MO.) 5 [place] Steve 18 LASHAY Delgado TOTAL 23 NOTE: Visits indicate total known visits. ED/UCC VISIT TRACKING (12 MO.) 02/16/2023 06:39 [facility] [place] TYPE: Emergency COMPLAINT: - HAND PAIN 02/15/2023 00:29 [facility] [place] TYPE: Emergency COMPLAINT: - HEAT STRESSED 02/14/2023 14:30 [facility] [place] TYPE: Emergency COMPLAINT: - POSS HEAT STROKE 01/29/2023 00:24 [facility] [place] TYPE: Emergency COMPLAINT: - SKIN PROBLEM DIAGNOSES: - Anxiety disorder, unspecified - Dermatitis, unspecified - Essential (primary) hypertension - Nicotine dependence, unspecified, uncomplicated - Other medical terminologist (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 - Pain in left hand - Type 2 diabetes mellitus without complications 01/27/2023 09:48 [facility] [place] TYPE: Emergency COMPLAINT: - MEDICAL CLEARANCE DIAGNOSES: - Delusional disorders - Dermatitis, unspecified - Disorder of thyroid, unspecified - Essential (primary) hypertension - Nicotine dependence, unspecified, uncomplicated - Other medical terminologist (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 - Type 2 diabetes mellitus without complications 01/14/2023 10:54 [facility] Steve [place]AR[place] TYPE: Emergency DIAGNOSES: - Changes in skin texture - hands burning - Wound [facility] DIAGNOSES: - Cellulitis of right upper limb - Rash and other nonspecific skin eruption - Scabies - hand pain - Headache (Adult - New Onset Or New Symptoms) - Nausea - Scabies (Possible) 01/10/2023 07:21 [facility] [place] TYPE: Emergency COMPLAINT: - HAND PAIN/SWELLING DIAGNOSES: - Changes in skin texture - Essential (primary) hypertension - Nicotine dependence, unspecified, uncomplicated - Other medical terminologist (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 - Other stimulant abuse, uncomplicated - Pain in left hand - Type 2 diabetes mellitus without complications 01/01/2023 18:29 [facility] [place] TYPE: Emergency COMPLAINT: - BUG BITES DIAGNOSES: - Essential (primary) hypertension - Nicotine dependence, unspecified, uncomplicated - Other medical terminologist (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 - Other stimulant abuse, in remission - Scabies - Type 2 diabetes mellitus without complications 12/21/2022 12:34 [facility] [place] [facility] [place] TYPE: Emergency COMPLAINT: - DIZZINESS DIAGNOSES: - Essential (primary) hypertension - Nicotine dependence, unspecified, uncomplicated - Other fdc (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 - Other stimulant abuse, uncomplicated - Type 2 diabetes mellitus without complications - Weakness 12/16/2022 20:[address] [facility] [address] [facility] TYPE: Emergency COMPLAINT: - DIZZINESS DIAGNOSES: - Dizziness and giddiness - Essential (primary) hypertension - Nicotine dependence, unspecified, uncomplicated - Other medical terminologist (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 - Type 2 diabetes mellitus without complications 12/09/2022 18:55 [facility] Steve [place]AR[place] TYPE: Emergency DIAGNOSES: - Cellulitis of right upper limb - Arm Swelling - Rt arm pain/swelling 11/23/2022 10:03 [facility] [place] TYPE: Emergency COMPLAINT: - THINKS HE HAS INFECTION DIAGNOSES: - Dental caries, unspecified - Diseases of lips - Essential (primary) hypertension - Nicotine dependence, unspecified, uncomplicated - Other fdc (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 - Type 2 diabetes [...] COMPLAINT: - HAND PAIN 10/13/2022 11:[address] [facility] [address] [facility] [place] TYPE: Emergency COMPLAINT: - MOUTH, HANDS, FEET PAIN, HEADACHE DIAGNOSES: - Essential (primary) hypertension - Localized edema - Nicotine dependence, unspecified, uncomplicated - Type 2 diabetes mellitus without complications 03/22/2022 09:[address] [facility] [address] [facility] [place] TYPE: Emergency COMPLAINT: - EXTREMITY PAIN/INJURY DIAGNOSES: - Essential (primary) hypertension - Nicotine dependence, unspecified, uncomplicated - Other medical terminologist (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 - Other specified soft tissue disorders 03/14/2022 16:[address] [facility] [address] [facility] [place] TYPE: Emergency COMPLAINT: - SKIN PROBLEM DIAGNOSES: - Delusional disorders - Disorder of the skin and subcutaneous tissue, unspecified - Essential (primary) hypertension - Nicotine dependence, unspecified, uncomplicated - Other medical terminologist (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 - Other stimulant abuse, uncomplicated - Rash and other nonspecific skin eruption [facility]22 13[facility] COMPLAINT: - MOUTH, THROAT, HANDS PAIN DIAGNOSES: - Changes in skin texture - Essential (primary) hypertension - Nicotine dependence, unspecified, uncomplicated - Other medical terminologist (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 - Other stimulant abuse, uncomplicated - Paresthesia of skin Plus 3 More Visits INPATIENT VISIT TRACKING (12 MO.) 12/09/2022 18:55 [facility] Radha ROSARIO TYPE: Medical Surgical DIAGNOSES: - Cellulitis of right upper limb - Cellulitis of right upper limb [email or web address]
[2023-02-16 07:40] VITALS: BP 138/89
== END 2023-02-16 07:40 | disposition home or self-care (01) ==
LOC: ED 06:38
DX: L85.3 Xerosis cutis (principal); F25.9 Schizoaffective disorder, unspecified; I10 Essential (primary) hypertension; E11.9 Type 2 diabetes mellitus without complications; F17.200 Nicotine dependence, unspecified, uncomplicated; Z79.899 Other long term (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
CPT/HCPCS: 99283

== ENCOUNTER 2023-02-26 19:01 | Emergency (ER) | payer MEDICARE, OTHER ==
[~2023-02-26] VITALS: Ht 162.6 cm; Wt 49.0 kg
--- OUTSIDE RECORDS SUMMARY | ~2023-02-26 | XMS | Continuity of Care Document ---
Demographics + + + | Address | [address] | | | [place] [address] | + + + | Preferred Language | Unknown | + + + | Marital Status | Never | + + + | Hinduism Affiliation | Unknown | + + + | Race | White | + + + | Ethnic Group | Not or | + + + Author + + + | Author | [facility] | + + + | Organization | [facility] | + + + | Address | [address] | | | [place] [address] | + + + | Phone | | + + + Care Team Providers + + + + | Care Manager Testing Name | Role | Phone | + [...] + + | 2017-09-28 00:00 | | [facility] | | | Guaifenesin/Dextromethorpha | | | | n | | + + + + | 2017-09-28 00:00 | | [facility] | | | Guaifenesin/Dextromethorpha | | | | n | | + + + + | 2017-09-28 00:00 | | [facility] | | | Guaifenesin/Dextromethorpha | | | | n | | + + + + | 2017-09-28 00:00 | | [facility] | | | Guaifenesin/Dextromethorpha | | | | n | | + + + + | 2017-09-28 00:00 | | [facility] | | | Guaifenesin/Dextromethorpha | | | | n | | + + + + | 2017-09-28 00:00 | | [facility] | | | Guaifenesin/Dextromethorpha | | | | n | | + + + + | 2017-09-28 00:00 | | [facility] | | | Guaifenesin/Dextromethorpha | | | | n | | + + + + | 2017-09-28 00:00 | | [facility] | | | Guaifenesin/Dextromethorpha | | | | n | | + + + + | 2017-09-28 00:00 | | [facility] | | | Guaifenesin/Dextromethorpha | | | | n | | + + + + | 2017-09-28 00:00 | | [facility] | | | Gufenesin/Dextromethorpha | | | | n | | + + + + | 2021-04-03 00:00 | ONDANSETRON HCL | [facility] | + + + + | 2021-04-03 00:00 | ONDANSETRON HCL | [facility] | + + + + | 2021-04-03 00:00 | ONDANSETRON HCL | [facility] | + + + + | 2021-04-03 00:00 | ONDANSETRON HCL | [facility] | + + + + | 2021-04-03 00:00 | ONDANSETRON HCL | [facility] | + + + + | 2021-04-03 00:00 | ONDANSETRON HCL | [facility] | + + + + | 2021-04-03 00:00 | ONDANSETRON HCL | [facility] | + + + + | 2021-04-03 00:00 | ONDANSETRON HCL | [facility] | + + + + | 2021-04-03 00:00 | ONDANSETRON HCL | [facility] | + + + + | 2021-04-03 00:00 | ONDANSETRON HCL | [facility] | + + + + | 2021-02-08 00:00 | TRIAMCINOLONE ACETONIDE | [facility] | + + + + | 2021-02-08 00:00 | TRIAMCINOLONE ACETONIDE | [facility] | + + + + | 2021-02-08 00:00 | TRIAMCINOLONE ACETONIDE | [facility] | + + + + | 2021-02-08 00:00 | TRIAMCINOLONE ACETONIDE | [facility] | + + + + | 2021-02-08 00:00 | TRIAMCINOLONE ACETONIDE | [facility] | + + + + | 2021-02-08 00:00 | TRIAMCINOLONE ACETONIDE | [facility] | + + + + | 2021-02-08 00:00 | TRIAMCINOLONE ACETONIDE | [facility] | + + + + | 2021-02-08 00:00 | TRIAMCINOLONE ACETONIDE | [facility] | + + + + | 2021-02-08 00:00 | TRIAMCINOLONE ACETONIDE | [facility] | + + + + | 2021-02-08 00:00 | TRIAMCINOLONE ACETONIDE | [facility] | + + + + | 2023-01-29 00:00 | UREA | [facility] | + + + + | 2023-01-29 00:00 | UREA | [facility] | + + + + | 2023-01-29 00:00 | UREA | [facility] | + + + + | 2021-08-27 00:00 | OLANZAPINE | [facility] | + + + + | 2021-08-27 00:00 | OLANZAPINE | [facility] | + + + + | 2021-08-27 00:00 | OLANZAPINE | [facility] | + + + + | 2021-08-27 00:00 | OLANZAPINE | [facility] | + + + + | 2021-08-27 00:00 | OLANZAPINE | [facility] | + + + + | 2021-08-27 00:00 | OLANZAPINE | [facility] | + + + + | 2021-08-27 00:00 | OLANZAPINE | [facility] | + + + + | 2021-08-27 00:00 | OLANZAPINE | [facility] | + + + + | 2021-08-27 00:00 | OLANZAPINE | [facility] | + + + + | 2021-08-27 00:00 | OLANZAPINE | [facility] | + + + + | 2021-09-01 00:00 | OLANZAPINE | [facility] | + + + + | 2021-09-01 00:00 | OLANZAPINE | [facility] | + + + + | 2021-09-01 00:00 | OLANZAPINE | [facility] | + + + + | 2021-09-01 00:00 | OLANZAPINE | [facility] | + + + + | 2021-09-01 00:00 | OLANZAPINE | [facility] | + + + + | 2021-09-01 00:00 | OLANZAPINE | [facility] | + + + + | 2021-09-01 00:00 | OLANZAPINE | [facility] | + + + + | 2021-09-01 00:00 | OLANZAPINE | [facility] | + + + + | 2021-09-01 00:00 | OLANZAPINE | [facility] | + + + + | 2021-09-01 00:00 | OLANZAPINE | [facility] | + + + + | 2022-10-13 00:00 | DOXYCYCLINE HYCLATE | [facility] | + + + + | 2022-01-31 00:00 | AMLODIPINE BESYLATE | [facility] | + + + + | 2022-01-31 00:00 | AMLODIPINE BESYLATE | [facility] | + + + + | 2022-01-31 00:00 | AMLODIPINE BESYLATE | [facility] | + + + + | 2022-01-23 00:00 | CEPHALEXIN | [facility] | + + + + | 2022-01-23 00:00 | CEPHALEXIN | [facility] | + + + + | 2022-01-23 00:00 | CEPHALEXIN | [facility] | + + + + | 2022-01-23 00:00 | CEPHALEXIN | [facility] | + + + + | 2022-01-23 00:00 | CEPHALEXIN | [facility] | + + + + | 2022-01-23 00:00 | CEPHALEXIN | [facility] | + + + + | 2022-01-23 00:00 | CEPHALEXIN | [facility] | + + + + | 2022-01-23 00:00 | CEPHALEXIN | [facility] | + + + + | 2022-01-23 00:00 | CEPHALEXIN | [facility] | + + + + | 2022-01-23 00:00 | CEPHALEXIN | [facility] | + + + + | 2022-03-10 00:00 | CEPHALEXIN | [facility] | + + + + | 2022-03-10 00:00 | CEPHALEXIN | [facility] | + + + + | 2017-09-07 00:00 | IBUPROFEN | [facility] | + + + + | 2017-09-07 00:00 | IBUPROFEN | [facility] | + + + + | 2017-09-07 00:00 | IBUPROFEN | [facility] | + + + + | 2017-09-07 00:00 | IBUPROFEN | [facility] | + + + + | 2017-09-07 00:00 | IBUPROFEN | [facility] | + + + + | 2017-09-07 00:00 | IBUPROFEN | [facility] | + + + + | 2017-09-07 00:00 | IBUPROFEN | [facility] | + + + + | 2017-09-07 00:00 | IBUPROFEN | [facility] | + + + + | 2017-09-07 00:00 | IBUPROFEN | [facility] | + + + + | 2017-09-07 00:00 | IBUPROFEN | [facility] | + + + + | 2023-01-01 00:00 | PERMETHRIN | [facility] | + + + + | 2023-01-01 00:00 | PERMETHRIN | [facility] | + + + + | 2023-01-01 00:00 | PERMETHRIN | [facility] | + + + + | 2023-01-01 00:00 | PERMETHRIN | [facility] | + + + + | 2023-01-01 00:00 | PERMETHRIN | [facility] | + + + + | 2019-01-27 00:00 | CEPHALEXIN | [facility] | + + + + | 2019-01-27 00:00 | CEPHALEXIN | [facility] | + + + + | 2019-01-27 00:00 | CEPHALEXIN | [facility] | + + + + | 2019-01-27 00:00 | CEPHALEXIN | [facility] | + + + + | 2019-01-27 00:00 | CEPHALEXIN | [facility] | + + + + | 2019-01-27 00:00 | CEPHALEXIN | [facility] | + + + + | 2019-01-27 00:00 | CEPHALEXIN | [facility] | + + + + | 2019-01-27 00:00 | CEPHALEXIN | [facility] | + + + + | 2019-01-27 00:00 | CEPHALEXIN | [facility] | + + + + | 2019-01-27 00:00 | CEPHALEXIN | [facility] | + + + + | 2017-08-07 00:00 | AZITHROMYCIN | [facility] | + + + + | 2017-08-07 00:00 | AZITHROMYCIN | [facility] | + + + + | 2017-08-07 00:00 | AZITHROMYCIN | [facility] | + + + + | 2017-08-07 00:00 | AZITHROMYCIN | [facility] | + + + + | 2017-08-07 00:00 | AZITHROMYCIN | [facility] | + + + + | 2017-08-07 00:00 | AZITHROMYCIN | [facility] | + + + + | 2017-08-07 00:00 | AZITHROMYCIN | [facility] | + + + + | 2017-08-07 00:00 | AZITHROMYCIN | [facility] | + + + + | 2017-08-07 00:00 | AZITHROMYCIN | [facility] | + + + + | 2017-08-07 00:00 | AZITHROMYCIN | [facility] | + + + + | 2022-03-14 00:00 | BETAMETHASONE DIPROPIONATE | [facility] | | | | | + + + + | 2016-11-17 00:00 | CEPHALEXIN | [facility] | + + + + | 2016-11-17 00:00 | CEPHALEXIN | [facility] | + + + + | 2016-11-17 00:00 | CEPHALEXIN | [facility] | + + + + | 2016-11-17 00:00 | CEPHALEXIN | [facility] | + + + + | 2016-11-17 00:00 | CEPHALEXIN | [facility] | + + + + | 2016-11-17 00:00 | CEPHALEXIN | [facility] | + + + + | 2016-11-17 00:00 | CEPHALEXIN | [facility] | + + + + | 2016-11-17 00:00 | CEPHALEXIN | [facility] | + + + + | 2016-11-17 00:00 | CEPHALEXIN | [facility] | + + + + | 2016-11-17 00:00 | CEPHALEXIN | [facility] | + + + + | 2016-11-20 00:00 | CEPHALEXIN | [facility] | + + + + | 2016-11-20 00:00 | CEPHALEXIN | [facility] | + + + + | 2016-11-20 00:00 | CEPHALEXIN | [facility] | + + + + | 2016-11-20 00:00 | CEPHALEXIN | [facility] | + + + + | 2016-11-20 00:00 | CEPHALEXIN | [facility] | + + + + | 2016-11-20 00:00 | CEPHALEXIN | [facility] | + + + + | 2016-11-20 00:00 | CEPHALEXIN | [facility] | + + + + | 2016-11-20 00:00 | CEPHALEXIN | [facility] | + + + + | 2016-11-20 00:00 | CEPHALEXIN | [facility] | + + + + | 2016-11-20 00:00 | CEPHALEXIN | [facility] | + + + + | 2022-02-03 00:00 | CEPHALEXIN | [facility] | + + + + | 2022-02-05 00:00 | CEPHALEXIN | [facility] | + + + + | 2022-02-06 00:00 | CEPHALEXIN | [facility] | + + + + | 2022-02-06 00:00 | CEPHALEXIN | [facility] | + + + + | 2022-02-07 00:00 | CEPHALEXIN | [facility] | + + + + | 2022-02-10 00:00 | CEPHALEXIN | [facility] | + + + + | 2022-02-16 00:00 | CEPHALEXIN | [facility] | + + + + | 2022-03-14 00:00 | CEPHALEXIN | [facility] | + + + + | 2022-03-19 00:00 | CEPHALEXIN | [facility] | + + + + | 2022-03-22 00:00 | CEPHALEXIN | [facility] | + + + + | 2022-10-13 00:00 | CEPHALEXIN | [facility] | + + + + | 2022-10-31 00:00 | CEPHALEXIN | [facility] | + + + + | 2022-11-21 00:00 | CEPHALEXIN | [facility] | + + + + | 2022-11-22 00:00 | CEPHALEXIN | [facility] | + + + + | 2022-11-23 00:00 | CEPHALEXIN | [facility] | + + + + | 2022-12-16 00:00 | CEPHALEXIN | [facility] | + + + + | 2022-12-21 00:00 | CEPHALEXIN | [facility] | + + + + | 2023-01-01 00:00 | CEPHALEXIN | [facility] | + + + + | 2023-01-10 00:00 | CEPHALEXIN | [facility] | + + + + | 2023-01-27 00:00 | CEPHALEXIN | [facility] | + + + + | 2023-01-29 00:00 | CEPHALEXIN | [facility] | + + + + | 2023-02-14 00:00 | CEPHALEXIN | [facility] | + + + + | 2023-02-15 00:00 | CEPHALEXIN | [facility] | + + + + | 2023-02-16 00:00 | CEPHALEXIN | [facility] | + + + + | 2023-02-16 00:00 | CEPHALEXIN | [facility] | + + + + | 2020-07-15 00:00 | Erythromycin Base | [facility] | + + + + | 2020-07-15 00:00 | Erythromycin Base | [facility] | + + + + | 2020-07-15 00:00 | Erythromycin Base | [facility] | + + + + 2020-07-15 00:00 | Erythromycin Base | [facility] | + + + + | 2020-07-15 00:00 | Erythromycin Base | [facility] | + + + + | 2020-07-15 00:00 | Erythromycin Base | [facility] | + + + + | 2020-07-15 00:00 | Erythromycin Base | [facility] | + + + + | 2020-07-15 00:00 | Erythromycin Base | [facility] | + + + + 2020-07-15 00:00 | Erythromycin Base | [facility] | + + + + | 2020-07-15 00:00 | Erythromycin Base | [facility] | + + + + | 2022-10-13 00:00 | ONDANSETRON | [facility] | + + + + | 2022-02-03 00:00 | Oseltamivir Phosphate | [facility] | + + + + | 2022-02-05 00:00 | Oseltamivir Phosphate | [facility] | + + + + | 2022-02-06 00:00 | Oseltamivir Phosphate | [facility] | + + + + | 2022-02-06 00:00 | Oseltamivir Phosphate | [facility] | + + + + | 2022-02-07 00:00 | Oseltamivir Phosphate | [facility] | + + + + | 2022-02-10 00:00 | Oseltamivir Phosphate | [facility] | + + + + | 2022-02-16 00:00 | Oseltamivir Phosphate | [facility] | + + + + | 2022-03-14 00:00 | Oseltamivir Phosphate | [facility] | + + + + | 2022-03-19 00:00 | Oseltamivir Phosphate | [facility] | + + + + | 2022-03-22 00:00 | Oseltamivir Phosphate | [facility] | + + + + | 2022-10-13 00:00 | Oseltamivir Phosphate | [facility] | + + + + | 2022-10-31 00:00 | Oseltamivir Phosphate | [facility] | + + + + | 2022-11-21 00:00 | Oseltamivir Phosphate | [facility] | + + + + | 2022-11-22 00:00 | Oseltamivir Phosphate | [facility] | + + + + | 2022-11-23 00:00 | Oseltamivir Phosphate | [facility] | + + + + | 2022-12-16 00:00 | Oseltamivir Phosphate | [facility] | + + + + | 2022-12-21 00:00 | Oseltamivir Phosphate | [facility] | + + + + | 2023-01-01 00:00 | Oseltamivir Phosphate | [facility] | + + + + | 2023-01-10 00:00 | Oseltamivir Phosphate | [facility] | + + + + | 2023-01-27 00:00 | Oseltamivir Phosphate | [facility] | + + + + | 2023-01-29 00:00 | Oseltamivir Phosphate | [facility] | + + + + | 2023-02-14 00:00 | Oseltamivir Phosphate | [facility] | + + + + | 2023-02-15 00:00 | Oseltamivir Phosphate | [facility] | + + + + | 2023-02-16 00:00 | Oseltamivir Phosphate | [facility] | + + + + | 2023-02-16 00:00 | Oseltamivir Phosphate | [facility] | + + + + | 2022-02-03 00:00 | PIMOZIDE | [facility] | + + + + | 2022-02-05 00:00 | PIMOZIDE | [facility] | + + + + | 2022-02-06 00:00 | PIMOZIDE | [facility] | + + + + | 2022-02-06 00:00 | PIMOZIDE | [facility] | + + + + | 2022-02-07 00:00 | PIMOZIDE | [facility] | + + + + | 2022-02-10 00:00 | PIMOZIDE | [facility] | + + + + | 2022-02-16 00:00 | PIMOZIDE | [facility] | + + + + | 2022-03-14 00:00 | PIMOZIDE | [facility] | + + + + | 2022-03-19 00:00 | PIMOZIDE | [facility] | + + + + | 2022-03-22 00:00 | PIMOZIDE | [facility] | + + + + | 2022-10-13 00:00 | PIMOZIDE | [facility] | + + + + | 2022-10-31 00:00 | PIMOZIDE | [facility] | + + + + | 2022-11-21 00:00 | PIMOZIDE | [facility] | + + + + | 2022-11-22 00:00 | PIMOZIDE | [facility] | + + + + | 2022-11-23 00:00 | PIMOZIDE | [facility] | + + + + | 2022-12-16 00:00 | PIMOZIDE | [facility] | + + + + | 2022-12-21 00:00 | PIMOZIDE | [facility] | + + + + | 2023-01-01 00:00 | PIMOZIDE | [facility] | + + + + | 2023-01-10 00:00 | PIMOZIDE | [facility] | + + + + | 2023-01-27 00:00 | PIMOZIDE | [facility] | + + + + | 2023-01-29 00:00 | PIMOZIDE | [facility] | + + + + | 2023-02-14 00:00 | PIMOZIDE | [facility] | + + + + | 2023-02-15 00:00 | PIMOZIDE | [facility] | + + + + | 2023-02-16 00:00 | PIMOZIDE | [facility] | + + + + | 2023-02-16 00:00 | PIMOZIDE | [facility] | + + + + | 2017-06-18 00:00 | predniSONE | [facility] | + + + + | 2017-06-18 00:00 | predniSONE | [facility] | + + + + | 2017-06-18 00:00 | predniSONE | [facility] | + + + + | 2017-06-18 00:00 | predniSONE | [facility] | + + + + | 2017-06-18 00:00 | predniSONE | [facility] | + + + + | 2017-06-18 00:00 | predniSONE | [facility] | + + + + | 2017-06-18 00:00 | predniSONE | [facility] | + + + + | 2017-06-18 00:00 | predniSONE | [facility] | + + + + | 2017-06-18 00:00 | predniSONE | [facility] | + + + + | 2017-06-18 00:00 | predniSONE | [facility] | + + + + | 2020-01-23 00:00 | predniSONE | [facility] | + + + + | 2020-01-23 00:00 | predniSONE | [facility] | + + + + | 2020-01-23 00:00 | predniSONE | [facility] | + + + + | 2020-01-23 00:00 | predniSONE | [facility] | + + + + | 2020-01-23 00:00 | predniSONE | [facility] | + + + + | 2020-01-23 00:00 | predniSONE | [facility] | + + + + | 2020-01-23 00:00 | predniSONE | [facility] | + + + + | 2020-01-23 00:00 | predniSONE | [facility] | + + + + | 2020-01-23 00:00 | predniSONE | [facility] | + + + + | 2020-01-23 00:00 | predniSONE | [facility] | + + + + | 2022-03-22 00:00 | predniSONE | [facility] | + + + + | 2016-05-14 00:00 | HALOPERIDOL | [facility] | + + + + | 2016-05-14 00:00 | HALOPERIDOL | [facility] | + + + + | 2016-05-14 00:00 | HALOPERIDOL | [facility] | + + + + | 2016-05-14 00:00 | HALOPERIDOL | [facility] | + + + + | 2016-05-14 00:00 | HALOPERIDOL | [facility] | + + + + | 2016-05-14 00:00 | HALOPERIDOL | [facility] | + + + + | 2016-05-14 00:00 | HALOPERIDOL | [facility] | + + + + | 2016-05-14 00:00 | HALOPERIDOL | [facility] | + + + + | 2016-05-14 00:00 | HALOPERIDOL | [facility] | + + + + | 2016-05-14 00:00 | HALOPERIDOL | [facility] | + + + + | 2018-02-21 00:00 | HALOPERIDOL | [facility] | + + + + | 2018-02-21 00:00 | HALOPERIDOL | [facility] | + + + + | 2018-02-21 00:00 | HALOPERIDOL | [facility] | + + + + | 2018-02-21 00:00 | HALOPERIDOL | [facility] | + + + + | 2018-02-21 00:00 | HALOPERIDOL | [facility] | + + + + | 2018-02-21 00:00 | HALOPERIDOL | [facility] | + + + + | 2018-02-21 00:00 | HALOPERIDOL | [facility] | + + + + | 2018-02-21 00:00 | HALOPERIDOL | [facility] | + + + + | 2018-02-21 00:00 | HALOPERIDOL | [facility] | + + + + | 2018-02-21 00:00 | HALOPERIDOL | [facility] | + + + + | 2022-02-03 00:00 | HALOPERIDOL | [facility] | + + + + | 2022-02-05 00:00 | HALOPERIDOL | [facility] | + + + + | 2022-02-06 00:00 | HALOPERIDOL | [facility] | + + + + | 2022-02-06 00:00 | HALOPERIDOL | [facility] | + + + + | 2022-02-07 00:00 | HALOPERIDOL | [facility] | + + + + | 2022-02-10 00:00 | HALOPERIDOL | [facility] | + + + + | 2022-02-16 00:00 | HALOPERIDOL | [facility] | + + + + | 2022-03-14 00:00 | HALOPERIDOL | [facility] | + + + + | 2022-03-19 00:00 | HALOPERIDOL | [facility] | + + + + | 2022-03-22 00:00 | HALOPERIDOL | [facility] | + + + + | 2022-10-13 00:00 | HALOPERIDOL | [facility] | + + + + | 2022-10-31 00:00 | HALOPERIDOL | [facility] | + + + + | 2022-11-21 00:00 | HALOPERIDOL | [facility] | + + + + | 2022-11-22 00:00 | HALOPERIDOL | [facility] | + + + + | 2022-11-23 00:00 | HALOPERIDOL | [facility] | + + + + | 2022-12-16 00:00 | HALOPERIDOL | [facility] | + + + + | 2022-12-21 00:00 | HALOPERIDOL | [facility] | + + + + | 2023-01-01 00:00 | HALOPERIDOL | [facility] | + + + + | 2023-01-10 00:00 | HALOPERIDOL | [facility] | + + + + | 2023-01-27 00:00 | HALOPERIDOL | [facility] | + + + + | 2023-01-29 00:00 | HALOPERIDOL | [facility] | + + + + | 2023-02-14 00:00 | HALOPERIDOL | [facility] | + + + + | 2023-02-15 00:00 | HALOPERIDOL | [facility] | + + + + | 2023-02-16 00:00 | HALOPERIDOL | [facility] | + + + + | 2023-02-16 00:00 | HALOPERIDOL | [facility] | + + + + | 2021-07-02 00:00 | LISINOPRIL | [facility] | + + + + | 2021-07-02 00:00 | LISINOPRIL | [facility] | + + + + | 2021-07-02 00:00 | LISINOPRIL | [facility] | + + + + | 2021-07-02 00:00 | LISINOPRIL | [facility] | + + + + | 2021-07-02 00:00 | LISINOPRIL | [facility] | + + + + | 2021-07-02 00:00 | LISINOPRIL | [facility] | + + + + | 2021-07-02 00:00 | LISINOPRIL | [facility] | + + + + | 2021-07-02 00:00 | LISINOPRIL | [facility] | + + + + | 2021-07-02 00:00 | LISINOPRIL | [facility] | + + + + | 2021-07-02 00:00 | LISINOPRIL | [facility] | + + + + | 2023-01-01 00:00 | LISINOPRIL | [facility] | + + + + | 2023-01-01 00:00 | LISINOPRIL | [facility] | + + + + | 2023-01-01 00:00 | LISINOPRIL | [facility] | + + + + | 2023-01-01 00:00 | LISINOPRIL | [facility] | + + + + | 2023-01-01 00:00 | LISINOPRIL | [facility] | + + + + | 2023-01-10 00:00 | LISINOPRIL | [facility] | + + + + | 2023-01-27 00:00 | LISINOPRIL | [facility] | + + + + | 2023-01-29 00:00 | LISINOPRIL | [facility] | + + + + | 2023-02-14 00:00 | LISINOPRIL | [facility] | + + + + | 2023-02-15 00:00 | LISINOPRIL | [facility] | + + + + | 2023-02-16 00:00 | LISINOPRIL | [facility] | + + + + | 2023-02-16 00:00 | LISINOPRIL | [facility] | + + + + | 2023-01-01 00:00 | HYDROCHLOROTHIAZIDE | [facility] | + + + + | 2023-01-01 00:00 | HYDROCHLOROTHIAZIDE | [facility] | + + + + | 2023-01-01 00:00 | HYDROCHLOROTHIAZIDE | [facility] | + + + + | 2023-01-01 00:00 | HYDROCHLOROTHIAZIDE | [facility] | + + + + | 2023-01-01 00:00 | HYDROCHLOROTHIAZIDE | [facility] | + + + + | 2023-01-10 00:00 | HYDROCHLOROTHIAZIDE | [facility] | + + + + | 2023-01-27 00:00 | HYDROCHLOROTHIAZIDE | [facility] | + + + + | 2023-01-29 00:00 | HYDROCHLOROTHIAZIDE | [facility] | + + + + | 2023-02-14 00:00 | HYDROCHLOROTHIAZIDE | [facility] | + + + + | 2023-02-15 00:00 | HYDROCHLOROTHIAZIDE | [facility] | + + + + | 2023-02-16 00:00 | HYDROCHLOROTHIAZIDE | [facility] | + + + + | 2023-02-16 00:00 | HYDROCHLOROTHIAZIDE | [facility] | + + + + | 2022-11-22 00:00 | AMOXICILLIN/POTASSIUM CLAV | [facility] | | | | | + + + + | 2022-11-22 00:00 | AMOXICILLIN/POTASSIUM CLAV | [facility] | | | | | + + + + | 2017-09-28 00:00 | ALBUTEROL SULFATE | [facility] | + + + + | 2017-09-28 00:00 | ALBUTEROL SULFATE | [facility] | + + + + | 2017-09-28 00:00 | ALBUTEROL SULFATE | [facility] | + + + + | 2017-09-28 00:00 | ALBUTEROL SULFATE | [facility] | + + + + | 2017-09-28 00:00 | ALBUTEROL SULFATE | [facility] | + + + + | 2017-09-28 00:00 | ALBUTEROL SULFATE | [facility] | + + + + | 2017-09-28 00:00 | ALBUTEROL SULFATE | [facility] | + + + + | 2017-09-28 00:00 | ALBUTEROL SULFATE | [facility] | + + + + | 2017-09-28 00:00 | ALBUTEROL SULFATE | [facility] | + + + + | 2017-09-28 00:00 | ALBUTEROL SULFATE | [facility] [facility] | + + + + | 2017-09-07 00:00 | CLINDAMYCIN HCL | [facility] | + + + + | 2017-09-07 00:00 | CLINDAMYCIN HCL | [facility] | + + + + | 2017-09-07 00:00 | CLINDAMYCIN HCL | [facility] | + + + + | 2017-09-07 00:00 | CLINDAMYCIN HCL | [facility] | + + + + | 2017-09-07 00:00 | CLINDAMYCIN HCL | [facility] | + + + + | 2017-09-07 00:00 | CLINDAMYCIN HCL | [facility] | + + + + | 2017-09-07 00:00 | CLINDAMYCIN HCL | [facility] | + + + + | 2017-09-07 00:00 | CLINDAMYCIN HCL | [facility] | + + + + | 2017-09-07 00:00 | CLINDAMYCIN HCL | [facility] | + + + + | 2017-09-07 00:00 | CLINDAMYCIN HCL | [facility] | + + + + | 2020-06-16 00:00 | CLINDAMYCIN HCL | [facility] | + + + + | 2020-06-16 00:00 | CLINDAMYCIN HCL | [facility] | + + + + | 2020-06-16 00:00 | CLINDAMYCIN HCL | [facility] | + + + + | 2020-06-16 00:00 | CLINDAMYCIN HCL | [facility] | + + + + | 2020-06-16 00:00 | CLINDAMYCIN HCL | [facility] | + + + + | 2020-06-16 00:00 | CLINDAMYCIN HCL | [facility] | + + + + | 2020-06-16 00:00 | CLINDAMYCIN HCL | [facility] | + + + + | 2020-06-16 00:00 | CLINDAMYCIN HCL | [facility] | + + + + | 2020-06-16 00:00 | CLINDAMYCIN HCL | [facility] | + + + + | 2020-06-16 00:00 | CLINDAMYCIN HCL | [facility] | + + + + 2020-07-12 00:00 | CLINDAMYCIN HCL | [facility] | + + + + | 2020-07-12 00:00 | CLINDAMYCIN HCL | [facility] | + + + + | 2020-07-12 00:00 | CLINDAMYCIN HCL | [facility] | + + + + | 2020-07-12 00:00 | CLINDAMYCIN HCL | [facility] | + + + + | 2020-07-12 00:00 | CLINDAMYCIN HCL | [facility] | + + + + 2020-07-12 00:00 | CLINDAMYCIN HCL | [facility] | + + + + 2020-07-12 00:00 | CLINDAMYCIN HCL | [facility] | + + + + | 2020-07-12 00:00 | CLINDAMYCIN HCL | [facility] | + + + + | 2020-07-12 00:00 | CLINDAMYCIN HCL | [facility] | + + + + | 2020-07-12 00:00 | CLINDAMYCIN HCL | [facility] | + + + + | 2022-11-23 00:00 | CLINDAMYCIN HCL | [facility] | + + + + | 2022-11-23 00:00 | CLINDAMYCIN HCL | [facility] | + + + + | 2017-08-07 00:00 | METHYLPREDNISOLONE | [facility] | + + + + | 2017-08-07 00:00 | METHYLPREDNISOLONE | [facility] | + + + + | 2017-08-07 00:00 | METHYLPREDNISOLONE | [facility] | + + + + | 2017-08-07 00:00 | METHYLPREDNISOLONE | [facility] | + + + + | 2017-08-07 00:00 | METHYLPREDNISOLONE | [facility] | + + + + | 2017-08-07 00:00 | METHYLPREDNISOLONE | [facility] | + + + + | 2017-08-07 00:00 | METHYLPREDNISOLONE | [facility] | + + + + | 2017-08-07 00:00 | METHYLPREDNISOLONE | [facility] | + + + + | 2017-08-07 00:00 | METHYLPREDNISOLONE | [facility] | + + + + | 2017-08-07 00:00 | METHYLPREDNISOLONE | [facility] | + + + + | 2021-08-27 00:00 | Chlorhexidine Gluconate | [facility] | + + + + | 2021-08-27 00:00 | Chlorhexidine Gluconate | [facility] | + + + + | 2021-08-27 00:00 | Chlorhexidine Gluconate | [facility] | + + + + | 2021-08-27 00:00 | Chlorhexidine Gluconate | [facility] | + + + + | 2021-08-27 00:00 | Chlorhexidine Gluconate | [facility] | + + + + | 2021-08-27 00:00 | Chlorhexidine Gluconate | [facility] | + + + + | 2021-08-27 00:00 | Chlorhexidine Gluconate | [facility] | + + + + | 2021-08-27 00:00 | Chlorhexidine Gluconate | [facility] | + + + + | 2021-08-27 00:00 | Chlorhexidine Gluconate | [facility] | + + + + | 2021-08-27 00:00 | Chlorhexidine Gluconate | [facility] | + + + + | 2014-02-25 00:00 | | [facility] | | | SULFAMETHOXAZOLE/TRIMETHOPR | | | | IM DS | | + + + + | 2014-02-25 00:00 | | [facility] | | | SULFAMETHOXAZOLE/TRIMETHOPR | | | | IM DS | | + + + + | 2014-02-25 00:00 | | [facility] | | | SULFAMETHOXAZOLE/TRIMETHOPR | | | | IM DS | | + + + + | 2014-02-25 00:00 | | [facility] | | | SULFAMETHOXAZOLE/TRIMETHOPR | | | | IM DS | | + + + + | 2014-02-25 00:00 | | [facility] | | | SULFAMETHOXAZOLE/TRIMETHOPR | | | | IM DS | | + + + + | 2014-02-25 00:00 | | [facility] | | | SULFAMETHOXAZOLE/TRIMETHOPR | | | | IM DS | | + + + + | 2014-02-25 00:00 | | [facility] | | | SULFAMETHOXAZOLE/TRIMETHOPR | | | | IM DS | | + + + + | 2014-02-25 00:00 | | [facility] | | | SULFAMETHOXAZOLE/TRIMETHOPR | | | | IM DS | | + + + + | 2014-02-25 00:00 | | [facility] | | | SULFAMETHOXAZOLE/TRIMETHOPR | | | | IM DS | | + + + + | 2014-02-25 00:00 | | [facility] | | | SULFAMETHOXAZOLE/TRIMETHOPR | | | | IM DS | | + + + + | 2017-10-08 00:00 | | [facility] | | | SULFAMETHOXAZOLE/TRIMETHOPR | | | | IM DS | | + + + + | 2017-10-08 00:00 | | [facility] | | | SULFAMETHOXAZOLE/TRIMETHOPR | | | | IM DS | | + + + + | 2017-10-08 00:00 | | [facility] | | | SULFAMETHOXAZOLE/TRIMETHOPR | | | | IM DS | | + + + + | 2017-10-08 00:00 | | [facility] | | | SULFAMETHOXAZOLE/TRIMETHOPR | | | | IM DS | | + + + + | 2017-10-08 00:00 | | [facility] | | | SULFAMETHOXAZOLE/TRIMETHOPR | | | | IM DS | | + + + + | 2017-10-08 00:00 | | [facility] | | | SULFAMETHOXAZOLE/TRIMETHOPR | | | | IM DS | | + + + + | 2017-10-08 00:00 | | [facility] | | | SULFAMETHOXAZOLE/TRIMETHOPR | | | | IM DS | | + + + + | 2017-10-08 00:00 | | [facility] | | | SULFAMETHOXAZOLE/TRIMETHOPR | | | | IM DS | | + + + + | 2017-10-08 00:00 | | [facility] | | | SULFAMETHOXAZOLE/TRIMETHOPR | | | | IM DS | | + + + + | 2017-10-08 00:00 | | [facility] | | | SULFAMETHOXAZOLE/TRIMETHOPR | | | | IM DS | | + + + + | 2022-01-31 00:00 | | [facility] | | | SULFAMETHOXAZOLE/TRIMETHOPR | | | | IM DS | | + + + + | 2017-06-18 00:00 | ALBUTEROL SULFATE | [facility] | + + + + | 2017-06-18 00:00 | ALBUTEROL SULFATE | [facility] | + + + + | 2017-06-18 00:00 | ALBUTEROL SULFATE | [facility] | + + + + | 2017-06-18 00:00 | ALBUTEROL SULFATE | [facility] | + + + + | 2017-06-18 00:00 | ALBUTEROL SULFATE | [facility] | + + + + | 2017-06-18 00:00 | ALBUTEROL SULFATE | [facility] | + + + + | 2017-06-18 00:00 | ALBUTEROL SULFATE | [facility] | + + + + | 2017-06-18 00:00 | ALBUTEROL SULFATE | [facility] | + + + + | 2017-06-18 00:00 | ALBUTEROL SULFATE | [facility] | + + + + | 2017-06-18 00:00 | ALBUTEROL SULFATE | [facility] | + + + + | 2017-08-07 00:00 | ALBUTEROL SULFATE | [facility] | + + + + | 2017-08-07 00:00 | ALBUTEROL SULFATE | [facility] | + + + + | 2017-08-07 00:00 | ALBUTEROL SULFATE | [facility] | + + + + | 2017-08-07 00:00 | ALBUTEROL SULFATE | [facility] | + + + + | 2017-08-07 00:00 | ALBUTEROL SULFATE | [facility] | + + + + | 2017-08-07 00:00 | ALBUTEROL SULFATE | [facility] | + + + + | 2017-08-07 00:00 | ALBUTEROL SULFATE | [facility] | + + + + | 2017-08-07 00:00 | ALBUTEROL SULFATE | [facility] | + + + + | 2017-08-07 00:00 | ALBUTEROL SULFATE | [facility] | + + + + | 2017-08-07 00:00 | ALBUTEROL SULFATE | [facility] | + + + + | 2022-02-03 00:00 | ONDANSETRON | [facility] | + + + + | 2022-02-05 00:00 | ONDANSETRON | [facility] | + + + + | 2022-02-06 00:00 | ONDANSETRON | [facility] | + + + + | 2022-02-06 00:00 | ONDANSETRON | [facility] | + + + + | 2022-02-07 00:00 | ONDANSETRON | [facility] | + + + + | 2022-02-10 00:00 | ONDANSETRON | [facility] | + + + + | 2022-02-16 00:00 | ONDANSETRON | [facility] | + + + + | 2022-03-14 00:00 | ONDANSETRON | [facility] | + + + + | 2022-03-19 00:00 | ONDANSETRON | [facility] | + + + + | 2022-03-22 00:00 | ONDANSETRON | [facility] | + + + + | 2022-10-13 00:00 | ONDANSETRON | [facility] | + + + + | 2022-10-31 00:00 | ONDANSETRON | [facility] | + + + + | 2022-11-21 00:00 | ONDANSETRON | [facility] | + + + + | 2022-11-22 00:00 | ONDANSETRON | [facility] | + + + + | 2022-11-23 00:00 | ONDANSETRON | [facility] | + + + + | 2022-12-16 00:00 | ONDANSETRON | [facility] | + + + + | 2022-12-21 00:00 | ONDANSETRON | [facility] | + + + + | 2023-01-01 00:00 | ONDANSETRON | [facility] | + + + + | 2023-01-10 00:00 | ONDANSETRON | [facility] | + + + + | 2023-01-27 00:00 | ONDANSETRON | [facility] | + + + + | 2023-01-29 00:00 | ONDANSETRON | [facility] | + + + + | 2023-02-14 00:00 | ONDANSETRON | [facility] | + + + + | 2023-02-15 00:00 | ONDANSETRON | [facility] | + + + + | 2023-02-16 00:00 | ONDANSETRON | [facility] | + + + + | 2023-02-16 00:00 | ONDANSETRON | [facility] | + + + + | 2020-12-15 00:00 | MECLIZINE HCL | [facility] | + + + + | 2020-12-15 00:00 | MECLIZINE HCL | [facility] | + + + + | 2020-12-15 00:00 | MECLIZINE HCL | [facility] | + + + + | 2020-12-15 00:00 | MECLIZINE HCL | [facility] | + + + + | 2020-12-15 00:00 | MECLIZINE HCL | [facility] | + + + + | 2020-12-15 00:00 | MECLIZINE HCL | [facility] | + + + + | 2020-12-15 00:00 | MECLIZINE HCL | [facility] | + + + + | 2020-12-15 00:00 | MECLIZINE HCL | [facility] | + + + + | 2020-12-15 00:00 | MECLIZINE HCL | [facility] | + + + + | 2020-12-15 00:00 | MECLIZINE HCL | [facility] | + + + + Problems + + + + | date | description | facility | + + + + | 2016-05-14 00:00 | Encounter for medication | [facility] | | | refill | | + + + + | 2016-05-14 00:00 | Encounter for medication | [facility] | | | refill | | + + + + | 2016-05-14 00:00 | Encounter for medication | [facility] | | | refill | | + + + + | 2016-05-14 00:00 | Encounter for medication | [facility] | | | refill | | + + + + | 2016-05-14 00:00 | Encounter for medication | [facility] | | | refill | | + + + + | 2016-05-14 00:00 | Encounter for medication | [facility] | | | refill | | + + + + | 2016-05-14 00:00 | Encounter for medication | [facility] | | | refill | | + + + + | 2016-05-14 00:00 | Encounter for medication | [facility] | | | refill | | + + + + | 2016-05-14 00:00 | Encounter for medication | [facility] | | | refill | | + + + + | 2016-05-14 00:00 | Encounter for medication | [facility] | | | refill | | + + + + | 2016-08-19 00:00 | Encounter for medical | [facility] | | | screening examination | | + + + + | 2016-08-19 00:00 | Encounter for medical | [facility] | | | screening examination | | + + + + | 2016-08-19 00:00 | Encounter for medical | [facility] | | | screening examination | | + + + + | 2016-08-19 00:00 | Encounter for medical | [facility] | | | screening examination | | + + + + | 2016-08-19 00:00 | Encounter for medical | [facility] | | | screening examination | | + + + + | 2016-08-19 00:00 | Encounter for medical | [facility] | | | screening examination | | + + + + | 2016-08-19 00:00 | Encounter for medical | [facility] | | | screening examination | | + + + + | 2016-08-19 00:00 | Encounter for medical [facility] | | | screening examination | | + + + + | 2016-08-19 00:00 | Encounter for medical [facility] | | | screening examination | | + + + + | 2016-08-19 00:00 | Encounter for medical [facility] | | | screening examination | | + + + + | 2016-10-10 00:00 | Constipation | [facility] | + + + + | 2016-10-10 00:00 | Constipation | [facility] | + + + + | 2016-10-10 00:00 | Constipation | [facility] | + + + + | 2016-10-10 00:00 | Constipation | [facility] | + + + + | 2016-10-10 00:00 | Constipation | [facility] | + + + + | 2016-10-10 00:00 | Constipation | [facility] | + + + + | 2016-10-10 00:00 | Constipation | [facility] | + + + + | 2016-10-10 00:00 | Constipation | [facility] | + + + + | 2016-10-10 00:00 | Constipation | [facility] | + + + + | 2016-10-10 00:00 | Constipation | [facility] | + + + + | 2016-10-10 00:00 | Nonspecific abdominal pain | [facility] | | | | | + + + + | 2016-10-10 00:00 | Nonspecific abdominal pain | [facility] | | | | | + + + + | 2016-10-10 00:00 | Nonspecific abdominal pain | [facility] | | | | | + + + + | 2016-10-10 00:00 | Nonspecific abdominal pain | [facility] | | | | | + + + + | 2016-10-10 00:00 | Nonspecific abdominal pain | [facility] | | | | | + + + + | 2016-10-10 00:00 | Nonspecific abdominal pain | [facility] | | | | | + + + + | 2016-10-10 00:00 | Nonspecific abdominal pain | [facility] | | | | | + + + + | 2016-10-10 00:00 | Nonspecific abdominal pain | [facility] | | | | | + + + + | 2016-10-10 00:00 | Nonspecific abdominal pain | [facility] | | | | | + + + + | 2016-10-10 00:00 | Nonspecific abdominal pain | [facility] | | | | | + + + + | 2016-10-31 00:00 | Methamphetamine abuse | [facility] | + + + + | 2016-10-31 00:00 | Methamphetamine abuse | [facility] | + + + + | 2016-10-31 00:00 | Methamphetamine abuse | [facility] | + + + + | 2016-10-31 00:00 | Methamphetamine abuse | [facility] | + + + + | 2016-10-31 00:00 | Methamphetamine abuse | [facility] | + + + + | 2016-10-31 00:00 | Methamphetamine abuse | [facility] | + + + + | 2016-10-31 00:00 | Methamphetamine abuse | [facility] | + + + + | 2016-10-31 00:00 | Methamphetamine abuse | [facility] | + + + + | 2016-10-31 00:00 | Methamphetamine abuse | [facility] | + + + + | 2016-10-31 00:00 | Methamphetamine abuse | [facility] | + + + + | 2016-10-31 00:00 | Chronic abdominal pain | [facility] | + + + + | 2016-10-31 00:00 | Chronic abdominal pain | [facility] | + + + + | 2016-10-31 00:00 | Chronic abdominal pain | [facility] | + + + + | 2016-10-31 00:00 | Chronic abdominal pain | [facility] | + + + + | 2016-10-31 00:00 | Chronic abdominal pain | [facility] | + + + + | 2016-10-31 00:00 | Chronic abdominal pain | [facility] | + + + + | 2016-10-31 00:00 | Chronic abdominal pain | [facility] | + + + + | 2016-10-31 00:00 | Chronic abdominal pain | [facility] | + + + + | 2016-10-31 00:00 | Chronic abdominal pain | [facility] | + + + + | 2016-10-31 00:00 | Chronic abdominal pain | [facility] | + + + + | 2016-10-31 00:00 | Weight loss | [facility] | + + + + | 2016-10-31 00:00 | Weight loss | [facility] | + + + + | 2016-10-31 00:00 | Weight loss | [facility] | + + + + | 2016-10-31 00:00 | Weight loss | [facility] | + + + + | 2016-10-31 00:00 | Weight loss | [facility] | + + + + | 2016-10-31 00:00 | Weight loss | [facility] | + + + + | 2016-10-31 00:00 | Weight loss | [facility] | + + + + | 2016-10-31 00:00 | Weight loss | [facility] | + + + + | 2016-10-31 00:00 | Weight loss | [facility] | + + + + | 2016-10-31 00:00 | Weight loss | [facility] | + + + + | 2016-11-17 00:00 | Cellulitis | [facility] | + + + + | 2016-11-17 00:00 | Cellulitis | [facility] | + + + + | 2016-11-17 00:00 | Cellulitis | [facility] | + + + + | 2016-11-17 00:00 | Cellulitis | [facility] | + + + + | 2016-11-17 00:00 | Cellulitis | [facility] | + + + + | 2016-11-17 00:00 | Cellulitis | [facility] | + + + + | 2016-11-17 00:00 | Cellulitis | [facility] | + + + + | 2016-11-17 00:00 | Cellulitis | [facility] | + + + + | 2016-11-17 00:00 | Cellulitis | [facility] | + + + + | 2016-11-17 00:00 | Cellulitis | [facility] | + + + + | 2017-01-04 00:00 | 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 | | + + + + | 2017-01-04 00:00 | 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 | | + + + + | 2017-01-04 00:00 | 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 | | + + + + | 2017-01-04 00:00 | 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 | | + + + + | 2017-01-04 00:00 | 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 | | + + + + | 2017-01-04 00:00 | 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 | | + + + + | 2017-01-04 00:00 | 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 | | + + + + | 2017-01-04 00:00 | 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 | | + + + + | 2017-01-04 00:00 | 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 | | + + + + | 2017-01-04 00:00 | 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 | | + + + + | 2017-06-09 00:00 | Patient left without being | [facility] | | | seen | | + + + + | 2017-06-09 00:00 | Patient left without being | [facility] | | | seen | | + + + + | 2017-06-09 00:00 | Patient left without being | [facility] | | | seen | | + + + + | 2017-06-09 00:00 | Patient left without being | [facility] | | | seen | | + + + + | 2017-06-09 00:00 | Patient left without being | [facility] | | | seen | | + + + + | 2017-06-09 00:00 | Patient left without being | [facility] | | | seen | | + + + + | 2017-06-09 00:00 | Patient left without being | [facility] | | | seen | | + + + + | 2017-06-09 00:00 | Patient left without being | [facility] | | | seen | | + + + + | 2017-06-09 00:00 | Patient left without being | [facility] | | | seen | | + + + + | 2017-06-09 00:00 | Patient left without being | [facility] | | | seen | | + + + + | 2017-06-18 00:00 | Obstructive chronic | [facility] | | | bronchitis with | | | | exacerbation | | + + + + | 2017-06-18 00:00 | Obstructive chronic | [facility] | | | bronchitis with | | | | exacerbation | | + + + + | 2017-06-18 00:00 | Obstructive chronic | [facility] | | | bronchitis with | | | | exacerbation | | + + + + | 2017-06-18 00:00 | Obstructive chronic | [facility] | | | bronchitis with | | | | exacerbation | | + + + + | 2017-06-18 00:00 | Obstructive chronic | [facility] | | | bronchitis with | | | | exacerbation | | + + + + | 2017-06-18 00:00 | Obstructive chronic | [facility] | | | bronchitis with | | | | exacerbation | | + + + + | 2017-06-18 00:00 | Obstructive chronic | [facility] | | | bronchitis with | | | | exacerbation | | + + + + | 2017-06-18 00:00 | Obstructive chronic | [facility] | | | bronchitis with | | | | exacerbation | | + + + + | 2017-06-18 00:00 | Obstructive chronic | [facility] | | | bronchitis with | | | | exacerbation | | + + + + | 2017-06-18 00:00 | Obstructive chronic | [facility] | | | bronchitis with | | | | exacerbation | | + + + + | 2017-06-18 00:00 | Dyspnea on exertion | [facility] | + + + + | 2017-06-18 00:00 | Dyspnea on exertion | [facility] | + + + + | 2017-06-18 00:00 | Dyspnea on exertion | [facility] | + + + + | 2017-06-18 00:00 | Dyspnea on exertion | [facility] | + + + + | 2017-06-18 00:00 | Dyspnea on exertion | [facility] | + + + + | 2017-06-18 00:00 | Dyspnea on exertion | [facility] | + + + + | 2017-06-18 00:00 | Dyspnea on exertion | [facility] | + + + + | 2017-06-18 00:00 | Dyspnea on exertion | [facility] | + + + + | 2017-06-18 00:00 | Dyspnea on exertion | [facility] | + + + + | 2017-06-18 00:00 | Dyspnea on exertion | [facility] | + + + + | 2017-08-07 00:00 | Bronchitis | [facility] | + + + + | 2017-08-07 00:00 | Bronchitis | [facility] | + + + + | 2017-08-07 00:00 | Bronchitis | [facility] | + + + + | 2017-08-07 00:00 | Bronchitis | [facility] | + + + + | 2017-08-07 00:00 | Bronchitis | [facility] | + + + + | 2017-08-07 00:00 | Bronchitis | [facility] | + + + + | 2017-08-07 00:00 | Bronchitis | [facility] | + + + + | 2017-08-07 00:00 | Bronchitis | [facility] | + + + + | 2017-08-07 00:00 | Bronchitis | [facility] | + + + + | 2017-08-07 00:00 | Bronchitis | [facility] | + + + + | 2017-09-07 00:00 | Paronychia of finger of [facility] | | | right hand | | + + + + | 2017-09-07 00:00 | Paronychia of finger of [facility] | | | right hand | | + + + + | 2017-09-07 00:00 | Paronychia of finger of [facility] | | | right hand | | + + + + | 2017-09-07 00:00 | Paronychia of finger of [facility] | | | right hand | | + + + + | 2017-09-07 00:00 | Paronychia of finger of [facility] | | | right hand | | + + + + | 2017-09-07 00:00 | Paronychia of finger of [facility] | | | right hand | | + + + + | 2017-09-07 00:00 | Paronychia of finger of [facility] | | | right hand | | + + + + | 2017-09-07 00:00 | Paronychia of finger of [facility] | | | right hand | | + + + + | 2017-09-07 00:00 | Paronychia of finger of [facility] | | | right hand | | + + + + | 2017-09-07 00:00 | Paronychia of finger of | [facility] | | | right hand | | + + + + | 2017-09-28 00:00 | Upper respiratory tract | [facility] | | | infection | | + + + + | 2017-09-28 00:00 | Upper respiratory tract | [facility] | | | infection | | + + + + | 2017-09-28 00:00 | Upper respiratory tract | [facility] | | | infection | | + + + + | 2017-09-28 00:00 | Upper respiratory tract | [facility] | | | infection | | + + + + | 2017-09-28 00:00 | Upper respiratory tract | [facility] | | | infection | | + + + + | 2017-09-28 00:00 | Upper respiratory tract | [facility] | | | infection | | + + + + | 2017-09-28 00:00 | Upper respiratory tract | [facility] | | | infection | | + + + + | 2017-09-28 00:00 | Upper respiratory tract | [facility] | | | infection | | + + + + | 2017-09-28 00:00 | Upper respiratory tract | [facility] | | | infection | | + + + + | 2017-09-28 00:00 | Upper respiratory tract | [facility] | | | infection | | + + + + | 2019-01-27 00:00 | Cellulitis of lower | [facility] | | | extremity | | + + + + | 2019-01-27 00:00 | Cellulitis of lower | [facility] | | | extremity | | + + + + | 2019-01-27 00:00 | Cellulitis of lower | [facility] | | | extremity | | + + + + | 2019-01-27 00:00 | Cellulitis of lower | [facility] | | | extremity | | + + + + | 2019-01-27 00:00 | Cellulitis of lower | [facility] | | | extremity | | + + + + | 2019-01-27 00:00 | Cellulitis of lower | [facility] | | | extremity | | + + + + | 2019-01-27 00:00 | Cellulitis of lower | [facility] | | | extremity | | + + + + | 2019-01-27 00:00 | Cellulitis of lower | [facility] | | | extremity | | + + + + | 2019-01-27 00:00 | Cellulitis of lower | [facility] | | | extremity | | + + + + | 2019-01-27 00:00 | Cellulitis of lower | [facility] | | | extremity | | + + + + | 2020-01-23 00:00 | Gout | [facility] | + + + + | 2020-01-23 00:00 | Gout | [facility] | + + + + | 2020-01-23 00:00 | Gout | [facility] | + + + + | 2020-01-23 00:00 | Gout | [facility] | + + + + | 2020-01-23 00:00 | Gout | [facility] | + + + + | 2020-01-23 00:00 | Gout | [facility] | + + + + | 2020-01-23 00:00 | Gout | [facility] | + + + + | 2020-01-23 00:00 | Gout | [facility] | + + + + | 2020-01-23 00:00 | Gout | [facility] | + + + + | 2020-01-23 00:00 | Gout | [facility] | + + + + | 2020-05-09 00:00 | Rectal fissure | [facility] | + + + + | 2020-05-09 00:00 | Rectal fissure | [facility] | + + + + 2020-05-09 00:00 | Rectal fissure | [facility] | + + + + | 2020-05-09 00:00 | Rectal fissure | [facility] | + + + + | 2020-05-09 00:00 | Rectal fissure | [facility] | + + + + | 2020-05-09 00:00 | Rectal fissure | [facility] | + + + + | 2020-05-09 00:00 | Rectal fissure | [facility] | + + + + | 2020-05-09 00:00 | Rectal fissure | [facility] | + + + + | 2020-05-09 00:00 | Rectal fissure | [facility] | + + + + | 2020-05-09 00:00 | Rectal fissure | [facility] | + + + + 2020-07-15 00:00 | Cannabis abuse | [facility] | + + + + | 2020-07-15 00:00 | Cannabis abuse | [facility] | + + + + | 2020-07-15 00:00 | Cannabis abuse | [facility] | + + + + | 2020-07-15 00:00 | Cannabis abuse | [facility] | + + + + | 2020-07-15 00:00 | Cannabis abuse | [facility] | + + + + 2020-07-15 00:00 | Cannabis abuse | [facility] | + + + + 2020-07-15 00:00 | Cannabis abuse | [facility] | + + + + | 2020-07-15 00:00 | Cannabis abuse | [facility] | + + + + | 2020-07-15 00:00 | Cannabis abuse | [facility] | + + + + | 2020-07-15 00:00 | Cannabis abuse | [facility] | + + + + 2020-07-15 00:00 | Acute kidney injury | [facility] | + + + + 2020-07-15 00:00 | Acute kidney injury | [facility] | + + + + | 2020-07-15 00:00 | Acute kidney injury | [facility] | + + + + | 2020-07-15 00:00 | Acute kidney injury | [facility] | + + + + | 2020-07-15 00:00 | Acute kidney injury | [facility] | + + + + 2020-07-15 00:00 | Acute kidney injury | [facility] | + + + + 2020-07-15 00:00 | Acute kidney injury | [facility] | + + + + | 2020-07-15 00:00 | Acute kidney injury | [facility] | + + + + | 2020-07-15 00:00 | Acute kidney injury | [facility] | + + + + | 2020-07-15 00:00 | Acute kidney injury | [facility] | + + + + 2020-07-15 00:00 | Elevated transaminase | [facility] | | | measurement | | + + + + 2020-07-15 00:00 | Elevated transaminase | [facility] | | | measurement | | + + + + | 2020-07-15 00:00 | Elevated transaminase | [facility] | | | measurement | | + + + + | 2020-07-15 00:00 | Elevated transaminase | [facility] | | | measurement | | + + + + | 2020-07-15 00:00 | [facility]vated transaminase | [facility] | | | measurement | | + + + + | 2020-07-15 00:00 | Elevated transaminase | [facility] | | | measurement | | + + + + | 2020-07-15 00:00 | Elevated transaminase | [facility] | | | measurement | | + + + + | 2020-07-15 00:00 | Elevated transaminase | [facility] | | | measurement | | + + + + | 2020-07-15 00:00 | Elevated transaminase | [facility] | | | measurement | | + + + + | 2020-07-15 00:00 | Elevated transaminase | [facility] | | | measurement | | + + + + | 2020-07-15 00:00 | Abrasion of left cornea | [facility] | + + + + | 2020-07-15 00:00 | Abrasion of left cornea | [facility] | + + + + | 2020-07-15 00:00 | Abrasion of left cornea | [facility] | + + + + | 2020-07-15 00:00 | Abrasion of left cornea | [facility] | + + + + 2020-07-15 00:00 | Abrasion of left cornea | [facility] | + + + + | 2020-07-15 00:00 | Abrasion of left cornea | [facility] | + + + + | 2020-07-15 00:00 | Abrasion of left cornea | [facility] | + + + + | 2020-07-15 00:00 | Abrasion of left cornea | [facility] | + + + + | 2020-07-15 00:00 | Abrasion of left cornea | [facility] | + + + + | 2020-07-15 00:00 | Abrasion of left cornea | [facility] | + + + + | 2020-09-17 00:00 | 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[facility] | + + + + | 2020-09-17 00:00 | 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[facility] | + + + + | 2020-09-17 00:00 | 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[facility] | + + + + | 2020-09-17 00:00 | 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[facility] | + + + + | 2020-09-17 00:00 | 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[facility] | + + + + | 2020-09-17 00:00 | 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[facility] | + + + + | 2020-09-17 00:00 | 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[facility] | + + + + | 2020-09-17 00:00 | 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[facility] | + + + + | 2020-09-17 00:00 | 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[facility] | + + + + | 2020-09-17 00:00 | 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[facility] | + + + + | 2020-11-13 00:00 | Drug use | [facility] | + + + + | 2020-11-13 00:00 | Drug use | [facility] | + + + + | 2020-11-13 00:00 | Drug use | [facility] | + + + + | 2020-11-13 00:00 | Drug use | [facility] | + + + + | 2020-11-13 00:00 | Drug use | [facility] | + + + + | 2020-11-13 00:00 | Drug use | [facility] | + + + + | 2020-11-13 00:00 | Drug use | [facility] | + + + + | 2020-11-13 00:00 | Drug use | [facility] | + + + + | 2020-11-13 00:00 | Drug use | [facility] | + + + + | 2020-11-13 00:00 | Drug use | [facility] | + + + + | 2020-12-15 00:00 | Vertigo | [facility] | + + + + | 2020-12-15 00:00 | Vertigo | [facility] | + + + + | 2020-12-15 00:00 | Vertigo | [facility] | + + + + | 2020-12-15 00:00 | Vertigo | [facility] | + + + + | 2020-12-15 00:00 | Vertigo | [facility] | + + + + | 2020-12-15 00:00 | Vertigo | [facility] | + + + + | 2020-12-15 00:00 | Vertigo | [facility] | + + + + | 2020-12-15 00:00 | Vertigo | [facility] | + + + + | 2020-12-15 00:00 | Vertigo | [facility] | + + + + | 2020-12-15 00:00 | Vertigo | [facility] | + + + + | 2021-02-08 00:00 | Eczema of both hands | [facility] | + + + + | 2021-02-08 00:00 | Eczema of both hands | [facility] | + + + + | 2021-02-08 00:00 | Eczema of both hands | [facility] | + + + + | 2021-02-08 00:00 | Eczema of both hands | [facility] | + + + + | 2021-02-08 00:00 | Eczema of both hands | [facility] | + + + + | 2021-02-08 00:00 | Eczema of both hands | [facility] | + + + + | 2021-02-08 00:00 | Eczema of both hands | [facility] | + + + + | 2021-02-08 00:00 | Eczema of both hands | [facility] | + + + + | 2021-02-08 00:00 | Eczema of both hands | [facility] | + + + + | 2021-02-08 00:00 | Eczema of both hands | [facility] | + + + + | 2021-04-03 00:00 | Dehydration | [facility] | + + + + | 2021-04-03 00:00 | Dehydration | [facility] | + + + + | 2021-04-03 00:00 | Dehydration | [facility] | + + + + | 2021-04-03 00:00 | Dehydration | [facility] | + + + + | 2021-04-03 00:00 | Dehydration | [facility] | + + + + | 2021-04-03 00:00 | Dehydration | [facility] | + + + + | 2021-04-03 00:00 | Dehydration | [facility] | + + + + | 2021-04-03 00:00 | Dehydration | [facility] | + + + + | 2021-04-03 00:00 | Dehydration | [facility] | + + + + | 2021-04-03 00:00 | Dehydration | [facility] | + + + + | 2021-04-03 00:00 | Enteritis | [facility] | + + + + | 2021-04-03 00:00 | Enteritis | [facility] | + + + + | 2021-04-03 00:00 | Enteritis | [facility] | + + + + | 2021-04-03 00:00 | Enteritis | [facility] | + + + + | 2021-04-03 00:00 | Enteritis | [facility] | + + + + | 2021-04-03 00:00 | Enteritis | [facility] | + + + + | 2021-04-03 00:00 | Enteritis | [facility] | + + + + | 2021-04-03 00:00 | Enteritis | [facility] | + + + + | 2021-04-03 00:00 | Enteritis | [facility] | + + + + | 2021-04-03 00:00 | Enteritis | [facility] | + + + + | 2021 00:00 | Parasite not detected | [facility] | + + + + | 2021 00:00 | Parasite not detected | [facility] | + + + + | 2021 00:00 | Parasite not detected | [facility] | + + + + | 2021 00:00 | Parasite not detected | [facility] | + + + + | 2021 00:00 | Parasite not detected | [facility] | + + + + | 2021 00:00 | Parasite not detected | [facility] | + + + + | 2021 00:00 | Parasite not detected | [facility] | + + + + | 2021 00:00 | Parasite not detected | [facility] | + + + + | 2021 00:00 | Parasite not detected | [facility] | + + + + | 2021 00:00 | Parasite not detected | [facility] | + + + + | 2021 00:00 | Pain of hand | [facility] | + + + + | 2021 00:00 | Pain of hand | [facility] | + + + + | 2021 00:00 | Pain of hand | [facility] | + + + + | 2021 00:00 | Pain of hand | [facility] | + + + + | 2021 00:00 | Pain of hand | [facility] | + + + + | 2021 00:00 | Pain of hand | [facility] | + + + + | 2021 00:00 | Pain of hand | [facility] | + + + + | 2021 00:00 | Pain of hand | [facility] | + + + + | 2021 00:00 | Pain of hand | [facility] | + + + + | 2021 00:00 | Pain of hand | [facility] | + + + + | 2021-05-18 00:00 | Viral infection | [facility] | + + + + | 2021-05-18 00:00 | Viral infection | [facility] | + + + + | 2021-05-18 00:00 | Viral infection | [facility] | + + + + | 2021-05-18 00:00 | Viral infection | [facility] | + + + + | 2021-05-18 00:00 | Viral infection | [facility] | + + + + | 2021-05-18 00:00 | Viral infection | [facility] | + + + + | 2021-05-18 00:00 | Viral infection | [facility] | + + + + | 2021-05-18 00:00 | Viral infection | [facility] | + + + + | 2021-05-18 00:00 | Viral infection | [facility] | + + + + | 2021-05-18 00:00 | Viral infection | [facility] | + + + + | 2021-07-02 00:00 | Acute bronchitis | [facility] | + + + + | 2021-07-02 00:00 | Acute bronchitis | [facility] | + + + + | 2021-07-02 00:00 | Acute bronchitis | [facility] | + + + + | 2021-07-02 00:00 | Acute bronchitis | [facility] | + + + + | 2021-07-02 00:00 | Acute bronchitis | [facility] | + + + + | 2021-07-02 00:00 | Acute bronchitis | [facility] | + + + + | 2021-07-02 00:00 | Acute bronchitis | [facility] | + + + + | 2021-07-02 00:00 | Acute bronchitis | [facility] | + + + + | 2021-07-02 00:00 | Acute bronchitis | [facility] | + + + + | 2021-07-02 00:00 | Acute bronchitis | [facility] | + + + + | 2021-07-13 00:00 | Dizziness | [facility] | + + + + | 2021-07-13 00:00 | Dizziness | [facility] | + + + + | 2021-07-13 00:00 | Dizziness | [facility] | + + + + | 2021-07-13 00:00 | Dizziness | [facility] | + + + + | 2021-07-13 00:00 | Dizziness | [facility] | + + + + | 2021-07-13 00:00 | Dizziness | [facility] | + + + + | 2021-07-13 00:00 | Dizziness | [facility] | + + + + | 2021-07-13 00:00 | Dizziness | [facility] | + + + + | 2021-07-13 00:00 | Dizziness | [facility] | + + + + | 2021-07-13 00:00 | Dizziness | [facility] | + + + + | 2021-08-27 00:00 | Schizoaffective disorder | [facility] | + + + + | 2021-08-27 00:00 | Schizoaffective disorder | [facility] | + + + + | 2021-08-27 00:00 | Schizoaffective disorder | [facility] | + + + + | 2021-08-27 00:00 | Schizoaffective disorder | [facility] | + + + + | 2021-08-27 00:00 | Schizoaffective disorder | [facility] | + + + + | 2021-08-27 00:00 | Schizoaffective disorder | [facility] | + + + + | 2021-08-27 00:00 | Schizoaffective disorder | [facility] | + + + + | 2021-08-27 00:00 | Schizoaffective disorder | [facility] | + + + + | 2021-08-27 00:00 | Schizoaffective disorder | [facility] | + + + + | 2021-08-27 00:00 | Schizoaffective disorder | [facility] | + + + + | 2021-08-27 00:00 | Stomatitis | [facility] | + + + + | 2021-08-27 00:00 | Stomatitis | [facility] | + + + + | 2021-08-27 00:00 | Stomatitis | [facility] | + + + + | 2021-08-27 00:00 | Stomatitis | [facility] | + + + + | 2021-08-27 00:00 | Stomatitis | [facility] | + + + + | 2021-08-27 00:00 | Stomatitis | [facility] | + + + + | 2021-08-27 00:00 | Stomatitis | [facility] | + + + + | 2021-08-27 00:00 | Stomatitis | [facility] | + + + + | 2021-08-27 00:00 | Stomatitis | [facility] | + + + + | 2021-08-27 00:00 | Stomatitis | [facility] | + + + + | 2021-09-22 00:00 | Vomiting | [facility] | + + + + | 2021-09-22 00:00 | Vomiting | [facility] | + + + + | 2021-09-22 00:00 | Vomiting | [facility] | + + + + | 2021-09-22 00:00 | Vomiting | [facility] | + + + + | 2021-09-22 00:00 | Vomiting | [facility] | + + + + | 2021-09-22 00:00 | Vomiting | [facility] | + + + + | 2021-09-22 00:00 | Vomiting | [facility] | + + + + | 2021-09-22 00:00 | Vomiting | [facility] | + + + + | 2021-09-22 00:00 | Vomiting | [facility] | + + + + | 2021-09-22 00:00 | Vomiting | [facility] | + + + + | 2021-11-12 00:00 | Pneumonia | [facility] | + + + + | 2021-11-12 00:00 | Pneumonia | [facility] | + + + + | 2021-11-12 00:00 | Pneumonia | [facility] | + + + + | 2021-11-12 00:00 | Pneumonia | [facility] | + + + + | 2021-11-12 00:00 | Pneumonia | [facility] | + + + + | 2021-11-12 00:00 | Pneumonia | [facility] | + + + + | 2021-11-12 00:00 | Pneumonia | [facility] | + + + + | 2021-11-12 00:00 | Pneumonia | [facility] | + + + + | 2021-11-12 00:00 | Pneumonia | [facility] | + + + + | 2021-11-12 00:00 | Pneumonia | [facility] | + + + + | 2022-01-03 00:00 | Dental abscess | [facility] | + + + + | 2022-01-03 00:00 | Dental abscess | [facility] | + + + + | 2022-01-03 00:00 | Dental abscess | [facility] | + + + + | 2022-01-03 00:00 | Dental abscess | [facility] | + + + + | 2022-01-03 00:00 | Dental abscess | [facility] | + + + + | 2022-01-03 00:00 | Dental abscess | [facility] | + + + + | 2022-01-03 00:00 | Dental abscess | [facility] | + + + + | 2022-01-03 00:00 | Dental abscess | [facility] | + + + + | 2022-01-03 00:00 | Dental abscess | [facility] | + + + + | 2022-01-03 00:00 | Dental abscess | [facility] | + + + + | 2022-01-14 00:00 | Parasitic infestation | [facility] | + + + + | 2022-01-14 00:00 | Parasitic infestation | [facility] | + + + + | 2022-01-14 00:00 | Parasitic infestation | [facility] | + + + + | 2022-01-14 00:00 | Parasitic infestation | [facility] | + + + + | 2022-01-14 00:00 | Parasitic infestation | [facility] | + + + + | 2022-01-14 00:00 | Parasitic infestation | [facility] | + + + + | 2022-01-14 00:00 | Parasitic infestation | [facility] | + + + + | 2022-01-14 00:00 | Parasitic infestation | [facility] | + + + + | 2022-01-14 00:00 | Parasitic infestation | [facility] | + + + + | 2022-01-14 00:00 | Parasitic infestation | [facility] | + + + + | 2022-01-23 00:00 | Cellulitis of finger of | [facility] | | | left hand | | + + + + | 2022-01-23 00:00 | Cellulitis of finger of | [facility] | | | left hand | | + + + + | 2022-01-23 00:00 | Cellulitis of finger of | [facility] | | | left hand | | + + + + | 2022-01-23 00:00 | Cellulitis of finger of [facility] | | | left hand | | + + + + | 2022-01-23 00:00 | Cellulitis of finger of [facility] | | | left hand | | + + + + | 2022-01-23 00:00 | Cellulitis of finger of [facility] | | | left hand | | + + + + | 2022-01-23 00:00 | Cellulitis of finger of [facility] | | | left hand | | + + + + | 2022-01-23 00:00 | Cellulitis of finger of | [facility] | | | left hand | | + + + + | 2022-01-23 00:00 | Cellulitis of finger of [facility] | | | left hand | | + + + + | 2022-01-23 00:00 | Cellulitis of finger of [facility] | | | left hand | | + + + + | 2022-01-25 00:00 | Swelling | [facility] | + + + + | 2022-01-25 00:00 | Swelling | [facility] | + + + + | 2022-01-25 00:00 | Swelling | [facility] | + + + + | 2022-01-25 00:00 | Swelling | [facility] | + + + + | 2022-01-25 00:00 | Swelling | [facility] | + + + + | 2022-01-25 00:00 | Swelling | [facility] | + + + + | 2022-01-25 00:00 | Swelling | [facility] | + + + + | 2022-01-25 00:00 | Swelling | [facility] | + + + + | 2022-01-25 00:00 | Swelling | [facility] | + + + + | 2022-01-25 00:00 | Swelling | [facility] | + + + + | 2022-01-28 00:00 | Cellulitis of left ring | [facility] | | | finger | | + + + + | 2022-01-28 00:00 | Cellulitis of left ring | [facility] | | | finger | | + + + + | 2022-01-28 00:00 | Cellulitis of left ring | [facility] | | | finger | | + + + + | 2022-01-28 00:00 | Cellulitis of left ring | [facility] | | | finger | | + + + + | 2022-01-28 00:00 | Cellulitis of left ring | [facility] | | | finger | | + + + + | 2022-01-28 00:00 | Cellulitis of left ring | [facility] | | | finger | | + + + + | 2022-01-28 00:00 | Cellulitis of left ring | [facility] | | | finger | | + + + + | 2022-01-28 00:00 | Cellulitis of left ring | [facility] | | | finger | | + + + + | 2022-01-28 00:00 | Cellulitis of left ring | [facility] | | | finger | | + + + + | 2022-01-28 00:00 | Cellulitis of left ring | [facility] | | | finger | | + + + + | 2022-02-10 00:00 | Injury of extremity | [facility] | + + + + | 2022-02-10 00:00 | Injury of extremity | [facility] | + + + + | 2022-02-10 00:00 | Injury of extremity | [facility] | + + + + | 2022-02-10 00:00 | Injury of extremity | [facility] | + + + + | 2022-02-10 00:00 | Injury of extremity | [facility] | + + + + | 2022-02-10 00:00 | Injury of extremity | [facility] | + + + + | 2022-02-10 00:00 | Injury of extremity | [facility] | + + + + | 2022-02-10 00:00 | Injury of extremity | [facility] | + + + + | 2022-02-10 00:00 | Injury of extremity | [facility] | + + + + | 2022-03-10 00:00 | Cellulitis of thumb | [facility] | + + + + | 2022-03-10 00:00 | Cellulitis of thumb | [facility] | + + + + | 2022-03-10 00:00 | Cellulitis of thumb | [facility] | + + + + | 2022-03-10 00:00 | Cellulitis of thumb | [facility] | + + + + | 2022-03-10 00:00 | Cellulitis of thumb | [facility] | + + + + | 2022-03-10 00:00 | Cellulitis of thumb | [facility] | + + + + | 2022-03-10 00:00 | Cellulitis of thumb | [facility] | + + + + | 2022-03-10 00:00 | Cellulitis of thumb | [facility] | + + + + | 2022-03-10 00:00 | Cellulitis of thumb | [facility] | + + + + | 2022-03-10 00:00 | Formication | [facility] | + + + + | 2022-03-10 00:00 | Formication | [facility] | + + + + | 2022-03-10 00:00 | Formication | [facility] | + + + + | 2022-03-10 00:00 | Formication | [facility] | + + + + | 2022-03-10 00:00 | Formication | [facility] | + + + + | 2022-03-10 00:00 | Formication | [facility] | + + + + | 2022-03-10 00:00 | Formication | [facility] | + + + + | 2022-03-10 00:00 | Formication | [facility] | + + + + | 2022-03-10 00:00 | Formication | [facility] | + + + + | 2022-03-14 00:00 | 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[facility] | + + + + | 2022-03-14 00:00 | 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[facility] | + + + + | 2022-03-14 00:00 | 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[facility] | + + + + | 2022-03-14 00:00 | 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[facility] | + + + + | 2022-03-14 00:00 | 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[facility] | + + + + | 2022-03-14 00:00 | 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[facility] | + + + + | 2022-03-14 00:00 | 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[facility] | + + + + | 2022-03-14 00:00 | 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[facility] | + + + + | 2022-03-22 00:00 | Swelling of hand | [facility] | + + + + | 2022-03-22 00:00 | Swelling of hand | [facility] | + + + + | 2022-03-22 00:00 | Swelling of hand | [facility] | + + + + | 2022-03-22 00:00 | Swelling of hand | [facility] | + + + + | 2022-03-22 00:00 | Swelling of hand | [facility] | + + + + | 2022-03-22 00:00 | Swelling of hand | [facility] | + + + + | 2022-03-22 00:00 | Swelling of hand | [facility] | + + + + | 2022-03-22 00:00 | Swelling of hand | [facility] | + + + + [...] | 2022-11-23 00:00 | Dental caries | [facility] | + + + + | 2022-11-23 00:00 | Dental caries [facility] [facility] | + + + + | 2022-11-23 00:00 | Dental caries | [facility] | + + + + | 2022-11-23 00:00 | Dental caries | [facility] | + + + + | 2022-11-23 00:00 | Dental caries | [facility] | + + + + | 2022-11-23 00:00 | Dental caries | [facility] | + + + + | 2022-11-23 00:00 | Dental caries | [facility] | + + + + | 2022-11-23 00:00 | Dental caries | [facility] | + + + + | 2022-11-23 00:00 | Abscess of face | [facility] | + + + + | 2022-11-23 00:00 | Abscess of face | [facility] | + + + + | 2022-11-23 00:00 | Abscess of face | [facility] | + + + + | 2022-11-23 00:00 | Abscess of face | [facility] | + + + + | 2022-11-23 00:00 | Abscess of face | [facility] | + + + + | 2022-11-23 00:00 | Abscess of face | [facility] | + + + + | 2022-11-23 00:00 | Abscess of face | [facility] | + + + + | 2022-11-23 00:00 | Abscess of face | [facility] | + + + + | 2022-12-16 00:00 | Dizziness of unknown | [facility] | | | etiology | | + + + + | 2022-12-16 00:00 | Dizziness of unknown | [facility] | | | etiology | | + + + + | 2022-12-16 00:00 | Dizziness of unknown | [facility] | | | etiology | | + + + + | 2022-12-16 00:00 | Dizziness of unknown | [facility] | | | etiology | | + + + + | 2022-12-16 00:00 | Dizziness of unknown | [facility] | | | etiology | | + + + + | 2022-12-16 00:00 | Dizziness of unknown | [facility] | | | etiology | | + + + + | 2022-12-16 00:00 | Dizziness of unknown | [facility] | | | etiology | | + + + + | 2022-12-16 00:00 | Dizziness of unknown | [facility] | | | etiology | [...] + + | 2022-12-16 20:45 | 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[facility] | | | DRUG [...] + + | 2022-12-21 12:34 | 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[facility] | | | DRUG THERAPY | | + + + + | 2023-01-01 00:00 | Infestation by [employer] | [facility] | | | scabiei | | + + + + | 2023-01-01 00:00 | Infestation by [employer] | [facility] | | | scabiei | | + + + + | 2023-01-01 00:00 | Infestation by [employer] | [facility] | | | scabiei | | + + + + | 2023-01-01 00:00 | Infestation by [employer] | [facility] | | | scabiei | | + + + + | 2023-01-01 00:00 | Infestation by [employer] | [facility] | | | scabiei | | + + + + | 2023-01-01 00:00 | Hypothyroidism | [facility] | + + + + | 2023-01-01 00:00 | Hypothyroidism | [facility] | + + + + | 2023-01-01 00:00 | Hypothyroidism | [facility] | + + + + | 2023-01-01 00:00 | Hypothyroidism | [facility] | + + + + | 2023-01-01 00:00 | Hypothyroidism | [facility] | + + + + | 2023-01-01 00:00 | Hypertension | [facility] | + + + + | 2023-01-01 00:00 | Hypertension | [facility] | + + + + | 2023-01-01 00:00 | Hypertension | [facility] | + + + + | 2023-01-01 00:00 | Hypertension | [facility] | + + + + | 2023-01-01 00:00 | Hypertension | [facility] | + + + + [...] + + | 2023-01-01 18:29 | 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[facility] | | | DRUG [...] + + | 2023-01-10 07:21 | 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[facility] | | | DRUG THERAPY | | + + + + | 2023-01-27 00:00 | Chronic dermatitis of | [facility] | | | hands | | + + + + | 2023-01-27 00:00 | Chronic dermatitis of | [facility] | | | hands | | + + + + | 2023-01-27 00:00 | Chronic dermatitis of | [facility] | | | hands | | + + + + | 2023-01-27 00:00 | Chronic dermatitis of | [facility] | | | hands | [...] + + | 2023-01-27 09:48 | 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[facility] | | | DRUG THERAPY | | + + + + | 2023-01-29 00:00 | Eczema | [facility] | + + + + | 2023-01-29 00:00 | Eczema | [facility] | + + + + | 2023-01-29 00:00 | Eczema | [facility] | + + + + | 2023-01-29 [...] + + | 2023-01-29 00:24 | OTHER [facility] (CURRENT) | [facility] | | | DRUG THERAPY | | + + + + | 2023-02-14 00:00 | Weakness | [facility] | + + + + | 2023-02-14 00:00 | Weakness | [facility] | + + + + | 2023-02-15 00:00 | Anxiety | [facility] | + + + + | 2023-02-15 00:00 | Anxiety | [facility] | + + + + | 2023-02-16 00:00 | Dry skin | [facility] | + + + + | 2023-02-16 00:00 | Dry skin | [facility] | + + + + | 2023-02-16 [...] + + | 2023-02-16 06:39 | OTHER [facility] (CURRENT) | [facility] | | | DRUG [...] (missing) | | (unavailable | 19:23 | [facility] | | | | | [...] (missing) | (missing) | | (unavailable | :51:07 | [facility] | | | | | [...] + + + + | Result panel [id number] | + + + + + +-------+ [...] (missing) | (missing) | | (unavailable | :35:07 | [facility] | | | | | [...] + + + + | Result panel [id number] | + + + + + + [...] 107.81 | lb | + + + +---------+ | 2023-02-16 00:00 | BMI | 18.5 | kg/m2 | + + + +---------+ | 2023-02-16 00:00 | BP_diastolic | 00 | mmHg | + + + +---------+ | 2023-02-16 00:00 | BP_diastolic | 89 | mmHg | + + + +---------+ | 2023-02-16 00:00 | BP_systolic | 00 | mmHg | + + + +---------+ | 2023-02-16 00:00 | BP_systolic | 138 | mmHg | + + + +---------+ | 2023-02-16 00:00 | heart_rate | 00 | /min | + + + +---------+ | 2023-02-16 00:00 | heart_rate | 76 | /min | + + + +---------+ | 2023-02-16 00:00 | height_metric | 162.56 | cm | + + + +---------+ | 2023-02-16 00:00 | height_standard | 64 | in | + + + +---------+ | 2023-02-16 00:00 | o2_saturation | 00 | % | + + + +---------+ | 2023-02-16 00:00 | o2_saturation | 96 | % | + + + +---------+ | 2023-02-16 00:00 | respiration_rate | 00 | /min | + + + +---------+ | 2023-02-16 00:00 | respiration_rate | 20 | /min | + + + +---------+ | 2023-02-16 00:00 | temperature_metric | -17.78 | C | | | | | | + + + +---------+ | 2023-02-16 00:00 | temperature_metric | 36.94 | C | | | | | | + + + +---------+ | 2023-02-16 00:00 | | 0 | F | | | temperature_standar | | | | | d | | | + + + +---------+ | 2023-02-16 00:00 | | 98.5 | F | | | temperature_standar | | | | | d | | | + + + +---------+ | 2023-02-16 00:00 | weight_metric | 48.99 | kg | + + + +---------+ | 2023-02-16 00:00 | weight_standard | 108 | lb | + + + +---------+"
--- OUTSIDE RECORDS SUMMARY | ~2023-02-26 | XMS | Continuity of Care Document ---
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 | Phone | + [...] + + | 2017-09-28 00:00 | | [facility] | | | Guaifenesin/Dextromethorpha | | | | n | | + + + + | 2017-09-28 00:00 | | [facility] | | | Guaifenesin/Dextromethorpha | | | | n | | + + + + | 2017-09-28 00:00 | | [facility] | | | Guaifenesin/Dextromethorpha | | | | n | | + + + + | 2017-09-28 00:00 | | [facility] | | | Guaifenesin/Dextromethorpha | | | | n | | + + + + | 2017-09-28 00:00 | | [facility] | | | Guaifenesin/Dextromethorpha | | | | n | | + + + + | 2017-09-28 00:00 | | [facility] | | | Guaifenesin/Dextromethorpha | | | | n | | + + + + | 2017-09-28 00:00 | | [facility] | | | Guaifenesin/Dextromethorpha | | | | n | | + + + + | 2017-09-28 00:00 | | [facility] | | | Guaifenesin/Dextromethorpha | | | | n | | + + + + | 2017-09-28 00:00 | | [facility] | | | Guaifenesin/Dextromethorpha | | | | n | | + + + + | 2017-09-28 00:00 | | [facility] | | | Gufenesin/Dextromethorpha | | | | n | | + + + + | 2021-04-03 00:00 | ONDANSETRON HCL | [facility] | + + + + | 2021-04-03 00:00 | ONDANSETRON HCL | [facility] | + + + + | 2021-04-03 00:00 | ONDANSETRON HCL | [facility] | + + + + | 2021-04-03 00:00 | ONDANSETRON HCL | [facility] | + + + + | 2021-04-03 00:00 | ONDANSETRON HCL | [facility] | + + + + | 2021-04-03 00:00 | ONDANSETRON HCL | [facility] | + + + + | 2021-04-03 00:00 | ONDANSETRON HCL | [facility] | + + + + | 2021-04-03 00:00 | ONDANSETRON HCL | [facility] | + + + + | 2021-04-03 00:00 | ONDANSETRON HCL | [facility] | + + + + | 2021-04-03 00:00 | ONDANSETRON HCL | [facility] | + + + + | 2021-02-08 00:00 | TRIAMCINOLONE ACETONIDE | [facility] | + + + + | 2021-02-08 00:00 | TRIAMCINOLONE ACETONIDE | [facility] | + + + + | 2021-02-08 00:00 | TRIAMCINOLONE ACETONIDE | [facility] | + + + + | 2021-02-08 00:00 | TRIAMCINOLONE ACETONIDE | [facility] | + + + + | 2021-02-08 00:00 | TRIAMCINOLONE ACETONIDE | [facility] | + + + + | 2021-02-08 00:00 | TRIAMCINOLONE ACETONIDE | [facility] | + + + + | 2021-02-08 00:00 | TRIAMCINOLONE ACETONIDE | [facility] | + + + + | 2021-02-08 00:00 | TRIAMCINOLONE ACETONIDE | [facility] | + + + + | 2021-02-08 00:00 | TRIAMCINOLONE ACETONIDE | [facility] | + + + + | 2021-02-08 00:00 | TRIAMCINOLONE ACETONIDE | [facility] | + + + + | 2023-01-29 00:00 | UREA | [facility] | + + + + | 2023-01-29 00:00 | UREA | [facility] | + + + + | 2023-01-29 00:00 | UREA | [facility] | + + + + | 2021-08-27 00:00 | OLANZAPINE | [facility] | + + + + | 2021-08-27 00:00 | OLANZAPINE | [facility] | + + + + | 2021-08-27 00:00 | OLANZAPINE | [facility] | + + + + | 2021-08-27 00:00 | OLANZAPINE | [facility] | + + + + | 2021-08-27 00:00 | OLANZAPINE | [facility] | + + + + | 2021-08-27 00:00 | OLANZAPINE | [facility] | + + + + | 2021-08-27 00:00 | OLANZAPINE | [facility] | + + + + | 2021-08-27 00:00 | OLANZAPINE | [facility] | + + + + | 2021-08-27 00:00 | OLANZAPINE | [facility] | + + + + | 2021-08-27 00:00 | OLANZAPINE | [facility] | + + + + | 2021-09-01 00:00 | OLANZAPINE | [facility] | + + + + | 2021-09-01 00:00 | OLANZAPINE | [facility] | + + + + | 2021-09-01 00:00 | OLANZAPINE | [facility] | + + + + | 2021-09-01 00:00 | OLANZAPINE | [facility] | + + + + | 2021-09-01 00:00 | OLANZAPINE | [facility] | + + + + | 2021-09-01 00:00 | OLANZAPINE | [facility] | + + + + | 2021-09-01 00:00 | OLANZAPINE | [facility] | + + + + | 2021-09-01 00:00 | OLANZAPINE | [facility] | + + + + | 2021-09-01 00:00 | OLANZAPINE | [facility] | + + + + | 2021-09-01 00:00 | OLANZAPINE | [facility] | + + + + | 2022-10-13 00:00 | DOXYCYCLINE HYCLATE | [facility] | + + + + | 2022-01-31 00:00 | AMLODIPINE BESYLATE | [facility] | + + + + | 2022-01-31 00:00 | AMLODIPINE BESYLATE | [facility] | + + + + | 2022-01-31 00:00 | AMLODIPINE BESYLATE | [facility] | + + + + | 2022-01-23 00:00 | CEPHALEXIN | [facility] | + + + + | 2022-01-23 00:00 | CEPHALEXIN | [facility] | + + + + | 2022-01-23 00:00 | CEPHALEXIN | [facility] | + + + + | 2022-01-23 00:00 | CEPHALEXIN | [facility] | + + + + | 2022-01-23 00:00 | CEPHALEXIN | [facility] | + + + + | 2022-01-23 00:00 | CEPHALEXIN | [facility] | + + + + | 2022-01-23 00:00 | CEPHALEXIN | [facility] | + + + + | 2022-01-23 00:00 | CEPHALEXIN | [facility] | + + + + | 2022-01-23 00:00 | CEPHALEXIN | [facility] | + + + + | 2022-01-23 00:00 | CEPHALEXIN | [facility] | + + + + | 2022-03-10 00:00 | CEPHALEXIN | [facility] | + + + + | 2022-03-10 00:00 | CEPHALEXIN | [facility] | + + + + | 2017-09-07 00:00 | IBUPROFEN | [facility] | + + + + | 2017-09-07 00:00 | IBUPROFEN | [facility] | + + + + | 2017-09-07 00:00 | IBUPROFEN | [facility] | + + + + | 2017-09-07 00:00 | IBUPROFEN | [facility] | + + + + | 2017-09-07 00:00 | IBUPROFEN | [facility] | + + + + | 2017-09-07 00:00 | IBUPROFEN | [facility] | + + + + | 2017-09-07 00:00 | IBUPROFEN | [facility] | + + + + | 2017-09-07 00:00 | IBUPROFEN | [facility] | + + + + | 2017-09-07 00:00 | IBUPROFEN | [facility] | + + + + | 2017-09-07 00:00 | IBUPROFEN | [facility] | + + + + | 2023-01-01 00:00 | PERMETHRIN | [facility] | + + + + | 2023-01-01 00:00 | PERMETHRIN | [facility] | + + + + | 2023-01-01 00:00 | PERMETHRIN | [facility] | + + + + | 2023-01-01 00:00 | PERMETHRIN | [facility] | + + + + | 2023-01-01 00:00 | PERMETHRIN | [facility] | + + + + | 2019-01-27 00:00 | CEPHALEXIN | [facility] | + + + + | 2019-01-27 00:00 | CEPHALEXIN | [facility] | + + + + | 2019-01-27 00:00 | CEPHALEXIN | [facility] | + + + + | 2019-01-27 00:00 | CEPHALEXIN | [facility] | + + + + | 2019-01-27 00:00 | CEPHALEXIN | [facility] | + + + + | 2019-01-27 00:00 | CEPHALEXIN | [facility] | + + + + | 2019-01-27 00:00 | CEPHALEXIN | [facility] | + + + + | 2019-01-27 00:00 | CEPHALEXIN | [facility] | + + + + | 2019-01-27 00:00 | CEPHALEXIN | [facility] | + + + + | 2019-01-27 00:00 | CEPHALEXIN | [facility] | + + + + | 2017-08-07 00:00 | AZITHROMYCIN | [facility] | + + + + | 2017-08-07 00:00 | AZITHROMYCIN | [facility] | + + + + | 2017-08-07 00:00 | AZITHROMYCIN | [facility] | + + + + | 2017-08-07 00:00 | AZITHROMYCIN | [facility] | + + + + | 2017-08-07 00:00 | AZITHROMYCIN | [facility] | + + + + | 2017-08-07 00:00 | AZITHROMYCIN | [facility] | + + + + | 2017-08-07 00:00 | AZITHROMYCIN | [facility] | + + + + | 2017-08-07 00:00 | AZITHROMYCIN | [facility] | + + + + | 2017-08-07 00:00 | AZITHROMYCIN | [facility] | + + + + | 2017-08-07 00:00 | AZITHROMYCIN | [facility] | + + + + | 2022-03-14 00:00 | BETAMETHASONE DIPROPIONATE | [facility] | | | | | + + + + | 2016-11-17 00:00 | CEPHALEXIN | [facility] | + + + + | 2016-11-17 00:00 | CEPHALEXIN | [facility] | + + + + | 2016-11-17 00:00 | CEPHALEXIN | [facility] | + + + + | 2016-11-17 00:00 | CEPHALEXIN | [facility] | + + + + | 2016-11-17 00:00 | CEPHALEXIN | [facility] | + + + + | 2016-11-17 00:00 | CEPHALEXIN | [facility] | + + + + | 2016-11-17 00:00 | CEPHALEXIN | [facility] | + + + + | 2016-11-17 00:00 | CEPHALEXIN | [facility] | + + + + | 2016-11-17 00:00 | CEPHALEXIN | [facility] | + + + + | 2016-11-17 00:00 | CEPHALEXIN | [facility] | + + + + | 2016-11-20 00:00 | CEPHALEXIN | [facility] | + + + + | 2016-11-20 00:00 | CEPHALEXIN | [facility] | + + + + | 2016-11-20 00:00 | CEPHALEXIN | [facility] | + + + + | 2016-11-20 00:00 | CEPHALEXIN | [facility] | + + + + | 2016-11-20 00:00 | CEPHALEXIN | [facility] | + + + + | 2016-11-20 00:00 | CEPHALEXIN | [facility] | + + + + | 2016-11-20 00:00 | CEPHALEXIN | [facility] | + + + + | 2016-11-20 00:00 | CEPHALEXIN | [facility] | + + + + | 2016-11-20 00:00 | CEPHALEXIN | [facility] | + + + + | 2016-11-20 00:00 | CEPHALEXIN | [facility] | + + + + | 2022-02-03 00:00 | CEPHALEXIN | [facility] | + + + + | 2022-02-05 00:00 | CEPHALEXIN | [facility] | + + + + | 2022-02-06 00:00 | CEPHALEXIN | [facility] | + + + + | 2022-02-06 00:00 | CEPHALEXIN | [facility] | + + + + | 2022-02-07 00:00 | CEPHALEXIN | [facility] | + + + + | 2022-02-10 00:00 | CEPHALEXIN | [facility] | + + + + | 2022-02-16 00:00 | CEPHALEXIN | [facility] | + + + + | 2022-03-14 00:00 | CEPHALEXIN | [facility] | + + + + | 2022-03-19 00:00 | CEPHALEXIN | [facility] | + + + + | 2022-03-22 00:00 | CEPHALEXIN | [facility] | + + + + | 2022-10-13 00:00 | CEPHALEXIN | [facility] | + + + + | 2022-10-31 00:00 | CEPHALEXIN | [facility] | + + + + | 2022-11-21 00:00 | CEPHALEXIN | [facility] | + + + + | 2022-11-22 00:00 | CEPHALEXIN | [facility] | + + + + | 2022-11-23 00:00 | CEPHALEXIN | [facility] | + + + + | 2022-12-16 00:00 | CEPHALEXIN | [facility] | + + + + | 2022-12-21 00:00 | CEPHALEXIN | [facility] | + + + + | 2023-01-01 00:00 | CEPHALEXIN | [facility] | + + + + | 2023-01-10 00:00 | CEPHALEXIN | [facility] | + + + + | 2023-01-27 00:00 | CEPHALEXIN | [facility] | + + + + | 2023-01-29 00:00 | CEPHALEXIN | [facility] | + + + + | 2023-02-14 00:00 | CEPHALEXIN | [facility] | + + + + | 2023-02-15 00:00 | CEPHALEXIN | [facility] | + + + + | 2023-02-16 00:00 | CEPHALEXIN | [facility] | + + + + | 2023-02-16 00:00 | CEPHALEXIN | [facility] | + + + + | 2020-07-15 00:00 | Erythromycin Base | [facility] | + + + + | 2020-07-15 00:00 | Erythromycin Base | [facility] | + + + + | 2020-07-15 00:00 | Erythromycin Base | [facility] | + + + + 2020-07-15 00:00 | Erythromycin Base | [facility] | + + + + | 2020-07-15 00:00 | Erythromycin Base | [facility] | + + + + | 2020-07-15 00:00 | Erythromycin Base | [facility] | + + + + | 2020-07-15 00:00 | Erythromycin Base | [facility] | + + + + | 2020-07-15 00:00 | Erythromycin Base | [facility] | + + + + 2020-07-15 00:00 | Erythromycin Base | [facility] | + + + + | 2020-07-15 00:00 | Erythromycin Base | [facility] | + + + + | 2022-10-13 00:00 | ONDANSETRON | [facility] | + + + + | 2022-02-03 00:00 | Oseltamivir Phosphate | [facility] | + + + + | 2022-02-05 00:00 | Oseltamivir Phosphate | [facility] | + + + + | 2022-02-06 00:00 | Oseltamivir Phosphate | [facility] | + + + + | 2022-02-06 00:00 | Oseltamivir Phosphate | [facility] | + + + + | 2022-02-07 00:00 | Oseltamivir Phosphate | [facility] | + + + + | 2022-02-10 00:00 | Oseltamivir Phosphate | [facility] | + + + + | 2022-02-16 00:00 | Oseltamivir Phosphate | [facility] | + + + + | 2022-03-14 00:00 | Oseltamivir Phosphate | [facility] | + + + + | 2022-03-19 00:00 | Oseltamivir Phosphate | [facility] | + + + + | 2022-03-22 00:00 | Oseltamivir Phosphate | [facility] | + + + + | 2022-10-13 00:00 | Oseltamivir Phosphate | [facility] | + + + + | 2022-10-31 00:00 | Oseltamivir Phosphate | [facility] | + + + + | 2022-11-21 00:00 | Oseltamivir Phosphate | [facility] | + + + + | 2022-11-22 00:00 | Oseltamivir Phosphate | [facility] | + + + + | 2022-11-23 00:00 | Oseltamivir Phosphate | [facility] | + + + + | 2022-12-16 00:00 | Oseltamivir Phosphate | [facility] | + + + + | 2022-12-21 00:00 | Oseltamivir Phosphate | [facility] | + + + + | 2023-01-01 00:00 | Oseltamivir Phosphate | [facility] | + + + + | 2023-01-10 00:00 | Oseltamivir Phosphate | [facility] | + + + + | 2023-01-27 00:00 | Oseltamivir Phosphate | [facility] | + + + + | 2023-01-29 00:00 | Oseltamivir Phosphate | [facility] | + + + + | 2023-02-14 00:00 | Oseltamivir Phosphate | [facility] | + + + + | 2023-02-15 00:00 | Oseltamivir Phosphate | [facility] | + + + + | 2023-02-16 00:00 | Oseltamivir Phosphate | [facility] | + + + + | 2023-02-16 00:00 | Oseltamivir Phosphate | [facility] | + + + + | 2022-02-03 00:00 | PIMOZIDE | [facility] | + + + + | 2022-02-05 00:00 | PIMOZIDE | [facility] | + + + + | 2022-02-06 00:00 | PIMOZIDE | [facility] | + + + + | 2022-02-06 00:00 | PIMOZIDE | [facility] | + + + + | 2022-02-07 00:00 | PIMOZIDE | [facility] | + + + + | 2022-02-10 00:00 | PIMOZIDE | [facility] | + + + + | 2022-02-16 00:00 | PIMOZIDE | [facility] | + + + + | 2022-03-14 00:00 | PIMOZIDE | [facility] | + + + + | 2022-03-19 00:00 | PIMOZIDE | [facility] | + + + + | 2022-03-22 00:00 | PIMOZIDE | [facility] | + + + + | 2022-10-13 00:00 | PIMOZIDE | [facility] | + + + + | 2022-10-31 00:00 | PIMOZIDE | [facility] | + + + + | 2022-11-21 00:00 | PIMOZIDE | [facility] | + + + + | 2022-11-22 00:00 | PIMOZIDE | [facility] | + + + + | 2022-11-23 00:00 | PIMOZIDE | [facility] | + + + + | 2022-12-16 00:00 | PIMOZIDE | [facility] | + + + + | 2022-12-21 00:00 | PIMOZIDE | [facility] | + + + + | 2023-01-01 00:00 | PIMOZIDE | [facility] | + + + + | 2023-01-10 00:00 | PIMOZIDE | [facility] | + + + + | 2023-01-27 00:00 | PIMOZIDE | [facility] | + + + + | 2023-01-29 00:00 | PIMOZIDE | [facility] | + + + + | 2023-02-14 00:00 | PIMOZIDE | [facility] | + + + + | 2023-02-15 00:00 | PIMOZIDE | [facility] | + + + + | 2023-02-16 00:00 | PIMOZIDE | [facility] | + + + + | 2023-02-16 00:00 | PIMOZIDE | [facility] | + + + + | 2017-06-18 00:00 | predniSONE | [facility] | + + + + | 2017-06-18 00:00 | predniSONE | [facility] | + + + + | 2017-06-18 00:00 | predniSONE | [facility] | + + + + | 2017-06-18 00:00 | predniSONE | [facility] | + + + + | 2017-06-18 00:00 | predniSONE | [facility] | + + + + | 2017-06-18 00:00 | predniSONE | [facility] | + + + + | 2017-06-18 00:00 | predniSONE | [facility] | + + + + | 2017-06-18 00:00 | predniSONE | [facility] | + + + + | 2017-06-18 00:00 | predniSONE | [facility] | + + + + | 2017-06-18 00:00 | predniSONE | [facility] | + + + + | 2020-01-23 00:00 | predniSONE | [facility] | + + + + | 2020-01-23 00:00 | predniSONE | [facility] | + + + + | 2020-01-23 00:00 | predniSONE | [facility] | + + + + | 2020-01-23 00:00 | predniSONE | [facility] | + + + + | 2020-01-23 00:00 | predniSONE | [facility] | + + + + | 2020-01-23 00:00 | predniSONE | [facility] | + + + + | 2020-01-23 00:00 | predniSONE | [facility] | + + + + | 2020-01-23 00:00 | predniSONE | [facility] | + + + + | 2020-01-23 00:00 | predniSONE | [facility] | + + + + | 2020-01-23 00:00 | predniSONE | [facility] | + + + + | 2022-03-22 00:00 | predniSONE | [facility] | + + + + | 2016-05-14 00:00 | HALOPERIDOL | [facility] | + + + + | 2016-05-14 00:00 | HALOPERIDOL | [facility] | + + + + | 2016-05-14 00:00 | HALOPERIDOL | [facility] | + + + + | 2016-05-14 00:00 | HALOPERIDOL | [facility] | + + + + | 2016-05-14 00:00 | HALOPERIDOL | [facility] | + + + + | 2016-05-14 00:00 | HALOPERIDOL | [facility] | + + + + | 2016-05-14 00:00 | HALOPERIDOL | [facility] | + + + + | 2016-05-14 00:00 | HALOPERIDOL | [facility] | + + + + | 2016-05-14 00:00 | HALOPERIDOL | [facility] | + + + + | 2016-05-14 00:00 | HALOPERIDOL | [facility] | + + + + | 2018-02-21 00:00 | HALOPERIDOL | [facility] | + + + + | 2018-02-21 00:00 | HALOPERIDOL | [facility] | + + + + | 2018-02-21 00:00 | HALOPERIDOL | [facility] | + + + + | 2018-02-21 00:00 | HALOPERIDOL | [facility] | + + + + | 2018-02-21 00:00 | HALOPERIDOL | [facility] | + + + + | 2018-02-21 00:00 | HALOPERIDOL | [facility] | + + + + | 2018-02-21 00:00 | HALOPERIDOL | [facility] | + + + + | 2018-02-21 00:00 | HALOPERIDOL | [facility] | + + + + | 2018-02-21 00:00 | HALOPERIDOL | [facility] | + + + + | 2018-02-21 00:00 | HALOPERIDOL | [facility] | + + + + | 2022-02-03 00:00 | HALOPERIDOL | [facility] | + + + + | 2022-02-05 00:00 | HALOPERIDOL | [facility] | + + + + | 2022-02-06 00:00 | HALOPERIDOL | [facility] | + + + + | 2022-02-06 00:00 | HALOPERIDOL | [facility] | + + + + | 2022-02-07 00:00 | HALOPERIDOL | [facility] | + + + + | 2022-02-10 00:00 | HALOPERIDOL | [facility] | + + + + | 2022-02-16 00:00 | HALOPERIDOL | [facility] | + + + + | 2022-03-14 00:00 | HALOPERIDOL | [facility] | + + + + | 2022-03-19 00:00 | HALOPERIDOL | [facility] | + + + + | 2022-03-22 00:00 | HALOPERIDOL | [facility] | + + + + | 2022-10-13 00:00 | HALOPERIDOL | [facility] | + + + + | 2022-10-31 00:00 | HALOPERIDOL | [facility] | + + + + | 2022-11-21 00:00 | HALOPERIDOL | [facility] | + + + + | 2022-11-22 00:00 | HALOPERIDOL | [facility] | + + + + | 2022-11-23 00:00 | HALOPERIDOL | [facility] | + + + + | 2022-12-16 00:00 | HALOPERIDOL | [facility] | + + + + | 2022-12-21 00:00 | HALOPERIDOL | [facility] | + + + + | 2023-01-01 00:00 | HALOPERIDOL | [facility] | + + + + | 2023-01-10 00:00 | HALOPERIDOL | [facility] | + + + + | 2023-01-27 00:00 | HALOPERIDOL | [facility] | + + + + | 2023-01-29 00:00 | HALOPERIDOL | [facility] | + + + + | 2023-02-14 00:00 | HALOPERIDOL | [facility] | + + + + | 2023-02-15 00:00 | HALOPERIDOL | [facility] | + + + + | 2023-02-16 00:00 | HALOPERIDOL | [facility] | + + + + | 2023-02-16 00:00 | HALOPERIDOL | [facility] | + + + + | 2021-07-02 00:00 | LISINOPRIL | [facility] | + + + + | 2021-07-02 00:00 | LISINOPRIL | [facility] | + + + + | 2021-07-02 00:00 | LISINOPRIL | [facility] | + + + + | 2021-07-02 00:00 | LISINOPRIL | [facility] | + + + + | 2021-07-02 00:00 | LISINOPRIL | [facility] | + + + + | 2021-07-02 00:00 | LISINOPRIL | [facility] | + + + + | 2021-07-02 00:00 | LISINOPRIL | [facility] | + + + + | 2021-07-02 00:00 | LISINOPRIL | [facility] | + + + + | 2021-07-02 00:00 | LISINOPRIL | [facility] | + + + + | 2021-07-02 00:00 | LISINOPRIL | [facility] | + + + + | 2023-01-01 00:00 | LISINOPRIL | [facility] | + + + + | 2023-01-01 00:00 | LISINOPRIL | [facility] | + + + + | 2023-01-01 00:00 | LISINOPRIL | [facility] | + + + + | 2023-01-01 00:00 | LISINOPRIL | [facility] | + + + + | 2023-01-01 00:00 | LISINOPRIL | [facility] | + + + + | 2023-01-10 00:00 | LISINOPRIL | [facility] | + + + + | 2023-01-27 00:00 | LISINOPRIL | [facility] | + + + + | 2023-01-29 00:00 | LISINOPRIL | [facility] | + + + + | 2023-02-14 00:00 | LISINOPRIL | [facility] | + + + + | 2023-02-15 00:00 | LISINOPRIL | [facility] | + + + + | 2023-02-16 00:00 | LISINOPRIL | [facility] | + + + + | 2023-02-16 00:00 | LISINOPRIL | [facility] | + + + + | 2023-01-01 00:00 | HYDROCHLOROTHIAZIDE | [facility] | + + + + | 2023-01-01 00:00 | HYDROCHLOROTHIAZIDE | [facility] | + + + + | 2023-01-01 00:00 | HYDROCHLOROTHIAZIDE | [facility] | + + + + | 2023-01-01 00:00 | HYDROCHLOROTHIAZIDE | [facility] | + + + + | 2023-01-01 00:00 | HYDROCHLOROTHIAZIDE | [facility] | + + + + | 2023-01-10 00:00 | HYDROCHLOROTHIAZIDE | [facility] | + + + + | 2023-01-27 00:00 | HYDROCHLOROTHIAZIDE | [facility] | + + + + | 2023-01-29 00:00 | HYDROCHLOROTHIAZIDE | [facility] | + + + + | 2023-02-14 00:00 | HYDROCHLOROTHIAZIDE | [facility] | + + + + | 2023-02-15 00:00 | HYDROCHLOROTHIAZIDE | [facility] | + + + + | 2023-02-16 00:00 | HYDROCHLOROTHIAZIDE | [facility] | + + + + | 2023-02-16 00:00 | HYDROCHLOROTHIAZIDE | [facility] | + + + + | 2022-11-22 00:00 | AMOXICILLIN/POTASSIUM CLAV | [facility] | | | | | + + + + | 2022-11-22 00:00 | AMOXICILLIN/POTASSIUM CLAV | [facility] | | | | | + + + + | 2017-09-28 00:00 | ALBUTEROL SULFATE | [facility] | + + + + | 2017-09-28 00:00 | ALBUTEROL SULFATE | [facility] | + + + + | 2017-09-28 00:00 | ALBUTEROL SULFATE | [facility] | + + + + | 2017-09-28 00:00 | ALBUTEROL SULFATE | [facility] | + + + + | 2017-09-28 00:00 | ALBUTEROL SULFATE | [facility] | + + + + | 2017-09-28 00:00 | ALBUTEROL SULFATE | [facility] | + + + + | 2017-09-28 00:00 | ALBUTEROL SULFATE | [facility] | + + + + | 2017-09-28 00:00 | ALBUTEROL SULFATE | [facility] | + + + + | 2017-09-28 00:00 | ALBUTEROL SULFATE | [facility] | + + + + | 2017-09-28 00:00 | ALBUTEROL SULFATE | [facility] | + + + + | 2017-09-07 00:00 | CLINDAMYCIN HCL | [facility] | + + + + | 2017-09-07 00:00 | CLINDAMYCIN HCL | [facility] | + + + + | 2017-09-07 00:00 | CLINDAMYCIN HCL | [facility] | + + + + | 2017-09-07 00:00 | CLINDAMYCIN HCL | [facility] | + + + + | 2017-09-07 00:00 | CLINDAMYCIN HCL | [facility] | + + + + | 2017-09-07 00:00 | CLINDAMYCIN HCL | [facility] | + + + + | 2017-09-07 00:00 | CLINDAMYCIN HCL | [facility] | + + + + | 2017-09-07 00:00 | CLINDAMYCIN HCL | [facility] | + + + + | 2017-09-07 00:00 | CLINDAMYCIN HCL | [facility] | + + + + | 2017-09-07 00:00 | CLINDAMYCIN HCL | [facility] | + + + + | 2020-06-16 00:00 | CLINDAMYCIN HCL | [facility] | + + + + | 2020-06-16 00:00 | CLINDAMYCIN HCL | [facility] | + + + + | 2020-06-16 00:00 | CLINDAMYCIN HCL | [facility] | + + + + | 2020-06-16 00:00 | CLINDAMYCIN HCL | [facility] | + + + + | 2020-06-16 00:00 | CLINDAMYCIN HCL | [facility] | + + + + | 2020-06-16 00:00 | CLINDAMYCIN HCL | [facility] | + + + + | 2020-06-16 00:00 | CLINDAMYCIN HCL | [facility] | + + + + | 2020-06-16 00:00 | CLINDAMYCIN HCL | [facility] | + + + + | 2020-06-16 00:00 | CLINDAMYCIN HCL | [facility] | + + + + | 2020-06-16 00:00 | CLINDAMYCIN HCL | [facility] | + + + + 2020-07-12 00:00 | CLINDAMYCIN HCL | [facility] | + + + + | 2020-07-12 00:00 | CLINDAMYCIN HCL | [facility] | + + + + | 2020-07-12 00:00 | CLINDAMYCIN HCL | [facility] | + + + + | 2020-07-12 00:00 | CLINDAMYCIN HCL | [facility] | + + + + | 2020-07-12 00:00 | CLINDAMYCIN HCL | [facility] | + + + + 2020-07-12 00:00 | CLINDAMYCIN HCL | [facility] | + + + + 2020-07-12 00:00 | CLINDAMYCIN HCL | [facility] | + + + + | 2020-07-12 00:00 | CLINDAMYCIN HCL | [facility] | + + + + | 2020-07-12 00:00 | CLINDAMYCIN HCL | [facility] | + + + + | 2020-07-12 00:00 | CLINDAMYCIN HCL | [facility] | + + + + | 2022-11-23 00:00 | CLINDAMYCIN HCL | [facility] | + + + + | 2022-11-23 00:00 | CLINDAMYCIN HCL | [facility] | + + + + | 2017-08-07 00:00 | METHYLPREDNISOLONE | [facility] | + + + + | 2017-08-07 00:00 | METHYLPREDNISOLONE | [facility] | + + + + | 2017-08-07 00:00 | METHYLPREDNISOLONE | [facility] | + + + + | 2017-08-07 00:00 | METHYLPREDNISOLONE | [facility] | + + + + | 2017-08-07 00:00 | METHYLPREDNISOLONE | [facility] | + + + + | 2017-08-07 00:00 | METHYLPREDNISOLONE | [facility] | + + + + | 2017-08-07 00:00 | METHYLPREDNISOLONE | [facility] | + + + + | 2017-08-07 00:00 | METHYLPREDNISOLONE | [facility] | + + + + | 2017-08-07 00:00 | METHYLPREDNISOLONE | [facility] | + + + + | 2017-08-07 00:00 | METHYLPREDNISOLONE | [facility] | + + + + | 2021-08-27 00:00 | Chlorhexidine Gluconate | [facility] | + + + + | 2021-08-27 00:00 | Chlorhexidine Gluconate | [facility] | + + + + | 2021-08-27 00:00 | Chlorhexidine Gluconate | [facility] | + + + + | 2021-08-27 00:00 | Chlorhexidine Gluconate | [facility] | + + + + | 2021-08-27 00:00 | Chlorhexidine Gluconate | [facility] | + + + + | 2021-08-27 00:00 | Chlorhexidine Gluconate | [facility] | + + + + | 2021-08-27 00:00 | Chlorhexidine Gluconate | [facility] | + + + + | 2021-08-27 00:00 | Chlorhexidine Gluconate | [facility] | + + + + | 2021-08-27 00:00 | Chlorhexidine Gluconate | [facility] | + + + + | 2021-08-27 00:00 | Chlorhexidine Gluconate | [facility] | + + + + | 2014-02-25 00:00 | | [facility] | | | SULFAMETHOXAZOLE/TRIMETHOPR | | | | IM DS | | + + + + | 2014-02-25 00:00 | | [facility] | | | SULFAMETHOXAZOLE/TRIMETHOPR | | | | IM DS | | + + + + | 2014-02-25 00:00 | | [facility] | | | SULFAMETHOXAZOLE/TRIMETHOPR | | | | IM DS | | + + + + | 2014-02-25 00:00 | | [facility] | | | SULFAMETHOXAZOLE/TRIMETHOPR | | | | IM DS | | + + + + | 2014-02-25 00:00 | | [facility] | | | SULFAMETHOXAZOLE/TRIMETHOPR | | | | IM DS | | + + + + | 2014-02-25 00:00 | | [facility] | | | SULFAMETHOXAZOLE/TRIMETHOPR | | | | IM DS | | + + + + | 2014-02-25 00:00 | | [facility] | | | SULFAMETHOXAZOLE/TRIMETHOPR | | | | IM DS | | + + + + | 2014-02-25 00:00 | | [facility] | | | SULFAMETHOXAZOLE/TRIMETHOPR | | | | IM DS | | + + + + | 2014-02-25 00:00 | | [facility] | | | SULFAMETHOXAZOLE/TRIMETHOPR | | | | IM DS | | + + + + | 2014-02-25 00:00 | | [facility] | | | SULFAMETHOXAZOLE/TRIMETHOPR | | | | IM DS | | + + + + | 2017-10-08 00:00 | | [facility] | | | SULFAMETHOXAZOLE/TRIMETHOPR | | | | IM DS | | + + + + | 2017-10-08 00:00 | | [facility] | | | SULFAMETHOXAZOLE/TRIMETHOPR | | | | IM DS | | + + + + | 2017-10-08 00:00 | | [facility] | | | SULFAMETHOXAZOLE/TRIMETHOPR | | | | IM DS | | + + + + | 2017-10-08 00:00 | | [facility] | | | SULFAMETHOXAZOLE/TRIMETHOPR | | | | IM DS | | + + + + | 2017-10-08 00:00 | | [facility] | | | SULFAMETHOXAZOLE/TRIMETHOPR | | | | IM DS | | + + + + | 2017-10-08 00:00 | | [facility] | | | SULFAMETHOXAZOLE/TRIMETHOPR | | | | IM DS | | + + + + | 2017-10-08 00:00 | | [facility] | | | SULFAMETHOXAZOLE/TRIMETHOPR | | | | IM DS | | + + + + | 2017-10-08 00:00 | | [facility] | | | SULFAMETHOXAZOLE/TRIMETHOPR | | | | IM DS | | + + + + | 2017-10-08 00:00 | | [facility] | | | SULFAMETHOXAZOLE/TRIMETHOPR | | | | IM DS | | + + + + | 2017-10-08 00:00 | | [facility] | | | SULFAMETHOXAZOLE/TRIMETHOPR | | | | IM DS | | + + + + | 2022-01-31 00:00 | | [facility] | | | SULFAMETHOXAZOLE/TRIMETHOPR | | | | IM DS | | + + + + | 2017-06-18 00:00 | ALBUTEROL SULFATE | [facility] | + + + + | 2017-06-18 00:00 | ALBUTEROL SULFATE | [facility] | + + + + | 2017-06-18 00:00 | ALBUTEROL SULFATE | [facility] | + + + + | 2017-06-18 00:00 | ALBUTEROL SULFATE | [facility] | + + + + | 2017-06-18 00:00 | ALBUTEROL SULFATE | [facility] | + + + + | 2017-06-18 00:00 | ALBUTEROL SULFATE | [facility] | + + + + | 2017-06-18 00:00 | ALBUTEROL SULFATE | [facility] | + + + + | 2017-06-18 00:00 | ALBUTEROL SULFATE | [facility] | + + + + | 2017-06-18 00:00 | ALBUTEROL SULFATE | [facility] | + + + + | 2017-06-18 00:00 | ALBUTEROL SULFATE | [facility] | + + + + | 2017-08-07 00:00 | ALBUTEROL SULFATE | [facility] | + + + + | 2017-08-07 00:00 | ALBUTEROL SULFATE | [facility] | + + + + | 2017-08-07 00:00 | ALBUTEROL SULFATE | [facility] | + + + + | 2017-08-07 00:00 | ALBUTEROL SULFATE | [facility] | + + + + | 2017-08-07 00:00 | ALBUTEROL SULFATE | [facility] | + + + + | 2017-08-07 00:00 | ALBUTEROL SULFATE | [facility] | + + + + | 2017-08-07 00:00 | ALBUTEROL SULFATE | [facility] | + + + + | 2017-08-07 00:00 | ALBUTEROL SULFATE | [facility] | + + + + | 2017-08-07 00:00 | ALBUTEROL SULFATE | [facility] | + + + + | 2017-08-07 00:00 | ALBUTEROL SULFATE | [facility] | + + + + | 2022-02-03 00:00 | ONDANSETRON | [facility] | + + + + | 2022-02-05 00:00 | ONDANSETRON | [facility] | + + + + | 2022-02-06 00:00 | ONDANSETRON | [facility] | + + + + | 2022-02-06 00:00 | ONDANSETRON | [facility] | + + + + | 2022-02-07 00:00 | ONDANSETRON | [facility] | + + + + | 2022-02-10 00:00 | ONDANSETRON | [facility] | + + + + | 2022-02-16 00:00 | ONDANSETRON | [facility] | + + + + | 2022-03-14 00:00 | ONDANSETRON | [facility] | + + + + | 2022-03-19 00:00 | ONDANSETRON | [facility] | + + + + | 2022-03-22 00:00 | ONDANSETRON | [facility] | + + + + | 2022-10-13 00:00 | ONDANSETRON | [facility] | + + + + | 2022-10-31 00:00 | ONDANSETRON | [facility] | + + + + | 2022-11-21 00:00 | ONDANSETRON | [facility] | + + + + | 2022-11-22 00:00 | ONDANSETRON | [facility] | + + + + | 2022-11-23 00:00 | ONDANSETRON | [facility] | + + + + | 2022-12-16 00:00 | ONDANSETRON | [facility] | + + + + | 2022-12-21 00:00 | ONDANSETRON | [facility] | + + + + | 2023-01-01 00:00 | ONDANSETRON | [facility] | + + + + | 2023-01-10 00:00 | ONDANSETRON | [facility] | + + + + | 2023-01-27 00:00 | ONDANSETRON | [facility] | + + + + | 2023-01-29 00:00 | ONDANSETRON | [facility] | + + + + | 2023-02-14 00:00 | ONDANSETRON | [facility] | + + + + | 2023-02-15 00:00 | ONDANSETRON | [facility] | + + + + | 2023-02-16 00:00 | ONDANSETRON | [facility] | + + + + | 2023-02-16 00:00 | ONDANSETRON | [facility] | + + + + | 2020-12-15 00:00 | MECLIZINE HCL | [facility] | + + + + | 2020-12-15 00:00 | MECLIZINE HCL | [facility] | + + + + | 2020-12-15 00:00 | MECLIZINE HCL | [facility] | + + + + | 2020-12-15 00:00 | MECLIZINE HCL | [facility] | + + + + | 2020-12-15 00:00 | MECLIZINE HCL | [facility] | + + + + | 2020-12-15 00:00 | MECLIZINE HCL | [facility] | + + + + | 2020-12-15 00:00 | MECLIZINE HCL | [facility] | + + + + | 2020-12-15 00:00 | MECLIZINE HCL | [facility] | + + + + | 2020-12-15 00:00 | MECLIZINE HCL | [facility] | + + + + | 2020-12-15 00:00 | MECLIZINE HCL | [facility] | + + + + Problems + + + + | date | description | facility | + + + + | 2016-05-14 00:00 | Encounter for medication | [facility] | | | refill | | + + + + | 2016-05-14 00:00 | Encounter for medication | [facility] | | | refill | | + + + + | 2016-05-14 00:00 | Encounter for medication | [facility] | | | refill | | + + + + | 2016-05-14 00:00 | Encounter for medication | [facility] | | | refill | | + + + + | 2016-05-14 00:00 | Encounter for medication | [facility] | | | refill | | + + + + | 2016-05-14 00:00 | Encounter for medication | [facility] | | | refill | | + + + + | 2016-05-14 00:00 | Encounter for medication | [facility] | | | refill | | + + + + | 2016-05-14 00:00 | Encounter for medication | [facility] | | | refill | | + + + + | 2016-05-14 00:00 | Encounter for medication | [facility] | | | refill | | + + + + | 2016-05-14 00:00 | Encounter for medication | [facility] | | | refill | | + + + + | 2016-08-19 00:00 | Encounter for medical | [facility] | | | screening examination | | + + + + | 2016-08-19 00:00 | Encounter for medical | [facility] | | | screening examination | | + + + + | 2016-08-19 00:00 | Encounter for medical | [facility] | | | screening examination | | + + + + | 2016-08-19 00:00 | Encounter for medical | [facility] | | | screening examination | | + + + + | 2016-08-19 00:00 | Encounter for medical | [facility] | | | screening examination | | + + + + | 2016-08-19 00:00 | Encounter for medical | [facility] | | | screening examination | | + + + + | 2016-08-19 00:00 | Encounter for medical | [facility] | | | screening examination | | + + + + | 2016-08-19 00:00 | Encounter for medical [facility] | | | screening examination | | + + + + | 2016-08-19 00:00 | Encounter for medical [facility] | | | screening examination | | + + + + | 2016-08-19 00:00 | Encounter for medical [facility] | | | screening examination | | + + + + | 2016-10-10 00:00 | Constipation | [facility] | + + + + | 2016-10-10 00:00 | Constipation | [facility] | + + + + | 2016-10-10 00:00 | Constipation | [facility] | + + + + | 2016-10-10 00:00 | Constipation | [facility] | + + + + | 2016-10-10 00:00 | Constipation | [facility] | + + + + | 2016-10-10 00:00 | Constipation | [facility] | + + + + | 2016-10-10 00:00 | Constipation | [facility] | + + + + | 2016-10-10 00:00 | Constipation | [facility] | + + + + | 2016-10-10 00:00 | Constipation | [facility] | + + + + | 2016-10-10 00:00 | Constipation | [facility] | + + + + | 2016-10-10 00:00 | Nonspecific abdominal pain | [facility] | | | | | + + + + | 2016-10-10 00:00 | Nonspecific abdominal pain | [facility] | | | | | + + + + | 2016-10-10 00:00 | Nonspecific abdominal pain | [facility] | | | | | + + + + | 2016-10-10 00:00 | Nonspecific abdominal pain | [facility] | | | | | + + + + | 2016-10-10 00:00 | Nonspecific abdominal pain | [facility] | | | | | + + + + | 2016-10-10 00:00 | Nonspecific abdominal pain | [facility] | | | | | + + + + | 2016-10-10 00:00 | Nonspecific abdominal pain | [facility] | | | | | + + + + | 2016-10-10 00:00 | Nonspecific abdominal pain | [facility] | | | | | + + + + | 2016-10-10 00:00 | Nonspecific abdominal pain | [facility] | | | | | + + + + | 2016-10-10 00:00 | Nonspecific abdominal pain | [facility] | | | | | + + + + | 2016-10-31 00:00 | Methamphetamine abuse | [facility] | + + + + | 2016-10-31 00:00 | Methamphetamine abuse | [facility] | + + + + | 2016-10-31 00:00 | Methamphetamine abuse | [facility] | + + + + | 2016-10-31 00:00 | Methamphetamine abuse | [facility] | + + + + | 2016-10-31 00:00 | Methamphetamine abuse | [facility] | + + + + | 2016-10-31 00:00 | Methamphetamine abuse | [facility] | + + + + | 2016-10-31 00:00 | Methamphetamine abuse | [facility] | + + + + | 2016-10-31 00:00 | Methamphetamine abuse | [facility] | + + + + | 2016-10-31 00:00 | Methamphetamine abuse | [facility] | + + + + | 2016-10-31 00:00 | Methamphetamine abuse | [facility] | + + + + | 2016-10-31 00:00 | Chronic abdominal pain | [facility] | + + + + | 2016-10-31 00:00 | Chronic abdominal pain | [facility] | + + + + | 2016-10-31 00:00 | Chronic abdominal pain | [facility] | + + + + | 2016-10-31 00:00 | Chronic abdominal pain | [facility] | + + + + | 2016-10-31 00:00 | Chronic abdominal pain | [facility] | + + + + | 2016-10-31 00:00 | Chronic abdominal pain | [facility] | + + + + | 2016-10-31 00:00 | Chronic abdominal pain | [facility] | + + + + | 2016-10-31 00:00 | Chronic abdominal pain | [facility] | + + + + | 2016-10-31 00:00 | Chronic abdominal pain | [facility] | + + + + | 2016-10-31 00:00 | Chronic abdominal pain | [facility] | + + + + | 2016-10-31 00:00 | Weight loss | [facility] | + + + + | 2016-10-31 00:00 | Weight loss | [facility] | + + + + | 2016-10-31 00:00 | Weight loss | [facility] | + + + + | 2016-10-31 00:00 | Weight loss | [facility] | + + + + | 2016-10-31 00:00 | Weight loss | [facility] | + + + + | 2016-10-31 00:00 | Weight loss | [facility] | + + + + | 2016-10-31 00:00 | Weight loss | [facility] | + + + + | 2016-10-31 00:00 | Weight loss | [facility] | + + + + | 2016-10-31 00:00 | Weight loss | [facility] | + + + + | 2016-10-31 00:00 | Weight loss | [facility] | + + + + | 2016-11-17 00:00 | Cellulitis | [facility] | + + + + | 2016-11-17 00:00 | Cellulitis | [facility] | + + + + | 2016-11-17 00:00 | Cellulitis | [facility] | + + + + | 2016-11-17 00:00 | Cellulitis | [facility] | + + + + | 2016-11-17 00:00 | Cellulitis | [facility] | + + + + | 2016-11-17 00:00 | Cellulitis | [facility] | + + + + | 2016-11-17 00:00 | Cellulitis | [facility] | + + + + | 2016-11-17 00:00 | Cellulitis | [facility] | + + + + | 2016-11-17 00:00 | Cellulitis | [facility] | + + + + | 2016-11-17 00:00 | Cellulitis | [facility] | + + + + | 2017-01-04 00:00 | 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 | | + + + + | 2017-01-04 00:00 | 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 | | + + + + | 2017-01-04 00:00 | 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 | | + + + + | 2017-01-04 00:00 | 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 | | + + + + | 2017-01-04 00:00 | 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 | | + + + + | 2017-01-04 00:00 | 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 | | + + + + | 2017-01-04 00:00 | 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 | | + + + + | 2017-01-04 00:00 | 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 | | + + + + | 2017-01-04 00:00 | 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 | | + + + + | 2017-01-04 00:00 | 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 | | + + + + | 2017-06-09 00:00 | Patient left without being | [facility] | | | seen | | + + + + | 2017-06-09 00:00 | Patient left without being | [facility] | | | seen | | + + + + | 2017-06-09 00:00 | Patient left without being | [facility] | | | seen | | + + + + | 2017-06-09 00:00 | Patient left without being | [facility] | | | seen | | + + + + | 2017-06-09 00:00 | Patient left without being | [facility] | | | seen | | + + + + | 2017-06-09 00:00 | Patient left without being | [facility] | | | seen | | + + + + | 2017-06-09 00:00 | Patient left without being | [facility] | | | seen | | + + + + | 2017-06-09 00:00 | Patient left without being | [facility] | | | seen | | + + + + | 2017-06-09 00:00 | Patient left without being | [facility] | | | seen | | + + + + | 2017-06-09 00:00 | Patient left without being | [facility] | | | seen | | + + + + | 2017-06-18 00:00 | Obstructive chronic | [facility] | | | bronchitis with | | | | exacerbation | | + + + + | 2017-06-18 00:00 | Obstructive chronic | [facility] | | | bronchitis with | | | | exacerbation | | + + + + | 2017-06-18 00:00 | Obstructive chronic | [facility] | | | bronchitis with | | | | exacerbation | | + + + + | 2017-06-18 00:00 | Obstructive chronic | [facility] | | | bronchitis with | | | | exacerbation | | + + + + | 2017-06-18 00:00 | Obstructive chronic | [facility] | | | bronchitis with | | | | exacerbation | | + + + + | 2017-06-18 00:00 | Obstructive chronic | [facility] | | | bronchitis with | | | | exacerbation | | + + + + | 2017-06-18 00:00 | Obstructive chronic | [facility] | | | bronchitis with | | | | exacerbation | | + + + + | 2017-06-18 00:00 | Obstructive chronic | [facility] | | | bronchitis with | | | | exacerbation | | + + + + | 2017-06-18 00:00 | Obstructive chronic | [facility] | | | bronchitis with | | | | exacerbation | | + + + + | 2017-06-18 00:00 | Obstructive chronic | [facility] | | | bronchitis with | | | | exacerbation | | + + + + | 2017-06-18 00:00 | Dyspnea on exertion | [facility] | + + + + | 2017-06-18 00:00 | Dyspnea on exertion | [facility] | + + + + | 2017-06-18 00:00 | Dyspnea on exertion | [facility] | + + + + | 2017-06-18 00:00 | Dyspnea on exertion | [facility] | + + + + | 2017-06-18 00:00 | Dyspnea on exertion | [facility] | + + + + | 2017-06-18 00:00 | Dyspnea on exertion | [facility] | + + + + | 2017-06-18 00:00 | Dyspnea on exertion | [facility] | + + + + | 2017-06-18 00:00 | Dyspnea on exertion | [facility] | + + + + | 2017-06-18 00:00 | Dyspnea on exertion | [facility] | + + + + | 2017-06-18 00:00 | Dyspnea on exertion | [facility] | + + + + | 2017-08-07 00:00 | Bronchitis | [facility] | + + + + | 2017-08-07 00:00 | Bronchitis | [facility] | + + + + | 2017-08-07 00:00 | Bronchitis | [facility] | + + + + | 2017-08-07 00:00 | Bronchitis | [facility] | + + + + | 2017-08-07 00:00 | Bronchitis | [facility] | + + + + | 2017-08-07 00:00 | Bronchitis | [facility] | + + + + | 2017-08-07 00:00 | Bronchitis | [facility] | + + + + | 2017-08-07 00:00 | Bronchitis | [facility] | + + + + | 2017-08-07 00:00 | Bronchitis | [facility] | + + + + | 2017-08-07 00:00 | Bronchitis | [facility] | + + + + | 2017-09-07 00:00 | Paronychia of finger of [facility] | | | right hand | | + + + + | 2017-09-07 00:00 | Paronychia of finger of [facility] | | | right hand | | + + + + | 2017-09-07 00:00 | Paronychia of finger of [facility] | | | right hand | | + + + + | 2017-09-07 00:00 | Paronychia of finger of [facility] | | | right hand | | + + + + | 2017-09-07 00:00 | Paronychia of finger of [facility] | | | right hand | | + + + + | 2017-09-07 00:00 | Paronychia of finger of [facility] | | | right hand | | + + + + | 2017-09-07 00:00 | Paronychia of finger of [facility] | | | right hand | | + + + + | 2017-09-07 00:00 | Paronychia of finger of [facility] | | | right hand | | + + + + | 2017-09-07 00:00 | Paronychia of finger of [facility] | | | right hand | | + + + + | 2017-09-07 00:00 | Paronychia of finger of | [facility] | | | right hand | | + + + + | 2017-09-28 00:00 | Upper respiratory tract | [facility] | | | infection | | + + + + | 2017-09-28 00:00 | Upper respiratory tract | [facility] | | | infection | | + + + + | 2017-09-28 00:00 | Upper respiratory tract | [facility] | | | infection | | + + + + | 2017-09-28 00:00 | Upper respiratory tract | [facility] | | | infection | | + + + + | 2017-09-28 00:00 | Upper respiratory tract | [facility] | | | infection | | + + + + | 2017-09-28 00:00 | Upper respiratory tract | [facility] | | | infection | | + + + + | 2017-09-28 00:00 | Upper respiratory tract | [facility] | | | infection | | + + + + | 2017-09-28 00:00 | Upper respiratory tract | [facility] | | | infection | | + + + + | 2017-09-28 00:00 | Upper respiratory tract | [facility] | | | infection | | + + + + | 2017-09-28 00:00 | Upper respiratory tract | [facility] | | | infection | | + + + + | 2019-01-27 00:00 | Cellulitis of lower | [facility] | | | extremity | | + + + + | 2019-01-27 00:00 | Cellulitis of lower | [facility] | | | extremity | | + + + + | 2019-01-27 00:00 | Cellulitis of lower | [facility] | | | extremity | | + + + + | 2019-01-27 00:00 | Cellulitis of lower | [facility] | | | extremity | | + + + + | 2019-01-27 00:00 | Cellulitis of lower | [facility] | | | extremity | | + + + + | 2019-01-27 00:00 | Cellulitis of lower | [facility] | | | extremity | | + + + + | 2019-01-27 00:00 | Cellulitis of lower | [facility] | | | extremity | | + + + + | 2019-01-27 00:00 | Cellulitis of lower | [facility] | | | extremity | | + + + + | 2019-01-27 00:00 | Cellulitis of lower | [facility] | | | extremity | | + + + + | 2019-01-27 00:00 | Cellulitis of lower | [facility] | | | extremity | | + + + + | 2020-01-23 00:00 | Gout | [facility] | + + + + | 2020-01-23 00:00 | Gout | [facility] | + + + + | 2020-01-23 00:00 | Gout | [facility] | + + + + | 2020-01-23 00:00 | Gout | [facility] | + + + + | 2020-01-23 00:00 | Gout | [facility] | + + + + | 2020-01-23 00:00 | Gout | [facility] | + + + + | 2020-01-23 00:00 | Gout | [facility] | + + + + | 2020-01-23 00:00 | Gout | [facility] | + + + + | 2020-01-23 00:00 | Gout | [facility] | + + + + | 2020-01-23 00:00 | Gout | [facility] | + + + + | 2020-05-09 00:00 | Rectal fissure | [facility] | + + + + | 2020-05-09 00:00 | Rectal fissure | [facility] | + + + + 2020-05-09 00:00 | Rectal fissure | [facility] | + + + + | 2020-05-09 00:00 | Rectal fissure | [facility] | + + + + | 2020-05-09 00:00 | Rectal fissure | [facility] | + + + + | 2020-05-09 00:00 | Rectal fissure | [facility] | + + + + | 2020-05-09 00:00 | Rectal fissure | [facility] | + + + + | 2020-05-09 00:00 | Rectal fissure | [facility] | + + + + | 2020-05-09 00:00 | Rectal fissure | [facility] | + + + + | 2020-05-09 00:00 | Rectal fissure | [facility] | + + + + 2020-07-15 00:00 | Cannabis abuse | [facility] | + + + + | 2020-07-15 00:00 | Cannabis abuse | [facility] | + + + + | 2020-07-15 00:00 | Cannabis abuse | [facility] | + + + + | 2020-07-15 00:00 | Cannabis abuse | [facility] | + + + + | 2020-07-15 00:00 | Cannabis abuse | [facility] | + + + + 2020-07-15 00:00 | Cannabis abuse | [facility] | + + + + 2020-07-15 00:00 | Cannabis abuse | [facility] | + + + + | 2020-07-15 00:00 | Cannabis abuse | [facility] | + + + + | 2020-07-15 00:00 | Cannabis abuse | [facility] | + + + + | 2020-07-15 00:00 | Cannabis abuse | [facility] | + + + + 2020-07-15 00:00 | Acute kidney injury | [facility] | + + + + 2020-07-15 00:00 | Acute kidney injury | [facility] | + + + + | 2020-07-15 00:00 | Acute kidney injury | [facility] | + + + + | 2020-07-15 00:00 | Acute kidney injury | [facility] | + + + + | 2020-07-15 00:00 | Acute kidney injury | [facility] | + + + + 2020-07-15 00:00 | Acute kidney injury | [facility] | + + + + 2020-07-15 00:00 | Acute kidney injury | [facility] | + + + + | 2020-07-15 00:00 | Acute kidney injury | [facility] | + + + + | 2020-07-15 00:00 | Acute kidney injury | [facility] | + + + + | 2020-07-15 00:00 | Acute kidney injury | [facility] | + + + + 2020-07-15 00:00 | Elevated transaminase | [facility] | | | measurement | | + + + + 2020-07-15 00:00 | Elevated transaminase | [facility] | | | measurement | | + + + + | 2020-07-15 00:00 | Elevated transaminase | [facility] | | | measurement | | + + + + | 2020-07-15 00:00 | Elevated transaminase | [facility] | | | measurement | | + + + + | 2020-07-15 00:00 | Elevated transaminase | [facility] | | | measurement | | + + + + | 2020-07-15 00:00 | Elevated transaminase | [facility] | | | measurement | | + + + + | 2020-07-15 00:00 | Elevated transaminase | [facility] | | | measurement | | + + + + | 2020-07-15 00:00 | Elevated transaminase | [facility] | | | measurement | | + + + + | 2020-07-15 00:00 | Elevated transaminase | [facility] | | | measurement | | + + + + | 2020-07-15 00:00 | Elevated transaminase | [facility] | | | measurement | | + + + + | 2020-07-15 00:00 | Abrasion of left cornea | [facility] | + + + + | 2020-07-15 00:00 | Abrasion of left cornea | [facility] | + + + + | 2020-07-15 00:00 | Abrasion of left cornea | [facility] | + + + + | 2020-07-15 00:00 | Abrasion of left cornea | [facility] | + + + + 2020-07-15 00:00 | Abrasion of left cornea | [facility] | + + + + | 2020-07-15 00:00 | Abrasion of left cornea | [facility] | + + + + | 2020-07-15 00:00 | Abrasion of left cornea | [facility] | + + + + | 2020-07-15 00:00 | Abrasion of left cornea | [facility] | + + + + | 2020-07-15 00:00 | Abrasion of left cornea | [facility] | + + + + | 2020-07-15 00:00 | Abrasion of left cornea | [facility] | + + + + | 2020-09-17 00:00 | 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[facility] | + + + + | 2020-09-17 00:00 | 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[facility] | + + + + | 2020-09-17 00:00 | 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[facility] | + + + + | 2020-09-17 00:00 | 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[facility] | + + + + | 2020-09-17 00:00 | 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[facility] | + + + + | 2020-09-17 00:00 | 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[facility] | + + + + | 2020-09-17 00:00 | 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[facility] | + + + + | 2020-09-17 00:00 | 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[facility] | + + + + | 2020-09-17 00:00 | 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[facility] | + + + + | 2020-09-17 00:00 | 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[facility] | + + + + | 2020-11-13 00:00 | Drug use | [facility] | + + + + | 2020-11-13 00:00 | Drug use | [facility] | + + + + | 2020-11-13 00:00 | Drug use | [facility] | + + + + | 2020-11-13 00:00 | Drug use | [facility] | + + + + | 2020-11-13 00:00 | Drug use | [facility] | + + + + | 2020-11-13 00:00 | Drug use | [facility] | + + + + | 2020-11-13 00:00 | Drug use | [facility] | + + + + | 2020-11-13 00:00 | Drug use | [facility] | + + + + | 2020-11-13 00:00 | Drug use | [facility] | + + + + | 2020-11-13 00:00 | Drug use | [facility] | + + + + | 2020-12-15 00:00 | Vertigo | [facility] | + + + + | 2020-12-15 00:00 | Vertigo | [facility] | + + + + | 2020-12-15 00:00 | Vertigo | [facility] | + + + + | 2020-12-15 00:00 | Vertigo | [facility] | + + + + | 2020-12-15 00:00 | Vertigo | [facility] | + + + + | 2020-12-15 00:00 | Vertigo | [facility] | + + + + | 2020-12-15 00:00 | Vertigo | [facility] | + + + + | 2020-12-15 00:00 | Vertigo | [facility] | + + + + | 2020-12-15 00:00 | Vertigo | [facility] | + + + + | 2020-12-15 00:00 | Vertigo | [facility] | + + + + | 2021-02-08 00:00 | Eczema of both hands | [facility] | + + + + | 2021-02-08 00:00 | Eczema of both hands | [facility] | + + + + | 2021-02-08 00:00 | Eczema of both hands | [facility] | + + + + | 2021-02-08 00:00 | Eczema of both hands | [facility] | + + + + | 2021-02-08 00:00 | Eczema of both hands | [facility] | + + + + | 2021-02-08 00:00 | Eczema of both hands | [facility] | + + + + | 2021-02-08 00:00 | Eczema of both hands | [facility] | + + + + | 2021-02-08 00:00 | Eczema of both hands | [facility] | + + + + | 2021-02-08 00:00 | Eczema of both hands | [facility] | + + + + | 2021-02-08 00:00 | Eczema of both hands | [facility] | + + + + | 2021-04-03 00:00 | Dehydration | [facility] | + + + + | 2021-04-03 00:00 | Dehydration | [facility] | + + + + | 2021-04-03 00:00 | Dehydration | [facility] | + + + + | 2021-04-03 00:00 | Dehydration | [facility] | + + + + | 2021-04-03 00:00 | Dehydration | [facility] | + + + + | 2021-04-03 00:00 | Dehydration | [facility] | + + + + | 2021-04-03 00:00 | Dehydration | [facility] | + + + + | 2021-04-03 00:00 | Dehydration | [facility] | + + + + | 2021-04-03 00:00 | Dehydration | [facility] | + + + + | 2021-04-03 00:00 | Dehydration | [facility] | + + + + | 2021-04-03 00:00 | Enteritis | [facility] | + + + + | 2021-04-03 00:00 | Enteritis | [facility] | + + + + | 2021-04-03 00:00 | Enteritis | [facility] | + + + + | 2021-04-03 00:00 | Enteritis | [facility] | + + + + | 2021-04-03 00:00 | Enteritis | [facility] | + + + + | 2021-04-03 00:00 | Enteritis | [facility] | + + + + | 2021-04-03 00:00 | Enteritis | [facility] | + + + + | 2021-04-03 00:00 | Enteritis | [facility] | + + + + | 2021-04-03 00:00 | Enteritis | [facility] | + + + + | 2021-04-03 00:00 | Enteritis | [facility] | + + + + | 2021 00:00 | Parasite not detected | [facility] | + + + + | 2021 00:00 | Parasite not detected | [facility] | + + + + | 2021 00:00 | Parasite not detected | [facility] | + + + + | 2021 00:00 | Parasite not detected | [facility] | + + + + | 2021 00:00 | Parasite not detected | [facility] | + + + + | 2021 00:00 | Parasite not detected | [facility] | + + + + | 2021 00:00 | Parasite not detected | [facility] | + + + + | 2021 00:00 | Parasite not detected | [facility] | + + + + | 2021 00:00 | Parasite not detected | [facility] | + + + + | 2021 00:00 | Parasite not detected | [facility] | + + + + | 2021 00:00 | Pain of hand | [facility] | + + + + | 2021 00:00 | Pain of hand | [facility] | + + + + | 2021 00:00 | Pain of hand | [facility] | + + + + | 2021 00:00 | Pain of hand | [facility] | + + + + | 2021 00:00 | Pain of hand | [facility] | + + + + | 2021 00:00 | Pain of hand | [facility] | + + + + | 2021 00:00 | Pain of hand | [facility] | + + + + | 2021 00:00 | Pain of hand | [facility] | + + + + | 2021 00:00 | Pain of hand | [facility] | + + + + | 2021 00:00 | Pain of hand | [facility] | + + + + | 2021-05-18 00:00 | Viral infection | [facility] | + + + + | 2021-05-18 00:00 | Viral infection | [facility] | + + + + | 2021-05-18 00:00 | Viral infection | [facility] | + + + + | 2021-05-18 00:00 | Viral infection | [facility] | + + + + | 2021-05-18 00:00 | Viral infection | [facility] | + + + + | 2021-05-18 00:00 | Viral infection | [facility] | + + + + | 2021-05-18 00:00 | Viral infection | [facility] | + + + + | 2021-05-18 00:00 | Viral infection | [facility] | + + + + | 2021-05-18 00:00 | Viral infection | [facility] | + + + + | 2021-05-18 00:00 | Viral infection | [facility] | + + + + | 2021-07-02 00:00 | Acute bronchitis | [facility] | + + + + | 2021-07-02 00:00 | Acute bronchitis | [facility] | + + + + | 2021-07-02 00:00 | Acute bronchitis | [facility] | + + + + | 2021-07-02 00:00 | Acute bronchitis | [facility] | + + + + | 2021-07-02 00:00 | Acute bronchitis | [facility] | + + + + | 2021-07-02 00:00 | Acute bronchitis | [facility] | + + + + | 2021-07-02 00:00 | Acute bronchitis | [facility] | + + + + | 2021-07-02 00:00 | Acute bronchitis | [facility] | + + + + | 2021-07-02 00:00 | Acute bronchitis | [facility] | + + + + | 2021-07-02 00:00 | Acute bronchitis | [facility] | + + + + | 2021-07-13 00:00 | Dizziness | [facility] | + + + + | 2021-07-13 00:00 | Dizziness | [facility] | + + + + | 2021-07-13 00:00 | Dizziness | [facility] | + + + + | 2021-07-13 00:00 | Dizziness | [facility] | + + + + | 2021-07-13 00:00 | Dizziness | [facility] | + + + + | 2021-07-13 00:00 | Dizziness | [facility] | + + + + | 2021-07-13 00:00 | Dizziness | [facility] | + + + + | 2021-07-13 00:00 | Dizziness | [facility] | + + + + | 2021-07-13 00:00 | Dizziness | [facility] | + + + + | 2021-07-13 00:00 | Dizziness | [facility] | + + + + | 2021-08-27 00:00 | Schizoaffective disorder | [facility] | + + + + | 2021-08-27 00:00 | Schizoaffective disorder | [facility] | + + + + | 2021-08-27 00:00 | Schizoaffective disorder | [facility] | + + + + | 2021-08-27 00:00 | Schizoaffective disorder | [facility] | + + + + | 2021-08-27 00:00 | Schizoaffective disorder | [facility] | + + + + | 2021-08-27 00:00 | Schizoaffective disorder | [facility] | + + + + | 2021-08-27 00:00 | Schizoaffective disorder | [facility] | + + + + | 2021-08-27 00:00 | Schizoaffective disorder | [facility] | + + + + | 2021-08-27 00:00 | Schizoaffective disorder | [facility] | + + + + | 2021-08-27 00:00 | Schizoaffective disorder | [facility] | + + + + | 2021-08-27 00:00 | Stomatitis | [facility] | + + + + | 2021-08-27 00:00 | Stomatitis | [facility] | + + + + | 2021-08-27 00:00 | Stomatitis | [facility] | + + + + | 2021-08-27 00:00 | Stomatitis | [facility] | + + + + | 2021-08-27 00:00 | Stomatitis | [facility] | + + + + | 2021-08-27 00:00 | Stomatitis | [facility] | + + + + | 2021-08-27 00:00 | Stomatitis | [facility] | + + + + | 2021-08-27 00:00 | Stomatitis | [facility] | + + + + | 2021-08-27 00:00 | Stomatitis | [facility] | + + + + | 2021-08-27 00:00 | Stomatitis | [facility] | + + + + | 2021-09-22 00:00 | Vomiting | [facility] | + + + + | 2021-09-22 00:00 | Vomiting | [facility] | + + + + | 2021-09-22 00:00 | Vomiting | [facility] | + + + + | 2021-09-22 00:00 | Vomiting | [facility] | + + + + | 2021-09-22 00:00 | Vomiting | [facility] | + + + + | 2021-09-22 00:00 | Vomiting | [facility] | + + + + | 2021-09-22 00:00 | Vomiting | [facility] | + + + + | 2021-09-22 00:00 | Vomiting | [facility] | + + + + | 2021-09-22 00:00 | Vomiting | [facility] | + + + + | 2021-09-22 00:00 | Vomiting | [facility] | + + + + | 2021-11-12 00:00 | Pneumonia | [facility] | + + + + | 2021-11-12 00:00 | Pneumonia | [facility] | + + + + | 2021-11-12 00:00 | Pneumonia | [facility] | + + + + | 2021-11-12 00:00 | Pneumonia | [facility] | + + + + | 2021-11-12 00:00 | Pneumonia | [facility] | + + + + | 2021-11-12 00:00 | Pneumonia | [facility] | + + + + | 2021-11-12 00:00 | Pneumonia [facility] [facility] | + + + + | 2021-11-12 00:00 | Pneumonia | [facility] | + + + + | 2021-11-12 00:00 | Pneumonia | [facility] | + + + + | 2021-11-12 00:00 | Pneumonia | [facility] | + + + + | 2022-01-03 00:00 | Dental abscess | [facility] | + + + + | 2022-01-03 00:00 | Dental abscess | [facility] | + + + + | 2022-01-03 00:00 | Dental abscess | [facility] | + + + + | 2022-01-03 00:00 | Dental abscess | [facility] | + + + + | 2022-01-03 00:00 | Dental abscess | [facility] | + + + + | 2022-01-03 00:00 | Dental abscess | [facility] | + + + + | 2022-01-03 00:00 | Dental abscess | [facility] | + + + + | 2022-01-03 00:00 | Dental abscess | [facility] | + + + + | 2022-01-03 00:00 | Dental abscess | [facility] | + + + + | 2022-01-03 00:00 | Dental abscess | [facility] | + + + + | 2022-01-14 00:00 | Parasitic infestation | [facility] | + + + + | 2022-01-14 00:00 | Parasitic infestation | [facility] | + + + + | 2022-01-14 00:00 | Parasitic infestation | [facility] | + + + + | 2022-01-14 00:00 | Parasitic infestation | [facility] | + + + + | 2022-01-14 00:00 | Parasitic infestation | [facility] | + + + + | 2022-01-14 00:00 | Parasitic infestation | [facility] | + + + + | 2022-01-14 00:00 | Parasitic infestation | [facility] | + + + + | 2022-01-14 00:00 | Parasitic infestation | [facility] | + + + + | 2022-01-14 00:00 | Parasitic infestation | [facility] | + + + + | 2022-01-14 00:00 | Parasitic infestation | [facility] | + + + + | 2022-01-23 00:00 | Cellulitis of finger of | [facility] | | | left hand | | + + + + | 2022-01-23 00:00 | Cellulitis of finger of | [facility] | | | left hand | | + + + + | 2022-01-23 00:00 | Cellulitis of finger of | [facility] | | | left hand | | + + + + | 2022-01-23 00:00 | Cellulitis of finger of [facility] | | | left hand | | + + + + | 2022-01-23 00:00 | Cellulitis of finger of [facility] | | | left hand | | + + + + | 2022-01-23 00:00 | Cellulitis of finger of [facility] | | | left hand | | + + + + | 2022-01-23 00:00 | Cellulitis of finger of [facility] | | | left hand | | + + + + | 2022-01-23 00:00 | Cellulitis of finger of | [facility] | | | left hand | | + + + + | 2022-01-23 00:00 | Cellulitis of finger of [facility] | | | left hand | | + + + + | 2022-01-23 00:00 | Cellulitis of finger of [facility] | | | left hand | | + + + + | 2022-01-25 00:00 | Swelling | [facility] | + + + + | 2022-01-25 00:00 | Swelling | [facility] | + + + + | 2022-01-25 00:00 | Swelling | [facility] | + + + + | 2022-01-25 00:00 | Swelling | [facility] | + + + + | 2022-01-25 00:00 | Swelling | [facility] | + + + + | 2022-01-25 00:00 | Swelling | [facility] | + + + + | 2022-01-25 00:00 | Swelling | [facility] | + + + + | 2022-01-25 00:00 | Swelling | [facility] | + + + + | 2022-01-25 00:00 | Swelling | [facility] | + + + + | 2022-01-25 00:00 | Swelling | [facility] | + + + + | 2022-01-28 00:00 | Cellulitis of left ring | [facility] | | | finger | | + + + + | 2022-01-28 00:00 | Cellulitis of left ring | [facility] | | | finger | | + + + + | 2022-01-28 00:00 | Cellulitis of left ring | [facility] | | | finger | | + + + + | 2022-01-28 00:00 | Cellulitis of left ring | [facility] | | | finger | | + + + + | 2022-01-28 00:00 | Cellulitis of left ring | [facility] | | | finger | | + + + + | 2022-01-28 00:00 | Cellulitis of left ring | [facility] | | | finger | | + + + + | 2022-01-28 00:00 | Cellulitis of left ring | [facility] | | | finger | | + + + + | 2022-01-28 00:00 | Cellulitis of left ring | [facility] | | | finger | | + + + + | 2022-01-28 00:00 | Cellulitis of left ring | [facility] | | | finger | | + + + + | 2022-01-28 00:00 | Cellulitis of left ring | [facility] | | | finger | | + + + + | 2022-02-10 00:00 | Injury of extremity | [facility] | + + + + | 2022-02-10 00:00 | Injury of extremity | [facility] | + + + + | 2022-02-10 00:00 | Injury of extremity | [facility] | + + + + | 2022-02-10 00:00 | Injury of extremity | [facility] | + + + + | 2022-02-10 00:00 | Injury of extremity | [facility] | + + + + | 2022-02-10 00:00 | Injury of extremity | [facility] | + + + + | 2022-02-10 00:00 | Injury of extremity | [facility] | + + + + | 2022-02-10 00:00 | Injury of extremity | [facility] | + + + + | 2022-02-10 00:00 | Injury of extremity | [facility] | + + + + | 2022-03-10 00:00 | Cellulitis of thumb | [facility] | + + + + | 2022-03-10 00:00 | Cellulitis of thumb | [facility] | + + + + | 2022-03-10 00:00 | Cellulitis of thumb | [facility] | + + + + | 2022-03-10 00:00 | Cellulitis of thumb | [facility] | + + + + | 2022-03-10 00:00 | Cellulitis of thumb | [facility] | + + + + | 2022-03-10 00:00 | Cellulitis of thumb | [facility] | + + + + | 2022-03-10 00:00 | Cellulitis of thumb | [facility] | + + + + | 2022-03-10 00:00 | Cellulitis of thumb | [facility] | + + + + | 2022-03-10 00:00 | Cellulitis of thumb | [facility] | + + + + | 2022-03-10 00:00 | Formication | [facility] | + + + + | 2022-03-10 00:00 | Formication | [facility] | + + + + | 2022-03-10 00:00 | Formication | [facility] | + + + + | 2022-03-10 00:00 | Formication | [facility] | + + + + | 2022-03-10 00:00 | Formication | [facility] | + + + + | 2022-03-10 00:00 | Formication | [facility] | + + + + | 2022-03-10 00:00 | Formication | [facility] | + + + + | 2022-03-10 00:00 | Formication | [facility] | + + + + | 2022-03-10 00:00 | Formication | [facility] | + + + + | 2022-03-14 00:00 | 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[facility] | + + + + | 2022-03-14 00:00 | 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[facility] | + + + + | 2022-03-14 00:00 | 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[facility] | + + + + | 2022-03-14 00:00 | 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[facility] | + + + + | 2022-03-14 00:00 | 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[facility] | + + + + | 2022-03-14 00:00 | 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[facility] | + + + + | 2022-03-14 00:00 | 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[facility] | + + + + | 2022-03-14 00:00 | 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[facility] | + + + + | 2022-03-22 00:00 | Swelling of hand | [facility] | + + + + | 2022-03-22 00:00 | Swelling of hand | [facility] | + + + + | 2022-03-22 00:00 | Swelling of hand | [facility] | + + + + | 2022-03-22 00:00 | Swelling of hand | [facility] | + + + + | 2022-03-22 00:00 | Swelling of hand | [facility] | + + + + | 2022-03-22 00:00 | Swelling of hand | [facility] | + + + + | 2022-03-22 00:00 | Swelling of hand | [facility] | + + + + | 2022-03-22 00:00 | Swelling of hand | [facility] | + + + + [...] | 2022-11-23 00:00 | Dental caries | [facility] | + + + + | 2022-11-23 00:00 | Dental caries | [facility] | + + + + | 2022-11-23 00:00 | Dental caries | [facility] | + + + + | 2022-11-23 00:00 | Dental caries | [facility] | + + + + | 2022-11-23 00:00 | Dental caries | [facility] | + + + + | 2022-11-23 00:00 | Dental caries | [facility] | + + + + | 2022-11-23 00:00 | Dental caries | [facility] | + + + + | 2022-11-23 00:00 | Dental caries | [facility] | + + + + | 2022-11-23 00:00 | Abscess of face | [facility] | + + + + | 2022-11-23 00:00 | Abscess of face | [facility] | + + + + | 2022-11-23 00:00 | Abscess of face | [facility] | + + + + | 2022-11-23 00:00 | Abscess of face | [facility] | + + + + | 2022-11-23 00:00 | Abscess of face | [facility] | + + + + | 2022-11-23 00:00 | Abscess of face | [facility] | + + + + | 2022-11-23 00:00 | Abscess of face | [facility] | + + + + | 2022-11-23 00:00 | Abscess of face | [facility] | + + + + | 2022-12-16 00:00 | Dizziness of unknown | [facility] | | | etiology | | + + + + | 2022-12-16 00:00 | Dizziness of unknown | [facility] | | | etiology | | + + + + | 2022-12-16 00:00 | Dizziness of unknown | [facility] | | | etiology | | + + + + | 2022-12-16 00:00 | Dizziness of unknown | [facility] | | | etiology | | + + + + | 2022-12-16 00:00 | Dizziness of unknown | [facility] | | | etiology | | + + + + | 2022-12-16 00:00 | Dizziness of unknown | [facility] | | | etiology | | + + + + | 2022-12-16 00:00 | Dizziness of unknown | [facility] | | | etiology | | + + + + | 2022-12-16 00:00 | Dizziness of unknown | [facility] | | | etiology | [...] + + | 2022-12-16 20:45 | OTHER MEDICAL BILLING REPRESENTATIVE (CURRENT) | [facility] | | | DRUG [...] + + | 2022-12-21 12:34 | OTHER MEDICAL BILLING REPRESENTATIVE (CURRENT) | [facility] | | | DRUG THERAPY | | + + + + | 2023-01-01 00:00 | Infestation by Sarcoptes | [facility] | | | scabiei | | + + + + | 2023-01-01 00:00 | Infestation by Sarcoptes | [facility] | | | scabiei | | + + + + | 2023-01-01 00:00 | Infestation by Sarcoptes | [facility] | | | scabiei | | + + + + | 2023-01-01 00:00 | Infestation by Sarcoptes | [facility] | | | scabiei | | + + + + | 2023-01-01 00:00 | Infestation by Sarcoptes | [facility] | | | scabiei | | + + + + | 2023-01-01 00:00 | Hypothyroidism | [facility] | + + + + | 2023-01-01 00:00 | Hypothyroidism | [facility] | + + + + | 2023-01-01 00:00 | Hypothyroidism | [facility] | + + + + | 2023-01-01 00:00 | Hypothyroidism | [facility] | + + + + | 2023-01-01 00:00 | Hypothyroidism | [facility] | + + + + | 2023-01-01 00:00 | Hypertension | [facility] | + + + + | 2023-01-01 00:00 | Hypertension | [facility] | + + + + | 2023-01-01 00:00 | Hypertension | [facility] | + + + + | 2023-01-01 00:00 | Hypertension | [facility] | + + + + | 2023-01-01 00:00 | Hypertension | [facility] | + + + + [...] + + | 2023-01-01 18:29 | OTHER MEDICAL BILLING REPRESENTATIVE (CURRENT) | [facility] | | | DRUG [...] + + | 2023-01-10 07:21 | OTHER MEDICAL BILLING REPRESENTATIVE (CURRENT) | [facility] | | | DRUG THERAPY | | + + + + | 2023-01-27 00:00 | Chronic dermatitis of | [facility] | | | hands | | + + + + | 2023-01-27 00:00 | Chronic dermatitis of | [facility] | | | hands | | + + + + | 2023-01-27 00:00 | Chronic dermatitis of | [facility] | | | hands | | + + + + | 2023-01-27 00:00 | Chronic dermatitis of | [facility] | | | hands | [...] + + | 2023-01-27 09:48 | OTHER MEDICAL BILLING REPRESENTATIVE (CURRENT) | [facility] | | | DRUG THERAPY | | + + + + | 2023-01-29 00:00 | Eczema | [facility] | + + + + | 2023-01-29 00:00 | Eczema | [facility] | + + + + | 2023-01-29 00:00 | Eczema | [facility] | + + + + [...] + + | 2023-01-29 00:24 | OTHER CARE HOME (CURRENT) | [facility] | | | DRUG THERAPY | | + + + + | 2023-02-14 00:00 | Weakness | [facility] | + + + + | 2023-02-14 00:00 | Weakness | [facility] | + + + + | 2023-02-15 00:00 | Anxiety | [facility] | + + + + | 2023-02-15 00:00 | Anxiety | [facility] | + + + + | 2023-02-16 00:00 | Dry skin | [facility] | + + + + | 2023-02-16 00:00 | Dry skin | [facility] | + + + + [...] + + | 2023-02-16 06:39 | OTHER CARE HOME (CURRENT) | [facility] | | | [...] (missing) | | (unavailable | 05:36 | [facility] | | | | | [...] (missing) | | (unavailable | 05:36 | [facility] | | | | | [...] (missing) | | (unavailable | 05:36 | [facility] | | | | | [...] (missing) | | (unavailable | 01:45 | [facility] | | | | | [...] (missing) | | (unavailable | 12:35:07 | [facility] | | | | | [...] (missing) | | (unavailable | 12:35:07 | aTi | | | | | [...]
--- OUTSIDE RECORDS SUMMARY | 2023-02-26 19:08 | XMS ---
PreManage Notification: VALENTINO SORTO [employer] Events 5 event(s) in the past 18 months Most recent security events: Elopement at [facility] 11/21/2022 13:52 - Patient eloped before treatment completed. - Patient with suicidal and/or homicidal ideations eloped. - Patient eloped with IV in place. Details: Patient LWBS. Elopement at [facility] 10/31/2022 17:09 - Patient eloped before treatment completed. - Patient with suicidal and/or homicidal ideations eloped. - Patient eloped with IV in place. Details: Patient LWBS Elopement at [facility] 02/10/2022 06:38 - Patient eloped before treatment completed. - Patient with suicidal and/or homicidal ideations eloped. - Patient eloped with IV in place. Details: PATIENT LWBS CRITERIA MET - 6 ED Visits in 6 Months - Group Notification - [facility] - 2 Visits in 30 Days - [facility] - Has Care Guidelines CARE PROVIDERS -Ulysses- Dentist: Learning And Development Manager [facility] PHONE: [phone] JAMILA NORIEGA [facility] 01/24/2020-[facility] PHONE: [phone] [place] has no Care Guidelines for this patient. Care History Medical/Surgical 03/11/2022 [facility] ALERT KATHLEEN HAS BEEN TRYING TO CONTACT PATIENT. IF PATIENT IS SEEN IN THE ED PLEASE CONTACT KATHLEEN CRISIS LINE [phone]. KATHLEEN HAS A PHONE TO PROVIDE TO THE PATIENT. PLEASE LET PATIENT KNOW. KATHLEEN IS TRYING TO HELP WITH HOUSING RESOURCES AND WOULD LIKE TO FURTHER ASSIST. 09/02/2021 [facility] - MULTIPLE [...] BEING CONTACTED. E.D. VISIT COUNT (12 MO.) [address] [facility] [address] [facility] [place] [employer] [place] TOTAL 25 NOTE: Visits indicate total known visits. ED/UCC VISIT TRACKING (12 MO.) 02/26/2023 19:01 [facility] [place] TYPE: Emergency COMPLAINT: - SKIN PROBLEM 02/16/2023 22:21 [facility] [place] TYPE: Emergency COMPLAINT: - FLANK PAIN 02/16/2023 06:39 [facility] [place] TYPE: Emergency COMPLAINT: - HAND PAIN DIAGNOSES: - Anxiety disorder, unspecified - Essential (primary) hypertension - Nicotine dependence, unspecified, uncomplicated - Other buttermaker continuous churn (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 - Schizoaffective disorder, unspecified - Type 2 diabetes mellitus without complications - Xerosis cutis - Xerosis cutis 02/15/2023 00:29 [facility] [place] TYPE: Emergency COMPLAINT: - HEAT STRESSED 02/14/2023 14:30 [facility] [place] TYPE: Emergency COMPLAINT: - POSS HEAT STROKE 01/29/2023 00:24 [facility] [place] TYPE: Emergency COMPLAINT: - SKIN PROBLEM DIAGNOSES: - Anxiety disorder, unspecified - Dermatitis, unspecified - Essential (primary) hypertension - Nicotine dependence, unspecified, uncomplicated - Other buttermaker continuous churn (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 - Pain in left hand - Type 2 diabetes mellitus without complications 01/27/2023 09:48 [facility] [place] TYPE: Emergency COMPLAINT: - MEDICAL CLEARANCE DIAGNOSES: - Delusional disorders - Dermatitis, unspecified - Disorder of thyroid, unspecified - Essential (primary) hypertension - Nicotine dependence, unspecified, uncomplicated - Other buttermaker continuous churn (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 - Type 2 diabetes mellitus without complications 01/14/2023 10:54 [facility] Johny [facility] TYPE: Emergency DIAGNOSES: - Changes in skin texture - hands burning - Wound Check 01/13/2023 18:46 [facility] TYPE: Emergency DIAGNOSES: - Cellulitis of [...] - Nicotine dependence, unspecified, uncomplicated - Other senior living (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 - Other stimulant abuse, uncomplicated - Pain in left hand - Type 2 diabetes mellitus without complications 01/01/2023 18:29 [facility] [place] TYPE: Emergency COMPLAINT: - BUG BITES DIAGNOSES: - Essential (primary) hypertension - Nicotine dependence, unspecified, uncomplicated - Other senior living (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 - Other stimulant abuse, in remission - Scabies - Type 2 diabetes mellitus without complications 12/21/2022 12:34 [facility] [place] TYPE: Emergency COMPLAINT: - DIZZINESS DIAGNOSES: - Essential (primary) hypertension - Nicotine dependence, unspecified, uncomplicated - Other senior living (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 - Other stimulant abuse, uncomplicated - Type 2 diabetes mellitus without complications - Weakness 12/16/2022 20:45 [facility] [place] TYPE: Emergency COMPLAINT: - DIZZINESS DIAGNOSES: - Dizziness and giddiness - Essential (primary) hypertension - Nicotine dependence, unspecified, uncomplicated - Other senior living (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 - Type 2 diabetes mellitus without complications 12/09/2022 18:55 [facility] TYPE: Emergency DIAGNOSES: - Cellulitis of right upper limb - Arm Swelling - Rt arm pain/swelling 11/23/2022 10:[address] [facility] [address] [facility] [place] TYPE: Emergency COMPLAINT: - THINKS HE HAS INFECTION DIAGNOSES: - Dental caries, unspecified - Diseases of lips - Essential (primary) hypertension - Nicotine dependence, unspecified, uncomplicated - Other buttermaker continuous churn (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 - Type 2 diabetes [...] diabetes mellitus without complications 03/22/2022 09:10 [facility] [place] TYPE: Emergency COMPLAINT: - EXTREMITY PAIN/INJURY DIAGNOSES: - Essential (primary) hypertension - Nicotine dependence, unspecified, uncomplicated - Other senior living (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 - Other specified soft tissue disorders Plus 5 More Visits INPATIENT VISIT TRACKING (12 MO.) 12/09/2022 18:55 [facility] Steve [facility] TYPE: Medical Surgical DIAGNOSES: - Cellulitis of right upper limb - Cellulitis of right upper limb [email or web address]
[2023-02-26] MEDS ORDERED: TRIAMCINOLONE A15 GM TOP (19:22)
[2023-02-26 19:39] VITALS: BP 154/98
== END 2023-02-26 19:39 | disposition home or self-care (01) ==
LOC: ED 19:01
DX: F22 Delusional disorders (principal); I10 Essential (primary) hypertension; E11.9 Type 2 diabetes mellitus without complications; F17.200 Nicotine dependence, unspecified, uncomplicated
CPT/HCPCS: 99284

== ENCOUNTER 2023-03-13 10:48 | Emergency (ER) | payer MEDICARE, OTHER ==
[~2023-03-13] VITALS: Ht 162.6 cm; Wt 49.0 kg
--- OUTSIDE RECORDS SUMMARY | ~2023-03-13 | XMS | Continuity of Care Document ---
Demographics + + + | Address | [address] | | | [place] [address] | + + + | Preferred Language | Unknown | + + + | Marital Status | Never | + + + | Yarsani Affiliation | Unknown | + + + | Race | White | + + + | Ethnic Group | Not or | + + + Author + + + | Author | [facility] | + + + | Organization | [facility] | + + + | Address | [address] | | | [place] [address] | + + + | Phone | | + + + Care Team Providers + + + + | Care Wheat Inspector Name | Role | Phone | + [...] + + | 2017-09-28 00:00 | | [facility] | | | Guaifenesin/Dextromethorpha | | | | n | | + + + + | 2017-09-28 00:00 | | [facility] | | | Guaifenesin/Dextromethorpha | | | | n | | + + + + | 2017-09-28 00:00 | | [facility] | | | Guaifenesin/Dextromethorpha | | | | n | | + + + + | 2017-09-28 00:00 | | [facility] | | | Guaifenesin/Dextromethorpha | | | | n | | + + + + | 2017-09-28 00:00 | | [facility] | | | Guaifenesin/Dextromethorpha | | | | n | | + + + + | 2017-09-28 00:00 | | [facility] | | | Guaifenesin/Dextromethorpha | | | | n | | + + + + | 2017-09-28 00:00 | | [facility] | | | Guaifenesin/Dextromethorpha | | | | n | | + + + + | 2017-09-28 00:00 | | [facility] | | | Guaifenesin/Dextromethorpha | | | | n | | + + + + | 2017-09-28 00:00 | | [facility] | | | Guaifenesin/Dextromethorpha | | | | n | | + + + + | 2017-09-28 00:00 | | [facility] | | | Gufenesin/Dextromethorpha | | | | n | | + + + + | 2021-04-03 00:00 | ONDANSETRON HCL | [facility] | + + + + | 2021-04-03 00:00 | ONDANSETRON HCL | [facility] | + + + + | 2021-04-03 00:00 | ONDANSETRON HCL | [facility] | + + + + | 2021-04-03 00:00 | ONDANSETRON HCL | [facility] | + + + + | 2021-04-03 00:00 | ONDANSETRON HCL | [facility] | + + + + | 2021-04-03 00:00 | ONDANSETRON HCL | [facility] | + + + + | 2021-04-03 00:00 | ONDANSETRON HCL | [facility] | + + + + | 2021-04-03 00:00 | ONDANSETRON HCL | [facility] | + + + + | 2021-04-03 00:00 | ONDANSETRON HCL | [facility] | + + + + | 2021-04-03 00:00 | ONDANSETRON HCL | [facility] | + + + + | 2021-02-08 00:00 | TRIAMCINOLONE ACETONIDE | [facility] | + + + + | 2021-02-08 00:00 | TRIAMCINOLONE ACETONIDE | [facility] | + + + + | 2021-02-08 00:00 | TRIAMCINOLONE ACETONIDE | [facility] | + + + + | 2021-02-08 00:00 | TRIAMCINOLONE ACETONIDE | [facility] | + + + + | 2021-02-08 00:00 | TRIAMCINOLONE ACETONIDE | [facility] | + + + + | 2021-02-08 00:00 | TRIAMCINOLONE ACETONIDE | [facility] | + + + + | 2021-02-08 00:00 | TRIAMCINOLONE ACETONIDE | [facility] | + + + + | 2021-02-08 00:00 | TRIAMCINOLONE ACETONIDE | [facility] | + + + + | 2021-02-08 00:00 | TRIAMCINOLONE ACETONIDE | [facility] | + + + + | 2021-02-08 00:00 | TRIAMCINOLONE ACETONIDE | [facility] | + + + + | 2023-02-26 00:00 | TRIAMCINOLONE ACETONIDE | [facility] | + + + + | 2023-01-29 00:00 | UREA | [facility] | + + + + | 2023-01-29 00:00 | UREA | [facility] | + + + + | 2023-01-29 00:00 | UREA | [facility] | + + + + | 2021-08-27 00:00 | OLANZAPINE | [facility] | + + + + | 2021-08-27 00:00 | OLANZAPINE | [facility] | + + + + | 2021-08-27 00:00 | OLANZAPINE | [facility] | + + + + | 2021-08-27 00:00 | OLANZAPINE | [facility] | + + + + | 2021-08-27 00:00 | OLANZAPINE | [facility] | + + + + | 2021-08-27 00:00 | OLANZAPINE | [facility] | + + + + | 2021-08-27 00:00 | OLANZAPINE | [facility] | + + + + | 2021-08-27 00:00 | OLANZAPINE | [facility] | + + + + | 2021-08-27 00:00 | OLANZAPINE | [facility] | + + + + | 2021-08-27 00:00 | OLANZAPINE | [facility] | + + + + | 2021-09-01 00:00 | OLANZAPINE | [facility] | + + + + | 2021-09-01 00:00 | OLANZAPINE | [facility] | + + + + | 2021-09-01 00:00 | OLANZAPINE | [facility] | + + + + | 2021-09-01 00:00 | OLANZAPINE | [facility] | + + + + | 2021-09-01 00:00 | OLANZAPINE | [facility] | + + + + | 2021-09-01 00:00 | OLANZAPINE | [facility] | + + + + | 2021-09-01 00:00 | OLANZAPINE | [facility] | + + + + | 2021-09-01 00:00 | OLANZAPINE | [facility] | + + + + | 2021-09-01 00:00 | OLANZAPINE | [facility] | + + + + | 2021-09-01 00:00 | OLANZAPINE | [facility] | + + + + | 2022-10-13 00:00 | DOXYCYCLINE HYCLATE | [facility] | + + + + | 2022-01-31 00:00 | AMLODIPINE BESYLATE | [facility] | + + + + | 2022-01-31 00:00 | AMLODIPINE BESYLATE | [facility] | + + + + | 2022-01-31 00:00 | AMLODIPINE BESYLATE | [facility] | + + + + | 2022-01-23 00:00 | CEPHALEXIN | [facility] | + + + + | 2022-01-23 00:00 | CEPHALEXIN | [facility] | + + + + | 2022-01-23 00:00 | CEPHALEXIN | [facility] | + + + + | 2022-01-23 00:00 | CEPHALEXIN | [facility] | + + + + | 2022-01-23 00:00 | CEPHALEXIN | [facility] | + + + + | 2022-01-23 00:00 | CEPHALEXIN | [facility] | + + + + | 2022-01-23 00:00 | CEPHALEXIN | [facility] | + + + + | 2022-01-23 00:00 | CEPHALEXIN | [facility] | + + + + | 2022-01-23 00:00 | CEPHALEXIN | [facility] | + + + + | 2022-01-23 00:00 | CEPHALEXIN | [facility] | + + + + | 2022-03-10 00:00 | CEPHALEXIN | [facility] | + + + + | 2022-03-10 00:00 | CEPHALEXIN | [facility] | + + + + | 2017-09-07 00:00 | IBUPROFEN | [facility] | + + + + | 2017-09-07 00:00 | IBUPROFEN | [facility] | + + + + | 2017-09-07 00:00 | IBUPROFEN | [facility] | + + + + | 2017-09-07 00:00 | IBUPROFEN | [facility] | + + + + | 2017-09-07 00:00 | IBUPROFEN | [facility] | + + + + | 2017-09-07 00:00 | IBUPROFEN | [facility] | + + + + | 2017-09-07 00:00 | IBUPROFEN | [facility] | + + + + | 2017-09-07 00:00 | IBUPROFEN | [facility] | + + + + | 2017-09-07 00:00 | IBUPROFEN | [facility] | + + + + | 2017-09-07 00:00 | IBUPROFEN | [facility] | + + + + | 2023-01-01 00:00 | PERMETHRIN | [facility] | + + + + | 2023-01-01 00:00 | PERMETHRIN | [facility] | + + + + | 2023-01-01 00:00 | PERMETHRIN | [facility] | + + + + | 2023-01-01 00:00 | PERMETHRIN | [facility] | + + + + | 2023-01-01 00:00 | PERMETHRIN | [facility] | + + + + | 2019-01-27 00:00 | CEPHALEXIN | [facility] | + + + + | 2019-01-27 00:00 | CEPHALEXIN | [facility] | + + + + | 2019-01-27 00:00 | CEPHALEXIN | [facility] | + + + + | 2019-01-27 00:00 | CEPHALEXIN | [facility] | + + + + | 2019-01-27 00:00 | CEPHALEXIN | [facility] | + + + + | 2019-01-27 00:00 | CEPHALEXIN | [facility] | + + + + | 2019-01-27 00:00 | CEPHALEXIN | [facility] | + + + + | 2019-01-27 00:00 | CEPHALEXIN | [facility] | + + + + | 2019-01-27 00:00 | CEPHALEXIN | [facility] | + + + + | 2019-01-27 00:00 | CEPHALEXIN | [facility] | + + + + | 2017-08-07 00:00 | AZITHROMYCIN | [facility] | + + + + | 2017-08-07 00:00 | AZITHROMYCIN | [facility] | + + + + | 2017-08-07 00:00 | AZITHROMYCIN | [facility] | + + + + | 2017-08-07 00:00 | AZITHROMYCIN | [facility] | + + + + | 2017-08-07 00:00 | AZITHROMYCIN | [facility] | + + + + | 2017-08-07 00:00 | AZITHROMYCIN | [facility] | + + + + | 2017-08-07 00:00 | AZITHROMYCIN | [facility] | + + + + | 2017-08-07 00:00 | AZITHROMYCIN | [facility] | + + + + | 2017-08-07 00:00 | AZITHROMYCIN | [facility] | + + + + | 2017-08-07 00:00 | AZITHROMYCIN | [facility] | + + + + | 2022-03-14 00:00 | BETAMETHASONE DIPROPIONATE | [facility] | | | | | + + + + | 2016-11-17 00:00 | CEPHALEXIN | [facility] | + + + + | 2016-11-17 00:00 | CEPHALEXIN | [facility] | + + + + | 2016-11-17 00:00 | CEPHALEXIN | [facility] | + + + + | 2016-11-17 00:00 | CEPHALEXIN | [facility] | + + + + | 2016-11-17 00:00 | CEPHALEXIN | [facility] | + + + + | 2016-11-17 00:00 | CEPHALEXIN | [facility] | + + + + | 2016-11-17 00:00 | CEPHALEXIN | [facility] | + + + + | 2016-11-17 00:00 | CEPHALEXIN | [facility] | + + + + | 2016-11-17 00:00 | CEPHALEXIN | [facility] | + + + + | 2016-11-17 00:00 | CEPHALEXIN | [facility] | + + + + | 2016-11-20 00:00 | CEPHALEXIN | [facility] | + + + + | 2016-11-20 00:00 | CEPHALEXIN | [facility] | + + + + | 2016-11-20 00:00 | CEPHALEXIN | [facility] | + + + + | 2016-11-20 00:00 | CEPHALEXIN | [facility] | + + + + | 2016-11-20 00:00 | CEPHALEXIN | [facility] | + + + + | 2016-11-20 00:00 | CEPHALEXIN | [facility] | + + + + | 2016-11-20 00:00 | CEPHALEXIN | [facility] | + + + + | 2016-11-20 00:00 | CEPHALEXIN | [facility] | + + + + | 2016-11-20 00:00 | CEPHALEXIN | [facility] | + + + + | 2016-11-20 00:00 | CEPHALEXIN | [facility] | + + + + | 2022-02-03 00:00 | CEPHALEXIN | [facility] | + + + + | 2022-02-05 00:00 | CEPHALEXIN | [facility] | + + + + | 2022-02-06 00:00 | CEPHALEXIN | [facility] | + + + + | 2022-02-06 00:00 | CEPHALEXIN | [facility] | + + + + | 2022-02-07 00:00 | CEPHALEXIN | [facility] | + + + + | 2022-02-10 00:00 | CEPHALEXIN | [facility] | + + + + | 2022-02-16 00:00 | CEPHALEXIN | [facility] | + + + + | 2022-03-14 00:00 | CEPHALEXIN | [facility] | + + + + | 2022-03-19 00:00 | CEPHALEXIN | [facility] | + + + + | 2022-03-22 00:00 | CEPHALEXIN | [facility] | + + + + | 2022-10-13 00:00 | CEPHALEXIN | [facility] | + + + + | 2022-10-31 00:00 | CEPHALEXIN | [facility] | + + + + | 2022-11-21 00:00 | CEPHALEXIN | [facility] | + + + + | 2022-11-22 00:00 | CEPHALEXIN | [facility] | + + + + | 2022-11-23 00:00 | CEPHALEXIN | [facility] | + + + + | 2022-12-16 00:00 | CEPHALEXIN | [facility] | + + + + | 2022-12-21 00:00 | CEPHALEXIN | [facility] | + + + + | 2023-01-01 00:00 | CEPHALEXIN | [facility] | + + + + | 2023-01-10 00:00 | CEPHALEXIN | [facility] | + + + + | 2023-01-27 00:00 | CEPHALEXIN | [facility] | + + + + | 2023-01-29 00:00 | CEPHALEXIN | [facility] | + + + + | 2023-02-14 00:00 | CEPHALEXIN | [facility] | + + + + | 2023-02-15 00:00 | CEPHALEXIN | [facility] | + + + + | 2023-02-16 00:00 | CEPHALEXIN | [facility] | + + + + | 2023-02-16 00:00 | CEPHALEXIN | [facility] | + + + + | 2023-02-26 00:00 | CEPHALEXIN | [facility] | + + + + | 2020-07-15 00:00 | Erythromycin Base | [facility] | + + + + | 2020-07-15 00:00 | Erythromycin Base | [facility] | + + + + | 2020-07-15 00:00 | Erythromycin Base | [facility] | + + + + 2020-07-15 00:00 | Erythromycin Base | [facility] | + + + + 2020-07-15 00:00 | Erythromycin Base | [facility] | + + + + | 2020-07-15 00:00 | Erythromycin Base | [facility] | + + + + | 2020-07-15 00:00 | Erythromycin Base | [facility] | + + + + 2020-07-15 00:00 | Erythromycin Base | [facility] | + + + + | 2020-07-15 00:00 | Erythromycin Base | [facility] | + + + + | 2020-07-15 00:00 | Erythromycin Base | [facility] | + + + + | 2022-10-13 00:00 | ONDANSETRON | [facility] | + + + + | 2022-02-03 00:00 | Oseltamivir Phosphate | [facility] | + + + + | 2022-02-05 00:00 | Oseltamivir Phosphate | [facility] | + + + + | 2022-02-06 00:00 | Oseltamivir Phosphate | [facility] | + + + + | 2022-02-06 00:00 | Oseltamivir Phosphate | [facility] | + + + + | 2022-02-07 00:00 | Oseltamivir Phosphate | [facility] | + + + + | 2022-02-10 00:00 | Oseltamivir Phosphate | [facility] | + + + + | 2022-02-16 00:00 | Oseltamivir Phosphate | [facility] | + + + + | 2022-03-14 00:00 | Oseltamivir Phosphate | [facility] | + + + + | 2022-03-19 00:00 | Oseltamivir Phosphate | [facility] | + + + + | 2022-03-22 00:00 | Oseltamivir Phosphate | [facility] | + + + + | 2022-10-13 00:00 | Oseltamivir Phosphate | [facility] | + + + + | 2022-10-31 00:00 | Oseltamivir Phosphate | [facility] | + + + + | 2022-11-21 00:00 | Oseltamivir Phosphate | [facility] | + + + + | 2022-11-22 00:00 | Oseltamivir Phosphate | [facility] | + + + + | 2022-11-23 00:00 | Oseltamivir Phosphate | [facility] | + + + + | 2022-12-16 00:00 | Oseltamivir Phosphate | [facility] | + + + + | 2022-12-21 00:00 | Oseltamivir Phosphate | [facility] | + + + + | 2023-01-01 00:00 | Oseltamivir Phosphate | [facility] | + + + + | 2023-01-10 00:00 | Oseltamivir Phosphate | [facility] | + + + + | 2023-01-27 00:00 | Oseltamivir Phosphate | [facility] | + + + + | 2023-01-29 00:00 | Oseltamivir Phosphate | [facility] | + + + + | 2023-02-14 00:00 | Oseltamivir Phosphate | [facility] | + + + + | 2023-02-15 00:00 | Oseltamivir Phosphate | [facility] | + + + + | 2023-02-16 00:00 | Oseltamivir Phosphate | [facility] | + + + + | 2023-02-16 00:00 | Oseltamivir Phosphate | [facility] | + + + + | 2023-02-26 00:00 | Oseltamivir Phosphate | [facility] | + + + + | 2022-02-03 00:00 | PIMOZIDE | [facility] | + + + + | 2022-02-05 00:00 | PIMOZIDE | [facility] | + + + + | 2022-02-06 00:00 | PIMOZIDE | [facility] | + + + + | 2022-02-06 00:00 | PIMOZIDE | [facility] | + + + + | 2022-02-07 00:00 | PIMOZIDE | [facility] | + + + + | 2022-02-10 00:00 | PIMOZIDE | [facility] | + + + + | 2022-02-16 00:00 | PIMOZIDE | [facility] | + + + + | 2022-03-14 00:00 | PIMOZIDE | [facility] | + + + + | 2022-03-19 00:00 | PIMOZIDE | [facility] | + + + + | 2022-03-22 00:00 | PIMOZIDE | [facility] | + + + + | 2022-10-13 00:00 | PIMOZIDE | [facility] | + + + + | 2022-10-31 00:00 | PIMOZIDE | [facility] | + + + + | 2022-11-21 00:00 | PIMOZIDE | [facility] | + + + + | 2022-11-22 00:00 | PIMOZIDE | [facility] | + + + + | 2022-11-23 00:00 | PIMOZIDE | [facility] | + + + + | 2022-12-16 00:00 | PIMOZIDE | [facility] | + + + + | 2022-12-21 00:00 | PIMOZIDE | [facility] | + + + + | 2023-01-01 00:00 | PIMOZIDE | [facility] | + + + + | 2023-01-10 00:00 | PIMOZIDE | [facility] | + + + + | 2023-01-27 00:00 | PIMOZIDE | [facility] | + + + + | 2023-01-29 00:00 | PIMOZIDE | [facility] | + + + + | 2023-02-14 00:00 | PIMOZIDE | [facility] | + + + + | 2023-02-15 00:00 | PIMOZIDE | [facility] | + + + + | 2023-02-16 00:00 | PIMOZIDE | [facility] | + + + + | 2023-02-16 00:00 | PIMOZIDE | [facility] | + + + + | 2023-02-26 00:00 | PIMOZIDE | [facility] | + + + + | 2017-06-18 00:00 | predniSONE | [facility] | + + + + | 2017-06-18 00:00 | predniSONE | [facility] | + + + + | 2017-06-18 00:00 | predniSONE | [facility] | + + + + | 2017-06-18 00:00 | predniSONE | [facility] | + + + + | 2017-06-18 00:00 | predniSONE | [facility] | + + + + | 2017-06-18 00:00 | predniSONE | [facility] | + + + + | 2017-06-18 00:00 | predniSONE | [facility] | + + + + | 2017-06-18 00:00 | predniSONE | [facility] | + + + + | 2017-06-18 00:00 | predniSONE | [facility] | + + + + | 2017-06-18 00:00 | predniSONE | [facility] | + + + + | 2020-01-23 00:00 | predniSONE | [facility] | + + + + | 2020-01-23 00:00 | predniSONE | [facility] | + + + + | 2020-01-23 00:00 | predniSONE | [facility] | + + + + | 2020-01-23 00:00 | predniSONE | [facility] | + + + + | 2020-01-23 00:00 | predniSONE | [facility] | + + + + | 2020-01-23 00:00 | predniSONE | [facility] | + + + + | 2020-01-23 00:00 | predniSONE | [facility] | + + + + | 2020-01-23 00:00 | predniSONE | [facility] | + + + + | 2020-01-23 00:00 | predniSONE | [facility] | + + + + | 2020-01-23 00:00 | predniSONE | [facility] | + + + + | 2022-03-22 00:00 | predniSONE | [facility] | + + + + | 2016-05-14 00:00 | HALOPERIDOL | [facility] | + + + + | 2016-05-14 00:00 | HALOPERIDOL | [facility] | + + + + | 2016-05-14 00:00 | HALOPERIDOL | [facility] | + + + + | 2016-05-14 00:00 | HALOPERIDOL | [facility] | + + + + | 2016-05-14 00:00 | HALOPERIDOL | [facility] | + + + + | 2016-05-14 00:00 | HALOPERIDOL | [facility] | + + + + | 2016-05-14 00:00 | HALOPERIDOL | [facility] | + + + + | 2016-05-14 00:00 | HALOPERIDOL | [facility] | + + + + | 2016-05-14 00:00 | HALOPERIDOL | [facility] | + + + + | 2016-05-14 00:00 | HALOPERIDOL | [facility] | + + + + | 2018-02-21 00:00 | HALOPERIDOL | [facility] | + + + + | 2018-02-21 00:00 | HALOPERIDOL | [facility] | + + + + | 2018-02-21 00:00 | HALOPERIDOL | [facility] | + + + + | 2018-02-21 00:00 | HALOPERIDOL | [facility] | + + + + | 2018-02-21 00:00 | HALOPERIDOL | [facility] | + + + + | 2018-02-21 00:00 | HALOPERIDOL | [facility] | + + + + | 2018-02-21 00:00 | HALOPERIDOL | [facility] | + + + + | 2018-02-21 00:00 | HALOPERIDOL | [facility] | + + + + | 2018-02-21 00:00 | HALOPERIDOL | [facility] | + + + + | 2018-02-21 00:00 | HALOPERIDOL | [facility] [facility] + + + + | 2022-02-03 00:00 | HALOPERIDOL | [facility] | + + + + | 2022-02-05 00:00 | HALOPERIDOL | [facility] | + + + + | 2022-02-06 00:00 | HALOPERIDOL | [facility] | + + + + | 2022-02-06 00:00 | HALOPERIDOL | [facility] | + + + + | 2022-02-07 00:00 | HALOPERIDOL | [facility] | + + + + | 2022-02-10 00:00 | HALOPERIDOL | [facility] | + + + + | 2022-02-16 00:00 | HALOPERIDOL | [facility] | + + + + | 2022-03-14 00:00 | HALOPERIDOL | [facility] | + + + + | 2022-03-19 00:00 | HALOPERIDOL | [facility] | + + + + | 2022-03-22 00:00 | HALOPERIDOL | [facility] | + + + + | 2022-10-13 00:00 | HALOPERIDOL | [facility] | + + + + | 2022-10-31 00:00 | HALOPERIDOL | [facility] | + + + + | 2022-11-21 00:00 | HALOPERIDOL | [facility] | + + + + | 2022-11-22 00:00 | HALOPERIDOL | [facility] | + + + + | 2022-11-23 00:00 | HALOPERIDOL | [facility] | + + + + | 2022-12-16 00:00 | HALOPERIDOL | [facility] | + + + + | 2022-12-21 00:00 | HALOPERIDOL | [facility] | + + + + | 2023-01-01 00:00 | HALOPERIDOL | [facility] | + + + + | 2023-01-10 00:00 | HALOPERIDOL | [facility] | + + + + | 2023-01-27 00:00 | HALOPERIDOL | [facility] | + + + + | 2023-01-29 00:00 | HALOPERIDOL | [facility] | + + + + | 2023-02-14 00:00 | HALOPERIDOL | [facility] | + + + + | 2023-02-15 00:00 | HALOPERIDOL | [facility] | + + + + | 2023-02-16 00:00 | HALOPERIDOL | [facility] | + + + + | 2023-02-16 00:00 | HALOPERIDOL | [facility] | + + + + | 2023-02-26 00:00 | HALOPERIDOL | [facility] | + + + + | 2021-07-02 00:00 | LISINOPRIL | [facility] | + + + + | 2021-07-02 00:00 | LISINOPRIL | [facility] | + + + + | 2021-07-02 00:00 | LISINOPRIL | [facility] | + + + + | 2021-07-02 00:00 | LISINOPRIL | [facility] | + + + + | 2021-07-02 00:00 | LISINOPRIL | [facility] | + + + + | 2021-07-02 00:00 | LISINOPRIL | [facility] | + + + + | 2021-07-02 00:00 | LISINOPRIL | [facility] | + + + + | 2021-07-02 00:00 | LISINOPRIL | [facility] | + + + + | 2021-07-02 00:00 | LISINOPRIL | [facility] | + + + + | 2021-07-02 00:00 | LISINOPRIL | [facility] | + + + + | 2023-01-01 00:00 | LISINOPRIL | [facility] | + + + + | 2023-01-01 00:00 | LISINOPRIL | [facility] | + + + + | 2023-01-01 00:00 | LISINOPRIL | [facility] | + + + + | 2023-01-01 00:00 | LISINOPRIL | [facility] | + + + + | 2023-01-01 00:00 | LISINOPRIL | [facility] | + + + + | 2023-01-10 00:00 | LISINOPRIL | [facility] | + + + + | 2023-01-27 00:00 | LISINOPRIL | [facility] | + + + + | 2023-01-29 00:00 | LISINOPRIL | [facility] | + + + + | 2023-02-14 00:00 | LISINOPRIL | [facility] | + + + + | 2023-02-15 00:00 | LISINOPRIL | [facility] | + + + + | 2023-02-16 00:00 | LISINOPRIL | [facility] | + + + + | 2023-02-16 00:00 | LISINOPRIL | [facility] | + + + + | 2023-02-26 00:00 | LISINOPRIL | [facility] | + + + + | 2023-01-01 00:00 | HYDROCHLOROTHIAZIDE | [facility] | + + + + | 2023-01-01 00:00 | HYDROCHLOROTHIAZIDE | [facility] | + + + + | 2023-01-01 00:00 | HYDROCHLOROTHIAZIDE | [facility] | + + + + | 2023-01-01 00:00 | HYDROCHLOROTHIAZIDE | [facility] | + + + + | 2023-01-01 00:00 | HYDROCHLOROTHIAZIDE | [facility] | + + + + | 2023-01-10 00:00 | HYDROCHLOROTHIAZIDE | [facility] | + + + + | 2023-01-27 00:00 | HYDROCHLOROTHIAZIDE | [facility] | + + + + | 2023-01-29 00:00 | HYDROCHLOROTHIAZIDE | [facility] | + + + + | 2023-02-14 00:00 | HYDROCHLOROTHIAZIDE | [facility] | + + + + | 2023-02-15 00:00 | HYDROCHLOROTHIAZIDE | [facility] | + + + + | 2023-02-16 00:00 | HYDROCHLOROTHIAZIDE | [facility] | + + + + | 2023-02-16 00:00 | HYDROCHLOROTHIAZIDE | [facility] | + + + + | 2023-02-26 00:00 | HYDROCHLOROTHIAZIDE | [facility] | + + + + | 2022-11-22 00:00 | AMOXICILLIN/POTASSIUM CLAV | [facility] | | | | | + + + + | 2022-11-22 00:00 | AMOXICILLIN/POTASSIUM CLAV | [facility] | | | | | + + + + | 2017-09-28 00:00 | ALBUTEROL SULFATE | [facility] | + + + + | 2017-09-28 00:00 | ALBUTEROL SULFATE | [facility] | + + + + | 2017-09-28 00:00 | ALBUTEROL SULFATE | [facility] | + + + + | 2017-09-28 00:00 | ALBUTEROL SULFATE | [facility] | + + + + | 2017-09-28 00:00 | ALBUTEROL SULFATE | [facility] | + + + + | 2017-09-28 00:00 | ALBUTEROL SULFATE | [facility] | + + + + | 2017-09-28 00:00 | ALBUTEROL SULFATE | [facility] | + + + + | 2017-09-28 00:00 | ALBUTEROL SULFATE | [facility] | + + + + | 2017-09-28 00:00 | ALBUTEROL SULFATE | [facility] | + + + + | 2017-09-28 00:00 | ALBUTEROL SULFATE | [facility] | + + + + | 2017-09-07 00:00 | CLINDAMYCIN HCL | [facility] | + + + + | 2017-09-07 00:00 | CLINDAMYCIN HCL | [facility] | + + + + | 2017-09-07 00:00 | CLINDAMYCIN HCL | [facility] | + + + + | 2017-09-07 00:00 | CLINDAMYCIN HCL | [facility] | + + + + | 2017-09-07 00:00 | CLINDAMYCIN HCL | [facility] | + + + + | 2017-09-07 00:00 | CLINDAMYCIN HCL | [facility] | + + + + | 2017-09-07 00:00 | CLINDAMYCIN HCL | [facility] | + + + + | 2017-09-07 00:00 | CLINDAMYCIN HCL | [facility] | + + + + | 2017-09-07 00:00 | CLINDAMYCIN HCL | [facility] | + + + + | 2017-09-07 00:00 | CLINDAMYCIN HCL | [facility] | + + + + | 2020-06-16 00:00 | CLINDAMYCIN HCL | [facility] | + + + + | 2020-06-16 00:00 | CLINDAMYCIN HCL | [facility] | + + + + | 2020-06-16 00:00 | CLINDAMYCIN HCL | [facility] | + + + + 2020-06-16 00:00 | CLINDAMYCIN HCL | [facility] | + + + + 2020-06-16 00:00 | CLINDAMYCIN HCL | [facility] | + + + + | 2020-06-16 00:00 | CLINDAMYCIN HCL | [facility] | + + + + | 2020-06-16 00:00 | CLINDAMYCIN HCL | [facility] | + + + + | 2020-06-16 00:00 | CLINDAMYCIN HCL | [facility] | + + + + 2020-06-16 00:00 | CLINDAMYCIN HCL | [facility] | + + + + 2020-06-16 00:00 | CLINDAMYCIN HCL | [facility] | + + + + | 2020-07-12 00:00 | CLINDAMYCIN HCL | [facility] | + + + + | 2020-07-12 00:00 | CLINDAMYCIN HCL | [facility] | + + + + | 2020-07-12 00:00 | CLINDAMYCIN HCL | [facility] | + + + + 2020-07-12 00:00 | CLINDAMYCIN HCL | [facility] | + + + + 2020-07-12 00:00 | CLINDAMYCIN HCL | [facility] | + + + + | 2020-07-12 00:00 | CLINDAMYCIN HCL | [facility] | + + + + | 2020-07-12 00:00 | CLINDAMYCIN HCL | [facility] | + + + + | 2020-07-12 00:00 | CLINDAMYCIN HCL | [facility] | + + + + | 2020-07-12 00:00 | CLINDAMYCIN HCL | [facility] | + + + + | 2020-07-12 00:00 | CLINDAMYCIN HCL | [facility] | + + + + | 2022-11-23 00:00 | CLINDAMYCIN HCL | [facility] | + + + + | 2022-11-23 00:00 | CLINDAMYCIN HCL | [facility] | + + + + | 2017-08-07 00:00 | METHYLPREDNISOLONE | [facility] | + + + + | 2017-08-07 00:00 | METHYLPREDNISOLONE | [facility] | + + + + | 2017-08-07 00:00 | METHYLPREDNISOLONE | [facility] | + + + + | 2017-08-07 00:00 | METHYLPREDNISOLONE | [facility] | + + + + | 2017-08-07 00:00 | METHYLPREDNISOLONE | [facility] | + + + + | 2017-08-07 00:00 | METHYLPREDNISOLONE | [facility] | + + + + | 2017-08-07 00:00 | METHYLPREDNISOLONE | [facility] | + + + + | 2017-08-07 00:00 | METHYLPREDNISOLONE | [facility] | + + + + | 2017-08-07 00:00 | METHYLPREDNISOLONE | [facility] | + + + + | 2017-08-07 00:00 | METHYLPREDNISOLONE | [facility] | + + + + | 2021-08-27 00:00 | Chlorhexidine Gluconate | [facility] | + + + + | 2021-08-27 00:00 | Chlorhexidine Gluconate | [facility] | + + + + | 2021-08-27 00:00 | Chlorhexidine Gluconate | [facility] | + + + + | 2021-08-27 00:00 | Chlorhexidine Gluconate | [facility] | + + + + | 2021-08-27 00:00 | Chlorhexidine Gluconate | [facility] | + + + + | 2021-08-27 00:00 | Chlorhexidine Gluconate | [facility] | + + + + | 2021-08-27 00:00 | Chlorhexidine Gluconate | [facility] | + + + + | 2021-08-27 00:00 | Chlorhexidine Gluconate | [facility] | + + + + | 2021-08-27 00:00 | Chlorhexidine Gluconate | [facility] | + + + + | 2021-08-27 00:00 | Chlorhexidine Gluconate | [facility] | + + + + | 2014-02-25 00:00 | | [facility] | | | SULFAMETHOXAZOLE/TRIMETHOPR | | | | IM DS | | + + + + | 2014-02-25 00:00 | | [facility] | | | SULFAMETHOXAZOLE/TRIMETHOPR | | | | IM DS | | + + + + | 2014-02-25 00:00 | | [facility] | | | SULFAMETHOXAZOLE/TRIMETHOPR | | | | IM DS | | + + + + | 2014-02-25 00:00 | | [facility] | | | SULFAMETHOXAZOLE/TRIMETHOPR | | | | IM DS | | + + + + | 2014-02-25 00:00 | | [facility] | | | SULFAMETHOXAZOLE/TRIMETHOPR | | | | IM DS | | + + + + | 2014-02-25 00:00 | | [facility] | | | SULFAMETHOXAZOLE/TRIMETHOPR | | | | IM DS | | + + + + | 2014-02-25 00:00 | | [facility] | | | SULFAMETHOXAZOLE/TRIMETHOPR | | | | IM DS | | + + + + | 2014-02-25 00:00 | | [facility] | | | SULFAMETHOXAZOLE/TRIMETHOPR | | | | IM DS | | + + + + | 2014-02-25 00:00 | | [facility] | | | SULFAMETHOXAZOLE/TRIMETHOPR | | | | IM DS | | + + + + | 2014-02-25 00:00 | | [facility] | | | SULFAMETHOXAZOLE/TRIMETHOPR | | | | IM DS | | + + + + | 2017-10-08 00:00 | | [facility] | | | SULFAMETHOXAZOLE/TRIMETHOPR | | | | IM DS | | + + + + | 2017-10-08 00:00 | | [facility] | | | SULFAMETHOXAZOLE/TRIMETHOPR | | | | IM DS | | + + + + | 2017-10-08 00:00 | | [facility] | | | SULFAMETHOXAZOLE/TRIMETHOPR | | | | IM DS | | + + + + | 2017-10-08 00:00 | | [facility] | | | SULFAMETHOXAZOLE/TRIMETHOPR | | | | IM DS | | + + + + | 2017-10-08 00:00 | | [facility] | | | SULFAMETHOXAZOLE/TRIMETHOPR | | | | IM DS | | + + + + | 2017-10-08 00:00 | | [facility] | | | SULFAMETHOXAZOLE/TRIMETHOPR | | | | IM DS | | + + + + | 2017-10-08 00:00 | | [facility] | | | SULFAMETHOXAZOLE/TRIMETHOPR | | | | IM DS | | + + + + | 2017-10-08 00:00 | | [facility] | | | SULFAMETHOXAZOLE/TRIMETHOPR | | | | IM DS | | + + + + | 2017-10-08 00:00 | | [facility] | | | SULFAMETHOXAZOLE/TRIMETHOPR | | | | IM DS | | + + + + | 2017-10-08 00:00 | | [facility] | | | SULFAMETHOXAZOLE/TRIMETHOPR | | | | IM DS | | + + + + | 2022-01-31 00:00 | | [facility] | | | SULFAMETHOXAZOLE/TRIMETHOPR | | | | IM DS | | + + + + | 2017-06-18 00:00 | ALBUTEROL SULFATE | [facility] | + + + + | 2017-06-18 00:00 | ALBUTEROL SULFATE | [facility] | + + + + | 2017-06-18 00:00 | ALBUTEROL SULFATE | [facility] | + + + + | 2017-06-18 00:00 | ALBUTEROL SULFATE | [facility] | + + + + | 2017-06-18 00:00 | ALBUTEROL SULFATE | [facility] | + + + + | 2017-06-18 00:00 | ALBUTEROL SULFATE | [facility] | + + + + | 2017-06-18 00:00 | ALBUTEROL SULFATE | [facility] | + + + + | 2017-06-18 00:00 | ALBUTEROL SULFATE | [facility] | + + + + | 2017-06-18 00:00 | ALBUTEROL SULFATE | [facility] | + + + + | 2017-06-18 00:00 | ALBUTEROL SULFATE | [facility] | + + + + | 2017-08-07 00:00 | ALBUTEROL SULFATE | [facility] | + + + + | 2017-08-07 00:00 | ALBUTEROL SULFATE | [facility] | + + + + | 2017-08-07 00:00 | ALBUTEROL SULFATE | [facility] | + + + + | 2017-08-07 00:00 | ALBUTEROL SULFATE | [facility] | + + + + | 2017-08-07 00:00 | ALBUTEROL SULFATE | [facility] | + + + + | 2017-08-07 00:00 | ALBUTEROL SULFATE | [facility] | + + + + | 2017-08-07 00:00 | ALBUTEROL SULFATE | [facility] | + + + + | 2017-08-07 00:00 | ALBUTEROL SULFATE | [facility] | + + + + | 2017-08-07 00:00 | ALBUTEROL SULFATE | [facility] | + + + + | 2017-08-07 00:00 | ALBUTEROL SULFATE | [facility] | + + + + | 2022-02-03 00:00 | ONDANSETRON | [facility] | + + + + | 2022-02-05 00:00 | ONDANSETRON | [facility] | + + + + | 2022-02-06 00:00 | ONDANSETRON | [facility] | + + + + | 2022-02-06 00:00 | ONDANSETRON | [facility] | + + + + | 2022-02-07 00:00 | ONDANSETRON | [facility] | + + + + | 2022-02-10 00:00 | ONDANSETRON | [facility] | + + + + | 2022-02-16 00:00 | ONDANSETRON | [facility] | + + + + | 2022-03-14 00:00 | ONDANSETRON | [facility] | + + + + | 2022-03-19 00:00 | ONDANSETRON | [facility] | + + + + | 2022-03-22 00:00 | ONDANSETRON | [facility] | + + + + | 2022-10-13 00:00 | ONDANSETRON | [facility] | + + + + | 2022-10-31 00:00 | ONDANSETRON | [facility] | + + + + | 2022-11-21 00:00 | ONDANSETRON | [facility] | + + + + | 2022-11-22 00:00 | ONDANSETRON | [facility] | + + + + | 2022-11-23 00:00 | ONDANSETRON | [facility] | + + + + | 2022-12-16 00:00 | ONDANSETRON | [facility] | + + + + | 2022-12-21 00:00 | ONDANSETRON | [facility] | + + + + | 2023-01-01 00:00 | ONDANSETRON | [facility] | + + + + | 2023-01-10 00:00 | ONDANSETRON | [facility] | + + + + | 2023-01-27 00:00 | ONDANSETRON | [facility] | + + + + | 2023-01-29 00:00 | ONDANSETRON | [facility] | + + + + | 2023-02-14 00:00 | ONDANSETRON | [facility] | + + + + | 2023-02-15 00:00 | ONDANSETRON | [facility] | + + + + | 2023-02-16 00:00 | ONDANSETRON | [facility] | + + + + | 2023-02-16 00:00 | ONDANSETRON | [facility] | + + + + | 2023-02-26 00:00 | ONDANSETRON | [facility] | + + + + | 2020-12-15 00:00 | MECLIZINE HCL | [facility] | + + + + | 2020-12-15 00:00 | MECLIZINE HCL | [facility] | + + + + | 2020-12-15 00:00 | MECLIZINE HCL | [facility] | + + + + | 2020-12-15 00:00 | MECLIZINE HCL | [facility] | + + + + | 2020-12-15 00:00 | MECLIZINE HCL | [facility] | + + + + | 2020-12-15 00:00 | MECLIZINE HCL | [facility] | + + + + | 2020-12-15 00:00 | MECLIZINE HCL | [facility] | + + + + | 2020-12-15 00:00 | MECLIZINE HCL | [facility] | + + + + | 2020-12-15 00:00 | MECLIZINE HCL | [facility] | + + + + | 2020-12-15 00:00 | MECLIZINE HCL | [facility] | + + + + Problems + + + + | date | description | facility | + + + + | 2016-05-14 00:00 | Encounter for medication | [facility] | | | refill | | + + + + | 2016-05-14 00:00 | Encounter for medication | [facility] | | | refill | | + + + + | 2016-05-14 00:00 | Encounter for medication | [facility] | | | refill | | + + + + | 2016-05-14 00:00 | Encounter for medication | [facility] | | | refill | | + + + + | 2016-05-14 00:00 | Encounter for medication | [facility] | | | refill | | + + + + | 2016-05-14 00:00 | Encounter for medication | [facility] | | | refill | | + + + + | 2016-05-14 00:00 | Encounter for medication | [facility] | | | refill | | + + + + | 2016-05-14 00:00 | Encounter for medication | [facility] | | | refill | | + + + + | 2016-05-14 00:00 | Encounter for medication | [facility] | | | refill | | + + + + | 2016-05-14 00:00 | Encounter for medication | [facility] | | | refill | | + + + + | 2016-08-19 00:00 | Encounter for medical | [facility] | | | screening examination | | + + + + | 2016-08-19 00:00 | Encounter for medical | [facility] | | | screening examination | | + + + + | 2016-08-19 00:00 | Encounter for medical [facility] | | | screening examination | | + + + + | 2016-08-19 00:00 | Encounter for medical | [facility] | | | screening examination | | + + + + | 2016-08-19 00:00 | Encounter for medical [facility] | | | screening examination | | + + + + | 2016-08-19 00:00 | Encounter for medical | [facility] | | | screening examination | | + + + + | 2016-08-19 00:00 | Encounter for medical [facility] | | | screening examination | | + + + + | 2016-08-19 00:00 | Encounter for medical | [facility] | | | screening examination | | + + + + | 2016-08-19 00:00 | Encounter for medical | [facility] | | | screening examination | | + + + + | 2016-08-19 00:00 | Encounter for medical | [facility] | | | screening examination | | + + + + | 2016-10-10 00:00 | Constipation | [facility] | + + + + | 2016-10-10 00:00 | Constipation | [facility] | + + + + | 2016-10-10 00:00 | Constipation | [facility] | + + + + | 2016-10-10 00:00 | Constipation | [facility] | + + + + | 2016-10-10 00:00 | Constipation | [facility] | + + + + | 2016-10-10 00:00 | Constipation | [facility] | + + + + | 2016-10-10 00:00 | Constipation | [facility] | + + + + | 2016-10-10 00:00 | Constipation | [facility] | + + + + | 2016-10-10 00:00 | Constipation | [facility] | + + + + | 2016-10-10 00:00 | Constipation | [facility] | + + + + | 2016-10-10 00:00 | Nonspecific abdominal pain | [facility] | | | | | + + + + | 2016-10-10 00:00 | Nonspecific abdominal pain | [facility] | | | | | + + + + | 2016-10-10 00:00 | Nonspecific abdominal pain | [facility] | | | | | + + + + | 2016-10-10 00:00 | Nonspecific abdominal pain | [facility] | | | | | + + + + | 2016-10-10 00:00 | Nonspecific abdominal pain | [facility] | | | | | + + + + | 2016-10-10 00:00 | Nonspecific abdominal pain | [facility] | | | | | + + + + | 2016-10-10 00:00 | Nonspecific abdominal pain | [facility] | | | | | + + + + | 2016-10-10 00:00 | Nonspecific abdominal pain | [facility] | | | | | + + + + | 2016-10-10 00:00 | Nonspecific abdominal pain | [facility] | | | | | + + + + | 2016-10-10 00:00 | Nonspecific abdominal pain | [facility] System | | | | | + + + + | 2016-10-31 00:00 | Methamphetamine abuse | [facility] | + + + + | 2016-10-31 00:00 | Methamphetamine abuse | [facility] | + + + + | 2016-10-31 00:00 | Methamphetamine abuse | [facility] | + + + + | 2016-10-31 00:00 | Methamphetamine abuse | [facility] | + + + + | 2016-10-31 00:00 | Methamphetamine abuse | [facility] | + + + + | 2016-10-31 00:00 | Methamphetamine abuse | [facility] | + + + + | 2016-10-31 00:00 | Methamphetamine abuse | [facility] | + + + + | 2016-10-31 00:00 | Methamphetamine abuse | [facility] | + + + + | 2016-10-31 00:00 | Methamphetamine abuse | [facility] | + + + + | 2016-10-31 00:00 | Methamphetamine abuse | [facility] | + + + + | 2016-10-31 00:00 | Chronic abdominal pain | [facility] | + + + + | 2016-10-31 00:00 | Chronic abdominal pain | [facility] | + + + + | 2016-10-31 00:00 | Chronic abdominal pain | [facility] | + + + + | 2016-10-31 00:00 | Chronic abdominal pain | [facility] | + + + + | 2016-10-31 00:00 | Chronic abdominal pain | [facility] | + + + + | 2016-10-31 00:00 | Chronic abdominal pain | [facility] | + + + + | 2016-10-31 00:00 | Chronic abdominal pain | [facility] | + + + + | 2016-10-31 00:00 | Chronic abdominal pain | [facility] | + + + + | 2016-10-31 00:00 | Chronic abdominal pain | [facility] | + + + + | 2016-10-31 00:00 | Chronic abdominal pain | [facility] | + + + + | 2016-10-31 00:00 | Weight loss | [facility] | + + + + | 2016-10-31 00:00 | Weight loss | [facility] | + + + + | 2016-10-31 00:00 | Weight loss | [facility] | + + + + | 2016-10-31 00:00 | Weight loss | [facility] | + + + + | 2016-10-31 00:00 | Weight loss | [facility] | + + + + | 2016-10-31 00:00 | Weight loss | [facility] | + + + + | 2016-10-31 00:00 | Weight loss | [facility] | + + + + | 2016-10-31 00:00 | Weight loss | [facility] | + + + + | 2016-10-31 00:00 | Weight loss | [facility] | + + + + | 2016-10-31 00:00 | Weight loss | [facility] | + + + + | 2016-11-17 00:00 | Cellulitis | [facility] | + + + + | 2016-11-17 00:00 | Cellulitis | [facility] | + + + + | 2016-11-17 00:00 | Cellulitis | [facility] | + + + + | 2016-11-17 00:00 | Cellulitis | [facility] | + + + + | 2016-11-17 00:00 | Cellulitis | [facility] | + + + + | 2016-11-17 00:00 | Cellulitis | [facility] | + + + + | 2016-11-17 00:00 | Cellulitis | [facility] | + + + + | 2016-11-17 00:00 | Cellulitis | [facility] | + + + + | 2016-11-17 00:00 | Cellulitis | [facility] | + + + + | 2016-11-17 00:00 | Cellulitis | [facility] | + + + + | 2017-01-04 00:00 | 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 | | + + + + | 2017-01-04 00:00 | 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 | | + + + + | 2017-01-04 00:00 | 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 | | + + + + | 2017-01-04 00:00 | 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 | | + + + + | 2017-01-04 00:00 | 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 | | + + + + | 2017-01-04 00:00 | 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 | | + + + + | 2017-01-04 00:00 | 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 | | + + + + | 2017-01-04 00:00 | 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 | | + + + + | 2017-01-04 00:00 | 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 | | + + + + | 2017-01-04 00:00 | 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 | | + + + + | 2017-06-09 00:00 | Patient left without being | [facility] | | | seen | | + + + + | 2017-06-09 00:00 | Patient left without being | [facility] | | | seen | | + + + + | 2017-06-09 00:00 | Patient left without being | [facility] | | | seen | | + + + + | 2017-06-09 00:00 | Patient left without being | [facility] | | | seen | | + + + + | 2017-06-09 00:00 | Patient left without being | [facility] | | | seen | | + + + + | 2017-06-09 00:00 | Patient left without being | [facility] | | | seen | | + + + + | 2017-06-09 00:00 | Patient left without being | [facility] | | | seen | | + + + + | 2017-06-09 00:00 | Patient left without being | [facility] | | | seen | | + + + + | 2017-06-09 00:00 | Patient left without being | [facility] | | | seen | | + + + + | 2017-06-09 00:00 | Patient left without being | [facility] | | | seen | | + + + + | 2017-06-18 00:00 | Obstructive chronic | [facility] | | | bronchitis with | | | | exacerbation | | + + + + | 2017-06-18 00:00 | Obstructive chronic | [facility] | | | bronchitis with | | | | exacerbation | | + + + + | 2017-06-18 00:00 | Obstructive chronic | [facility] | | | bronchitis with | | | | exacerbation | | + + + + | 2017-06-18 00:00 | Obstructive chronic | [facility] | | | bronchitis with | | | | exacerbation | | + + + + | 2017-06-18 00:00 | Obstructive chronic | [facility] | | | bronchitis with | | | | exacerbation | | + + + + | 2017-06-18 00:00 | Obstructive chronic | [facility] | | | bronchitis with | | | | exacerbation | | + + + + | 2017-06-18 00:00 | Obstructive chronic | [facility] | | | bronchitis with | | | | exacerbation | | + + + + | 2017-06-18 00:00 | Obstructive chronic | [facility] | | | bronchitis with | | | | exacerbation | | + + + + | 2017-06-18 00:00 | Obstructive chronic | [facility] | | | bronchitis with | | | | exacerbation | | + + + + | 2017-06-18 00:00 | Obstructive chronic | [facility] | | | bronchitis with | | | | exacerbation | | + + + + | 2017-06-18 00:00 | Dyspnea on exertion | [facility] | + + + + | 2017-06-18 00:00 | Dyspnea on exertion | [facility] | + + + + | 2017-06-18 00:00 | Dyspnea on exertion | [facility] | + + + + | 2017-06-18 00:00 | Dyspnea on exertion | [facility] | + + + + | 2017-06-18 00:00 | Dyspnea on exertion | [facility] | + + + + | 2017-06-18 00:00 | Dyspnea on exertion | [facility] | + + + + | 2017-06-18 00:00 | Dyspnea on exertion | [facility] | + + + + | 2017-06-18 00:00 | Dyspnea on exertion | [facility] | + + + + | 2017-06-18 00:00 | Dyspnea on exertion | [facility] | + + + + | 2017-06-18 00:00 | Dyspnea on exertion | [facility] | + + + + | 2017-08-07 00:00 | Bronchitis | [facility] | + + + + | 2017-08-07 00:00 | Bronchitis | [facility] | + + + + | 2017-08-07 00:00 | Bronchitis | [facility] | + + + + | 2017-08-07 00:00 | Bronchitis | [facility] | + + + + | 2017-08-07 00:00 | Bronchitis | [facility] | + + + + | 2017-08-07 00:00 | Bronchitis | [facility] | + + + + | 2017-08-07 00:00 | Bronchitis | [facility] | + + + + | 2017-08-07 00:00 | Bronchitis | [facility] | + + + + | 2017-08-07 00:00 | Bronchitis | [facility] | + + + + | 2017-08-07 00:00 | Bronchitis | [facility] | + + + + | 2017-09-07 00:00 | Paronychia of finger of | [facility] | | | right hand | | + + + + | 2017-09-07 00:00 | Paronychia of finger of | [facility] | | | right hand | | + + + + | 2017-09-07 00:00 | Paronychia of finger of [facility] | | | right hand | | + + + + | 2017-09-07 00:00 | Paronychia of finger of [facility] | | | right hand | | + + + + | 2017-09-07 00:00 | Paronychia of finger of [facility] | | | right hand | | + + + + | 2017-09-07 00:00 | Paronychia of finger of [facility] | | | right hand | | + + + + | 2017-09-07 00:00 | Paronychia of finger of | [facility] | | | right hand | | + + + + | 2017-09-07 00:00 | Paronychia of finger of [facility] | | | right hand | | + + + + | 2017-09-07 00:00 | Paronychia of finger of [facility] | | | right hand | | + + + + | 2017-09-07 00:00 | Paronychia of finger of [facility] | | | right hand | | + + + + | 2017-09-28 00:00 | Upper respiratory tract | [facility] | | | infection | | + + + + | 2017-09-28 00:00 | Upper respiratory tract | [facility] | | | infection | | + + + + | 2017-09-28 00:00 | Upper respiratory tract | [facility] | | | infection | | + + + + | 2017-09-28 00:00 | Upper respiratory tract | [facility] | | | infection | | + + + + | 2017-09-28 00:00 | Upper respiratory tract | [facility] | | | infection | | + + + + | 2017-09-28 00:00 | Upper respiratory tract | [facility] | | | infection | | + + + + | 2017-09-28 00:00 | Upper respiratory tract | [facility] | | | infection | | + + + + | 2017-09-28 00:00 | Upper respiratory tract | [facility] | | | infection | | + + + + | 2017-09-28 00:00 | Upper respiratory tract | [facility] | | | infection | | + + + + | 2017-09-28 00:00 | Upper respiratory tract | [facility] | | | infection | | + + + + | 2019-01-27 00:00 | Cellulitis of lower | [facility] | | | extremity | | + + + + | 2019-01-27 00:00 | Cellulitis of lower | [facility] | | | extremity | | + + + + | 2019-01-27 00:00 | Cellulitis of lower | [facility] | | | extremity | | + + + + | 2019-01-27 00:00 | Cellulitis of lower | [facility] | | | extremity | | + + + + | 2019-01-27 00:00 | Cellulitis of lower | [facility] | | | extremity | | + + + + | 2019-01-27 00:00 | [facility]itis of lower | [facility] | | | extremity | | + + + + | 2019-01-27 00:00 | Cellulitis of lower | [facility] | | | extremity | | + + + + | 2019-01-27 00:00 | Cellulitis of lower | [facility] | | | extremity | | + + + + | 2019-01-27 00:00 | Cellulitis of lower | [facility] | | | extremity | | + + + + | 2019-01-27 00:00 | Cellulitis of lower | [facility] | | | extremity | | + + + + | 2020-01-23 00:00 | Gout | [facility] | + + + + | 2020-01-23 00:00 | Gout | [facility] | + + + + | 2020-01-23 00:00 | Gout | [facility] | + + + + | 2020-01-23 00:00 | Gout | [facility] | + + + + | 2020-01-23 00:00 | Gout | [facility] | + + + + | 2020-01-23 00:00 | Gout | [facility] | + + + + | 2020-01-23 00:00 | Gout | [facility] | + + + + | 2020-01-23 00:00 | Gout | [facility] | + + + + | 2020-01-23 00:00 | Gout | [facility] | + + + + | 2020-01-23 00:00 | Gout | [facility] | + + + + | 2020-05-09 00:00 | Rectal fissure | [facility] | + + + + | 2020-05-09 00:00 | Rectal fissure | [facility] | + + + + 2020-05-09 00:00 | Rectal fissure | [facility] | + + + + | 2020-05-09 00:00 | Rectal fissure | [facility] | + + + + | 2020-05-09 00:00 | Rectal fissure | [facility] | + + + + | 2020-05-09 00:00 | Rectal fissure | [facility] | + + + + | 2020-05-09 00:00 | Rectal fissure | [facility] | + + + + | 2020-05-09 00:00 | Rectal fissure | [facility] | + + + + | 2020-05-09 00:00 | Rectal fissure | [facility] | + + + + | 2020-05-09 00:00 | Rectal fissure | [facility] | + + + + | 2020-07-15 00:00 | Cannabis abuse | [facility] | + + + + | 2020-07-15 00:00 | Cannabis abuse | [facility] | + + + + 2020-07-15 00:00 | Cannabis abuse | [facility] | + + + + 2020-07-15 00:00 | Cannabis abuse | [facility] | + + + + | 2020-07-15 00:00 | Cannabis abuse | [facility] | + + + + | 2020-07-15 00:00 | Cannabis abuse | [facility] | + + + + | 2020-07-15 00:00 | Cannabis abuse | [facility] | + + + + 2020-07-15 00:00 | Cannabis abuse | [facility] | + + + + 2020-07-15 00:00 | Cannabis abuse | [facility] | + + + + | 2020-07-15 00:00 | Cannabis abuse | [facility] | + + + + | 2020-07-15 00:00 | Acute kidney injury | [facility] | + + + + | 2020-07-15 00:00 | Acute kidney injury | [facility] | + + + + 2020-07-15 00:00 | Acute kidney injury | [facility] | + + + + 2020-07-15 00:00 | Acute kidney injury | [facility] | + + + + | 2020-07-15 00:00 | Acute kidney injury | [facility] | + + + + | 2020-07-15 00:00 | Acute kidney injury | [facility] | + + + + | 2020-07-15 00:00 | Acute kidney injury | [facility] | + + + + 2020-07-15 00:00 | Acute kidney injury | [facility] | + + + + 2020-07-15 00:00 | Acute kidney injury | [facility] | + + + + | 2020-07-15 00:00 | Acute kidney injury | [facility] | + + + + | 2020-07-15 00:00 | Elevated transaminase | [facility] | | | measurement | | + + + + | 2020-07-15 00:00 | Elevated transaminase | [facility] | | | measurement | | + + + + | 2020-07-15 00:00 | Elevated transaminase | [facility] | | | measurement | | + + + + | 2020-07-15 00:00 | Elevated transaminase | [facility] | | | measurement | | + + + + | 2020-07-15 00:00 | Elevated transaminase | [facility] | | | measurement | | + + + + | 2020-07-15 00:00 | Elevated transaminase | [facility] | | | measurement | | + + + + | 2020-07-15 00:00 | Elevated transaminase | [facility] | | | measurement | | + + + + | 2020-07-15 00:00 | Elevated transaminase | [facility] | | | measurement | | + + + + | 2020-07-15 00:00 | Elevated transaminase | [facility] | | | measurement | | + + + + | 2020-07-15 00:00 | Elevated transaminase | [facility] | | | measurement | | + + + + | 2020-07-15 00:00 | Abrasion of left cornea | [facility] | + + + + | 2020-07-15 00:00 | Abrasion of left cornea | [facility] | + + + + | 2020-07-15 00:00 | Abrasion of left cornea | [facility] | + + + + | 2020-07-15 00:00 | Abrasion of left cornea | [facility] | + + + + | 2020-07-15 00:00 | Abrasion of left cornea | [facility] | + + + + | 2020-07-15 00:00 | Abrasion of left cornea | [facility] | + + + + 2020-07-15 00:00 | Abrasion of left cornea | [facility] | + + + + | 2020-07-15 00:00 | Abrasion of left cornea | [facility] | + + + + | 2020-07-15 00:00 | Abrasion of left cornea | [facility] | + + + + | 2020-07-15 00:00 | Abrasion of left cornea | [facility] | + + + + | 2020-09-17 00:00 | 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[facility] | + + + + | 2020-09-17 00:00 | 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[facility] | + + + + | 2020-09-17 00:00 | 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[facility] | + + + + | 2020-09-17 00:00 | 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[facility] | + + + + | 2020-09-17 00:00 | 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[facility] | + + + + | 2020-09-17 00:00 | 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[facility] | + + + + | 2020-09-17 00:00 | 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[facility] | + + + + | 2020-09-17 00:00 | 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[facility] | + + + + | 2020-09-17 00:00 | 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[facility] | + + + + | 2020-09-17 00:00 | 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[facility] | + + + + | 2020-11-13 00:00 | Drug use | [facility] | + + + + | 2020-11-13 00:00 | Drug use | [facility] | + + + + | 2020-11-13 00:00 | Drug use | [facility] | + + + + | 2020-11-13 00:00 | Drug use | [facility] | + + + + | 2020-11-13 00:00 | Drug use | [facility] | + + + + | 2020-11-13 00:00 | Drug use | [facility] | + + + + | 2020-11-13 00:00 | Drug use | [facility] | + + + + | 2020-11-13 00:00 | Drug use | [facility] | + + + + | 2020-11-13 00:00 | Drug use | [facility] | + + + + | 2020-11-13 00:00 | Drug use | [facility] | + + + + | 2020-12-15 00:00 | Vertigo | [facility] | + + + + | 2020-12-15 00:00 | Vertigo | [facility] | + + + + | 2020-12-15 00:00 | Vertigo | [facility] | + + + + | 2020-12-15 00:00 | Vertigo | [facility] | + + + + | 2020-12-15 00:00 | Vertigo | [facility] | + + + + | 2020-12-15 00:00 | Vertigo | [facility] | + + + + | 2020-12-15 00:00 | Vertigo | [facility] | + + + + | 2020-12-15 00:00 | Vertigo | [facility] | + + + + | 2020-12-15 00:00 | Vertigo | [facility] | + + + + | 2020-12-15 00:00 | Vertigo | [facility] | + + + + | 2021-02-08 00:00 | Eczema of both hands | [facility] | + + + + | 2021-02-08 00:00 | Eczema of both hands | [facility] | + + + + | 2021-02-08 00:00 | Eczema of both hands | [facility] | + + + + | 2021-02-08 00:00 | Eczema of both hands | [facility] | + + + + | 2021-02-08 00:00 | Eczema of both hands | [facility] | + + + + | 2021-02-08 00:00 | Eczema of both hands | [facility] | + + + + | 2021-02-08 00:00 | Eczema of both hands | [facility] | + + + + | 2021-02-08 00:00 | Eczema of both hands | [facility] | + + + + | 2021-02-08 00:00 | Eczema of both hands | [facility] | + + + + | 2021-02-08 00:00 | Eczema of both hands | [facility] | + + + + | 2021-04-03 00:00 | Dehydration | [facility] | + + + + | 2021-04-03 00:00 | Dehydration | [facility] | + + + + | 2021-04-03 00:00 | Dehydration | [facility] | + + + + | 2021-04-03 00:00 | Dehydration | [facility] | + + + + | 2021-04-03 00:00 | Dehydration | [facility] | + + + + | 2021-04-03 00:00 | Dehydration | [facility] | + + + + | 2021-04-03 00:00 | Dehydration | [facility] | + + + + | 2021-04-03 00:00 | Dehydration | [facility] | + + + + | 2021-04-03 00:00 | Dehydration | [facility] | + + + + | 2021-04-03 00:00 | Dehydration | [facility] | + + + + | 2021-04-03 00:00 | Enteritis | [facility] | + + + + | 2021-04-03 00:00 | Enteritis | [facility] | + + + + | 2021-04-03 00:00 | Enteritis | [facility] | + + + + | 2021-04-03 00:00 | Enteritis | [facility] | + + + + | 2021-04-03 00:00 | Enteritis | [facility] | + + + + | 2021-04-03 00:00 | Enteritis | [facility] | + + + + | 2021-04-03 00:00 | Enteritis | [facility] | + + + + | 2021-04-03 00:00 | Enteritis | [facility] [facility] | + + + + | 2021-04-03 00:00 | Enteritis | [facility] | + + + + | 2021-04-03 00:00 | Enteritis | [facility] | + + + + | 2021 00:00 | Parasite not detected | [facility] | + + + + | 2021 00:00 | Parasite not detected | [facility] | + + + + | 2021 00:00 | Parasite not detected | [facility] | + + + + | 2021 00:00 | Parasite not detected | [facility] | + + + + | 2021 00:00 | Parasite not detected | [facility] | + + + + | 2021 00:00 | Parasite not detected | [facility] | + + + + | 2021 00:00 | Parasite not detected | [facility] | + + + + | 2021 00:00 | Parasite not detected | [facility] | + + + + | 2021 00:00 | Parasite not detected | [facility] | + + + + | 2021 00:00 | Parasite not detected | [facility] | + + + + | 2021 00:00 | Pain of hand | [facility] | + + + + | 2021 00:00 | Pain of hand | [facility] | + + + + | 2021 00:00 | Pain of hand | [facility] | + + + + | 2021 00:00 | Pain of hand | [facility] | + + + + | 2021 00:00 | Pain of hand | [facility] | + + + + | 2021 00:00 | Pain of hand | [facility] | + + + + | 2021 00:00 | Pain of hand | [facility] | + + + + | 2021 00:00 | Pain of hand | [facility] | + + + + | 2021 00:00 | Pain of hand | [facility] | + + + + | 2021 00:00 | Pain of hand | [facility] | + + + + | 2021-05-18 00:00 | Viral infection | [facility] | + + + + | 2021-05-18 00:00 | Viral infection | [facility] | + + + + | 2021-05-18 00:00 | Viral infection | [facility] | + + + + | 2021-05-18 00:00 | Viral infection | [facility] | + + + + | 2021-05-18 00:00 | Viral infection | [facility] | + + + + | 2021-05-18 00:00 | Viral infection | [facility] | + + + + | 2021-05-18 00:00 | Viral infection | [facility] | + + + + | 2021-05-18 00:00 | Viral infection | [facility] | + + + + | 2021-05-18 00:00 | Viral infection | [facility] | + + + + | 2021-05-18 00:00 | Viral infection | [facility] | + + + + | 2021-07-02 00:00 | Acute bronchitis | [facility] | + + + + | 2021-07-02 00:00 | Acute bronchitis | [facility] | + + + + | 2021-07-02 00:00 | Acute bronchitis | [facility] | + + + + | 2021-07-02 00:00 | Acute bronchitis | [facility] | + + + + | 2021-07-02 00:00 | Acute bronchitis | [facility] | + + + + | 2021-07-02 00:00 | Acute bronchitis | [facility] | + + + + | 2021-07-02 00:00 | Acute bronchitis | [facility] | + + + + | 2021-07-02 00:00 | Acute bronchitis | [facility] | + + + + | 2021-07-02 00:00 | Acute bronchitis | [facility] | + + + + | 2021-07-02 00:00 | Acute bronchitis | [facility] | + + + + | 2021-07-13 00:00 | Dizziness | [facility] | + + + + | 2021-07-13 00:00 | Dizziness | [facility] | + + + + | 2021-07-13 00:00 | Dizziness | [facility] | + + + + | 2021-07-13 00:00 | Dizziness | [facility] | + + + + | 2021-07-13 00:00 | Dizziness | [facility] | + + + + | 2021-07-13 00:00 | Dizziness | [facility] | + + + + | 2021-07-13 00:00 | Dizziness | [facility] | + + + + | 2021-07-13 00:00 | Dizziness | [facility] | + + + + | 2021-07-13 00:00 | Dizziness | [facility] | + + + + | 2021-07-13 00:00 | Dizziness | [facility] | + + + + | 2021-08-27 00:00 | Schizoaffective disorder | [facility] | + + + + | 2021-08-27 00:00 | Schizoaffective disorder | [facility] | + + + + | 2021-08-27 00:00 | Schizoaffective disorder | [facility] | + + + + | 2021-08-27 00:00 | Schizoaffective disorder | [facility] | + + + + | 2021-08-27 00:00 | Schizoaffective disorder | [facility] | + + + + | 2021-08-27 00:00 | Schizoaffective disorder | [facility] | + + + + | 2021-08-27 00:00 | Schizoaffective disorder | [facility] | + + + + | 2021-08-27 00:00 | Schizoaffective disorder | [facility] | + + + + | 2021-08-27 00:00 | Schizoaffective disorder | [facility] | + + + + | 2021-08-27 00:00 | Schizoaffective disorder | [facility] | + + + + | 2021-08-27 00:00 | Stomatitis | [facility] | + + + + | 2021-08-27 00:00 | Stomatitis | [facility] | + + + + | 2021-08-27 00:00 | Stomatitis | [facility] | + + + + | 2021-08-27 00:00 | Stomatitis | [facility] | + + + + | 2021-08-27 00:00 | Stomatitis | [facility] | + + + + | 2021-08-27 00:00 | Stomatitis | [facility] | + + + + | 2021-08-27 00:00 | Stomatitis | [facility] | + + + + | 2021-08-27 00:00 | Stomatitis | [facility] | + + + + | 2021-08-27 00:00 | Stomatitis | [facility] | + + + + | 2021-08-27 00:00 | Stomatitis | [facility] | + + + + | 2021-09-22 00:00 | Vomiting | [facility] | + + + + | 2021-09-22 00:00 | Vomiting | [facility] | + + + + | 2021-09-22 00:00 | Vomiting | [facility] | + + + + | 2021-09-22 00:00 | Vomiting | [facility] | + + + + | 2021-09-22 00:00 | Vomiting | [facility] | + + + + | 2021-09-22 00:00 | Vomiting | [facility] | + + + + | 2021-09-22 00:00 | Vomiting | [facility] | + + + + | 2021-09-22 00:00 | Vomiting | [facility] | + + + + | 2021-09-22 00:00 | Vomiting | [facility] | + + + + | 2021-09-22 00:00 | Vomiting | [facility] | + + + + | 2021-11-12 00:00 | Pneumonia | [facility] | + + + + | 2021-11-12 00:00 | Pneumonia | [facility] | + + + + | 2021-11-12 00:00 | Pneumonia | [facility] | + + + + | 2021-11-12 00:00 | Pneumonia | [facility] | + + + + | 2021-11-12 00:00 | Pneumonia | [facility] | + + + + | 2021-11-12 00:00 | Pneumonia | [facility] | + + + + | 2021-11-12 00:00 | Pneumonia | [facility] | + + + + | 2021-11-12 00:00 | Pneumonia | [facility] | + + + + | 2021-11-12 00:00 | Pneumonia | [facility] | + + + + | 2021-11-12 00:00 | Pneumonia | [facility] | + + + + | 2022-01-03 00:00 | Dental abscess | [facility] | + + + + | 2022-01-03 00:00 | Dental abscess | [facility] | + + + + | 2022-01-03 00:00 | Dental abscess | [facility] | + + + + | 2022-01-03 00:00 | Dental abscess | [facility] | + + + + | 2022-01-03 00:00 | Dental abscess | [facility] | + + + + | 2022-01-03 00:00 | Dental abscess | [facility] | + + + + | 2022-01-03 00:00 | Dental abscess | [facility] | + + + + | 2022-01-03 00:00 | Dental abscess | [facility] | + + + + | 2022-01-03 00:00 | Dental abscess | [facility] | + + + + | 2022-01-03 00:00 | Dental abscess | [facility] | + + + + | 2022-01-03 05:43 | ANEMIA, UNSPECIFIED | [facility] | + + + + | 2022-01-03 05:43 | NICOTINE DEPENDENCE, | [facility] | | | UNSPECIFIED, UNCOMPLICATED | | + + + + | 2022-01-03 05:43 | Essential (primary) | [facility] | | | hypertension | | + + + + | 2022-01-03 05:43 | PERIAPICAL ABSCESS WITHOUT | [facility] | | | SINUS | | + + + + | 2022-01-14 00:00 | Parasitic infestation | [facility] | + + + + | 2022-01-14 00:00 | Parasitic infestation | [facility] | + + + + | 2022-01-14 00:00 | Parasitic infestation | [facility] | + + + + | 2022-01-14 00:00 | Parasitic infestation | [facility] | + + + + | 2022-01-14 00:00 | Parasitic infestation | [facility] | + + + + | 2022-01-14 00:00 | Parasitic infestation | [facility] | + + + + | 2022-01-14 00:00 | Parasitic infestation | [facility] | + + + + | 2022-01-14 00:00 | Parasitic infestation | [facility] | + + + + | 2022-01-14 00:00 | Parasitic infestation | [facility] | + + + + | 2022-01-14 00:00 | Parasitic infestation | [facility] | + + + + | 2022-01-23 00:00 | Cellulitis of finger of | [facility] | | | left hand | | + + + + | 2022-01-23 00:00 | Cellulitis of finger of [facility] | | | left hand | | + + + + | 2022-01-23 00:00 | Cellulitis of finger of [facility] | | | left hand | | + + + + | 2022-01-23 00:00 | Cellulitis of finger of [facility] | | | left hand | | + + + + | 2022-01-23 00:00 | Cellulitis of finger of | [facility] | | | left hand | | + + + + | 2022-01-23 00:00 | Cellulitis of finger of | [facility] | | | left hand | | + + + + | 2022-01-23 00:00 | Cellulitis of finger of [facility] | | | left hand | | + + + + | 2022-01-23 00:00 | Cellulitis of finger of [facility] | | | left hand | | + + + + | 2022-01-23 00:00 | Cellulitis of finger of [facility] | | | left hand | | + + + + | 2022-01-23 00:00 | Cellulitis of finger of | [facility] | | | left hand | | + + + + | 2022-01-23 02:03 | NICOTINE DEPENDENCE, | [facility] | | | UNSPECIFIED, UNCOMPLICATED | | + + + + | 2022-01-23 02:03 | Essential (primary) | [facility] | | | hypertension | | + + + + | 2022-01-23 02:03 | CELLULITIS OF LEFT UPPER | [facility] | | | LIMB | | + + + + | 2022-01-23 02:03 | PAIN IN LEFT HAND | [facility] | + + + + | 2022-01-25 00:00 | Swelling | [facility] | + + + + | 2022-01-25 00:00 | Swelling | [facility] | + + + + | 2022-01-25 00:00 | Swelling | [facility] | + + + + | 2022-01-25 00:00 | Swelling | [facility] | + + + + | 2022-01-25 00:00 | Swelling | [facility] | + + + + | 2022-01-25 00:00 | Swelling | [facility] | + + + + | 2022-01-25 00:00 | Swelling | [facility] | + + + + | 2022-01-25 00:00 | Swelling | [facility] | + + + + | 2022-01-25 00:00 | Swelling | [facility] | + + + + | 2022-01-25 00:00 | Swelling | [facility] | + + + + | 2022-01-28 00:00 | Cellulitis of left ring | [facility] | | | finger | | + + + + | 2022-01-28 00:00 | Cellulitis of left ring | [facility] | | | finger | | + + + + | 2022-01-28 00:00 | Cellulitis of left ring | [facility] | | | finger | | + + + + | 2022-01-28 00:00 | Cellulitis of left ring | [facility] | | | finger | | + + + + | 2022-01-28 00:00 | Cellulitis of left ring | [facility] | | | finger | | + + + + | 2022-01-28 00:00 | Cellulitis of left ring | [facility] | | | finger | | + + + + | 2022-01-28 00:00 | Cellulitis of left ring | [facility] | | | finger | | + + + + | 2022-01-28 00:00 | Cellulitis of left ring | [facility] | | | finger | | + + + + | 2022-01-28 00:00 | Cellulitis of left ring | [facility] | | | finger | | + + + + | 2022-01-28 00:00 | Cellulitis of left ring | [facility] | | | finger | | + + + + | 2022-02-10 00:00 | Injury of extremity | [facility] | + + + + | 2022-02-10 00:00 | Injury of extremity | [facility] | + + + + | 2022-02-10 00:00 | Injury of extremity | [facility] | + + + + | 2022-02-10 00:00 | Injury of extremity | [facility] | + + + + | 2022-02-10 00:00 | Injury of extremity | [facility] | + + + + | 2022-02-10 00:00 | Injury of extremity | [facility] | + + + + | 2022-02-10 00:00 | Injury of extremity | [facility] | + + + + | 2022-02-10 00:00 | Injury of extremity | [facility] | + + + + | 2022-02-10 00:00 | Injury of extremity | [facility] | + + + + | 2022-03-10 00:00 | Cellulitis of thumb | [facility] | + + + + | 2022-03-10 00:00 | Cellulitis of thumb | [facility] | + + + + | 2022-03-10 00:00 | Cellulitis of thumb | [facility] | + + + + | 2022-03-10 00:00 | Cellulitis of thumb | [facility] | + + + + | 2022-03-10 00:00 | Cellulitis of thumb | [facility] | + + + + | 2022-03-10 00:00 | Cellulitis of thumb | [facility] | + + + + | 2022-03-10 00:00 | Cellulitis of thumb | [facility] | + + + + | 2022-03-10 00:00 | Cellulitis of thumb | [facility] | + + + + | 2022-03-10 00:00 | Cellulitis of thumb | [facility] | + + + + | 2022-03-10 00:00 | Formication | [facility] | + + + + | 2022-03-10 00:00 | Formication | [facility] | + + + + | 2022-03-10 00:00 | Formication | [facility] | + + + + | 2022-03-10 00:00 | Formication | [facility] | + + + + | 2022-03-10 00:00 | Formication | [facility] | + + + + | 2022-03-10 00:00 | Formication | [facility] | + + + + | 2022-03-10 00:00 | Formication | [facility] | + + + + | 2022-03-10 00:00 | Formication | [facility] | + + + + | 2022-03-10 00:00 | Formication | [facility] | + + + + | 2022-03-14 00:00 | 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[facility] | + + + + | 2022-03-14 00:00 | 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[facility] | + + + + | 2022-03-14 00:00 | 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[facility] | + + + + | 2022-03-14 00:00 | 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[facility] | + + + + | 2022-03-14 00:00 | 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[facility] | + + + + | 2022-03-14 00:00 | 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[facility] | + + + + | 2022-03-14 00:00 | 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[facility] | + + + + | 2022-03-14 00:00 | 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[facility] | + + + + | 2022-03-22 00:00 | Swelling of hand | [facility] | + + + + | 2022-03-22 00:00 | Swelling of hand | [facility] | + + + + | 2022-03-22 00:00 | Swelling of hand | [facility] | + + + + | 2022-03-22 00:00 | Swelling of hand | [facility] | + + + + | 2022-03-22 00:00 | Swelling of hand | [facility] | + + + + | 2022-03-22 00:00 | Swelling of hand | [facility] | + + + + | 2022-03-22 00:00 | Swelling of hand | [facility] | + + + + | 2022-03-22 00:00 | Swelling of hand | [facility] | + + + + | 2022-10-13 [...] [facility] | + + + + | 2022-11-22 02:54 | TYPE 2 DIABETES MELLITUS | [facility] | | | WITHOUT COMPLICATIONS | | + + + + | 2022-11-22 02:54 | NICOTINE DEPENDENCE, | [facility] | | | UNSPECIFIED, UNCOMPLICATED | | + + + + | 2022-11-22 02:54 | Essential (primary) | [facility] | | | hypertension | | + + + + | 2022-11-22 02:54 | PERIAPICAL ABSCESS WITHOUT | [facility] | | | SINUS | | + + + + | 2022-11-22 02:54 | DISORDER OF THE SKIN AND | [facility] | | | SUBCUTANEOUS TISSUE, | | | | UNSPECIFIED | | + + + + | 2022-11-23 00:00 | Dental caries | [facility] | + + + + | 2022-11-23 00:00 | Dental caries | [facility] | + + + + | 2022-11-23 00:00 | Dental caries | [facility] | + + + + | 2022-11-23 00:00 | Dental caries | [facility] | + + + + | 2022-11-23 00:00 | Dental caries | [facility] | + + + + | 2022-11-23 00:00 | Dental caries | [facility] | + + + + | 2022-11-23 00:00 | Dental caries | [facility] | + + + + | 2022-11-23 00:00 | Dental caries | [facility] | + + + + | 2022-11-23 00:00 | Abscess of face | [facility] | + + + + | 2022-11-23 00:00 | Abscess of face | [facility] | + + + + | 2022-11-23 00:00 | Abscess of face | [facility] | + + + + | 2022-11-23 00:00 | Abscess of face | [facility] | + + + + | 2022-11-23 00:00 | Abscess of face | [facility] | + + + + | 2022-11-23 00:00 | Abscess of face | [facility] | + + + + | 2022-11-23 00:00 | Abscess of face | [facility] | + + + + | 2022-11-23 00:00 | Abscess of face | [facility] | + + + + | 2022-11-23 10:03 | TYPE 2 DIABETES MELLITUS | [facility] | | | WITHOUT COMPLICATIONS | | + + + + | 2022-11-23 10:03 | NICOTINE DEPENDENCE, | [facility] | | | UNSPECIFIED, UNCOMPLICATED | | + + + + | 2022-11-23 10:03 | Essential (primary) | [facility] | | | hypertension | | + + + + | 2022-11-23 10:03 | DENTAL CARIES, UNSPECIFIED | [facility] | | | | | + + + + | 2022-11-23 10:03 | DISEASES OF LIPS | [facility] | + + + + | 2022-11-23 10:03 | 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) | [facility] | | | DRUG THERAPY | | + + + + | 2022-12-16 00:00 | Dizziness of unknown | [facility] | | | etiology | | + + + + | 2022-12-16 00:00 | Dizziness of unknown | [facility] | | | etiology | | + + + + | 2022-12-16 00:00 | Dizziness of unknown | [facility] | | | etiology | | + + + + | 2022-12-16 00:00 | Dizziness of unknown | [facility] | | | etiology | | + + + + | 2022-12-16 00:00 | Dizziness of unknown | [facility] | | | etiology | | + + + + | 2022-12-16 00:00 | Dizziness of unknown | [facility] | | | etiology | | + + + + | 2022-12-16 00:00 | Dizziness of unknown | [facility] | | | etiology | | + + + + | 2022-12-16 00:00 | Dizziness of unknown | [facility] | | | etiology | | + [...] + + | 2022-12-16 20:45 | OTHER DETENTION (CURRENT) | [facility] | | | DRUG [...] + + | 2022-12-21 12:34 | OTHER DETENTION (CURRENT) | [facility] | | | DRUG THERAPY | | + + + + | 2023-01-01 00:00 | Infestation by Sarcoptes | [facility] | | | scabiei | | + + + + | 2023-01-01 00:00 | Infestation by Sarcoptes | [facility] | | | scabiei | | + + + + | 2023-01-01 00:00 | Infestation by Sarcoptes | [facility] | | | scabiei | | + + + + | 2023-01-01 00:00 | Infestation by Sarcoptes | [facility] | | | scabiei | | + + + + | 2023-01-01 00:00 | Infestation by Sarcoptes | [facility] | | | scabiei | | + + + + | 2023-01-01 00:00 | Hypothyroidism | [facility] | + + + + | 2023-01-01 00:00 | Hypothyroidism | [facility] | + + + + | 2023-01-01 00:00 | Hypothyroidism | [facility] | + + + + | 2023-01-01 00:00 | Hypothyroidism | [facility] | + + + + | 2023-01-01 00:00 | Hypothyroidism | [facility] | + + + + | 2023-01-01 00:00 | Hypertension | [facility] | + + + + | 2023-01-01 00:00 | Hypertension | [facility] | + + + + | 2023-01-01 00:00 | Hypertension | [facility] | + + + + | 2023-01-01 00:00 | Hypertension | [facility] | + + + + | 2023-01-01 00:00 | Hypertension | [facility] | + + + + | 2023-01-01 [...] | 2023-01-01 18:29 | 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) | [facility] | | | DRUG [...] + + | 2023-01-10 07:21 | OTHER DETENTION (CURRENT) | [facility] | | | DRUG THERAPY | | + + + + | 2023-01-27 00:00 | Chronic dermatitis of | [facility] | | | hands | | + + + + | 2023-01-27 00:00 | Chronic dermatitis of | [facility] | | | hands | | + + + + | 2023-01-27 00:00 | Chronic dermatitis of | [facility] | | | hands | | + + + + | 2023-01-27 00:00 | Chronic dermatitis of | [facility] | | | hands | | + + + + | 2023-01-27 00:00 | Chronic dermatitis of | [facility] | | | hands | | + [...] + + | 2023-01-27 09:48 | OTHER DETENTION (CURRENT) | [facility] | | | DRUG THERAPY | | + + + + | 2023-01-29 00:00 | Eczema | [facility] | + + + + | 2023-01-29 00:00 | Eczema | [facility] | + + + + | 2023-01-29 00:00 | Eczema | [facility] | + + + + | 2023-01-29 00:00 | Eczema | [facility] | + + + + | 2023-01-29 [...] + + | 2023-01-29 00:24 | 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) | [facility] | | | DRUG THERAPY | | + + + + | 2023-02-14 00:00 | Weakness | [facility] | + + + + | 2023-02-14 00:00 | Weakness | [facility] | + + + + | 2023-02-14 00:00 | Weakness | [facility] | + + + + | 2023-02-15 00:00 | Anxiety | [facility] | + + + + | 2023-02-15 00:00 | Anxiety | [facility] | + + + + | 2023-02-15 00:00 | Anxiety | [facility] | + + + + | 2023-02-16 00:00 | Dry skin | [facility] | + + + + | 2023-02-16 00:00 | Dry skin | [facility] | + + + + | 2023-02-16 00:00 | Dry skin | [facility] | + + + + | 2023-02-16 [...] + + | 2023-02-16 06:39 | 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) | [facility] | | | DRUG [...] hypertension | | + + + + Procedures [...] (missing) | | (unavailable | 21:51:07 | [facility] | | | | | [...] mg/dL | (missing) | | (unavailable | 35:07 | [facility] ) | | [facility] | | | | + + + +-------+---------+ + + + | Result panel [id number] | + + + + + +------+---------+ + | | 2022-12-21 | [facility] | 28 | mg/dL | (missing) | | (unavailable | 35:07 | [facility] | | | | | [...] lb | + + + +---------+ | 2023-02-26 00:00 | BMI | 18.5 | kg/m2 | + + + +---------+ | 2023-02-26 00:00 | BP_diastolic | 98 | mmHg | + + + +---------+ | 2023-02-26 00:00 | BP_systolic | 154 | mmHg | + + + +---------+ | 2023-02-26 00:00 | heart_rate | 82 | /min | + + + +---------+ | 2023-02-26 00:00 | height_metric | 162.56 | cm | + + + +---------+ | 2023-02-26 00:00 | height_standard | 64 | in | + + + +---------+ | 2023-02-26 00:00 | o2_saturation | 99 | % | + + + +---------+ | 2023-02-26 00:00 | respiration_rate | 20 | /min | + + + +---------+ | 2023-02-26 00:00 | temperature_metric | 36.61 | C | | | | | | + + + +---------+ | 2023-02-26 00:00 | | 97.9 | F | | | temperature_standar | | | | | d | | | + + + +---------+ | 2023-02-26 00:00 | weight_metric | 48.99 | kg | + + + +---------+ | 2023-02-26 00:00 | weight_standard | 108 | lb | + + + +---------+"
--- OUTSIDE RECORDS SUMMARY | ~2023-03-13 | XMS | Continuity of Care Document ---
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 | | | Guaifenesin/Dextromethorpha | | | | n | | + + + + | 2017-09-28 00:00 | | [facility] | | | Guaifenesin/Dextromethorpha | | | | n | | + + + + | 2017-09-28 00:00 | | [facility] | | | Guaifenesin/Dextromethorpha | | | | n | | + + + + | 2017-09-28 00:00 | | [facility] | | | Guaifenesin/Dextromethorpha | | | | n | | + + + + | 2017-09-28 00:00 | | [facility] | | | Guaifenesin/Dextromethorpha | | | | n | | + + + + | 2017-09-28 00:00 | | [facility] | | | Guaifenesin/Dextromethorpha | | | | n | | + + + + | 2017-09-28 00:00 | | [facility] | | | Guaifenesin/Dextromethorpha | | | | n | | + + + + | 2017-09-28 00:00 | | [facility] | | | Guaifenesin/Dextromethorpha | | | | n | | + + + + | 2017-09-28 00:00 | | [facility] | | | Guaifenesin/Dextromethorpha | | | | n | | + + + + | 2017-09-28 00:00 | | [facility] | | | Gufenesin/Dextromethorpha | | | | n | | + + + + | 2021-04-03 00:00 | ONDANSETRON HCL | [facility] | + + + + | 2021-04-03 00:00 | ONDANSETRON HCL | [facility] | + + + + | 2021-04-03 00:00 | ONDANSETRON HCL | [facility] | + + + + | 2021-04-03 00:00 | ONDANSETRON HCL | [facility] | + + + + | 2021-04-03 00:00 | ONDANSETRON HCL | [facility] | + + + + | 2021-04-03 00:00 | ONDANSETRON HCL | [facility] | + + + + | 2021-04-03 00:00 | ONDANSETRON HCL | [facility] | + + + + | 2021-04-03 00:00 | ONDANSETRON HCL | [facility] | + + + + | 2021-04-03 00:00 | ONDANSETRON HCL | [facility] | + + + + | 2021-04-03 00:00 | ONDANSETRON HCL | [facility] | + + + + | 2021-02-08 00:00 | TRIAMCINOLONE ACETONIDE | [facility] | + + + + | 2021-02-08 00:00 | TRIAMCINOLONE ACETONIDE | [facility] | + + + + | 2021-02-08 00:00 | TRIAMCINOLONE ACETONIDE | [facility] | + + + + | 2021-02-08 00:00 | TRIAMCINOLONE ACETONIDE | [facility] | + + + + | 2021-02-08 00:00 | TRIAMCINOLONE ACETONIDE | [facility] | + + + + | 2021-02-08 00:00 | TRIAMCINOLONE ACETONIDE | [facility] | + + + + | 2021-02-08 00:00 | TRIAMCINOLONE ACETONIDE | [facility] | + + + + | 2021-02-08 00:00 | TRIAMCINOLONE ACETONIDE | [facility] | + + + + | 2021-02-08 00:00 | TRIAMCINOLONE ACETONIDE | [facility] | + + + + | 2021-02-08 00:00 | TRIAMCINOLONE ACETONIDE | [facility] | + + + + | 2023-02-26 00:00 | TRIAMCINOLONE ACETONIDE | [facility] | + + + + | 2023-01-29 00:00 | UREA | [facility] | + + + + | 2023-01-29 00:00 | UREA | [facility] | + + + + | 2023-01-29 00:00 | UREA | [facility] | + + + + | 2021-08-27 00:00 | OLANZAPINE | [facility] | + + + + | 2021-08-27 00:00 | OLANZAPINE | [facility] | + + + + | 2021-08-27 00:00 | OLANZAPINE | [facility] | + + + + | 2021-08-27 00:00 | OLANZAPINE | [facility] | + + + + | 2021-08-27 00:00 | OLANZAPINE | [facility] | + + + + | 2021-08-27 00:00 | OLANZAPINE | [facility] | + + + + | 2021-08-27 00:00 | OLANZAPINE | [facility] | + + + + | 2021-08-27 00:00 | OLANZAPINE | [facility] | + + + + | 2021-08-27 00:00 | OLANZAPINE | [facility] | + + + + | 2021-08-27 00:00 | OLANZAPINE | [facility] | + + + + | 2021-09-01 00:00 | OLANZAPINE | [facility] | + + + + | 2021-09-01 00:00 | OLANZAPINE | [facility] | + + + + | 2021-09-01 00:00 | OLANZAPINE | [facility] | + + + + | 2021-09-01 00:00 | OLANZAPINE | [facility] | + + + + | 2021-09-01 00:00 | OLANZAPINE | [facility] | + + + + | 2021-09-01 00:00 | OLANZAPINE | [facility] | + + + + | 2021-09-01 00:00 | OLANZAPINE | [facility] | + + + + | 2021-09-01 00:00 | OLANZAPINE | [facility] | + + + + | 2021-09-01 00:00 | OLANZAPINE | [facility] | + + + + | 2021-09-01 00:00 | OLANZAPINE | [facility] | + + + + | 2022-10-13 00:00 | DOXYCYCLINE HYCLATE | [facility] | + + + + | 2022-01-31 00:00 | AMLODIPINE BESYLATE | [facility] | + + + + | 2022-01-31 00:00 | AMLODIPINE BESYLATE | [facility] | + + + + | 2022-01-31 00:00 | AMLODIPINE BESYLATE | [facility] | + + + + | 2022-01-23 00:00 | CEPHALEXIN | [facility] | + + + + | 2022-01-23 00:00 | CEPHALEXIN | [facility] | + + + + | 2022-01-23 00:00 | CEPHALEXIN | [facility] | + + + + | 2022-01-23 00:00 | CEPHALEXIN | [facility] | + + + + | 2022-01-23 00:00 | CEPHALEXIN | [facility] | + + + + | 2022-01-23 00:00 | CEPHALEXIN | [facility] | + + + + | 2022-01-23 00:00 | CEPHALEXIN | [facility] | + + + + | 2022-01-23 00:00 | CEPHALEXIN | [facility] | + + + + | 2022-01-23 00:00 | CEPHALEXIN | [facility] | + + + + | 2022-01-23 00:00 | CEPHALEXIN | [facility] | + + + + | 2022-03-10 00:00 | CEPHALEXIN | [facility] | + + + + | 2022-03-10 00:00 | CEPHALEXIN | [facility] | + + + + | 2017-09-07 00:00 | IBUPROFEN | [facility] | + + + + | 2017-09-07 00:00 | IBUPROFEN | [facility] | + + + + | 2017-09-07 00:00 | IBUPROFEN | [facility] | + + + + | 2017-09-07 00:00 | IBUPROFEN | [facility] | + + + + | 2017-09-07 00:00 | IBUPROFEN | [facility] | + + + + | 2017-09-07 00:00 | IBUPROFEN | [facility] | + + + + | 2017-09-07 00:00 | IBUPROFEN | [facility] | + + + + | 2017-09-07 00:00 | IBUPROFEN | [facility] | + + + + | 2017-09-07 00:00 | IBUPROFEN | [facility] | + + + + | 2017-09-07 00:00 | IBUPROFEN | [facility] | + + + + | 2023-01-01 00:00 | PERMETHRIN | [facility] | + + + + | 2023-01-01 00:00 | PERMETHRIN | [facility] | + + + + | 2023-01-01 00:00 | PERMETHRIN | [facility] | + + + + | 2023-01-01 00:00 | PERMETHRIN | [facility] | + + + + | 2023-01-01 00:00 | PERMETHRIN | [facility] | + + + + | 2019-01-27 00:00 | CEPHALEXIN | [facility] | + + + + | 2019-01-27 00:00 | CEPHALEXIN | [facility] | + + + + | 2019-01-27 00:00 | CEPHALEXIN | [facility] | + + + + | 2019-01-27 00:00 | CEPHALEXIN | [facility] | + + + + | 2019-01-27 00:00 | CEPHALEXIN | [facility] | + + + + | 2019-01-27 00:00 | CEPHALEXIN | [facility] | + + + + | 2019-01-27 00:00 | CEPHALEXIN | [facility] | + + + + | 2019-01-27 00:00 | CEPHALEXIN | [facility] | + + + + | 2019-01-27 00:00 | CEPHALEXIN | [facility] | + + + + | 2019-01-27 00:00 | CEPHALEXIN | [facility] | + + + + | 2017-08-07 00:00 | AZITHROMYCIN | [facility] | + + + + | 2017-08-07 00:00 | AZITHROMYCIN | [facility] | + + + + | 2017-08-07 00:00 | AZITHROMYCIN | [facility] | + + + + | 2017-08-07 00:00 | AZITHROMYCIN | [facility] | + + + + | 2017-08-07 00:00 | AZITHROMYCIN | [facility] | + + + + | 2017-08-07 00:00 | AZITHROMYCIN | [facility] | + + + + | 2017-08-07 00:00 | AZITHROMYCIN | [facility] | + + + + | 2017-08-07 00:00 | AZITHROMYCIN | [facility] | + + + + | 2017-08-07 00:00 | AZITHROMYCIN | [facility] | + + + + | 2017-08-07 00:00 | AZITHROMYCIN | [facility] | + + + + | 2022-03-14 00:00 | BETAMETHASONE DIPROPIONATE | [facility] | | | | | + + + + | 2016-11-17 00:00 | CEPHALEXIN | [facility] | + + + + | 2016-11-17 00:00 | CEPHALEXIN | [facility] | + + + + | 2016-11-17 00:00 | CEPHALEXIN | [facility] | + + + + | 2016-11-17 00:00 | CEPHALEXIN | [facility] | + + + + | 2016-11-17 00:00 | CEPHALEXIN | [facility] | + + + + | 2016-11-17 00:00 | CEPHALEXIN | [facility] | + + + + | 2016-11-17 00:00 | CEPHALEXIN | [facility] | + + + + | 2016-11-17 00:00 | CEPHALEXIN | [facility] | + + + + | 2016-11-17 00:00 | CEPHALEXIN | [facility] | + + + + | 2016-11-17 00:00 | CEPHALEXIN | [facility] | + + + + | 2016-11-20 00:00 | CEPHALEXIN | [facility] | + + + + | 2016-11-20 00:00 | CEPHALEXIN | [facility] | + + + + | 2016-11-20 00:00 | CEPHALEXIN | [facility] | + + + + | 2016-11-20 00:00 | CEPHALEXIN | [facility] | + + + + | 2016-11-20 00:00 | CEPHALEXIN | [facility] | + + + + | 2016-11-20 00:00 | CEPHALEXIN | [facility] | + + + + | 2016-11-20 00:00 | CEPHALEXIN | [facility] | + + + + | 2016-11-20 00:00 | CEPHALEXIN | [facility] | + + + + | 2016-11-20 00:00 | CEPHALEXIN | [facility] | + + + + | 2016-11-20 00:00 | CEPHALEXIN | [facility] | + + + + | 2022-02-03 00:00 | CEPHALEXIN | [facility] | + + + + | 2022-02-05 00:00 | CEPHALEXIN | [facility] | + + + + | 2022-02-06 00:00 | CEPHALEXIN | [facility] | + + + + | 2022-02-06 00:00 | CEPHALEXIN | [facility] | + + + + | 2022-02-07 00:00 | CEPHALEXIN | [facility] | + + + + | 2022-02-10 00:00 | CEPHALEXIN | [facility] | + + + + | 2022-02-16 00:00 | CEPHALEXIN | [facility] | + + + + | 2022-03-14 00:00 | CEPHALEXIN | [facility] | + + + + | 2022-03-19 00:00 | CEPHALEXIN | [facility] | + + + + | 2022-03-22 00:00 | CEPHALEXIN | [facility] | + + + + | 2022-10-13 00:00 | CEPHALEXIN | [facility] | + + + + | 2022-10-31 00:00 | CEPHALEXIN | [facility] | + + + + | 2022-11-21 00:00 | CEPHALEXIN | [facility] | + + + + | 2022-11-22 00:00 | CEPHALEXIN | [facility] | + + + + | 2022-11-23 00:00 | CEPHALEXIN | [facility] | + + + + | 2022-12-16 00:00 | CEPHALEXIN | [facility] | + + + + | 2022-12-21 00:00 | CEPHALEXIN | [facility] | + + + + | 2023-01-01 00:00 | CEPHALEXIN | [facility] | + + + + | 2023-01-10 00:00 | CEPHALEXIN | [facility] | + + + + | 2023-01-27 00:00 | CEPHALEXIN | [facility] | + + + + | 2023-01-29 00:00 | CEPHALEXIN | [facility] | + + + + | 2023-02-14 00:00 | CEPHALEXIN | [facility] | + + + + | 2023-02-15 00:00 | CEPHALEXIN | [facility] | + + + + | 2023-02-16 00:00 | CEPHALEXIN | [facility] | + + + + | 2023-02-16 00:00 | CEPHALEXIN | [facility] | + + + + | 2023-02-26 00:00 | CEPHALEXIN | [facility] | + + + + | 2020-07-15 00:00 | Erythromycin Base | [facility] | + + + + | 2020-07-15 00:00 | Erythromycin Base | [facility] | + + + + | 2020-07-15 00:00 | Erythromycin Base | [facility] | + + + + 2020-07-15 00:00 | Erythromycin Base | [facility] | + + + + 2020-07-15 00:00 | Erythromycin Base | [facility] | + + + + | 2020-07-15 00:00 | Erythromycin Base | [facility] | + + + + | 2020-07-15 00:00 | Erythromycin Base | [facility] | + + + + 2020-07-15 00:00 | Erythromycin Base | [facility] | + + + + | 2020-07-15 00:00 | Erythromycin Base | [facility] | + + + + | 2020-07-15 00:00 | Erythromycin Base | [facility] | + + + + | 2022-10-13 00:00 | ONDANSETRON | [facility] | + + + + | 2022-02-03 00:00 | Oseltamivir Phosphate | [facility] | + + + + | 2022-02-05 00:00 | Oseltamivir Phosphate | [facility] | + + + + | 2022-02-06 00:00 | Oseltamivir Phosphate | [facility] | + + + + | 2022-02-06 00:00 | Oseltamivir Phosphate | [facility] | + + + + | 2022-02-07 00:00 | Oseltamivir Phosphate | [facility] | + + + + | 2022-02-10 00:00 | Oseltamivir Phosphate | [facility] | + + + + | 2022-02-16 00:00 | Oseltamivir Phosphate | [facility] | + + + + | 2022-03-14 00:00 | Oseltamivir Phosphate | [facility] | + + + + | 2022-03-19 00:00 | Oseltamivir Phosphate | [facility] | + + + + | 2022-03-22 00:00 | Oseltamivir Phosphate | [facility] | + + + + | 2022-10-13 00:00 | Oseltamivir Phosphate | [facility] | + + + + | 2022-10-31 00:00 | Oseltamivir Phosphate | [facility] | + + + + | 2022-11-21 00:00 | Oseltamivir Phosphate | [facility] | + + + + | 2022-11-22 00:00 | Oseltamivir Phosphate | [facility] | + + + + | 2022-11-23 00:00 | Oseltamivir Phosphate | [facility] | + + + + | 2022-12-16 00:00 | Oseltamivir Phosphate | [facility] | + + + + | 2022-12-21 00:00 | Oseltamivir Phosphate | [facility] | + + + + | 2023-01-01 00:00 | Oseltamivir Phosphate | [facility] | + + + + | 2023-01-10 00:00 | Oseltamivir Phosphate | [facility] | + + + + | 2023-01-27 00:00 | Oseltamivir Phosphate | [facility] | + + + + | 2023-01-29 00:00 | Oseltamivir Phosphate | [facility] | + + + + | 2023-02-14 00:00 | Oseltamivir Phosphate | [facility] | + + + + | 2023-02-15 00:00 | Oseltamivir Phosphate | [facility] | + + + + | 2023-02-16 00:00 | Oseltamivir Phosphate | [facility] | + + + + | 2023-02-16 00:00 | Oseltamivir Phosphate | [facility] | + + + + | 2023-02-26 00:00 | Oseltamivir Phosphate | [facility] | + + + + | 2022-02-03 00:00 | PIMOZIDE | [facility] | + + + + | 2022-02-05 00:00 | PIMOZIDE | [facility] | + + + + | 2022-02-06 00:00 | PIMOZIDE | [facility] | + + + + | 2022-02-06 00:00 | PIMOZIDE | [facility] | + + + + | 2022-02-07 00:00 | PIMOZIDE | [facility] | + + + + | 2022-02-10 00:00 | PIMOZIDE | [facility] | + + + + | 2022-02-16 00:00 | PIMOZIDE | [facility] | + + + + | 2022-03-14 00:00 | PIMOZIDE | [facility] | + + + + | 2022-03-19 00:00 | PIMOZIDE | [facility] | + + + + | 2022-03-22 00:00 | PIMOZIDE | [facility] | + + + + | 2022-10-13 00:00 | PIMOZIDE | [facility] | + + + + | 2022-10-31 00:00 | PIMOZIDE | [facility] | + + + + | 2022-11-21 00:00 | PIMOZIDE | [facility] | + + + + | 2022-11-22 00:00 | PIMOZIDE | [facility] | + + + + | 2022-11-23 00:00 | PIMOZIDE | [facility] | + + + + | 2022-12-16 00:00 | PIMOZIDE | [facility] | + + + + | 2022-12-21 00:00 | PIMOZIDE | [facility] | + + + + | 2023-01-01 00:00 | PIMOZIDE | [facility] | + + + + | 2023-01-10 00:00 | PIMOZIDE | [facility] | + + + + | 2023-01-27 00:00 | PIMOZIDE | [facility] | + + + + | 2023-01-29 00:00 | PIMOZIDE | [facility] | + + + + | 2023-02-14 00:00 | PIMOZIDE | [facility] | + + + + | 2023-02-15 00:00 | PIMOZIDE | [facility] | + + + + | 2023-02-16 00:00 | PIMOZIDE | [facility] | + + + + | 2023-02-16 00:00 | PIMOZIDE | [facility] | + + + + | 2023-02-26 00:00 | PIMOZIDE | [facility] | + + + + | 2017-06-18 00:00 | predniSONE | [facility] | + + + + | 2017-06-18 00:00 | predniSONE | [facility] | + + + + | 2017-06-18 00:00 | predniSONE | [facility] | + + + + | 2017-06-18 00:00 | predniSONE | [facility] | + + + + | 2017-06-18 00:00 | predniSONE | [facility] | + + + + | 2017-06-18 00:00 | predniSONE | [facility] | + + + + | 2017-06-18 00:00 | predniSONE | [facility] | + + + + | 2017-06-18 00:00 | predniSONE | [facility] | + + + + | 2017-06-18 00:00 | predniSONE | [facility] | + + + + | 2017-06-18 00:00 | predniSONE | [facility] | + + + + | 2020-01-23 00:00 | predniSONE | [facility] | + + + + | 2020-01-23 00:00 | predniSONE | [facility] | + + + + | 2020-01-23 00:00 | predniSONE | [facility] | + + + + | 2020-01-23 00:00 | predniSONE | [facility] | + + + + | 2020-01-23 00:00 | predniSONE | [facility] | + + + + | 2020-01-23 00:00 | predniSONE | [facility] | + + + + | 2020-01-23 00:00 | predniSONE | [facility] | + + + + | 2020-01-23 00:00 | predniSONE | [facility] | + + + + | 2020-01-23 00:00 | predniSONE | [facility] | + + + + | 2020-01-23 00:00 | predniSONE | [facility] | + + + + | 2022-03-22 00:00 | predniSONE | [facility] | + + + + | 2016-05-14 00:00 | HALOPERIDOL | [facility] | + + + + | 2016-05-14 00:00 | HALOPERIDOL | [facility] | + + + + | 2016-05-14 00:00 | HALOPERIDOL | [facility] | + + + + | 2016-05-14 00:00 | HALOPERIDOL | [facility] | + + + + | 2016-05-14 00:00 | HALOPERIDOL | [facility] | + + + + | 2016-05-14 00:00 | HALOPERIDOL | [facility] | + + + + | 2016-05-14 00:00 | HALOPERIDOL | [facility] | + + + + | 2016-05-14 00:00 | HALOPERIDOL | [facility] | + + + + | 2016-05-14 00:00 | HALOPERIDOL | [facility] | + + + + | 2016-05-14 00:00 | HALOPERIDOL | [facility] | + + + + | 2018-02-21 00:00 | HALOPERIDOL | [facility] | + + + + | 2018-02-21 00:00 | HALOPERIDOL | [facility] | + + + + | 2018-02-21 00:00 | HALOPERIDOL | [facility] | + + + + | 2018-02-21 00:00 | HALOPERIDOL | [facility] | + + + + | 2018-02-21 00:00 | HALOPERIDOL | [facility] | + + + + | 2018-02-21 00:00 | HALOPERIDOL | [facility] | + + + + | 2018-02-21 00:00 | HALOPERIDOL | [facility] | + + + + | 2018-02-21 00:00 | HALOPERIDOL | [facility] | + + + + | 2018-02-21 00:00 | HALOPERIDOL | [facility] | + + + + | 2018-02-21 00:00 | HALOPERIDOL | [facility] | + + + + | 2022-02-03 00:00 | HALOPERIDOL | [facility] | + + + + | 2022-02-05 00:00 | HALOPERIDOL | [facility] | + + + + | 2022-02-06 00:00 | HALOPERIDOL | [facility] | + + + + | 2022-02-06 00:00 | HALOPERIDOL | [facility] | + + + + | 2022-02-07 00:00 | [facility]OL | [facility] | + + + + | 2022-02-10 00:00 | [facility]OL | [facility] | + + + + | 2022-02-16 00:00 | [facility]OL | [facility] | + + + + | 2022-03-14 00:00 | [facility]OL | [facility] | + + + + | 2022-03-19 00:00 | [facility] | [facility] | + + + + | 2022-03-22 00:00 | [facility]OL | [facility] | + + + + | 2022-10-13 00:00 | [facility]OL | [facility] | + + + + | 2022-10-31 00:00 | [facility]OL | [facility] | + + + + | 2022-11-21 00:00 | [facility] | [facility] | + + + + | 2022-11-22 00:00 | [facility]OL | [facility] | + + + + | 2022-11-23 00:00 | [facility] | [facility] | + + + + | 2022-12-16 00:00 | [facility]OL | [facility] | + + + + | 2022-12-21 00:00 | [facility]OL | [facility] | + + + + | 2023-01-01 00:00 | [facility]IDOL | [facility] | + + + + | 2023-01-10 00:00 | [facility]OL | [facility] | + + + + | 2023-01-27 00:00 | [facility]IDOL | [facility] | + + + + | 2023-01-29 00:00 | [facility]OL | [facility] | + + + + | 2023-02-14 00:00 | [facility]OL | [facility] | + + + + | 2023-02-15 00:00 | [facility]IDOL | [facility] | + + + + | 2023-02-16 00:00 | HAL[facility]IDOL | [facility] | + + + + | 2023-02-16 00:00 | [facility]OL | [facility] | + + + + | 2023-02-26 00:00 | [facility]IDOL | [facility] | + + + + | 2021-07-02 00:00 | LISINOPRIL | [facility] | + + + + | 2021-07-02 00:00 | LISINOPRIL | [facility] | + + + + | 2021-07-02 00:00 | LISINOPRIL | [facility] | + + + + | 2021-07-02 00:00 | LISINOPRIL | [facility] | + + + + | 2021-07-02 00:00 | LISINOPRIL | [facility] | + + + + | 2021-07-02 00:00 | LISINOPRIL | [facility] | + + + + | 2021-07-02 00:00 | LISINOPRIL | [facility] | + + + + | 2021-07-02 00:00 | LISINOPRIL | [facility] | + + + + | 2021-07-02 00:00 | LISINOPRIL | [facility] | + + + + | 2021-07-02 00:00 | LISINOPRIL | [facility] | + + + + | 2023-01-01 00:00 | LISINOPRIL | [facility] | + + + + | 2023-01-01 00:00 | LISINOPRIL | [facility] | + + + + | 2023-01-01 00:00 | LISINOPRIL | [facility] | + + + + | 2023-01-01 00:00 | LISINOPRIL | [facility] | + + + + | 2023-01-01 00:00 | LISINOPRIL | [facility] | + + + + | 2023-01-10 00:00 | LISINOPRIL | [facility] | + + + + | 2023-01-27 00:00 | LISINOPRIL | [facility] | + + + + | 2023-01-29 00:00 | LISINOPRIL | [facility] | + + + + | 2023-02-14 00:00 | LISINOPRIL | [facility] | + + + + | 2023-02-15 00:00 | LISINOPRIL | [facility] | + + + + | 2023-02-16 00:00 | LISINOPRIL | [facility] | + + + + | 2023-02-16 00:00 | LISINOPRIL | [facility] | + + + + | 2023-02-26 00:00 | LISINOPRIL | [facility] | + + + + | 2023-01-01 00:00 | HYDROCHLOROTHIAZIDE | [facility] | + + + + | 2023-01-01 00:00 | HYDROCHLOROTHIAZIDE | [facility] | + + + + | 2023-01-01 00:00 | HYDROCHLOROTHIAZIDE | [facility] | + + + + | 2023-01-01 00:00 | HYDROCHLOROTHIAZIDE | [facility] | + + + + | 2023-01-01 00:00 | HYDROCHLOROTHIAZIDE | [facility] | + + + + | 2023-01-10 00:00 | HYDROCHLOROTHIAZIDE | [facility] | + + + + | 2023-01-27 00:00 | HYDROCHLOROTHIAZIDE | [facility] | + + + + | 2023-01-29 00:00 | HYDROCHLOROTHIAZIDE | [facility] | + + + + | 2023-02-14 00:00 | HYDROCHLOROTHIAZIDE | [facility] | + + + + | 2023-02-15 00:00 | HYDROCHLOROTHIAZIDE | [facility] | + + + + | 2023-02-16 00:00 | HYDROCHLOROTHIAZIDE | [facility] | + + + + | 2023-02-16 00:00 | HYDROCHLOROTHIAZIDE | [facility] | + + + + | 2023-02-26 00:00 | HYDROCHLOROTHIAZIDE | [facility] | + + + + | 2022-11-22 00:00 | AMOXICILLIN/POTASSIUM CLAV | [facility] | | | | | + + + + | 2022-11-22 00:00 | AMOXICILLIN/POTASSIUM CLAV | [facility] | | | | | + + + + | 2017-09-28 00:00 | ALBUTEROL SULFATE | [facility] | + + + + | 2017-09-28 00:00 | ALBUTEROL SULFATE | [facility] | + + + + | 2017-09-28 00:00 | ALBUTEROL SULFATE | [facility] | + + + + | 2017-09-28 00:00 | ALBUTEROL SULFATE | [facility] | + + + + | 2017-09-28 00:00 | ALBUTEROL SULFATE | [facility] | + + + + | 2017-09-28 00:00 | ALBUTEROL SULFATE | [facility] | + + + + | 2017-09-28 00:00 | ALBUTEROL SULFATE | [facility] | + + + + | 2017-09-28 00:00 | ALBUTEROL SULFATE | [facility] | + + + + | 2017-09-28 00:00 | ALBUTEROL SULFATE | [facility] | + + + + | 2017-09-28 00:00 | ALBUTEROL SULFATE | [facility] | + + + + | 2017-09-07 00:00 | CLINDAMYCIN HCL | [facility] | + + + + | 2017-09-07 00:00 | CLINDAMYCIN HCL | [facility] | + + + + | 2017-09-07 00:00 | CLINDAMYCIN HCL | [facility] | + + + + | 2017-09-07 00:00 | CLINDAMYCIN HCL | [facility] | + + + + | 2017-09-07 00:00 | CLINDAMYCIN HCL | [facility] | + + + + | 2017-09-07 00:00 | CLINDAMYCIN HCL | [facility] | + + + + | 2017-09-07 00:00 | CLINDAMYCIN HCL | [facility] | + + + + | 2017-09-07 00:00 | CLINDAMYCIN HCL | [facility] | + + + + | 2017-09-07 00:00 | CLINDAMYCIN HCL | [facility] | + + + + | 2017-09-07 00:00 | CLINDAMYCIN HCL | [facility] | + + + + | 2020-06-16 00:00 | CLINDAMYCIN HCL | [facility] | + + + + | 2020-06-16 00:00 | CLINDAMYCIN HCL | [facility] | + + + + | 2020-06-16 00:00 | CLINDAMYCIN HCL | [facility] | + + + + 2020-06-16 00:00 | CLINDAMYCIN HCL | [facility] | + + + + 2020-06-16 00:00 | CLINDAMYCIN HCL | [facility] | + + + + | 2020-06-16 00:00 | CLINDAMYCIN HCL | [facility] | + + + + | 2020-06-16 00:00 | CLINDAMYCIN HCL | [facility] | + + + + | 2020-06-16 00:00 | CLINDAMYCIN HCL | [facility] | + + + + 2020-06-16 00:00 | CLINDAMYCIN HCL | [facility] | + + + + 2020-06-16 00:00 | CLINDAMYCIN HCL | [facility] | + + + + | 2020-07-12 00:00 | CLINDAMYCIN HCL | [facility] | + + + + | 2020-07-12 00:00 | CLINDAMYCIN HCL | [facility] | + + + + | 2020-07-12 00:00 | CLINDAMYCIN HCL | [facility] | + + + + 2020-07-12 00:00 | CLINDAMYCIN HCL | [facility] | + + + + 2020-07-12 00:00 | CLINDAMYCIN HCL | [facility] | + + + + | 2020-07-12 00:00 | CLINDAMYCIN HCL | [facility] | + + + + | 2020-07-12 00:00 | CLINDAMYCIN HCL | [facility] | + + + + | 2020-07-12 00:00 | CLINDAMYCIN HCL | [facility] | + + + + | 2020-07-12 00:00 | CLINDAMYCIN HCL | [facility] | + + + + | 2020-07-12 00:00 | CLINDAMYCIN HCL | [facility] | + + + + | 2022-11-23 00:00 | CLINDAMYCIN HCL | [facility] | + + + + | 2022-11-23 00:00 | CLINDAMYCIN HCL | [facility] | + + + + | 2017-08-07 00:00 | METHYLPREDNISOLONE | [facility] | + + + + | 2017-08-07 00:00 | METHYLPREDNISOLONE | [facility] | + + + + | 2017-08-07 00:00 | METHYLPREDNISOLONE | [facility] | + + + + | 2017-08-07 00:00 | METHYLPREDNISOLONE | [facility] | + + + + | 2017-08-07 00:00 | METHYLPREDNISOLONE | [facility] | + + + + | 2017-08-07 00:00 | METHYLPREDNISOLONE | [facility] | + + + + | 2017-08-07 00:00 | METHYLPREDNISOLONE | [facility] | + + + + | 2017-08-07 00:00 | METHYLPREDNISOLONE | [facility] | + + + + | 2017-08-07 00:00 | METHYLPREDNISOLONE | [facility] | + + + + | 2017-08-07 00:00 | METHYLPREDNISOLONE | [facility] | + + + + | 2021-08-27 00:00 | Chlorhexidine Gluconate | [facility] | + + + + | 2021-08-27 00:00 | Chlorhexidine Gluconate | [facility] | + + + + | 2021-08-27 00:00 | Chlorhexidine Gluconate | [facility] | + + + + | 2021-08-27 00:00 | Chlorhexidine Gluconate | [facility] | + + + + | 2021-08-27 00:00 | Chlorhexidine Gluconate | [facility] | + + + + | 2021-08-27 00:00 | Chlorhexidine Gluconate | [facility] | + + + + | 2021-08-27 00:00 | Chlorhexidine Gluconate | [facility] | + + + + | 2021-08-27 00:00 | Chlorhexidine Gluconate | [facility] | + + + + | 2021-08-27 00:00 | Chlorhexidine Gluconate | [facility] | + + + + | 2021-08-27 00:00 | Chlorhexidine Gluconate | [facility] | + + + + | 2014-02-25 00:00 | | [facility] | | | SULFAMETHOXAZOLE/TRIMETHOPR | | | | IM DS | | + + + + | 2014-02-25 00:00 | | [facility] | | | SULFAMETHOXAZOLE/TRIMETHOPR | | | | IM DS | | + + + + | 2014-02-25 00:00 | | [facility] | | | SULFAMETHOXAZOLE/TRIMETHOPR | | | | IM DS | | + + + + | 2014-02-25 00:00 | | [facility] | | | SULFAMETHOXAZOLE/TRIMETHOPR | | | | IM DS | | + + + + | 2014-02-25 00:00 | | [facility] | | | SULFAMETHOXAZOLE/TRIMETHOPR | | | | IM DS | | + + + + | 2014-02-25 00:00 | | [facility] | | | SULFAMETHOXAZOLE/TRIMETHOPR | | | | IM DS | | + + + + | 2014-02-25 00:00 | | [facility] | | | SULFAMETHOXAZOLE/TRIMETHOPR | | | | IM DS | | + + + + | 2014-02-25 00:00 | | [facility] | | | SULFAMETHOXAZOLE/TRIMETHOPR | | | | IM DS | | + + + + | 2014-02-25 00:00 | | [facility] | | | SULFAMETHOXAZOLE/TRIMETHOPR | | | | IM DS | | + + + + | 2014-02-25 00:00 | | [facility] | | | SULFAMETHOXAZOLE/TRIMETHOPR | | | | IM DS | | + + + + | 2017-10-08 00:00 | | [facility] | | | SULFAMETHOXAZOLE/TRIMETHOPR | | | | IM DS | | + + + + | 2017-10-08 00:00 | | [facility] | | | SULFAMETHOXAZOLE/TRIMETHOPR | | | | IM DS | | + + + + | 2017-10-08 00:00 | | [facility] | | | SULFAMETHOXAZOLE/TRIMETHOPR | | | | IM DS | | + + + + | 2017-10-08 00:00 | | [facility] | | | SULFAMETHOXAZOLE/TRIMETHOPR | | | | IM DS | | + + + + | 2017-10-08 00:00 | | [facility] | | | SULFAMETHOXAZOLE/TRIMETHOPR | | | | IM DS | | + + + + | 2017-10-08 00:00 | | [facility] | | | SULFAMETHOXAZOLE/TRIMETHOPR | | | | IM DS | | + + + + | 2017-10-08 00:00 | | [facility] | | | SULFAMETHOXAZOLE/TRIMETHOPR | | | | IM DS | | + + + + | 2017-10-08 00:00 | | [facility] | | | SULFAMETHOXAZOLE/TRIMETHOPR | | | | IM DS | | + + + + | 2017-10-08 00:00 | | [facility] | | | SULFAMETHOXAZOLE/TRIMETHOPR | | | | IM DS | | + + + + | 2017-10-08 00:00 | | [facility] | | | SULFAMETHOXAZOLE/TRIMETHOPR | | | | IM DS | | + + + + | 2022-01-31 00:00 | | [facility] | | | SULFAMETHOXAZOLE/TRIMETHOPR | | | | IM DS | | + + + + | 2017-06-18 00:00 | ALBUTEROL SULFATE | [facility] | + + + + | 2017-06-18 00:00 | ALBUTEROL SULFATE | [facility] | + + + + | 2017-06-18 00:00 | ALBUTEROL SULFATE | [facility] | + + + + | 2017-06-18 00:00 | ALBUTEROL SULFATE | [facility] | + + + + | 2017-06-18 00:00 | ALBUTEROL SULFATE | [facility] | + + + + | 2017-06-18 00:00 | ALBUTEROL SULFATE | [facility] | + + + + | 2017-06-18 00:00 | ALBUTEROL SULFATE | [facility] | + + + + | 2017-06-18 00:00 | ALBUTEROL SULFATE | [facility] | + + + + | 2017-06-18 00:00 | ALBUTEROL SULFATE | [facility] | + + + + | 2017-06-18 00:00 | ALBUTEROL SULFATE | [facility] | + + + + | 2017-08-07 00:00 | ALBUTEROL SULFATE | [facility] | + + + + | 2017-08-07 00:00 | ALBUTEROL SULFATE | [facility] | + + + + | 2017-08-07 00:00 | ALBUTEROL SULFATE | [facility] | + + + + | 2017-08-07 00:00 | ALBUTEROL SULFATE | [facility] | + + + + | 2017-08-07 00:00 | ALBUTEROL SULFATE | [facility] | + + + + | 2017-08-07 00:00 | ALBUTEROL SULFATE | [facility] | + + + + | 2017-08-07 00:00 | ALBUTEROL SULFATE | [facility] | + + + + | 2017-08-07 00:00 | ALBUTEROL SULFATE | [facility] | + + + + | 2017-08-07 00:00 | ALBUTEROL SULFATE | [facility] | + + + + | 2017-08-07 00:00 | ALBUTEROL SULFATE | [facility] | + + + + | 2022-02-03 00:00 | ONDANSETRON | [facility] | + + + + | 2022-02-05 00:00 | ONDANSETRON | [facility] | + + + + | 2022-02-06 00:00 | ONDANSETRON | [facility] | + + + + | 2022-02-06 00:00 | ONDANSETRON | [facility] | + + + + | 2022-02-07 00:00 | ONDANSETRON | [facility] | + + + + | 2022-02-10 00:00 | ONDANSETRON | [facility] | + + + + | 2022-02-16 00:00 | ONDANSETRON | [facility] | + + + + | 2022-03-14 00:00 | ONDANSETRON | [facility] | + + + + | 2022-03-19 00:00 | ONDANSETRON | [facility] | + + + + | 2022-03-22 00:00 | ONDANSETRON | [facility] | + + + + | 2022-10-13 00:00 | ONDANSETRON | [facility] | + + + + | 2022-10-31 00:00 | ONDANSETRON | [facility] | + + + + | 2022-11-21 00:00 | ONDANSETRON | [facility] | + + + + | 2022-11-22 00:00 | ONDANSETRON | [facility] | + + + + | 2022-11-23 00:00 | ONDANSETRON | [facility] | + + + + | 2022-12-16 00:00 | ONDANSETRON | [facility] | + + + + | 2022-12-21 00:00 | ONDANSETRON | [facility] | + + + + | 2023-01-01 00:00 | ONDANSETRON | [facility] | + + + + | 2023-01-10 00:00 | ONDANSETRON | [facility] | + + + + | 2023-01-27 00:00 | ONDANSETRON | [facility] | + + + + | 2023-01-29 00:00 | ONDANSETRON | [facility] | + + + + | 2023-02-14 00:00 | ONDANSETRON | [facility] | + + + + | 2023-02-15 00:00 | ONDANSETRON | [facility] | + + + + | 2023-02-16 00:00 | ONDANSETRON | [facility] | + + + + | 2023-02-16 00:00 | ONDANSETRON | [facility] | + + + + | 2023-02-26 00:00 | ONDANSETRON | [facility] | + + + + | 2020-12-15 00:00 | MECLIZINE HCL | [facility] | + + + + | 2020-12-15 00:00 | MECLIZINE HCL | [facility] | + + + + | 2020-12-15 00:00 | MECLIZINE HCL | [facility] | + + + + | 2020-12-15 00:00 | MECLIZINE HCL | [facility] | + + + + | 2020-12-15 00:00 | MECLIZINE HCL | [facility] | + + + + | 2020-12-15 00:00 | MECLIZINE HCL | [facility] | + + + + | 2020-12-15 00:00 | MECLIZINE HCL | [facility] | + + + + | 2020-12-15 00:00 | MECLIZINE HCL | [facility] | + + + + | 2020-12-15 00:00 | MECLIZINE HCL | [facility] | + + + + | 2020-12-15 00:00 | MECLIZINE HCL | [facility] | + + + + Problems + + + + | date | description | facility | + + + + | 2016-05-14 00:00 | Encounter for medication | [facility] | | | refill | | + + + + | 2016-05-14 00:00 | Encounter for medication | [facility] | | | refill | | + + + + | 2016-05-14 00:00 | Encounter for medication | [facility] | | | refill | | + + + + | 2016-05-14 00:00 | Encounter for medication | [facility] | | | refill | | + + + + | 2016-05-14 00:00 | Encounter for medication | [facility] | | | refill | | + + + + | 2016-05-14 00:00 | Encounter for medication | [facility] | | | refill | | + + + + | 2016-05-14 00:00 | Encounter for medication | [facility] | | | refill | | + + + + | 2016-05-14 00:00 | Encounter for medication | [facility] | | | refill | | + + + + | 2016-05-14 00:00 | Encounter for medication | [facility] | | | refill | | + + + + | 2016-05-14 00:00 | Encounter for medication | [facility] | | | refill | | + + + + | 2016-08-19 00:00 | Encounter for medical | [facility] | | | screening examination | | + + + + | 2016-08-19 00:00 | Encounter for medical | [facility] | | | screening examination | | + + + + | 2016-08-19 00:00 | Encounter for medical [facility] | | | screening examination | | + + + + | 2016-08-19 00:00 | Encounter for medical | [facility] | | | screening examination | | + + + + | 2016-08-19 00:00 | Encounter for medical [facility] | | | screening examination | | + + + + | 2016-08-19 00:00 | Encounter for medical | [facility] | | | screening examination | | + + + + | 2016-08-19 00:00 | Encounter for medical [facility] | | | screening examination | | + + + + | 2016-08-19 00:00 | Encounter for medical | [facility] | | | screening examination | | + + + + | 2016-08-19 00:00 | Encounter for medical | [facility] | | | screening examination | | + + + + | 2016-08-19 00:00 | Encounter for medical | [facility] | | | screening examination | | + + + + | 2016-10-10 00:00 | Constipation | [facility] | + + + + | 2016-10-10 00:00 | Constipation | [facility] | + + + + | 2016-10-10 00:00 | Constipation | [facility] | + + + + | 2016-10-10 00:00 | Constipation | [facility] | + + + + | 2016-10-10 00:00 | Constipation | [facility] | + + + + | 2016-10-10 00:00 | Constipation | [facility] | + + + + | 2016-10-10 00:00 | Constipation | [facility] | + + + + | 2016-10-10 00:00 | Constipation | [facility] | + + + + | 2016-10-10 00:00 | Constipation | [facility] | + + + + | 2016-10-10 00:00 | Constipation | [facility] | + + + + | 2016-10-10 00:00 | Nonspecific abdominal pain | [facility] | | | | | + + + + | 2016-10-10 00:00 | Nonspecific abdominal pain | [facility] | | | | | + + + + | 2016-10-10 00:00 | Nonspecific abdominal pain | [facility] | | | | | + + + + | 2016-10-10 00:00 | Nonspecific abdominal pain | [facility] | | | | | + + + + | 2016-10-10 00:00 | Nonspecific abdominal pain | [facility] | | | | | + + + + | 2016-10-10 00:00 | Nonspecific abdominal pain | [facility] | | | | | + + + + | 2016-10-10 00:00 | Nonspecific abdominal pain | [facility] | | | | | + + + + | 2016-10-10 00:00 | Nonspecific abdominal pain | [facility] | | | | | + + + + | 2016-10-10 00:00 | Nonspecific abdominal pain | [facility] | | | | | + + + + | 2016-10-10 00:00 | Nonspecific abdominal pain | [facility] | | | | | + + + + | 2016-10-31 00:00 | Methamphetamine abuse | [facility] | + + + + | 2016-10-31 00:00 | Methamphetamine abuse | [facility] | + + + + | 2016-10-31 00:00 | Methamphetamine abuse | [facility] | + + + + | 2016-10-31 00:00 | Methamphetamine abuse | [facility] | + + + + | 2016-10-31 00:00 | Methamphetamine abuse | [facility] | + + + + | 2016-10-31 00:00 | Methamphetamine abuse | [facility] | + + + + | 2016-10-31 00:00 | Methamphetamine abuse | [facility] | + + + + | 2016-10-31 00:00 | Methamphetamine abuse | [facility] | + + + + | 2016-10-31 00:00 | Methamphetamine abuse | [facility] | + + + + | 2016-10-31 00:00 | Methamphetamine abuse | [facility] | + + + + | 2016-10-31 00:00 | Chronic abdominal pain | [facility] | + + + + | 2016-10-31 00:00 | Chronic abdominal pain | [facility] | + + + + | 2016-10-31 00:00 | Chronic abdominal pain | [facility] | + + + + | 2016-10-31 00:00 | Chronic abdominal pain | [facility] | + + + + | 2016-10-31 00:00 | Chronic abdominal pain | [facility] | + + + + | 2016-10-31 00:00 | Chronic abdominal pain | [facility] | + + + + | 2016-10-31 00:00 | Chronic abdominal pain | [facility] | + + + + | 2016-10-31 00:00 | Chronic abdominal pain | [facility] | + + + + | 2016-10-31 00:00 | Chronic abdominal pain | [facility] | + + + + | 2016-10-31 00:00 | Chronic abdominal pain | [facility] | + + + + | 2016-10-31 00:00 | Weight loss | [facility] | + + + + | 2016-10-31 00:00 | Weight loss | [facility] | + + + + | 2016-10-31 00:00 | Weight loss | [facility] | + + + + | 2016-10-31 00:00 | Weight loss | [facility] | + + + + | 2016-10-31 00:00 | Weight loss | [facility] | + + + + | 2016-10-31 00:00 | Weight loss | [facility] | + + + + | 2016-10-31 00:00 | Weight loss | [facility] | + + + + | 2016-10-31 00:00 | Weight loss | [facility] | + + + + | 2016-10-31 00:00 | Weight loss | [facility] | + + + + | 2016-10-31 00:00 | Weight loss | [facility] | + + + + | 2016-11-17 00:00 | Cellulitis | [facility] | + + + + | 2016-11-17 00:00 | Cellulitis | [facility] | + + + + | 2016-11-17 00:00 | Cellulitis | [facility] | + + + + | 2016-11-17 00:00 | Cellulitis | [facility] | + + + + | 2016-11-17 00:00 | Cellulitis | [facility] | + + + + | 2016-11-17 00:00 | Cellulitis | [facility] | + + + + | 2016-11-17 00:00 | Cellulitis | [facility] | + + + + | 2016-11-17 00:00 | Cellulitis | [facility] | + + + + | 2016-11-17 00:00 | Cellulitis | [facility] | + + + + | 2016-11-17 00:00 | Cellulitis | 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 | | + + + + | 2017-01-04 00:00 | Mononeuropathy of right | [facility]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 | | + + + + | 2017-01-04 00:00 | Mononeuropathy of right | [facility]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 | | + + + + | 2017-01-04 00:00 | Mononeuropathy of right | [facility]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 | | + + + + | 2017-01-04 00:00 | Mononeuropathy of right | [facility]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 | | + + + + | 2017-01-04 00:00 | Mononeuropathy of right | [facility]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 | | + + + + | 2017-01-04 00:00 | Mononeuropathy of right | [facility]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 | | + + + + | 2017-01-04 00:00 | Mononeuropathy of right | [facility]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 | | + + + + | 2017-01-04 00:00 | Mononeuropathy of right | [facility]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 | | + + + + | 2017-06-09 00:00 | Patient left without being | [facility] | | | seen | | + + + + | 2017-06-09 00:00 | Patient left without being | [facility] | | | seen | | + + + + | 2017-06-09 00:00 | Patient left without being | [facility] | | | seen | | + + + + | 2017-06-09 00:00 | Patient left without being | [facility] | | | seen | | + + + + | 2017-06-09 00:00 | Patient left without being | [facility] | | | seen | | + + + + | 2017-06-09 00:00 | Patient left without being | [facility] | | | seen | | + + + + | 2017-06-09 00:00 | Patient left without being | [facility] | | | seen | | + + + + | 2017-06-09 00:00 | Patient left without being | [facility] | | | seen | | + + + + | 2017-06-09 00:00 | Patient left without being | [facility] | | | seen | | + + + + | 2017-06-09 00:00 | Patient left without being | [facility] | | | seen | | + + + + | 2017-06-18 00:00 | Obstructive chronic | [facility] | | | bronchitis with | | | | exacerbation | | + + + + | 2017-06-18 00:00 | Obstructive chronic | [facility] | | | bronchitis with | | | | exacerbation | | + + + + | 2017-06-18 00:00 | Obstructive chronic | [facility] | | | bronchitis with | | | | exacerbation | | + + + + | 2017-06-18 00:00 | Obstructive chronic | [facility] | | | bronchitis with | | | | exacerbation | | + + + + | 2017-06-18 00:00 | Obstructive chronic | [facility] | | | bronchitis with | | | | exacerbation | | + + + + | 2017-06-18 00:00 | Obstructive chronic | [facility] | | | bronchitis with | | | | exacerbation | | + + + + | 2017-06-18 00:00 | Obstructive chronic | [facility] | | | bronchitis with | | | | exacerbation | | + + + + | 2017-06-18 00:00 | Obstructive chronic | [facility] | | | bronchitis with | | | | exacerbation | | + + + + | 2017-06-18 00:00 | Obstructive chronic | [facility] | | | bronchitis with | | | | exacerbation | | + + + + | 2017-06-18 00:00 | Obstructive chronic | [facility] | | | bronchitis with | | | | exacerbation | | + + + + | 2017-06-18 00:00 | Dyspnea on exertion | [facility] | + + + + | 2017-06-18 00:00 | Dyspnea on exertion | [facility] | + + + + | 2017-06-18 00:00 | Dyspnea on exertion | [facility] | + + + + | 2017-06-18 00:00 | Dyspnea on exertion | [facility] | + + + + | 2017-06-18 00:00 | Dyspnea on exertion | [facility] | + + + + | 2017-06-18 00:00 | Dyspnea on exertion | [facility] | + + + + | 2017-06-18 00:00 | Dyspnea on exertion | [facility] | + + + + | 2017-06-18 00:00 | Dyspnea on exertion | [facility] | + + + + | 2017-06-18 00:00 | Dyspnea on exertion | [facility] | + + + + | 2017-06-18 00:00 | Dyspnea on exertion | [facility] | + + + + | 2017-08-07 00:00 | Bronchitis | [facility] | + + + + | 2017-08-07 00:00 | Bronchitis | [facility] | + + + + | 2017-08-07 00:00 | Bronchitis | [facility] | + + + + | 2017-08-07 00:00 | Bronchitis | [facility] | + + + + | 2017-08-07 00:00 | Bronchitis | [facility] | + + + + | 2017-08-07 00:00 | Bronchitis | [facility] | + + + + | 2017-08-07 00:00 | Bronchitis | [facility] | + + + + | 2017-08-07 00:00 | Bronchitis | [facility] | + + + + | 2017-08-07 00:00 | Bronchitis | [facility] | + + + + | 2017-08-07 00:00 | Bronchitis | [facility] | + + + + | 2017-09-07 00:00 | Paronychia of finger of | [facility] | | | right hand | | + + + + | 2017-09-07 00:00 | Paronychia of finger of | [facility] | | | right hand | | + + + + | 2017-09-07 00:00 | Paronychia of finger of [facility] | | | right hand | | + + + + | 2017-09-07 00:00 | Paronychia of finger of [facility] | | | right hand | | + + + + | 2017-09-07 00:00 | Paronychia of finger of [facility] | | | right hand | | + + + + | 2017-09-07 00:00 | Paronychia of finger of [facility] | | | right hand | | + + + + | 2017-09-07 00:00 | Paronychia of finger of | [facility] | | | right hand | | + + + + | 2017-09-07 00:00 | Paronychia of finger of [facility] | | | right hand | | + + + + | 2017-09-07 00:00 | Paronychia of finger of [facility] | | | right hand | | + + + + | 2017-09-07 00:00 | Paronychia of finger of [facility] | | | right hand | | + + + + | 2017-09-28 00:00 | Upper respiratory tract | [facility] | | | infection | | + + + + | 2017-09-28 00:00 | Upper respiratory tract | [facility] | | | infection | | + + + + | 2017-09-28 00:00 | Upper respiratory tract | [facility] | | | infection | | + + + + | 2017-09-28 00:00 | Upper respiratory tract | [facility] | | | infection | | + + + + | 2017-09-28 00:00 | Upper respiratory tract | [facility] | | | infection | | + + + + | 2017-09-28 00:00 | Upper respiratory tract | [facility] | | | infection | | + + + + | 2017-09-28 00:00 | Upper respiratory tract | [facility] | | | infection | | + + + + | 2017-09-28 00:00 | Upper respiratory tract | [facility] | | | infection | | + + + + | 2017-09-28 00:00 | Upper respiratory tract | [facility] | | | infection | | + + + + | 2017-09-28 00:00 | Upper respiratory tract | [facility] | | | infection | | + + + + | 2019-01-27 00:00 | Cellulitis of lower | [facility] | | | extremity | | + + + + | 2019-01-27 00:00 | Cellulitis of lower | [facility] | | | extremity | | + + + + | 2019-01-27 00:00 | Cellulitis of lower | [facility] | | | extremity | | + + + + | 2019-01-27 00:00 | Cellulitis of lower | [facility] | | | extremity | | + + + + | 2019-01-27 00:00 | Cellulitis of lower | [facility] | | | extremity | | + + + + | 2019-01-27 00:00 | Cellulitis of lower | [facility] | | | extremity | | + + + + | 2019-01-27 00:00 | Cellulitis of lower | [facility] | | | extremity | | + + + + | 2019-01-27 00:00 | Cellulitis of lower | [facility] | | | extremity | | + + + + | 2019-01-27 00:00 | Cellulitis of lower | [facility] | | | extremity | | + + + + | 2019-01-27 00:00 | Cellulitis of lower | [facility] | | | extremity | | + + + + | 2020-01-23 00:00 | Gout | [facility] | + + + + | 2020-01-23 00:00 | Gout | [facility] | + + + + | 2020-01-23 00:00 | Gout | [facility] | + + + + | 2020-01-23 00:00 | Gout | [facility] | + + + + | 2020-01-23 00:00 | Gout | [facility] | + + + + | 2020-01-23 00:00 | Gout | [facility] | + + + + | 2020-01-23 00:00 | Gout | [facility] | + + + + | 2020-01-23 00:00 | Gout | [facility] | + + + + | 2020-01-23 00:00 | Gout | [facility] | + + + + | 2020-01-23 00:00 | Gout | [facility] | + + + + | 2020-05-09 00:00 | Rectal fissure | [facility] | + + + + | 2020-05-09 00:00 | Rectal fissure | [facility] | + + + + 2020-05-09 00:00 | Rectal fissure | [facility] | + + + + | 2020-05-09 00:00 | Rectal fissure | [facility] | + + + + | 2020-05-09 00:00 | Rectal fissure | [facility] | + + + + | 2020-05-09 00:00 | Rectal fissure | [facility] | + + + + | 2020-05-09 00:00 | Rectal fissure | [facility] | + + + + | 2020-05-09 00:00 | Rectal fissure | [facility] | + + + + | 2020-05-09 00:00 | Rectal fissure | [facility] | + + + + | 2020-05-09 00:00 | Rectal fissure | [facility] | + + + + | 2020-07-15 00:00 | Cannabis abuse | [facility] | + + + + | 2020-07-15 00:00 | Cannabis abuse | [facility] | + + + + 2020-07-15 00:00 | Cannabis abuse | [facility] | + + + + 2020-07-15 00:00 | Cannabis abuse | [facility] | + + + + | 2020-07-15 00:00 | Cannabis abuse | [facility] | + + + + | 2020-07-15 00:00 | Cannabis abuse | [facility] | + + + + | 2020-07-15 00:00 | Cannabis abuse | [facility] | + + + + 2020-07-15 00:00 | Cannabis abuse | [facility] | + + + + 2020-07-15 00:00 | Cannabis abuse | [facility] | + + + + | 2020-07-15 00:00 | Cannabis abuse | [facility] | + + + + | 2020-07-15 00:00 | Acute kidney injury | [facility] | + + + + | 2020-07-15 00:00 | Acute kidney injury | [facility] | + + + + 2020-07-15 00:00 | Acute kidney injury | [facility] | + + + + 2020-07-15 00:00 | Acute kidney injury | [facility] | + + + + | 2020-07-15 00:00 | Acute kidney injury | [facility] | + + + + | 2020-07-15 00:00 | Acute kidney injury | [facility] | + + + + | 2020-07-15 00:00 | Acute kidney injury | [facility] | + + + + 2020-07-15 00:00 | Acute kidney injury | [facility] | + + + + 2020-07-15 00:00 | Acute kidney injury | [facility] | + + + + | 2020-07-15 00:00 | Acute kidney injury | [facility] | + + + + | 2020-07-15 00:00 | Elevated transaminase | [facility] | | | measurement | | + + + + | 2020-07-15 00:00 | Elevated transaminase | [facility] | | | measurement | | + + + + | 2020-07-15 00:00 | Elevated transaminase | [facility] | | | measurement | | + + + + | 2020-07-15 00:00 | Elevated transaminase | [facility] | | | measurement | | + + + + | 2020-07-15 00:00 | Elevated transaminase | [facility] | | | measurement | | + + + + | 2020-07-15 00:00 | Elevated transaminase | [facility] | | | measurement | | + + + + | 2020-07-15 00:00 | Elevated transaminase | [facility] | | | measurement | | + + + + | 2020-07-15 00:00 | Elevated transaminase | [facility] | | | measurement | | + + + + | 2020-07-15 00:00 | Elevated transaminase | [facility] | | | measurement | | + + + + | 2020-07-15 00:00 | Elevated transaminase | [facility] | | | measurement | | + + + + | 2020-07-15 00:00 | Abrasion of left cornea | [facility] | + + + + | 2020-07-15 00:00 | Abrasion of left cornea | [facility] | + + + + | 2020-07-15 00:00 | Abrasion of left cornea | [facility] | + + + + | 2020-07-15 00:00 | Abrasion of left cornea | [facility] | + + + + | 2020-07-15 00:00 | Abrasion of left cornea | [facility] | + + + + | 2020-07-15 00:00 | Abrasion of left cornea | [facility] | + + + + 2020-07-15 00:00 | Abrasion of left cornea | [facility] | + + + + | 2020-07-15 00:00 | Abrasion of left cornea | [facility] | + + + + | 2020-07-15 00:00 | Abrasion of left cornea | [facility] | + + + + | 2020-07-15 00:00 | Abrasion of left cornea | 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 | + + + + | 2020-11-13 00:00 | Drug use | [facility] | + + + + | 2020-11-13 00:00 | Drug use | [facility] | + + + + | 2020-11-13 00:00 | Drug use | [facility] | + + + + | 2020-11-13 00:00 | Drug use | [facility] | + + + + | 2020-11-13 00:00 | Drug use | [facility] | + + + + | 2020-11-13 00:00 | Drug use | [facility] | + + + + | 2020-11-13 00:00 | Drug use | [facility] | + + + + | 2020-11-13 00:00 | Drug use | [facility] | + + + + | 2020-11-13 00:00 | Drug use | [facility] | + + + + | 2020-11-13 00:00 | Drug use | [facility] | + + + + | 2020-12-15 00:00 | Vertigo | [facility] | + + + + | 2020-12-15 00:00 | Vertigo | [facility] | + + + + | 2020-12-15 00:00 | Vertigo | [facility] | + + + + | 2020-12-15 00:00 | Vertigo | [facility] | + + + + | 2020-12-15 00:00 | Vertigo | [facility] | + + + + | 2020-12-15 00:00 | Vertigo | [facility] | + + + + | 2020-12-15 00:00 | Vertigo | [facility] | + + + + | 2020-12-15 00:00 | Vertigo | [facility] | + + + + | 2020-12-15 00:00 | Vertigo | [facility] | + + + + | 2020-12-15 00:00 | Vertigo | [facility] | + + + + | 2021-02-08 00:00 | Eczema of both hands | [facility] | + + + + | 2021-02-08 00:00 | Eczema of both hands | [facility] | + + + + | 2021-02-08 00:00 | Eczema of both hands | [facility] | + + + + | 2021-02-08 00:00 | Eczema of both hands | [facility] | + + + + | 2021-02-08 00:00 | Eczema of both hands | [facility] | + + + + | 2021-02-08 00:00 | Eczema of both hands | [facility] | + + + + | 2021-02-08 00:00 | Eczema of both hands | [facility] | + + + + | 2021-02-08 00:00 | Eczema of both hands | [facility] | + + + + | 2021-02-08 00:00 | Eczema of both hands | [facility] | + + + + | 2021-02-08 00:00 | Eczema of both hands | [facility] | + + + + | 2021-04-03 00:00 | Dehydration | [facility] | + + + + | 2021-04-03 00:00 | Dehydration | [facility] | + + + + | 2021-04-03 00:00 | Dehydration | [facility] | + + + + | 2021-04-03 00:00 | Dehydration | [facility] | + + + + | 2021-04-03 00:00 | Dehydration | [facility] | + + + + | 2021-04-03 00:00 | Dehydration | [facility] | + + + + | 2021-04-03 00:00 | Dehydration | [facility] | + + + + | 2021-04-03 00:00 | Dehydration | [facility] | + + + + | 2021-04-03 00:00 | Dehydration | [facility] | + + + + | 2021-04-03 00:00 | Dehydration | [facility] | + + + + | 2021-04-03 00:00 | Enteritis | [facility] | + + + + | 2021-04-03 00:00 | Enteritis | [facility] | + + + + | 2021-04-03 00:00 | Enteritis | [facility] | + + + + | 2021-04-03 00:00 | Enteritis | [facility] | + + + + | 2021-04-03 00:00 | Enteritis | [facility] | + + + + | 2021-04-03 00:00 | Enteritis | [facility] | + + + + | 2021-04-03 00:00 | Enteritis | [facility] | + + + + | 2021-04-03 00:00 | Enteritis | [facility] | + + + + | 2021-04-03 00:00 | Enteritis | [facility] | + + + + | 2021-04-03 00:00 | Enteritis | [facility] | + + + + | 2021 00:00 | Parasite not detected | [facility] | + + + + | 2021 00:00 | Parasite not detected | [facility] | + + + + | 2021 00:00 | Parasite not detected | [facility] | + + + + | 2021 00:00 | Parasite not detected | [facility] | + + + + | 2021 00:00 | Parasite not detected | [facility] | + + + + | 2021 00:00 | Parasite not detected | [facility] | + + + + | 2021 00:00 | Parasite not detected | [facility] | + + + + | 2021 00:00 | Parasite not detected | [facility] | + + + + | 2021 00:00 | Parasite not detected | [facility] | + + + + | 2021 00:00 | Parasite not detected | [facility] | + + + + | 2021 00:00 | Pain of hand | [facility] | + + + + | 2021 00:00 | Pain of hand | [facility] | + + + + | 2021 00:00 | Pain of hand | [facility] | + + + + | 2021 00:00 | Pain of hand | [facility] | + + + + | 2021 00:00 | Pain of hand | [facility] | + + + + | 2021 00:00 | Pain of hand | [facility] | + + + + | 2021 00:00 | Pain of hand | [facility] | + + + + | 2021 00:00 | Pain of hand | [facility] | + + + + | 2021 00:00 | Pain of hand | [facility] | + + + + | 2021 00:00 | Pain of hand | [facility] | + + + + | 2021-05-18 00:00 | Viral infection | [facility] | + + + + | 2021-05-18 00:00 | Viral infection | [facility] | + + + + | 2021-05-18 00:00 | Viral infection | [facility] | + + + + | 2021-05-18 00:00 | Viral infection | [facility] | + + + + | 2021-05-18 00:00 | Viral infection | [facility] | + + + + | 2021-05-18 00:00 | Viral infection | [facility] | + + + + | 2021-05-18 00:00 | Viral infection | [facility] | + + + + | 2021-05-18 00:00 | Viral infection | [facility] | + + + + | 2021-05-18 00:00 | Viral infection | [facility] | + + + + | 2021-05-18 00:00 | Viral infection | [facility] | + + + + | 2021-07-02 00:00 | Acute bronchitis | [facility] | + + + + | 2021-07-02 00:00 | Acute bronchitis | [facility] | + + + + | 2021-07-02 00:00 | Acute bronchitis | [facility] | + + + + | 2021-07-02 00:00 | Acute bronchitis | [facility] | + + + + | 2021-07-02 00:00 | Acute bronchitis | [facility] | + + + + | 2021-07-02 00:00 | Acute bronchitis | [facility] | + + + + | 2021-07-02 00:00 | Acute bronchitis | [facility] | + + + + | 2021-07-02 00:00 | Acute bronchitis | [facility] | + + + + | 2021-07-02 00:00 | Acute bronchitis | [facility] | + + + + | 2021-07-02 00:00 | Acute bronchitis | [facility] | + + + + | 2021-07-13 00:00 | Dizziness | [facility] | + + + + | 2021-07-13 00:00 | Dizziness | [facility] | + + + + | 2021-07-13 00:00 | Dizziness | [facility] | + + + + | 2021-07-13 00:00 | Dizziness | [facility] | + + + + | 2021-07-13 00:00 | Dizziness | [facility] | + + + + | 2021-07-13 00:00 | Dizziness | [facility] | + + + + | 2021-07-13 00:00 | Dizziness | [facility] | + + + + | 2021-07-13 00:00 | Dizziness | [facility] | + + + + | 2021-07-13 00:00 | Dizziness | [facility] | + + + + | 2021-07-13 00:00 | Dizziness | [facility] | + + + + | 2021-08-27 00:00 | Schizoaffective disorder | [facility] | + + + + | 2021-08-27 00:00 | Schizoaffective disorder | [facility] | + + + + | 2021-08-27 00:00 | Schizoaffective disorder | [facility] | + + + + | 2021-08-27 00:00 | Schizoaffective disorder | [facility] | + + + + | 2021-08-27 00:00 | Schizoaffective disorder | [facility] | + + + + | 2021-08-27 00:00 | Schizoaffective disorder | [facility] | + + + + | 2021-08-27 00:00 | Schizoaffective disorder | [facility] | + + + + | 2021-08-27 00:00 | Schizoaffective disorder | [facility] | + + + + | 2021-08-27 00:00 | Schizoaffective disorder | [facility] | + + + + | 2021-08-27 00:00 | Schizoaffective disorder | [facility] | + + + + | 2021-08-27 00:00 | Stomatitis | [facility] | + + + + | 2021-08-27 00:00 | Stomatitis | [facility] | + + + + | 2021-08-27 00:00 | Stomatitis | [facility] | + + + + | 2021-08-27 00:00 | Stomatitis | [facility] | + + + + | 2021-08-27 00:00 | Stomatitis | [facility] | + + + + | 2021-08-27 00:00 | Stomatitis | [facility] | + + + + | 2021-08-27 00:00 | Stomatitis | [facility] | + + + + | 2021-08-27 00:00 | Stomatitis | [facility] | + + + + | 2021-08-27 00:00 | Stomatitis | [facility] | + + + + | 2021-08-27 00:00 | Stomatitis | [facility] | + + + + | 2021-09-22 00:00 | Vomiting | [facility] | + + + + | 2021-09-22 00:00 | Vomiting | [facility] | + + + + | 2021-09-22 00:00 | Vomiting | [facility] | + + + + | 2021-09-22 00:00 | Vomiting | [facility] | + + + + | 2021-09-22 00:00 | Vomiting | [facility] | + + + + | 2021-09-22 00:00 | Vomiting | [facility] | + + + + | 2021-09-22 00:00 | Vomiting | [facility] | + + + + | 2021-09-22 00:00 | Vomiting | [facility] | + + + + | 2021-09-22 00:00 | Vomiting | [facility] | + + + + | 2021-09-22 00:00 | Vomiting | [facility] | + + + + | 2021-11-12 00:00 | Pneumonia | [facility] | + + + + | 2021-11-12 00:00 | Pneumonia | [facility] | + + + + | 2021-11-12 00:00 | Pneumonia | [facility] | + + + + | 2021-11-12 00:00 | Pneumonia | [facility] | + + + + | 2021-11-12 00:00 | Pneumonia | [facility] | + + + + | 2021-11-12 00:00 | Pneumonia | [facility] | + + + + | 2021-11-12 00:00 | Pneumonia | [facility] | + + + + | 2021-11-12 00:00 | Pneumonia | [facility] | + + + + | 2021-11-12 00:00 | Pneumonia | [facility] | + + + + | 2021-11-12 00:00 | Pneumonia | [facility] | + + + + | 2022-01-03 00:00 | Dental abscess | [facility] | + + + + | 2022-01-03 00:00 | Dental abscess | [facility] | + + + + | 2022-01-03 00:00 | Dental abscess | [facility] | + + + + | 2022-01-03 00:00 | Dental abscess | [facility] | + + + + | 2022-01-03 00:00 | Dental abscess | [facility] | + + + + | 2022-01-03 00:00 | Dental abscess | [facility] | + + + + | 2022-01-03 00:00 | Dental abscess | [facility] | + + + + | 2022-01-03 00:00 | Dental abscess | [facility] | + + + + | 2022-01-03 00:00 | Dental abscess | [facility] | + + + + | 2022-01-03 00:00 | Dental abscess | [facility] | + [...] | 2022-01-14 00:00 | Parasitic infestation | [facility] | + + + + | 2022-01-14 00:00 | Parasitic infestation | [facility] | + + + + | 2022-01-14 00:00 | Parasitic infestation | [facility] | + + + + | 2022-01-14 00:00 | Parasitic infestation | [facility] | + + + + | 2022-01-14 00:00 | Parasitic infestation | [facility] | + + + + | 2022-01-14 00:00 | Parasitic infestation | [facility] | + + + + | 2022-01-14 00:00 | Parasitic infestation | [facility] | + + + + | 2022-01-14 00:00 | Parasitic infestation | [facility] | + + + + | 2022-01-14 00:00 | Parasitic infestation | [facility] | + + + + | 2022-01-14 00:00 | Parasitic infestation | [facility] | + + + + | 2022-01-23 00:00 | Cellulitis of finger of | [facility] | | | left hand | | + + + + | 2022-01-23 00:00 | Cellulitis of finger of [facility] | | | left hand | | + + + + | 2022-01-23 00:00 | Cellulitis of finger of [facility] | | | left hand | | + + + + | 2022-01-23 00:00 | Cellulitis of finger of [facility] | | | left hand | | + + + + | 2022-01-23 00:00 | Cellulitis of finger of | [facility] | | | left hand | | + + + + | 2022-01-23 00:00 | Cellulitis of finger of | [facility] | | | left hand | | + + + + | 2022-01-23 00:00 | Cellulitis of finger of [facility] | | | left hand | | + + + + | 2022-01-23 00:00 | Cellulitis of finger of [facility] | | | left hand | | + + + + | 2022-01-23 00:00 | Cellulitis of finger of [facility] | | | left hand | | + + + + | 2022-01-23 00:00 | Cellulitis of finger of | [facility] | | | left hand [...] + | 2022-01-25 00:00 | Swelling | [facility] | + + + + | 2022-01-25 00:00 | Swelling | [facility] | + + + + | 2022-01-25 00:00 | Swelling | [facility] | + + + + | 2022-01-25 00:00 | Swelling | [facility] | + + + + | 2022-01-25 00:00 | Swelling | [facility] | + + + + | 2022-01-25 00:00 | Swelling | [facility] | + + + + | 2022-01-25 00:00 | Swelling | [facility] | + + + + | 2022-01-25 00:00 | Swelling | [facility] | + + + + | 2022-01-25 00:00 | Swelling | [facility] | + + + + | 2022-01-25 00:00 | Swelling | [facility] | + + + + | 2022-01-28 00:00 | Cellulitis of left ring | [facility] | | | finger | | + + + + | 2022-01-28 00:00 | Cellulitis of left ring | [facility] | | | finger | | + + + + | 2022-01-28 00:00 | Cellulitis of left ring | [facility] | | | finger | | + + + + | 2022-01-28 00:00 | Cellulitis of left ring | [facility] | | | finger | | + + + + | 2022-01-28 00:00 | Cellulitis of left ring | [facility] | | | finger | | + + + + | 2022-01-28 00:00 | Cellulitis of left ring | [facility] | | | finger | | + + + + | 2022-01-28 00:00 | Cellulitis of left ring | [facility] | | | finger | | + + + + | 2022-01-28 00:00 | Cellulitis of left ring | [facility] | | | finger | | + + + + | 2022-01-28 00:00 | Cellulitis of left ring | [facility] | | | finger | | + + + + | 2022-01-28 00:00 | Cellulitis of left ring | [facility] | | | finger | | + + + + | 2022-02-10 00:00 | Injury of extremity | [facility] | + + + + | 2022-02-10 00:00 | Injury of extremity | [facility] | + + + + | 2022-02-10 00:00 | Injury of extremity | [facility] | + + + + | 2022-02-10 00:00 | Injury of extremity | [facility] | + + + + | 2022-02-10 00:00 | Injury of extremity | [facility] | + + + + | 2022-02-10 00:00 | Injury of extremity | [facility] | + + + + | 2022-02-10 00:00 | Injury of extremity | [facility] | + + + + | 2022-02-10 00:00 | Injury of extremity | [facility] | + + + + | 2022-02-10 00:00 | Injury of extremity | [facility] | + + + + | 2022-03-10 00:00 | Cellulitis of thumb | [facility] | + + + + | 2022-03-10 00:00 | Cellulitis of thumb | [facility] | + + + + | 2022-03-10 00:00 | Cellulitis of thumb | [facility] | + + + + | 2022-03-10 00:00 | Cellulitis of thumb | [facility] | + + + + | 2022-03-10 00:00 | Cellulitis of thumb | [facility] | + + + + | 2022-03-10 00:00 | Cellulitis of thumb | [facility] | + + + + | 2022-03-10 00:00 | Cellulitis of thumb | [facility] | + + + + | 2022-03-10 00:00 | Cellulitis of thumb | [facility] | + + + + | 2022-03-10 00:00 | Cellulitis of thumb | [facility] | + + + + | 2022-03-10 00:00 | Formication | [facility] | + + + + | 2022-03-10 00:00 | Formication | [facility] | + + + + | 2022-03-10 00:00 | Formication | [facility] | + + + + | 2022-03-10 00:00 | Formication | [facility] | + + + + | 2022-03-10 00:00 | Formication | [facility] | + + + + | 2022-03-10 00:00 | Formication | [facility] | + + + + | 2022-03-10 00:00 | Formication | [facility] | + + + + | 2022-03-10 00:00 | Formication | [facility] | + + + + | 2022-03-10 00:00 | Formication | [facility] | + + + + | 2022-03-14 00:00 | 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[facility] | + + + + | 2022-03-14 00:00 | 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[facility] | + + + + | 2022-03-14 00:00 | 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[facility] | + + + + | 2022-03-14 00:00 | 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[facility] | + + + + | 2022-03-14 00:00 | 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[facility] | + + + + | 2022-03-14 00:00 | 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[facility] | + + + + | 2022-03-14 00:00 | 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[facility] | + + + + | 2022-03-14 00:00 | 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[facility] | + + + + | 2022-03-22 00:00 | Swelling of hand | [facility] | + + + + | 2022-03-22 00:00 | Swelling of hand | [facility] | + + + + | 2022-03-22 00:00 | Swelling of hand | [facility] | + + + + | 2022-03-22 00:00 | Swelling of hand | [facility] | + + + + | 2022-03-22 00:00 | Swelling of hand | [facility] | + + + + | 2022-03-22 00:00 | Swelling of hand | [facility] | + + + + | 2022-03-22 00:00 | Swelling of hand | [facility] | + + + + | 2022-03-22 00:00 | Swelling of hand | [facility] | + + + + | [...] | 2022-11-23 00:00 | Dental caries | [facility] | + + + + | 2022-11-23 00:00 | Dental caries | [facility] | + + + + | 2022-11-23 00:00 | Dental caries | [facility] | + + + + | 2022-11-23 00:00 | Dental caries | [facility] | + + + + | 2022-11-23 00:00 | Dental caries | [facility] | + + + + | 2022-11-23 00:00 | Dental caries | [facility] | + + + + | 2022-11-23 00:00 | Dental caries | [facility] | + + + + | 2022-11-23 00:00 | Dental caries | [facility] | + + + + | 2022-11-23 00:00 | Abscess of face | [facility] | + + + + | 2022-11-23 00:00 | Abscess of face | [facility] | + + + + | 2022-11-23 00:00 | Abscess of face | [facility] | + + + + | 2022-11-23 00:00 | Abscess of face | [facility] | + + + + | 2022-11-23 00:00 | Abscess of face | [facility] | + + + + | 2022-11-23 00:00 | Abscess of face | [facility] | + + + + | 2022-11-23 00:00 | Abscess of face | [facility] | + + + + | 2022-11-23 00:00 | Abscess of face | 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 | | | etiology | | + + + + | 2022-12-16 00:00 | Dizziness of unknown | [facility] | | | etiology | | + + + + | 2022-12-16 00:00 | Dizziness of unknown | [facility] | | | etiology | | + + + + | 2022-12-16 00:00 | Dizziness of unknown | [facility] | | | etiology | | + + + + | 2022-12-16 00:00 | Dizziness of unknown | [facility] | | | etiology | | + + + + | 2022-12-16 00:00 | Dizziness of unknown | [facility] | | | etiology | | + + + + | 2022-12-16 00:00 | Dizziness of unknown | [facility] | | | etiology | | + + + + | 2022-12-16 00:00 | Dizziness of unknown | [facility] | | | etiology | [...] + + | 2022-12-16 20:45 | OTHER HALFWAY (CURRENT) | [facility] | | | DRUG [...] + + | 2022-12-21 12:34 | OTHER HALFWAY (CURRENT) | [facility] | | | DRUG THERAPY | | + + + + | 2023-01-01 00:00 | Infestation by Sarcoptes | [facility] | | | scabiei | | + + + + | 2023-01-01 00:00 | Infestation by Sarcoptes | [facility] | | | scabiei | | + + + + | 2023-01-01 00:00 | Infestation by Sarcoptes | [facility] | | | scabiei | | + + + + | 2023-01-01 00:00 | Infestation by Sarcoptes | [facility] | | | scabiei | | + + + + | 2023-01-01 00:00 | Infestation by Sarcoptes | [facility] | | | scabiei | | + + + + | 2023-01-01 00:00 | Hypothyroidism | [facility] | + + + + | 2023-01-01 00:00 | Hypothyroidism | [facility] | + + + + | 2023-01-01 00:00 | Hypothyroidism | [facility] | + + + + | 2023-01-01 00:00 | Hypothyroidism | [facility] | + + + + | 2023-01-01 00:00 | Hypothyroidism | [facility] | + + + + | 2023-01-01 00:00 | Hypertension | [facility] | + + + + | 2023-01-01 00:00 | Hypertension | [facility] | + + + + | 2023-01-01 00:00 | Hypertension | [facility] | + + + + | 2023-01-01 00:00 | Hypertension | [facility] | + + + + | 2023-01-01 00:00 | Hypertension | [facility] | + [...] + + | 2023-01-01 18:29 | OTHER HAND OR MACHINE PASTER (CURRENT) | [facility] | | | DRUG [...] + + | 2023-01-10 07:21 | OTHER HALFWAY (CURRENT) | [facility] | | | DRUG THERAPY | | + + + + | 2023-01-27 00:00 | Chronic dermatitis of | [facility] | | | hands | | + + + + | 2023-01-27 00:00 | Chronic dermatitis of | [facility] | | | hands | | + + + + | 2023-01-27 00:00 | Chronic dermatitis of | [facility] | | | hands | | + + + + | 2023-01-27 00:00 | Chronic dermatitis of | [facility] | | | hands | | + + + + | 2023-01-27 00:00 | Chronic dermatitis of | [facility] | | | hands | [...] + + | 2023-01-27 09:48 | OTHER HALFWAY (CURRENT) | [facility] | | | DRUG THERAPY | | + + + + | 2023-01-29 00:00 | Eczema | [facility] | + + + + | 2023-01-29 00:00 | Eczema | [facility] | + + + + | 2023-01-29 00:00 | Eczema | [facility] | + + + + | 2023-01-29 00:00 | Eczema | [facility] | + [...] + + | 2023-01-29 00:24 | OTHER HAND OR MACHINE PASTER (CURRENT) | [facility] | | | DRUG THERAPY | | + + + + | 2023-02-14 00:00 | Weakness | [facility] | + + + + | 2023-02-14 00:00 | Weakness | [facility] | + + + + | 2023-02-14 00:00 | Weakness | [facility] | + + + + | 2023-02-15 00:00 | Anxiety | [facility] | + + + + | 2023-02-15 00:00 | Anxiety | [facility] | + + + + | 2023-02-15 00:00 | Anxiety | [facility] | + + + + | 2023-02-16 00:00 | Dry skin | [facility] | + + + + | 2023-02-16 00:00 | Dry skin | [facility] | + + + + | 2023-02-16 00:00 | Dry skin | [facility] | + [...] + + | 2023-02-16 06:39 | OTHER HAND OR MACHINE PASTER (CURRENT) | [facility] | | | DRUG [...] (missing) | | (unavailable | 01:56 | Tia | | | | | [...] (missing) | | (unavailable | 05:36 | aTi | | | | | [...] (missing) | | (unavailable | 02:00 | Tia | | | | | [...] (missing) | | (unavailable | 21:51:07 | aTi | | | | | [...]
[~2023-03-13 10:48] MED LIST changes: +TRIAMCINOLONE A15 GM TOP
--- OUTSIDE RECORDS SUMMARY | 2023-03-13 10:53 | XMS ---
PreManage Notification: VALENTINO SORTO Security Enrollment Advisor Events 6 event(s) in the past 18 months Most recent security events: Elopement at [facility] 02/16/2023 22:21 - Patient eloped before treatment completed. - Patient with suicidal and/or homicidal ideations eloped. - Patient eloped with IV in place. Details: Patient LWOBS Elopement at [facility] 11/21/2022 13:52 - Patient eloped before treatment completed. - Patient with suicidal and/or homicidal ideations eloped. - Patient eloped with IV in place. Details: Patient LWBS. Elopement at [facility] 10/31/2022 17:09 - Patient eloped before treatment completed. - Patient with suicidal and/or homicidal ideations eloped. - Patient eloped with IV in place. Details: Patient LWBS CRITERIA MET - 6 ED Visits in 6 Months - Group Notification - [facility] - 2 Visits in 30 Days - [facility] - Has Care Guidelines CARE PROVIDERS -Ulysses- Dentist: Kinesiology Internship [facility] PHONE: [phone] JAMILA NORIEGA [facility] 01/24/2020-[facility] PHONE: [phone] [place] has no Care Guidelines for this patient. Care History Medical/Surgical 03/11/2022 [facility] ALERT KATHLEEN HAS BEEN TRYING TO CONTACT PATIENT. IF PATIENT IS SEEN IN THE ED PLEASE CONTACT KATHLEEN CRISIS LINE [phone]. KATHLEEN HAS A PHONE TO PROVIDE TO THE PATIENT. PLEASE LET PATIENT KNOW. KATHLEEN IS TRYING TO HELP WITH HOUSING RESOURCES AND WOULD LIKE TO FURTHER ASSIST. 09/02/2021 [facility] - MULTIPLE ATTEMPTS TO CONTACT PATIENT - - PATIENT HAS DECLINED COMMUNITY COUNSELING [employer] HELP- MULTIPLE ATTEMPTS HAVE BEEN MADE AND PATIENT DECLINES EVERY TIME. - PATIENT HAS DECLINED HELP FROM KATHLEEN - PATIENT IS ABLE TO GO TO THE DAY CENTER THAT KATHLEEN PROVIDES. 11/27/2020 [facility] - KATHLEEN HELPED PATIENT WITH TREATMENT PLACEMENT AT [facility] - PATIENT WAS AT TREATMENT FACILITY AND LEFT AMA BY FOOT - PATIENT IS BACK IN THE AREA AND KATHLEEN HAS NO WAY OF CONTACTING PATIENT - IF PATIENT IS SEEN IN THE ED AGAIN-PLEASE ASK IF PATIENT WOULD BE OKAY WITH [facility] BEING CONTACTED. E.D. VISIT COUNT (12 MO.) 19 [facility] [place] [facility] TOTAL 22 NOTE: Visits indicate total known visits. ED/UCC VISIT TRACKING (12 MO.) 03/13/2023 10:48 [facility] [place] TYPE: Emergency COMPLAINT: - WEAKNESS 02/26/2023 19:01 [facility] [place] TYPE: Emergency COMPLAINT: - SKIN PROBLEM DIAGNOSES: - Delusional disorders - Essential (primary) hypertension - Nicotine dependence, unspecified, uncomplicated - Type 2 diabetes mellitus without complications 02/16/2023 22:[address] [facility] [facility] [place] TYPE: Emergency COMPLAINT: - FLANK PAIN 02/16/2023 06:[address] [facility] [facility] [place] [place] TYPE: Emergency COMPLAINT: - HAND PAIN DIAGNOSES: - Anxiety disorder, unspecified - Essential (primary) hypertension - Nicotine dependence, unspecified, uncomplicated - Other exterminator termite (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 - Schizoaffective disorder, unspecified - Type 2 diabetes mellitus without complications - Xerosis cutis - Xerosis cutis 02/15/2023 00:29 [facility] [place] TYPE: Emergency COMPLAINT: - HEAT STRESSED 02/14/2023 14:30 [facility] [place] TYPE: Emergency COMPLAINT: - POSS HEAT STROKE 01/29/2023 00:24 [facility] [place] TYPE: Emergency COMPLAINT: - SKIN PROBLEM DIAGNOSES: - Anxiety disorder, unspecified - Dermatitis, unspecified - Essential (primary) hypertension - Nicotine dependence, unspecified, uncomplicated - Other senior care (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 - Pain in left hand - Type 2 diabetes mellitus without complications 01/27/2023 09:[address] [facility] [address] [facility] [place] TYPE: Emergency COMPLAINT: - MEDICAL CLEARANCE DIAGNOSES: - Delusional disorders - Dermatitis, unspecified - Disorder of thyroid, unspecified - Essential (primary) hypertension - Nicotine dependence, unspecified, uncomplicated - Other exterminator termite (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 - Type 2 diabetes mellitus without complications 01/14/2023 10:54 [facility] [place] TYPE: Emergency DIAGNOSES: - Changes in skin texture - hands burning - Wound Check 01/13/2023 18:46 [facility] [place] TYPE: Emergency DIAGNOSES: - Cellulitis [...] - Nicotine dependence, unspecified, uncomplicated - Other exterminator termite (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 - Other stimulant abuse, uncomplicated - Pain in left hand - Type 2 diabetes mellitus without complications 01/01/2023 18:29 [facility] [place] TYPE: Emergency COMPLAINT: - BUG BITES DIAGNOSES: - Essential (primary) hypertension - Nicotine dependence, unspecified, uncomplicated - Other senior care (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 - Other stimulant abuse, in remission - Scabies - Type 2 diabetes mellitus without complications 12/21/2022 12:34 [facility] [place] TYPE: Emergency COMPLAINT: - DIZZINESS DIAGNOSES: - Essential (primary) hypertension - Nicotine dependence, unspecified, uncomplicated - Other exterminator termite (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 - Other stimulant abuse, uncomplicated - Type 2 diabetes mellitus without complications - Weakness 12/16/2022 20:45 [facility] [place] TYPE: Emergency COMPLAINT: - DIZZINESS DIAGNOSES: - Dizziness and giddiness - Essential (primary) hypertension - Nicotine dependence, unspecified, uncomplicated - Other exterminator termite (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 - Type 2 diabetes mellitus without complications 12/09/2022 18:55 [facility] Steve [facility] TYPE: Emergency DIAGNOSES: - Cellulitis of right upper limb - Arm Swelling - Rt arm pain/swelling 11/23/2022 10:03 [facility] [place] TYPE: Emergency COMPLAINT: - THINKS HE HAS INFECTION DIAGNOSES: - Dental caries, unspecified - Diseases of lips - Essential (primary) hypertension - Nicotine dependence, unspecified, uncomplicated - Other senior care (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 - Type 2 diabetes mellitus without complications 11/22/2022 02:54 [facility] [place] TYPE: Emergency COMPLAINT: - SKIN PROBLEM DIAGNOSES: - Disorder of the skin and subcutaneous tissue, unspecified - Essential (primary) hypertension - Nicotine dependence, unspecified, uncomplicated - Periapical abscess without sinus - Type 2 diabetes mellitus without complications 11/21/2022 13:[address] [facility] [address] [facility] [place] TYPE: Emergency COMPLAINT: - EAR PAIN 10/31/2022 17:09 [facility] [place] TYPE: Emergency COMPLAINT: - HAND PAIN 10/13/2022 11:40 [facility] [place] TYPE: Emergency COMPLAINT: - MOUTH, HANDS, FEET PAIN, HEADACHE DIAGNOSES: - Essential (primary) hypertension - Localized edema - Nicotine dependence, unspecified, uncomplicated - Type 2 diabetes mellitus without complications Plus 2 More Visits INPATIENT VISIT TRACKING (12 MO.) 12/09/2022 18:55 [facility] Steve [facility] TYPE: Medical Surgical DIAGNOSES: - Cellulitis of right upper limb - Cellulitis of right upper limb [email or web address]
[2023-03-13 11:03] LABS: BASOPHILS 0.7 % (0-2); EOSINOPHILS 2.7 % (0-6); HEMATOCRIT 36.9 % (35.0-50.0); LYMPHOCYTES 14.5 % (24-44); MCH 29.6 (27-36); MCHC 32.5 g/dl (30-36); MCV 91.3 fl (81-99); MONOCYTES 10.3 % (0-12); NEUTROPHILS 71.8 % (39-80); PLATELET COUNT 223 K/uL (140-440); RBC 4.05 M/ul (4.3-5.7); RDW 15.7 (10.5-15.0)
[2023-03-13 11:14] LABS: BUN/CREATININE RATIO 23.1 (6.0-28.6); CALCIUM 8.6 mg/dL (8.5-10.1); CREATININE, SERUM 2.51 mg/dL (0.70-1.30)
[2023-03-13 13:30] LABS: ANION GAP 11.6 (7-21); BUN/CREATININE RATIO 28.81 (6.0-28.6); CALCIUM 7.9 mg/dL (8.5-10.1); CREATININE, SERUM 1.77 mg/dL (0.70-1.30); POTASSIUM 3.6 mmol/L (3.5-5.1)
[2023-03-13 14:00] VITALS: BP 146/95
[2023-03-14] MEDS ORDERED: TRIAMCINOLONE A15 GM TOP (10:28)
== END 2023-03-13 14:00 | disposition home or self-care (01) ==
LOC: ED 10:48
PROVIDERS: Student in an Organized Health Care Education/Training Program
DX: E86.0 Dehydration (principal); I10 Essential (primary) hypertension; E11.9 Type 2 diabetes mellitus without complications; F17.200 Nicotine dependence, unspecified, uncomplicated; Z59.02 Unsheltered homelessness
CPT/HCPCS: 36415; 80048; 82553; 85025; 96360; 99284-25; J7030

== ENCOUNTER 2023-04-26 02:57 | Emergency (ER) | payer MEDICARE, OTHER ==
[~2023-04-26] VITALS: Ht 162.6 cm; Wt 49.0 kg
--- OUTSIDE RECORDS SUMMARY | ~2023-04-26 | XMS | Continuity of Care Document ---
Demographics + + + | Address | [address] | | | [place] [address] | + + + | Preferred Language | Unknown | + + + | Marital Status | Never | + + + | Presybeterian Affiliation | Unknown | + + + | Race | White | + + + | Ethnic Group | Not or | + + + Author + + + | Author | [facility] | + + + | Organization | [facility] | + + + | Address | [address] | | | [place] [address] | + + + | Phone | | + + + Care Team Providers + + + + | Care Microfilm Camera Operator Name | Role | Phone | + + + + Unavailable | Unavailable | + + + + Allergies No information. Encounters No information. Functional Status No information. Immunizations No information. Medications No information. Problems + + + + | date | description | facility | + + + + | 2023-01-27 [...] + + | 2023-01-27 09:48 | OTHER POLE CLIMBER (CURRENT) | [facility] | | | DRUG [...] + + | 2023-01-29 00:24 | OTHER ALF (CURRENT) | [facility] | [...] + + | 2023-02-16 06:39 | OTHER ALF (CURRENT) | [facility] | [...] + + | 2023-03-30 06:30 | OTHER ALF (CURRENT) | [facility] | [...] [facility] | | | FINDINGS OF BLOOD RECORDS COORDINATOR | | + + + + Procedures No information. Results/Labs No information. Social History +--------+ + + | date | description | facility | +--------+ + + Vital Signs No information."
[~2023-04-26 02:57] MED LIST changes: +LASIX20 MG PO
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
[2023-04-26 03:24] LABS: BASOPHILS 0.5 % (0-2); EOSINOPHILS 3.2 % (0-6); HEMATOCRIT 34.1 % (35.0-50.0); HEMOGLOBIN 11.2 g/dL (12.0-18.0); LYMPHOCYTES 15.7 % (24-44); MCH 30.9 (27-36); MCHC 32.8 g/dl (30-36); MCV 94.3 fl (81-99); NEUTROPHILS 70.6 % (39-80); PLATELET COUNT 218 K/uL (140-440); RBC 3.62 M/ul (4.3-5.7); RDW 16.1 (10.5-15.0)
[2023-04-26 03:34] LABS: ALBUMIN 2.9 g/dL (3.4-5.0); ALBUMIN/GLOBULIN RATIO 0.88 (1.1-2.4); BILIRUBIN, TOTAL 0.5 ng/dL (0.2-1.0); BUN/CREATININE RATIO 20.98 (6.0-28.6); CALCIUM 8.4 mg/dL (8.5-10.1); CREATININE, SERUM 0.81 mg/dL (0.70-1.30); PROTEIN, TOTAL 6.2 g/dL (6.4-8.2)
[2023-04-26 04:47] VITALS: BP 175/101
== END 2023-04-26 04:47 | disposition home or self-care (01) ==
LOC: ED 02:57
PROVIDERS: Family Medicine
DX: R53.1 Weakness (principal); F15.10 Other stimulant abuse, uncomplicated; Z71.1 Person with feared health complaint in whom no diagnosis is made; I10 Essential (primary) hypertension; E11.9 Type 2 diabetes mellitus without complications; F17.200 Nicotine dependence, unspecified, uncomplicated; Z79.899 Other long term (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
CPT/HCPCS: 36415; 80053; 85025; 99285

== ENCOUNTER 2023-04-29 02:08 | Emergency (ER) | payer MEDICARE, OTHER ==
[~2023-04-29] VITALS: Ht 162.6 cm; Wt 53.0 kg
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
[2023-04-29 03:00] VITALS: BP 188/95
== END 2023-04-29 03:00 | disposition home or self-care (01) ==
LOC: ED 02:08
DX: F15.20 Other stimulant dependence, uncomplicated (principal); I10 Essential (primary) hypertension; E11.9 Type 2 diabetes mellitus without complications; F17.200 Nicotine dependence, unspecified, uncomplicated
CPT/HCPCS: 99283

== ENCOUNTER 2023-05-03 15:18 | Emergency (ER) | payer MEDICARE, OTHER ==
[~2023-05-03] VITALS: Ht 162.6 cm; Wt 51.6 kg
--- OUTSIDE RECORDS SUMMARY | 2023-05-03 15:27 | XMS ---
PreManage Notification: VALENTINO SORTO Security Global Regulatory Lead Events 7 event(s) in the past 18 months Most recent security events: Elopement at [facility] 03/18/2023 17:26 - Patient eloped before treatment completed. - Patient with suicidal and/or homicidal ideations eloped. - Patient eloped with IV in place. Details: Patient LWBS Elopement at [facility] 02/16/2023 22:21 - Patient eloped before treatment completed. - Patient with suicidal and/or homicidal ideations eloped. - Patient eloped with IV in place. Details: Patient LWOBS Elopement at [facility] 11/21/2022 13:52 - Patient eloped before treatment completed. - Patient with suicidal and/or homicidal ideations eloped. - Patient eloped with IV in place. Details: Patient LWBS. CRITERIA MET - 6 ED Visits in 6 Months - Group Notification - [facility] - 2 Visits in 30 Days - [facility] - Has Care Guidelines CARE PROVIDERS JAMILA NORIEGA [facility] 01/24/2020-[facility] PHONE: [phone] -[place]- Dentist: Consumer Loan Manager [facility] PHONE: [phone] [place] has no Care Guidelines for this patient. Care History Medical/Surgical 03/11/2022 [facility] ALERT KATHLEEN HAS BEEN TRYING TO CONTACT PATIENT. IF PATIENT IS SEEN IN THE ED PLEASE CONTACT KATHLEEN CRISIS LINE [phone]. KATHLEEN HAS A PHONE TO PROVIDE TO THE PATIENT. PLEASE LET PATIENT KNOW. KATHLEEN IS TRYING TO HELP WITH HOUSING RESOURCES AND WOULD LIKE TO FURTHER ASSIST. 09/02/2021 [facility] - MULTIPLE ATTEMPTS TO CONTACT PATIENT - - PATIENT HAS DECLINED COMMUNITY COUNSELING SOLUTIONS HELP- MULTIPLE ATTEMPTS HAVE BEEN MADE AND PATIENT DECLINES EVERY TIME. - PATIENT HAS DECLINED HELP FROM KATHLEEN - PATIENT IS ABLE TO GO TO THE DAY CENTER THAT KATHLEEN PROVIDES. 11/27/2020 [facility] - KATHLEEN HELPED PATIENT WITH TREATMENT [...] CONTACTED. E.D. VISIT COUNT (12 MO.) LASHAY Bolanosony Jeremías Yoo [facility] TOTAL 28 NOTE: Visits indicate total known visits. ED/UCC VISIT TRACKING (12 MO.) 05/03/2023 15:19 [facility] [place] TYPE: Emergency COMPLAINT: - SKIN PROBLEMS 04/29/2023 15:29 [facility] Emergency DIAGNOSES: - Cellulitis of right upper limb - Elevated blood-pressure reading, without diagnosis of hypertension - Other stimulant abuse, uncomplicated - poss staph? - Wound Infection (Complicated) 04/29/2023 02:08 LASHAY Shook [place] TYPE: Emergency COMPLAINT: - SOB DIAGNOSES: - Essential (primary) hypertension - Nicotine dependence, unspecified, uncomplicated - Other stimulant dependence, uncomplicated - Shortness of breath - Type 2 diabetes mellitus without complications 04/26/2023 02:57 [facility] [place] TYPE: Emergency COMPLAINT: - WEAKNESS DIAGNOSES: - Essential (primary) hypertension - Nicotine dependence, unspecified, uncomplicated - Other terminal operations manager (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 - Other stimulant abuse, [...] - Essential (primary) hypertension - Other terminal operations manager (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 - Pain in left [...] without complications - Weakness 03/13/2023 10:48 LASHAY Bol[place]hoi HolderT[place] TYPE: Emergency COMPLAINT: - WEAKNESS DIAGNOSES: [...] - Nicotine dependence, unspecified, uncomplicated - Other usp (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 - Schizoaffective disorder, unspecified - Type 2 diabetes mellitus without complications - Xerosis cutis - Xerosis cutis 02/15/2023 00:[address] [facility] [address] [facility] [place] TYPE: Emergency COMPLAINT: - HEAT STRESSED 02/14/2023 14:[address] [facility] [address] [facility] [place] TYPE: Emergency COMPLAINT: - POSS HEAT STROKE 01/29/2023 00:24 [facility] [address] [facility] [place] TYPE: Emergency COMPLAINT: - SKIN PROBLEM DIAGNOSES: - Anxiety disorder, unspecified - Dermatitis, unspecified - Essential (primary) hypertension - Nicotine dependence, unspecified, uncomplicated - Other usp (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 - Pain in left hand - Type 2 diabetes mellitus without complications 01/27/2023 09:48 [facility] [address] [place] TYPE: Emergency COMPLAINT: - MEDICAL CLEARANCE DIAGNOSES: - Delusional disorders - Dermatitis, unspecified - Disorder of thyroid, unspecified - Essential (primary) hypertension - Nicotine dependence, unspecified, uncomplicated - Other usp (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 - Type 2 diabetes mellitus without complications 01/14/2023 10:54 [facility] Johny ROSARIO ([place]) TYPE: Emergency DIAGNOSES: - Changes in skin texture - hands burning - Wound Check 01/13/2023 18:46 [facility] Johny ROSARIO ([place]) TYPE: Emergency DIAGNOSES: - Cellulitis of right upper limb - Rash and other nonspecific skin eruption - Scabies - hand pain - Headache (Adult - New Onset Or New Symptoms) - Nausea - Scabies (Possible) 01/10/2023 07:21 LASHAY Shook [place] TYPE: Emergency COMPLAINT: - HAND PAIN/SWELLING DIAGNOSES: - Changes in skin texture - Essential (primary) hypertension - Nicotine dependence, unspecified, uncomplicated - Other terminal operations manager (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 - Other stimulant abuse, uncomplicated - Pain in left hand - Type 2 diabetes mellitus without complications 01/01/2023 18:29 [facility] [place] TYPE: Emergency COMPLAINT: - BUG BITES DIAGNOSES: - Essential (primary) hypertension - Nicotine dependence, unspecified, uncomplicated - Other terminal operations manager (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 - Other stimulant abuse, in remission - Scabies - Type 2 diabetes mellitus without complications Plus 8 More Visits INPATIENT VISIT TRACKING (12 MO.) 12/09/2022 18:55 [facility] Radha ROSARIO (Johny Mcclain) TYPE: Medical Surgical DIAGNOSES: - Cellulitis of right upper limb - Cellulitis of right upper limb [email or web address]
[2023-05-03] MEDS ORDERED: DOXYCYCLINE HY100 MG PO (16:38)
[2023-05-03] MEDS ORDERED: CEFDINIR300 MG PO (16:38)
[2023-05-03 17:29] LABS: BASOPHILS 0.8 % (0-2); EOSINOPHILS 3.8 % (0-6); HEMATOCRIT 34.9 % (35.0-50.0); HEMOGLOBIN 11.6 g/dL (12.0-18.0); MCH 30.9 (27-36); MCHC 33.3 g/dl (30-36); MCV 92.8 fl (81-99); MONOCYTES 9.7 % (0-12); NEUTROPHILS 63.7 % (39-80); PLATELET COUNT 285 K/uL (140-440); RBC 3.76 M/ul (4.3-5.7); RDW 15.3 (10.5-15.0)
[2023-05-03 17:48] LABS: ALBUMIN 2.8 g/dL (3.4-5.0); ALBUMIN/GLOBULIN RATIO 0.78 (1.1-2.4); BILIRUBIN, TOTAL 0.3 ng/dL (0.2-1.0); BUN/CREATININE RATIO 25.25 (6.0-28.6); CALCIUM 8.5 mg/dL (8.5-10.1); CREATININE, SERUM 0.99 mg/dL (0.70-1.30); PROTEIN, TOTAL 6.4 g/dL (6.4-8.2)
[2023-05-03 18:11] LABS: BILIRUBIN, URINE NEGATIVE (negative); BLOOD/HGB, URINE NEGATIVE (Negative); KETONE, URINE NEGATIVE (Negative); LEUK ESTERASE, URINE NEGATIVE (negative); NITRITE, URINE NEGATIVE (negative)
[2023-05-03 18:17] LABS: AMPHETAMINES, UR POSITIVE (NEGATIVE); BARBITURATES, UR NEGATIVE (NEGATIVE); BENZODIAZEPINES, UR NEGATIVE (NEGATIVE); BUPRENORPHINE,UR NEGATIVE (NEGATIVE); COCAINE, UR NEGATIVE (NEGATIVE); MARIJUANA (THC), UR NEGATIVE (NEGATIVE); MDMA, UR NEGATIVE (NEGATIVE); METHADONE, UR NEGATIVE (NEGATIVE); METHAMPHETAMINE, UR POSITIVE (NEGATIVE); OPIATES, UR NEGATIVE (NEGATIVE); OXYCODONE, UR NEGATIVE (NEGATIVE); PHENCYCLIDINE, UR NEGATIVE (NEGATIVE); TRICYCLIC ANTIDEPRESSANT, UR NEGATIVE (NEGATIVE)
[2023-05-03 18:58] VITALS: BP 182/104
== END 2023-05-03 18:58 | disposition home or self-care (01) ==
LOC: ED 15:18
PROVIDERS: Emergency Medicine
DX: L57.8 Other skin changes due to chronic exposure to nonionizing radiation (principal); F17.200 Nicotine dependence, unspecified, uncomplicated; I10 Essential (primary) hypertension; Z79.899 Other long term (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; W90.8XXA Exposure to other nonionizing radiation, initial encounter
CPT/HCPCS: 36415; 80053; 81003; 85025; 99283; J7030

== ENCOUNTER 2023-06-06 10:19 | Emergency (ER) | payer MEDICARE, OTHER ==
[~2023-06-06] VITALS: Ht 162.6 cm; Wt 52.0 kg
[~2023-06-06 10:19] MED LIST changes: +CEFDINIR300 MG PO
[2023-06-06 10:59] VITALS: BP 166/94
--- OUTSIDE RECORDS SUMMARY | 2023-06-06 11:26 | XMS ---
PreManage Notification: VALENTINO SORTO Security Cement Handler Events 7 event(s) in the past 18 months Most recent security events: Elopement at [facility] 03/18/2023 17:26 - Patient eloped before treatment completed. - Patient with suicidal and/or homicidal ideations eloped. - Patient eloped with IV in place. Details: Patient LWBS Elopement at [facility] 02/16/2023 22:21 - Patient eloped before treatment completed. - Patient with suicidal and/or homicidal ideations eloped. - Patient eloped with IV in place. Details: Patient LWOBS Elopement at [facility] 11/21/2022 13:52 - Patient eloped before treatment completed. - Patient with suicidal and/or homicidal ideations eloped. - Patient eloped with IV in place. Details: Patient LWBS. CRITERIA MET - 6 ED Visits in 6 Months - Group Notification - [facility] - Has Care Guidelines CARE PROVIDERS JAMILA NORIEGA [facility] 01/24/2020-Current PHONE: [phone] -[place]- Dentist: Blend Technician [facility] PHONE: [phone] [place] has no Care Guidelines for this patient. Care History Medical/Surgical 03/11/2022 [facility] ALERT KATHLEEN HAS BEEN TRYING TO CONTACT PATIENT. IF PATIENT IS SEEN IN THE ED PLEASE CONTACT KATHLEEN CRISIS LINE [phone]. KATHLEEN HAS A PHONE TO PROVIDE TO THE PATIENT. PLEASE LET PATIENT KNOW. KATHLEEN IS TRYING TO HELP WITH HOUSING RESOURCES AND WOULD LIKE TO FURTHER ASSIST. 09/02/2021 [facility] - MULTIPLE ATTEMPTS TO CONTACT PATIENT - - PATIENT HAS DECLINED COMMUNITY COUNSELING SOLUTIONS HELP- MULTIPLE ATTEMPTS HAVE BEEN MADE AND PATIENT DECLINES EVERY TIME. - PATIENT HAS DECLINED HELP FROM KATHLEEN - PATIENT IS ABLE TO GO TO THE DAY CENTER THAT KATHLEEN PROVIDES. 11/27/2020 [facility] - KATHLEEN HELPED PATIENT WITH [...] BEING CONTACTED. E.D. VISIT COUNT (12 MO.) 25 LASHAY Vasquez [facility]. Radha LesterTroy (Johny Mcclain) TOTAL 29 NOTE: Visits indicate total known visits. ED/UCC VISIT TRACKING (12 MO.) 06/06/2023 10:19 [facility] [place] TYPE: Emergency COMPLAINT: - SKIN PROBLEM 05/03/2023 15:19 [facility] [place] TYPE: Emergency COMPLAINT: - SKIN PROBLEMS DIAGNOSES: - Erythematous condition, unspecified - Essential (primary) hypertension - Exposure to other nonionizing radiation, initial encounter - Nicotine dependence, unspecified, uncomplicated - Other remote computer terminal operator (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 - Other skin changes due to chronic exposure to nonionizing radiation 04/29/2023 15:29 [facility] Johny ROSARIO (Johny Mcclain) TYPE: Emergency DIAGNOSES: - [...] - Nicotine dependence, unspecified, uncomplicated - Other fci (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 - Other stimulant abuse, [...] Cervicalgia - Essential (primary) hypertension - Other remote computer terminal operator (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 - Pain in left [...] Emergency COMPLAINT: - FLANK PAIN 02/16/2023 06:39 [facility] [place] [facility] COMPLAINT: - HAND PAIN DIAGNOSES: - Anxiety disorder, unspecified - Essential (primary) hypertension - Nicotine dependence, unspecified, uncomplicated - Other remote computer terminal operator (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 - Schizoaffective disorder, unspecified - Type 2 diabetes mellitus without complications - Xerosis cutis - Xerosis cutis 02/15/2023 00:29 [place] TYPE: Emergency COMPLAINT: - HEAT STRESSED 02/14/2023 14:30 [facility] [place] TYPE: Emergency COMPLAINT: - POSS HEAT STROKE 01/29/2023 00:24 LASHAY [place]ook [place] TYPE: Emergency COMPLAINT: - SKIN PROBLEM DIAGNOSES: - Anxiety disorder, unspecified - Dermatitis, unspecified - Essential (primary) hypertension - Nicotine dependence, unspecified, uncomplicated - Other fci (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 - Pain in left hand - Type 2 diabetes mellitus without complications 01/27/2023 09:48 [facility] TYPE: Emergency COMPLAINT: - MEDICAL CLEARANCE DIAGNOSES: - Delusional disorders - Dermatitis, unspecified - Disorder of thyroid, unspecified - Essential (primary) hypertension - Nicotine dependence, unspecified, uncomplicated - Other fci (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 - Type 2 diabetes mellitus without complications 01/14/2023 10:54 [facility] Johny ROSARIO ([place]) TYPE: Emergency DIAGNOSES: - Changes in skin texture - hands burning - Wound Check 01/13/2023 18:46 [facility] Johny ROSARIO ([place]) TYPE: Emergency DIAGNOSES: - Cellulitis of right upper limb - Rash and other nonspecific skin eruption - Scabies - hand pain - Headache (Adult - New Onset Or New Symptoms) - Nausea - Scabies (Possible) 01/10/2023 07:21 [facility] [place] TYPE: Emergency COMPLAINT: - HAND PAIN/SWELLING DIAGNOSES: - Changes in skin texture - Essential (primary) hypertension - Nicotine dependence, unspecified, uncomplicated - Other fci (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 - Other stimulant abuse, uncomplicated - Pain in left hand - Type 2 diabetes mellitus without complications Plus 9 More Visits INPATIENT VISIT TRACKING (12 MO.) 12/09/2022 18:55 [facility] Radha ROSARIO (Johny Mcclain) TYPE: Medical Surgical DIAGNOSES: - Cellulitis of right upper limb - Cellulitis of right upper limb [email or web address]
== END 2023-06-06 11:03 | disposition home or self-care (01) ==
LOC: ED 10:19
DX: R21 Rash and other nonspecific skin eruption (principal); I10 Essential (primary) hypertension; E11.9 Type 2 diabetes mellitus without complications; F17.200 Nicotine dependence, unspecified, uncomplicated

== ENCOUNTER 2023-06-22 20:27 | Emergency (ER) | payer MEDICARE ==
[~2023-06-22] VITALS: Ht 162.6 cm; Wt 52.0 kg
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
[2023-06-22 21:51] VITALS: BP 182/113
== END 2023-06-22 21:50 | disposition home or self-care (01) ==
LOC: ED 20:27
DX: L98.9 Disorder of the skin and subcutaneous tissue, unspecified (principal); I10 Essential (primary) hypertension; E11.9 Type 2 diabetes mellitus without complications; F17.200 Nicotine dependence, unspecified, uncomplicated
CPT/HCPCS: 80307; 99283

== ENCOUNTER 2023-06-28 18:30 | Emergency (ER) | payer MEDICARE, OTHER ==
[~2023-06-28] VITALS: Ht 162.6 cm; Wt 52.0 kg
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
[2023-06-28 19:34] LABS: BASOPHILS 0.7 % (0-2); EOSINOPHILS 3.3 % (0-6); HEMATOCRIT 35.3 % (35.0-50.0); HEMOGLOBIN 11.6 g/dL (12.0-18.0); LYMPHOCYTES 14.2 % (24-44); MCH 30.9 (27-36); MCHC 32.7 g/dl (30-36); MCV 94.3 fl (81-99); MONOCYTES 10.3 % (0-12); NEUTROPHILS 71.5 % (39-80); PLATELET COUNT 247 K/uL (140-440); RBC 3.75 M/ul (4.3-5.7)
[2023-06-28 20:06] LABS: INFLUENZA B NAA NEGATIVE (NEGATIVE); RESPIRATORY SYNCYTIAL VIR NAA NEGATIVE (NEGATIVE)
[2023-06-28 20:52] VITALS: BP 152/88
== END 2023-06-28 20:45 | disposition home or self-care (01) ==
LOC: ED 18:30
PROVIDERS: Family Medicine
DX: J40 Bronchitis, not specified as acute or chronic (principal); I10 Essential (primary) hypertension; E11.9 Type 2 diabetes mellitus without complications; F17.200 Nicotine dependence, unspecified, uncomplicated; Z20.822 Contact with and (suspected) exposure to COVID-19
CPT/HCPCS: 36415; 71045; 85025; 87502; C9803; U0002

== ENCOUNTER 2023-07-30 14:46 | Emergency (ER) | payer MEDICARE, OTHER ==
[~2023-07-30] VITALS: Ht 162.6 cm; Wt 52.6 kg
[2023-07-30 19:03] VITALS: BP 139/84
== END 2023-07-30 19:10 | disposition home or self-care (01) ==
LOC: ED 14:46
DX: R21 Rash and other nonspecific skin eruption (principal); F15.10 Other stimulant abuse, uncomplicated; I10 Essential (primary) hypertension; E11.9 Type 2 diabetes mellitus without complications; F17.200 Nicotine dependence, unspecified, uncomplicated
CPT/HCPCS: 99282

== ENCOUNTER 2023-11-03 23:09 | Emergency (ER) | payer MEDICARE, OTHER ==
[~2023-11-03] VITALS: Ht 162.6 cm; Wt 54.0 kg
[~2023-11-03 23:09] MED LIST changes: +TRIAMCINOLONE A80 GM TOP
[2023-11-03 23:40] VITALS: BP 172/88
== END 2023-11-03 23:40 | disposition home or self-care (01) ==
LOC: ED 23:09
DX: L30.9 Dermatitis, unspecified (principal); F15.10 Other stimulant abuse, uncomplicated; I10 Essential (primary) hypertension; E11.9 Type 2 diabetes mellitus without complications; E07.9 Disorder of thyroid, unspecified; F25.9 Schizoaffective disorder, unspecified; F17.200 Nicotine dependence, unspecified, uncomplicated
CPT/HCPCS: 99283

== ENCOUNTER 2024-01-18 03:45 | Emergency (ER) | payer MEDICARE, OTHER ==
[~2024-01-18] VITALS: Ht 162.6 cm; Wt 54.0 kg
[~2024-01-18 03:45] MED LIST changes: +EUCERIN ADVANC454 GM TOP
[2024-01-18] MEDS ORDERED: ONDANSETRON 4 MG TAB ODT SL ONE (04:00)
[2024-01-18] MEDS ORDERED: CLOTRIMAZOLE-BE15 GM TOP (04:24)
[2024-01-18 04:32] VITALS: BP 183/123
== END 2024-01-18 04:34 | disposition home or self-care (01) ==
LOC: ED 03:45
DX: F15.10 Other stimulant abuse, uncomplicated (principal); F22 Delusional disorders; I10 Essential (primary) hypertension; E11.9 Type 2 diabetes mellitus without complications; F17.200 Nicotine dependence, unspecified, uncomplicated
CPT/HCPCS: A9270

== ENCOUNTER 2024-01-20 03:34 | Emergency (ER) | payer MEDICARE, OTHER ==
[~2024-01-20] VITALS: Ht 162.6 cm; Wt 49.0 kg
[~2024-01-20 03:34] MED LIST changes: +CLOTRIMAZOLE-BE15 GM TOP
[2024-01-20] MEDS ORDERED: LORazepam 0.5 MG TAB PO ONE (04:15)
[2024-01-20 06:05] VITALS: BP 171/98
== END 2024-01-20 06:10 | disposition home or self-care (01) ==
LOC: ED 03:34
DX: F15.10 Other stimulant abuse, uncomplicated (principal); I10 Essential (primary) hypertension; E11.9 Type 2 diabetes mellitus without complications; F17.200 Nicotine dependence, unspecified, uncomplicated

== ENCOUNTER 2024-02-22 05:55 | Emergency (ER) | payer MEDICARE ==
[~2024-02-22] VITALS: Ht 162.6 cm; Wt 50.0 kg
[2024-02-22] MEDS ORDERED: EUCERIN ADVANC454 GM TOP (06:05)
[2024-02-22 06:10] VITALS: BP 179/102
== END 2024-02-22 06:10 | disposition home or self-care (01) ==
LOC: ED 05:55
DX: L30.9 Dermatitis, unspecified (principal); I10 Essential (primary) hypertension; E11.9 Type 2 diabetes mellitus without complications; F17.200 Nicotine dependence, unspecified, uncomplicated
CPT/HCPCS: 99282

== ENCOUNTER 2024-03-04 02:46 | Emergency (ER) | payer MEDICARE, OTHER ==
[~2024-03-04] VITALS: Ht 162.6 cm; Wt 50.0 kg
[~2024-03-04 02:46] MED LIST changes: +CYCLOBENZAPRINE10 MG PO
[2024-03-04 03:00] VITALS: BP 199/119
== END 2024-03-04 03:00 | disposition home or self-care (01) ==
LOC: ED 02:46
DX: F19.10 Other psychoactive substance abuse, uncomplicated (principal); I10 Essential (primary) hypertension; E11.9 Type 2 diabetes mellitus without complications; F17.200 Nicotine dependence, unspecified, uncomplicated
CPT/HCPCS: 99283

== ENCOUNTER 2024-03-15 13:15 | Emergency (ER) | payer MEDICARE, OTHER ==
[~2024-03-15] VITALS: Ht 162.6 cm; Wt 50.0 kg
[2024-03-15 14:09] VITALS: BP 169/98
== END 2024-03-15 14:10 | disposition home or self-care (01) ==
LOC: ED 13:15
DX: L30.9 Dermatitis, unspecified (principal); B86 Scabies; I10 Essential (primary) hypertension; E11.9 Type 2 diabetes mellitus without complications; F25.9 Schizoaffective disorder, unspecified; F17.200 Nicotine dependence, unspecified, uncomplicated
CPT/HCPCS: 99283

== ENCOUNTER 2024-03-21 00:02 | Emergency (ER) | payer MEDICARE, OTHER ==
[~2024-03-21] VITALS: Ht 162.6 cm; Wt 51.6 kg
[2024-03-21 00:53] VITALS: BP 167/89
== END 2024-03-21 00:54 | disposition home or self-care (01) ==
LOC: ED 00:02
DX: L30.9 Dermatitis, unspecified (principal); Q87.40 Marfan syndrome, unspecified; I10 Essential (primary) hypertension; E11.9 Type 2 diabetes mellitus without complications; E07.9 Disorder of thyroid, unspecified; F17.200 Nicotine dependence, unspecified, uncomplicated; F15.10 Other stimulant abuse, uncomplicated; F25.9 Schizoaffective disorder, unspecified
CPT/HCPCS: 99282

== ENCOUNTER 2024-03-25 17:12 | Emergency (ER) | payer MEDICARE, OTHER ==
[~2024-03-25] VITALS: Ht 162.6 cm; Wt 51.3 kg
[2024-03-25] MEDS ORDERED: PERMETHRIN 60 GM TUBE TOP ONE (17:30)
[2024-03-25] MEDS ORDERED: ELIMITE60 GM TOP (17:38)
[2024-03-25 17:55] VITALS: BP 168/89
== END 2024-03-25 17:55 | disposition home or self-care (01) ==
LOC: ED 17:12
DX: L85.3 Xerosis cutis (principal); I10 Essential (primary) hypertension; E11.9 Type 2 diabetes mellitus without complications; Q87.40 Marfan syndrome, unspecified; E07.9 Disorder of thyroid, unspecified
CPT/HCPCS: 99282

== ENCOUNTER 2024-04-21 14:17 | Emergency (ER) | payer MEDICARE, OTHER ==
[~2024-04-21] VITALS: Ht 162.6 cm; Wt 52.3 kg
[2024-04-21] MEDS ORDERED: TETRACAINE HCL 0.5% 4 ML BTL OS SCH (16:45)
[2024-04-21] MEDS ORDERED: SULF-PRED 10-0.25 ML OPTH (17:03)
[2024-04-21 17:05] VITALS: BP 155/100
== END 2024-04-21 17:10 | disposition home or self-care (01) ==
LOC: ED 14:17
DX: S05.02XA Injury of conjunctiva and corneal abrasion without foreign body, left eye, initial encounter (principal); X58.XXXA Exposure to other specified factors, initial encounter; I10 Essential (primary) hypertension; E11.9 Type 2 diabetes mellitus without complications; F17.200 Nicotine dependence, unspecified, uncomplicated; Z79.899 Other long term (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
CPT/HCPCS: 99282

== ENCOUNTER 2024-04-29 11:35 | Emergency (ER) | payer MEDICARE, OTHER ==
[~2024-04-29] VITALS: Ht 162.6 cm; Wt 56.2 kg
[~2024-04-29 11:35] MED LIST changes: +SULF-PRED 10-0.25 ML OPTH
[2024-04-29 13:10] VITALS: BP 155/78
== END 2024-04-29 13:19 | disposition home or self-care (01) ==
LOC: ED 11:35
DX: L85.3 Xerosis cutis (principal); I10 Essential (primary) hypertension; E11.9 Type 2 diabetes mellitus without complications; F17.200 Nicotine dependence, unspecified, uncomplicated; Z79.899 Other long term (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
CPT/HCPCS: 99282

== ENCOUNTER 2024-05-05 23:55 | Emergency (ER) | payer MEDICARE, OTHER ==
[~2024-05-05] VITALS: Ht 162.6 cm; Wt 50.0 kg
[2024-05-06] MEDS ORDERED: BENZONATATE100 MG PO (00:54)
[2024-05-06] MEDS ORDERED: VENTOLIN HFA18 GM INH (00:54)
[2024-05-06] MEDS ORDERED: BENZONATATE 100 MG CAP PO ONE (01:00)
[2024-05-06] MEDS ORDERED: methylPREDNISolone 4 MG HOME.PACK PO ONE (01:00)
[2024-05-06 01:05] VITALS: BP 176/93
== END 2024-05-06 01:05 | disposition home or self-care (01) ==
LOC: ED 23:55
DX: J40 Bronchitis, not specified as acute or chronic (principal); I10 Essential (primary) hypertension; E11.9 Type 2 diabetes mellitus without complications; F17.200 Nicotine dependence, unspecified, uncomplicated
CPT/HCPCS: 71045; 99283-25

== ENCOUNTER 2024-06-29 09:05 | Emergency (ER) | payer MEDICARE, OTHER ==
[~2024-06-29] VITALS: Ht 162.6 cm; Wt 53.2 kg
[~2024-06-29 09:05] MED LIST changes: +BENZONATATE100 MG PO
[2024-06-29 10:19] VITALS: BP 152/95
== END 2024-06-29 10:19 | disposition home or self-care (01) ==
LOC: ED 09:05
DX: J06.9 Acute upper respiratory infection, unspecified (principal); I10 Essential (primary) hypertension; E11.9 Type 2 diabetes mellitus without complications; F25.9 Schizoaffective disorder, unspecified; F17.200 Nicotine dependence, unspecified, uncomplicated; Z79.899 Other long term (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
CPT/HCPCS: 71045; 99283-25

== ENCOUNTER 2024-07-05 03:15 | Emergency (ER) | payer MEDICARE, OTHER ==
[~2024-07-05] VITALS: Ht 162.6 cm; Wt 53.2 kg
[2024-07-05] MEDS ORDERED: DOXYCYCLINE HYCLATE 100 MG HOME.PACK PO ONE (03:30)
[2024-07-05 03:42] VITALS: BP 153/98
== END 2024-07-05 03:45 | disposition home or self-care (01) ==
LOC: ED 03:15
DX: S60.862A Insect bite (nonvenomous) of left wrist, initial encounter (principal); L08.9 Local infection of the skin and subcutaneous tissue, unspecified; I10 Essential (primary) hypertension; Q87.40 Marfan syndrome, unspecified; E11.9 Type 2 diabetes mellitus without complications; E07.9 Disorder of thyroid, unspecified; F17.200 Nicotine dependence, unspecified, uncomplicated; Z79.899 Other long term (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; W57.XXXA Bitten or stung by nonvenomous insect and other nonvenomous arthropods, initial encounter
CPT/HCPCS: 99282; A9270

== ENCOUNTER 2024-11-14 22:26 | Emergency (ER) | payer MEDICARE, OTHER ==
[~2024-11-14] VITALS: Ht 162.6 cm; Wt 52.3 kg
[2024-11-14 22:39] LABS: BASOPHILS 1.1 % (0-2); EOSINOPHILS 2.2 % (0-6); HEMOGLOBIN 12.6 g/dL (12.0-18.0); LYMPHOCYTES 18.3 % (24-44); MCH 28.6 (27-36); MCHC 33.1 g/dl (30-36); MCV 86.4 fl (81-99); MONOCYTES 14.6 % (0-12); NEUTROPHILS 63.8 % (39-80); PLATELET COUNT 283 K/uL (140-440); RBC 4.39 M/ul (4.3-5.7); RDW 16.2 (10.5-15.0)
[2024-11-14] MEDS ORDERED: FUROSEMIDE20 MG PO (22:46)
[2024-11-14] MEDS ORDERED: LOSARTAN POTASS25 MG PO (22:46)
[2024-11-14] MEDS ORDERED: JARDIANCE10 MG PO (22:46)
[2024-11-14] MEDS ORDERED: METOPROLOL TART25 MG PO (22:47)
[2024-11-14] MEDS ORDERED: SPIRONOLACTONE25 MG PO (22:47)
[2024-11-14 22:52] LABS: INR 1.06 (0.80-1.30); PROTIME 13.1 Sec (11.2-14.2)
[2024-11-14 23:05] LABS: ALBUMIN 2.8 g/dL (3.4-5.0); ALBUMIN/GLOBULIN RATIO 0.72 (1.1-2.4); ANION GAP 6.2 (7-21); BILIRUBIN, TOTAL 0.2 mg/dL (0.2-1.0); BUN/CREATININE RATIO 32.7 (6.0-28.6); CALCIUM 8.6 mg/dL (8.5-10.1); CREATININE, SERUM 1.59 mg/dL (0.70-1.30); MAGNESIUM 2.2 mg/dL (1.8-2.4); POTASSIUM 4.2 mmol/L (3.5-5.1); PROTEIN, TOTAL 6.7 g/dL (6.4-8.2)
[2024-11-15 00:30] VITALS: BP 128/85
--- NOTE | 2024-11-15 13:15 | EKG ---
[facility] [address] [facility] [place] [address] Signed Normal sinus rhythm Left ventricular hypertrophy with repolarization abnormality ( R in aVL , Elio product , Romhilt-Melendrez ) Abnormal ECG When compared with ECG of 01-OCT-2023 10:34, Sinus rhythm has replaced Atrial fibrillation ST less depressed in Inferior leads T wave inversion more evident in Lateral leads Confirmed by Gurjit Andersen MD ([id number]) on 11/15/2024 1:15:07 PM Electronically Signed By: GURJIT ANDERSEN MD 11/15/24 1315 PATIENT NAME: VALENTINO SORTO Electrocardiogram DATE OF : 68 PHYSICIAN: GURJIT ANDERSEN MD REPORT #: [id number] REPORT IS CONFIDENTIAL AND NOT TO BE RELEASED WITHOUT AUTHORIZATION
== END 2024-11-15 00:30 | disposition home or self-care (01) ==
LOC: ED 22:26
PROVIDERS: Family Medicine
DX: R07.89 Other chest pain (principal); I11.0 Hypertensive heart disease with heart failure; I50.9 Heart failure, unspecified; E11.9 Type 2 diabetes mellitus without complications; F17.200 Nicotine dependence, unspecified, uncomplicated
CPT/HCPCS: 36415; 71045; 80053; 83735; 83880; 84484; 85025; 85610; 93005; 93010; 99285-25

== ENCOUNTER 2024-12-02 23:19 | Emergency (ER) | payer MEDICARE, OTHER ==
[~2024-12-02] VITALS: Ht 162.6 cm; Wt 52.3 kg
[~2024-12-02 23:19] MED LIST changes: +FUROSEMIDE20 MG PO; +JARDIANCE10 MG PO; +LOSARTAN POTASS25 MG PO; +METOPROLOL TART25 MG PO; +SPIRONOLACTONE25 MG PO
[2024-12-02 23:32] LABS: BASOPHILS 0.4 % (0-2); EOSINOPHILS 3.2 % (0-6); HEMATOCRIT 31.1 % (35.0-50.0); HEMOGLOBIN 10.1 g/dL (12.0-18.0); LYMPHOCYTES 13.4 % (24-44); MCH 28.2 (27-36); MCHC 32.5 g/dl (30-36); MCV 86.9 fl (81-99); MONOCYTES 6.9 % (0-12); NEUTROPHILS 76.1 % (39-80); PLATELET COUNT 254 K/uL (140-440); RBC 3.58 M/ul (4.3-5.7); RDW 17.8 (10.5-15.0)
[2024-12-02 23:45] LABS: ALBUMIN 2.5 g/dL (3.4-5.0); ALBUMIN/GLOBULIN RATIO 0.68 (1.1-2.4); ANION GAP 12.2 (7-21); BILIRUBIN, TOTAL 0.3 mg/dL (0.2-1.0); BUN/CREATININE RATIO 22.76 (6.0-28.6); CALCIUM 8.2 mg/dL (8.5-10.1); CREATININE, SERUM 1.23 mg/dL (0.70-1.30); MAGNESIUM 1.6 mg/dL (1.8-2.4); POTASSIUM 4.2 mmol/L (3.5-5.1); PROTEIN, TOTAL 6.2 g/dL (6.4-8.2)
[2024-12-03] MEDS ORDERED: LACTATED RINGER'S 1,000 ML IV ONE ×2 (01:15→03:00)
[2024-12-03 01:25] LABS: BILIRUBIN, URINE NEGATIVE (negative); BLOOD/HGB, URINE NEGATIVE (Negative); KETONE, URINE NEGATIVE (Negative); LEUK ESTERASE, URINE NEGATIVE (negative); NITRITE, URINE NEGATIVE (negative)
[2024-12-03 01:42] LABS: AMPHETAMINES, URINE NEGATIVE (NEGATIVE); BARBITURATES, URINE NEGATIVE (NEGATIVE); BENZODIAZEPINE, URINE NEGATIVE (NEGATIVE); BUPRENORPHINE, URINE NEGATIVE (NEGATIVE); CANNABINOID, URINE NEGATIVE (NEGATIVE); COCAINE, URINE NEGATIVE (NEGATIVE); ECSTASY, URINE NEGATIVE (NEGATIVE); FENTANYL, URINE POSITIVE (NEGATIVE); METHADONE, URINE NEGATIVE (NEGATIVE); OPIATES, URINE NEGATIVE (NEGATIVE); OXYCODONE, URINE NEGATIVE (NEGATIVE); PHENCYCLIDINE, URINE NEGATIVE (NEGATIVE)
[2024-12-03] MEDS ORDERED: ondansetron HCL 4 MG/2 ML VIAL IV ONE (03:00)
[2024-12-03] MEDS ORDERED: KETOROLAC TROMETHAMINE 30 MG/ML VIAL IV ONE (03:00)
[2024-12-03] MEDS ORDERED: FUROSEMIDE 40 MG/4 ML VIAL IV ONE (04:15)
[2024-12-03] MEDS ORDERED: LASIX40 MG PO (04:45)
[2024-12-03] MEDS ORDERED: POTASSIUM CHLO20 ME2 PO (04:45)
[2024-12-03 05:27] VITALS: BP 154/87
[2024-12-04] MEDS ORDERED: ONDANSETRON ODT4 MG PO (09:26)
== END 2024-12-03 05:28 | disposition home or self-care (01) ==
LOC: ED 23:19
PROVIDERS: Internal Medicine
DX: R10.9 Unspecified abdominal pain (principal); R11.2 Nausea with vomiting, unspecified; I50.9 Heart failure, unspecified; F17.200 Nicotine dependence, unspecified, uncomplicated; F15.10 Other stimulant abuse, uncomplicated; E11.9 Type 2 diabetes mellitus without complications; Z79.899 Other long term (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
CPT/HCPCS: 36415; 74177; 80053; 80307; 81003; 83690; 83735; 83880; 84484; 85025; 96375; 99284-25; J1885; J1938; J2405; J7121

== ENCOUNTER 2024-12-04 09:02 | Emergency (ER) | payer MEDICARE, OTHER ==
[~2024-12-04] VITALS: Ht 162.6 cm; Wt 54.1 kg
[~2024-12-04 09:02] MED LIST changes: +LASIX40 MG PO; +POTASSIUM CHLO20 ME2 PO
[2024-12-04] MEDS ORDERED: ONDANSETRON ODT4 MG PO ×2 (09:26)
[2024-12-04 11:16] VITALS: BP 154/114
== END 2024-12-04 11:16 | disposition home or self-care (01) ==
LOC: ED 09:02
DX: N50.89 Other specified disorders of the male genital organs (principal); E11.9 Type 2 diabetes mellitus without complications; I10 Essential (primary) hypertension; I50.9 Heart failure, unspecified; F17.200 Nicotine dependence, unspecified, uncomplicated; Z79.899 Other long term (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
CPT/HCPCS: 76870; 81001; 99284

== ENCOUNTER 2024-12-04 18:05 | Emergency (ER) | payer MEDICARE, OTHER ==
[~2024-12-04] VITALS: Ht 162.6 cm; Wt 54.1 kg
[~2024-12-04 18:05] MED LIST changes: +ONDANSETRON ODT4 MG PO
[2024-12-04 19:41] VITALS: BP 157/103
== END 2024-12-04 19:40 | disposition home or self-care (01) ==
LOC: ED 18:05
DX: R53.1 Weakness (principal); Z59.00 Homelessness unspecified; I10 Essential (primary) hypertension; E11.9 Type 2 diabetes mellitus without complications; I50.9 Heart failure, unspecified; F17.200 Nicotine dependence, unspecified, uncomplicated
CPT/HCPCS: 99284

== ENCOUNTER 2025-02-25 21:40 | Emergency (ER) | payer MEDICARE, OTHER ==
[~2025-02-25] VITALS: Ht 162.6 cm; Wt 47.2 kg
--- OUTSIDE RECORDS SUMMARY | ~2025-02-25 | XMS | Continuity of Care Document ---
Demographics + + + | Address | [address] | | | [place] [address] | + + + | Preferred Language | Unknown | + + + | Marital Status | Unknown | + + + | Christian Affiliation | Unknown | + + + | Race | White | + + + | Ethnic Group | Not or | + + + Author + + + | Author | [place] | + + + | Organization | [facility] | + + + | Address | [address] | | | [place] [address] | + + + | Phone | | + + + Care Team Providers + + + + | Care Senior Biostatistician/Group Leader Name | Role | Phone | + + + + Unavailable | Unavailable | + + + + Allergies No information. Encounters No information. Functional Status No information. Immunizations No information. Medications No information. Problems + + + + | date | description | facility | + + + + | 2024-12-16 21:47:01 | Shortness of Breath | [facility] | + + + + | 2024-12-16 23:38:27 | Imaging @ Upper Arteries @ | [facility] | | | Ultrasonography @ Internal | | | | Carotid Arteries, Bilateral | | + + + + Procedures No information. Results/Labs No information. Social History +--------+ + + | date | description | facility | +--------+ + + Vital Signs No information."
[2025-02-25] MEDS ORDERED: LOSARTAN-HCTZ1 EACH PO (22:03)
[2025-02-25] MEDS ORDERED: KLOR-CON 1010 MEQ PO (22:03)
[2025-02-25] MEDS ORDERED: MUPIROCIN22 GM TOP (22:06)
[2025-02-25] MEDS ORDERED: POTASSIUM CHLORIDE 10 MEQ TABCR PO ONE (22:15)
[2025-02-25] MEDS ORDERED: TRIAMCINOLONE 0.1% 15 GM TUBE TOP ONE (22:15)
[2025-02-25] MEDS ORDERED: LOSARTAN POTASSIUM 50 MG TAB PO ONE (22:15)
[2025-02-25] MEDS ORDERED: hydroCHLOROthiazide 25 MG TAB PO ONE (22:15)
[2025-02-25 22:41] VITALS: BP 140/100
[2025-02-28] MEDS ORDERED: LACTULOSE10 GM/15 M PO (01:13)
== END 2025-02-25 22:39 | disposition home or self-care (01) ==
LOC: ED 21:40
DX: Z76.0 Encounter for issue of repeat prescription (principal); E11.9 Type 2 diabetes mellitus without complications; I11.0 Hypertensive heart disease with heart failure; I50.9 Heart failure, unspecified; I25.2 Old myocardial infarction; F17.200 Nicotine dependence, unspecified, uncomplicated
CPT/HCPCS: 99281; A9270

== ENCOUNTER 2025-03-18 16:11 | Emergency (ER) | payer MEDICARE ==
[~2025-03-18] VITALS: Ht 162.6 cm; Wt 49.5 kg
[~2025-03-18 16:11] MED LIST changes: +KLOR-CON 1010 MEQ PO; +LACTULOSE10 GM/15 M PO; +LOSARTAN-HCTZ1 EACH PO; +MUPIROCIN22 GM TOP
[2025-03-18] MEDS ORDERED: DOXYCYCLINE HY100 MG PO (17:07)
[2025-03-18] MEDS ORDERED: ERYTHROMYCIN1 GM OP (17:08)
[2025-03-18] MEDS ORDERED: VANCOMYCIN HCL 1 GM in DEXTROSE 5% 250 ML IV ONE (17:15)
[2025-03-18] MEDS ORDERED: AMP/SULBACTAM SOD 3 GM in SODIUM CHLORIDE 0.9% 100 ML IV ONE (17:15)
[2025-03-18 17:43] LABS: BASOPHILS 0.7 % (0.2-1.2); EOSINOPHILS 5.8 % (0.8-7.0); LYMPHOCYTES 10.6 % (21.8-53.1); MCH 27.8 PG (25.7-32.2); MCHC 31.4 g/dL (32.3-36.5); MCV 88.5 fL (79.0-92.2); MONOCYTES 9.4 % (5.3-12.2); NEUTROPHILS 73.4 % (34.0-67.9); RBC 4.07 M/uL (4.63-6.08)
[2025-03-18 18:02] LABS: ALT (SGPT) 21.0 U/L (14-59); AST (SGOT) 12.0 U/L (15-37); GLOMERULAR FILTRATION RATE,EST 98.0 mL/min (>60); PROTEIN, TOTAL 6.8 g/dL (6.4-8.2); UREA NITROGEN 22.0 mg/dL (7-18)
[2025-03-18 21:46] VITALS: BP 151/83
== END 2025-03-18 21:48 | disposition short-term general hospital (02) ==
LOC: ED 16:11
PROVIDERS: Emergency Medicine
DX: H05.011 Cellulitis of right orbit (principal); H00.032 Abscess of right lower eyelid; E11.9 Type 2 diabetes mellitus without complications; I11.0 Hypertensive heart disease with heart failure; I50.9 Heart failure, unspecified; F17.200 Nicotine dependence, unspecified, uncomplicated
CPT/HCPCS: 36415; 70487; 80053; 85025; 96365; 96367; 99284-25; J0295; J3373; J7060; Q9967

== ENCOUNTER 2025-04-17 22:34 | Emergency (ER) | payer MEDICARE, OTHER ==
[~2025-04-17] VITALS: Ht 162.6 cm; Wt 49.0 kg
[2025-04-18] MEDS ORDERED: AMOX TR-K CLV1 EAC1 PO (00:15)
[2025-04-18] MEDS ORDERED: AMOXICILLIN/CLAVULANATE K 875 MG HOME.PACK PO ONE (00:15)
[2025-04-18 00:40] VITALS: BP 151/83
== END 2025-04-18 00:44 | disposition home or self-care (01) ==
LOC: ED 22:34
DX: K02.9 Dental caries, unspecified (principal); E11.9 Type 2 diabetes mellitus without complications; I11.0 Hypertensive heart disease with heart failure; I50.9 Heart failure, unspecified; I25.2 Old myocardial infarction; F17.200 Nicotine dependence, unspecified, uncomplicated
CPT/HCPCS: 99282

== ENCOUNTER 2025-04-21 20:32 | Emergency (ER) | payer MEDICARE, OTHER ==
[~2025-04-21] VITALS: Ht 162.6 cm; Wt 49.0 kg
[2025-04-21 21:52] LABS: BASOPHILS 1.0 % (0.2-1.2); EOSINOPHILS 12.2 % (0.8-7.0); LYMPHOCYTES 15.1 % (21.8-53.1); MCH 27.6 PG (25.7-32.2); MCHC 32.1 g/dL (32.3-36.5); MCV 86.2 fL (79.0-92.2); MONOCYTES 10.3 % (5.3-12.2); NEUTROPHILS 61.2 % (34.0-67.9); RBC 3.98 M/uL (4.63-6.08)
[2025-04-21 22:15] LABS: ALT (SGPT) 50.0 U/L (14-59); AST (SGOT) 77.0 U/L (15-37); GLOMERULAR FILTRATION RATE,EST 78.0 mL/min (>60); PROTEIN, TOTAL 6.6 g/dL (6.4-8.2); UREA NITROGEN 30.0 mg/dL (7-18)
[2025-04-22 05:55] VITALS: BP 128/80
--- NOTE | 2025-04-23 10:43 | EKG ---
[facility] [address] [facility] [place] [address] Signed Normal sinus rhythm Left ventricular hypertrophy T wave abnormality, consider inferior ischemia Abnormal ECG When compared with ECG of 14-NOV-2024 22:25, T wave inversion no longer evident in Anterolateral leads Confirmed by Shaheen Jacobo DO ([id number]) on 04/23/2025 10:43:00 AM Electronically Signed By: SHAHEEN JACOBO DO 04/23/25 1043 PATIENT NAME: NOREEN,VALENTINOLASHELL FREEMAN Electrocardiogram DATE OF : 68 PHYSICIAN: SHAHEEN JACOBO DO REPORT #: [id number] REPORT IS CONFIDENTIAL AND NOT TO BE RELEASED WITHOUT AUTHORIZATION
== END 2025-04-22 05:56 | disposition home or self-care (01) ==
LOC: ED 20:32
PROVIDERS: Emergency Medicine
DX: R07.9 Chest pain, unspecified (principal); E11.9 Type 2 diabetes mellitus without complications; I11.0 Hypertensive heart disease with heart failure; I50.9 Heart failure, unspecified; F17.200 Nicotine dependence, unspecified, uncomplicated; Z59.00 Homelessness unspecified
CPT/HCPCS: 36415; 80053; 80307; 81001; 83880; 84484; 85025; 93005; 93010; 99285

== ENCOUNTER 2025-04-24 01:41 | Emergency (ER) | payer MEDICARE, OTHER ==
[~2025-04-24] VITALS: Ht 162.6 cm; Wt 54.5 kg
[2025-04-24] MEDS ORDERED: ACETAMINOPHEN 500 MG TAB PO ONE (02:00)
[2025-04-24 05:31] VITALS: BP 134/92
== END 2025-04-24 05:32 | disposition home or self-care (01) ==
LOC: ED 01:41
DX: S16.1XXA Strain of muscle, fascia and tendon at neck level, initial encounter (principal); F17.200 Nicotine dependence, unspecified, uncomplicated; E11.9 Type 2 diabetes mellitus without complications; I11.0 Hypertensive heart disease with heart failure; I50.9 Heart failure, unspecified; X58.XXXA Exposure to other specified factors, initial encounter
CPT/HCPCS: 99283; A9270

== ENCOUNTER 2025-04-25 22:43 | Emergency (ER) | payer MEDICARE, OTHER ==
[~2025-04-25] VITALS: Ht 162.6 cm; Wt 53.2 kg
--- OUTSIDE RECORDS SUMMARY | ~2025-04-25 | XMS | Continuity of Care Document ---
Demographics + + + | Address | [address] | | | [place] [address] | + + + | Preferred Language | Unknown | + + + | Marital Status | Never | + + + | Denominational Affiliation | Unknown | + + + | Race | White | + + + | Ethnic Group | Not or | + + + Author + + + | Author | [facility] | + + + | Organization | [facility] | + + + | Address | [address] | | | [place] [address] | + + + | Phone | | + + + Care Team Providers + + + + | Care Custom Shoe Designer And Maker Name | Role | Phone | + + + + Unavailable | Unavailable | + + + + Unavailable | Unavailable | + + + + Allergies No information. Encounters No information. Functional Status No information. Immunizations + + + + | date | description | facility | + + + + | (no date) | Tdap | [facility] | | | | [facility] | + + + + Medications + + + + | date | description | facility | + + + + | (no date) | ONDANSETRON | [facility] | | | | [facility] | + + + + | 2025-02-25 00:00 | MUPIROCIN | [facility] | | | | [facility] | + + + + | 2025-02-25 00:00 | TRIAMCINOLONE ACETONIDE | [facility] | | | | [facility] | + + + + | (no date) | EMPAGLIFLOZIN | [facility] | | | | [facility] | + + + + | (no date) | CEPHALEXIN | [facility] | | | | [facility] | + + + + | (no date) | Oseltamivir Phosphate | [facility] | | | | [facility] | + + + + | (no date) | PIMOZIDE | [facility] | | | | [facility] | + + + + | (no date) | SPIRONOLACTONE | [facility] | | | | [facility] | + + + + | (no date) | HALOPERIDOL | [facility] | | | | [facility] | + + + + | (no date) | LISINOPRIL | [facility] | | | | [facility] | + + + + | (no date) | HYDROCHLOROTHIAZIDE | [facility] | | | | [facility] | + + + + | 2025-02-25 00:00 | POTASSIUM CHLORIDE | [facility] | | | | [facility] | + + + + | (no date) | METOPROLOL TARTRATE | [facility] | | | | [facility] | + + + + | (no date) | ONDANSETRON | [facility] | | | | [facility] | + + + + | 2025-02-25 00:00 | | [facility] | | | LOSARTAN/HYDROCHLOROTHIAZID | [facility] | | | E | | + + + + | (no date) | LOSARTAN POTASSIUM | [facility] | | | | [facility] | + + + + Problems + + + + | date | description | facility | + + + + | 2025-02-26 00:00 | Methamphetamine | [facility] | | | intoxication | [facility] | + + + + | 2025-03-19 00:35:27 | Cellulitis of unspecified | [facility] | | | orbit | | + + + + | 2025-03-24 11:15:32 | Cellulitis of right orbit | [facility] | + + + + | 2025-03-24 11:15:32 | Unspecified systolic | [facility] | | | (congestive) heart failure | | | | (CMS/HCC V24, CMS/HCC V28) | | + + + + Procedures No information. Results/Labs No information. Social History +--------+ + + | date | description | facility | +--------+ + + Vital Signs + + + +---------+ | date | measurement | value | units | + + + +---------+ | 2025-02-25 00:00 | BMI | 17.9 | kg/m2 | + + + +---------+ | 2025-02-25 00:00 | BP_diastolic | 100 | mmHg | + + + +---------+ | 2025-02-25 00:00 | BP_systolic | 140 | mmHg | + + + +---------+ | 2025-02-25 00:00 | heart_rate | 69 | /min | + + + +---------+ | 2025-02-25 00:00 | height_metric | 162.56 | cm | + + + +---------+ | 2025-02-25 00:00 | height_standard | 64 | in | + + + +---------+ | 2025-02-25 00:00 | o2_saturation | 97 | % | + + + +---------+ | 2025-02-25 00:00 | respiration_rate | 16 | /min | + + + +---------+ | 2025-02-25 00:00 | temperature_metric | 36.39 | C | | | | | | + + + +---------+ | 2025-02-25 00:00 | | 97.5 | F | | | temperature_standar | | | | | d | | | + + + +---------+ | 2025-02-25 00:00 | weight_metric | 47.2 | kg | + + + +---------+ | 2025-02-25 00:00 | weight_standard | 104.06 | lb | + + + +---------+ | 2025-02-26 00:00 | BMI | 17.9 | kg/m2 | + + + +---------+ | 2025-02-26 00:00 | BP_diastolic | 00 | mmHg | + + + +---------+ | 2025-02-26 00:00 | BP_systolic | 00 | mmHg | + + + +---------+ | 2025-02-26 00:00 | heart_rate | 0 | /min | + + + +---------+ | 2025-02-26 00:00 | height_metric | 162.56 | cm | + + + +---------+ | 2025-02-26 00:00 | height_standard | 64 | in | + + + +---------+ | 2025-02-26 00:00 | o2_saturation | 00 | % | + + + +---------+ | 2025-02-26 00:00 | respiration_rate | 0 | /min | + + + +---------+ | 2025-02-26 00:00 | temperature_metric | -17.78 | C | | | | | | + + + +---------+ | 2025-02-26 00:00 | | 0 | F | | | temperature_standar | | | | | d | | | + + + +---------+ | 2025-02-26 00:00 | weight_metric | 47.2 | kg | + + + +---------+ | 2025-02-26 00:00 | weight_standard | 104.06 | lb | + + + +---------+"
[2025-04-26 00:18] VITALS: BP 149/98
== END 2025-04-26 00:20 | disposition home or self-care (01) ==
LOC: ED 22:43
DX: F22 Delusional disorders (principal); F15.90 Other stimulant use, unspecified, uncomplicated; E11.9 Type 2 diabetes mellitus without complications; I11.0 Hypertensive heart disease with heart failure; I50.9 Heart failure, unspecified; I25.2 Old myocardial infarction; F17.200 Nicotine dependence, unspecified, uncomplicated
CPT/HCPCS: 99284

== ENCOUNTER 2025-05-05 05:48 | Emergency (ER) | payer MEDICARE, OTHER ==
[~2025-05-05] VITALS: Ht 162.6 cm; Wt 60.0 kg
--- OUTSIDE RECORDS SUMMARY | ~2025-05-05 | XMS | Continuity of Care Document ---
Demographics + + + | Address | [address] | | | [place] [address] | + + + | Preferred Language | Unknown | + + + | Marital Status | Never | + + + | Scientologist Affiliation | Unknown | + + + | Race | White | + + + | Ethnic Group | Not or | + + + Author + + + | Author | [facility] | + + + | Organization | [facility] | + + + | Address | [address] | | | [place] [address] | + + + | Phone | | + + + Care Team Providers + + + + | Care Right Of Way Man Name | Role | Phone | + + + + Unavailable | Unavailable | + + + + Unavailable | Unavailable | + + + + Allergies No information. Encounters No information. Functional Status No information. Immunizations + + + + | date | description | facility | + + + + | (no date) | Tdap | [facility] | | | | [facility] | + + + + Medications + + + + | date | description | facility | + + + + | (no date) | ONDANSETRON | [facility] | | | | [facility] | + + + + | 2025-02-25 00:00 | MUPIROCIN | [facility] | | | | [facility] | + + + + | 2025-02-25 00:00 | TRIAMCINOLONE ACETONIDE | [facility] | | | | [facility] | + + + + | (no date) | EMPAGLIFLOZIN | [facility] | | | | [facility] | + + + + | (no date) | DOXYCYCLINE HYCLATE | [facility] | | | | [facility] | + + + + | (no date) | CEPHALEXIN | [facility] | | | | [facility] | + + + + | (no date) | Erythromycin Base | [facility] | | | | [facility] | + + + + | (no date) | Oseltamivir Phosphate | [facility] | | | | [facility] | + + + + | (no date) | PIMOZIDE | [facility] | | | | [facility] | + + + + | (no date) | SPIRONOLACTONE | [facility] | | | | [facility] | + + + + | (no date) | HALOPERIDOL | [facility] | | | | [facility] | + + + + | (no date) | LISINOPRIL | [facility] | | | | [facility] | + + + + | (no date) | HYDROCHLOROTHIAZIDE | [facility] | | | | [facility] | + + + + | 2025-04-18 00:00 | AMOXICILLIN/POTASSIUM CLAV | [facility] | | | | [facility] | + + + + | 2025-02-25 00:00 | POTASSIUM CHLORIDE | [facility] | | | | [facility] | + + + + | (no date) | METOPROLOL TARTRATE | [facility] | | | | [facility] | + + + + | (no date) | ONDANSETRON | [facility] | | | | [facility] | + + + + | 2025-02-25 00:00 | | [facility] | | | LOSARTAN/HYDROCHLOROTHIAZID | [facility] | | | E | | + + + + | (no date) | LOSARTAN POTASSIUM | [facility] | | | | [facility] | + + + + Problems + + + + | date | description | facility | + + + + | 2025-02-26 00:00 | Methamphetamine | [facility] | | | intoxication | [facility] | + + + + | 2025-03-18 00:00 | Abscess of left eyelid | [facility] | | | | [facility] | + + + + | 2025-03-18 00:00 | Cellulitis of right | [facility] | | | orbital region | [facility] | + + + + | 2025-03-19 00:35:27 | Cellulitis of unspecified | [facility] | | | orbit | | + + + + | 2025-03-24 11:15:32 | Cellulitis of right orbit | [facility] | + + + + | 2025-03-24 11:15:32 | Unspecified systolic | [facility] | | | (congestive) heart failure | | | | ([facility] V24, [facility] V28) | | + + + + Procedures No information. Results/Labs +--------+--------+ +---------+--------+---------+ | test | date | facility | value | unit | notes | +--------+--------+ +---------+--------+---------+ + + | Result panel 1 | + + + + + +--------+ + + | WBC # Bld | 2025-03-18 | | 6.95 | (missing) | (missing) | | Auto | 17:37:07 | [facility] | | | | | | | [...] 3 | + + + + + +-------+ [...] 4 | + + + + + +-------+ [...] 5 | + + + + + +-------+ [...] 6 | + + + + + +------+---------+ + | Glucose | 2025-03-18 | | 99 | mg/dL | (missing) | | [facility] | 17:37:07 | [facility] | [facility] | | | | + + + +------+---------+ + + + | Result panel 7 | + + + + + +------+---------+ + | BUN | 2025-03-18 | | 22 | mg/dL | (missing) | | [facility] | 17:37:07 | [facility] | [facility] | | | | + + + +------+---------+ + + + | Result panel 8 | + + + + + +--------+---------+ + | Creat | 2025-03-18 | | 0.92 | mg/dL | (missing) | | [facility] | 17:37:07 | [facility] | | | | + + + +--------+---------+ + + + | Result panel 9 [...] 10 | + + + + + +---------+ [...] 4.3 | (missing) | (missing) | | [facility] | 17:37:07 | [facility] | | | | + + + +-------+ + + + + | Result panel 14 | + + + + + +------+ [...] 15 | + + + + + +------+ + + | CO2 | 2025-03-18 | | 33 | (missing) | (missing) | | [facility] | 17:37:07 | [facility] | | | | + + + +------+ + + + + | Result panel 16 | + + + + + +-------+ [...] 17 | + + + + + +-------+---------+ [...] +-------+---------+ + + + | Result panel 18 | + + + + + +-------+ + + | Prot | 2025-03-18 | | 6.8 | (missing) | (missing) | | [facility] | 17:37:07 [...] 2.7 | (missing) | (missing) | | [facility] | 17:37:07 [...] 22 | + + + + + +-------+---------+ + | Bilirub | 2025-03-18 | | 0.3 | mg/dL | (missing) | | [facility] | 17:37:07 | [facility] | | | | + + + +-------+---------+ + + + | Result panel 23 | + + + + + +--------+ + + | Hgb | 2025-03-18 | | 11.3 | (missing) | (missing) | | [facility] | 17:37:07 | [facility] | | | | + + + +--------+ + + + + | Result panel 24 | + + + + + +------+ + + | AST | 2025-03-18 | | 12 | (missing) | (missing) | | [facility] | 17:37:07 | [facility] | | | | + + + +------+ + + + + | Result panel 25 | + + + + + +------+ + + | ALT | 2025-03-18 | | 21 | (missing) | (missing) | | [facility] | 17:37:07 | [facility] | [facility] | | | | | | | [...] 31 | + + + + + +-------+ [...] | + + + +--------+ + + Social History +--------+ + + [...] lb | + + + +---------+ | 2025-03-18 [...] d | | | + + + +---------+"
[2025-05-05] MEDS ORDERED: AMOX TR-K CLV1 EAC1 PO (06:34)
[2025-05-05] MEDS ORDERED: AMOXICILLIN/CLAVULANATE K 875 MG HOME.PACK PO ONE (06:45)
[2025-05-05 06:48] VITALS: BP 158/100
== END 2025-05-05 06:49 | disposition home or self-care (01) ==
LOC: ED 05:48
DX: K02.9 Dental caries, unspecified (principal); E11.9 Type 2 diabetes mellitus without complications; I11.0 Hypertensive heart disease with heart failure; I50.9 Heart failure, unspecified; I25.2 Old myocardial infarction; F17.200 Nicotine dependence, unspecified, uncomplicated; Z79.899 Other long term (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
CPT/HCPCS: 99282

== ENCOUNTER 2025-06-01 08:37 | Emergency (ER) | payer MEDICARE ==
[~2025-06-01] VITALS: Ht 162.6 cm; Wt 53.1 kg
--- OUTSIDE RECORDS SUMMARY | ~2025-06-01 | XMS | Continuity of Care Document ---
Demographics + + + | Address | [address] | | | [place] [address] | + + + | Preferred Language | Unknown | + + + | Marital Status | Never | + + + | Jainism Affiliation | Unknown | + + + | Race | White | + + + | Ethnic Group | Not or | + + + Author + + + | Author | [facility] | + + + | Organization | [facility] | + + + | Address | [address] | | | [place] [address] | + + + | Phone | | + + + Care Team Providers + + + + | Care Automatic Presser Name | Role | Phone | + + + + Unavailable | Unavailable | + + + + Unavailable | Unavailable | + + + + Allergies No information. Encounters No information. Functional Status No information. Immunizations + + + + | date | description | facility | + + + + | (no date) | Tdap | [facility] | | | | [facility] | + + + + Medications + + + + | date | description | facility | + + + + | (no date) | ONDANSETRON | [facility] | | | | [facility] | + + + + | (no date) | EMPAGLIFLOZIN | [facility] | | | | [facility] | + + + + | (no date) | DOXYCYCLINE HYCLATE | [facility] | | | | [facility] | + + + + | (no date) | CEPHALEXIN | [facility] | | | | [facility] | + + + + | (no date) | Erythromycin Base | [facility] | | | | [facility] | + + + + | (no date) | Oseltamivir Phosphate | [facility] | | | | [facility] | + + + + | (no date) | PIMOZIDE | [facility] | | | | [facility] | + + + + | (no date) | SPIRONOLACTONE | [facility] | | | | [facility] | + + + + | (no date) | HALOPERIDOL | [facility] | | | | [facility] | + + + + | (no date) | LISINOPRIL | [facility] | | | | [facility] | + + + + | (no date) | HYDROCHLOROTHIAZIDE | [facility] | | | | [facility] | + + + + | 2025-04-18 00:00 | AMOXICILLIN/POTASSIUM CLAV | [facility] | | | | [facility] | + + + + | 2025-05-05 00:00 | AMOXICILLIN/POTASSIUM CLAV | [facility] | | | | [facility] | + + + + | (no date) | METOPROLOL TARTRATE | [facility] | | | | [facility] | + + + + | (no date) | ONDANSETRON | [facility] | | | | [facility] | + + + + | (no date) | LOSARTAN POTASSIUM | [facility] | | | | [facility] | + + + + Problems + + + + | date | description | facility | + + + + | 2025-03-18 00:00 | Abscess of left eyelid | [facility] | | | | [facility] | + + + + | 2025-03-18 00:00 | Cellulitis of right | [facility] | | | orbital region | [facility] | + + + + | 2025-03-19 [...] V28) | | + + + + | 2025-04-21 00:00 | Chest pain | [facility] | | | | [facility] | + + + + | 2025-04-24 00:00 | Strain of neck muscle | [facility] | | | | [facility] | + + + + | 2025-04-26 00:00 | Methamphetamine use | [facility] | | | | 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 Results/Labs +--------+--------+ +---------+--------+---------+ | test | date | facility | value | unit | notes | +--------+--------+ +---------+--------+---------+ + + | Result panel 1 | + + + + + +--------+ + + | WBC # Bld | 2025-03-18 | | 6.95 | (missing) | (missing) | | Auto | 17:37:07 | [facility] | | | | + + + +--------+ + + + + | Result panel 2 | + + + + + +--------+ + + | RBC # Bld | 2025-03-18 | | 4.07 | (missing) | (missing) | | Auto | 17:37:07 | [facility] | | | | + + + +--------+ + + + + | Result panel 3 | + + + + + +--------+ + + | Hgb | 2025-03-18 | | 11.3 | (missing) | (missing) | | Bld-mCnc | 17:37:07 | [facility] | | | | + + + +--------+ + + + + | Result panel 4 | + + + + + +--------+ + + | Hct VFr.DF | 2025-03-18 | | 36.0 | (missing) | (missing) | | Bld Auto | 17:37:07 | [facility] | | | | + + + +--------+ + + + + | Result panel 5 | + + + + + +--------+ + + | RBC Auto | 2025-03-18 | | 88.5 | (missing) | (missing) | | | 17:37:07 | [facility] | | | | + + + +--------+ + + + + | Result panel 6 | + + + + + +--------+ + + | MCH RBC Qn | 2025-03-18 | | 27.8 | (missing) | (missing) | | Auto | 17:37:07 | [facility] | | | | + + + +--------+ + + + + | Result panel 7 | + + + + + +--------+ + + | MCHC RBC | 2025-03-18 | | 31.4 | (missing) | (missing) | | Auto-EntMCnc | 17:37:07 | [facility] | | | | + + + +--------+ + + + + | Result panel 8 | + + + + + +-------+ + + | Platelet # | 2025-03-18 | | 202 | (missing) | (missing) | | Bld Auto | 17:37:07 | [facility] | | | | + + + +-------+ + + + + | Result panel 9 | + + + + + +--------+ + + | Neutrophils | 2025-03-18 | | 73.4 | (missing) | (missing) | | NFr Bld | 17:37:07 | [facility] | | | | | Auto | [facility] | | | | + + + +--------+ + + + + | Result panel 10 | + + + + + +--------+ + + | Lymphocytes | 2025-03-18 | | 10.6 | (missing) | (missing) | | NFr Bld | 17:37:07 | [facility] | | | | | Auto | [facility] | | | | + + + +--------+ + + + + | Result panel 11 | + + + + + +-------+ + + | Monocytes | 2025-03-18 | | 9.4 | (missing) | (missing) | | NFr Bld Auto | 17:37:07 | [facility] | | | | + + + +-------+ + + + + | Result panel 12 | + + + + + +-------+ + + | Eosinophil | 2025-03-18 | | 5.8 | (missing) | (missing) | | NFr Bld Auto | 17:37:07 | [facility] | | | | + + + +-------+ + + + + | Result panel 13 | + + + + + +-------+ + + | Basophils | 2025-03-18 | | 0.7 | (missing) | (missing) | | NFr Bld Auto | 17:37:07 | [facility] | | | | + + + +-------+ + + + + | Result panel 14 | + + + + + +------+---------+ + | Glucose | 2025-03-18 | | 99 | mg/dL | (missing) | | [facility] | 17:37:07 | [facility] | | | | + + + +------+---------+ + + + | Result panel 15 | + + + + + +------+---------+ + | BUN | 2025-03-18 | | 22 | mg/dL | (missing) | | [facility] | 17:37:07 | [facility] | | | | + + + +------+---------+ + + + | Result panel 16 | + + + + + +--------+---------+ + | Creat | 2025-03-18 | | 0.92 | mg/dL | (missing) | | SerPl-mCnc | 17:37:07 | [facility] | | | | | | | - | | | | | | [facility] | | | | + + + +--------+---------+ + + + | Result panel 17 | + + + + + +------+ + + | eGFRcr | 2025-03-18 | | 98 | (missing) | (missing) | | SerPlBld | 17:37:07 | [facility] | | | | | CKD-EPI 2020 | | - | | | | | | [facility] | | | | + + + +------+ + + + + | Result panel 18 | + + + + + +---------+ + + | BUN/Creat | 2025-03-18 | | 23.91 | (missing) | (missing) | | SerPl | 17:37:07 | [facility] | | | | + + + +---------+ + + + + | Result panel 19 | + + + + + +-------+ + + | Sodium | 2025-03-18 | | 135 | (missing) | (missing) | | SerPl-sCnc | 17:37:07 | [facility] | | | | + + + +-------+ + + + + | Result panel 20 | + + + + + +-------+ + + | Potassium | 2025-03-18 | | 4.3 | (missing) | (missing) | | SerPl-sCnc | 17:37:07 | [facility] | | | | + + + +-------+ + + + + | Result panel 21 | + + + + + +------+ + + | Chloride | 2025-03-18 | | 97 | (missing) | (missing) | | SerPl-sCnc | 17:37:07 | [facility] | | | | + + + +------+ + + + + | Result panel 22 | + + + + + +------+ + + | CO2 | 2025-03-18 | | 33 | (missing) | (missing) | | [facility] | 17:37:07 | [facility] | | | | + + + +------+ + + + + | Result panel 23 | + + + + + +-------+ + + | Anion Gap | 2025-03-18 | | 9.3 | (missing) | (missing) | | SerPl | 17:37:07 | [facility] | | | | | Calculated.4 | [facility]-s[facility]nc [facility] | | | | + + + +-------+ + + + + | Result panel 24 | + + + + + +-------+---------+ + | Calcium | 2025-03-18 | | 8.9 | mg/dL | (missing) | | SerPl-mCnc | 17:37:07 | [facility] | | | | + + + +-------+---------+ + + + | Result panel 25 | + + + + + +-------+ + + | Prot | 2025-03-18 | | 6.8 | (missing) | (missing) | | [facility] | 17:37:07 | [facility] | | | | + + + +-------+ + + + + | Result panel 26 | + + + + + +-------+ + + | Albumin | 2025-03-18 | | 2.7 | (missing) | (missing) | | [facility] | 17:37:07 | [facility] | | | | + + + +-------+ + + + + | Result panel 27 | + + + + + +-------+ + + | Globulin | 2025-03-18 | | 4.1 | (missing) | (missing) | | Ser-mCnc | 17:37:07 | [facility] | | | | + + + +-------+ + + + + | Result panel 28 | + + + + + +--------+ + + | | 2025-03-18 | | 0.66 | (missing) | (missing) | | Albumin/Glob | 17:37:07 | [facility] | | | | | SerPl | [facility] | | | | + + + +--------+ + + + + | Result panel 29 | + + + + + +-------+---------+ + | Bilirub | 2025-03-18 | | 0.3 | mg/dL | (missing) | | [facility] | 17[facility]37[facility]07 | [facility] | | | | + + + +-------+---------+ + + + | Result panel 30 | + + + + + +------+ + + | AST | 2025-03-18 | | 12 | (missing) | (missing) | | [facility]Pl-[facility] | 17:37:07 | [facility] | | | | + + + +------+ + + + + | Result panel 31 | + + + + + +------+ + + | ALT | 2025-03-18 | | 21 | (missing) | (missing) | | [facility] | 17:37:07 | [facility] | | | | + + + +------+ + + + + | Result panel 32 | + + + + + +-------+ + + | ALP | 2025-03-18 | | 134 | (missing) | (missing) | | SerPl-cCnc | 17:37:07 | [facility] | | | | + + + +-------+ + + + + | Result panel 33 | + + + + + +--------+ + + | WBC # Bld | 2025-04-21 | | 5.83 | (missing) | (missing) | | Auto | 21:37:07 | [facility] | | | | + + + +--------+ + + + + | Result panel 34 | + + + + + +--------+ + + | Lymphocytes | 2025-04-21 | | 15.1 | (missing) | (missing) | | NFr Bld | 21:37:07 | [facility] | | | | | Auto | [facility] | | | | + + + +--------+ + + + + | Result panel 35 | + + + + + +--------+ + + | Monocytes | 2025-04-21 | | 10.3 | (missing) | (missing) | | NFr Bld Auto | 21:37:07 | [facility] | | | | + + + +--------+ + + + + | Result panel 36 | + + + + + +--------+ + + | Eosinophil | 2025-04-21 | | 12.2 | (missing) | (missing) | | NFr Bld Auto | 21:37:07 | [facility] | | | | + + + +--------+ + + + + | Result panel 37 | + + + + + +-------+ + + | Basophils | 2025-04-21 | | 1.0 | (missing) | (missing) | | NFr Bld Auto | 21:37:07 | [facility] | | | | + + + +-------+ + + + + | Result panel 38 | + + + + + +-------+---------+ + | Glucose | 2025-04-21 | | 115 | mg/dL | (missing) | | [facility] | 21[facility]37:07 | [facility] | | | | + + + +-------+---------+ + + + | Result panel 39 | + + + + + +------+---------+ + | BUN | 2025-04-21 | | 30 | mg/dL | (missing) | | [facility] | 21[facility]37:07 | [facility] | | | | + + + +------+---------+ + + + | Result panel 40 | + + + + + +--------+---------+ + | Creat | 2025-04-21 | | 1.11 | mg/dL | (missing) | | [facility] | 21:37:07 | [facility] | | | | | | | - | | | | | | [facility] | | | | + + + +--------+---------+ + + + | Result panel 41 | + + + + + +------+ + + | eGFRcr | 2025-04-21 | | 78 | (missing) | (missing) | | SerPlBld | 21:37:07 | [facility] | | | | | CKD-EPI 2020 | [facility] | | | | + + + +------+ + + + + | Result panel 42 | + + + + + +---------+ + + | BUN/Creat | 2025-04-21 | | 27.02 | (missing) | (missing) | | SerPl | 21:37:07 | [facility] | | | | + + + +---------+ + + + + | Result panel 43 | + + + + + +-------+ + + | Sodium | 2025-04-21 | | 139 | (missing) | (missing) | | SerPl-sCnc | 21:37:07 | [facility] | | | | + + + +-------+ + + + + | Result panel 44 | + + + + + +--------+ + + | RBC # Bld | 2025-04-21 | | 3.98 | (missing) | (missing) | | Auto | 21:37:07 | [facility] | | | | + + + +--------+ + + + + | Result panel 45 | + + + + + +-------+ + + | Potassium | 2025-04-21 | | 4.1 | (missing) | (missing) | | SerPl-sCnc | 21:37:07 | [facility] | | | | + + + +-------+ + + + + | Result panel 46 | + + + + + +-------+ + + | Chloride | 2025-04-21 | | 104 | (missing) | (missing) | | SerPl-sCnc | 21:37:07 | [facility] | | | | + + + +-------+ + + + + | Result panel 47 | + + + + + +------+ + + | CO2 | 2025-04-21 | | 25 | (missing) | (missing) | | SerPl-sCnc | 21:37:07 | [facility] | | | | + + + +------+ + + + + | Result panel 48 | + + + + + +--------+ + + | Anion Gap | 2025-04-21 | | 14.1 | (missing) | (missing) | | SerPl | 21:37:07 | [facility] | | | | | Calculated.4 | [facility] | | | | + + + +--------+ + + + + | Result panel 49 | + + + + + +-------+---------+ + | Calcium | 2025-04-21 | | 8.4 | mg/dL | (missing) | | [facility] | 21:37:07 | [facility] | | | | + + + +-------+---------+ + + + | Result panel 50 | + + + + + +-------+ + + | Prot | 2025-04-21 | | 6.6 | (missing) | (missing) | | SerPl-mCnc | 21:37:07 | [facility] | | | | + + + +-------+ + + + + | Result panel 51 | + + + + + +-------+ + + | Albumin | 2025-04-21 | | 2.8 | (missing) | (missing) | | SerPl-mCnc | 21:37:07 | [facility] | | | | + + + +-------+ + + + + | Result panel 52 | + + + + + +-------+ + + | Globulin | 2025-04-21 | | 3.8 | (missing) | (missing) | | Ser-beata | 21:37:07 | [facility] | | | | + + + +-------+ + + + + | Result panel 53 | + + + + + +--------+ + + | | 2025-04-21 | | 0.74 | (missing) | (missing) | | Albumin/Glob | 21:37:07 | [facility] | | | | | SerPl | [facility] | | | | + + + +--------+ + + + + | Result panel 54 | + + + + + +-------+---------+ + | Bilirub | 2025-04-21 | | 0.6 | mg/dL | (missing) | | SerPl-mCnc | 21:37:07 | [facility] | | | | + + + +-------+---------+ + + + | Result panel 55 | + + + + + +--------+ + + | Hgb | 2025-04-21 | | 11.0 | (missing) | (missing) | | Bld-mCbeata | 21:37:07 | [facility] | | | | + + + +--------+ + + + + | Result panel 56 | + + + + + +------+ + + | AST | 2025-04-21 | | 77 | (missing) | (missing) | | SerPl-cCnc | 21:37:07 | [facility] | | | | + + + +------+ + + + + | Result panel 57 | + + + + + +------+ + + | ALT | 2025-04-21 | | 50 | (missing) | (missing) | | SerPl-cCnc | 21:37:07 | [facility] | | | | + + + +------+ + + + + | Result panel 58 | + + + + + +-------+ + + | ALP | 2025-04-21 | | 135 | (missing) | (missing) | | [facility] | 21:37:07 | [facility] | | | | + + + +-------+ + + + + | Result panel 59 | + + + + + +--------+ + + | Troponin I | 2025-04-21 | | 17.2 | (missing) | (missing) | | SerPl | 21:37:07 | [facility] | | | | | HS-mCnc | [facility] - | | | | | [facility] | | | | + + + +--------+ + + + + | Result panel 60 | + + + + + +--------+ + + | Hct VFr.DF | 2025-04-21 | | 34.3 | (missing) | (missing) | | Bld Auto | 21:37:07 | [facility] | | | | | [facility] - [facility] | | | | + + + +--------+ + + + + | Result panel 61 | + + + + + +--------+ + + | RBC Auto | 2025-04-21 | | 86.2 | (missing) | (missing) | | | 21:37:07 | [facility] | | | | + + + +--------+ + + + + | Result panel 62 | + + + + + +--------+ + + | MCH RBC Qn | 2025-04-21 | | 27.6 | (missing) | (missing) | | Auto | 21:37:07 | [facility] | | | | + + + +--------+ + + + + | Result panel 63 | + + + + + +--------+ + + | MCHC RBC | 2025-04-21 | | 32.1 | (missing) | (missing) | | Auto-EntMCnc | :37:07 | [facility] | | | | + + + +--------+ + + + + | Result panel 64 | + + + + + +-------+ + + | Platelet # | 2025-04-21 | | 231 | (missing) | (missing) | | Bld Auto | 21:37:07 | [facility] | | | | + + + +-------+ + + + + | Result panel 65 | + + + + + +--------+ + + | Neutrophils | 2025-04-21 | | 61.2 | (missing) | (missing) | | NFr Bld | 21:37:07 | [facility] | | | | | Auto | [facility] | | | | + + + +--------+ + + + + | Result panel 66 | + + + + + +-------+ + + | Glucose | 2025-04-25 | | 124 | (missing) | (missing) | | Bld-mCnc | 23:29:07 | [facility] | [facility] | | | | + + + +-------+ + + Social History +--------+ + + | date | description | facility | +--------+ + + Vital Signs + + + +---------+ | date | measurement | value | units | + + + +---------+ | 2025-03-18 00:00 | BMI | 18.7 | kg/m2 | + + + +---------+ | 2025-03-18 00:00 | BP_diastolic | 83 | mmHg | + + + +---------+ | 2025-03-18 00:00 | BP_systolic | 151 | mmHg | + + + +---------+ | 2025-03-18 00:00 | heart_rate | 66 | /min | + + + +---------+ | 2025-03-18 00:00 | height_metric | 162.56 | cm | + + + +---------+ | 2025-03-18 00:00 | height_standard | 64 | in | + + + +---------+ | 2025-03-18 00:00 | o2_saturation | 100 | % | + + + +---------+ | 2025-03-18 00:00 | respiration_rate | 17 | /min | + + + +---------+ | 2025-03-18 00:00 | | 98.1 | F | | | temperature_standar | | | | | d | | | + + + +---------+ | 2025-03-18 00:00 | weight_metric | 49.501 | kg | + + + +---------+ | 2025-03-18 00:00 | weight_standard | 109.131 | lb | + + + +---------+ | 2025-04-17 00:00 | BMI | 18.5 | kg/m2 | + + + +---------+ | 2025-04-17 00:00 | BP_diastolic | 68 | mmHg | + + + +---------+ | 2025-04-17 00:00 | BP_systolic | 113 | mmHg | + + + +---------+ | 2025-04-17 00:00 | heart_rate | 66 | /min | + + + +---------+ | 2025-04-17 00:00 | height_metric | 162.56 | cm | + + + +---------+ | 2025-04-17 00:00 | height_standard | 64 | in | + + + +---------+ | 2025-04-17 00:00 | o2_saturation | 99 | % | + + + +---------+ | 2025-04-17 00:00 | respiration_rate | 20 | /min | + + + +---------+ | 2025-04-17 00:00 | | 97.3 | F | | | temperature_standar | | | | | d | | | + + + +---------+ | 2025-04-17 00:00 | weight_metric | 48.999 | kg | + + + +---------+ | 2025-04-17 00:00 | weight_standard | 108.025 | lb | + + + +---------+ | 2025-04-18 00:00 | BP_diastolic | 83 | mmHg | + + + +---------+ | 2025-04-18 00:00 | BP_systolic | 151 | mmHg | + + + +---------+ | 2025-04-18 00:00 | heart_rate | 90 | /min | + + + +---------+ | 2025-04-18 00:00 | o2_saturation | 97 | % | + + + +---------+ | 2025-04-18 00:00 | respiration_rate | 16 | /min | + + + +---------+ | 2025-04-18 00:00 | | 97.6 | F | | | temperature_standar | | | | | d | | | + + + +---------+ | 2025-04-21 00:00 | BMI | 18.5 | kg/m2 | + + + +---------+ | 2025-04-21 00:00 | height_metric | 162.56 | cm | + + + +---------+ | 2025-04-21 00:00 | height_standard | 64 | in | + + + +---------+ | 2025-04-21 00:00 | weight_metric | 48.999 | kg | + + + +---------+ | 2025-04-21 00:00 | weight_standard | 108.025 | lb | + + + +---------+ | 2025-04-22 00:00 | BP_diastolic | 80 | mmHg | + + + +---------+ | 2025-04-22 00:00 | BP_systolic | 128 | mmHg | + + + +---------+ | 2025-04-22 00:00 | heart_rate | 73 | /min | + + + +---------+ | 2025-04-22 00:00 | o2_saturation | 98 | % | + + + +---------+ | 2025-04-22 00:00 | respiration_rate | 20 | /min | + + + +---------+ | 2025-04-22 00:00 | | 98 | F | | | temperature_standar | | | | | d | | | + + + +---------+ | 2025-04-24 00:00 | BMI | 20.6 | kg/m2 | + + + +---------+ | 2025-04-24 00:00 | BP_diastolic | 92 | mmHg | + + + +---------+ | 2025-04-24 00:00 | BP_systolic | 134 | mmHg | + + + +---------+ | 2025-04-24 00:00 | heart_rate | 74 | /min | + + + +---------+ | 2025-04-24 00:00 | height_metric | 162.56 | cm | + + + +---------+ | 2025-04-24 00:00 | height_standard | 64 | in | + + + +---------+ | 2025-04-24 00:00 | o2_saturation | 97 | % | + + + +---------+ | 2025-04-24 00:00 | respiration_rate | 18 | /min | + + + +---------+ | 2025-04-24 00:00 | | 98.6 | F | | | temperature_standar | | | | | d | | | + + + +---------+ | 2025-04-24 00:00 | weight_metric | 54.499 | kg | + + + +---------+ | 2025-04-24 00:00 | weight_standard | 120.150 | lb | + + + +---------+ | 2025-04-25 00:00 | BMI | 20.1 | kg/m2 | + + + +---------+ | 2025-04-25 00:00 | height_metric | 162.56 | cm | + + + +---------+ | 2025-04-25 00:00 | height_standard | 64 | in | + + + +---------+ | 2025-04-25 00:00 | weight_metric | 53.201 | kg | + + + +---------+ | 2025-04-25 00:00 | weight_standard | 117.287 | lb | + + + +---------+ | 2025-04-26 00:00 | BP_diastolic | 98 | mmHg | + + + +---------+ | 2025-04-26 00:00 | BP_systolic | 149 | mmHg | + + + +---------+ | 2025-04-26 00:00 | heart_rate | 87 | /min | + + + +---------+ | 2025-04-26 00:00 | o2_saturation | 97 | % | + + + +---------+ | 2025-04-26 00:00 | respiration_rate | 15 | /min | + + + +---------+ | 2025-04-26 00:00 | | 96.7 | F | | | temperature_standar | | | | | d | | | + + + +---------+ | 2025-05-05 00:00 | BMI | 22.7 | kg/m2 | + + + +---------+ | 2025-05-05 00:00 | BP_diastolic | 100 | mmHg | + + + +---------+ | 2025-05-05 00:00 | BP_systolic | 158 | mmHg | + + + +---------+ | 2025-05-05 00:00 | heart_rate | 73 | /min | + + + +---------+ | 2025-05-05 00:00 | height_metric | 162.56 | cm | + + + +---------+ | 2025-05-05 00:00 | height_standard | 64 | in | + + + +---------+ | 2025-05-05 00:00 | o2_saturation | 98 | % | + + + +---------+ | 2025-05-05 00:00 | respiration_rate | 18 | /min | + + + +---------+ | 2025-05-05 00:00 | | 97.5 | F | | | temperature_standar | | | | | d | | | + + + +---------+ | 2025-05-05 00:00 | weight_metric | 59.999 | kg | + + + +---------+ | 2025-05-05 00:00 | weight_standard | 132.275 | lb | + + + +---------+"
[2025-06-01] MEDS ORDERED: AMOX TR-K CLV1 EAC1 PO (08:57)
[2025-06-01] MEDS ORDERED: HYDROCORTISONE59 ML TOP (08:57)
[2025-06-01] MEDS ORDERED: PANTOPRAZOLE SO40 MG PO (08:59)
[2025-06-01] MEDS ORDERED: AMOXICILLIN500 MG PO (09:06)
[2025-06-01 09:12] VITALS: BP 173/98
== END 2025-06-01 09:12 | disposition home or self-care (01) ==
LOC: ED 08:37
DX: K08.89 Other specified disorders of teeth and supporting structures (principal); I11.0 Hypertensive heart disease with heart failure; I50.9 Heart failure, unspecified; E11.9 Type 2 diabetes mellitus without complications; F17.200 Nicotine dependence, unspecified, uncomplicated; Z79.899 Other long term (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
CPT/HCPCS: 99282

== ENCOUNTER 2025-06-04 16:21 | Emergency (ER) | payer MEDICARE ==
[~2025-06-04] VITALS: Ht 162.6 cm; Wt 48.0 kg
[~2025-06-04 16:21] MED LIST changes: +AMOXICILLIN500 MG PO; +HYDROCORTISONE59 ML TOP; +PANTOPRAZOLE SO40 MG PO
[2025-06-05 03:56] VITALS: BP 165/86
== END 2025-06-05 03:57 | disposition home or self-care (01) ==
LOC: ED 16:21
DX: L30.9 Dermatitis, unspecified (principal); E11.9 Type 2 diabetes mellitus without complications; F17.200 Nicotine dependence, unspecified, uncomplicated; Z88.1 Allergy status to other antibiotic agents
CPT/HCPCS: 99282

== ENCOUNTER 2025-06-06 01:33 | Emergency (ER) | payer MEDICARE ==
[~2025-06-06] VITALS: Ht 162.6 cm; Wt 48.0 kg
[2025-06-06 02:03] VITALS: BP 147/101
== END 2025-06-06 02:03 | disposition home or self-care (01) ==
LOC: ED 01:33
DX: R21 Rash and other nonspecific skin eruption (principal); I10 Essential (primary) hypertension; E11.9 Type 2 diabetes mellitus without complications; F17.200 Nicotine dependence, unspecified, uncomplicated; Z88.1 Allergy status to other antibiotic agents
CPT/HCPCS: 99282

== ENCOUNTER 2025-06-08 02:27 | Emergency (ER) | payer MEDICARE ==
[~2025-06-08] VITALS: Ht 162.6 cm; Wt 52.0 kg
[2025-06-08] MEDS ORDERED: TRIAMCINOLONE A15 G3 TOP (02:54)
[2025-06-08 03:01] VITALS: BP 175/98
== END 2025-06-08 03:01 | disposition home or self-care (01) ==
LOC: ED 02:27
DX: L30.9 Dermatitis, unspecified (principal); I11.0 Hypertensive heart disease with heart failure; F17.200 Nicotine dependence, unspecified, uncomplicated
CPT/HCPCS: 99283

== ENCOUNTER 2025-06-21 06:01 | Emergency (ER) | payer MEDICARE ==
[~2025-06-21] VITALS: Ht 162.6 cm; Wt 60.0 kg
[2025-06-21 07:46] VITALS: BP 159/78
== END 2025-06-21 07:48 | disposition home or self-care (01) ==
LOC: ED 06:01
DX: Q80.9 Congenital ichthyosis, unspecified (principal); F17.200 Nicotine dependence, unspecified, uncomplicated; E11.9 Type 2 diabetes mellitus without complications
CPT/HCPCS: 99283

== ENCOUNTER 2025-06-21 15:04 | Emergency (ER) | payer MEDICARE ==
[~2025-06-21] VITALS: Ht 162.6 cm; Wt 60.0 kg
[2025-06-21] MEDS ORDERED: ALBUTEROL SULFATE 8 GM HOME.PACK INH ONE ×2 (16:15)
[2025-06-21 16:35] VITALS: BP 167/107
== END 2025-06-21 16:35 | disposition home or self-care (01) ==
LOC: ED 15:04
DX: Q80.9 Congenital ichthyosis, unspecified (principal); E11.9 Type 2 diabetes mellitus without complications; I11.0 Hypertensive heart disease with heart failure; I50.9 Heart failure, unspecified; F17.200 Nicotine dependence, unspecified, uncomplicated; Z88.1 Allergy status to other antibiotic agents
CPT/HCPCS: 71045; 94640; 94664; 99283-25

== ENCOUNTER 2025-06-25 22:19 | Observation (INO) | payer MEDICARE ==
[~2025-06-25] VITALS: Ht 162.6 cm; Wt 51.2 kg
[2025-06-26] VITALS (7 sets, daily range): BP systolic 118–143; BP diastolic 73–82
[2025-06-26 00:54] LABS: BASOPHILS 0.1 % (0.2-1.2); EOSINOPHILS 0 % (0.8-7.0); LYMPHOCYTES 6.9 % (21.8-53.1); MCH 30.1 PG (25.7-32.2); MCHC 34.0 g/dL (32.3-36.5); MCV 88.6 fL (79.0-92.2); MONOCYTES 8.1 % (5.3-12.2); NEUTROPHILS 84.7 % (34.0-67.9); RBC 3.85 M/uL (4.63-6.08)
[2025-06-26 01:10] LABS: ALT (SGPT) 81.0 U/L (14-59); AST (SGOT) 188.0 U/L (15-37); GLOMERULAR FILTRATION RATE,EST 62.0 mL/min (>60); PROTEIN, TOTAL 6.9 g/dL (6.4-8.2); UREA NITROGEN 61.0 mg/dL (7-18)
[2025-06-26] MEDS ORDERED: LACTATED RINGER'S 1,000 ML IV ONE (03:00)
[2025-06-26] MEDS ORDERED: ACETAMINOPHEN 325 MG TAB PO PRN ×2 (03:15→08:30)
[2025-06-26] MEDS ORDERED: LACTATED RINGER'S 1,000 ML IV SCH ×2 (03:15→16:45)
[2025-06-26 03:44] LABS: CORONAVIRUS COVID-19 AG NEGATIVE (NEGATIVE)
--- NOTE | 2025-06-26 04:10 | NUR ---
PATIENT ARRIVES TO [facility] FLOOR VIA STRETCHER. PATIENT TRANSFERS SELF TO BED. PATIENT APPEARS TO BE ANXIOUS AND JITTERY. VERBAL REPORT RECEIVED FROM ED RN. PROVIDED SNACKS PER PATIENT REQUEST. PATIENT ORIENTED TO ROOM AND CALL LIGHT. ON TELE #7. BED ALARM ON FOR PATIENT SAFETY. CALL LIGHT IN REACH. IVF RUNNING AT THIS TIME.
--- NOTE | 2025-06-26 05:43 | NUR ---
PATIENT CALLS REQUESTING SIPS OF WATER. THIS RN PROVIDED PATIENT WITH WATER. BED ALARM ON FOR PATIENT SAFETY. CALL LIGHT IN REACH.
--- NOTE | 2025-06-26 06:16 | NUR ---
PATIENT USES CALL LIGHT. PATIENT GIVEN FRESH ICE WATER. URINE SAMPLE COLLECTED. BED ALARM ON FOR PATIENT SAFETY. CALL LIGHT WITHIN REACH.
--- NOTE | 2025-06-26 06:16 | NUR ---
URINE SAMPLE COLLECTED AND SENT TO LAB.
[2025-06-26 06:20] LABS: BLOOD/HGB, URINE NEGATIVE (Negative); KETONE, URINE NEGATIVE (Negative); LEUK ESTERASE, URINE NEGATIVE (negative); NITRITE, URINE NEGATIVE (negative)
[2025-06-26 06:41] LABS: AMPHETAMINES, URINE POSITIVE (NEGATIVE); BARBITURATES, URINE NEGATIVE (NEGATIVE); BENZODIAZEPINE, URINE NEGATIVE (NEGATIVE); CANNABINOID, URINE NEGATIVE (NEGATIVE); COCAINE, URINE NEGATIVE (NEGATIVE); ECSTASY, URINE NEGATIVE (NEGATIVE); FENTANYL, URINE NEGATIVE (NEGATIVE); METHADONE, URINE NEGATIVE (NEGATIVE); OPIATES, URINE NEGATIVE (NEGATIVE); OXYCODONE, URINE NEGATIVE (NEGATIVE); PHENCYCLIDINE, URINE NEGATIVE (NEGATIVE)
[2025-06-26] MEDS ORDERED: NICOTINE POLACRILEX 2 MG GUM MM PRN (08:30)
[2025-06-26] MEDS ORDERED: PROCHLORPERAZINE EDISYLATE 10 MG/2 ML VIAL IV PRN (08:30)
--- NOTE | 2025-06-26 08:39 | NUR ---
Patient resting in bed, eyes closed, respirations non labored. Patient has no acute distress. IV fluids infusing per order. Call light within reach.
[2025-06-26] MEDS ORDERED: PANTOPRAZOLE SODIUM 40 MG TABEC PO SCH (09:00)
[2025-06-26 09:37] LABS: GLOMERULAR FILTRATION RATE,EST 86.0 mL/min (>60); UREA NITROGEN 48.0 mg/dL (7-18)
--- NOTE | 2025-06-26 09:46 | NUR ---
Patient is awake, alert and oriented x3. Patient tolerated breakfast well, good appetite noted. Patient's has swollen, weathered hands. Patient has notable difficulty grasping items to feed self, pt uses his forearms to bring items to mouth for consumption. Head of bed elevated.
--- NOTE | 2025-06-26 10:13 | NUR ---
CLEANED UP PT AND BED FOLLOWING BREAKFAST. PARTIAL LINEN CHANGE AND A WARM WASH CLOTH ON FACE AND HANDS. PT HAS SORE HANDS, CRACKED SKIN. PT ASKED FOR PILLOWS UNDER HIS ARMS AND A WARM BLANKET. PT HAS FRESH ICE WATER AND HIS CALL LIGHT NEXT TO HIS BED.
[2025-06-26] MEDS ORDERED: PETROLATUM 5 GM PKT TOP SCH (10:39)
[2025-06-26] MEDS ORDERED: risperiDONE 1 MG TAB PO SCH (10:39)
[2025-06-26] MEDS ORDERED: PANTOPRAZOLE SO40 MG PO (11:05)
--- NOTE | 2025-06-26 11:05 | NUR ---
MED REC COMPLETE
--- NOTE | 2025-06-26 11:53 | NUR ---
PATIENT IS CURRENTLY UNHOUSED. WAS STAYING AT THE [employer] [facility] IN [facility] PRIOR TO ARRIVAL. STATES HE FEELS HE NEEDS 24/7 CAREGIVING. 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 TALKS OF HIS NEED TO GET TO [place] FOR SOMETHING BUT UNCLEAR WHAT THAT IS. STATES HE NEEDS A PCP, HE IS OK WITH GETTING ESTABLISHED WITH PCP IN [place]. WILL ASSIST WITH GETTING THAT SET UP PRIOR TO DC FROM FACILITY. CALLED [facility] AND SPOKE WITH PERRY CHERRY. PATIENT HAS NO DETENTION MEDICAID OR MEDICAID. HE DOES HAVE AN IN PERSON INTERVIEW ON 06/29/25 @ 1100 FOR SNAP BENEFITS.
[2025-06-26] MEDS ORDERED: PHARMACY RENAL DOSE ADJUSTMENT 1 DOSE MISC PO SCH (12:00)
--- NOTE | 2025-06-26 12:52 | NUR ---
Patient resting in bed listening to music, no acute distress. Patient requesting tylenol for generlaized pain. Tylenol 650mg po admin at this time. Fresh water provided. Patient has no further needs at this time.
--- NOTE | 2025-06-26 13:18 | NUR ---
cleaned up pt replacing gown and sheets and blankets following lunch. got pt apple juice and fresh ice water. call light within reach of pt.
--- NOTE | 2025-06-26 16:45 | NUR ---
MARITZA from Dr. Triana to continue LR @ 200ml/hr continuously.
--- NOTE | 2025-06-26 17:22 | NUR ---
Patient resting in bed, eyes closed, respirations non labored. Patient has no notable distress. IV fluids infusing per order.
--- NOTE | 2025-06-26 19:31 | NUR ---
VERBAL REPORT RECEIVED BY ADELINA ROSALES. SNACKS AND JUICE BROUGHT PER PATIENT REQUEST. BED ALARM ON FOR PATIENT SAFETY. PATIENT RESTING AWAKE IN BED, TV ON. CALL LIGHT WITHIN REACH.
--- NOTE | 2025-06-26 20:10 | NUR ---
PATIENT USED THE CALL LIGHT. IN TO THE ROOM. 1 PA TO THE BATHROOM. PATIENT VOIDED UNMEASURED AND HAD A BM. PATIENT WASHED HIS HANDS. PATIENT IS BACK IN BED. CHANGED GOWN DUE TO SOILED WITH CHOCOLATE PUDDING ALL OVER. CLEANED/WIPED AND DRIED SIDE TABLE AND ON THE FLOOR WITH LIQUID SPILLED AND FOOD. BED ALARM ACTIVATED FOR SAFETY. PATIENT HAS UNSTEADY GAIT.
[2025-06-26] MEDS ORDERED: MELATONIN 3 MG TAB PO PRN (21:00)
[2025-06-26] MEDS ORDERED: OLANZapine 2.5 MG TAB PO SCH (21:00)
--- NOTE | 2025-06-26 21:03 | NUR ---
PATIENT USED HIS CALL LIGHT TO LET US KNOW HE IS VERY DEHYDRATED AND WOULD LIKE SOMETHING TO EAT. ADVISED PATIENT I WILL SEE WHAT WE CAN GET HIM. ADVISED HIM THAT HE DID HAVE A FULL CUP OF ICE WATER NEXT TO HIM WELL. SPOKE TO PRIMARY NURSE OF PATIENT AND GOT HIM APPLE JUICE AND A SANDWHICH BOX. PATIENT MOVED UP IN BED. CALL LIGHT CORA BLOOM.
--- NOTE | 2025-06-26 21:55 | NUR ---
PATIENT RESTING IN BED AT THIS TIME EYES CLOSED, RESPIRATIONS EVEN AND UNLABORED. PATIENT RATES PAIN 10/10 IN HANDS, PRN PAIN MEDICATION GIVEN (SEE EMAR). PATIENT DOZES OFF IN AND OUT. BED ALARM ON FOR PATIENT SAFETY. LR RUNNING @200. CALL LIGHT WITHIN REACH.
--- NOTE | 2025-06-26 23:18 | NUR ---
PATIENT IS RESTING IS RESTING IN BED EYES CLOSED, BREATHING EVEN AND UNLABORED. CALL LIGHT WITHIN REACH.
--- NOTE | 2025-06-27 00:10 | NUR ---
PATIENT RESTING IN BED EYES CLOSED, RR EVEN AND UNLABORED. CPOX AT BEDSIDE READING SPO2 98%, 77 BPM. BED ALARM ON FOR PATIENT SAFETY. CALL LIGHT WITHIN REACH.
--- NOTE | 2025-06-27 00:13 | NUR ---
PATIENT RESTING IN BED EYES CLOSED, RR EVEN AND UNLABORED. BED ALARM ON FOR PATIENT SAFETY. CALL LIGHT WITHIN REACH.
--- NOTE | 2025-06-27 00:36 | NUR ---
PATIENT UP TO THE BATHROOM TO VOID AND SM BM. PATIENT IS BACK IN BED. ALARM ON FOR SAFETY.
--- NOTE | 2025-06-27 00:37 | NUR ---
BUCKLE ASSEMBLER IN THE ROOM WITH PATIENT. PATIENT REQUESTS SNACKS AND JUICE. THIS RN BRINGS PATIENT JUICE AND PUDDING PER PATIENT REQUEST. NO FURTHER NEEDS AT THIS TIME. CALL LIGHT WITHIN REACH.
--- NOTE | 2025-06-27 01:09 | NUR ---
PATIENT AWAKE IN BED AT THIS TIME. SNACKS PROVIDED PER PATIENT REQUEST. NO FURTHER NEEDS AT THIS TIME. BED ALARM ON FOR PATIENT SAFETY. CALL LIGHT WITHIN REACH.
--- NOTE | 2025-06-27 03:01 | NUR ---
PATIENT RESTING IN BED EYES CLOSED, RR EVEN AND UNLABORED. BED ALARM ON FOR PATIENT SAFETY. CALL LIGHT WITHIN REACH.
--- NOTE | 2025-06-27 04:08 | NUR ---
PATIENT RESTING IN BED EYES CLOSED. RR EVEN AN DUNLABORED. TELE #7 SR. BED ALARM ON FOR PATIENT SAFETY. CALL LIGHT WITHIN REACH.
[2025-06-27 05:14] VITALS: BP 138/80
[2025-06-27 05:17] VITALS: BP 138/80
[2025-06-27 05:26] LABS: BASOPHILS 0.5 % (0.2-1.2); EOSINOPHILS 2.7 % (0.8-7.0); LYMPHOCYTES 24.4 % (21.8-53.1); MCH 29.9 PG (25.7-32.2); MCHC 32.3 g/dL (32.3-36.5); MCV 92.4 fL (79.0-92.2); MONOCYTES 12.5 % (5.3-12.2); NEUTROPHILS 59.6 % (34.0-67.9); RBC 3.28 M/uL (4.63-6.08)
--- NOTE | 2025-06-27 05:33 | NUR ---
PATIENT ASSISTED TO BATHROOM VIA SBA. PATIENT SITTING BACK UP IN BED, SNACKS PROVIDED PER PATIENT REQUEST. BED ALARM ON FOR PATIENT SAFETY. CALL LIGHT WITHIN REACH.
[2025-06-27 05:50] LABS: ALT (SGPT) 61.0 U/L (14-59); AST (SGOT) 91.0 U/L (15-37); GLOMERULAR FILTRATION RATE,EST 103.0 mL/min (>60); PHOSPHORUS, INORGANIC 2.4 mg/dL (2.5-4.9); PROTEIN, TOTAL 5.4 g/dL (6.4-8.2); UREA NITROGEN 24.0 mg/dL (7-18)
--- NOTE | 2025-06-27 06:50 | NUR ---
PATIENT RESTING IN BED EYES CLOSED. RR EVEN AND UNLABORED. BED ALARM ON FOR PATIENT SAFETY. CALL LIGHT WITHIN REACH.
--- NOTE | 2025-06-27 07:38 | NUR ---
Patient resting in bed, eyes closed, respirations non labored. No distress at this time, personal supplies and call light within reach.
--- NOTE | 2025-06-27 08:28 | NUR ---
Patient awake watching tv, alert and oriented x3, no acute distress. VISUAL TRAINING AIDE changed bed linens for patient. IV fluids infusing per order, iv site is patent. Patient reports he slept well last night. Admin tylenol 650mg po at this time for reports of generalized pain.
--- NOTE | 2025-06-27 08:58 | NUR ---
PATIENT IS LAYING IN BED. PATIENT WAS ASSISTED SBA TO THE BATHROOM. PATIENT PREFORMED AM AND ORAL CARE. PATIENTS LINEN WAS CHANGED. PATIENTS CALL LIGHT IS WITHIN REACH AND NO FURTHER NEEDS AT THIS TIME.
[2025-06-27 09:05] VITALS: BP 168/88
[2025-06-27 09:10] VITALS: BP 168/88
[2025-06-27] MEDS ORDERED: OLANZAPINE2.5 MG PO (09:59)
--- NOTE | 2025-06-27 10:46 | NUR ---
PLAN FOR PATIENT DISCHARGE TODAY. PATIENT HAS BEEN REMOVED FROM [facility] AND [facility]. STATES HE WOULD LIKE TO GO TO [facility]. WILL HAVE PRESCRIPTION MEDICATIONS FILLED HERE PRIOR TO DC THEN WILL SEND PATIENT TO [facility] VIA [facility] AROUND 1-2 PM TODAY.
--- NOTE | 2025-06-27 11:12 | NUR ---
UR CLINICAL REVIEW: 2 MN FOR [facility]- PER RN MEETS OBS FOR [facility] WITH NEED FOR IV FLUID AND SERIAL LABS MEDICARE OBS 06/26/25 @ 0315 ORDER MATCHES REG PLAN TO DISCHARGE TODAY TO [facility]
--- NOTE | 2025-06-27 12:07 | NUR ---
Patient eating lunch at this time, no distress. Patient denies needs at this time. Personal supplies and call light within reach.
--- NOTE | 2025-06-27 12:28 | NUR ---
Assisted Pt with cleaning up room and opening containers. No other needs expressed by Pt. Call light left in reach.
[2025-06-27 13:08] VITALS: BP 164/89
== END 2025-06-27 13:20 | disposition home or self-care (01) ==
LOC: ED 22:19 → MS 06-26 03:15
PROVIDERS: Internal Medicine; ADMIT Internal Medicine; ATTEND Internal Medicine
DX: M62.82 Rhabdomyolysis (principal); L30.9 Dermatitis, unspecified; I11.0 Hypertensive heart disease with heart failure; I50.9 Heart failure, unspecified; E11.9 Type 2 diabetes mellitus without complications; F17.210 Nicotine dependence, cigarettes, uncomplicated; F15.20 Other stimulant dependence, uncomplicated; Z88.8 Allergy status to other drugs, medicaments and biological substances
CPT/HCPCS: 36415; 80048; 80053; 80307; 81003; 82550; 83735; 84100; 85025; 96360; 96361; 99284-25; A9270; G0378; J7121

== ENCOUNTER 2025-07-02 08:33 | Emergency (ER) | payer MEDICARE ==
[~2025-07-02] VITALS: Ht 162.6 cm; Wt 57.9 kg
[~2025-07-02 08:33] MED LIST changes: +OLANZAPINE2.5 MG PO
[2025-07-02] MEDS ORDERED: OLANZapine 10 MG TABDIS PO ONE (08:45)
[2025-07-02 08:58] VITALS: BP 173/103
[2025-07-02] MEDS ORDERED: DOXEPIN HCL10 MG PO (21:56)
== END 2025-07-02 09:01 | disposition home or self-care (01) ==
LOC: ED 08:33
DX: F45.8 Other somatoform disorders (principal); I10 Essential (primary) hypertension; I50.9 Heart failure, unspecified; F17.200 Nicotine dependence, unspecified, uncomplicated; Z79.899 Other long term (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; F15.129 Other stimulant abuse with intoxication, unspecified; Z59.00 Homelessness unspecified
CPT/HCPCS: 99284; A9270

== ENCOUNTER 2025-07-02 21:36 | Emergency (ER) | payer MEDICARE ==
[~2025-07-02] VITALS: Ht 162.6 cm; Wt 57.9 kg
[2025-07-02] MEDS ORDERED: DOXEPIN HCL10 MG PO (21:56)
[2025-07-02 22:02] VITALS: BP 157/102
== END 2025-07-02 22:08 | disposition home or self-care (01) ==
LOC: ED 21:36
DX: F22 Delusional disorders (principal); F15.10 Other stimulant abuse, uncomplicated; I11.0 Hypertensive heart disease with heart failure; I50.9 Heart failure, unspecified; E11.9 Type 2 diabetes mellitus without complications; F17.200 Nicotine dependence, unspecified, uncomplicated; Z79.899 Other long term (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; Z88.1 Allergy status to other antibiotic agents
CPT/HCPCS: 99284

== ENCOUNTER 2025-07-03 05:53 | Emergency (ER) | payer MEDICARE ==
[~2025-07-03] VITALS: Ht 162.6 cm; Wt 57.9 kg
[~2025-07-03 05:53] MED LIST changes: +DOXEPIN HCL10 MG PO
[2025-07-03 06:21] VITALS: BP 133/76
== END 2025-07-03 06:22 | disposition home or self-care (01) ==
LOC: ED 05:53
DX: F22 Delusional disorders (principal); F15.10 Other stimulant abuse, uncomplicated; E11.9 Type 2 diabetes mellitus without complications; I11.0 Hypertensive heart disease with heart failure; I50.9 Heart failure, unspecified; F17.200 Nicotine dependence, unspecified, uncomplicated; Z88.1 Allergy status to other antibiotic agents
CPT/HCPCS: 99283

== ENCOUNTER 2025-07-04 11:35 | Emergency (ER) | payer MEDICARE ==
[2025-07-04 11:48] VITALS: BP 00/00
== END 2025-07-04 11:45 | disposition left against medical advice (07) ==
LOC: ED 11:35
DX: R45.1 Restlessness and agitation (principal); Z53.29 Procedure and treatment not carried out because of patient's decision for other reasons
CPT/HCPCS: 99284

== ENCOUNTER 2025-07-18 01:49 | Emergency (ER) | payer MEDICARE ==
[~2025-07-18] VITALS: Ht 162.6 cm; Wt 53.6 kg
[2025-07-18] MEDS ORDERED: ALBUTEROL SULFATE 8 GM HOME.PACK INH ONE (04:45)
== END 2025-07-18 04:57 | disposition home or self-care (01) ==
LOC: ED 01:49
DX: J40 Bronchitis, not specified as acute or chronic (principal); I11.0 Hypertensive heart disease with heart failure; I50.9 Heart failure, unspecified; E11.9 Type 2 diabetes mellitus without complications; F17.200 Nicotine dependence, unspecified, uncomplicated; Z79.899 Other long term (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
CPT/HCPCS: 71045; 94640; 99283-25